=== PATIENT | female | born 1980 | race Two or more races ===

== ENCOUNTER 2023-02-18 09:35 | Emergency (ER) | payer BC, SELFPAY ==
[2023-02-18 09:44] VITALS: BP 139/103; PULSE 69; RESP 16; TEMP 36.8; O2SAT 95; BMI 19.4
--- NOTE | 2023-02-18 10:03 | ED_ITS ---
HPI - Abdominal Pain General Chief Complaint: Abdominal Pain Stated Complaint: ABDOMEN/KIDNEY PAIN Time Seen by Provider: 02/18/23 10:03 Source: patient Mode of arrival: Wheelchair Limitations: no limitations History of Present Illness HPI narrative: Patient process the emergency department complaining of abdominal pain. Patient states she has nausea, vomiting, and diarrhea. She had bowel problems for years. She has seen specialists in [place] and [place]. had a colonsocopy and egd in past. They have not been able to find anything. She states one doctor told her she had irritable bowel syndrome and another one to she was in remission. The patient states she Smokes a lot of marijuana. She does it to help her with her pain, and her anxiety. Patient denies any hematuria, dysuria. She has flank pain. She states she has vomited so much that her abdominal muscles hurt. Patient denies any vaginal bleeding, discharge. Related Data Previous Rx's Medication Instructions Recorded ketorolac 10 mg tablet 10 mg PO Q8H PRN pain 1 day #14 02/18/23 tabs ondansetron 8 mg disintegrating 8 mg PO Q8H 48 hours #6 tabs 02/18/23 tablet promethazine 25 mg tablet 25 mg PO TID PRN nausea and 02/18/23 vomiting #10 tabs Allergies Allergy/AdvReac Type Severity Reaction Status Date / Time Penicillins Allergy Anaphylaxis Verified 02/18/23 09:43 Review of Systems ROS Status of ROS 10 or more systems reviewed and unremarkable except as noted in history and below PFSH PFSH Social History Smoking status: Heavy tobacco smoker Exam Narrative Exam Narrative: Nurses notes and vital signs reviewed and patient is not hypoxic. General: Nontoxic,appears in pain, uncomfortable, no distress. Skin: Warm, dry, no pallor noted. No Rash Head: Normocephalic, atraumatic. Neck: Supple, non-tender. Eye: Pupils are equal, round and EOMI. No scleral icterus. Ears, Nose, Mouth, and Throat: TM clear, no posterior oropharynx erythema or nasal mucosal hypertrophy, uvula is mid-line Oral mucosa is moist Cardiovascular: Regular Rate and Rhythm without murmur, gallop or rub. Respiratory: No accessory muscle use or respiratory distress. Lungs are clear to auscultation, no wheezing, rales or rhonchi Chest Wall: no tenderness Back: No midline thoracic or lumbar vertebral tenderness. No CVA tenderness Musculoskeletal: normal ROM, no calf or popliteal tenderness, no lower extremity edema/swelling GI: Abdomen is soft, non-distended. Normal bowel sounds. diffsue llq pain, and rlq pain, tenderness to palpation. No rebound, guarding, or rigidity noted. Neurological: A&O x4. No cranial nerve dysfunction observed. No truncal ataxia. Moves all extremities. Sensation intact. Psychiatric: Cooperative and interactive. anxious. Constitutional Vital Signs, click to edit/add: Last Vital Signs Temp 99.3 F 02/18/23 13:21 Pulse 93 H 02/18/23 13:21 Resp 16 02/18/23 13:21 BP 118/67 02/18/23 13:21 Pulse Ox 95 02/18/23 13:21 O2 Del Method Room Air 02/18/23 13:21 Course Vital Signs Vital signs: Vital Signs Temperature 98.2 F 02/18/23 09:44 Pulse Rate 69 02/18/23 09:44 Respiratory Rate 16 02/18/23 09:44 Blood Pressure 139/103 H 02/18/23 09:44 Pulse Oximetry 95 02/18/23 09:44 Oxygen Delivery Method Room Air 02/18/23 09:44 Temperature 99.3 F 02/18/23 13:21 Pulse Rate 93 H 02/18/23 13:21 Respiratory Rate 16 02/18/23 13:21 Blood Pressure 118/67 02/18/23 13:21 Pulse Oximetry 95 02/18/23 13:21 Oxygen Delivery Method Room Air 02/18/23 13:21 MDM - Abdominal Pain MDM Narrative Medical decision making narrative: Even 1 L of normal saline. She was given Toradol, and Zofran. Patient continued to complain of pain and she was given 4 mg of morphine. Patient states she smokes a lot of marijuana she has not been able to smoke any since she's been here she is getting anxious and she's having chest pain. EKG was done and is unremarkable sinus rhythm without any acute ischemic changes. Patient does not have any back pain, flank pain, no tenderness to her thoracic, or lumbar spine. There was no signs of infection. The patient denies any paresthesias, Saddle anesthesia, urinary, bowel incontinence, or retention or proximal weakness. Discussed all of the CT scan results and laboratory studies with patient. Patient given a prescription for Phenergan. She was also given a emergency department. Patient is stable for outpatient follow-up and treatment. At this time the patient is without objective evidence of an acute process requiring hospitalization or inpatient management. The patient has remained hemodynamically stable. No additional indication for emergent studies at this time. I answered all questions. Discussed discharge instructions including standard anticipatory guidance and what should prompt a return to the emergency department, including if they get worse are not getting better or develops any new or concerning symptoms. I've given them specific time frame in which to follow-up, and who to follow-up with. The patient demonstrates understanding. P atient is nontoxic and stable for discharge with outpatient follow-up. This note was created with the assistance of a speech recognition program. Although the intention is to generate documents that actually reflects the content of the visit, no guarantees can be provided that every mistake has been identified and corrected by editing. Differential Diagnosis Differential diagnosis: Likely abdominal pain, acute appendicitis, diverticulitis, gastroenteritis and small bowel obstruction Lab Data Attestation: I reviewed the patient's lab results. Labs: Lab Results 02/18/23 02/18/23 02/18/23 Range/Units 10:00 11:50 13:20 WBC 16.6 H (4.0-11.0) 10^3/uL RBC 4.27 (4.20-5.40) 10^6/uL Hgb 13.8 (12.0-16.0) g/dL Hct 40.4 (36.0-48.0) % MCV 94.6 (81.0-99.0) fL MCH 32.3 (26.7-34.0) pg MCHC 34.2 (29.9-35.2) g/dL RDW 13.0 (11.0-15.0) % Plt Count 257 (150-450) 10^3/uL MPV 9.5 (9.5-13.5) fL Neut % (Auto) 81.1 H (43.0-75.0) % Lymph % (Auto) 10.2 L (20.5-60.0) % [place] % (Auto) 8.1 (1.7-12.0) % Eos % (Auto) 0.1 L (0.9-7.0) % Baso % (Auto) 0.2 (0.2-2.0) % Neut # (Auto) 13.5 H (1.4-6.5) 10^3/uL Lymph # (Auto) 1.7 (1.2-3.8) 10^3/uL [place] # (Auto) 1.4 H (0.3-0.8) 10^3/uL Eos # (Auto) 0.0 (0.0-0.7) 10^3/uL Baso # (Auto) 0.0 (0.0-0.1) 10^3/uL Abs Immat Gran (auto) 0.05 H (0.00-0.03) 10^3/uL Imm/Tot Granulo (auto) 0.3 (0.0-0.5) % Sodium 134 L (136-145) mmol/L Potassium 3.6 (3.5-5.1) mmol/L Chloride 101 (98-107) mmol/L Carbon Dioxide 23.8 (21.0-32.0) mmol/L Anion Gap 12.8 BUN 6.0 L (7.0-18.0) mg/dL Creatinine 0.73 (0.55-1.02) mg/dL Est GFR ( Amer) >60 (>=60) Est GFR (Non-Af Amer) >60 (>=60) BUN/Creatinine Ratio 8.2 Glucose 106 (74-106) mg/dL Lactate 0.7 (0.4-2.0) mmol/L Calcium 8.5 (8.5-10.1) mg/dL Total Bilirubin 1.0 (0.2-1.0) mg/dL AST 8 L (15-37) U/L ALT 19 (14-59) U/L Alkaline Phosphatase 83 (46-116) U/L Total Protein 7.2 (6.4-8.2) g/dL Albumin 3.8 (3.4-5.0) g/dL Globulin 3.4 g/dL Albumin/Globulin Ratio 1.1 Lipase 38.0 L (73.0-393.0) U/L Urine Color Yellow (YELLOW) Urine Clarity Clear (CLEAR) Urine pH 6.5 (5.0-9.0) Ur Specific [place] <=1.005 A (1.005-1.025) Urine Protein Trace (NEG/TRACE) mg/dL Urine Glucose (UA) Negative (NEGATIVE) mg/dL Urine Ketones 15 A (NEGATIVE) mg/dL Urine Occult Blood Trace-i (NEGATIVE) Urine Nitrite Negative (NEGATIVE) Urine Bilirubin Negative (NEGATIVE) Urine Urobilinogen 1.0 (0.2-1.0) EU/dL Ur Leukocyte Esterase Negative (NEGATIVE) Urine RBC 5-10 A (0-2) #/HPF Urine WBC None seen (NONE SEEN) #/HPF Ur Squamous Epith Cells Many A (NONE/RARE) #/LPF Urine Crystals None seen (None Seen) #/HPF Urine Bacteria None seen (NONE SEEN) #/HPF Urine Casts None seen (NONE SEEN) #/LPF Urine Mucus Trace A (NONE SEEN) Ur Culture Indicated? No Urine Opiates Screen Negative (NEGATIVE) Ur Buprenorphine Scrn Negative (NEGATIVE) Ur Oxycodone Screen Negative (NEGATIVE) Urine Methadone Screen Negative (NEGATIVE) Ur Propoxyphene Screen Negative (NEGATIVE) Ur Barbiturates Screen Negative (NEGATIVE) U Tricyclic Antidepress Negative (NEGATIVE) Ur Phencyclidine Scrn Negative (NEGATIVE) Ur Amphetamines Screen Negative (NEGATIVE) U Methamphetamines Scrn Negative (NEGATIVE) U Benzodiazepines Scrn Negative (NEGATIVE) Urine Cocaine Screen Negative (NEGATIVE) U Cannabinoids Screen Positive A (NEGATIVE) SARS-CoV-2 (PCR) Negative (NEGATIVE) ECG Data Attestation: I personally reviewed and interpreted this ECG as follows: Discharge Plan Discharge Chief Complaint: Abdominal Pain 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, Abdominal pain Patient Disposition: Home, Self-Care Time of Disposition Decision: 14:04 Condition: Good Mode of Transportation: Private Vehicle Prescriptions / Home Meds: New promethazine 25 mg tablet 25 mg PO TID PRN (Reason: nausea and vomiting) Qty: 10 0RF ondansetron 8 mg tablet,disintegrating 8 mg PO Q8H 2 Days Qty: 6 0RF Rx Instructions: 1st dose 1-2 hr before radiation ketorolac 10 mg tablet 10 mg PO Q8H PRN (Reason: pain) 1 Days Qty: 14 0RF Instructions: Abdominal Pain (ED), Pelvic Pain (ED) Stand Alone Forms: Portal Instructions Referrals: Abhay Moreno MD [Primary Care Provider] - 1 week
--- NOTE | 2023-02-18 10:17 | CT_ITS ---
The [address] [address] Patient Name: NAHUM SEGOVIA MRN: [id number] date: 1980 Sex: F Assigned Patient Location: ER Current Patient Location: ER Accession/Order Number: [id number] Exam Date: 02/18/2023 11:03 Report Date: 02/18/2023 11:47 At the request of: ROSS VALLEJO Procedure: CT abdomen pelvis w con EXAM: CT abdomen pelvis w con; [id number] REASON FOR EXAM: abd pain TECHNIQUE: Helical CT images of the abdomen and pelvis were obtained after the administration of IV contrast. Multiplanar reformats were generated at the scanner. Dose reduction technique used: Automated exposure control and/or adjustment of the mA and/or kV according to patient size and/or use of iterative reconstruction technique. COMPARISON: CT abdomen/pelvis 07/01/2018. FINDINGS: Visualized Chest: Partially visualized benign pericardial cyst. No acute abnormality. Abdomen: Liver: -Multiple well-circumscribed subcentimeter hypodensities in both right and left lobes liver are too small to further characterize with any imaging modality though likely represent benign lesions. -Mild focal fatty infiltration along the falciform ligament. Gallbladder: Resected. Bile Ducts: Likely within expected limits given postcholecystectomy. Overall degree of intrahepatic and extrahepatic biliary ductal dilatation is similar compared with 07/01/2018. Pancreas: No mass, ductal dilatation, or inflammatory changes. Spleen: No splenomegaly or focal lesion. Adrenals: -Intermediate attenuation left adrenal nodule measuring 13 x 13 mm (series 3 image 22), previously 9 x 10 mm on 07/01/2018. -No right adrenal nodule. Kidneys: -No stones or hydronephrosis. -No mass. Vascular: -Mild narrowing of the left renal vein as it passes between the aorta and SMA. There is reflux of contrast into the left gonadal vein. Lymph Nodes: No adenopathy. Abdominal Wall: No hernia or mass. Pelvis: -Heterogeneously enhancing fibroid uterus. -There is prominent vasculature about the uterus and vagina which can be seen in the setting of pelvic congestion syndrome. Bowel/Peritoneal Cavity/Mesentery: -No bowel obstruction or significant ileus. -No acute inflammatory changes. -No free air or free fluid. Musculoskeletal: No acute fracture or suspicious osseous lesion. CT/CT abdomen pelvis w con IMPRESSION: 1. No acute intra-abdominal abnormality demonstrated. 2. Constellation of findings suspect for pelvic congestion syndrome secondary to narrowing of the left renal vein as it passes between the aorta and SMA. 3. Enhancing fibroid uterus. Degree of enhancement is more than typically seen which increases the suspicion for fibroid malignant degeneration, however, this finding could be within expected limits given pelvic congestion. Consider LAB AIDE consultation for further evaluation. 4. Left adrenal nodule measuring up to 13 mm, mildly increased in size compared with 10 mm on 07/01/2018. Recommend nonemergent adrenal protocol CT for further evaluation. Electronically authenticated by: KALYA MANCUSO Date: 02/18/2023 11:47
[2023-02-18] MEDS: 0.9 % SODIUM CHLORIDE 1,000 ML 999 ML IV (10:20)
[2023-02-18] MEDS: ONDANSETRON PF 4 MG/2 ML VIAL IV (10:21)
[2023-02-18] MEDS: KETOROLAC TROMETHAMINE 30 MG/ML VIAL IVP (10:21)
[2023-02-18 10:36] LABS: Basophils Percent Auto 0.2 % (0.2-2.0); Eosinophils Percent Auto 0.1 % (0.9-7.0); Hematocrit 40.4 % (36.0-48.0); Hemoglobin 13.8 g/dL (12.0-16.0); Immature Granulocytes Abs Auto 0.05 10^3/uL (0.00-0.03); Immature Granulocytes Pct Auto 0.3 % (0.0-0.5); Lymphocytes Absolute Auto 1.7 10^3/uL (1.2-3.8); Lymphocytes Percent Auto 10.2 % (20.5-60.0); Mean Corpuscular HGB Conc 34.2 g/dL (29.9-35.2); Mean Corpuscular Hemoglobin 32.3 pg (26.7-34.0); Mean Corpuscular Volume 94.6 fL (81.0-99.0); Mean Platelet Volume 9.5 fL (9.5-13.5); Monocytes Absolute Auto 1.4 10^3/uL (0.3-0.8); Monocytes Percent Auto 8.1 % (1.7-12.0); Neutrophils Absolute Auto 13.5 10^3/uL (1.4-6.5); Neutrophils Percent Auto 81.1 % (43.0-75.0); Platelet Count 257 10^3/uL (150-450); Red Blood Count 4.27 10^6/uL (4.20-5.40); White Blood Count 16.6 10^3/uL (4.0-11.0)
[2023-02-18 11:05] LABS: Alanine Aminotransferase 19 U/L (14-59); Albumin Globulin Ratio 1.1; Albumin Level 3.8 g/dL (3.4-5.0); Alkaline Phosphatase 83 U/L (46-116); Anion Gap 12.8; Aspartate Amino Transferase 8 U/L (15-37); BUN Creatinine Ratio 8.2; Calcium 8.5 mg/dL (8.5-10.1); Carbon Dioxide 23.8 mmol/L (21.0-32.0); Chloride 101 mmol/L (98-107); Estimated GFR (African America >60 (>=60); Estimated GFR (Non-African Ame >60 (>=60); Globulin 3.4 g/dL; Glucose 106 mg/dL (74-106); Potassium 3.6 mmol/L (3.5-5.1); Sodium 134 mmol/L (136-145); Total Protein 7.2 g/dL (6.4-8.2)
[2023-02-18 11:07] LABS: Lactate/Lactic Acid 0.7 mmol/L (0.4-2.0)
[2023-02-18 12:15] LABS: SARS-CoV-2 Ag NEGATIVE (NEGATIVE)
--- NOTE | 2023-02-18 12:53 | PC.NURSE ---
Pt continues to state she can not provide a urine sample at this time. I suggested possibly doing a straight cath but pt states she would refuse. Endorsed to Dr Foster
[2023-02-18] MEDS: HYOSCYAMINE SULFATE 0.125 MG TAB.SUBL PO (13:09)
[2023-02-18] MEDS: MORPHINE SULFATE 4 MG/ML VIAL IV (13:15)
[2023-02-18 13:21] VITALS: BP 118/67; PULSE 93; RESP 16; TEMP 37.4; O2SAT 95
--- NOTE | 2023-02-18 13:41 | ECG_ITS ---
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
[2023-02-18] MEDS: PROMETHAZINE HCL 25 MG/ML VIAL IV (13:58)
[2023-02-18 14:06] LABS: Bilirubin Urine NEGATIVE (NEGATIVE); Blood Urine TRACE-I (NEGATIVE); Clarity Urine CLEAR (CLEAR); Color Urine YELLOW (YELLOW); Glucose Urine UA NEGATIVE (NEGATIVE); Ketones Urine 15 mg/dL (NEGATIVE); Leukocyte Esterase Urine NEGATIVE (NEGATIVE); Nitrite Urine NEGATIVE (NEGATIVE); Protein Urine TRACE mg/dL (NEG/TRACE); Specific Gravity Urine <=1.005 (1.005-1.025); pH Urine 6.5 (5.0-9.0)
[2023-02-18 14:11] LABS: Urine Microscopic Indicated YES
[2023-02-18 14:15] LABS: Bacteria Urine NONE SEEN #/HPF (NONE SEEN); Cast Seen? NONE SEEN #/LPF (NONE SEEN); Crystals Seen? None Seen #/HPF (None Seen); Mucus Urine TRACE (NONE SEEN); Squamous Epithelial Cell Urine MANY #/LPF (NONE/RARE); Urine Culture Indicated NO; WBC Urine NONE SEEN #/HPF (NONE SEEN)
[2023-02-18 14:18] LABS: Amphetamine Screen Urine NEGATIVE (NEGATIVE); Barbiturates Screen Urine NEGATIVE (NEGATIVE); Benzodiazepines Screen Urine NEGATIVE (NEGATIVE); Buprenorphine Screen Urine NEGATIVE (NEGATIVE); Cannabinoid Screen Urine POSITIVE (NEGATIVE); Cocaine Screen Urine NEGATIVE (NEGATIVE); Methadone Screen Urine NEGATIVE (NEGATIVE); Methamphetamines Screen Urine NEGATIVE (NEGATIVE); Opiate Screen Urine NEGATIVE (NEGATIVE); Oxycodone Screen Urine NEGATIVE (NEGATIVE); Phencyclidine Screen Urine NEGATIVE (NEGATIVE); Tricyclic Antidepressant Urine NEGATIVE (NEGATIVE)
[2023-02-18 14:44] VITALS: BP 118/67; PULSE 95; RESP 20; TEMP 37.4; O2SAT 95
[2023-02-18 16:10] LABS: SARS-CoV-2 NAA NOT DETECTED (NOT DETECTE)
== END 2023-02-18 14:52 | disposition home or self-care (01) ==
PROVIDERS: Emergency Provider Emergency Medicine; PCP Family Medicine
DX: R10.9 Unspecified abdominal pain (principal); N94.89 Other specified conditions associated with female genital organs and menstrual cycle; F12.90 Cannabis use, unspecified, uncomplicated; F17.210 Nicotine dependence, cigarettes, uncomplicated; Z20.822 Contact with and (suspected) exposure to COVID-19
CPT/HCPCS: 36415; 74177; 80053; 80307; 81001; 83605; 83690; 85025; 87635; 87811; 93005; 96361; 96374; 96375; 99285; Q9967; U0003

== ENCOUNTER 2023-08-09 15:06 | Outpatient (OUT) | payer BC, SELFPAY ==
[2023-08-09 15:50] LABS: Estimated Average Glucose 108 mg/dL; Glycohemoglobin A1C 5.4 % (4.5-6.2)
[2023-08-09 15:52] LABS: Basophils Percent Auto 0.4 % (0.2-2.0); Eosinophils Percent Auto 0.7 % (0.9-7.0); Hematocrit 41.2 % (36.0-48.0); Hemoglobin 13.7 g/dL (12.0-16.0); Lymphocytes Absolute Auto 3.3 10^3/uL (1.2-3.8); Lymphocytes Percent Auto 60.2 % (20.5-60.0); Mean Corpuscular HGB Conc 33.3 g/dL (29.9-35.2); Mean Corpuscular Hemoglobin 31.9 pg (26.7-34.0); Mean Corpuscular Volume 95.8 fL (81.0-99.0); Mean Platelet Volume 9.5 fL (9.5-13.5); Monocytes Absolute Auto 0.6 10^3/uL (0.3-0.8); Monocytes Percent Auto 11.1 % (1.7-12.0); Neutrophils Absolute Auto 1.5 10^3/uL (1.4-6.5); Neutrophils Percent Auto 27.6 % (43.0-75.0); Platelet Count 201 10^3/uL (150-450); Red Cell Distribution Width 12.3 % (11.0-15.0); White Blood Count 5.4 10^3/uL (4.0-11.0)
--- NOTE | 2023-08-09 15:58 | XR_ITS ---
The [place] [id number] Patient Name: NAHUM SEGOVIA MRN: [id number] date: 1980 Sex: F Assigned Patient Location: LAB Current Patient Location: Accession/Order Number: [id number] Exam Date: 08/09/2023 15:52 Report Date: 08/10/2023 07:51 At the request of: JOHN PRICE Procedure: XR lumbar spine 2-3V EXAMINATION: XR lumbar spine 2-3V HISTORY: lumbar radiculopathy M54.16 COMPARISON: No relevant comparison available. FINDINGS: BONES: Normal alignment with no acute fracture or spondylolisthesis. Mild degenerative spondylosis most significant at L2-L3. Mild facet osteoarthropathy DISC SPACES: Normal. No significant disc height narrowing, subluxation, or endplate abnormality. PARASPINOUS: Negative. No paraspinous abnormality is seen. OTHER: Right upper quadrant calcifications from cholecystectomy XR/XR lumbar spine 2-3V IMPRESSION: Mild degenerative changes Electronically authenticated by: RONNIE DUONG Date: 08/10/2023 07:51
[2023-08-09 16:02] LABS: Alanine Aminotransferase 18 U/L (14-59); Albumin Globulin Ratio 1.1; Albumin Level 3.6 g/dL (3.4-5.0); Alkaline Phosphatase 64 U/L (46-116); Anion Gap 11.2; Aspartate Amino Transferase 13 U/L (15-37); BUN Creatinine Ratio 9.9; Bilirubin Total 0.3 mg/dL (0.2-1.0); Calcium 8.5 mg/dL (8.5-10.1); Carbon Dioxide 27.2 mmol/L (21.0-32.0); Chloride 106 mmol/L (98-107); Chol HDL Ratio 2.6; Cholesterol 171 mg/dL (<=200); Estimated GFR (African America >60 (>=60); Estimated GFR (Non-African Ame 60 (>=60); Free T3 1.99 pg/mL (2.18-3.98); Globulin 3.4 g/dL; Glucose 90 mg/dL (74-106); HDL Cholesterol 67 mg/dL (40-60); Potassium 3.4 mmol/L (3.5-5.1); Sodium 141 mmol/L (136-145); Triglycerides 134 mg/dL (<=150); VLDL CHOLESTEROL 26.8 mg/dL
[2023-08-10 10:10] LABS: Insulin 33.4 uIU/mL (2.6-24.9)
== END 2023-08-09 15:07 | disposition home or self-care (01) ==
LOC: LAB 15:07
PROVIDERS: PCP Family Medicine; Visit Provider Family Medicine
DX: M54.16 Radiculopathy, lumbar region (principal); R53.1 Weakness; E78.5 Hyperlipidemia, unspecified; R73.09 Other abnormal glucose; D64.9 Anemia, unspecified; E55.9 Vitamin D deficiency, unspecified
CPT/HCPCS: 36415; 72100; 80053; 80061; 82306; 83036; 83525; 83540; 84436; 84443; 84481; 85025

== ENCOUNTER 2023-10-28 07:03 | Outpatient (OUT) | payer SELFPAY ==
--- OUTSIDE RECORDS SUMMARY | 2023-10-28 07:08 | XMS_ITS | CCD ---
Author Organization [facility] Care Team Providers Care Track Watchman Name Role Phone John Moreno MD Primary Care Provider [phone] John Moreno Primary Care Physician Gregg PICKERING Attending Unavailable Ethany PROVIDERJohn Referring Unavailabl e Gregg PICKERING Attending Unavailable HOY ., DR LOPEZ Admitting Unavailable HOY ., DR LOPEZ Attending Unavailable HOY ., DR LOPEZ Primary Care Unavailable HOY ., DR LOPEZ Consulting Unavailable PEP, DR RONNIE Fierro Consulting Unavailable HOY ., DR LOPEZ Admitting Unavailable HOY ., DR LOPEZ Attending Unavailable HOY ., DR LOPEZ Primary Care Unavailable HOY ., DR LOPEZ Consulting Unavailable Laura Schrader Consulting Unavailable SHELDON BENNETT Admitting Unavailable SHELDON BENNETT Attending Unavailable HOY ., DR LOPEZ Primary Care Unavailable SHELDON BENNETT Consulting Unavailable NILL ., DR ESCOBEDO Admitting Unavailable NILL ., DR ESCOBEDO Attending Unavailable HOY ., DR LOPEZ Primary Care Unavailable NILL ., DR ESCOBEDO Consulting Unavailable SEMAJ MCGOVERN Consulting Unavailable MARLONMERRILL NARANJO Consulting Unava ilable HOY ., DR LOPEZ Admitting Unavailable HOY ., DR LOPEZ Attending Unavailable HOY ., DR LOPEZ Primary Care Unavailable NILL ., DR ESCOBEDO Admitting Unavailable NILL ., DR ESCOBEDO Attending Unavailable HOY ., DR LOPEZ Primary Care Unavailable NILL ., DR ESCOBEDO Consulting Unavailable JOHN MORENO Primary Care Unavailable CAROL MCCLELLAND Referring Unavailable POOL, QUYNH E Referring Unavailable JOHN MORENO Primary Care Unavailable CAROL MCCLELLAND Referring Unavailable JOHN MORENO Primary Care Unavailable CAROL MCCLELLAND Referring Unavailable HOYJOHN M Primary Care Unavailable CAROL MCCLELLAND Attending Unavailable CAROL MCCLELLAND Referring Unavailable JOHN MORENO Primary Care Unavailable CAROL MCCLELLAND Referring Unavailable JOHN MORENO Primary Care Unavailable John Moreno MD Primary Care Provider [phone] Quynh Hughes CNM Unavailable JEANETTE CALABRESE Referring Unavailable JEANETTE CALABRESE Attending Unavailable JOHN MORENO Primary Care Unavailable RADIOLOGY, RADIOLOGIST Attending Unavailab le JOURDAN PASTRANAAE M Referring Unavailable HAMOUDA, LINDA M Referring Unavailable HAMOUDA, LINDA M Referring Unavailable HAMOUDA, LINDA M Attending Unavailable Allergies Allergy Classification Reported Allergen(s) Allergy Type Date of Onset Reaction(s) Facility Adhesive Tape (3 sources) Adhesive Tape Substance Allergy 3 [employer] Latex (3 sources) Latex Substance Allergy 3 [employer] NSAIDs (3 sources) Ibuprofen Drug Allergy 3 [employer] Penicillins (antibiotic) (3 sources) Penicillins Drug Allergy 3 [employer] (4 sources) Adhesive Tape; Translations: [Adhesive tape] Propensity to adverse reactions to drug 5 [employer] (3 sources) Desonide; Translations: [DESONIDE] Drug Allergy 5 Other (See Comments) [employer] (3 sources) Ibuprofen; Translations: [IBUPROFEN] Drug Allergy 3 Other (See Comments) [employer] (5 sources) Latex; Translations: [Latex] Propensity to adverse reactions to drug 3 Other (See Comments), Weal (disorder) [employer] Work Phone: (5 sources) Penicillins; Translations: [Penicillins] Propensity to adverse reactions to drug 5 Rash [employer] Work Phone: (2 sources) predniSONE; Translations: [PREDNISONE] Drug Allergy 6 Swelling [employer] Work Phone: (3 sources) Cephalexin; Translations: [cephalexin] Drug Allergy 3 Unknown (qualifier value) [facility] (2 sources) Penicillin; Translations: [penicillin] Drug Allergy Anaphylaxis (disorder) General [facility] (1 source) Cephalexin Drug Allergy [facility] (2 sources) Ibuprofen Drug Allergy 5 [facility] (2 sources) Latex Drug allergy (disorder) 5 [facility] (2 sources) predniSONE Drug Allergy 6 [facility] (1 source) Adhesive agent; Translations: [ADHESIVE] Propensity to adverse reactions to drug (disorder) 3 [facility] Rep[facility] (1 source) Morphine; Translations: [MORPHINE] Drug Allergy 3 [facility] Medications Current Medications Medication Drug Class(es) Dates Sig (Normalized) Sig (Original) ondansetron 4 mg disintegrating oral tablet (6 sources) Serotonin-3 Receptor Antagonist Start: 09-04-2021 take 1 tablet by mouth every eight hours as needed for nausea ondansetron (ZOFRAN ODT) 4 MG disintegrating tablet Take 1 tablet by mouth every 8 hours as needed for Nausea or Vomiting 10 tablet 0 09/04/2021 Active Start: 09-03-2021 End: 09-04-2021 ondansetron (ZOFRAN) injecti on 4 mg Start: 09-03-2021 End: 09-03-2021 ondansetron (ZOFRAN) 4 MG/2M L injection Start: 01-24-2021 take 1 tablet by prince th every eight hours as needed for nausea ondansetron (ZOFRAN ODT) 4 MG disintegrating tablet Take 1 tablet by mouth every 8 hours as needed for Nausea, Vomiting or Other (headache) 10 tablet 0 01/24/2021 Active Completed/Discontinued Medications Medication Drug Class(es) Dates Sig (Normalized) Sig (Original) albuterol 0.833 mg/ml / ipratropium bromide 0.167 mg/ml inhalation solution (2 sources) Anticholinergic, beta2-Adrenergic Agonist Start: 09-03-2021 End: 09-03-2021 ipratropium-albute rol (DUONEB) nebulizer solution 1 ampule Start: 09-03-2021 End: 09-03-2021 ipratropium-albuterol (DUONE B) 0.5-2.5 (3) MG/3ML nebulizer solution calcium chloride 0.0014 meq/ml / potassium chloride 0.004 meq/ml / sodium chloride 0.103 meq/ml / sodium lactate 0.028 meq/ml injectable solution (1 source) Start: 09-04-2021 End: 09-04-2021 lactated ringers infusion 1 ml ketorolac tromethamine 30 mg/ml cartridge (2 sources) Nonsteroidal Anti-inflammatory Drug, Cyclooxygenase Inhibitor Start: 09-03-2021 End: 09-04-2021 ketorolac (TORADOL) injection 30 mg 1 ml LORazepam 2 mg/ml injection (1 source) Benzodiazepine Start: 09-04-2021 End: 09-04-2021 LORazepam (ATIVAN) injection 1 mg 50 ml sodium chloride 9 mg/ml injection (2 sources) Start: 09-03-2021 End: 09-04-2021 0.9 % sodium chloride bolus Problems Active Problems Problem Classification Problem Date Documented Da te Episodic/Chronic Abdominal hernia (1 source) Left inguinal hernia 01-16-2022 Episodic Abdominal pain (8 sources) Unspecified abdominal pain; Translations: [Epigastric pain] Onset: 2 Episodic Asthma (1 source) Exacerbation of moderate persistent asthma; Translations: [Moderate persistent asthma with (acute) exacerbation] Chronic Benign neoplasm of uterus (1 source) Uterine leiomyoma 01-16-2022 Episodic Complications of surgical procedures or medical care (1 source) Postgastric surgery syndrome 01-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 Episodic Esophageal disorders (2 sources) Gastroesophageal reflux disease; Translations: [Gastro-esophageal reflux disease without esophagitis] Onset: 2 01-16-2022 Chronic Fluid and electrolyte disorders (1 source) Dehydration; Translations: [Dehydration] Episodic Nonmalignant breast conditions (1 source) Fibrocystic disease of breast 01-16-2022 Chronic Nonmalignant breast conditions (6 sources) Unspecified lump in unspecified breast; Translations: [Unspecified lump in the left breast, unspecified quadrant] Onset: 4 Episodic Other connective tissue disease (1 source) Impingement syndrome of shoulder region 01-16-2022 Episodic Other female genital disorders (1 source) Other specified noninflammatory disorders of vagina; Translations: [Other specified noninflammatory disorders of vagina] Onset: 3 Episodic Other gastrointestinal disorders (3 sources) Diarrhea; Translations: [Diarrhea, unspecified] Onset: 2 Episodic Other gastrointestinal disorders (1 source) Hemorrhagic diarrhea 01-21-2022 Episodic Other gastrointestinal disorders (1 source) History of gastritis 01-16-2022 Episodic Other lower respiratory disease (2 sources) Dyspnea; Translations: [Shortness of breath] Episodic Other screening for suspected conditions (not mental disorders or infectious disease) (7 sources) Other abnormal and inconclusive findings on diagnostic imaging of breast; Translations: [Encounter for screening mammogram for malignant neoplasm of breast] Onset: 3 05-04-2023 Episodic Regional enteritis and ulcerative colitis (1 source) Crohn's disease; Translations: [Crohn's disease, unspecified, with unspecified complications] Chronic Residual codes; unclassified (1 source) Tobacco user; Translations: [Tobacco use] Onset: 2 Episodic Residual codes; unclassified (2 sources) Personal history of other specified conditions; Translations: [Personal history of other specified conditions] Onset: 4 Episodic Screening and history of mental health and substance abuse codes (1 source) Tobacco use and exposure - finding 01-21-2022 Chronic Sexually transmitted infections (not HIV or hepatitis) (1 source) Gonococcal infection, unspecified; Translations: [Gonococcal infection, unspecified] Onset: 3 Episodic Spondylosis; intervertebral disc disorders; other back problems (1 source) Cervical disc disorder 01-16-2022 Chronic Spondylosis; intervertebral disc disorders; other back problems (1 source) Low back pain 01-16-2022 Episodic Substance-related disorders (1 source) Nicotine dependence, cigarettes, uncomplicated; Translations: [NICOTINE DEPEND CIGARETTES UNCOMP] Onset: 2 Chronic Superficial injury; contusion (2 sources) Contusion of head; Translations: [Contusion of unspecified part of head, initial encounter] Episodic Unclassified (1 source) Body mass index 20-24 - normal 01-21-2022 Unclassified (1 source) CONTACT W/AND (SUSP) EXPOS COVID-19; Translations: [CONTACT W/AND (SUSP) EXPOS COVID-19] Onset: 2 Urinary tract infections (4 sources) Acute cystitis with hematuria; Translations: [ACUTE CYSTITIS WITH HEMATURIA] Onset: 3 Episodic Past or Other Problems Problem Classification Problem Date Documented Da te Episodic/Chronic Gastritis and duodenitis (1 source) Gastritis, unspecified, without bleeding; Translations: [GASTRITIS UNS WITHOUT BLEEDING] Onset: 02-20-2022 Episodic Nausea and vomiting (2 sources) Nausea and vomiting; Translations: [Nausea with vomiting, unspecified] Onset: 02-20-2022 Episodic Other gastrointestinal disorders (1 source) Change in bowel habit; Translations: [CHANGE IN BOWEL HABIT] Onset: 02-20-2022 Episodic Other gastrointestinal disorders (1 source) Diarrhea, unspecified; Translations: [DIARRHEA UNSPECIFIED] Onset: 02-20-2022 Episodic Residual codes; unclassified (1 source) Acquired absence of other specified parts of digestive tract; Translations: [ACQ ABSENCE OTH PART DIGESTV TRACT] Onset: 02-20-2022 Episodic Results Test Name Value Interpretation Reference Range Facility Orders Onlyon 09-28-2023 Orders Only [id number] Betzy Roberts 1980 F Date Provider Department Center 09/28/2023 VERÓNICA SUBRAMANIAN None Family History Problem Relation Age of Onset Colon cancer Maternal Grandfather Colon cancer Paternal Grandfather Family Status - Relation Status Age at Maternal Grandfather Paternal Grandfather Normal [facility] APTTon 09-07-2023 ACTIVATED PARTIAL THROMBOPLASTIN TIME IN PPP BY COAGULATION ASSAY 30.4 Seconds Normal 25.0-35.0 [facility] Comment on above: Result Comment: Clin ical significance of the APTT is questionable in the presence of heparin. Performed By: #### L [id number] #### [facility] ([facility]) [address] [place] [address] BI MAMMOGRAM POST BIOPSY CLI Eric RICHARDSon 09-07-2023 BI MAMMOGRAM POST BIOPSY CLIP LEFT This is a summary report. The complete report is available in the patient's medical record. If you cannot access the medical record, please contact the sending organization for a detailed fax or copy. BI MAMMOGRAM POST BIOPSY CLIP LEFT 09/07/2023 4:10 PM HISTORY: Status post ultrasound-guided left breast biopsy to check for clip deployment.. COMPARISON: April 2023, December 2014 and January 2013 TECHNIQUE: Conventional mammogram images of the Left breast in CC and MLO projections. LATERALITY: Left FINDINGS: The breasts are heterogeneously dense, which may obscure small masses. Successful deployment of post biopsy clip in the upper outer aspect of the left breast with adjacent linear lucency likely represents postprocedure air. IMPRESSION: ASSESSMENT: Post Procedure mammograms for marker placement RECOMMENDATION: Waiting on Pathology A letter of notification will be sent to the patient regarding the results. Electronically signed: Cr Tomas. Normal [facility] CBCon 09-07-2023 Erythrocyte distribution width (RBC) [Ratio] 12.7 % Normal 11.5-15.0 [facility] Comment on above: Performed By: #### L [id number] #### [facility] ([facility]) [address] [place] [address] ERYTHROCYTE MEAN CORPUSCULAR HEMOGLOBIN CONCENTRATION (G/DL) BY AUTOMATED 34.6 g/dL Normal 32.0-35.0 [facility] Comment on above: Performed By: #### L [id number] #### [facility] ([facility]) [address] [place] [address] Hematocrit (Bld) [Volume fraction] 39.0 % Normal 36.0-48.0 [facility] Comment on above: Performed By: #### L [id number] #### [facility] ([facility]) [address] [place] [address] Hemoglobin (Bld) [Mass/Vol] 13.5 g/dL Normal 12.0-15.0 [facility] Comment on above: Performed By: #### L [id number] #### [facility] ([facility]) [address] [place] [address] MCH (RBC) [Entitic mass] 32.3 pg Normal 27.0-33.0 [facility] Comment on above: Performed By: #### L [id number] #### [facility] [address] [place] [address] MCV (RBC) [Entitic vol] 93.3 fL Normal 82.0-98.0 [facility] Comment on above: Performed By: #### L [id number] #### [facility] ([facility]) [address] [place] [address] PLATELETS (10*3/UL) IN BLOOD AUTOMATED COUNT 261 10*3/uL Normal 150-400 [facility] Comment on above: Performed By: #### L [id number] #### [facility] ([facility]) [address] [place] [address] RBC (Bld) [#/Vol] 4.18 10*6/uL Normal 3.80-5.00 [facility] Comment on above: Performed By: #### L [id number] #### [facility] ([facility]) [address] [place] [address] WBC (Bld) [#/Vol] 6.58 10*3/uL Normal 4.00-10.60 [facility] Comment on above: Performed By: #### L [id number] #### [facility] ([facility]) [address] [facility] [place] [address] HISTOLOGY - TISSUE EXAMon LAB AP ASR DISCLAIMER The interpretation of this case included the use of immunohistochemistry or special stains. These tests have not been cleared or approved by the U.S. Food and Drug Administration. The FDA has determined that such clearance or approval is not necessary. These tests are used for clinical purposes and should not be regarded as investigational or for research. This laboratory is certified to perform high complexity testing under the Clinical Laboratory Improvement Amendments of 1998. Normal [facility] Comment on above: Performed By: #### L [id number] ####[facility] ([facility])[address] [place] [address] LAB AP CASE REPORT Normal [facility] Comment on above: Result Comment: Surg ical Pathology Case: [id number] Authorizing Provider: Linda Pastrana MD Collected: 09/07/2023 1345 Ordering Location: [facility] US [facility]AGING Received: 09/07/2023 1612 Pathologist: Matthew Cano MD Specimen: Breast, left Performed By: #### L [id number] ####[facility] ([facility])[address] [place] [address] LAB AP CLINICAL INFORMATION Order Diagnoses [facility] Comment on above: Result Comment: N63. 0 - Breast lump [ICD-10-CM] N63.20 - Mass of left breast, unspecified quadrant [ICD-10-CM] R92.8 - Other abnormal and inconclusive findings on diagnostic imaging of breast [ICD-10-CM] Performed By: #### L [id number] ####[facility] ([facility])[address] [place] [address] LAB AP GROSS DESCRIPTION A. Breast. [facility] Comment on above: Result Comment: Part A is received in formalin labeled with the patient's name Nahum Roberts and breast left. It consists of 2 yellow-white, fibrofatty needle core segments, 0.7 x 0.2 cm and 0.9 x 0.2 cm, submitted in cassette A1. Also received in the container, are 4 yellow-white, fibrofatty needle core fragments, ranging from 0.3 x 0.1 cm to 0.5 x 0.1 cm, submitted in cassette A2. Lexie Root, Pathologists' Flight Inspector Student Radha Blackman, Pathologists' Flight Inspector Performed By: #### L [id number] ####[facility] ([facility])[address] [place] [address] LAB AP IHC Immunohistochemistry with controls performed with p63 and smooth muscle myosin highlight intact myoepithelial layers. [facility] Comment on above: Performed By: #### L [id number] ####[facility] ([facility])[address] [place] [address] LAB AP MICROSCOPIC DESCRIPTION Microscopic examination performed. [facility] Comment on above: Performed By: #### L [id number] ####[facility] ([facility])[address] [place] [address] LAB AP REPORT FINAL DIAGNOSIS NARRATIVE [facility] Comment on above: Result Comment: [address], left, not otherwise specified, needle core biopsy: Benign breast parenchyma with fibrocystic change and adenosis. Microcalcifications identified. Performed By: #### L [id number] ####[facility] (BEAKER)[address] [place] [address] Labon 09-07-2023 Lab [id number] Marizol Roberts 1980 F Date Provider Department Center 09/07/20232244-[facility] LAB RESOURCE [facility] Family History Problem Relation Age of Onset Colon cancer Maternal Grandfather Colon cancer Paternal Grandfather Family Status - Relation Status Age at Maternal Grandfather Paternal Grandfather Normal [facility] PROTIME-INRon 09-07-2023 INR IN PPP BY COAGULATION ASSAY 0.97 Normal 0.90-1.10 [facility] Comment on above: Result Comment: ACCC P RECOMMENDED INR FOR WARFARIN THERAPY CONDITION INR PROPHYLAXIS OF VENOUS THROMBOSIS 2-3 (HIGH-RISK SURGERY) TREATMENT OF VENOUS THROMBOSIS 2-3 TREATMENT OF PULMONARY EMBOLISM 2-3 PREVENTION OF SYSTEMIC EMBOLISM: 2-3 ACUTE MYOCARDIAL INFARCTION TISSUE HEART VALVES VALVULAR HEART DISEASE ATRIAL FIBRILLATION RECURRENT SYSTEMIC EMBOLISM MECHANICAL HEART VALVE 2.5-3.5 FROM: ORAL ANTICOAGULANTS. MECHANISM OF ACTION, CLINICAL EFFECTIVENESS, AND OPTIMAL THERAPEUTIC RANGE. CHEST 1995;108:231S-246S. Performed By: #### L [id number] #### [facility] ([facility]) [address] [place] [address] PROTHROMBIN TIME (PT) IN PPP BY COAGULATION ASSAY 12.9 Seconds Normal 12.3-14.8 [facility] Comment on above: Performed By: #### L [id number] #### [facility] ([facility]) [address] [place] [address] 36on 08-03-2023 36 Reached out to pt to see what is going on she has not been scheduled for her left us breast biopsy and has no showed a mammogram on 07/27 and canceled one for 08/16. Pt was last seen 07/14/2023 Normal [facility] Orders Onlyon 07-16-2023 Orders Only [id number] ArmandoMarizol 1980 F Date Provider Department Center 07/16/2023 [id number], HISTORICAL DCC ONC DCC Family History Problem Relation Age of Onset Colon cancer Maternal Grandfather Colon cancer Paternal Grandfather Family Status - Relation Status Age at Maternal Grandfather Paternal Grandfather Normal [facility] Consulton 07-14-2023 Consult [id number] JeanetteandreiaMarizol 1980 F Date Provider Department Center 07/14/2023 Andre-LINDA PASTRANA ONC DCC Family History Problem Relation Age of Onset Colon cancer Maternal Grandfather Colon cancer Paternal Grandfather Family Status - Relation Status Age at Maternal Grandfather Paternal Grandfather Level of Service:52077 TX OFFICE/OUTPATIENT NEW HIGH MDM 60 MINUTES (GC) Reason for Visit and Comments: New Patient [[id number]] - Ref- Dr. Mcclelland ([facility] ENERGY CONSERVATION TECHNICIAN) Abnormal mammogram of both breast. Does pt needs bilateral breast biopsy? Lt breast biopsy 03/06/2013, Lt breast core biopsy 04/14/2012, and Rt breast biopsy 04/18/2010. Normal [facility] Orders Onlyon 07-01-2023 Orders Only [id number] Ra carmel Roberts 1980 F Date Provider Department Center 07/01/2023 [id number], HISTORICAL DCC ONC DCC No family history on file Normal [facility] BREAST IMAGING SECOND OPINIO N READINGon 05-05-2023 BREAST IMAGING SECOND OPINION READING EXAM: BREAST IMAGING SECOND OPINION READING, 05/04/2023 13:21 PM CLINICAL INDICATIONS: Patient presents from outside institution for second opinion. Patient underwent bilateral screening mammogram on March 26, 2023 for which the report stated there is an asymmetry with microcalcifications in the upper outer right breast along with closely grouped masses in the medial left breast that have been stable since 2013. However, patient had bilateral areas of palpable concern and diagnostic right breast mammogram and bilateral breast ultrasound was recommended. A bilateral breast ultrasound and right diagnostic mammogram were performed on April 27, 2023 for which the calcifications in the lateral right breast are recommended for stereotactic guided biopsy. The 2 adjacent solid masses in the left breast were also recommended for ultrasound guided biopsy though thought to represent fibroadenomas. COMPARISON: Mammogram February 10, 2013 MAMMOGRAM FINDINGS: The breasts are heterogeneously dense, which may obscure small masses. Patient underwent a bilateral screening mammogram on March 26, 2023 at an outside facility to include 2-D-3-D CC and ML MLO and ML views of both breasts. A barbell shaped biopsy marker is noted in the upper outer right breast at middle depth from prior benign biopsy. A triangular marker is placed. In the upper outer right breast at posterior depth in the area palpable concern beneath which there is a questionable mass noted that appears that appears stable from prior exam in 2012. There is a oval-shaped mass with calcifications within the mass noted in the lower outer right breast at mid/posterior depth. In the left breast there is a palpable area of concern marked in the upper outer mid to posterior depth which there is no new dominant mass, area of architectural distortion or suspicious microcalcifications noted. In the upper inner left breast at middle depth there are. 3 adjacent masses noted. Right diagnostic mammogram dated April 27, 2023 was obtained with 2-D-3-D ML and spot magnification CC and MLO views. There is persistence of a mass containing indeterminate microcalcifications. Magnification views are technically limited and is difficult to tell if these calcifications are suspicious or rim type calcifications. ULTRASOUND FINDINGS: Bilateral breast limited static ultrasound images dated April 27, 2023 were submitted for review. Right breast: There is a mass at 9:00 noted measuring 0.9 x 0.7 x 0.8 cm with indistinct margins which may be due to technique. This was felt to represent the mass noted on the mammogram with the indeterminate microcalcifications however, repeat ultrasound is necessary to further evaluate this area and ensure this correlation. No evaluation of the palpable area of concern in the upper outer right breast was performed. Limited evaluation of the right axilla demonstrates benign-appearing lymph nodes with normal cortex and normal fatty hilum. Left breast: At 1:00 in the area palpable concern in the left breast there is an oval-shaped hypoechoic mass noted measuring 0.7 x 0.3 x 0.7 cm (#1). Also within this area at 1:00 there is an area of hypoechogenicity measured measuring 0.3 x 0.3 x 0.3 cm (#2). At 10:00 there is a oval-shaped hypoechoic mass measuring 1.5 x 0.8 x 1 1.2 cm (#3). Also at 10:00 there is an additional oval-shaped well-circumscribed hypoechoic mass measuring 0.8 x 0.6 x 0.8 cm (#2). Also at 10:00 there is a third oval-shaped hypoechoic mass measuring 1.0 x 0.7 x 1.1 cm (#3). Limited visualization of the left axilla demonstrates no normal or abnormal lymph nodes. MRI FINDINGS: None IMPRESSION: 1. Mass containing indeterminate microcalcifications in the upper outer right breast for which a possible correlate was noted at 9:00 at mid to posterior depth under ultrasound however, I am not certain this correlates and is not well visualized on the outside ultrasound. A right diagnostic mammogram to include 2-D-3-D ML and spot magnification CC and ML views and possible ultrasound are recommended for further evaluation. 2. Reevaluation of the area palpable concern in the right breast is recommended as I am not convinced the outside ultrasound completely evaluated this area as it was not noted on the ultrasound images. 3. Multiple hypoechoic masses in the left breast at 1:00 in the area palpable concern and at 10:00 correlating with some mammographic masses for which a repeat left breast ultrasound is recommended for further evaluation. Normal [facility] ZORAIDA DIGITAL DIAGNOSTIC UNILATERAL RIGHTon 04-27-2023 [facility] ZORAIDA DIGITAL DIAGNOSTIC UNILATERAL RIGHT EXAM: JODEE ZORAIDA DIGITAL DIAGNOSTIC UNILATERAL RIGHT, US BREAST LIMITED LEFT, US BREAST LIMITED RIGHT HISTORY: Abnormal screening mammogram COMPARISON: Prior studies most recent of 03/26/2023 and as far back as 2010 and 2012 as previously reported. TECHNIQUE: Right mammogram with 90-degree mediolateral view and cone mag CC and MLO views, bilateral breast ultrasound. FINDINGS: No abnormalities are identified in the upper outer quadrants of either breast which were pointed out by the patient during her screening mammogram as being questionable palpable abnormalities. The additional mammographic images of the right breast show an area of amorphous calcifications in the lateral right breast 7.7 cm from the nipple which are questionably seen on ultrasound over an 8 mm in greatest diameter area at 9 o'clock. Since these are best seen on the conventional mammographic images, stereotactic biopsy is recommended. These are new from prior studies. In the left breast there are 2 adjacent solid nodules with smooth to macrolobulated borders without shadowing. The ultrasound is consistent with the mammogram which showed a multilobulated structure in the medial left breast. This area on ultrasound is identified at 10 o'clock and is located 9 cm from the nipple. The area represents a 1.3 x 0.7 cm nodule with small amount of internal Doppler flow immediately adjacent to a second nodule measuring 1 cm in diameter. These may represent fibroadenomas. Because they are solid and new from prior studies, biopsy is also recommended. This could be performed under ultrasound guidance. IMPRESSION: BIRADS: 4 - Findings demonstrate a suspicious abnormality. Biopsy is indicated. OVERALL ASSESSMENT- SUSPICIOUS A letter of notification will be sent to the patient regarding the results. Bilateral biopsy is recommended. In the right breast amorphous calcifications in the lateral right breast would be best biopsied under stereotactic approach. On the left, 2 adjacent solid structures which may represent fibroadenomas could be approached with ultrasound guidance. The findings were discussed with the patient. Interpreted by: Rajat Kiran Jr., MD Signed by: Rajat Kiran Jr., MD 04/27/23 Final result Normal [facility] US BREAST LIMITED LEFTon US BREAST LIMITED LEFT EXAM: [facility] ZORAIDA DIGITAL DIAGNOSTIC UNILATERAL RIGHT, US BREAST LIMITED LEFT, US BREAST LIMITED RIGHT HISTORY: Abnormal screening mammogram COMPARISON: Prior studies most recent of 03/26/2023 and as far back as 2010 and 2012 as previously reported. TECHNIQUE: Right mammogram with 90-degree mediolateral view and cone mag CC and MLO views, bilateral breast ultrasound. FINDINGS: No abnormalities are identified in the upper outer quadrants of either breast which were pointed out by the patient during her screening mammogram as being questionable palpable abnormalities. The additional mammographic images of the right breast show an area of amorphous calcifications in the lateral right breast 7.7 cm from the nipple which are questionably seen on ultrasound over an 8 mm in greatest diameter area at 9 o'clock. Since these are best seen on the conventional mammographic images, stereotactic biopsy is recommended. These are new from prior studies. In the left breast there are 2 adjacent solid nodules with smooth to macrolobulated borders without shadowing. The ultrasound is consistent with the mammogram which showed a multilobulated structure in the medial left breast. This area on ultrasound is identified at 10 o'clock and is located 9 cm from the nipple. The area represents a 1.3 x 0.7 cm nodule with small amount of internal Doppler flow immediately adjacent to a second nodule measuring 1 cm in diameter. These may represent fibroadenomas. Because they are solid and new from prior studies, biopsy is also recommended. This could be performed under ultrasound guidance. IMPRESSION: BIRADS: 4 - Findings demonstrate a suspicious abnormality. Biopsy is indicated. OVERALL ASSESSMENT- SUSPICIOUS A letter of notification will be sent to the patient regarding the results. Bilateral biopsy is recommended. In the right breast amorphous calcifications in the lateral right breast would be best biopsied under stereotactic approach. On the left, 2 adjacent solid structures which may represent fibroadenomas could be approached with ultrasound guidance. The findings were discussed with the patient. Interpreted by: Rajat Kiran Jr., MD Signed by: Rajat Kiran Jr., MD 04/27/23 Final result Normal [facility] US BREAST LIMITED RIGHTon US BREAST LIMITED RIGHT EXAM: [facility] ZORAIDA DIGITAL DIAGNOSTIC UNILATERAL RIGHT, US BREAST LIMITED LEFT, US BREAST LIMITED RIGHT HISTORY: Abnormal screening mammogram COMPARISON: Prior studies most recent of 03/26/2023 and as far back as 2010 and 2012 as previously reported. TECHNIQUE: Right mammogram with 90-degree mediolateral view and cone mag CC and MLO views, bilateral breast ultrasound. FINDINGS: No abnormalities are identified in the upper outer quadrants of either breast which were pointed out by the patient during her screening mammogram as being questionable palpable abnormalities. The additional mammographic images of the right breast show an area of amorphous calcifications in the lateral right breast 7.7 cm from the nipple which are questionably seen on ultrasound over an 8 mm in greatest diameter area at 9 o'clock. Since these are best seen on the conventional mammographic images, stereotactic biopsy is recommended. These are new from prior studies. In the left breast there are 2 adjacent solid nodules with smooth to macrolobulated borders without shadowing. The ultrasound is consistent with the mammogram which showed a multilobulated structure in the medial left breast. This area on ultrasound is identified at 10 o'clock and is located 9 cm from the nipple. The area represents a 1.3 x 0.7 cm nodule with small amount of internal Doppler flow immediately adjacent to a second nodule measuring 1 cm in diameter. These may represent fibroadenomas. Because they are solid and new from prior studies, biopsy is also recommended. This could be performed under ultrasound guidance. IMPRESSION: BIRADS: 4 - Findings demonstrate a suspicious abnormality. Biopsy is indicated. OVERALL ASSESSMENT- SUSPICIOUS A letter of notification will be sent to the patient regarding the results. Bilateral biopsy is recommended. In the right breast amorphous calcifications in the lateral right breast would be best biopsied under stereotactic approach. On the left, 2 adjacent solid structures which may represent fibroadenomas could be approached with ultrasound guidance. The findings were discussed with the patient. Interpreted by: Rajat Kiran Jr., MD Signed by: Rajat Kiran Jr., MD 04/27/23 Final result Normal [facility] Chlamydia/GC DNA, Uron 03-30 Chlamydia Probe, Ur Negative Normal NEG [facility] Comment on above: Result Comment: CHLA MYDIA TRACHOMATIS DNA not detected by nucleic acid amplification. This test is intended for medical purposes only and is not valid for the evaluation of suspected sexual abuse or for other forensic purposes. In certain contexts, culture may be required to meet applicable laws and regulations for diagnosis of C. trachomatis and N. gonorrhoeae infections. Per 2014 CDC recommendations, this test does not include confirmation of positive results by an alternative nucleic acid target. Performed By: #### U [facility] #### [place] [address] Restaurant Bartender: Bjorn Balderas MD Gonorrhea Probe, Ur Negative Normal NEG [facility] Comment on above: Result Comment: NEIS SERIA GONORRHOEAE DNA not detected by nucleic acid amplification. This test is intended for medical purposes only and is not valid for the evaluation of suspected sexual abuse or for other forensic purposes. In certain contexts, culture may be required to meet applicable laws and regulations for diagnosis of C. trachomatis and N. gonorrhoeae infections. Per 2014 CDC recommendations, this test does not include confirmation of positive results by an alternative nucleic acid target. Performed By: #### U [facility] #### [place] [address] [place] [address] Restaurant Bartender: Bjorn Balderas MD [facility] ZORAIDA DIGITAL SCREEN HANK Geronimo 03-30-2023 JODEE ZORAIDA DIGITAL SCREEN BILATERAL HISTORY: Screening. Patient presented complaining of bilateral breast lumpiness. TECHNIQUE: Bilateral digital screening mammogram with CAD. Digital breast tomosynthesis images. Webster skin markers were placed over both upper outer quadrants. FINDINGS: No specific abnormality underlying the skin markers. A vague asymmetry with microcalcifications in the upper outer right breast measures 1 cm diameter, 8 cm from the nipple. Further evaluation needed. 3 small closely grouped mass densities are present in the medial left breast, middle third, 8 cm from the nipple which are not significantly changed from left mammogram 01/27/2011 and bilateral mammogram 02/10/2013, but reevaluation is recommended. Bilateral breast ultrasound recommended for the palpable abnormalities. Two views of each breast show heterogeneously dense fibroglandular tissue, which may obscure small masses. BREAST DENSITY CODE: Heterogeneously dense Suspicious calcifications: None. Suspicious mass: None. (If skin markers were applied, circles represent skin lesions and linear markers represent scars.) ASSESSMENT: BIRADS: 0 - Need additional imaging evaluation at this time. OVERALL ASSESSMENT- NEED ADDITIONAL IMAGING EVALUATION. A letter of notification will be sent to the patient regarding the results. Bilateral breast ultrasound is needed for further evaluation for lumpiness complained of at the time of the screening mammogram. Magnification compression views upper outer right breast and 90 degree mediolateral recommended for further evaluation. Ultrasound needed for further evaluation of 3 closely associated small mass densities in the medial left breast. Interpreted by: Rajat Kiran Jr., MD Signed by: Rajat Kiran Jr., MD 03/30/23 Edited Result - FINAL Normal [facility] Chlamydia/GC DNA, TPon 03-01 Chlamydia Probe, TP Negative Normal NEG [facility] Comment on above: Result Comment: CHLA MYDIA TRACHOMATIS DNA not detected by nucleic acid amplification. This test is intended for medical purposes only and is not valid for the evaluation of suspected sexual abuse or for other forensic purposes. In certain contexts, culture may be required to meet applicable laws and regulations for diagnosis of C. trachomatis and N. gonorrhoeae infections. Per 2014 CDC recommendations, this test does not include confirmation of positive results by an alternative nucleic acid target. Performed By: #### C [facility] #### [address] [address] Restaurant Bartender: Bjorn Balderas MD Gonorrhea Probe, TP POSITIVE: NEISSERIA GONORRHOEAE DNA detected by nucleic acid amplification. Abnormal NEG [facility] Comment on above: Result Comment: This test is intended for medical purposes only and is not valid for the evaluation of suspected sexual abuse or for other forensic purposes. In certain contexts, culture may be required to meet applicable laws and regulations for diagnosis of C. trachomatis and N. gonorrhoeae infections. Per 2014 CDC recommendations, this test does not include confirmation of positive results by an alternative nucleic acid target. Results reported to the appropriate Health Department Performed By: #### C [facility] #### [address] [id number] Restaurant Bartender: Bjorn Balderas MD Cult,Genitalon 03-01-2023 Cult,Genital Specimen Description .VAGINA Culture NORMAL URO-GENITAL YESSI NEISSERIA GONORRHOEAE LIGHT GROWTH Results reported to the appropriate Health Department NEGATIVE FOR GROUP B STREPTOCOCCI Report Status FINAL 03/01/2023 Normal [facility] Comment on above: Performed By: #### G EC #### [address] [id number] Restaurant Bartender: Bjorn Balderas MD [facility] [address] [place] [address] [place] [address] Restaurant Bartender: Ronnie Mayo MD Cytology Reporton 02-26-2023 Cytology report Cyto stain.thin prep Doc (Cvx/Vag) (NOTE) Path Number: [id number] DIAGNOSIS Imaged ThinPrep Pap - Cervical (1 monolayer slide): Specimen Adequacy: Satisfactory for evaluation. - Endocervical/transformat ion zone component present. Descriptive Diagnosis: Negative for intraepithelial lesion or malignancy. Comments: Specimen was screened at [facility], [address] [place] [address] [employer]otech Screener: PAULINE Electronically Signed Out PARMINDER Jung(ASCP) pauline/03/06/2023 Source of Specimen: A: Imaged ThinPrep Pap - Cervical (1 monolayer slide) HPV Reflex?................. 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 The Pap smear is a screening test primarily for squamous epithelial lesions, which is subject to both false negative and false positive results. Your patient should be reminded to consult you immediately if she experiences any suspicious signs or symptoms, regardless of her Pap smear result. GYNECOLOGIC CYTOLOGY REPORT Patient Name: NAHUM ROBERTS [facility] Rec: [id number] [facility] ANATOMIC PATHOLOGY [address] [facility]. [place], [place] [address] Normal [facility] CULTURE URINEon 09-21-2022 CULTURE URINE Culture Observations : LIGHT GROWTH OF MIXED GENITAL YESSI. NO POTENTIAL PATHOGENS SEEN. Normal The [facility] Comment on above: Performed By: #### U RCX #### [facility] Laboratory [address] [place] [address] Dr. Christopher Rivera UA RANDOM W/MICROSCOPICon BACTERIA TRACE Abnormal NONE SEEN The [facility] Comment on above: Performed By: #### U AMIC #### [facility] [address] [place] [address] Dr. Christopher Rivera Bilirubin Ql (U) Negative Normal NEGATIVE The [facility] Comment on above: Performed By: #### U AMIC #### [facility] [address] [place] [address] Dr. Christopher Rivera CAST NONE SEEN Normal NONE SEEN [facility] Comment on above: Performed By: #### U AMIC #### [facility] [address] [address] [address] Christopher Rivera Clarity (U) CLEAR Normal CLEAR The [facility] Comment on above: Performed By: #### U AMIC #### [facility] [address] [address] [address] Christopher Rivera Color (U) LT. YELLOW Normal YELLOW The [facility] Comment on above: Performed By: #### U AMIC #### [facility] [address] [address] [address] Christopher Rivera Crystals LM Nom (Urine sed) NONE SEEN Normal NONE SEEN [facility] Comment on above: Performed By: #### U AMIC #### [facility] [address] [place] [address] Dr. Christopher Rivera Epithelial cells LM Ql (Urine sed) FEW Abnormal NONE SEEN /RARE The [facility] Comment on above: Performed By: #### U AMIC #### [facility] [address] [place] [address] Dr. Christopher Rivera Glucose Ql (U) Negative Normal NEGATIVE [facility] Comment on above: Performed By: #### U AMIC #### [facility] [address] [place] [address] Dr. Christopher Rivera Hemoglobin Ql (U) TRACE-INTACT Abnormal NEGATIVE [facility] Comment on above: Performed By: #### U AMIC #### [facility] [address] [place] [address] Dr. Christopher Rivera Ketones Ql (U) Negative Normal NEGATIVE [facility] Comment on above: Performed By: #### U AMIC #### [facility] [address] [place] [address] Dr. Christopher Rivera LEUKOCYTES Negative Normal NEGATIVE The [facility] Comment on above: Performed By: #### U AMIC #### [facility] [address] [place] [address] Dr. Christopher Rivera MUCOUS NONE SEEN Normal NONE SEEN [facility] Comment on above: Performed By: #### U AMIC #### [facility] [address] [address] [address] Christopher Rivera Nitrite Ql (U) Negative Normal NEGATIVE [facility] Comment on above: Performed By: #### U AMIC #### [facility] [address] [address] [address] Christopher Rivera pH (U) 5.5 [pH] Normal 5-9 The [facility] Comment on above: Performed By: #### U AMIC #### [facility] [address] [place] [address] Dr. Christopher Rivera RBC 0-2 Normal 0-2 [facility] Comment on above: Performed By: #### U AMIC #### [facility] [address] [place] [address] Dr. Christopher Rivera SPEC GRAVITY <=1.005 Abnormal 1.005-<=1.02 5 [facility] Comment on above: Performed By: #### U AMIC #### [facility] [address] [place] [address] Dr. Christopher Rivera UA PROTEIN Negative Normal NEGATIVE/ TRACE The [facility] Comment on above: Performed By: #### U AMIC #### [facility] [address] [place] [address] Dr. Christopher Rivera Urobilinogen Qn (U) 0.2 {Allyssa'U}/dL Normal 0.2 - 1. 0 [facility] Comment on above: Performed By: #### U AMIC #### [facility] [address] [place] [address] Dr. Christopher Rivera WBC NONE SEEN Normal NONE SEEN The [facility] Comment on above: Performed By: #### U AMIC #### [facility] [address] [place] [address] Dr. Christopher Rivera US KIDNEYS BLADDERon 023 US KIDNEYS BLADDER EXAMINATION: US KIDN EYS BLADDER HISTORY: Acute cystitis , hematuria, bilateral low back pain COMPARISON: CT abdomen pelvis 07/01/2018 TECHNIQUE: Ultrasound examination was performed of the kidneys and urinary bladder. FINDINGS: RIGHT KIDNEY: No evidence of pelvocaliectasis, mass, or calculi. Normal renal cortical parenchymal echogenicity. Color Doppler demonstrates blood flow within the kidney. Kidney: 11.4 x 4.8 x 3.9 cm LEFT KIDNEY: No evidence of pelvocaliectasis, mass, or calculi. Normal renal cortical parenchymal echogenicity. Color Doppler demonstrates blood flow within the kidney. Kidney: 10.6 x 5.2 x 6.2 cm BLADDER: No visible wall thickening, mass, or calculi. Post void residual: 0 mL URETERAL JETS: Visualized bilaterally. IMPRESSION: 1. Normal ultrasound appearance of the kidneys and urinary bladder. Electronically authenticated by: LAURA SCHRADER Date: 2022-09-01 10:51 Normal [facility] XR KUB 1 VIEWon 08-26-2022 XR KUB 1 VIEW EXAMINATION: XR KUB 1 VIEW HISTORY: Acute cystitis COMPARISON: No relevant comparison available. FINDINGS: KIDNEY/URETER - RIGHT: No visible renal or ureteral calcifications. KIDNEY/URETER - LEFT: No visible renal or ureteral calcifications. PELVIS: No visible ureteral calcifications. Any visible calcifications favor phleboliths. BOWEL: No abnormal dilation or deviation. BONES: No acute abnormality. OTHER: Negative. No abnormal gaseous collections. IMPRESSION: No definite urinary tract calculi Electronically authenticated by: RONNIE DUONG Date: 2022-08-26 12:57 Normal [facility] Pathology Noteon 02-20-2022 Pathology Note [id number] :127 Normal [facility] Outside Colonoscopyon 2021 Outside Colonoscopy [id number]#[id number]: 127 Normal [facility] Reminderson 02-19-2022 Reminders - From: Zeny Andujar LPN To: N - Clinical; Sent: 02/19/2022 12:49:40 EDT Show up: 01/19/2032 07:00:00 EDT Subject: colonoscopy recall Due Date/Time: 02/19/2032 07:00:00 EDT Reminder/Recall Patient is due for screening colonoscopy 02/19/2032. Normal [facility] PREG HCG QUALon 02-18-2022 , QUAL Negative Normal NEGATIVE [facility] Comment on above: Performed By: #### P REG #### [facility] [address] [place], [place] [address] Dr. Christopher Rivera Lab Reportson 02-17-2022 Lab Reports [id number]: 127 Normal [facility] Covid-19 PCR (CVDTBH)on SARS-CoV-2 (COVID-19) RNA SUNSHINE+probe Ql (Unsp spec) Not detected Normal NOT DETECTED The [facility] Comment on above: Result Comment: This test is not yet approved or cleared by the [place] FDA. When there are no FDA-approved or cleared tests available, and other criteria are met, FDA can make tests available under an emergency access mechanism called an Emergency Use Authorization (EUA). The EUA for this test is supported by the [place] of Health and Human Service's (HHS's) declaration that circumstances exist to justify the emergency use of in vitro diagnostics for the detection and/or diagnosis of the virus that causes COVID-19. This EUA will remain in effect (meaning this test can be used) for the duration of the COVID-19 declaration justifying emergency of IVDs, unless it is terminated or revoked by FDA (after which the test may no longer be used). When diagnostic testing is negative, the possibility of a false negative should be considered in the context of a patient's recent exposures and the presence of clinical signs and symptoms consistent with SARS-CoV-2. Performed By: #### C VDTBH #### [facility] [address], [place] [address] Dr. Christopher Rivera Consent for Procedure/Surger yon 01-22-2022 Consent for Procedure/Surgery [id number]: 127 Normal [facility] Ambulatory Visit Summaryon 0 01-21-2022 Ambulatory Visit Summary NAHUM ROBERTS :1980 Visit Date:01/21/2022 Ambulatory Visit Instructions Your Diagnosis Bloody diarrhea Tobacco use Your Care Team Attending Physician - GROVER HUNTER, Gregg Craig Primary Care Physician - Josh HUNTER, John Referring Physician - John Moreno MD Procedures Performed Diagnostic laparoscopy (06/09/2016), Diagnostic laparoscopy (05/09/2012), Colonoscopy (05/20/2011), Cholecystectomy, Endometrial ablation, Tubal ligation. Discharge Vitals Heart Rate (Peripheral) 72 Respiratory Rate 16 Blood Pressure 124/66 Height 167.6 cm Height 167.6 cm Weight 61.5 kg Weight 61.5 kg BMI 21.89 Allergies Latex (Hives) cephalexin (Unknown) penicillin (Anaphylaxis) Problems Ongoing - Any problem that you are currently receiving treatment for. Bloody diarrhea Cervical disc disease Dumping syndrome Esophageal reflux Fibrocystic breast disease History of gastritis Left inguinal hernia Low back pain syndrome Shoulder impingement syndrome Tobacco use Uterine leiomyoma Normal [facility] CBC with Auto Differentialon 09-04-2021 Absolute Eos # 0.05 [facility] th Absolute Lymph # 1.20 [facility] Absolute [place] # 0.86 [facility] lth Basophils (Bld) [#/Vol] 0 - 2 % [employer] Basophils Absolute [facility] Eosinophils/100 WBC (Bld) 1 % 0 - 5 % [employer] Hematocrit (Bld) [Volume fraction] 42.8 % 36 - 46 % [employer] Hemoglobin.gastroin testinal spec 1 Ql (Stl) 14.4 g/dL 12.0 - 16.0 g/dL [facility] Interpretation and review of laboratory results Abnormal [employer] Lymphocytes/100 WBC (Bld) 25 % 15 - 40 % [facility] MCH (RBC) [Entitic mass] 31.5 pg 26 - 34 pg [facility] MCHC (RBC) [Mass/Vol] 33.7 g/dL 31 - 37 g/dL [employer] MCV (RBC) [Entitic vol] 93.5 fL 80 - 100 fL [employer] Monocytes/100 WBC (Bld) 18 % High 4 - 8 % [employer] Morphology Vincent (Bld) [Interp] Manual Differential Performed [employer] Platelet distribution width (Bld) [Ratio] 13.3 % 12.1 - 15.2 % [employer] Platelets (Bld) [#/Vol] 227 10*3/uL [facility] RBC (Bld) [#/Vol] 4.57 10*6/uL 4.0 - 5.2 m/uL [facility] Segmented neutrophils/100 WBC (Bld) 56 % 47 - 75 % [facility] Segs Absolute 2.69 [facility] WBC (Bld) [#/Vol] 4.8 10*3/uL [facility] COVID-19, Rapidon 09-04-2021 SARS-CoV-2 (COVID-19) RNA SUNSHINE+probe Ql (Unsp spec) Not detected Not Detected [facility] Comment on above: Rapid NAAT: The specimen is NEGATIVE for SARS-CoV-2, the novel coronavirus associated with COVID-19. The ID NOW COVID-19 assay is designed to detect the virus that causes COVID-19 in patients with signs and symptoms of infection who are suspected of COVID-19. An individual without symptoms of COVID-19 and who is not shedding SARS-CoV-2 virus would expect to have a negative (not detected) result in this assay. Negative results should be treated as presumptive and, if inconsistent with clinical signs and symptoms or necessary for patient management, should be tested with an alternative molecular assay. Negative results do not preclude SARS-CoV-2 infection and should not be used as the sole basis for patient management decisions. Fact sheet for Healthcare Providers: https://www.fda.gov/media/154122/download Fact sheet for Patients: https://www.fda.gov/media/664218/download Methodology: Isothermal Nucleic Acid Amplification Specimen Description .NASOPHARYNGEAL SWAB [facility] Comprehensive Metabolic Pane cristina 09-04-2021 Albumin [Mass/Vol] 4.2 g/dL 3.5 - 5.2 g/dL [facility] ALP (Bld) [Catalytic activity/Vol] 87 U/L 35 - 104 U/L [facility] ALT [Catalytic activity/Vol] 17 U/L 5 - 33 U/L [facility] Anion gap [Moles/Vol] 14 mmol/L 9 - 17 mmol/L [facility] AST [Catalytic activity/Vol] 17 U/L <32 [facility] Bilirubin [Mass/Vol] 0.51 mg/dL 0.30 - 1.20 mg/dL [facility] Calcium [Mass/Vol] 9.0 mg/dL 8.6 - 10. 4 mg/dL [employer] Chloride [Moles/Vol] 105 mmol/L 98 - 107 mmol/L [facility] [employer] CO2 [Moles/Vol] 18 mmol/L Low 20 - 31 mmol/L [facility] Creatinine [Mass/Vol] 0.64 mg/dL 0.50 - 0.90 mg/dL [facility] Free PSA/Total PSA [Mass fraction] 7.4 g/dL 6.4 - 8.3 g/dL [facility] [employer] GFR >60 >60 mL/min [facility] GFR Non- >60 >60 mL/min [facility] GFR/1.73 sq M.predicted MDRD (S/P/Bld) [Vol rate/Area] [facility] Comment on above: Average GFR for 40-4 9 years old: 99 mL/min/1.73sq m Chronic Kidney Disease: <60 mL/min/1.73sq m Kidney failure: <15 mL/min/1.73sq m eGFR calculated using average adult body mass. Additional eGFR calculator available at: http://www.[employer]/multiple_crcl_2012.htm Glucose [Mass/Vol] 105 mg/dL High 70 - 99 mg/dL [facility] Interpretation and review of laboratory results Abnormal [facility] [employer] Potassium [Moles/Vol] 4.0 mmol/L 3.7 - 5.3 mmol/L [facility] Sodium [Moles/Vol] 137 mmol/L 135 - 144 mmol/L [facility] Urea nitrogen (BldV) [Mass/Vol] 9 mg/dL 6 - 20 mg/dL [facility] Urea nitrogen/Creatinine (Bld) [Mass ratio] 14 [facility] D-Dimer, Quantitativeon 08-13 D-Dimer, Quant 0.34 [facility] th Comment on above: When combined with a low clinical probability, a D dimer value of <0.50 mg/L FEU is considered negative for DVT and PE (negative predictive value of 98%, sensitivity of 97%). If this test is not being used to help rule out DVT and PE, then the following reference range should be utilized: 0.00 - 0.59 mg/L FEU. The D-Dimer assay is intended for use as an aid in the diagnosis of venous thromboembolism (DVT and PE) and the results should be interpreted in conjunction with the patient's medical history, clinical presentation, and other findings. Elevated levels of D-dimer activity can be seen in any state of coagulation activation and is not recommended in patients with therapeutic dose anticoagulant therapy for >24 hours, fibrinolytic therapy within the previous 7 days, trauma or surgery within the previous 4 weeks, disseminated malignancies, aortic aneurysm, sepsis, severe infections, pneumonia, severe skin infections, liver cirrhosis, advanced age, coronary disease, diabetes, and . A very low percentage of patients with DVT may yield D-dimer results below the cutoff of 0.5 mg/L FEU. This is known to be more prevalent in patients with distal DVT. [facility] EKG Rhythm Stripon 2 H.Gerardo [facility] Troponinon 09-04-2021 Troponin, High Sensitivity <6 0 - 14 ng/L [facility] Comment on above: High Sensitivity Troponin values cannot be compared with other Troponin methodologies. Patients with high levels of Biotin oral intake (i.e >5mg/day) may have falsely decreased Troponin levels. Samples collected within 8 hours of biotin intake may require additional information for diagnosis. [facility] XR CHEST PORTABLEon 09-05-19 No acute disease. [facility] EXAMINATION: XR CHES T PORTABLE HISTORY: Reason for exam:->shortness of breath, left shoulder pain COMPARISON: 09/03/2021 TECHNIQUE: Portable AP upright FINDINGS: LUNGS: No significant pulmonary parenchymal abnormalities. Hyperinflation VASCULATURE: No increased pulmonary vasculature. PLEURA: No pneumothorax, effusion, or pleural thickening. CARDIAC: No cardiomegaly or cardiac silhouette abnormality. MEDIASTINUM: No visible mass or adenopathy. BONES: No fracture or visible bone lesion. OTHER: Negative. [facility] Ronnie Duong MD - 09/04/2021 EXAMINATION: XR CHEST PORTABLE HISTORY: Reason for exam:->shortness of breath, left shoulder pain COMPARISON: 09/03/2021 TECHNIQUE: Portable AP upright FINDINGS: LUNGS: No significant pulmonary parenchymal abnormalities. Hyperinflation VASCULATURE: No increased pulmonary vasculature. PLEURA: No pneumothorax, effusion, or pleural thickening. CARDIAC: No cardiomegaly or cardiac silhouette abnormality. MEDIASTINUM: No visible mass or adenopathy. BONES: No fracture or visible bone lesion. OTHER: Negative. IMPRESSION: No acute disease. [employer] Work Phone: Radiology Study observation (narrative) [employer] Work Phone: XR CHEST PORTABLEOrdered By: Ronnie Duong on 09-04-2021 [employer] Basic Metabolic Panelon 08-13 Anion gap [Moles/Vol] 13 mmol/L 9 - 17 mmol/L [employer] Calcium [Mass/Vol] 9.1 mg/dL 8.6 - 10. 4 mg/dL [employer] Chloride [Moles/Vol] 103 mmol/L 98 - 107 mmol/L [employer] CO2 [Moles/Vol] 18 mmol/L Low 20 - 31 mmol/L [employer] Creatinine [Mass/Vol] 0.64 mg/dL 0.50 - 0.90 mg/dL [employer] GFR >60 >60 mL/min [employer] GFR Non- >60 >60 mL/min [employer] GFR/1.73 sq M.predicted MDRD (S/P/Bld) [Vol rate/Area] [employer] Comment on above: Average GFR for 40-4 9 years old: 99 mL/min/1.73sq m Chronic Kidney Disease: <60 mL/min/1.73sq m Kidney failure: <15 mL/min/1.73sq m eGFR calculated using average adult body mass. Additional eGFR calculator available at: http://www.[employer].OnShift/multiple_crcl_2011.htm Glucose [Mass/Vol] 100 mg/dL High 70 - 99 mg/dL [employer] Interpretation and review of laboratory results Abnormal [employer] Potassium [Moles/Vol] 4.2 mmol/L 3.7 - 5.3 mmol/L [employer] Sodium [Moles/Vol] 134 mmol/L Low 135 - 144 mmol/L [employer] Urea nitrogen (BldV) [Mass/Vol] 9 mg/dL 6 - 20 mg/dL [employer] Urea nitrogen/Creatinine (Bld) [Mass ratio] 14 [facility] CBC with Auto Differentialon 09-03-2021 Absolute Eos # 0.10 [facility] th Absolute Lymph # 0.90 Low [facility] alth Absolute [place] # 0.70 [facility] lth Basophils (Bld) [#/Vol] 0.00 10*3/uL [facility] Basophils/100 WBC (Bld) 1 % 0 - 2 % [facility] Differential Type YES [facility] ealth Eosinophils/100 WBC (Bld) 1 % 0 - 5 % [facility] Hematocrit (Bld) [Volume fraction] 43.4 % 36 - 46 % [facility] Hemoglobin.gastroin testinal spec 1 Ql (Stl) 14.6 g/dL 12.0 - 16.0 g/dL [facility] Interpretation and review of laboratory results Abnormal [facility] Lymphocytes/100 WBC (Bld) 14 % Low 15 - 40 % [facility] MCH (RBC) [Entitic mass] 31.7 pg 26 - 34 pg [facility] MCHC (RBC) [Mass/Vol] 33.8 g/dL 31 - 37 g/dL [facility] MCV (RBC) [Entitic vol] 93.9 fL 80 - 100 fL [facility] Monocytes/100 WBC (Bld) 11 % High 4 - 8 % [facility] Platelet distribution width (Bld) [Ratio] 13.1 % 12.1 - 15.2 % [facility] Platelets (Bld) [#/Vol] 236 10*3/uL [facility] RBC (Bld) [#/Vol] 4.62 10*6/uL 4.0 - 5.2 m/uL [facility] Segmented neutrophils/100 WBC (Bld) 73 % 47 - 75 % [facility] Segs Absolute 4.70 [facility] h WBC (Bld) [#/Vol] 6.3 10*3/uL [facility] D-Dimer, Quantitativeon 03-2 D-Dimer, Quant 0.34 [facility] Comment on above: When combined with a low clinical probability, a D dimer value of <0.50 mg/L FEU is considered negative for DVT and PE (negative predictive value of 98%, sensitivity of 97%). If this test is not being used to help rule out DVT and PE, then the following reference range should be utilized: 0.00 - 0.59 mg/L FEU. The D-Dimer assay is intended for use as an aid in the diagnosis of venous thromboembolism (DVT and PE) and the results should be interpreted in conjunction with the patient's medical history, clinical presentation, and other findings. Elevated levels of D-dimer activity can be seen in any state of coagulation activation and is not recommended in patients with therapeutic dose anticoagulant therapy for >24 hours, fibrinolytic therapy within the previous 7 days, trauma or surgery within the previous 4 weeks, disseminated malignancies, aortic aneurysm, sepsis, severe infections, pneumonia, severe skin infections, liver cirrhosis, advanced age, coronary disease, diabetes, and . A very low percentage of patients with DVT may yield D-dimer results below the cutoff of 0.5 mg/L FEU. This is known to be more prevalent in patients with distal DVT. [facility] EKG Rhythm Stripon [facility] Microscopic Urinalysison - [facility] Epithelial Cells UA 0 TO 2 /HPF [facility] RBC, UA 2 TO 5 [facility] Troponinon 09-03-2021 Troponin, High Sensitivity <6 0 - 14 ng/L [facility] Comment on above: High Sensitivity Troponin values cannot be compared with other Troponin methodologies. Patients with high levels of Biotin oral intake (i.e >5mg/day) may have falsely decreased Troponin levels. Samples collected within 8 hours of biotin intake may require additional information for diagnosis. [facility] Urinalysison 09-03-2021 Bilirubin Urine Negative NEGATIVE [facility] lth Color, UA Yellow Yellow [facility] Glucose, Ur Negative NEGATIVE [facility] Interpretation and review of laboratory results Abnormal [facility] Ketones Ql (U) MODERATE Abnormal NEGATIVE [facility] Leukocyte esterase Test strip Ql (U) Negative NEGATIVE [facility] Nitrite, Urine Negative NEGATIVE [facility] pH, UA 5.0 [facility] Protein, UA Negative NEGATIVE [facility] Specific [place], UA 1.025 [facility] Turbidity UA Clear Clear [facility] Urinalysis Comments [facility] Urine Hgb 2+ Abnormal NEGATIVE [facility] Urobilinogen, Urine Normal Normal [facility] XR CHEST PORTABLEon 09-04-19 22 Hyperinflation, clear lungs [facility] CONSOLIDATED EXAMINATION: XR CHES T PORTABLE HISTORY: Reason for exam:->chest pain COMPARISON: 01/10/2018 TECHNIQUE: Portable FINDINGS: LUNGS: No significant pulmonary parenchymal abnormalities. Hyperinflation VASCULATURE: No increased pulmonary vasculature. PLEURA: No pneumothorax, effusion, or pleural thickening. CARDIAC: No cardiomegaly or cardiac silhouette abnormality. MEDIASTINUM: No visible mass or adenopathy. BONES: No fracture or visible bone lesion. OTHER: Negative. [facility] CONSOL[facility] Ronnie Duong MD - 09/03/2021 EXAMINATION: XR CHEST PORTABLE HISTORY: Reason for exam:->chest pain COMPARISON: 01/10/2018 TECHNIQUE: Portable FINDINGS: LUNGS: No significant pulmonary parenchymal abnormalities. Hyperinflation VASCULATURE: No increased pulmonary vasculature. PLEURA: No pneumothorax, effusion, or pleural thickening. CARDIAC: No cardiomegaly or cardiac silhouette abnormality. MEDIASTINUM: No visible mass or adenopathy. BONES: No fracture or visible bone lesion. OTHER: Negative. IMPRESSION: Hyperinflation, clear lungs [employer] Phone: Radiology Study observation (narrative) [employer] Phone: XR CHEST PORTABLEOrdered By: Ronnie Duong on 09-03-[address] [employer] [address] HEAD WO CONTRASTOrdered B y: Joan Diallo on 01-22-2021 No evidence of acute intracranial hemorrhage, hematoma or other structural abnormality. Brain CT is stable compared to January 10, 2018. Intact calvarium and skull base. [employer] Phone: EXAMINATION: CT HEAD WO CONTRAST HISTORY: Is the patient ?->No . Patient states head trauma one day earlier. COMPARISON: January 10, 2018. TECHNIQUE: CT examination of the head without IV contrast. Dose reduction techniques were achieved by using automated exposure control and/or adjustment of mA and/or kV according to patient size and/or use of iterative reconstruction technique. FINDINGS: The extracranial soft tissues appear to be intact. No large scalp hematoma identified. The appearance of the globes and orbital soft tissues is normal. I am seeing intact calvarium and basal skull. No fluid levels in the middle ear mastoid cavities or basal paranasal sinuses. Structures of the craniocervical junction are appropriately configured. Intracranial midline markers are appropriately positioned and configured. There are normal dimensions of the ventricles and cisterns. No evidence of intracranial hemorrhage or hematoma. No focal abnormal density. [employer] Phone: Sourav, pn Incoming Radiant Results From [employer] - 01/22/2021 11:13 AM EDT EXAMINATION: CT HEAD WO CONTRAST HISTORY: Is the patient ?->No . Patient states head trauma one day earlier. COMPARISON: January 10, 2018. TECHNIQUE: CT examination of the head without IV contrast. Dose reduction techniques were achieved by using automated exposure control and/or adjustment of mA and/or kV according to patient size and/or use of iterative reconstruction technique. FINDINGS: The extracranial soft tissues appear to be intact. No large scalp hematoma identified. The appearance of the globes and orbital soft tissues is normal. I am seeing intact calvarium and basal skull. No fluid levels in the middle ear mastoid cavities or basal paranasal sinuses. Structures of the craniocervical junction are appropriately configured. Intracranial midline markers are appropriately positioned and configured. There are normal dimensions of the ventricles and cisterns. No evidence of intracranial hemorrhage or hematoma. No focal abnormal density. IMPRESSION: No evidence of acute intracranial hemorrhage, hematoma or other structural abnormality. Brain CT is stable compared to January 10, 2018. Intact calvarium and skull base. [employer] Phone: [employer] Phone: XR CERVICAL SPINE (4-5 VIEWS )Ordered By: Joan Landrum on 01-22-2021 Minimal degenerative changes, without fracture. [employer] Phone: EXAM: XR CERVICAL SP INE (4-5 VIEWS) HISTORY: S00.93XA 40-year-old female head contusion. COMPARISON: Cervical spine series 12/10/2020. TECHNIQUE: 5 views cervical spine. 6 images. FINDINGS: Minimal age expected degenerative changes in the cervical spine with no fracture or dislocation. Facets and spinous processes are normal. The intervertebral foramina are patent. Lung apices are clear. The odontoid is normal. [employer] Phone: Sourav, pn Incoming Radiant Results From [employer] - 01/22/2021 11:44 AM EDT EXAM: XR CERVICAL SPINE (4-5 VIEWS) HISTORY: S00.93XA 40-year-old female head contusion. COMPARISON: Cervical spine series 12/10/2020. TECHNIQUE: 5 views cervical spine. 6 images. FINDINGS: Minimal age expected degenerative changes in the cervical spine with no fracture or dislocation. Facets and spinous processes are normal. The intervertebral foramina are patent. Lung apices are clear. The odontoid is normal. IMPRESSION: Minimal degenerative changes, without fracture. [employer] Work Phone: [employer] Work Phone: Vital Signs Date Time Vital Sign Value Performing Clinician Jeremiah castaneda 01-21-2022 15:46-0400 Blood Pressure Location Gregg NILL [facility] 01-21-2022 15:46-0400 Diastolic blood pressure 66 mm[Hg] Gregg NILL General Surgery Natasha 01-21-2022 15:46-0400 Heart rate 72 /min Gregg NILL [facility] 01-21-2022 15:46-0400 Respiratory rate 16 /min Gregg NILL [facility] 01-21-2022 15:46-0400 Systolic blood pressure 124 mm[Hg] Gregg NILL General Surgery Natasha 09-04-2021 10:30-0400 Diastolic blood pressure 69 mm[Hg] Alexis Brandon MD Work Phone: [employer] 09-04-2021 10:30-0400 Heart rate 97 /min Alexis Brandon MD Work Phone: [employer] 09-04-2021 10:30-0400 Respiratory rate 22 /min Alexis Brandon MD Work Phone: [employer] 09-04-2021 10:30-0400 SaO2% (BldA) [Mass fraction] 98 % Alexis Brandon MD Work Phone: [employer] 09-04-2021 10:30-0400 Systolic blood pressure 112 mm[Hg] Alexis Brandon MD Work Phone: [employer] 09-04-2021 07:44-0400 Body temperature 98.2 [degF] Alexis Brandon MD Work Phone: [employer] 09-03-2021 17:00-0400 Diastolic blood pressure 74 mm[Hg] Alexis Brandon MD Work Phone: [employer] 09-03-2021 17:00-0400 Heart rate 94 /min Alexis Brandon MD Work Phone: [employer] 09-03-2021 17:00-0400 Respiratory rate 15 /min Alexis Brandon MD Work Phone: [employer] 09-03-2021 17:00-0400 SaO2% (BldA) [Mass fraction] 96 % Alexis Brandon MD Work Phone: [employer] 09-03-2021 17:00-0400 Systolic blood pressure 119 mm[Hg] Alexis Brandon MD Work Phone: [employer] 09-03-2021 15:02-0400 Body height 167.6 cm Alexis Brandon MD Work Phone: [employer] 09-03-2021 15:02-0400 Body mass index (BMI) [Ratio] 20.98 kg/m2 Alexis Brandon MD Work Phone: [employer] 09-03-2021 15:02-0400 Body weight 58.97 kg Alexis Brandon MD Work Phone: [employer] 09-03-2021 15:01-0400 Body temperature 98.1 [degF] Alexis Brandon MD Work Phone: [facility] Encounters Encounter Date Encounter Type Care Provider Facility Start: 09-07-2023 End: 09-08-[address] Start: 09-07-2023 End: 09-07-2023 ambulatory RADIOLOGIST RADIOLOGY [facility] Start: 08-18-2023 End: 08-19-[address] [facility] Start: 07-14-2023 [facility] Start: 05-04-2023 ambulatory JEANETTE CALABRESE Facility :[facility] Start: 05-04-2023 End: 05-04-2023 Subsequent hospital visit by physician Jeanette Calabrese PROJECT [employer]IO ANALYST-HEALTH EDUCATION AIDE Work Phone: [facility] Comment on above: Arrived Start: 04-27-2023 End: 04-30-2023 ambulatory CAROL MCCLELLAND [facility] Start: 03-29-2023 End: 03-30-2023 ambulatory CAROL MCCLELLAND [facility] Start: 03-26-2023 End: 03-29-2023 [facility] Start: 03-04-2023 End: 03-05-2023 ambulatory QUYNH HUGHES [facility] Start: 02-26-2023 End: 02-27-2023 ambulatory JOHN MORENO [facility] Start: 02-26-2023 Encounter for gynecological examination (general) (routine) without abnormal findings JOHN HOY [facility] Start: 09-21-2022 End: 09-22-2022 ambulatory SHELDON BENNETT Facility:[facility] Start: 09-01-2022 End: 09-02-[address] JOHN MORENO . Facility:[facility] Start: 08-26-2022 End: 08-27-[address] JOHN MORENO . Facility:[facility] Start: 02-18-2022 End: 02-19-2022 ambulatory Gregg PICKERING Facility:CD:[id number] Start: 02-17-2022 Encounter for preprocedural laboratory examination DR GREGG PICKERING . [facility] Start: 02-14-2022 End: 02-15-[address] GREGG PICKERING . Facility: Start: 02-14-2022 End: 02-15-2022 Encounter for preprocedural laboratory examination DR GREGG PICKERING . Facility: Start: 01-21-2022 End: 01-22-2022 ambulatory Gregg PICKERING Facility:[facility] Start: 01-21-2022 End: 01-21-2022 Patient encounter procedure Gregg PICKERING General Surgery Nill/Said [facility] Start: 12-25-[address] JOHN MORENO . Facili ty:[facility] Start: 09-04-2021 End: 09-04-2021 Emergency department patient visit Alexis Brandon MD Work Phone: [facility] Comment on above: Shortness of breath (Primary Dx); Moderate persistent asthma with exacerbation; Dehydration; Diarrhea, unspecified type; Exacerbation of Crohn's disease with complication (HCC) Start: 09-03-2021 End: 09-03-2021 Emergency department patient visit Alexis Brandon MD Work Phone: [facility] ED Comment on above: Nausea and vomiting, intractability of vomiting not specified, unspecified vomiting type (Primary Dx); Diarrhea, unspecified type; Shortness of breath Start: 01-22-2021 End: 01-24-2021 Subsequent hospital visit by physician [facility] Cat Scan Room [facility] Radiology Comment on above: Contusion of head, u nspecified part of head, initial encounter Procedures Date Procedure Procedure Detail Performing Clinician Start: 09-04-2021 Ecg routine ecg w/le ast 12 lds w/i&r Alexis Brandon MD Work Phone: Start: 09-04-2021 COVID-19, RAPID Alexis Brandon MD Work Phone: Start: 09-04-2021 Radiologic exam ches t single view Alexis Brandon MD Work Phone: Start: 09-04-2021 Rhythm ecg 1-3 leads w/interpretation & report Unknown Provider Result Start: 09-04-2021 Comprehensive metabo lic panel Alexis Brandon MD Work Phone: Start: 09-03-2021 Urinalysis microscopic only Alexis Brandon MD Work Phone: Start: 09-03-2021 Urnls dip stick/tabl et rgnt auto w/o microscopy Alexis Brandon MD Work Phone: Start: 09-03-2021 Radiologic exam ches t single view Alexis Brandon MD Work Phone: Start: 09-03-2021 Basic metabolic pane l calcium total Alexis Brandon MD Work Phone: Start: 09-03-2021 End: 09-03-2021 Ecg routine ecg w/least 12 lds w/i&r Alexis Brandon MD Work Phone: Start: 01-22-2021 Radex spine cervical 4 or 5 views Joan Jonesum PROJECT PORTFOLIO ANALYST - CANCER GENETICS ASSISTANT Work Phone: Start: 01-22-2021 Ct head/brain w/o co ntrast material Joan Diallo PROJECT PORTFOLIO ANALYST - CANCER GENETICS ASSISTANT Work Phone: Start: 06-09-2016 Diagnostic laparoscopy Gregg PICKERING Start: 05-09-2012 Diagnostic laparoscopy Gregg PICKERING Start: 05-20-2011 Colonoscopy Gregg PUCKETT LL Cholecystectomy Gregg GARZAL Endometrial ablation Gregg GARZAL Ligation of fallopian tube M dangelo GROVER Plan of Treatment Date Care Activity Detail Author Start: 03-26-2024 Screening for malignant neoplasm of breast MAMMOGRAM SCREENING DISCUSSION [facility] Start: 05-12-2023 End: 05-12-2023 Patient encounter procedure [facility] Mammography at [facility] Start: 02-12-2023 Influenza vaccination INFLUENZA VACC INE (#1) [facility] Start: 02-12-2021 Influenza vaccination Flu vaccine (# 1) [facility] Start: 2018 Lipid panel [facility] Start: 2008 Screening for malignant neoplasm of cervix [facility] Start: 11-11-1999 Screening for malignant neoplasm of cervix [facility] Start: 1997 DTaP/Tdap/Td vaccine (2 - Tdap) DTaP/Tdap/Td vaccine (2 - Tdap) [facility] Start: 1997 Third diphtheria, tetanus and acellular pertussis (DTaP) vaccination TDAP (ADULT) [facility] Start: 1993 HIV screening [facility] Start: 1990 COVID-19 Vaccine (1) COVID-19 Vaccin e (1) [facility] Work Phone: Start: 1990 Depression Screen Depression Screen [facility] Start: 1984 Pneumococcal 0-64 years Vaccine (1 of 2 - PPSV23) Pneumococcal 0-64 years Vaccine (1 of 2 - PPSV23) [facility] Start: 11-11-1983 COVID-19 Vaccine (1) COVID-19 Vaccin e (1) [facility] Start: 05-13-1979 COVID-19 VACCINE (#1) COVID-19 VACCI NE (#1) [facility] Start: 1978 Hepatitis C screening [facility] Start: 1978 Tetanus vaccination TETANUS [facility] EKG 12 Lead EKG 12 Lead ECG STAT 09/03/2021 3:11 PM EDT [facility] Work Phone: EKG 12 Lead EKG 12 Lead ECG STAT 09/04/2021 9:33 AM EDT [facility] Work Phone: End: 05-04-2023 MG Breast Views [facility] Work Phone: Comment on above: 1 Occurrences starti ng 05/04/2023 until 05/04/2023 Payers Date Payer Category Payer Unknown ANTHEM ANTHEM HM O PPO POS [id number] 2021-Present [address] [place] [address] [id number] 1978 Unknown [id number] 1978 Unknown [id number] [id number] 1978 Unknown [id number] [id number] 1978 Unknown [id number] [id number] 1978 Unknown [id number] [id number] 1978 Unknown [id number] 2.16.840.1.300483.3.579.2.593 1978 Unknown [id number] [id number] 1978 Unknown [id number] 2.16.840.1.641202.3.579.2.593 1978 Unknown [id number] 2.16.840.1.263919.3.579.2.173 1978 Unknown [id number] 2.16.840.1.667405.3.579.2.173 1978 Unknown [id number] 2.16.840.1.975471.3.579.2.173 1978 Unknown [id number] 2.16.840.1.432810.3.579.2.174 1978 Unknown [id number] 2.16.840.1.534535.3.579.2.174 1978 Unknown [id number] 2.16.840.1.097119.3.579.2.174 1978 Unknown [id number] [id number] 1959 Unknown [id number] [id number] 1959 Unknown [id number] Social History Date Type Detail Facility Start: 10-13-2012 End: 01-24-2021 Tobacco smoking status NHIS Current every day smoker [facility] Phone: History of tobacco use Cigarette Smoker [facility] Start: 10-13-2012 End: 01-24-2021 Cigarettes smoked current (pack per day) - Reported [facility] Phone: Start: 10-13-2012 End: 01-24-2021 Tobacco use and exposure Never used [employer] Start: 01-24-2021 End: 09-04-2021 Alcohol intake Current non-drinker of alcohol (finding) [facility] Phone: Start: 1980 Sex Assigned At Not on file [facility] [email or web address] Phone: Start: 08-24-2021 End: 09-04-2021 Exposure to SARS-CoV-2 (event) Not sure [facility] Phone: Start: 01-21-2022 Tobacco smoking status Heavy t obacco smoker (finding) [facility] Tobacco smoking status Never Gener al Surgery [facility] Sex Assigned At Female [facility] Functional Status Date Assessment Result Facility 01-21-2022 Functional Status N/A [facility] Clinical Notes 01-22-2022 to 10-05-2023 Note Date & Type Note Facility 10-05-2023 Note I called pt and left a voice mail message re: her missed appt with Dr. Gifford on 10/01/23. I left my phone # and asked her to call me back if she'd like to re-schedule that appt. [facility] 07-14-2023 Note Attestation signed by Linda Pastrana MD at 07/16/2023 2:39 PM By using the attestations below, the signing clinician agrees that I have read and verify that the documentation has been personally reviewed by me and ensure that the documentation accurately reflects the encounter. GC: I personally saw this patient on the day of the encounter, performed the nolasco portion(s) of the service and participated in the management and confirm the resident's documentation. Please note there may be an additional personal documentation from me. Linda Pastrana MD [employer] Sales Engineer [facility]:.[phone] HEMATOLOGY / ONCOLOGY [facility] Initial Consultation Note Patient Name: Nahum Roberts Date of : 1980 Encounter Date: 07/14/2023 Patient Care Team: John Moreno MD as PCP - General Linda Pastrana MD as Consulting Physician (Hematology and Oncology) Reason for Consultation: Abnormal findings on mammography History of Present Illness: Nahum Roberts is a 42 y.o. woman who is being evaluated in consultation today in the Hematology and Medical Oncology clinic for abnormal findings on mammography. They are accompanied by their boyfriend for initial consultation. She has a past medical history notable for iron-deficiency anemia, crohn's disease, rheumatoid arthritis, tobacco use, PCOS, dumping syndrome, asthma, and history of lumpectomy and multiple biopsies for abnormal mammogram results with benign results. Currently, she says that she is at her baseline health and has not been experiencing any new health problems. She has chronic diarrhea related to dumping syndrome but says her overall weight has remained stable. She does not have any other concerns at this time. Past Medical History: Diagnosis Date Anemia Asthma Crohn's disease (CMS/[facility]) Dumping syndrome PCOS (polycystic ovarian syndrome) Rheumatoid arthritis (CMS/HCC) Tobacco use Past Surgical History: Procedure Laterality Date BREAST LUMPECTOMY Left ENDOMETRIAL ABLATION GALLBLADDER SURGERY N/A TUBAL LIGATION N/A Family History Problem Relation Name Age of Onset Colon cancer Maternal Grandfather Colon cancer Paternal Grandfather Social History Socioeconomic History Marital status: Single Spouse name: Not on file Number of children: Not on file Years of education: Not on file Highest education level: Not on file Occupational History Not on file Tobacco Use Smoking status: Every Day Packs/day: 0.50 Years: 20.00 Additional pack years: 0.00 Total pack years: 10.00 Types: Cigarettes Smokeless tobacco: Never Vaping Use Vaping Use: Never used Substance and Sexual Activity Alcohol use: Defer Drug use: Yes Types: Marijuana Sexual activity: Yes Other Topics Concern Not on file Social History Narrative Not on file Social Determinants of Health Financial Resource Strain: Not on file Food Insecurity: Not on file Transportation Needs: Not on file Physical Activity: Not on file Stress: Not on file Social Connections: Not on file Intimate Partner Violence: Not on file (07/14/2023) Housing Stability: Not on file No current outpatient medications on file. Allergies Allergen Reactions Desonide Other reaction(s): Other (See Comments) Unknown Ibuprofen Other reaction(s): Other (See Comments) Rectal bleed Latex Other reaction(s): Hives, Other (See Comments) Burning Penicillins Anaphylaxis and Rash Other reaction(s): other Prednisone Swelling Adhesive Other reaction(s): other Morphine Other reaction(s): Other (See Comments) Labored breathing, chest tightening. Cephalexin Nausea And Vomiting Other reaction(s): Unknown Review of Systems: Review of Systems Constitutional: Positive for fatigue. Negative for activity change, appetite change, chills, diaphoresis, fever and unexpected weight change. HENT: Negative. Eyes: Negative. Respiratory: Negative. Cardiovascular: Negative. Gastrointestinal: Positive for diarrhea. Negative for abdominal distention, abdominal pain, anal bleeding, blood in stool, constipation, nausea, rectal pain and vomiting. Endocrine: Negative. Genitourinary: Negative. Musculoskeletal: Negative. Skin: Negative. Neurological: Negative. Hematological: Negative. Negative for adenopathy. Does not bruise/bleed easily. Psychiatric/Behavioral: The patient is nervous/anxious. Objective: BP 120/63 (BP Location: Left arm, Patient Position: Sitting, BP Cuff Size: Adult) Pulse 81 Temp 36.1 ???C (96.9 ???F) (Oral) Wt 57.9 kg (127 lb 9.6 oz) LMP (LMP Unknown) SpO2 100% ECOG Performance Status: 1 - Symptomatic but completely ambulatory Physical Examination: General: Well-appearing, thin, in no a (more content not included)... [facility] 02-18-2022 Note OPERATIVE NOTE OPERATION DATE: 02/18/2022 PREOPERATIVE DIAGNOSIS: Epigastric abdominal pain, nausea, vomiting, bowel changes. POSTOPERATIVE DIAGNOSIS: Bile reflux, antral gastritis and normal colon to terminal ileum. PROCEDURE: EGD with antral biopsy, colonoscopy to terminal ileum. SURGEON: Gregg Pickering M.D. ANESTHESIA: Monitored anesthesia care. ESTIMATED BLOOD LOSS: Less than 1 mL. INDICATIONS AND CONSENT: Patient is a 41-year-old female with a long history of abdominal complaints with intermittent nausea, vomiting and loose stools. Recently had episodes of bloody diarrhea, as well as worsening epigastric and mid abdominal pain. Indications, risks, benefits, alternatives of proceeding with EGD and colonoscopy were explained extensively to the patient, including the risks of bleeding, aspiration, esophageal/gastric/duodenal or colonic perforation or anesthetic complications. All of her questions were answered. Informed consent was obtained. PROCEDURE: Patient brought to the operating room, placed in the left lateral decubitus position. Monitored anesthesia care was provided. A bite block was placed in the patient's mouth. Scope was inserted into the oropharynx. Under direct visualization, it was advanced into the esophagus, past the cricopharyngeus, down to the stomach. The stomach was insufflated with air. The pylorus was traversed down to the descending portion of the duodenum. There was no evidence of duodenitis or ulceration. There was no scarring within the pyloric channel. The scope was pulled back into the stomach. There was a moderate amount of bile throughout the stomach, as well as evidence of gastritis. Biopsy of the antrum was obtained with good hemostasis. There was no evidence of ulceration or bleeding. The GE junction was noted at approximately 38 cm. There was no distal esophagitis or Mata's changes. Remainder of the esophagus was unremarkable. The scope was then withdrawn. The patient was then positioned for colonoscopy. Rectal exam was performed which showed no masses or blood. Scope was inserted into the anal canal. Under direct visualization was advanced. There was noted to be a good prep but with some dark liquid stool with some particulate matter. It was able to be partially irrigated clear. The scope was advanced to the cecum where cecal markings were clearly identified. Picture of the appendiceal orifice and ileocecal valve were obtained. Upon withdrawal of the scope, mucosal surfaces were carefully examined. There were no mass lesions or polyps. No inflammatory changes or ulcerations. No significant diverticulosis. There was noted to be some spasm of the sigmoid colon. The scope was retroflexed in the anal canal. There were noted to be some prominent rectal veins. No ulcerations. No evidence of old or new blood. No significant hemorrhoidal disease. Scope was then withdrawn. Patient tolerated procedure well, was sent to recovery room in good condition. CC: John Moreno M.D. [facility] 01-22-2022 Note Chief Complaint consultation for bloody diarrhea HPI Staff 41 year old female presents on consultation from Dr. Moreno for bloody diarrhea. Reports long standing history of abdominal pain, nausea, vomiting, bloating, intermittent diarrhea and frequent change in weight by 10#. Denies rectal pain. 12/17 was prescribed Cipro 500mg BID x 10 days and Flagyl 500mg TID x 10 days, without change in symptoms. Last colonoscopy completed 05/2011- normal. Never had EGD in the past. Reports both maternal and paternal grandparents with colon cancer. She is unsure age of diagnoses for any of them. History of Present Illness 41 yo female with h/o cervical disc disease, with long h/o abdominal complaints, presents for bloody diarrhea; began 1 month ago, treated with cipro and flagyl for 10 days; no fevers; mild lower abdominal pain, no h/o diverticular disease; long h/o intermittent diffuse abdominal pain, ache and crampy; nausea with bilious emesis, frequent loose stools at time of eating, any foods; has been going on since cholecystectomy in 2006; bloody diarrhea was new, denies hemorrhoid prolapse or rectal pain; no blood in stools currently; last colonoscopy 2010, wnl; no previous EGD; abdominal operations significant for cholecystectomy, diagnostic laparoscopy x2, tubal ligation; denies asa or NSAID use, no SBE prophylaxis; reports fmhx of colon cancer in all four grandparents, unsure of age at diagnosis, no fmhx of IBD. smokes cigarettes and marijuana daily. Review of Systems PHQ Score Initial Depression Screen Score: 0 ROS - Provider Constitutional: no fever, no sweats, no weight loss. Eyes: no glasses, no blurred vision, no visual loss. ENMT: no dentures, no hoarseness, no swallowing difficulties, no hearing loss, no ear infection(s), no nose bleeds. Cardiovascular: normal blood pressure, no chest pain, regular heartbeat, no heart murmur. Respiratory: no shortness of breath, no cough, no asthma, no wheezing. Gastrointestinal: yes nausea, yes vomiting, yes diarrhea, no constipation, yes blood in stool, no change in bowel habits, yes abdominal pain, no hepatitis. Genitourinary: no kidney stones, no urine infection, no dysuria. Musculoskeletal: no pain, no weakness. Skin: no changing moles, no rash, no skin lumps. Neurologic: no seizures, no epilepsy, no headache. Psychiatric: no emotional or psychiatric problem. Heme/Lymph: no bleeding problems, no anemia, no blood clots, no transfusions. Allergy/Immunologic: no swollen lymph nodes/glands, no IV drug abuse. Other: Additional ROS info: Except as noted in the above Review of Systems and in the History of Present Illness, all other systems have been reviewed and are negative or noncontributory. Physical Exam Vitals & Measurements HR: 72(Peripheral) RR: 16 BP: 124/66 HT: 167.6 cm HT: 167.6 cm WT: 61.5 kg WT: 61.5 kg BMI: 21.89 HEENT: normal conjunctiva, sclera clear, no scleral icterus, EOM intact, PERRLA, oral mucosa moist without lesions. Neck: trachea midline, no mass, symmetric, no thyromegaly or nodules, no adenopathy Respiratory: lungs CTA, respirations non labored. Cardiovascular: regular rate and rhythm, no murmur, no pedal edema or varicosities. Gastrointestinal: soft, non distended, no tenderness, no masses, no palpable hernias, diastasis recti no, no hepatosplenomegaly; normal bs Lymphatic: no cervical adenopathy, Musculoskeletal: normal gait, digits and nails without infection, nodes, cyanosis, clubbing. Skin: no rashes, no lesions, no ulcers, no subcutaneous nodules, induration. Psychiatric/Neuro: oriented to time, place, person, judgement normal, affect appropriate for age, insight intact, no focal deficits. Tests: , review of old records completed, Discussed surgical options, risks, and possible complications with patient. Assessment/Plan 1. Bloody diarrhea (R19.7: Diarrhea, unspecified) plan EGD and colonoscopy under anesthesia for further evaluation, informed consent obtained. 2. Epigastric pain (R10.13: Epigastric pain) see # 1 3. Nausea and vomiting (R11.2: Nausea with vomiting, unspecified) see # 1 4. Tobacco use (Z72.0: Tobacco use) We strongly recommend to quit tobacco use. Cigarette smoking harms nearly every organ of the body, causes many diseases, and reduces the health of smokers in general. Quitting smoking lowers your risk for smoking-related diseases and can add years to your life. We encourage you to visit www.smokefree.gov access to helpful resources including free telephone support. If you decide on prescription treatment to help you quit, your family doctor would be happy to provide these. Follow-up No qualifying data available Problem List/Past Medical History Ongoing Bloody diarrhea BMI 21.0-21.9, adult Cervical disc disease Dumping syndrome Epigastric pain Esophageal reflux Fibrocystic breast disease History of gastritis Left inguinal hernia Low back pain syndrome Nausea and vomiting Shoulder impingement syndrom (more content not included)... [facility] Comment on above: Result Comment: Elec tronically Signed By: GROVER HUNTER, Gregg Sidhu\Date and Time Signed: 01/22/22 08:44 EDT Evaluation + Plan note No data available for this section General Surgery [facility] Evaluation note Diagnosis Contusion of head, unspecified part of head, initial encounter documented in this encounter [facility] Phone: evaluation note* Diagnosis Contusion of head, unspecified part of head, initial encounter documented in this encounter [facility] Phone: evaluation note* Diagnosis Nausea and vomiting, intractability of vomiting not specified, unspecified vomiting type- Primary Diarrhea, unspecified type Shortness of breath documented in this encounter [facility] Phone: evaluation note* Diagnosis Shortness of breath- Primary Moderate persistent asthma with exacerbation Unspecified asthma, with exacerbation Dehydration Diarrhea, unspecified type Exacerbation of Crohn's disease with complication (HCC) documented in this encounter [facility] Phone: evaluation note* Diagnosis Abnormal finding on breast imaging Other (abnormal) findings on radiological examination of breast [facility] Attachments The following attachments cannot be sent through Care Everywhere. * Clear Liquid Diet: General Info (Nigerian) documented in [facility] Phone: Hospital Discharge instructions* Attachments The following attachments cannot be sent through Care Everywhere. * Dehydration (Nigerian) * Diarrhea (Nigerian) documented in [facility] Phone: Hospital Discharge instructions No data available for this section General Surgery Carpenter Progress note No data available for this section General Surgery [facility] [employer] Advance Directives No Advanced Directives Records FoundDocuments on File Type Date Recorded Patient Nurse Plastics Expl anation ACP-Advance Directive ACP-Power of Trash Truck Driver Documents on File Type Date Recorded Patient Nurse Plastics Expl anation ACP-Advance Directive ACP-Power of Trash Truck Driver Reason for Referral Status Reason Specialty Diagnoses / Procedures Referre d By Contact Referred To Contact Closed Radiology Diagnoses Contusion of head, unspecified part of head, initial encounter Procedures CT HEAD WO CONTRAST Joan Landrum, PROJECT PORTFOLIO ANALYST - CANCER GENETICS ASSISTANT [address] [facility] [address] [place] [address] Specialty Diagnoses / Procedures Referred By Mable t Referred To Contact Diagnoses Abnormal finding on breast imaging Procedures BREAST IMAGING SECOND OPINION READING Jeanette Calabrese, PROJECT PORTFOLIO ANALYST-HEALTH EDUCATION AIDE [address] [facility] [address] [place] [address] Referral ID Status Reason Start Date Expiration Date V isits Requested Visits Authorized [id number] New Request 05/04/2023 05/28/2024 1 1 Summary Purpose Family History No Family History Records FoundNo Family History Records FoundNo Family History Records FoundNo Family History Records FoundNo Family History Records FoundNo Family History Records FoundNo Family History Records Found Additional Source Comments Reason for Visit (unrecogniz ed section and content) Status Reason Specialty Diagnoses / Procedures Referre d By Contact Referred To Contact Closed Radiology Diagnoses Contusion of head, unspecified part of head, initial encounter Procedures CT HEAD WO CONTRAST Joan Landrum APRN - CANCER GENETICS ASSISTANT [address] [place] [address] [facility] [address] [place] [address] Status Reason Specialty Diagnoses / Procedures Referre d By Contact Referred To Contact Open Radiology Diagnoses Contusion of unspecified part of head, initial encounter Procedures XR CERVICAL SPINE (4-5 VIEWS) [id number] Joan Landrum APRN - CANCER GENETICS ASSISTANT [address] [place] [address] [facility]iology [address] [place] [address] Reason Comments Abdominal Pain pt reports woke up a round 3 am with chest pain, shortness of breath, nausea vomitting and diarrhea. Shortness of Breath Nausea Reason Comments Shortness of Breath increased sob Specialty Diagnoses / Procedures Referred By Mable t Referred To Contact Diagnoses Abnormal finding on breast imaging Procedures BREAST IMAGING SECOND OPINION READING Jeanette Calabrese, PROJECT PORTFOLIO ANALYST-HEALTH EDUCATION AIDE [address] [facility] [address] [place] [address] Referral ID Status Reason Start Date Expiration Date V isits Requested Visits Authorized [id number] New Request 05/04/2023 05/28/2024 1 1 Scheduled Active and Recently Administ ered Medications (unrecognized section and content) Medication Order 09/01/2021 09/02/2021 09/03/2021 0.9 % sodium chloride bolus (COMPLETED) 1,000 mL (16.9 mL/kg), IntraVENous, at 983.6 mL/hr, Administer over 61 Minutes, ONCE, On Wed09/03/21 at 1630, For 1 dose 1635 (New Bag - Prov ider: Amalia Perez, RN)1737 (Stopped - Provider: Anay Fernández RN) ipratropium-albuterol (DUONEB) nebulizer solution 1 ampule (COMPLETED) 1 ampule, Inhalation, ONCE, 1 dose, On Wed09/03/21 at 1530, Initiate RT Bronchodilator Protocol: No 1520 (Given - Provid er: Joya Amaral RCP) ketorolac (TORADOL) injection 30 mg (COMPLETED) Ketorolac is contraindicated in patients with advanced renal impairment and in patients at risk of renal failure due to volume depletion. For 65 years of age and older OR weight less than 50 kg, use 15 mg IV every 6 hours; MAX dose: 60 mg/day. Dose greater than 30 mg must be administered via intramuscular route. Do not administer for more than 5 days., 30 mg, IntraVENous, ONCE, 1 dose, On Wed09/03/21 at 1915, Do not administer for more than 5 days. 191 (Given - Provid er: Chavez Sanches RN) ondansetron (ZOFRAN) injection 4 mg (COMPLETED) 4 mg, IntraVENous, ONCE, 1 dose, On Wed09/03/21 at 1645 1640 (Given - Provid er: Amalia Perez RN) Scheduled Medication Order 09/02/2021 09/03/2021 09/04/2021 0.9 % sodium chloride bolus (COMPLETED) 1,000 mL (16.9 mL/kg), IntraVENous, at 1,000 mL/hr, Administer over 1 Hours, ONCE, On Sneha 09/04/21 at 0800, For 1 dose, For IV Hydration 0812 (New Bag - Prov ider: Neelima Ruiz RN)0912 (Stopped - Provider: Neelima Ruiz RN) ketorolac (TORADOL) injection 30 mg (COMPLETED) Ketorolac is contraindicated in patients with advanced renal impairment and in patients at risk of renal failure due to volume depletion. For 65 years of age and older OR weight less than 50 kg, use 15 mg IV every 6 hours; MAX dose: 60 mg/day. Dose greater than 30 mg must be administered via intramuscular route. Do not administer for more than 5 days., 30 mg, IntraVENous, ONCE, 1 dose, On Sneha 09/04/21 at 0800, Do not administer for more than 5 days. 0813 (Given - Provid er: Neelima Ruiz RN) LORazepam (ATIVAN) injection 1 mg (COMPLETED) 1 mg, IntraVENous, ONCE, 1 dose, On Sneha 09/04/21 at 0815 0818 (Given - Provid er: Neelima Ruiz RN) ondansetron (ZOFRAN) injection 4 mg (COMPLETED) 4 mg, IntraVENous, ONCE, 1 dose, On Sneha 09/04/21 at 0815 0815 (Given - Provid er: Neelima Ruiz RN) Continuous Medication Order 09/02/2021 09/03/2021 09/04/2021 lactated ringers infusion IntraVENous, at 1,000 mL/hr, CONTINUOUS, Starting on Sneha 09/04/21 at 0930, For 1 hour 0927 (New Bag - Prov ider: Neelima Ruiz RN)1029 (Stopped - Provider: Neelima Ruiz RN) Care Teams (unrecognized sec tion and content) Track Watchman Relationship Specialty Start Date End Date John Moreno MD [address] [place] [address] PCP - General 10/13/12 Track Watchman Relationship Specialty Start Date End Date John Moreno MD [address] [place] [address] PCP - General 10/13/12 Track Watchman Relationship Specialty Start Date End Date John Moreno MD [address] [place] [address] PCP - General Family Medicine 04/30/23 Quynh Hughes CNM [address] [facility] [address] [place] [address] Certified Nurse Special Events Director 04/30/23 Ordered Prescriptions (unrec ognized section and content) Prescription Sig Dispensed Refills Start Date End Da te ondansetron (ZOFRAN ODT) 4 MG disintegrating tablet Take 1 tablet by mouth every 8 hours as needed for Nausea or Vomiting 10 tablet 0 09/04/2021 INFORMATION SOURCE (unrecogn ized section and content) DATE CREATED AUTHOR 02/24/[address] [facility] DATE CREATED AUTHOR AUTHOR'S ORGANIZ ATION 09/27/2022 [facility] DATE CREATED AUTHOR AUTHOR'S ORGANIZ ATION 03/31/2023 [facility] DATE CREATED AUTHOR AUTHOR'S ORGANIZ ATION 05/01/2023 [facility] DATE CREATED AUTHOR AUTHOR'S ORGANIZ ATION 05/06/2023 [facility] DATE CREATED AUTHOR AUTHOR'S ORGANIZ ATION 07/04/2023 [facility] DATE CREATED AUTHOR AUTHOR'S ORGANIZ ATION 10/06/2023 [facility] FOR RECORDS PERTAINING TO PATIENTS WHO ARE OR HAVE BEEN ENROLLED IN A CHEMICAL DEPENDENCY/SUBSTANCEABUSE PROGRAM, SOME INFORMATION MAY BE OMITTED. This clinical summary was aggregated from multiple sources. Caution should be exercised in using it in the provision of clinical care. This summary normalizes information from multiple sources, and as a consequence, information in this document may materially change the coding, format and clinical context of patient data. In addition, data may be omitted in some cases. CLINICAL DECISIONS SHOULD BE BASED ON THE PRIMARY CLINICAL RECORDS. [employer] provides no warranty or guarantee of the accuracy or completeness of information in this document.
[2023-10-28 07:35] LABS: Basophils Percent Auto 0.4 % (0.2-2.0); Eosinophils Absolute Auto 0.1 10^3/uL (0.0-0.7); Eosinophils Percent Auto 1.3 % (0.9-7.0); Hematocrit 41.4 % (36.0-48.0); Immature Granulocytes Abs Auto 0.02 10^3/uL (0.00-0.03); Immature Granulocytes Pct Auto 0.3 % (0.0-0.5); Lymphocytes Absolute Auto 2.7 10^3/uL (1.2-3.8); Lymphocytes Percent Auto 39.1 % (20.5-60.0); Mean Corpuscular HGB Conc 33.8 g/dL (29.9-35.2); Mean Corpuscular Hemoglobin 32.3 pg (26.7-34.0); Mean Corpuscular Volume 95.6 fL (81.0-99.0); Mean Platelet Volume 9.2 fL (9.5-13.5); Monocytes Absolute Auto 0.7 10^3/uL (0.3-0.8); Monocytes Percent Auto 9.3 % (1.7-12.0); Neutrophils Absolute Auto 3.5 10^3/uL (1.4-6.5); Neutrophils Percent Auto 49.6 % (43.0-75.0); Platelet Count 245 10^3/uL (150-450); Red Blood Count 4.33 10^6/uL (4.20-5.40); Red Cell Distribution Width 12.5 % (11.0-15.0)
[2023-10-28 07:59] LABS: Estimated Average Glucose 100 mg/dL; Glycohemoglobin A1C 5.1 % (4.5-6.2)
[2023-10-28 08:14] LABS: Alanine Aminotransferase 22 U/L (14-59); Albumin Globulin Ratio 1.1; Albumin Level 3.7 g/dL (3.4-5.0); Alkaline Phosphatase 67 U/L (46-116); Anion Gap 12.3; Aspartate Amino Transferase 12 U/L (15-37); BUN Creatinine Ratio 12.2; Bilirubin Total 0.4 mg/dL (0.2-1.0); Calcium 9.1 mg/dL (8.5-10.1); Carbon Dioxide 26.5 mmol/L (21.0-32.0); Chloride 105 mmol/L (98-107); Chol HDL Ratio 2.8; Cholesterol 200 mg/dL (<=200); Estimated GFR (African America >60 (>=60); Estimated GFR (Non-African Ame >60 (>=60); Free T3 2.65 pg/mL (2.18-3.98); Globulin 3.4 g/dL; Glucose 101 mg/dL (74-106); HDL Cholesterol 71 mg/dL (40-60); Potassium 3.8 mmol/L (3.5-5.1); Sodium 140 mmol/L (136-145); Thyroid Stimulating Hormone 0.821 uIU/mL (0.358-3.740); Total Protein 7.1 g/dL (6.4-8.2); Triglycerides 44 mg/dL (<=150); VLDL CHOLESTEROL 8.8 mg/dL
[2023-10-30 06:09] LABS: QuantiFERON-TB Gold Plus Negative (Negative)
== END 2023-10-28 07:04 | disposition home or self-care (01) ==
PROVIDERS: PCP Family Medicine; Visit Provider Family Medicine
DX: Z00.00 Encounter for general adult medical examination without abnormal findings (principal)
CPT/HCPCS: 36415; 80053; 80061; 82306; 83036; 83540; 84436; 84443; 84481; 85025; 86480

== ENCOUNTER 2024-08-21 09:13 | Outpatient (OUT) | payer BC, SELFPAY ==
[2024-08-21 09:38] LABS: Basophils Percent Auto 0.5 % (0.2-2.0); Eosinophils Absolute Auto 0.1 10^3/uL (0.0-0.7); Eosinophils Percent Auto 1.1 % (0.9-7.0); Hematocrit 42.3 % (36.0-48.0); Hemoglobin 14.3 g/dL (12.0-16.0); Immature Granulocytes Abs Auto 0.01 10^3/uL (0.00-0.03); Immature Granulocytes Pct Auto 0.2 % (0.0-0.5); Lymphocytes Absolute Auto 2.9 10^3/uL (1.2-3.8); Lymphocytes Percent Auto 45.5 % (20.5-60.0); Mean Corpuscular HGB Conc 33.8 g/dL (29.9-35.2); Mean Corpuscular Hemoglobin 32.5 pg (26.7-34.0); Mean Corpuscular Volume 96.1 fL (81.0-99.0); Monocytes Absolute Auto 0.5 10^3/uL (0.3-0.8); Monocytes Percent Auto 7.6 % (1.7-12.0); Neutrophils Absolute Auto 2.9 10^3/uL (1.4-6.5); Neutrophils Percent Auto 45.1 % (43.0-75.0); Platelet Count 248 10^3/uL (150-450); Red Cell Distribution Width 12.4 % (11.0-15.0); White Blood Count 6.5 10^3/uL (4.0-11.0)
[2024-08-21 10:30] LABS: Estimated Average Glucose 103 mg/dL; Glycohemoglobin A1C 5.2 % (4.5-6.2)
[2024-08-21 10:43] LABS: Alanine Aminotransferase 14 U/L (14-59); Albumin Globulin Ratio 1.2; Albumin Level 3.8 g/dL (3.4-5.0); Alkaline Phosphatase 79 U/L (46-116); Anion Gap 13.6; Aspartate Amino Transferase 11 U/L (15-37); Bilirubin Total 0.6 mg/dL (0.2-1.0); Calcium 8.8 mg/dL (8.5-10.1); Carbon Dioxide 27.1 mmol/L (21.0-32.0); Chloride 104 mmol/L (98-107); Chol HDL Ratio 2.8; Cholesterol 193 mg/dL (<=200); Estimated GFR (African America >60 (>=60 mL/min/1.73m^2); Estimated GFR (Non-African Ame >60 (>=60 mL/min/1.73m^2); Free T3 2.64 pg/mL (2.18-3.98); Globulin 3.3 g/dL; Glucose 104 mg/dL (74-106); HDL Cholesterol 70 mg/dL (40-60); Potassium 3.7 mmol/L (3.5-5.1); Sodium 141 mmol/L (136-145); Thyroid Stimulating Hormone 0.904 uIU/mL (0.358-3.740); Total Protein 7.1 g/dL (6.4-8.2); Triglycerides 67 mg/dL (<=150); VLDL CHOLESTEROL 13.4 mg/dL
[2024-08-22 04:09] LABS: Insulin 9.4 uIU/mL (2.6-24.9); Vitamin B12 605 pg/mL (232-1245)
== END 2024-08-21 09:14 | disposition home or self-care (01) ==
LOC: LAB 09:16
PROVIDERS: PCP Family Medicine; Visit Provider Family Medicine
DX: I25.3 Aneurysm of heart (principal); R41.3 Other amnesia
CPT/HCPCS: 36415; 80053; 80061; 82306; 82607; 82746; 83036; 83525; 83540; 84436; 84443; 84481; 85025

== ENCOUNTER 2024-09-27 07:38 | Outpatient (OUT) | payer BC, SELFPAY ==
--- OUTSIDE RECORDS SUMMARY | 2024-09-27 07:44 | XMS_ITS | CCD ---
Author Organization [facility] Care Team Providers Care Ed Physicians Name Role Phone John Moreno MD Primary Care Provider [phone] John Moreno Primary Care Physician Gregg PICKERING Attending Unavailable John Griffin Referring Unavailabl e Gregg PICKERING Attending Unavailable HOY ., DR LOPEZ Admitting Unavailable HOY ., DR LOPEZ Attending Unavailable HOY ., DR LOPEZ Primary Care Unavailable HOY ., DR LOPEZ Consulting Unavailable PARKER, DR RONNIE Fierro Consulting Unavailable HOY ., [...] Unavailable John Moreno MD Primary Care Provider [phone] CNM, Quynh Unavailable [phone] JEANETTE CALABRESE Referring Unavailable JEANETTE CALABRESE Attending Unavailable JOHN MORENO Primary Care Unavailable RADIOLOGY, RADIOLOGIST Attending Unavailab le HAMOUDA, LINDA M Referring Unavailable HAMOUDA, LINDA M Referring Unavailable HAMOUDA, LINDA M Referring Unavailable HAMOUDA, LINDA M Attending Unavailable HEDGES, CRAOL W Referring Unavailable HOY, JOHN M Primary Care Unavailable FAGGIONATO, NIKOLAY Referring Unavailable HOY, JOHN M Primary Care Unavailable HEDGES, CAROL W Referring Unavailable HOY, JOHN M Primary Care Unavailable FAGGIONATO, NIKOLAY Referring Unavailable HOY, JOHN M Primary Care Unavailable HEDGES, CAROL W Attending Unavailable LONG, CAROL W Referring Unavailable HOY, JOHN M Primary Care Unavailable John Moreno MD Primary Care Provider [phone] [facility] Sergo MUÑOZ Attending Provider [facility] Sergo MUÑOZ Attending Provider John Moreno MD Primary Care Provider [phone] John Moreno MD [facility] Attending Unavailable John Moreno Attending Unavailable John Moreno Admitting Unavailable Ethany, John M Primary Care Unavailable Allergies Allergy Classification Reported Allergen(s) Allergy Type Date of Onset Reaction(s) Facility Adhesive Tape (3 sources) Adhesive Tape Substance Allergy 3 [facility] Latex (3 sources) Latex Substance Allergy 3 [facility] NSAIDs (3 sources) Ibuprofen Drug Allergy 3 [facility] Penicillins (antibiotic) (3 sources) Penicillins Drug Allergy 3 [facility] (7 sources) Adhesive Tape; Translations: [Adhesive tape] Propensity to adverse reactions to drug 5 skin irritation [facility] (4 sources) Desonide; Translations: [DESONIDE] Drug Allergy 5 Other (See Comments) [facility] (5 sources) Ibuprofen; Translations: [IBUPROFEN] Drug Allergy 3 Other (See Comments) [facility] (7 sources) Latex; Translations: [Latex] Propensity to adverse reactions to drug 3 Other (See Comments), Weal (disorder) [employer] Phone: (8 sources) Penicillins; Translations: [Penicillins] Propensity to adverse reactions to drug 5 Rash [employer] Work Phone: (3 sources) predniSONE; Translations: [PREDNISONE] Drug Allergy 6 Swelling [employer] Phone: (4 sources) Cephalexin; Translations: [cephalexin] Drug Allergy 3 Unknown (qualifier value), Nausea And Vomiting [facility] [place] (2 sources) Penicillin; Translations: [penicillin] Drug Allergy Anaphylaxis (disorder) [facility] [place] (1 source) Cephalexin Drug Allergy [facility] (2 sources) Ibuprofen Drug Allergy 5 [facility] (2 sources) Latex Drug allergy (disorder) 5 [facility] (2 sources) predniSONE Drug Allergy 6 [facility] (1 source) Adhesive agent; Translations: [ADHESIVE] Propensity to adverse reactions to drug (disorder) 3 [facility] Rep[facility] (2 sources) Morphine; Translations: [MORPHINE] Drug Allergy 3 Other (See Comments) [facility] (2 sources) fentaNYL; Translations: [fentanyl] Drug Allergy 5 Anaphylaxis [facility] (1 source) Ibuprofen Drug Allergy 5 [facility] (1 source) Latex Drug allergy (disorder) 5 [facility] Medications Current Medications Medication Drug Class(es) Dates Sig (Normalized) Sig (Original) naproxen sodium 275 mg oral tablet (1 source) Nonsteroidal Anti-inflammatory Drug Start: 02-26-2023 take 1 tablet by mouth three times daily at mealtime as needed for pain naproxen sodium (ANAPROX) 275 MG tablet Indications: Acute pelvic pain, female Take 1 tablet by mouth 3 times daily (with meals) As needed for pelvic pain 60 tablet 3 02/26/2023 Active ondansetron 4 mg disintegrating oral tablet (6 [...] Problem Date Documented Da te Episodic/Chronic Abdominal pain (8 sources) Unspecified abdominal pain; Translations: [Epigastric pain] Onset: 2 Episodic Asthma (1 source) Exacerbation of moderate persistent asthma; Translations: [Moderate persistent asthma with (acute) exacerbation] Chronic Esophageal disorders (2 sources) Gastroesophageal reflux disease; Translations: [Gastro-esophageal reflux disease without esophagitis] Onset: 2 01-16-2022 Chronic Fluid and electrolyte disorders (1 source) Dehydration; Translations: [Dehydration] Episodic Immunizations and screening for infectious disease (1 source) Contact with and (suspected) exposure to tuberculosis; Translations: [Contact with and (suspected) exposure to tuberculosis] Onset: 4 Episodic Nonmalignant breast conditions (2 sources) Fibrocystic disease of breast; Translations: [Diffuse cystic mastopathy of unspecified breast] Onset: 3 01-16-2022 Chronic Nonmalignant breast conditions (6 sources) Unspecified lump in unspecified breast; Translations: [Unspecified lump in the left breast, unspecified quadrant] Onset: 4 Episodic Other female genital disorders (1 source) Other specified noninflammatory disorders of vagina; Translations: [Other specified noninflammatory disorders of vagina] Onset: 3 Episodic Other gastrointestinal disorders (3 sources) Diarrhea; Translations: [Diarrhea, unspecified] Onset: 2 Episodic Other gastrointestinal disorders (1 source) History of gastritis 01-16-2022 Episodic Other lower respiratory disease (2 sources) Dyspnea; Translations: [Shortness of breath] Episodic Other screening for suspected conditions (not mental disorders or infectious disease) (1 source) Abnormal findings on diagnostic imaging of other specified body structures; Translations: [Abnormal findings on diagnostic imaging of other specified body structures] Onset: 5 Chronic Regional enteritis and ulcerative colitis (1 source) [...] use and exposure - finding 01-21-2022 Chronic Spondylosis; intervertebral disc disorders; other back problems (2 sources) Cervical disc disorder; Translations: [Cervical disc disorder, unspecified, unspecified cervical region] Onset: 3 01-16-2022 Chronic Substance-related disorders (1 source) Nicotine dependence, cigarettes, uncomplicated; Translations: [NICOTINE DEPEND CIGARETTES UNCOMP] Onset: 2 Chronic Superficial injury; contusion (2 sources) Contusion of head; Translations: [Contusion of unspecified part of head, initial encounter] Episodic Tuberculosis (2 sources) Personal history of tuberculosis; Translations: [Personal history of tuberculosis] Onset: 4 Episodic Unclassified (1 source) Body mass index 20-24 - normal 01-21-2022 Unclassified (1 source) CONTACT W/AND (SUSP) EXPOS COVID-19; Translations: [CONTACT W/AND (SUSP) EXPOS COVID-19] Onset: 2 Urinary tract infections (4 sources) Acute cystitis with hematuria; Translations: [ACUTE CYSTITIS WITH HEMATURIA] Onset: 3 Episodic Past or Other Problems Problem Classification Problem Date Documented Da te Episodic/Chronic Abdominal hernia (2 sources) Left inguinal hernia ; Translations: [Unilateral inguinal hernia, without obstruction or gangrene, not specified as recurrent] Onset: 04-15-2023 01-16-2022 Episodic Benign neoplasm of uterus (2 sources) Uterine leiomyoma; Translations: [Leiomyoma of uterus, unspecified] Onset: 04-15-2023 01-16-2022 Episodic Complications of surgical procedures or medical care (2 sources) Postgastric surgery syndrome; Translations: [Postgastric surgery syndromes] Onset: 04-15-2023 01-16-2022 Episodic Gastritis and duodenitis (2 sources) Gastritis, unspecified, without bleeding; Translations: [Gastritis] Onset: 02-20-2022 04-15-2023 Episodic Nausea and vomiting (3 sources) Nausea and vomiting; Translations: [Nausea with vomiting, unspecified] Onset: 02-20-2022 Episodic Other connective tissue disease (2 sources) Impingement syndrome of shoulder region; Translations: [Impingement syndrome of unspecified shoulder] Onset: 04-15-2023 01-16-2022 Episodic Other gastrointestinal disorders (2 sources) Hemorrhagic diarrhea ; Translations: [Diarrhea, unspecified] Onset: 04-15-2023 01-21-2022 Episodic Other gastrointestinal disorders (1 source) Change in bowel habit; Translations: [CHANGE IN BOWEL HABIT] Onset: 02-20-2022 Episodic Other gastrointestinal disorders (1 source) Diarrhea, unspecified; Translations: [DIARRHEA UNSPECIFIED] Onset: 02-20-2022 Episodic Other gastrointestinal disorders (1 source) Altered bowel function; Translations: [Change in bowel habit] Onset: 02-20-2022 04-15-2023 Episodic Other screening for suspected conditions (not mental disorders or infectious disease) (7 sources) Abnormal findings on diagnostic imaging of breast; Translations: [Other abnormal and inconclusive findings on diagnostic imaging of breast] Onset: 03-26-2023 05-04-2023 Episodic Residual codes; unclassified (1 source) Acquired absence of other specified parts of digestive tract; Translations: [ACQ ABSENCE OTH PART DIGESTV TRACT] Onset: 02-20-2022 Episodic Residual codes; unclassified (1 source) Body mass index 20-24 - normal; Translations: [Body mass index (BMI) of 20 to 24] Onset: 04-15-2023 04-15-2023 Episodic Screening and history of mental health and substance abuse codes (1 source) Tobacco use and exposure - finding; Translations: [Personal history of nicotine dependence] Onset: 04-15-2023 04-15-2023 Episodic Sexually transmitted infections (not HIV or hepatitis) (2 sources) Gonococcal infection, unspecified; Translations: [Gonorrhea] Onset: 03-02-2023 03-02-2023 Episodic Spondylosis; intervertebral disc disorders; other back problems (2 sources) Low back pain; Translations: [Low back pain] Onset: 04-15-2023 01-16-2022 Episodic Results Test Name Value Interpretation Reference Range Facility CT chest w [facility] 08-29-2024 CT chest w con [facility] [place] [address] [place] [address] CT Scan Report Signed Patient: Nahum Guzman MR# : [id number] : 1980 Acct:[id number] Age/Sex: 43 / F ADM Date: 08/29/24 Loc: CT Room: Type: [facility] Attending Dr: John Moreno MD Copies to: John Moreno MD Ordering Provider: John Moreno MD Date of Service: 08/29/24 CT/CT chest w con: R93.89 CT CHEST WITH INTRAVENOUS CONTRAST: CLINICAL HISTORY: Follow-up abnormal right heart border on chest x-ray COMPARISON: 08/11/2024 TECHNIQUE: Spiral images were obtained through the chest following intravenous administration of 90 mL of Isovue-300. Images were reviewed using both narrow and wide window settings. This CT exam was performed using one or more following dose reduction techniques: Automated exposure control, adjustment of the mA and/or kV according to patient size, or use of iterative reconstruction technique. FINDINGS: The heart is not enlarged. There is an elongate hypodense area which extends from the anterior mediastinum down to the right pericardial region measuring approximately 9.8 x 4.6 x 3.7 cm in size. Hounsfield measurements suggest this is fluid. It might be a pericardial cyst. It would correlate with the area of concern on chest x-ray. No aortic aneurysm or dissection is seen. There is no mediastinal or hilar lymphadenopathy. There are couple nodular asymmetries at the superior medial left breast measuring up to 13 mm. Patient has no previous breast imaging at this facility. There are tiny endplate spurs. There is no consolidation, pleural effusion or discrete soft tissue nodules. No pneumothorax is seen. Limited cuts through the upper abdomen show prior cholecystectomy. There is a 12 mm left adrenal nodule. There is might be an adenoma. CT/CT chest w con IMPRESSION: SUSPECTED RIGHT PERICARDIAL CYST WHICH CORRELATES WITH THE AREA OF CONCERN ON PRIOR CHEST X-RAY. FOLLOW-UP COULD BE OBTAINED TO ASSESS STABILITY. NO OTHER ACUTE PULMONARY FINDINGS. INCIDENTAL LEFT BREAST NODULARITY. IF NOT RECENTLY PERFORMED ELSEWHERE, FOLLOW-UP WITH MAMMOGRAM AND/OR ULTRASOUND COULD BE PERFORMED. Impression dictated by: Rosa Jones M.D.08/29/2024 10:23 AM Dictation Location: RADIO-PC-23 Transcribed By: LISA 08/29/24 1023 Dictated By: Rosa Jones MD 08/29/24 1001 Signed By: 08/29/24 1023 Normal [facility] X-ray reportOrdered By: Duke Beckwith on 08-11-2024 Study report [facility] Main [address] [address] XRay Report Signed Patient: Nahum Guzman MR#: [id number] : 1980 Acct:[id number] Age/Sex: 43 / F ADM Date: 5 Loc: [place] Room: Type: REG REF Attending Dr: Sergo Hummel - [facility] Copies to: Sergo Hummel DO~ Ordering Provider: Sergo Hummel DO Date of Service: 08/11/24 XR/XR chest 2V*: HISTORY OF POSITIVE PPD TESTING PRE EMPLOYMENT PHYSICAL Chest 2 views CLINICAL HISTORY: Positive TB test. COMPARISON: None FINDINGS: There appears to be abnormal contour of the right heart border. No lung consolidation pneumothorax or pleural effusion. No free air. XR/XR chest 2V* IMPRESSION: ABNORMAL CONTOUR OF THE RIGHT HEART BORDER. COMPLETE EVALUATION WITH CT CHEST WITH IV CONTRAST IS RECOMMENDED. Impression dictated by: Mina Beckwith Jr., D.OManuel08/11/2024 3:58 PM Dictation Location: RADIO-PC-22 Transcribed By: LISA 08/11/24 1558 Dictated By: Mina Beckwith Jr, DO 08/11/24 1557 Signed By: 08/11/24 1558 [facility] XR chest 2V*on 08-11-2024 XR chest 2V* [address] [address] XRay Report Signed Patient: Nahum Guzman MR# : [id number] : 1980 Acct:[id number] Age/Sex: 43 / F ADM Date: 08/11/24 Loc: [place] Room: Type: REG REF Attending Dr: Sergo Lovelace [facility] Copies to: Sergo Hummel DO Ordering Provider: Sergo Hummel DO Date of Service: 08/11/24 XR/XR chest 2V*: HISTORY OF POSITIVE PPD TESTING PRE EMPLOYMENT PHYSICAL Chest 2 views CLINICAL HISTORY: Positive TB test. COMPARISON: None FINDINGS: There appears to be abnormal contour of the right heart border. No lung consolidation pneumothorax or pleural effusion. No free air. XR/XR chest 2V* IMPRESSION: ABNORMAL CONTOUR OF THE RIGHT HEART BORDER. COMPLETE EVALUATION WITH CT CHEST WITH IV CONTRAST IS RECOMMENDED. Impression dictated by: Mina Beckwith Jr., D.OManuel08/11/2024 3:58 PM Dictation Location: [place] [address] Transcribed By: [facility] 08/11/24 1558 Dictated By: Mina Beckwith Jr, DO 08/11/24 1557 Signed By: 08/11/24 1558 Normal [facility] XR CHEST (2 VW)on 01-05-2024 XR CHEST (2 VW) EXAM: XR CHEST (2 VW ) HISTORY: Exposure to TB COMPARISON: CT chest, [place], 09/04/2021, chest x-ray 09/04/2021. IMPRESSION: FINDINGS/IMPRESSION: 1. 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 2. Normal-sized heart. 3. Lungs clear. 4. No tuberculous change/cavitation/consol idation. Interpreted by: Rajat Kiran Jr., MD Signed by: Rajat Kiran Jr., MD 01/05/24 Final result Normal [facility] Orders Onlyon 09-28-2023 Orders Only [id number] Betzy Roberts 1980 F Date Provider Department Center 09/28/2023 VERÓNICA SUBRAMANIAN None Family History Problem Relation Age of Onset Colon cancer Maternal Grandfather Colon cancer Paternal Grandfather Family Status - Relation Status Age at Maternal Grandfather Paternal Grandfather Normal [facility] APTTon 09-07-2023 ACTIVATED PARTIAL THROMBOPLASTIN TIME IN PPP BY COAGULATION ASSAY 30.4 Seconds Normal 25.0-35.0 [facility] Comment on above: Result Comment: Clin ical significance of the APTT is questionable in the presence of heparin. Performed By: #### L [id number] #### [facility] ([facility]) [address] [place] [address] BI MAMMOGRAM POST BIOPSY CLI P LEFTon 09-07-2023 BI MAMMOGRAM POST BIOPSY CLIP LEFT [...] the results. Electronically signed: Cr Tomas. Normal [facility] CBCon 09-07-2023 Erythrocyte distribution width (RBC) [Ratio] 12.7 % Normal 11.5-15.0 [facility] Comment on above: Performed By: #### L [id number] #### [facility] ([facility]) [address] [place] [address] ERYTHROCYTE MEAN CORPUSCULAR HEMOGLOBIN CONCENTRATION (G/DL) BY AUTOMATED 34.6 g/dL Normal 32.0-35.0 [facility] Comment on above: Performed By: #### L [id number] #### [facility] ([facility]) [address] [place] [address] Hematocrit (Bld) [Volume fraction] 39.0 % Normal 36.0-48.0 [facility] Comment on above: Performed By: #### L [id number] #### [facility] ([facility]) [address] [place] [address] Hemoglobin (Bld) [Mass/Vol] 13.5 g/dL Normal 12.0-15.0 [facility] Comment on above: Performed By: #### L [id number] #### [facility] ([facility]) [address] [place] [address] MCH (RBC) [Entitic mass] 32.3 pg Normal 27.0-33.0 [facility] Comment on above: Performed By: #### L [id number] #### [facility] ([facility]) [address] [place] [address] MCV (RBC) [Entitic vol] 93.3 fL Normal 82.0-98.0 [facility] Comment on above: Performed By: #### L [id number] #### [facility] ([facility]) [address] [place] [address] PLATELETS (10*3/UL) IN BLOOD AUTOMATED COUNT 261 10*3/uL Normal 150-400 [facility] Comment on above: Performed By: #### L [id number] #### [facility] ([facility]) [address] [place] [address] RBC (Bld) [#/Vol] 4.18 10*6/uL Normal 3.80-5.00 [facility] Comment on above: Performed By: #### L [id number] #### [facility] ([facility]) [address] [place] [address] WBC (Bld) [#/Vol] 6.58 10*3/uL Normal 4.00-10.60 [facility] Comment on above: Performed By: #### L [id number] #### [facility] ([facility]) [address] [place] [address] HISTOLOGY - TISSUE EXAMon LAB AP ASR [...] the Clinical Laboratory Improvement Amendments of 1998. [facility] Comment on above: Performed By: #### L [id number] ####[facility] ([facility])[address] [place] [address] LAB AP CASE REPORT Normal [facility] Comment on above: Result Comment: Surg ical Pathology Case: [id number] Authorizing Provider: Linda Pastrana MD Collected: 09/07/2023 1345 Ordering Location: [facility] US IMAGING Received: 09/07/2023 1612 Pathologist: Matthew Cano MD Specimen: Breast, left Performed By: #### L [id number] ####[facility] ([facility])[address] [place] [address] LAB AP CLINICAL INFORMATION Order Diagnoses Normal [facility] Comment on above: Result Comment: N63. 0 - Breast lump [ICD-10-CM] N63.20 - Mass of left breast, unspecified quadrant [ICD-10-CM] R92.8 - Other abnormal and inconclusive findings on diagnostic imaging of breast [ICD-10-CM] Performed By: #### L [id number] ####[facility] ([facility])[address] [place] [address] LAB AP GROSS DESCRIPTION A. Breast. [facility] Comment on above: Result Comment: Part A [...] submitted in cassette A2. Lexie Root, Pathologists' Director Of Retail Analytics Student Radha Blackman, Pathologists' Director Of Retail Analytics Performed By: #### L [id number] ####[facility] ([facility])[address] [place] [address] LAB AP IHC Immunohistochemistry with controls performed with p63 and smooth muscle myosin highlight intact myoepithelial layers. Normal [facility] Comment on above: Performed By: #### L [id number] ####[facility] ([facility])[address] [place] [address] LAB AP MICROSCOPIC DESCRIPTION Microscopic examination performed. Normal [facility] Comment on above: Performed By: #### L [id number] ####[facility] [place] [address] LAB AP REPORT FINAL DIAGNOSIS NARRATIVE [facility] Comment on above: Result Comment: Fauzia st, left, not otherwise specified, needle core biopsy: Benign breast parenchyma with fibrocystic change and adenosis. Microcalcifications identified. Performed By: #### L [id number] ####[facility] ([facility])[address] [place] [address] Labon 09-07-2023 Lab [id number] ArmandoMarizol 1980 F Date Provider Department Center 09/07/2023 2245-[facility] OPD LAB RESOURCE [facility] Family History Problem Relation Age of Onset Colon cancer Maternal Grandfather Colon cancer Paternal Grandfather Family Status - Relation Status Age at Maternal Grandfather Paternal Grandfather Normal [facility] PROTIME-INRon 09-07-2023 INR IN PPP BY COAGULATION ASSAY 0.97 Normal 0.90-1.10 [facility] Comment on above: Result Comment: ACCC [...] 1995;108:[id number]. Performed By: #### L [id number] #### [facility] ([facility]) [address] [place] [address] PROTHROMBIN TIME (PT) IN PPP BY COAGULATION ASSAY 12.9 Seconds Normal 12.3-14.8 [facility] Comment on above: Performed By: #### L [id number] #### [facility] ([facility]) [address] [facility] [place] [address] 36on 08-03-2023 36 Reached out to pt to see what is going on she has not been scheduled for her left us breast biopsy and has no showed a mammogram on 07/27 and canceled one for 08/16. Pt was last seen 07/14/2023 Normal [facility] Orders Onlyon 07-16-2023 Orders Only [id number] Marizol Roberts 1980 F Date Provider Department Center 07/16/2023 [id number], HISTORICAL DCC ONC [facility] Family History Problem Relation Age of Onset Colon cancer Maternal Grandfather Colon cancer Paternal Grandfather Family Status - Relation Status Age at Maternal Grandfather Paternal Grandfather Normal [facility] Consulton 07-14-2023 Consult [id number] Marizol Roberts 1980 F Date Provider Department Center 07/14/2023 292-LINDA PASTRANA [facility] ONC [facility] Family History Problem Relation Age of Onset Colon cancer Maternal Grandfather Colon cancer Paternal Grandfather Family Status - Relation Status Age at Maternal Grandfather Paternal Grandfather Level of Service:85838 AR OFFICE/OUTPATIENT NEW HIGH MDM 60 MINUTES (GC) Reason for Visit and Comments: New Patient [632] - Ref- Dr. Mcclelland ([facility] LOAD DISPATCHER LOCAL) Abnormal mammogram of both breast. Does pt needs bilateral breast biopsy? Lt breast biopsy 03/06/2013, Lt breast core biopsy 04/14/2012, and Rt breast biopsy 04/18/2010. Normal [facility] Orders Onlyon 07-01-2023 Orders Only [id number] Ra carmel Roberts 1980 F Date Provider Department Center 07/01/2023 [id number], HISTORICAL DCC ONC DCC No family history on file Normal [facility] BREAST IMAGING SECOND OPINIO N READINGon [...] left breast that have been stable since 2012. However, patient had bilateral areas of palpable [...] ultrasound is recommended for further evaluation. Normal [facility] ZORAIDA DIGITAL DIAGNOSTIC UNILATERAL RIGHTon 04-27-2023 JODEE ZORAIDA DIGITAL DIAGNOSTIC UNILATERAL RIGHT EXAM: JODEE [...] Kiran Jr., MD 04/27/23 Final result Normal [facility] US BREAST LIMITED LEFTon US BREAST LIMITED LEFT EXAM: [facility] [place] DIGITAL DIAGNOSTIC UNILATERAL RIGHT, [...] Kiran Jr., MD 04/27/23 Final result Normal [facility] US BREAST LIMITED RIGHTon US BREAST LIMITED RIGHT EXAM: [facility] DIGITAL DIAGNOSTIC UNILATERAL RIGHT, US BREAST LIMITED LEFT, US BREAST LIMITED RIGHT HISTORY: Abnormal screening mammogram COMPARISON: Prior studies most recent of 03/26/2023 and as far back as 2010 and 2013 as previously reported. TECHNIQUE: Right mammogram with [...] Kiran Jr., MD 04/27/23 Final result Normal [facility] Chlamydia/GC DNA, Uron 03-30 Chlamydia Probe, Ur Negative Normal NEG [facility] Comment on above: Result Comment: CHLA MYDIA [...] nucleic acid target. Performed By: #### U CGP #### [employer] [address] [place] [address] [employer] Machinery Or Equipment Installer: Bjorn Balderas MD Gonorrhea Probe, Ur Negative Normal NEG [facility] Comment on above: Result Comment: NEIS SERIA [...] nucleic acid target. Performed By: #### U CGP #### [employer] [address] [place], [place] [id number] [employer] Equipment Installer: Bjorn Balderas MD [facility] [place] DIGITAL SCREEN EZPetrona Rangellisette 03-30-2023 JODEE [place] DIGITAL SCREEN BILATERAL HISTORY: Screening. Patient presented complaining of bilateral breast lumpiness. TECHNIQUE: Bilateral digital screening mammogram with CAD. Digital breast tomosynthesis images. [place] skin markers were placed over both upper [...] MD 03/30/23 Edited Result - FINAL Normal [facility] Chlamydia/GC DNA, TPon 03-01 Chlamydia Probe, TP Negative Normal NEG [facility] Comment on above: Result Comment: CHLA MYDIA [...] target. Performed By: #### C YTCGP #### [employer] [address] [place] [address] [id number] [employer] Equipment Installer: Bjorn Balderas MD Gonorrhea Probe, TP POSITIVE: NEISSERIA GONORRHOEAE DNA detected by nucleic acid amplification. Abnormal NEG [facility] Comment on above: Result Comment: This test [...] Department Performed By: #### C YTCGP #### [employer] [address] [place] [id number] [employer] Equipment Installer: Bjorn Balderas MD Cult,Genitalon 03-01-2023 Cult,Genital Specimen Description .VAGINA Culture NORMAL URO-GENITAL YSESI NEISSERIA GONORRHOEAE LIGHT GROWTH Results reported to the appropriate Health Department NEGATIVE FOR GROUP B STREPTOCOCCI Report Status FINAL 03/01/2023 [facility] Comment on above: Performed By: #### G EC #### [employer] [address] [place] [address] [phone] [employer] Equipment Installer: Bjorn Balderas MD [facility] [address] [place] [address] Office Machinery Or Equipment Installer: Ronnie Mayo MD Cytology Reporton 02-26-2023 Cytology report Cyto stain.thin prep Doc (Cvx/Vag) (NOTE) Path Number: [id number] DIAGNOSIS Imaged ThinPrep Pap - Cervical (1 monolayer slide): Specimen Adequacy: Satisfactory for evaluation. - Endocervical/transformat ion zone component present. Descriptive Diagnosis: Negative for intraepithelial lesion or malignancy. Comments: Specimen was screened at [facility], [address] [place] [address] Cytotech Screener: KUNAL Electronically Signed Out PARMINDER Jung(ASCP) cs/03/06/2023 Source of Specimen: A: Imaged ThinPrep Pap - Cervical (1 monolayer slide) HPV Reflex?................. .....HPV if Abnormal Clinical History Endometrial ablation Tubal ligation High risk HPV DNA testing is requested if the diagnosis is abnormal Z01.419 Routine economic development manager exam without abnormal findings Processing Lab: [address] [phone] [place] [address] This Pap Test has been evaluated with [...] GYNECOLOGIC CYTOLOGY REPORT Patient Name: NAHUM ROBERTS [facility] Rec: [id number] [facility] ANATOMIC PATHOLOGY [address] [facility]. [place], [place] [address] Normal [facility] CULTURE URINEon 09-21-2022 CULTURE URINE Culture Observations : LIGHT GROWTH OF MIXED GENITAL YESSI. NO POTENTIAL PATHOGENS SEEN. Normal [facility] Comment on above: Performed By: #### U RCX #### [facility] [address] [address] [address] Christopher Rivera UA RANDOM W/MICROSCOPICon BACTERIA TRACE Abnormal NONE SEEN [facility] Comment on above: Performed By: #### U AMIC #### [facility] [address] [address] [address] Christopher Rivera Bilirubin Ql (U) Negative Normal NEGATIVE [facility] Comment on above: Performed By: #### U AMIC #### [facility] [address] [address] [address] Christopher Rivera CAST NONE SEEN Normal NONE SEEN [facility] Comment on above: Performed By: #### U AMIC #### [facility] [address] [address] [address] Christopher Rivera Clarity (U) CLEAR Normal CLEAR [facility] Comment on above: Performed By: #### U AMIC #### [facility] [address] [address] [address] Christopher Rivera Color (U) LT. YELLOW Normal YELLOW [facility] Comment on above: Performed By: #### U AMIC #### [facility] [address] [address] [address] Christopher Rivera Crystals LM Nom (Urine sed) NONE SEEN Normal NONE SEEN [facility] Comment on above: Performed By: #### U AMIC #### [facility] [address] [address] [address] Christopher Rivera Epithelial cells LM Ql (Urine sed) FEW Abnormal NONE SEEN /RARE [facility] Comment on above: Performed By: #### U AMIC #### [facility] [address] [address] [address] Christopher Rivera Glucose Ql (U) Negative Normal NEGATIVE [facility] Comment on above: Performed By: #### U AMIC #### [facility] [address] [address] [address] Christopher Rivera Hemoglobin Ql (U) TRACE-INTACT Abnormal NEGATIVE [facility] Comment on above: Performed By: #### U AMIC #### [facility] [address] [place] [address] Dr. Christopher Rivera Ketones Ql (U) Negative Normal NEGATIVE [facility] Comment on above: Performed By: #### U AMIC #### [facility] [address] [place] [address] Dr. Christopher Rivera LEUKOCYTES Negative Normal NEGATIVE [facility] Comment on above: Performed By: #### U AMIC #### [facility] [address] [place] [address] Dr. Christopher Rivera MUCOUS NONE SEEN Normal NONE SEEN [facility] Comment on above: Performed By: #### U AMIC #### [facility] [address] [place] [address] Dr. Christopher Rivera Nitrite Ql (U) Negative Normal NEGATIVE [facility] Comment on above: Performed By: #### U AMIC #### [facility] [address] [place] [address] Dr. Christopher Rivera pH (U) 5.5 [pH] Normal 5-9 [facility] Comment on above: Performed By: #### U AMIC #### [facility] [address] [place] [address] Dr. Christopher Rivera RBC 0-2 Normal 0-2 [facility] Comment on above: Performed By: #### U AMIC #### [facility] [address] [place] [address] Dr. Christopher Rivera SPEC GRAVITY <=1.005 Abnormal 1.005-<=1.02 5 [facility] Comment on above: Performed By: #### U AMIC #### [facility] [address] [place] [address] Dr. Christopher Rivera UA PROTEIN Negative Normal NEGATIVE/ TRACE [facility] Comment on above: Performed By: #### U AMIC #### [facility] [address] [place] [address] Dr. Christopher Rivera Urobilinogen Qn (U) 0.2 {Allyssa'U}/dL Normal 0.2 - 1. 0 [facility] Comment on above: Performed By: #### U AMIC #### [facility] [address] [place], [place] [address] Dr. Christopher Rivera WBC NONE SEEN Normal NONE SEEN [facility] Comment on above: Performed By: #### U AMI #### [facility] [address] [place], [place] [address] Dr. Christopher Rivera US KIDNEYS BLADDERon 09-01-2 023 US KIDNEYS BLADDER EXAMINATION: US KIDN [...] by: LAURA SCHRADER Date: 2022-09-01 10:51 Normal [facility] XR KUB 1 VIEWon 08-26-2022 XR KUB [...] by: RONNIE DUONG Date: 2022-08-26 12:57 Normal [facility] Pathology Noteon 02-20-2022 Pathology Note [id number]#[id number] :127 Normal [facility] Outside Colonoscopyon 2021 Outside Colonoscopy [id number]#1.00CD: 127 Normal [facility] Reminderson 02-19-2022 Reminders - From: Zeny Andujar LPN To: N - Clinical; Sent: 02/19/2022 12:49:40 EDT Show up: 01/19/2032 07:00:00 EDT Subject: colonoscopy recall Due Date/Time: 02/19/2032 07:00:00 EDT Reminder/Recall Patient is due for screening colonoscopy 02/19/2032. Normal [facility] PREG HCG QUALon 02-18-2022 , QUAL Negative Normal NEGATIVE [facility] Comment on above: Performed By: #### P REG #### [facility] [address] [place] [address] Dr. Christopher Rivera Lab Reportson 02-17-2022 Lab Reports [id number]: 127 Normal [facility] Covid-19 PCR (CVDTBH)on SARS-CoV-2 (COVID-19) RNA SUNSHINE+probe Ql (Unsp spec) Not detected Normal NOT DETECTED [facility] Comment on above: Result Comment: This test is not yet approved or cleared by the [place] FDA. When there are no FDA-approved or cleared tests available, and other criteria are met, FDA can make tests available under an emergency access mechanism called an Emergency Use Authorization (EUA). The EUA for this test is supported by the Bottom Worker of Health and Human Service's (HHS's) declaration [...] consistent with SARS-CoV-2. Performed By: #### C [facility] #### [facility] [address] [address] [address] Christopher Rivera Consent for Procedure/Surger yon 01-22-2022 Consent for Procedure/Surgery [id number]#1.00CD: 127 [facility] Summaryon 0 01-21-2022 Ambulatory Visit [...] Shoulder impingement syndrome Tobacco use Uterine leiomyoma [facility] CBC with Auto Differentialon 09-04-2021 Absolute Eos # 0.05 [facility] th Absolute Lymph # 1.20 [place] [facility] Absolute [place] # 0.86 [place] [facility] lt Basophils (Bld) [#/Vol] 0 - 2 % [facility] Basophils Absolute [facility] Eosinophils/100 WBC (Bld) 1 % 0 - 5 % [facility] Hematocrit (Bld) [Volume fraction] 42.8 % 36 - 46 % [facility] Hemoglobin.gastroin testinal spec 1 Ql (Stl) 14.4 g/dL 12.0 - 16.0 g/dL [facility] Interpretation and review of laboratory results Abnormal [facility] Lymphocytes/100 WBC (Bld) 25 % 15 - 40 % [facility] MCH (RBC) [Entitic mass] 31.5 pg 26 - 34 pg [facility] MCHC (RBC) [Mass/Vol] 33.7 g/dL 31 - 37 g/dL [facility] MCV (RBC) [Entitic vol] 93.5 fL 80 - 100 fL [facility] Monocytes/100 WBC (Bld) 18 % High 4 - 8 % [facility] Morphology Vincent (Bld) [Interp] Manual Differential Performed [facility] Platelet distribution width (Bld) [Ratio] 13.3 % 12.1 - 15.2 % [facility] Platelets (Bld) [#/Vol] 227 10*3/uL [facility] RBC (Bld) [#/Vol] 4.57 10*6/uL 4.0 - 5.2 m/uL [facility] Segmented neutrophils/100 WBC (Bld) 56 % 47 - 75 % [facility] Segs Absolute 2.69 [facility] WBC (Bld) [#/Vol] 4.8 10*3/uL [facility] COVID-19, Rapidon 09-04-2021 SARS-CoV-2 (COVID-19) RNA SUNSHINE+probe Ql (Unsp spec) Not detected Not Detected [facility] Comment on above: Rapid NAAT: The specimen [...] management decisions. Fact sheet for Healthcare Providers: https://www.fda.gov/media/485675/download Fact sheet for Patients: https://www.fda.gov/media/177706/download Methodology: Isothermal Nucleic Acid Amplification Specimen Description .NASOPHARYNGEAL SWAB [facility] Comprehensive Metabolic Pane cristina 09-04-2021 Albumin [Mass/Vol] 4.2 g/dL 3.5 - 5.2 g/dL [facility] ALP (Bld) [Catalytic activity/Vol] 87 U/L 35 - 104 U/L [facility] ALT [Catalytic activity/Vol] 17 U/L 5 - 33 U/L [facility] Anion gap [Moles/Vol] 14 mmol/L 9 - 17 mmol/L [facility] AST [Catalytic activity/Vol] 17 U/L <32 [facility] Bilirubin [Mass/Vol] 0.51 mg/dL 0.30 - 1.20 mg/dL [facility] Calcium [Mass/Vol] 9.0 mg/dL 8.6 - 10. 4 mg/dL [facility] Chloride [Moles/Vol] 105 mmol/L 98 - 107 mmol/L [facility] CO2 [Moles/Vol] 18 mmol/L Low 20 - 31 mmol/L [facility] Creatinine [Mass/Vol] 0.64 mg/dL 0.50 - 0.90 mg/dL [facility] Free PSA/Total PSA [Mass fraction] 7.4 g/dL 6.4 - 8.3 g/dL [facility] GFR >60 >60 mL/min [facility] GFR Non- >60 >60 mL/min [facility] GFR/1.73 sq M.predicted MDRD (S/P/Bld) [Vol rate/Area] [facility] Comment on above: Average GFR for 40-4 9 years old: 99 mL/min/1.73sq m Chronic Kidney Disease: <60 mL/min/1.73sq m Kidney failure: <15 mL/min/1.73sq m eGFR calculated using average adult body mass. Additional eGFR calculator available at: http://www.Rule..[employer]/multiple_crcl_2012.htm Glucose [Mass/Vol] 105 mg/dL High 70 - 99 mg/dL [facility] Interpretation and review of laboratory results Abnormal [facility] Potassium [Moles/Vol] 4.0 mmol/L 3.7 - 5.3 mmol/L [facility] Sodium [Moles/Vol] 137 mmol/L 135 - 144 mmol/L [facility] Urea nitrogen (BldV) [Mass/Vol] 9 mg/dL 6 - 20 mg/dL [facility] Urea nitrogen/Creatinine (Bld) [Mass ratio] 14 [facility] D-Dimer, Quantitativeon - D-Dimer, Quant 0.34 [facility] Comment on above: When combined with a [...] more prevalent in patients with distal DVT. [facility] EKG Rhythm Stripon 2 H.YogeshanezTOBI [facility] Troponinon 09-04-2021 Troponin, High Sensitivity <6 0 - 14 ng/L [facility] Comment on above: High Sensitivity Troponin values cannot be compared with other Troponin methodologies. Patients with high levels of Biotin oral intake (i.e >5mg/day) may have falsely decreased Troponin levels. Samples collected within 8 hours of biotin intake may require additional information for diagnosis. [facility] XR CHEST PORTABLEon 09-05-19 22 No acute disease. MHPN RIS CONSOLIDATED EXAMINATION: XR CHES T [...] fracture or visible bone lesion. OTHER: Negative. PN RIS CONSOLIDATED Ronnie Duong MD - 09/04/2021 EXAMINATION: [...] lesion. OTHER: Negative. IMPRESSION: No acute disease. [facility] Work Phone: Radiology Study observation (narrative) [facility] Work Phone: XR CHEST PORTABLEOrdered By: Ronnie Duong on 09-04-2021 [facility] Basic Metabolic Panelon 08-13 Anion gap [Moles/Vol] 13 mmol/L 9 - 17 mmol/L [facility] Calcium [Mass/Vol] 9.1 mg/dL 8.6 - 10. 4 mg/dL [facility] Chloride [Moles/Vol] 103 mmol/L 98 - 107 mmol/L [facility] CO2 [Moles/Vol] 18 mmol/L Low 20 - 31 mmol/L [facility] Creatinine [Mass/Vol] 0.64 mg/dL 0.50 - 0.90 mg/dL [facility] GFR >60 >60 mL/min [facility] GFR Non- >60 >60 mL/min [facility] GFR/1.73 sq M.predicted MDRD (S/P/Bld) [Vol rate/Area] [facility] Comment on above: Average GFR for 40-4 9 years old: 99 mL/min/1.73sq m Chronic Kidney Disease: <60 mL/min/1.73sq m Kidney failure: <15 mL/min/1.73sq m eGFR calculated using average adult body mass. Additional eGFR calculator available at: http://www.Rule..[employer]/multiple_crcl_2011.htm Glucose [Mass/Vol] 100 mg/dL High 70 - 99 mg/dL [facility] Interpretation and review of laboratory results Abnormal [facility] Potassium [Moles/Vol] 4.2 mmol/L 3.7 - 5.3 mmol/L [facility] Sodium [Moles/Vol] 134 mmol/L Low 135 - 144 mmol/L [facility] Urea nitrogen (BldV) [Mass/Vol] 9 mg/dL 6 - 20 mg/dL [facility] Urea nitrogen/Creatinine (Bld) [Mass ratio] 14 [facility] CBC with Auto Differentialon 09-03-2021 Absolute Eos # 0.10 [facility] th Absolute Lymph # 0.90 Low [facility] He alth Absolute [place] # 0.70 [facility] Basophils (Bld) [#/Vol] 0.00 10*3/uL [facility] Basophils/100 WBC (Bld) 1 % 0 - 2 % [facility] Differential Type YES [facility] Eosinophils/100 WBC (Bld) 1 % 0 - 5 % [facility] Hematocrit (Bld) [Volume fraction] 43.4 % 36 - 46 % [facility] Hemoglobin.gastroin testinal spec 1 Ql (Stl) 14.6 g/dL 12.0 - 16.0 g/dL [facility] Interpretation and review of laboratory results Abnormal [facility] Lymphocytes/100 WBC (Bld) 14 % Low 15 - 40 % [facility] MCH (RBC) [Entitic mass] 31.7 pg 26 - 34 pg [facility] MCHC (RBC) [Mass/Vol] 33.8 g/dL 31 - 37 g/dL [facility] MCV (RBC) [Entitic vol] 93.9 fL 80 - 100 fL [facility] Monocytes/100 WBC (Bld) 11 % High 4 - 8 % [facility] Platelet distribution width (Bld) [Ratio] 13.1 % 12.1 - 15.2 % [facility] Platelets (Bld) [#/Vol] 236 10*3/uL [facility] RBC (Bld) [#/Vol] 4.62 10*6/uL 4.0 - 5.2 m/uL [facility] Segmented neutrophils/100 WBC (Bld) 73 % 47 - 75 % [facility] Segs Absolute 4.70 [facility] (Bld) [#/Vol] 6.3 10*3/uL [facility] D-Dimer, Quantitativeon 08-13 D-Dimer, Quant 0.34 [facility] Comment on above: When combined with a [...] more prevalent in patients with distal DVT. [facility] EKG Rhythm Stripon [facility] Microscopic Urinalysison - [facility] Epithelial Cells UA 0 TO 2 /HPF [facility] RBC, UA 2 TO 5 [facility] Troponinon 09-03-2021 Troponin, High Sensitivity <6 0 - 14 ng/L [facility] Comment on above: High Sensitivity Troponin values cannot be compared with other Troponin methodologies. Patients with high levels of Biotin oral intake (i.e >5mg/day) may have falsely decreased Troponin levels. Samples collected within 8 hours of biotin intake may require additional information for diagnosis. [facility] Urinalysison 09-03-2021 Bilirubin Urine Negative NEGATIVE [facility] Color, UA Yellow Yellow [facility] Glucose, Ur Negative NEGATIVE [facility] Interpretation and review of laboratory results Abnormal [facility] Ketones Ql (U) MODERATE Abnormal NEGATIVE [facility] Leukocyte esterase Test strip Ql (U) Negative NEGATIVE [facility] Nitrite, Urine Negative NEGATIVE [place] [facility] th pH, UA 5.0 [facility] Protein, UA Negative NEGATIVE [facility] Specific [place], UA 1.025 [facility] Turbidity UA Clear Clear [facility] Urinalysis Comments [facility] Urine Hgb 2+ Abnormal NEGATIVE [facility] Urobilinogen, Urine Normal Normal [facility] XR CHEST PORTABLEon 09-04-19 22 Hyperinflation, clear [...] fracture or visible bone lesion. OTHER: Negative. MHPN RIS CONSOLIDATED Ronnie Duong MD - 09/03/2021 [...] lesion. OTHER: Negative. IMPRESSION: Hyperinflation, clear lungs [employer] Phone: Radiology Study observation (narrative) [employer] Phone: XR CHEST PORTABLEOrdered By: Ronnie Duong on 09-03-[address] [address] HEAD WO CONTRASTOrdered B y: Joan Diallo on 01-22-2021 No evidence of acute intracranial hemorrhage, hematoma or other structural abnormality. Brain CT is stable compared to January 10, 2018. Intact calvarium and skull base. [employer] Phone: EXAMINATION: CT HEAD WO CONTRAST HISTORY: [...] hemorrhage or hematoma. No focal abnormal density. [employer] Phone: Sourav, pn Incoming Radiant Results From [facility] - 01/22/2021 11:13 AM EDT EXAMINATION: CT [...] 10, 2018. Intact calvarium and skull base. [employer] Phone: [employer] Phone: XR CERVICAL SPINE (4-5 VIEWS )Ordered By: Joan Landrum on 01-22-2021 Minimal degenerative changes, without fracture. [employer] Phone: EXAM: XR CERVICAL SP INE (4-5 VIEWS) HISTORY: S00.93XA 40-year-old female head contusion. COMPARISON: Cervical spine series 12/10/2020. TECHNIQUE: 5 views cervical spine. 6 images. FINDINGS: Minimal age expected degenerative changes in the cervical spine with no fracture or dislocation. Facets and spinous processes are normal. The intervertebral foramina are patent. Lung apices are clear. The odontoid is normal. [employer] Phone: Sourav, Mhpn Incoming Radiant Results From [facility] - 01/22/2021 11:44 AM EDT EXAM: XR [...] normal. IMPRESSION: Minimal degenerative changes, without fracture. [employer] Phone: [employer] Phone: Vital Signs Date Time Vital Sign Value Performing Clinician Jeremiah castaneda 01-21-2022 15:46-0400 Blood Pressure Location [facility] [employer] 01-21-2022 15:46-0400 Diastolic blood pressure 66 mm[Hg] [employer] [facility] [employer] 01-21-2022 15:46-0400 Heart rate 72 /min .[employer] [facility] [employer] 01-21-2022 15:46-0400 Respiratory rate 16 /min [facility] [employer] 01-21-2022 15:46-0400 Systolic blood pressure 124 mm[Hg] Gregg [employer] [facility] [place] 09-04-2021 10:30-0400 Diastolic blood pressure 69 mm[Hg] Alexis Brandon MD Work Phone: [facility] 09-04-2021 10:30-0400 Heart rate 97 /min Alexis Brandon MD Work Phone: [facility] 09-04-2021 10:30-0400 Respiratory rate 22 /min Alexis Brandon MD Work Phone: [facility] 09-04-2021 10:30-0400 SaO2% (BldA) [Mass fraction] 98 % Alexis Brandon MD Work Phone: [facility] 09-04-2021 10:30-0400 Systolic blood pressure 112 mm[Hg] Alexis Brandon MD Work Phone: [facility] 09-04-2021 07:44-0400 Body temperature 98.2 [degF] Alexis Brandon MD Work Phone: [facility] 09-03-2021 17:00-0400 Diastolic blood pressure 74 mm[Hg] Alexis Brandon MD Work Phone: [facility] 09-03-2021 17:00-0400 Heart rate 94 /min Alexis Brandon MD Work Phone: [facility] 09-03-2021 17:00-0400 Respiratory rate 15 /min Alexis Brandon MD Work Phone: [facility] 09-03-2021 17:00-0400 SaO2% (BldA) [Mass fraction] 96 % Alexis Brandon MD Work Phone: [facility] 09-03-2021 17:00-0400 Systolic blood pressure 119 mm[Hg] Alexis Brandon MD Work Phone: [facility] 09-03-2021 15:02-0400 Body height 167.6 cm Alexis Brandon MD Work Phone: [facility] 09-03-2021 15:02-0400 Body mass index (BMI) [Ratio] 20.98 kg/m2 Alexis Brandon MD Work Phone: [facility] 09-03-2021 15:02-0400 Body weight 58.97 kg Alexis Brandon MD Work Phone: [facility] 09-03-2021 15:01-0400 Body temperature 98.1 [degF] Alexis Brandon MD Work Phone: [facility] Encounters Encounter Date Encounter Type Care Provider Facility Start: 08-29-2024 End: 08-29-2024 Patient encounter procedure John Moreno MD Work Phone: [facility] Work Phone: Start: 08-29-2024 End: 08-29-2024 ambulatory John Moreno MD Work Phone: [facility] Work Phone: Start: 08-11-2024 End: 08-11-2024 Departed Referred Sergo Hummel [facility] DO Work Phone: [facility] [address] Work Phone: Start: 08-11-2024 End: 08-11-2024 ambulatory Sergo Hummel [facility] Work Phone: Start: 01-05-2024 End: 01-07-2024 ambulatory NIKOLAY FAJOZEFIONCATHLEEN [facility] Start: 01-05-2024 End: 01-07-2024 Subsequent hospital visit by physician John Moreno MD Work Phone: [facility] Start: 09-07-2023 End: 09-08-2023 ambulatory LINDA [facility] Start: 09-07-2023 End: 09-07-2023 ambulatory RADIOLOGIST RADIOLOGY [facility] Start: 08-18-2023 End: 08-19-2023 ambulatory LINDA M HAMOUDA [facility] Start: 07-14-2023 ambulatory LINDA PASTRANA [facility] Start: 05-04-2023 ambulatory JEANETTE CALABRESE Facility :[facility] Start: 05-04-2023 End: 05-04-2023 Subsequent hospital visit by physician Jeanette Calabrese MANUFACTURER AGENT-FREIGHT SORTER Work Phone: [facility] Comment on above: Arrived Start: 04-27-2023 End: 04-29-2023 ambulatory [facility]OL [facility]CC[facility] Start: 03-29-2023 End: 03-30-2023 ambulatory CAROL Donovan [facility] Start: 03-26-2023 End: 03-28-2023 ambulatory CAROL MCCLELLAND [facility] Start: 03-04-2023 End: 03-05-2023 ambulatory QUYNH HUGHES [facility] Start: 02-26-2023 End: 02-27-2023 ambulatory JOHN MORENO [facility] Start: 02-26-2023 Encounter for gynecological examination (general) (routine) without abnormal findings [facility] Start: 09-21-2022 End: 09-22-2022 ambulatory SHELDON BENNETT Facility:[facility] Start: 09-01-2022 End: 09-02-[address] JOHN MORENO . Facility: Start: 08-26-2022 End: 08-27-[address] JOHN MORENO . Facility:[facility] Start: 02-18-2022 End: 02-19-2022 ambulatory Gregg PICKERING Facility:CD:[id number] Start: 02-17-2022 Encounter for preprocedural laboratory examination DR GREGG PICKERING . [facility] Start: 02-14-2022 End: 02-15-[address] GREGG PICKERING . Facility:[facility] Start: 02-14-2022 End: 02-15-2022 Encounter for preprocedural laboratory examination DR GREGG PICKERING . Facility: Start: 01-21-2022 End: 01-22-2022 ambulatory Gregg PICKERING Facility:[facility] Start: 01-21-2022 End: 01-21-2022 Patient encounter procedure Gregg R GROVER General Surgery [facility] Start: 12-25-[address] JOHN MORENO . Facili ty:[facility] Start: 09-04-2021 End: 09-04-2021 Emergency department patient visit Alexis Brandon MD Work Phone: [facility] Comment on above: Shortness of breath (Primary Dx); Moderate persistent asthma with exacerbation; Dehydration; Diarrhea, unspecified type; Exacerbation of Crohn's disease with complication (HCC) Start: 09-03-2021 End: 09-03-2021 Emergency department patient visit Alexis Brandon MD Work Phone: [facility] Comment on above: Nausea and vomiting, intractability of vomiting not specified, unspecified vomiting type (Primary Dx); Diarrhea, unspecified type; Shortness of breath Start: 01-22-2021 End: 01-24-2021 Subsequent hospital visit by physician [facility] Scan [facility] Comment on above: Contusion of head, u nspecified part of head, initial encounter Procedures Date Procedure Procedure Detail Performing Clinician Start: 08-29-2024 CT of thorax with contrast John Moreno MD Work Phone: Start: 08-11-2024 Plain chest X-ray Sergo Lovelace [facility] Work Phone: Start: 02-26-2023 Microscopic observat ion [Identifier] in Cervix by Cyto stain John Moreno MD Work Phone: Start: 09-04-2021 Ecg routine ecg w/le ast [...] spine cervical 4 or 5 views Joan Diallo MANUFACTURER AGENT - PHARMACEUTICAL SALES REPRESENTATIVE Work Phone: Start: 01-22-2021 Ct head/brain w/o co ntrast material Joan Diallo MANUFACTURER AGENT - PHARMACEUTICAL SALES REPRESENTATIVE Work Phone: Start: 06-09-2016 Diagnostic laparoscopy Gregg PICKERING Start: 05-09-2012 Diagnostic laparoscopy Gregg PICKERING Start: 05-20-2011 Colonoscopy Gregg PUCKETT LL Cholecystectomy Gregg GARZAL Endometrial ablation Gregg PICKERING Ligation of fallopian tube Rima pierson GROVER Plan of Treatment Date Care Activity Detail Author Start: 02-26-2026 Screening for malignant neoplasm of cervix [facility] Start: 04-27-2025 Screening for malignant neoplasm of breast Breast cancer screen [facility] Start: 04-15-2024 Depression Screen Depression Screen [facility] Start: 03-26-2024 Screening for malignant neoplasm of breast MAMMOGRAM SCREENING DISCUSSION [facility] Start: 01-13-2024 Influenza vaccination Flu vaccine (# 1) [facility] Start: 11-11-2023 Screening for malignant neoplasm of colon [facility] Start: 05-12-2023 End: 05-12-2023 Patient encounter procedure Donnie [facility] Start: 02-12-2023 Influenza vaccination INFLUENZA VACC INE (#1) [facility] Start: 02-12-2021 Influenza vaccination Flu vaccine (# 1) [facility] Start: 2018 Lipid panel [facility] Start: 2008 Screening for malignant neoplasm of cervix [facility] Start: 11-11-1999 Screening for malignant neoplasm of cervix [facility] Start: 1997 DTaP/Tdap/Td vaccine (2 - Tdap) DTaP/Tdap/Td vaccine (2 - Tdap) [facility] Start: 1997 Third diphtheria, tetanus and acellular pertussis (DTaP) vaccination TDAP (ADULT) [facility] Start: 1996 Hepatitis C screening Hepatitis C sc reen [facility] Start: 1993 HIV screening [facility] Start: 1990 COVID-19 Vaccine (1) COVID-19 Vaccin e (1) [facility] Work Phone: Start: 1990 Depression Screen Depression Screen [facility] Start: 1984 Pneumococcal 0-64 years Vaccine (1 of 2 - PCV) Pneumococcal 0-64 years Vaccine (1 of 2 - PCV) [facility] Start: 1984 Pneumococcal 0-64 years Vaccine (1 of 2 - PPSV23) Pneumococcal 0-64 years Vaccine (1 of 2 - PPSV23) [facility] Start: 11-11-1983 COVID-19 Vaccine (1) COVID-19 Vaccin e (1) [facility] Start: 05-13-1979 COVID-19 VACCINE (#1) COVID-19 VACCI NE (#1) [facility] Start: 03-13-1979 Polio vaccine (2 of 3 - 4-dose series) Polio vaccine (2 of 3 - 4-dose series) [facility] Start: 1978 Hepatitis B vaccine (1 of 3 - 3-dose series) Hepatitis B vaccine (1 of 3 - 3-dose series) [facility] Start: 1978 Hepatitis C screening [facility] Start: 1978 Tetanus vaccination TETANUS [facility] EKG 12 Lead EKG 12 Lead ECG STAT 09/03/2021 3:11 PM EDT [facility] Work Phone: EKG 12 Lead EKG 12 Lead ECG STAT 09/04/2021 9:33 AM EDT [facility] Work Phone: End: 05-04-2023 MG Breast Views [facility] Work Phone: Comment on above: 1 Occurrences starti ng 05/04/2023 until 05/04/2023 Payers Date Payer Category Payer Unknown [id number] 2024 Self-pay 2024 Unknown [id number] 2021 Unknown [employer] O PPO POS [id number] 2021-Present [address] [place] [address] [id number] 1978 Unknown [id number] [id number] 1978 Unknown [id number] 2.16840.1.556296.3.579.2.727 1978 Unknown [id number] 2.16840.1.757681.3.579.2.593 1978 Unknown [id number] 2.16840.1.484702.3.579.2.593 1978 Unknown [id number] 2.16.840.1.418887.3.579.2.593 1978 Unknown [id number] 2.16.840.1.707029.3.579.2.593 1978 Unknown [id number] 2.16.840.1.081753.3.579.2.593 1978 Unknown [id number] 2.16.840.1.175367.3.579.2.593 1978 Unknown [id number] 2.16.840.1.026191.3.579.2.173 1978 Unknown [id number] 2.16.840.1.688649.3.579.2.173 1978 Unknown [id number] 2.16.840.1.518283.3.579.2.173 1978 Unknown [id number] 2.16.840.1.555353.3.579.2.594 1978 Unknown [id number] 2.16.840.1.363995.3.579.2.174 1978 Unknown [id number] 2.16.840.1.385443.3.579.2.174 1978 Unknown [id number] 2.16.840.1.654834.3.579.2.174 1978 Unknown [id number] 2.16.840.1.039916.3.579.2.174 1978 Unknown [id number] 2.16.840.1.221196.3.579.2.174 1959 Unknown [id number] 1.2.840.631568.1.13.239.2.7.3.67 [id number] 1959 Unknown [id number] 1.2.840.609200.1.13.239.2.7.3.67 [id number] Unknown [id number] ODJFS W [employer] [id number] Unknown [id number] 2.16.840.1.191892.3.579.2.531 Social History Date Type Detail Facility Start: 01-24-2021 End: 03-26-2023 Tobacco smoking status NHIS Current every day smoker [employer] Phone: History of tobacco use Cigarette Smoker [facility] Start: 01-24-2021 End: 04-15-2023 Cigarettes smoked current (pack per day) - Reported [employer] Start: 01-24-2021 End: 03-26-2023 Tobacco use and exposure Never used [employer] Start: 01-24-2021 End: 04-27-2023 Alcohol intake Current non-drinker of alcohol (finding) [employer] Phone: Start: 1980 Sex Assigned At Not on file [facility] Phone: Start: 08-24-2021 End: 09-04-2021 Exposure to SARS-CoV-2 (event) Not sure [employer] Phone: Start: 01-21-2022 Tobacco smoking status Heavy t obacco smoker (finding) [facility] Tobacco smoking status Never [facility] Start: 04-15-2023 End: 04-27-2023 Sex Assigned At Female [facility] Start: 08-12-2024 End: 08-30-2024 Sex Female (finding) [facility] Start: 1980 Sex Assigned At Female [facility] Functional Status Date Assessment Result Facility 01-21-2022 Functional Status N/A [facility] Clinical Notes 01-22-2022 to 08-29-2024 Note Date & Type Note Facility 08-29-2024 Radiology Diagnostic study note [facility] [place] [address] [place] [address] CT Scan Report Signed Patient: Nahum Guzman MR#: [id number] : 1980 Acct:[id number] Age/Sex: 43 / F ADM Date: 5 Loc: CT Room: Type: [facility] Attending Dr: oJhn Moreno MD Copies to: John Moreno MD~ Ordering Provider: John Moreno MD Date of Service: 08/29/24 CT/CT chest w con: R93.89 CT CHEST WITH INTRAVENOUS CONTRAST: CLINICAL HISTORY: Follow-up abnormal right heart border on chest x-ray COMPARISON: 08/11/2024 TECHNIQUE: Spiral images were obtained through the chest following intravenous administration of 90 mL of Isovue-300. Images were reviewed using both narrow and wide window settings. This CT exam was performed using one or more following dose reduction techniques: Automated exposure control, adjustment of the mA and/or kV according to patient size, or use of iterative reconstruction technique. FINDINGS: The heart is not enlarged. There is an elongate hypodense area whichextends from the anterior mediastinum down to the right pericardial region measuring approximately 9.8 x 4.6 x 3.7 cm in size. Hounsfield measurements suggest this is fluid. It might be a pericardial cyst. It would correlate withthe area of concern on chest x-ray. No aortic aneurysm or dissection is seen. There is no mediastinal or hilar lymphadenopathy. There are couple nodular asymmetries at the superior medial left breast measuring up to 13 mm. Patient has no previous breast imaging at this facility. There are tiny endplate spurs. There is no consolidation, pleural effusion or discrete soft tissue nodules. Nopneumothorax is seen. Limited cuts through the upper abdomen show prior cholecystectomy. There is a 12 mm left adrenal nodule. There is might be an adenoma. CT/CT chest w con IMPRESSION: SUSPECTED RIGHT PERICARDIAL CYST WHICH CORRELATES WITH THE AREA OF CONCERN ON PRIOR CHEST X-RAY. FOLLOW-UP COULD BE OBTAINED TO ASSESS STABILITY. NO OTHER ACUTE PULMONARY FINDINGS. INCIDENTAL LEFT BREAST NODULARITY. IF NOT RECENTLY PERFORMED ELSEWHERE, FOLLOW-UP WITH MAMMOGRAM AND/OR ULTRASOUND COULD BE PERFORMED. Impression dictated by: Rosa Jones M.D.08/29/2024 10:23 AM Dictation Location: RADIO-PC-23 Transcribed By: LISA 08/29/24 1023 Dictated By: Rosa Jones MD 08/29/24 1001 Signed By: 08/29/24 1023 [facility] Work Phone: 10-05-2023 Note I called pt and left a voice mail message re: her missed appt with Dr. Gifford on 10/01/23. I left my phone # and asked her to call me back if she'd like to re-schedule that appt. [facility] 07-14-2023 Note Attestation signed by Linda [...] personal documentation from me. Linda Pastrana MD Air Traffic Coordinator [facility]:.[phone] HEMATOLOGY / ONCOLOGY [facility] Initial Consultation Note Patient Name: [...] History: Diagnosis Date Anemia Asthma Crohn's disease (CMS/HCC) Dumping syndrome PCOS (polycystic ovarian syndrome) Rheumatoid [...] in no a (more content not included)... [facility] 02-18-2022 Note OPERATIVE NOTE OPERATION DATE: [...] good condition. CC: John Moreno M.D. [facility] 01-22-2022 Note Chief Complaint consultation for bloody [...] Shoulder impingement syndrom (more content not included)... [facility] Comment on above: Result Comment: Elec tronically Signed By: GROVER HUNTER, Gregg Sidhu\Date and Time Signed: 01/22/22 08:44 EDT Evaluation + Plan note No data available for this section General Surgery [employer] Evaluation note Diagnosis Contusion of head, unspecified part of head, initial encounter documented in this encounter [employer] Phone: [email or web address] note* Diagnosis Contusion of head, unspecified part of head, initial encounter documented in this encounter [employer] Phone: [email or web address] note* Diagnosis Nausea and vomiting, intractability of vomiting not specified, unspecified vomiting type- Primary Diarrhea, unspecified type Shortness of breath documented in this encounter [employer] Phone: [email or web address] note* Diagnosis Shortness of breath- Primary Moderate persistent asthma with exacerbation Unspecified asthma, with exacerbation Dehydration Diarrhea, unspecified type Exacerbation of Crohn's disease with complication (HCC) documented in this encounter [employer] Phone: [email or web address] note* Diagnosis Abnormal finding on breast imaging Other (abnormal) findings on radiological examination of breast documented [facility] this encounter [facility] assessment information available [facility] Work Phone: Hospital Discharge instructions* Attachments The following attachments cannot be sent through Care Everywhere. * Clear Liquid Diet: General Info ([place]ozambican) [facility] Phone: Hospital Discharge instructions* Attachments The following attachments cannot be sent through Care Everywhere. 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 ACP-Advance Directive ACP-Power of [employer]yclable [employer] Sorter Advance Directive Response Recorded Date/ Time Advance Directives No August 25 9:09am Reason for Referral Status Reason Specialty Diagnoses / Procedures Referre d By Contact Referred To Contact Closed Radiology Diagnoses Contusion of head, unspecified part of head, initial encounter Procedures CT HEAD WO CONTRAST Joan Landrum, MANUFACTURER AGENT - PHARMACEUTICAL SALES REPRESENTATIVE [address] [address] [facility] [address] [place] [address] Specialty Diagnoses / Procedures Referred By Mable t Referred To Contact Diagnoses Abnormal finding on breast imaging Procedures BREAST IMAGING SECOND OPINION READING Jeanette Calabrese, MANUFACTURER AGENT-FREIGHT SORTER [address] [facility] [address] [place] [address] Referral ID Status Reason Start Date Expiration Date V isits Requested Visits Authorized [id number] New Request 05/04/2023 05/28/2024 1 1 Summary Purpose Family History No Family History Records FoundNo Family History Records FoundNo Family History Records FoundNo Family History Records FoundNo Family History Records FoundNo Family History Records FoundNo Family History Records FoundNo Family History Records Found Chief Complaint and Reason for Visit Chief Complaint Admit Date Pre-Emp CXR August 11, 2024 2:23pm Chief Complaint Admit Date Pre-Emp CXR August 11, 2024 2:23pm R93.89 August 29, 2024 7:1 7am Additional Source Comments Reason for Visit (unrecogniz ed section and content) Status Reason Specialty Diagnoses / Procedures Referre d By Contact Referred To Contact Closed Radiology Diagnoses Contusion of head, unspecified part of head, initial encounter Procedures CT HEAD WO CONTRAST Joan Landrum, MANUFACTURER AGENT - PHARMACEUTICAL SALES REPRESENTATIVE [address] [address] [facility] [address] [place] [address] Status Reason Specialty Diagnoses / Procedures Referre d By Contact Referred To Contact Open Radiology Diagnoses Contusion of unspecified part of head, initial encounter Procedures XR CERVICAL SPINE (4-5 VIEWS) [id number] Joan Landrum, MANUFACTURER AGENT - PHARMACEUTICAL SALES REPRESENTATIVE [address] [facility] [address] [place] [address] [facility] [address] [place] [address] Reason Comments Abdominal Pain pt reports woke up a round 3 am with chest pain, shortness of breath, nausea vomitting and diarrhea. Shortness of Breath Nausea Reason Comments Shortness of Breath increased sob Specialty Diagnoses / Procedures Referred By Mable t Referred To Contact Diagnoses Abnormal finding on breast imaging Procedures BREAST IMAGING SECOND OPINION READING Jeanette Calabrese, MANUFACTURER AGENT-FREIGHT SORTER [address] [place] [address] Referral ID Status Reason Start Date Expiration Date V isits Requested Visits Authorized [id number] New Request 05/04/2023 05/28/2024 1 1 Scheduled Active and Recently Administ ered Medications (unrecognized section and content) Medication Order 09/01/2021 09/02/2021 09/03/2021 0.9 % sodium chloride bolus (COMPLETED) 1,000 mL (16.9 mL/kg), IntraVENous, at 983.6 mL/hr, Administer over 61 Minutes, ONCE, On Wed09/03/21 at 1630, For 1 dose 1635 (New Bag - Prov ider: Amalia Perez RN)1737 (Stopped - Provider: Anay Fernández RN) [...] 0800, For 1 dose, For IV Hydration 08 (New Bag - Prov ider: Neelima Ruiz RN)09 (Stopped - Provider: Neelima Ruiz RN) ketorolac [...] not administer for more than 5 days. 08 (Given - Provid er: Neelima Ruiz RN) [...] Care Teams (unrecognized sec tion and content) [facility] Relationship Specialty Start Date End Date John Moreno MD [address] [place] [id number] PCP - General 10/13/12 [facility] [employer] Relationship Specialty [place] [address] [place] [id number] PCP - General 10/13/12 [facility] [employer] Relationship Specialty Start Date End Date John Moreno MD [address] [place] [id number] PCP - General Family Medicine 04/30/23 Quynh Hughes CNM [address] [place] [address] [place] [address] Certified Nurse Adjunct Physical Education Instructor 04/30/23 [facility] Relationship Specialty Start Date End Date John Moreno MD [address] [place] [id number] PCP - General 10/13/12 Team Status: Inactive Member Role Status Dates Sergo Hummel - [facility] , DO [facility] Attending Provider Active Start: August 11, 2024 End: August 11, 2024 Team Status: Active Member Role Status Dates John Moreno MD Primary Care Provider Active Team Status: Inactive Member Role Status Dates John Moreno MD Primary Care Provide r, Attending Provider Active Start: August 29, 2024 End: August 29, 2024 Ordered Prescriptions (unrec ognized section and content) Prescription Sig Dispensed Refills Start Date End Da te ondansetron (ZOFRAN ODT) 4 MG disintegrating tablet Take 1 tablet by mouth every 8 hours as needed for Nausea or Vomiting 10 tablet 0 09/04/2021 INFORMATION SOURCE (unrecogn ized section and content) DATE CREATED AUTHOR 02/24/2022 Inocente Wan [facility] DATE CREATED AUTHOR AUTHOR'S ORGANIZ ATION 09/27/2022 [facility] DATE CREATED AUTHOR AUTHOR'S ORGANIZ ATION 03/31/2023 [facility] DATE CREATED AUTHOR AUTHOR'S ORGANIZ ATION 05/06/2023 [facility] DATE CREATED AUTHOR AUTHOR'S ORGANIZ ATION 07/04/2023 [facility] DATE CREATED AUTHOR AUTHOR'S ORGANIZ ATION 10/06/2023 [facility] DATE CREATED AUTHOR AUTHOR'S ORGANIZ ATION 01/08/2024 [facility] DATE CREATED AUTHOR AUTHOR'S ORGANIZ ATION 09/02/2024 [facility] ysician Group Goals (unrecognized section and content) Goals may be documented in a n alternate section FOR RECORDS PERTAINING TO PATIENTS WHO ARE [...] BE BASED ON THE PRIMARY CLINICAL RECORDS. [facility] [employer] provides no warranty or guarantee of the accuracy or completeness of information in this document.
--- NOTE | 2024-09-27 08:00 | CA_ITS ---
Patient Name: NAHUM SEGOVIA MR#: [id number] : 1980 Exam Date: 09/27/2024 Ordering Doctor: DR Abhay Moreno . ECHOCARDIOGRAM REPORT PROCEDURE: CA ECHO DOPPLER COMPLETE INDICATIONS: Cardiac aneurysm, smoker COMPARISON: None. DESCRIPTION: COMPLETE ECHOCARDIOGRAM Real-time transthoracic echocardiography with 2D, M-mode, spectral and color flow Doppler performed. QUALITY: Technical quality was good. LEFT VENTRICLE: Normal chamber size. Normal left ventricular wall thickness. Global hypokinesis. LV EF: Severely reduced left ventricular systolic function, ejection fraction, visually 25% DIASTOLIC: Grade 1 diastolic dysfunction ATRIAL SEPTUM: Visually appears intact. LEFT ATRIUM: Normal chamber size. RIGHT ATRIUM: Normal chamber size. RIGHT VENTRICLE: Normal chamber size. Normal right ventricular systolic function. TRICUSPID VALVE: Normal mobility and thickness. No stenosis with trivial regurgitation. No evidence of pulmonary hypertension.RVSP 18 mmHg MITRAL VALVE: Normal mobility and thickness. No evidence of mitral valve stenosis. There is no mitral annular calcification. Trivial mitral regurgitation. AORTIC VALVE: Normal trileaflet appearance. No visible sclerosis. Normal leaflet mobility. No evidence of aortic valve stenosis. Trivial aortic regurgitation. AORTIC ROOT: Normal diameter and appearance. PULMONIC VALVE: Normal thickness and mobility. No stenosis. No regurgitation. PERICARDIUM: Free space seen along right atrium may represent pericardial cyst or localized pericardial effusion consistent with CT scan done at [facility] [place] 08/29/2024. IVC: Collapes with inspirations. IVC is normal in size. PLEURA: CONCLUSION: Severely reduced LV systolic function in global fashion, EF 25 % Grade I diastolic dysfunction Trivial aortic regurgitation Free space seen along right atrium may represent pericardial cyst or localized pericardial effusion C/W abnormality noted on Chest CT done08/29/2024 Adult Echocardiography Procedure Report Left Ventricle LVEDD (3.7 - 5.6 cm): 4.82 cm LVESD (2.2 - 4.0 cm): 4.04 cm LVIVS thickness (0.6 - 1.2 cm): 0.78 cm LVPW thickness (0.5 - 1.0 cm): 0.71 cm e': 0.11 m/s E - e': 4.69 LVOT Max Gradient: 2.62 mm[Hg] LVOT Area (cm2): 0.81 m/s Peak Velocity (LVOT): 0.81 m/s Mean Velocity (LVOT): 0.52 m/s LVOT Diameter 2.30 cm Left Atrium LA Volume Index (2D A2C): 21.65 ml/m2 Left Atrium Systolic Dimension: 2.77 cm Mitral Valve MV E to A Ratio: 0.94 Mitral Valve A-Wave Peak Velocity: 0.56 m/s Mitral Valve E-Wave Peak Velocity: 0.53 m/s Right Ventricle Aorta AO Root Diam: 3.05 cm Aortic Valve AoV Area (Peak Marquise): 2.33 cm2, 2.33 cm2 AoV Area (VTI): 2.34 cm2, 2.34 cm2 Peak Velocity(Antegrade Flow): 1.45 m/s, 1.39 m/s Peak Gradient(Antegrade Flow): 8.38 mm[Hg], 7.74 mm[Hg] Mean Velocity(Antegrade Flow): 0.99 m/s, 0.95 m/s Mean Gradient(Antegrade Flow): 4.50 mm[Hg], 4.15 mm[Hg] Velocity Time Integral: 28.06 cm, 25.89 cm Tricuspid Valve Peak Velocity (Regurgitant Flow): 1.91 m/s Pulmonic Valve Mean Gradient: 1.38 mm[Hg] Mean Velocity: 0.55 m/s Peak Velocity: 0.82 m/s, 0.90 m/s Peak Gradient: 3.21 mm[Hg], 2.72 mm[Hg] Right Atrium Dictated by: Lai Chong MD on 09/27/2024 at 12:59 Approved by: Lai Chong MD on 09/27/2024 at 14:59
== END 2024-09-27 07:39 | disposition home or self-care (01) ==
PROVIDERS: PCP Family Medicine; Visit Provider Family Medicine
DX: I25.3 Aneurysm of heart (principal); R94.31 Abnormal electrocardiogram [ECG] [EKG]
CPT/HCPCS: 93306

== ENCOUNTER 2024-10-02 10:44 | Outpatient (OUT) | payer BC, SELFPAY ==
--- OUTSIDE RECORDS SUMMARY | 2024-10-02 11:06 | XMS_ITS | CCD ---
Author Organization [facility] Care Team Providers Care Starch Crab Name Role Phone John Moreno MD Primary Care Provider [phone] John Moreno Primary Care Physician [phone] Gregg PICKERING Attending Unavailable John Griffin Referring Unavailabl e Gregg PICKERING Attending Unavailable HOY ., DR LOPEZ Admitting Unavailable HOY ., DR LOPEZ Attending Unavailable HOY ., DR LOPEZ Primary Care Unavailable HOY ., DR LOPEZ Consulting Unavailable BRANDEIS, DR RONNIE Fierro Consulting Unavailable HOY ., [...] Consulting Unavailable SEMAJ MCGOVERN Consulting Unavailable MARLONMERRILL DIXON Consulting Unava ilable JESICAY ., DR LOPEZ Admitting Unavailable HOY ., DR LOPEZ Attending Unavailable HOY ., DR LOPEZ Primary Care Unavailable NILL ., DR ESCOBEDO Admitting Unavailable NILL ., DR ESCOBEDO Attending Unavailable HOY ., DR LOPEZ Primary Care Unavailable NILL ., DR ESCOBEDO Consulting Unavailable JOHN MORENO Primary Care Unavailable CAROL ALVES Referring Unavailable POOL, QUYNH E Referring Unavailable JOHN MORENO Primary Care Unavailable CAROL ALVES Referring Unavailable JOHN MORENO Primary Care Unavailable John Moreno MD Primary Care Provider [phone] Quynh Bishop CNM Unavailable JEANETTE CALABRESE Referring Unavailable JEANETTE CALABRESE Attending Unavailable HOY, JOHN M Primary Care Unavailable [...] Unavailable John Moreno MD Primary Care Provider [phone] [facility] Attending Provider [facility] Attending Provider John Moreno MD Primary Care Provider [phone] John Moreno MD Attending Provider [phone] [facility] Ad[facility]available [facility] Attending Unavailable John Moreno Attending Unavailable Josh, John Abarca Admitting Unavailable Hoy, John M Primary Care Unavailable SARAH FIELDS Attending Unavailable Allergies Allergy Classification Reported Allergen(s) Allergy Type Date of Onset Reaction(s) Facility Adhesive Tape (3 sources) Adhesive Tape Substance Allergy 3 [facility] Latex (3 sources) Latex Substance Allergy 3 [facility] NSAIDs (3 sources) Ibuprofen Drug Allergy 3 [facility] Penicillins (antibiotic) (3 sources) Penicillins Drug Allergy 3 [facility] (7 sources) Adhesive Tape; Translations: [Adhesive tape] Propensity to adverse reactions to drug 5 skin irritation [facility] (4 sources) Desonide; Translations: [DESONIDE] Drug Allergy 5 Other (See Comments) [facility] (5 sources) Ibuprofen; Translations: [IBUPROFEN] Drug Allergy 3 Other (See Comments) [facility] (7 sources) Latex; Translations: [Latex] Propensity to adverse reactions to drug 3 Other (See Comments), Weal (disorder) [employer] Work Phone: (8 sources) Penicillins; Translations: [Penicillins] Propensity to adverse reactions to drug 5 Rash [employer] Work Phone: (3 sources) predniSONE; Translations: [PREDNISONE] Drug Allergy 6 Swelling [employer] Work Phone: (4 sources) Cephalexin; Translations: [cephalexin] Drug Allergy 3 Unknown (qualifier value), Nausea And Vomiting [facility] (2 sources) Penicillin; Translations: [penicillin] Drug Allergy Anaphylaxis (disorder) [facility] (1 source) Cephalexin Drug Allergy [facility] Rep[facility] (2 sources) Ibuprofen Drug Allergy 5 [facility] (2 sources) Latex Drug allergy (disorder) 5 [facility] (2 sources) predniSONE Drug Allergy 6 [facility] (2 sources) Morphine; Translations: [MORPHINE] Drug Allergy 3 Other (See Comments) [facility] (2 sources) fentaNYL; Translations: [fentanyl] Drug Allergy 5 Anaphylaxis [facility] (1 source) Ibuprofen Drug Allergy 5 [facility] (1 source) Latex Drug allergy (disorder) 5 [facility] (1 source) Adhesive agent; Translations: [ADHESIVE] Propensity to adverse reactions to drug (disorder) 3 [facility] Repository Medications Current Medications Medication Drug Class(es) [...] [Moderate persistent asthma with (acute) exacerbation] Chronic Cardiac and circulatory congenital anomalies (2 sources) Other specified congenital malformations of heart; Translations: [Other specified congenital malformations of heart] Onset: 5 Chronic Congestive heart failure; nonhypertensive (2 sources) Acute systolic (congestive) heart failure; Translations: [Acute systolic (congestive) heart failure] Onset: 5 Chronic Esophageal disorders (2 sources) Gastroesophageal reflux [...] of unspecified breast] Onset: 3 01-16-2022 Chronic Other female genital disorders (1 source) Other specified noninflammatory disorders of vagina; Translations: [Other specified noninflammatory disorders of vagina] Onset: 3 Episodic Other gastrointestinal disorders (3 sources) Diarrhea; Translations: [Diarrhea, unspecified] Onset: 2 Episodic Other gastrointestinal disorders (1 source) History of gastritis 01-16-2022 Episodic Other lower respiratory disease (3 sources) Dyspnea; Translations: [Shortness of breath] Onset: 5 Episodic Other lower respiratory disease (1 source) Shortness of breath; Translations: [Shortness of breath] Onset: 5 Episodic Other screening for suspected conditions (not mental disorders or infectious disease) (1 source) Abnormal findings on diagnostic imaging of other specified body structures; Translations: [Abnormal findings on diagnostic imaging of other specified body structures] Onset: 5 Chronic Other screening for suspected conditions (not mental disorders or infectious disease) (7 sources) Abnormal findings on diagnostic imaging of breast; Translations: [Other abnormal and inconclusive findings on diagnostic imaging of breast] Onset: 3 05-04-2023 Episodic Regional enteritis and ulcerative colitis (1 source) Crohn's disease; Translations: [Crohn's disease, unspecified, with unspecified complications] Chronic Residual codes; unclassified (1 source) Tobacco user; Translations: [Tobacco use] Onset: 2 Episodic Screening and history of mental health [...] in bowel habit] Onset: 02-20-2022 04-15-2023 Episodic Residual codes; unclassified (1 source) Acquired [...] Test Name Value Interpretation Reference Range Facility Office Visiton 09-29-2024 Follow-up visit [id number] Mick Roberts 1980 F Date Provider Department Center 09/29/2024 MEERA SARAH SUPRIYA [place] Family History Problem Relation Age of Onset Other Mother Diabetes Mother Mitral valve prolapse Mother Hypertension Mother Colon cancer Maternal Grandfather Heart attack Maternal Grandfather Brain Aneurysm Maternal Grandfather Family Status - Relation Status Age at Mother Maternal Grandfather Paternal Grandfather Level of Service:87223 IA OFFICE/OP CONSLTJ NEW/EST PT HIGH MDM 55 MINUTES Normal [facility] CT chest w conon 08-29-2024 CT chest w [facility] [place] [address] CT Scan Report Signed Patient: Nahum Guzman MR# : [id number] : 1980 Acct:[id number] Age/Sex: 43 / F ADM Date: 08/29/24 Loc: CT Room: Type: [facility] Attending Dr: John Moreno MD Copies to: [...] Rosa Jones M.D.08/29/2024 10:23 AM Dictation Location: [place] [address] Transcribed By: LISA 08/29/24 1023 Dictated By: Rosa Jones MD 08/29/24 1001 Signed By: 08/29/24 1023 Normal [facility] X-ray reportOrdered By: Duke Beckwith on 08-11-2024 Study report [facility] Main [place] [address] [place] [address] XRay Report Signed Patient: Nahum Guzman MR#: [id number] : 1980 Acct:[id number] Age/Sex: 43 / F ADM Date: 5 Loc: CO Room: Type: [facility] REF Attending Dr: Sergo Hummel - [facility] Copies to: Sergo Hummel DO~ Ordering Provider: [...] DO 08/11/24 1557 Signed By: 08/11/24 1558 [facility] XR chest 2V*on 08-11-2024 XR chest 2V* [facility] [place] [address] [place] [address] XRay Report Signed Patient: Nahum Guzman MR# : [id number] : 1980 Acct:[id number] Age/Sex: 43 / F ADM Date: 08/11/24 Loc: [place] Room: Type: [facility] Attending Dr: Sergo Hummel - [facility] , [facility] Copies to: Sergo Hummel DO Ordering Provider: [...] RECOMMENDED. Impression dictated by: Mina Beckwith Jr., D.O.08/11/2024 3:58 PM Dictation Location: RADIO-PC-22 Transcribed By: LISA 08/11/24 1558 Dictated By: Mina Beckwith Jr, DO 08/11/24 1557 Signed By: 08/11/24 1558 Normal [facility] XR CHEST (2 VW)on 01-05-2024 XR CHEST (2 VW) EXAM: XR CHEST (2 VW ) HISTORY: Exposure to TB COMPARISON: CT chest, Natasha, 09/04/2021, chest x-ray 09/04/2021. IMPRESSION: FINDINGS/IMPRESSION: 1. 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 2. Normal-sized heart. 3. Lungs clear. 4. No tuberculous change/cavitation/conso lidation. Interpreted by: Rajat Kiran Jr., MD Signed by: Rajat Kiran Jr., MD 01/05/24 Final result Normal [facility] Orders Onlyon 07-01-2023 Orders Only [id number] Nahum Roberts 1980 F Date Provider Department Center 07/01/2023 [id number], HISTORICAL DCC ONC DCC No family history on file Normal [facility] BREAST IMAGING SECOND OPINIO N READINGon 05-05-2023 [...] that appears stable from prior exam in 2013. There is a oval-shaped mass with calcifications [...] ultrasound is recommended for further evaluation. Normal [facility] JODEE ZORAIDA DIGITAL DIAGNOSTIC UNILATERAL RIGHTon 04-27-2023 JODEE [...] Kiran Jr., MD 04/27/23 Final result Normal [facility] US BREAST LIMITED LEFTon US BREAST LIMITED LEFT EXAM: [facility] ZORAIDA DIGITAL DIAGNOSTIC UNILATERAL RIGHT, US BREAST [...] Kiran Jr., MD 04/27/23 Final result Normal [facility] US BREAST LIMITED RIGHTon US BREAST LIMITED RIGHT EXAM: [facility] ZORAIDA DIGITAL DIAGNOSTIC UNILATERAL RIGHT, US BREAST [...] Kiran Jr., MD 04/27/23 Final result Normal [facility] Chlamydia/GC DNA, Uron 03-30 Chlamydia Probe, Ur Negative Normal NEG [facility] Comment on above: Result Comment: [...] target. Performed By: #### U CGP #### [employer] [address] [place], [place] [id number] Director Inbound Sales: Bjorn Balderas MD Gonorrhea Probe, Ur Negative Normal NEG [facility] Comment on above: Result Comment: [...] target. Performed By: #### U CGP #### [employer] [facility] [place], [place] [id number] Director Inbound Sales: Bjorn Balderas MD JODEE ZORAIDA DIGITAL SCREEN HANK Geronimo 03-30-2023 JODEE ZORAIDA DIGITAL SCREEN BILATERAL HISTORY: Screening. Patient presented complaining of bilateral breast lumpiness. TECHNIQUE: Bilateral digital screening mammogram with CAD. Digital breast tomosynthesis images. [place] skin markers were placed over both upper [...] MD 03/30/23 Edited Result - FINAL Normal [facility] Chlamydia/GC DNA, TPon 03-01 Chlamydia Probe, TP Negative Normal NEG [facility] Comment on above: Result Comment: [...] target. Performed By: #### C YTCGP #### [employer] [address] [place] [id number] Director Inbound Sales: Bjorn Balderas MD Gonorrhea Probe, TP POSITIVE: NEISSERIA GONORRHOEAE DNA detected by nucleic acid amplification. Abnormal NEG [facility] Comment on above: Result Comment: [...] Department Performed By: #### C YTCGP #### [employer] [address] [place] [address] Director Inbound Sales: Bjorn Balderas MD Cult,Genitalon 03-01-2023 Cult,Genital Specimen Description .VAGINA Culture NORMAL URO-GENITAL YESSI NEISSERIA GONORRHOEAE LIGHT GROWTH Results reported to the appropriate Health Department NEGATIVE FOR GROUP B STREPTOCOCCI Report Status FINAL 03/01/2023 [facility] Comment on above: Performed By: #### G EC #### [place] [address] [place], [place] [id number] Director Inbound Sales: Bjorn Balderas MD [facility] [address] [address] Director Inbound Sales: Ronnie Mayo MD Cytology Reporton 02-26-2023 Cytology report Cyto stain.thin prep Doc (Cvx/Vag) (NOTE) Path Number: [id number] DIAGNOSIS Imaged ThinPrep Pap - Cervical (1 monolayer slide): Specimen Adequacy: Satisfactory for evaluation. - Endocervical/transforma tion zone component present. Descriptive Diagnosis: Negative for intraepithelial lesion or malignancy. Comments: Specimen was screened at [facility], [address] [place] [address] [employer] Screener: KUNAL Electronically Signed Out PARMINDER Jung(ASCP) cs/03/06/2023 Source of Specimen: A: Imaged ThinPrep Pap - Cervical (1 monolayer slide) HPV Reflex?................ ......HPV if Abnormal Clinical History Endometrial ablation Tubal ligation High risk HPV DNA testing is requested if the diagnosis is abnormal Z01.419 Routine patient scheduling coordinator exam without abnormal findings Processing Lab: [address] [address] [place] [address] This Pap Test has been evaluated with [...] smear result. GYNECOLOGIC CYTOLOGY REPORT Patient Name: MICK ROBERTSHEIDI Cardona [facility] Rec: [id number] [facility] ANATOMIC PATHOLOGY [address] [facility] [place], [place] [address] Normal [facility] CULTURE URINEon 09-21-2022 CULTURE URINE Culture Observations : LIGHT GROWTH OF MIXED GENITAL YESSI. NO POTENTIAL PATHOGENS SEEN. Normal [facility] Comment on above: Performed By: #### U RCX #### [facility] [address] [place] [address] [address] Christopher Rivera UA RANDOM W/MICROSCOPICon BACTERIA TRACE Abnormal NONE SEEN [facility] Comment on above: Performed By: #### U AMIC #### [facility] [address] [place] [address] Dr. Christopher Rivera Bilirubin Ql (U) Negative Normal NEGATIVE [facility] Comment on above: Performed By: #### U AMIC #### [facility] [address] [place] [address] [address] Christopher Rivera CAST NONE SEEN Normal NONE SEEN [facility] Comment on above: Performed By: #### U AMIC #### [facility] [address] [place] [address] Dr. Christopher Rivera Clarity (U) CLEAR Normal CLEAR [facility] Comment on above: Performed By: #### U AMIC #### [facility] [address] [place] [address] [address] Christopher Rivera Color (U) LT. YELLOW Normal YELLOW [facility] Comment on above: Performed By: #### U AMIC #### [facility] [address] [place] [address] Dr. Christopher Rivera Crystals LM Nom (Urine sed) NONE SEEN Normal NONE SEEN [facility] Comment on above: Performed By: #### U AMIC #### [facility] [address] [place] [address] Dr. Christopher Rivera Epithelial cells LM Ql (Urine sed) FEW Abnormal NONE SEEN /RARE [facility] Comment on above: Performed By: #### U AMIC #### [facility] [address] [place] [address] [address] Christopher Rivera Glucose Ql (U) Negative Normal NEGATIVE [facility] Comment on above: Performed By: #### U AMIC #### [facility] [address] [place] [address] Dr. Christopher Rivera Hemoglobin Ql (U) TRACE-INTACT Abnormal NEGATIVE [facility] Comment on above: Performed By: #### U AMIC #### [facility] [address] [place] [address] [address] Christopher Rivera Ketones Ql (U) Negative Normal NEGATIVE [facility] Comment on above: Performed By: #### U AMIC #### [facility] [address] [place] [address] [address] Christopher Rivera LEUKOCYTES Negative Normal NEGATIVE [facility] Comment on above: Performed By: #### U AMIC #### [facility] [address] [place] [address] [address] Christopher Rivera MUCOUS NONE SEEN Normal NONE SEEN [facility] Comment on above: Performed By: #### U AMIC #### [facility] [address] [place] [address] Dr. Christopher Rivera Nitrite Ql (U) Negative Normal NEGATIVE [facility] Comment on above: Performed By: #### U AMIC #### [facility] [address] [place] [address] Dr. Christopher Rivera pH (U) 5.5 [pH] Normal 5-9 [facility] Comment on above: Performed By: #### U AMIC #### [facility] [address] [place] [address] [address] Christopher Rivera RBC 0-2 Normal 0-2 [facility] Comment on above: Performed By: #### U AMIC #### [facility] [address] [place] [address] Dr. Christopher Rivera SPEC GRAVITY <=1.005 Abnormal 1.005-<=1.025 [facility] Comment on above: Performed By: #### U AMIC #### [facility] [address] [place] [address] Dr. Christopher Rivera UA PROTEIN Negative Normal NEGATIVE/ TRACE [facility] Comment on above: Performed By: #### U AMIC #### [facility] [address] [place] [address] Dr. Christopher Rivera Urobilinogen Qn (U) 0.2 {Allyssa'U}/dL Normal 0.2 - 1. 0 [facility] Comment on above: Performed By: #### U AMIC #### [facility] [address] [place], [place] [address] Dr. Christopher Rivera WBC NONE SEEN Normal NONE SEEN [facility] Comment on above: Performed By: #### U AMIC #### [facility] [address] [place], [place] [address] Dr. Christopher Rivera US KIDNEYS BLADDERon 09-01-2 [...] by: LAURA SCHRADER Date: 2022-09-01 10:51 Normal [facility] XR KUB 1 VIEWon 08-26-2022 [...] by: RONNIE DUONG Date: 2022-08-26 12:57 Normal [facility] Pathology Noteon 02-20-2022 Pathology Note [id number] CD:127 Normal [facility] Outside Colonoscopyon 2021 Outside Colonoscopy [id number] D:127 Normal [facility] Reminderson 02-19-2022 Reminders - From: Zeny Andujar LPN To: N - Clinical; Sent: 02/19/2022 12:49:40 EDT Show up: 01/19/2032 07:00:00 EDT Subject: colonoscopy recall Due Date/Time: 02/19/2032 07:00:00 EDT Reminder/Recall Patient is due for screening colonoscopy 02/19/2032. Normal [facility] PREG HCG QUALon 02-18-2022 , QUAL Negative Normal NEGATIVE [facility] Comment on above: Performed By: #### P REG #### [facility] [address] [place] [address] Dr. Christopher Rivera Lab Reportson 02-17-2022 Lab Reports [id number] D:127 Normal [facility] Covid-19 PCR (CVDTB)on SARS-CoV-2 (COVID-19) RNA SUNSHINE+probe Ql (Unsp spec) Not detected Normal NOT DETECTED [facility] Comment on above: Result Comment: This test is not yet approved or cleared by the [place] FDA. When there are no FDA-approved or cleared tests available, and other criteria are met, FDA can make tests available under an emergency access mechanism called an Emergency Use Authorization (EUA). The EUA for this test is supported by the R D Manager of Health and Human Service's (HHS's) declaration [...] consistent with SARS-CoV-2. Performed By: #### C [facility] #### [facility] [address] [place] [address] [address] Christopher Rivera Consent for Procedure/Surger yon 01-22-2022 Consent for Procedure/Surgery [id number] D:127 Normal [facility] Ambulatory Visit Summaryon 0 01-21-2022 Ambulatory Visit Summary NAHUM ROBERTS :1980 Visit Date:01/21/2022 Ambulatory Visit Instructions Your Diagnosis Bloody diarrhea Tobacco use Your Care Team Attending Physician - GROVER HUNTER, Gregg Craig Primary Care Physician - Josh HUNTER, John Referring Physician - Josh HUNTER, John Procedures Performed Diagnostic laparoscopy (06/09/2016), Diagnostic laparoscopy [...] impingement syndrome Tobacco use Uterine leiomyoma Normal [facility] CBC with Auto Differentialon 09-04-2021 Absolute Eos # 0.05 [facility] th Absolute Lymph # 1.20 trend.ly He alth Absolute [place] # 0.86 [facility] lt Basophils (Bld) [#/Vol] 0 - 2 % [employer] Basophils Absolute [employer] Eosinophils/100 WBC (Bld) 1 % 0 - 5 % [employer] Hematocrit (Bld) [Volume fraction] 42.8 % 36 - 46 % [employer] Hemoglobin.gastroin testinal spec 1 Ql (Stl) 14.4 g/dL 12.0 - 16.0 g/dL [employer] Interpretation and review of laboratory results Abnormal [employer] Lymphocytes/100 WBC (Bld) 25 % 15 - 40 % [facility] MCH (RBC) [Entitic mass] 31.5 pg 26 - 34 pg [facility] MCHC (RBC) [Mass/Vol] 33.7 g/dL 31 - 37 g/dL [facility] MCV (RBC) [Entitic vol] 93.5 fL 80 - 100 fL [facility] Monocytes/100 WBC (Bld) 18 % High 4 - 8 % [facility] Morphology Vincent (Bld) [Interp] Manual Differential Performed [facility] Platelet distribution width (Bld) [Ratio] 13.3 % 12.1 - 15.2 % [facility] Platelets (Bld) [#/Vol] 227 10*3/uL [facility] RBC (Bld) [#/Vol] 4.57 10*6/uL 4.0 - 5.2 m/uL [facility] Segmented neutrophils/100 WBC (Bld) 56 % 47 - 75 % [facility] Segs Absolute 2.69 [facility] WBC (Bld) [#/Vol] 4.8 10*3/uL [facility] COVID-19, Rapidon 09-04-2021 SARS-CoV-2 (COVID-19) RNA SUNSHINE+probe Ql (Unsp spec) Not detected Not Detected [facility] Comment on above: Rapid NAAT: The [...] management decisions. Fact sheet for Healthcare Providers: https://www.fda.gov/media/778704/download Fact sheet for Patients: https://www.fda.gov/media/521423/download Methodology: Isothermal Nucleic Acid Amplification Specimen Description .NASOPHARYNGEAL SWAB [facility] Comprehensive Metabolic Pane cristina 09-04-2021 Albumin [Mass/Vol] 4.2 g/dL 3.5 - 5.2 g/dL [facility] ALP (Bld) [Catalytic activity/Vol] 87 U/L 35 - 104 U/L [facility] ALT [Catalytic activity/Vol] 17 U/L 5 - 33 U/L [facility] Anion gap [Moles/Vol] 14 mmol/L 9 - 17 mmol/L [facility] AST [Catalytic activity/Vol] 17 U/L <32 [facility] Bilirubin [Mass/Vol] 0.51 mg/dL 0.30 - 1.20 mg/dL [facility] Calcium [Mass/Vol] 9.0 mg/dL 8.6 - 10. 4 mg/dL [facility] Chloride [Moles/Vol] 105 mmol/L 98 - 107 mmol/L [facility] CO2 [Moles/Vol] 18 mmol/L Low 20 - 31 mmol/L [facility] Creatinine [Mass/Vol] 0.64 mg/dL 0.50 - 0.90 mg/dL [facility] Free PSA/Total PSA [Mass fraction] 7.4 g/dL 6.4 - 8.3 g/dL [facility] GFR >60 >60 mL/min [facility] GFR Non- >60 >60 mL/min [facility] GFR/1.73 sq M.predicted MDRD (S/P/Bld) [Vol rate/Area] [facility] Comment on above: Average GFR for 40-4 9 years old: 99 mL/min/1.73sq m Chronic Kidney Disease: <60 mL/min/1.73sq m Kidney failure: <15 mL/min/1.73sq m eGFR calculated using average adult body mass. Additional eGFR calculator available at: http://www.[employer].MEPS Real-Time/multiple_crcl_2012.htm Glucose [Mass/Vol] 105 mg/dL High 70 - 99 mg/dL [facility] Interpretation and review of laboratory results Abnormal [facility] Potassium [Moles/Vol] 4.0 mmol/L 3.7 - 5.3 mmol/L [facility] Sodium [Moles/Vol] 137 mmol/L 135 - 144 mmol/L [facility] Urea nitrogen (BldV) [Mass/Vol] 9 mg/dL 6 - 20 mg/dL [facility] Urea nitrogen/Creatinine (Bld) [Mass ratio] 14 [facility] D-Dimer, Quantitativeon 08-13 D-Dimer, Quant 0.34 [facility] Comment on above: When combined with a [...] more prevalent in patients with distal DVT. [facility] EKG Rhythm Stripon 2 H.Gerardo [facility] Troponinon 09-04-2021 Troponin, High Sensitivity <6 0 - 14 ng/L [facility] Comment on above: High Sensitivity Troponin values cannot be compared with other Troponin methodologies. Patients with high levels of Biotin oral intake (i.e >5mg/day) may have falsely decreased Troponin levels. Samples collected within 8 hours of biotin intake may require additional information for diagnosis. [facility] XR CHEST PORTABLEon 09-05-19 22 No acute [...] lesion. OTHER: Negative. IMPRESSION: No acute disease. [employer] Work Phone: Radiology Study observation (narrative) [employer] Work Phone: XR CHEST PORTABLEOrdered By: Ronnie Duong on 09-04-2021 [employer] Basic Metabolic Panelon 08-13 Anion gap [Moles/Vol] 13 mmol/L 9 - 17 mmol/L [employer] Calcium [Mass/Vol] 9.1 mg/dL 8.6 - 10. 4 mg/dL [employer] Chloride [Moles/Vol] 103 mmol/L 98 - 107 mmol/L [employer] CO2 [Moles/Vol] 18 mmol/L Low 20 - 31 mmol/L [employer] Creatinine [Mass/Vol] 0.64 mg/dL 0.50 - 0.90 mg/dL [employer] GFR >60 >60 mL/min [employer] GFR Non- >60 >60 mL/min [employer] GFR/1.73 sq M.predicted MDRD (S/P/Bld) [Vol rate/Area] [employer] Comment on above: Average GFR for 40-4 9 years old: 99 mL/min/1.73sq m Chronic Kidney Disease: <60 mL/min/1.73sq m Kidney failure: <15 mL/min/1.73sq m eGFR calculated using average adult body mass. Additional eGFR calculator available at: http://www.[employer].MEPS Real-Time/multiple_crcl_2011.htm Glucose [Mass/Vol] 100 mg/dL High 70 - 99 mg/dL [facility] Interpretation and review of laboratory results Abnormal [facility] Potassium [Moles/Vol] 4.2 mmol/L 3.7 - 5.3 mmol/L [facility] Sodium [Moles/Vol] 134 mmol/L Low 135 - 144 mmol/L [facility] Urea nitrogen (BldV) [Mass/Vol] 9 mg/dL 6 - 20 mg/dL [facility] Urea nitrogen/Creatinine (Bld) [Mass ratio] 14 [facility] CBC with Auto Differentialon 09-03-2021 Absolute Eos # 0.10 [facility] th Absolute Lymph # 0.90 Low [facility] He alth Absolute [place] # 0.70 [facility] Basophils (Bld) [#/Vol] 0.00 10*3/uL [facility] Basophils/100 WBC (Bld) 1 % 0 - 2 % [facility] Differential Type YES [facility] ealth Eosinophils/100 WBC (Bld) 1 % 0 - 5 % [facility] Hematocrit (Bld) [Volume fraction] 43.4 % 36 - 46 % [facility] Hemoglobin.gastroin testinal spec 1 Ql (Stl) 14.6 g/dL 12.0 - 16.0 g/dL [facility] Interpretation and review of laboratory results Abnormal [facility] Lymphocytes/100 WBC (Bld) 14 % Low 15 - 40 % [facility] MCH (RBC) [Entitic mass] 31.7 pg 26 - 34 pg [facility] MCHC (RBC) [Mass/Vol] 33.8 g/dL 31 - 37 g/dL [facility] MCV (RBC) [Entitic vol] 93.9 fL 80 - 100 fL [facility] Monocytes/100 WBC (Bld) 11 % High 4 - 8 % [facility] Platelet distribution width (Bld) [Ratio] 13.1 % 12.1 - 15.2 % [facility] Platelets (Bld) [#/Vol] 236 10*3/uL [facility] RBC (Bld) [#/Vol] 4.62 10*6/uL 4.0 - 5.2 m/uL [facility] Segmented neutrophils/100 WBC (Bld) 73 % 47 - 75 % [facility] Segs Absolute 4.70 [facility] WBC (Bld) [#/Vol] 6.3 10*3/uL [facility] D-Dimer, Quantitativeon 08-13 D-Dimer, Quant 0.34 [facility] Comment on above: When combined with a [...] more prevalent in patients with distal DVT. [facility] EKG Rhythm Stripon [facility] Microscopic Urinalysison - [facility] Epithelial Cells UA 0 TO 2 /HPF [facility] RBC, UA 2 TO 5 [facility] Troponinon 09-03-2021 Troponin, High Sensitivity <6 0 - 14 ng/L [facility] Comment on above: High Sensitivity Troponin values cannot be compared with other Troponin methodologies. Patients with high levels of Biotin oral intake (i.e >5mg/day) may have falsely decreased Troponin levels. Samples collected within 8 hours of biotin intake may require additional information for diagnosis. [facility] Urinalysison 09-03-2021 Bilirubin Urine Negative NEGATIVE [facility] lth Color, UA Yellow Yellow [facility] Glucose, Ur Negative NEGATIVE [facility] Interpretation and review of laboratory results Abnormal [facility] Ketones Ql (U) MODERATE Abnormal NEGATIVE [facility] Leukocyte esterase Test strip Ql (U) Negative NEGATIVE [facility] Nitrite, Urine Negative NEGATIVE [facility] pH, UA 5.0 [facility] Protein, UA Negative NEGATIVE [facility] Specific [place], UA 1.025 [facility] Turbidity UA Clear Clear [facility] Urinalysis Comments [facility] Urine Hgb 2+ Abnormal NEGATIVE [facility] Urobilinogen, Urine Normal Normal [facility] XR CHEST PORTABLEon 09-04-19 22 Hyperinflation, clear [...] lesion. OTHER: Negative. IMPRESSION: Hyperinflation, clear lungs [employer] Phone: Radiology Study observation (narrative) [employer] Phone: XR CHEST PORTABLEOrdered By: Ronnie Duong on 09-03-[address] HEAD WO CONTRASTOrdered B y: Joan Diallo on 01-22-2021 No evidence of acute intracranial hemorrhage, hematoma or other structural abnormality. Brain CT is stable compared to January 10, 2018. Intact calvarium and skull base. [employer] Phone: EXAMINATION: CT HEAD WO CONTRAST HISTORY: [...] hemorrhage or hematoma. No focal abnormal density. [employer] Phone: Sourav, pn Incoming Radiant Results From [employer] - 01/22/2021 11:13 AM EDT EXAMINATION: CT [...] 10, 2018. Intact calvarium and skull base. [employer] Phone: [employer] Phone: XR CERVICAL SPINE (4-5 VIEWS )Ordered By: Joan Landrum on 01-22-2021 Minimal degenerative changes, without fracture. [employer] Phone: EXAM: XR CERVICAL SP INE (4-5 VIEWS) HISTORY: S00.93XA 40-year-old female head contusion. COMPARISON: Cervical spine series 12/10/2020. TECHNIQUE: 5 views cervical spine. 6 images. FINDINGS: Minimal age expected degenerative changes in the cervical spine with no fracture or dislocation. Facets and spinous processes are normal. The intervertebral foramina are patent. Lung apices are clear. The odontoid is normal. [employer] Phone: Sourav, Mhpn Incoming Radiant Results From [employer] - 01/22/2021 11:44 AM EDT EXAM: XR [...] normal. IMPRESSION: Minimal degenerative changes, without fracture. [employer] Phone: [employer] Phone: Vital Signs Date Time Vital Sign Value Performing Clinician Jeremiah castaneda 01-21-2022 15:46-0400 Blood Pressure Location [facility] 01-21-2022 15:46-0400 Diastolic blood pressure 66 mm[Hg] Gregg Cervel [employer] [facility] [place] 01-21-2022 15:46-0400 Heart rate 72 /min Gregg Cervel [employer] [facility] 01-21-2022 15:46-0400 Respiratory rate 16 /min Gregg Cervel [employer] [facility] 01-21-2022 15:46-0400 Systolic blood pressure 124 mm[Hg] Gregg PICKERING [facility] 09-04-2021 10:30-0400 Diastolic blood pressure 69 mm[Hg] Alexis Brandon MD Work Phone: [employer] 09-04-2021 10:30-0400 Heart rate 97 /min Alexis Brandon MD Work Phone: [employer] 09-04-2021 10:30-0400 Respiratory rate 22 /min Alexis Brandon MD Work Phone: [employer] 09-04-2021 10:30-0400 SaO2% (BldA) [Mass fraction] 98 % Alexis Brandon MD Work Phone: [employer] 09-04-2021 10:30-0400 Systolic blood pressure 112 mm[Hg] Alexis Brandon MD Work Phone: [employer] 09-04-2021 07:44-0400 Body temperature 98.2 [degF] Alexis Brandon MD Work Phone: [employer] 09-03-2021 17:00-0400 Diastolic blood pressure 74 mm[Hg] Alexis Brandon MD Work Phone: [employer] 09-03-2021 17:00-0400 Heart rate 94 /min Alexis Brandon MD Work Phone: [employer] 09-03-2021 17:00-0400 Respiratory rate 15 /min Alexis Brandon MD Work Phone: [employer] 09-03-2021 17:00-0400 SaO2% (BldA) [Mass fraction] 96 % Alexis Brandon MD Work Phone: [employer] 09-03-2021 17:00-0400 Systolic blood pressure 119 mm[Hg] Alexis Brandon MD Work Phone: [employer] 09-03-2021 15:02-0400 Body height 167.6 cm Alexis Brandon MD Work Phone: [employer] 09-03-2021 15:[id number] Body mass index (BMI) [Ratio] 20.98 kg/m2 Alexis Brandon MD Work Phone: [employer] 09-03-2021 15:020400 Body weight 58.97 kg Alexis Brandon MD Work Phone: [employer] 09-03-2021 15:01-0400 Body temperature 98.1 [degF] Alexis Brandon MD Work Phone: [employer] Encounters Encounter Date Encounter Type Care Provider Facility Start: 09-29-2024 End: 09-29-2024 ambulatory [facility] Start: 08-29-2024 End: 08-29-2024 Patient encounter procedure John Moreno MD Work Phone: [facility] [place] Work Phone: Start: 08-29-2024 End: 08-29-2024 ambulatory John Moreno MD Work Phone: [facility] Work Phone: Start: 08-11-2024 End: 08-11-2024 Departed Referred Sergo Lovelace [facility] DO Work Phone: [facility] [address] Work Phone: Start: 08-11-2024 End: 08-11-2024 ambulatory Sergo Hummel [facility] Work Phone: Start: 01-05-2024 End: 01-07-2024 ambulatory NIKOLAY CANTU [facility] Start: 01-05-2024 End: 01-07-2024 Subsequent hospital visit by physician John Moreno MD [facility] Start: 05-04-2023 ambulatory JEANETTE CALABRESE Facility :[facility] Start: 05-04-2023 End: 05-04-2023 Subsequent hospital visit by physician Jeanette Calabrese [employer] Work Phone: [facility] Comment on above: Arrived Start: 04-27-2023 End: 04-29-2023 [facility]ulatory [facility] Start: 03-29-2023 End: 03-30-2023 ambulatory [facility] Start: 03-26-2023 End: 03-28-2023 ambulatory [facility] Start: 03-04-2023 End: 03-05-2023 ambulatory QUYNH E SAUL [facility] Start: 02-26-2023 End: 02-27-2023 ambulatory JOHN Abarca JESICALandy [facility] Start: 02-26-2023 Encounter for gynecological examination (general) (routine) without abnormal findings [facility] Start: 09-21-2022 End: 09-22-2022 ambulatory SHELDON BENNETT Facility:[facility] Start: 09-01-2022 End: 09-02-[address] JOHN MORENO . Facility:[facility] Start: 08-26-2022 End: 08-27-[address] JOHN MORENO . Facility:[facility] Start: 02-18-2022 End: 02-19-2022 ambulatory Gregg PICKERING Facility:CD:[id number] Start: 02-17-2022 Encounter for preprocedural laboratory examination DR GREGG PICKERING . [facility] Start: 02-14-2022 End: 02-15-[address] GREGG PICKERING . Facility:[facility] Start: 02-14-2022 End: 02-15-2022 Encounter for preprocedural laboratory examination DR GREGG PICKERING . Facility: Start: 01-21-2022 End: 01-22-2022 ambulatory Gregg PICKERING Facility:[facility] Start: 01-21-2022 End: 01-21-2022 Patient encounter procedure [facility] PICKERING [facility] Start: 12-25-[address] JOHN MORENO . Facili ty:[facility] Start: 09-04-2021 End: 09-04-2021 Emergency department patient visit Alexis Brandon MD Work Phone: [facility] ED Comment on above: Shortness of breath (Primary Dx); Moderate persistent asthma with exacerbation; Dehydration; Diarrhea, unspecified type; Exacerbation of Crohn's disease with complication (HCC) Start: 09-03-2021 End: 09-03-2021 Emergency department patient visit Alexis Brandon MD Work Phone: [facility] ED Comment on above: Nausea and vomiting, intractability of vomiting not specified, unspecified vomiting type (Primary Dx); Diarrhea, unspecified type; Shortness of breath Start: 01-22-2021 End: 01-24-2021 Subsequent hospital visit by physician [facility] Cat Scan [facility] Radiology Comment on above: Contusion of head, u nspecified part of head, initial encounter Procedures Date Procedure Procedure Detail Performing Clinician Start: 08-29-2024 CT of thorax with contrast John Moreno MD Work Phone: Start: 08-11-2024 Plain chest X-ray Sergo CHEEMA DO Work Phone: Start: 02-26-2023 Microscopic observat ion [...] cervical 4 or 5 views Joan Diallo [employer] N[employer]SE [employer] Work Phone: Start: 01-22-2021 Ct head/brain w/o co ntrast material Joan Diallo [employer] - NURSE [employer] Work Phone: Start: 06-09-2016 Diagnostic laparoscopy Gregg PICKERING Start: 05-09-2012 Diagnostic laparoscopy Gregg PICKERING Start: 05-20-2011 Colonoscopy Gregg SCHMIDT Cholecystectomy Gregg PICKERING Endometrial ablation Gregg PICKERING Ligation of fallopian tube Rima pierson [facility] Plan of Treatment Date Care Activity Detail Author Start: 02-26-2026 Screening for malignant neoplasm of cervix [facility] [employer] Start: 04-27-2025 Screening for malignant neoplasm of breast Breast cancer screen [employer] Start: 04-15-2024 Depression Screen Depression Screen [facility] [employer] Start: 03-26-2024 Screening for malignant neoplasm of breast MAMMOGRAM SCREENING DISCUSSION [facility] Start: 01-13-2024 Influenza vaccination Flu vaccine (# 1) [facility] [employer] Start: 11-11-2023 Screening for malignant neoplasm of colon [facility] Start: 05-12-2023 End: 05-12-2023 Patient encounter procedure Donnie Care [facility] Start: 02-12-2023 Influenza vaccination INFLUENZA VACC INE (#1) [facility] Start: 02-12-2021 Influenza vaccination Flu vaccine (# 1) [facility] Start: 2018 Lipid panel [facility] Start: 2008 Screening for malignant neoplasm of cervix [facility] Start: 11-11-1999 Screening for malignant neoplasm of cervix [facility] Start: 1997 DTaP/Tdap/Td vaccine (2 - Tdap) DTaP/Tdap/Td vaccine (2 - Tdap) [facility] Start: 1997 Third diphtheria, tetanus and acellular pertussis (DTaP) vaccination TDAP (ADULT) [facility] Start: 1996 Hepatitis C screening Hepatitis C sc reen [facility] Start: 1993 HIV screening [facility] Start: 1990 COVID-19 Vaccine (1) COVID-19 Vaccin e (1) [facility] Work Phone: Start: 1990 Depression Screen Depression Screen [facility] Start: 1984 Pneumococcal 0-64 years Vaccine (1 of 2 - PCV) Pneumococcal 0-64 years Vaccine (1 of 2 - PCV) [facility] Start: 1984 Pneumococcal 0-64 years Vaccine (1 of 2 - PPSV23) Pneumococcal 0-64 years Vaccine (1 of 2 - PPSV23) [facility] Start: 11-11-1983 COVID-19 Vaccine (1) COVID-19 Vaccin e (1) [facility] Start: 05-13-1979 COVID-19 VACCINE (#1) COVID-19 VACCI NE (#1) [facility] Start: 03-13-1979 Polio vaccine (2 of 3 - 4-dose series) Polio vaccine (2 of 3 - 4-dose series) [facility] Start: 1978 Hepatitis B vaccine (1 of 3 - 3-dose series) Hepatitis B vaccine (1 of 3 - 3-dose series) [facility] Start: 1978 Hepatitis C screening [facility] Start: 1978 Tetanus vaccination TETANUS [facility] EKG 12 Lead EKG 12 Lead ECG STAT 09/03/2021 3:11 PM EDT [facility] Work Phone: EKG 12 Lead EKG 12 Lead ECG STAT 09/04/2021 9:33 AM EDT [facility] Work Phone: End: 05-04-2023 MG Breast Views [facility] Work Phone: Comment on above: 1 Occurrences starti ng 05/04/2023 until 05/04/2023 Payers Date Payer Category Payer Self-pay 2024 Unknown [id number] 2024 Unknown [id number] 2021 Unknown ANTHEM ANTHEM HM O PPO POS [id number] 2021-Present [address] [place] [address] [id number] 1978 Unknown [id number] 1978 Unknown [id number] 1978 Unknown [id number] [id number] 1978 Unknown [id number] 2.840.1.948130.3.579.2.593 1978 Unknown [id number] 2.840.1.362278.3.579.2.593 1978 Unknown [id number] 2.840.1.469871.3.579.2.593 1978 Unknown [id number] 2.16.840.1.503918.3.579.2.593 1978 Unknown [id number] 2.16.840.1.902353.3.579.2.593 1978 Unknown [id number] 2.16.840.1.412645.3.579.2.173 1978 Unknown [id number] 2.16.840.1.785136.3.579.2.173 1978 Unknown [id number] 2.16.840.1.440819.3.579.2.173 1978 Unknown [id number] 2.16.840.1.572906.3.579.2.594 1978 Unknown [id number] 2.16.840.1.099901.3.579.2.174 1978 Unknown [id number] 2.16.840.1.218082.3.579.2.174 1978 Unknown [id number] 2.16.840.1.314851.3.579.2.174 1978 Unknown [id number] 2.16.840.1.152050.3.579.2.174 1978 Unknown [id number] 2.16.840.1.018557.3.579.2.174 1959 Unknown [id number] [id number] [id number] 1959 Unknown [id number] [id number] Unknown [id number] ODJFS SSW [employer] [id number] Unknown [id number] Social History Date Type Detail Facility Start: 01-24-2021 End: 03-26-2023 Tobacco smoking status NHIS Current every day smoker [employer] Phone: History of tobacco use Cigarette Smoker [facility] [employer] Start: 01-24-2021 End: 04-15-2023 Cigarettes smoked current (pack per day) - Reported JEANNINE PUCKETT [employer] Start: 01-24-2021 End: 03-26-2023 Tobacco use and exposure Never used [employer] Start: 01-24-2021 End: 04-27-2023 Alcohol intake Current non-drinker of alcohol (finding) [employer] Phone: Start: 1980 Sex Assigned At Not on file [facility] [employer] Phone: Start: 08-24-2021 End: 09-04-2021 Exposure to SARS-CoV-2 (event) Not sure [employer] Phone: Start: 01-21-2022 Tobacco smoking status Heavy t obacco smoker (finding) [facility] Tobacco smoking status Never [facility] Start: 04-15-2023 End: 04-27-2023 Sex Assigned At Female [facility] Tobacco smoking stat us [facility] Tobacco smoking consumption unknown [facility] Start: 08-12-2024 End: 08-30-2024 Sex Female (finding) [facility] Start: 1980 Sex Assigned At Female [facility] Functional Status Date Assessment Result Facility 01-21-2022 Functional Status N/A [facility] Clinical Notes 01-22-2022 to 09-29-2024 Note Date & Type Note Facility 09-29-2024 Note [facility] Subjective Nahum Roberts is a 43 y.o. year old female patient being seen to establish care. Ref from Dr. Moreno for abnormal echo performed this week at [facility]. Says she smokes 1/2 PPD, and 15 joints a day . She has intermittent chest pain, SOB, dizziness, and 3 episodes of syncope. She takes no medications. Patient Active Problem List Diagnosis Uterine leiomyoma Postgastric surgery syndrome Nausea with vomiting, unspecified Low back pain Left inguinal hernia Impingement syndrome of shoulder region History of tobacco use Hemorrhagic diarrhea Gonorrhea Gastroesophageal reflux disease Disorder of intervertebral disc of cervical spine Change in bowel habit Breast lump Body mass index (BMI) of 20 to 24 Benign tumor of breast History of gastritis Dumping syndrome Inguinal lymphadenopathy Acute diarrhea Gastritis Degeneration of cervical intervertebral disc Fibrocystic breast changes Peripheral vertigo Palpitations Pain in left hand Pain in right hand Other specified conditions associated with female genital organs and menstrual cycle Left upper quadrant pain Jaw pain Irregular intermenstrual bleeding Herpetic fallon Encounter for general adult medical examination without abnormal findings Diverticulitis Contusion of wrist Cough Contusion of right knee Contact with and (suspected) exposure to other viral communicable diseases Contact dermatitis Acute cystitis with hematuria Abnormal chest x-ray Amnesia Cardiac aneurysm Hypothyroidism, unspecified Lumbar radiculopathy Vitamin D deficiency, unspecified Weakness Family History Problem Relation Name Age of Onset Other (ckd) Mother Diabetes Mother Mitral valve prolapse Mother Hypertension Mother Colon cancer Maternal Grandfather Heart attack Maternal Grandfather Brain Aneurysm Maternal Grandfather Social History Tobacco Use Smoking status: Every Day Current packs/day: 0.50 Average packs/day: 0.5 packs/day for 20.0 years (10.0 ttl pk-yrs) Types: Cigarettes Smokeless tobacco: Never Vaping Use Vaping status: Never Used Substance Use Topics Alcohol use: Not Currently Drug use: Yes Types: Marijuana Comment: smokes 15 joints a day ADOLFO Munoz is seen as a new patient referred from Dr. Moreno's office because of abnormal echocardiogram. She is a 43-year-old woman with history of smoking and positive family history for heart disease. She recently changed jobs and underwent a chest x-ray to rule out TB as part of the preemployment testing. Of the chest x-ray was abnormal and it triggered a CT scan of the chest that showed evidence of a possible pericardial cyst. An echocardiogram was performed that showed severe left ventricular systolic dysfunction with an ejection fraction of 25%. She reports having had episodes of on and off sharp chest pain that have been happening over the past several months. In addition she has shortness of breath on exertion NYHA class II-III symptoms. No lower extremity edema. She has mild occasional palpitations and feeling of irregular heartbeat. She is an active smoker and uses marijuana. Review of Systems HENT: Positive for tinnitus. Cardiovascular: Positive for chest pain, dyspnea on exertion, irregular heartbeat, palpitations and syncope. Respiratory: Positive for shortness of breath. Neurological: Positive for dizziness, headaches and light-headedness. Psychiatric/Behavioral: Positive for altered mental status ( confusion ). Objective Visit Vitals BP 144/76 (BP Location: Right arm, Patient Position: Sitting) Pulse 86 Ht 1.676 m (5' 6 ) Wt 57.6 kg (127 lb) SpO2 99% BMI 20.50 kg/m??? OB Status Ablation Smoking Status Every Day BSA 1.64 m??? Physical Exam Constitutional: Appearance: She is well-developed. She is not ill-appearing. HENT: Head: Normocephalic and atraumatic. Nose: Nose normal. Eyes: General: No scleral icterus. Pupils: Pupils are equal, round, and reactive to light. Neck: Thyroid: No thyromegaly. Vascular: No JVD. Cardiovascular: Rate and Rhythm: Normal rate and regular rhythm. Pulses: Radial pulses are 2+ on the right side and 2+ on the left side. Heart sounds: Normal heart sounds. No murmur heard. No friction rub. No gallop. Pulmonary: Effort: Pulmonary effort is normal. No respiratory distress. Breath sounds: Normal breath sounds. No wheezing or rales. Chest: Chest wall: No tenderness. Abdominal: General: Bowel sounds are normal. There is no distension. Palpations: Abdomen is soft. Tenderness: There is no abdominal tenderness. Musculoskeletal: General: No swelling. Cervical back: Neck supple. Skin: General: Skin is warm and dry. Neurological: General: No focal deficit present. Mental Status: She is alert and oriented to person, place, and time. Psychiatric: Mood and Affect: Mood normal. Behavior: Behavior (more content not included)... [facility] 08-29-2024 Radiology Diagnostic study note [facility] [place] [address] [place], [place] [id number] CT Scan Report Signed Patient: Nahum Guzman MR#: [id number] : 1980 Acct:[id number] Age/Sex: 43 / F ADM Date: 5 Loc: CT Room: Type: [facility] Attending Dr: John Moreno MD Copies to: John Moreno MD~ [...] Rosa Jones M.D.08/29/2024 10:23 AM Dictation Location: [place] [address] Transcribed By: [facility] 08/29/24 1023 Dictated By: Rosa Jones MD 08/29/24 1001 Signed By: 08/29/24 1023 [facility] Work Phone: 10-05-2023 Note I called pt and left a voice mail message re: her missed appt with Dr. Gifford on 10/01/23. I left my phone # and asked her to call me back if she'd like to re-schedule that appt. [facility] [place] 02-18-2022 Note OPERATIVE NOTE OPERATION DATE: 02/18/2022 [...] CC: John Moreno M.D. [facility] 01-22-2022 Note Chief Complaint consultation for bloody diarrhea HPI Staff 41 year old female presents on consultation from Dr. Moreon for bloody diarrhea. Reports long standing history [...] Shoulder impingement syndrom (more content not included)... [facility] Comment on above: Result Comment: Elec tronically Signed By: GROVER HUNTER, Gregg Sidhu\Date and Time Signed: 01/22/22 08:44 EDT Evaluation + Plan note No data available for this section General Surgery [place] Evaluation note Diagnosis Contusion of head, unspecified part of head, initial encounter documented in this encounter [employer] Phone: evaluation note* Diagnosis Contusion of head, unspecified part of head, initial encounter documented in this encounter [employer] Phone: evaluation note* Diagnosis Nausea and vomiting, intractability of vomiting not specified, unspecified vomiting type- Primary Diarrhea, unspecified type Shortness of breath documented in this encounter [employer] Phone: evaluation note* Diagnosis Shortness of breath- Primary Moderate persistent asthma with exacerbation Unspecified asthma, with exacerbation Dehydration Diarrhea, unspecified type Exacerbation of Crohn's disease with complication (HCC) [facility]* Diagnosis Abnormal finding on breast imaging Other (abnormal) findings on radiological examination of breast [facility] assessment information available [facility] Work Phone: Hospital Discharge instructions* Attachments The following attachments cannot be sent through Care Everywhere. * Clear Liquid Diet: General Info (Dominican) [facility]: Hospital Discharge instructions* Attachments The following attachments cannot be sent through Care Everywhere. * Dehydration (Dominican) * Diarrhea (Dominican) [facility] Phone: Hospital Discharge instructions No data available for this section General Surgery [place] Progress note No data available for this section General Surgery [place] Advance Directives No Advanced Directives Records FoundDocuments on File Type Date Recorded Patient Conservation Enforcement Officer Expl anation ACP-Advance Directive ACP-Power of Feed Mill Lab Technician Documents on File Type Date Recorded Patient Conservation Enforcement Officer Expl anation ACP-Advance Directive ACP-Power of Feed Mill Lab Technician Advance Directive Response Recorded Date/ Time Advance Directives No August 25, 025 9:09am Reason for Referral Status Reason Specialty Diagnoses / Procedures Referre d By Contact Referred To Contact Closed Radiology Diagnoses Contusion of head, unspecified part of head, initial encounter Procedures CT HEAD WO CONTRAST Joan Landrum, CHEESE PANCAKE ROLLER - NURSE PARALEGAL [address] [facility] [address] [place] [address] [facility] [address] [place] [address] Specialty Diagnoses / Procedures Referred By Contac t Referred To Contact Diagnoses Abnormal finding on breast imaging Procedures BREAST IMAGING SECOND OPINION READING Jeanette Calabrese, CHEESE PANCAKE ROLLER-TICKER INSTALLER [address] [place] [address] Referral ID Status Reason Start Date Expiration Date V isits Requested Visits Authorized [id number] New Request 05/04/2023 05/28/2024 1 1 Summary [...] Procedures CT HEAD WO CONTRAST Joan Landrum, CHEESE PANCAKE ROLLER - NURSE PARALEGAL [address] [place] [address] [facility] [address] [place] [address] Status Reason Specialty Diagnoses / Procedures Referre d By Contact Referred To Contact Open Radiology Diagnoses Contusion of unspecified part of head, initial encounter Procedures XR CERVICAL SPINE (4-5 VIEWS) [id number] Joan Landrum, CHEESE PANCAKE ROLLER - NURSE PARALEGAL [address] [address] [facility] [address] [place] [address] Reason Comments Abdominal Pain pt reports woke up a round 3 am with chest pain, shortness of breath, nausea vomitting and diarrhea. Shortness of Breath Nausea Reason Comments Shortness of Breath increased sob Specialty Diagnoses / Procedures Referred By Mable bobby Referred To Contact Diagnoses Abnormal finding on breast imaging Procedures BREAST IMAGING SECOND OPINION READING Jeanette Calabrese, CHEESE PANCAKE ROLLER-TICKER INSTALLER [address] [facility] [address] [place] [address] Referral ID Status Reason Start Date Expiration Date V isits Requested Visits Authorized [id number] New Request 05/04/2023 05/28/2024 1 1 Scheduled [...] 1520 (Given - Provid er: Joya Amaral RUBBER PRINTING MACHINE OPERATOR) ketorolac (TORADOL) injection 30 mg (COMPLETED) Ketorolac [...] Care Teams (unrecognized sec tion and content) Starch Crab Relationship Specialty Start Date End Date John Moreno MD [address] [place] [address] PCP - General 10/13/12 Starch Crab Relationship Specialty Start Date End Date John Moreno MD [address] [place] [address] PCP - General 10/13/12 Starch Crab Relationship Specialty Start Date End Date John Moreno MD [place] [address] PCP - General Family Medicine 04/30/23 Quynh Bishop CNM [address] [facility] [address] [place] [address] Certified Nurse 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 DATE CREATED AUTHOR AUTHOR'S ORGANIZ ATION 09/27/2022 [facility] DATE CREATED AUTHOR AUTHOR'S ORGANIZ ATION 03/31/2023 [facility] DATE CREATED AUTHOR AUTHOR'S ORGANIZ ATION 05/06/2023 [facility] DATE CREATED AUTHOR AUTHOR'S ORGANIZ ATION 07/04/2023 [facility] DATE CREATED AUTHOR AUTHOR'S ORGANIZ ATION 01/08/2024 [facility] DATE CREATED AUTHOR AUTHOR'S ORGANIZ ATION 09/02/2024 [facility] DATE CREATED AUTHOR AUTHOR'S ORGANIZ ATION 10/01/2024 [facility] Goals (unrecognized section and content) Goals may [...] BE BASED ON THE PRIMARY CLINICAL RECORDS. [facility]. provides no warranty or guarantee of the accuracy or completeness of information in this document.
[2024-10-02 11:11] LABS: Basophils Percent Auto 0.5 % (0.2-2.0); Eosinophils Absolute Auto 0.1 10^3/uL (0.0-0.7); Eosinophils Percent Auto 0.7 % (0.9-7.0); Hematocrit 39.2 % (36.0-48.0); Hemoglobin 13.7 g/dL (12.0-16.0); Immature Granulocytes Abs Auto 0.01 10^3/uL (0.00-0.03); Immature Granulocytes Pct Auto 0.1 % (0.0-0.5); Lymphocytes Absolute Auto 3.7 10^3/uL (1.2-3.8); Lymphocytes Percent Auto 50.1 % (20.5-60.0); Mean Corpuscular HGB Conc 34.9 g/dL (29.9-35.2); Mean Corpuscular Hemoglobin 32.9 pg (26.7-34.0); Mean Platelet Volume 9.1 fL (9.5-13.5); Monocytes Absolute Auto 0.7 10^3/uL (0.3-0.8); Monocytes Percent Auto 8.9 % (1.7-12.0); Neutrophils Absolute Auto 2.9 10^3/uL (1.4-6.5); Neutrophils Percent Auto 39.7 % (43.0-75.0); Platelet Count 254 10^3/uL (150-450); Red Blood Count 4.17 10^6/uL (4.20-5.40); Red Cell Distribution Width 12.2 % (11.0-15.0); White Blood Count 7.3 10^3/uL (4.0-11.0)
[2024-10-02 11:16] LABS: Anion Gap 10.5; BUN Creatinine Ratio 7.9; Calcium 8.7 mg/dL (8.5-10.1); Carbon Dioxide 28.5 mmol/L (21.0-32.0); Chloride 106 mmol/L (98-107); Estimated GFR (African America >60 (>=60 mL/min/1.73m^2); Estimated GFR (Non-African Ame >60 (>=60 mL/min/1.73m^2); Glucose 85 mg/dL (74-106); Sodium 141 mmol/L (136-145)
== END 2024-10-02 10:45 | disposition home or self-care (01) ==
LOC: LAB 10:46
PROVIDERS: PCP Family Medicine; Visit Provider Internal Medicine Interventional Cardiology
DX: I50.21 Acute systolic (congestive) heart failure (principal)
CPT/HCPCS: 36415; 80048; 85025

== ENCOUNTER 2024-10-15 11:52 | Emergency (ER) | payer BC, SELFPAY ==
[2024-10-15] VITALS (7 sets, daily range): BP systolic 132–168; BP diastolic 69–92; PULSE 65–84; O2SAT 94–100
--- NOTE | 2024-10-15 12:09 | ECG_ITS ---
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 Measurements Intervals [place] Rate: 73 P: 76 DC: 146 QRS: 76 QRSD: 86 T: 65 QT: 392 QTc: 418 Interpretive Statements 1100 Sinus rhythm 9110 normal ECG Compared to ECG 02/18/2023 13:43:57 No significant changes Electronically Signed On 10-16-2024 7:44:21 EDT by SARAH FIELDS M.D.
[2024-10-15 12:13] LABS: Basophils Percent Auto 0.4 % (0.2-2.0); Eosinophils Absolute Auto 0.1 10^3/uL (0.0-0.7); Eosinophils Percent Auto 0.9 % (0.9-7.0); Hematocrit 38.3 % (36.0-48.0); Hemoglobin 13.3 g/dL (12.0-16.0); Immature Granulocytes Abs Auto 0.02 10^3/uL (0.00-0.03); Immature Granulocytes Pct Auto 0.3 % (0.0-0.5); Lymphocytes Absolute Auto 3.9 10^3/uL (1.2-3.8); Lymphocytes Percent Auto 51.3 % (20.5-60.0); Mean Corpuscular HGB Conc 34.7 g/dL (29.9-35.2); Mean Corpuscular Hemoglobin 32.7 pg (26.7-34.0); Mean Corpuscular Volume 94.1 fL (81.0-99.0); Mean Platelet Volume 9.1 fL (9.5-13.5); Monocytes Absolute Auto 0.8 10^3/uL (0.3-0.8); Monocytes Percent Auto 9.8 % (1.7-12.0); Neutrophils Absolute Auto 2.9 10^3/uL (1.4-6.5); Neutrophils Percent Auto 37.3 % (43.0-75.0); Platelet Count 228 10^3/uL (150-450); Red Blood Count 4.07 10^6/uL (4.20-5.40); White Blood Count 7.7 10^3/uL (4.0-11.0)
[2024-10-15 12:22] LABS: HCG Qualitative NEGATIVE (NEGATIVE); Internal Control Within Normal Limits
[2024-10-15 12:29] LABS: Alanine Aminotransferase 28 U/L (14-59); Albumin Globulin Ratio 1.2; Albumin Level 3.6 g/dL (3.4-5.0); Alkaline Phosphatase 64 U/L (46-116); Anion Gap 5.9; Aspartate Amino Transferase 15 U/L (15-37); BUN Creatinine Ratio 7.8; Bilirubin Total 0.4 mg/dL (0.2-1.0); Calcium 8.8 mg/dL (8.5-10.1); Carbon Dioxide 28.6 mmol/L (21.0-32.0); Chloride 103 mmol/L (98-107); Estimated GFR (African America >60 (>=60 mL/min/1.73m^2); Estimated GFR (Non-African Ame >60 (>=60 mL/min/1.73m^2); Glucose 108 mg/dL (74-106); Potassium 3.5 mmol/L (3.5-5.1); Sodium 134 mmol/L (136-145); Total Protein 6.6 g/dL (6.4-8.2); Troponin I High Sensitivity 4.3 pg/mL (4.0-51.3)
[2024-10-15] MEDS: 0.9 % SODIUM CHLORIDE 1,000 ML 1000 ML IV (12:34)
[2024-10-15] MEDS: KETOROLAC TROMETHAMINE 30 MG/ML VIAL 15 MG IVP (12:35)
[2024-10-15] MEDS: FAMOTIDINE/PF 20 MG/2 ML VIAL IV (12:36)
[2024-10-15 13:53] LABS: Troponin I High Sensitivity 4.4 pg/mL (4.0-51.3)
--- NOTE | 2024-10-15 14:11 | ED.GENADUL1 ---
HPI HPI - General Adult General Chief complaint: Chest Pain Stated complaint: CHEST PAINS Time Seen by Provider: 10/15/24 12:08 Mode of arrival: walk-in History of Present Illness HPI narrative: The patient is a 43-year-old female coming to the ER with a left-sided chest pain, patient mentioned that she has a history of congestive heart failure is coming to the ER with a left-sided arm pain as well as chest pain that started after she was trying to open the car door, the patient mentioned that the pain came is away from her chest down to her middle finger in the left hand. And she still have the pain No difficulty breathing no nausea no vomiting no other complaint the pain was in the retrosternal area as well in the same time that she is having pain in her left arm It was noted that patient also have pain with movement of her left shoulder No history of fall or trauma Related Data Previous Rx's ?Medication ?Instructions ?Recorded ondansetron 8 mg disintegrating 8 mg PO Q8H 48 hours #6 tabs 02/18/23 tablet promethazine 25 mg tablet 25 mg PO TID PRN nausea and 02/18/23 vomiting #10 tabs acetaminophen 650 mg 650 mg PO Q8H PRN pain #20 tabs 10/15/24 tablet,extended release (Tylenol 8 Hour) methylprednisolone 4 mg tablets in 4 mg PO .as prescribed #21 ea 10/15/24 a dose pack (Medrol (Haile)) Allergies Allergy/AdvReac Type Severity Reaction Status Date / Time ibuprofen Allergy bleeding Verified 10/15/24 11:57 morphine Allergy Anaphylaxis Verified 10/15/24 11:57 Penicillins Allergy Anaphylaxis Verified 10/15/24 11:57 Opioid HPI Opioid Management Most Recent Opioid Data: Last Pain Scale 9 02/18/23, 12:00 Ur Phencyclidine Scrn, (NEGATIVE) Negative 02/18/23, 13:20 Review of Systems ROS Status of ROS 10 or more systems reviewed and unremarkable except as noted in history and below PFSH PFSH Social History Smoking status: Heavy tobacco smoker Little interest or pleasure in doing things: not at all Feeling down, depressed, or hopeless: not at all Exam Narrative Exam Narrative: Nurses notes and vital signs reviewed and patient is not hypoxic. General: Well-appearing and in no apparent distress. Skin: Warm, dry, no pallor noted. No rash. Head: Normocephalic, atraumatic. Neck: Supple, non-tender. Eye: Pupils are equal, round and EOMI. No scleral icterus. Ears, Nose, Mouth, and Throat: TM are clear, no nasal mucosal hypertrophy. Oral mucosa is moist, no posterior oropharynx erythema, uvula is mid-line Cardiovascular: Regular Rate and Rhythm without murmur, gallop or rub. Respiratory: No accessory muscle use or respiratory distress. Lungs are clear to auscultation, no wheezing, rales or rhonchi Chest Wall: no tenderness Back: No midline thoracic or lumbar vertebral tenderness. No CVA tenderness Musculoskeletal: There is tenderness upon palpation of the left shoulder and the patient have some limitation of movement of the shoulder above 90 degrees. GI: Abdomen is soft, non-distended. Normal bowel sounds. No masses appreciated. No tenderness to palpation. No rebound, guarding, or rigidity noted. Neurological: A&O x4. No cranial nerve dysfunction observed. Constitutional Vital Signs, click to edit/add: Last Vital Signs Pulse 70 10/15/24 13:30 Resp 23 H 10/15/24 13:30 BP 143/69 H 10/15/24 13:30 Pulse Ox 100 10/15/24 13:30 O2 Del Method Room Air 10/15/24 11:57 Course Vital Signs Vital signs: Vital Signs Pulse Rate 70 10/15/24 11:57 Respiratory Rate 20 10/15/24 11:57 Blood Pressure 151/92 H 10/15/24 11:57 Pulse Oximetry 99 10/15/24 11:57 Oxygen Delivery Method Room Air 10/15/24 11:57 Pulse Rate 70 10/15/24 13:30 Respiratory Rate 23 H 10/15/24 13:30 Blood Pressure 143/69 H 10/15/24 13:30 Pulse Oximetry 100 10/15/24 13:30 Oxygen Delivery Method Room Air 10/15/24 11:57 Medical Decision Making [facility] Narrative Medical decision making narrative: EKG showing sinus rhythm with a heart of [address] elevation or depression Patient chest x-ray showed no acute pathology The patient CBC and chemistry showed no acute pathology with a troponin repeated twice was negative The patient presentation was mostly secondary to muscular pain I did explain to her that she will be started on Medrol Dosepak in addition to Tylenol due to the fact that she have CHF I will avoid any NSAIDs Patient to monitor her symptoms The patient is to follow up with primary care physician in next 2-3 days or to return to the emergency department should any of the signs or symptoms worsen or new symptoms develop. The patient agrees with the following Diagnosis and Treatment plan and the patient will be discharged home. Lab Data Labs: Lab Results 10/15/24 10/15/24 Range/Units 12:05 13:29 WBC 7.7 (4.0-11.0) 10^3/uL RBC 4.07 L (4.20-5.40) 10^6/uL Hgb 13.3 (12.0-16.0) g/dL Hct 38.3 (36.0-48.0) % MCV 94.1 (81.0-99.0) fL MCH 32.7 (26.7-34.0) pg MCHC 34.7 (29.9-35.2) g/dL RDW 12.0 (11.0-15.0) % Plt Count 228 (150-450) 10^3/uL MPV 9.1 L (9.5-13.5) fL Neut % (Auto) 37.3 L (43.0-75.0) % Lymph % (Auto) 51.3 (20.5-60.0) % [place] % (Auto) 9.8 (1.7-12.0) % Eos % (Auto) 0.9 (0.9-7.0) % Baso % (Auto) 0.4 (0.2-2.0) % Neut # (Auto) 2.9 (1.4-6.5) 10^3/uL Lymph # (Auto) 3.9 H (1.2-3.8) 10^3/uL [place] # (Auto) 0.8 (0.3-0.8) 10^3/uL Eos # (Auto) 0.1 (0.0-0.7) 10^3/uL Baso # (Auto) 0.0 (0.0-0.1) 10^3/uL Abs Immat Gran (auto) 0.02 (0.00-0.03) 10^3/uL Imm/Tot Granulo (auto) 0.3 (0.0-0.5) % Sodium 134 L (136-145) mmol/L Potassium 3.5 (3.5-5.1) mmol/L Chloride 103 (98-107) mmol/L Carbon Dioxide 28.6 (21.0-32.0) mmol/L Anion Gap 5.9 BUN 7.0 (7.0-18.0) mg/dL Creatinine 0.90 (0.55-1.02) mg/dL Est GFR ( Amer) >60 (>=60 mL/min/1.73m^2) Est GFR (Non-Af Amer) >60 (>=60 mL/min/1.73m^2) BUN/Creatinine Ratio 7.8 Glucose 108 H (74-106) mg/dL Calcium 8.8 (8.5-10.1) mg/dL Total Bilirubin 0.4 (0.2-1.0) mg/dL AST 15 (15-37) U/L ALT 28 (14-59) U/L Alkaline Phosphatase 64 (46-116) U/L Troponin I High Sens 4.3 4.4 (4.0-51.3) pg/mL Total Protein 6.6 (6.4-8.2) g/dL Albumin 3.6 (3.4-5.0) g/dL Globulin 3.0 g/dL Albumin/Globulin Ratio 1.2 Serum HCG, Qual Negative (NEGATIVE) Discharge Plan Discharge Chief Complaint: Chest Pain Clinical Impression: Acute chest wall pain, Arm pain Patient Disposition: Home, Self-Care Time of Disposition Decision: 14:14 Condition: Good Prescriptions / Home Meds: New methylprednisolone [Medrol (Haile)] 4 mg tablets,dose pack 4 mg PO .as prescribed Qty: 21 0RF Rx Instructions: please use as per the Dose pack instruction acetaminophen [Tylenol 8 Hour] 650 mg tablet extended release 650 mg PO Q8H PRN (Reason: pain) Qty: 20 0RF Discontinued ketorolac 10 mg tablet 10 mg PO Q8H PRN (Reason: pain) 1 Days Qty: 14 0RF No Action promethazine 25 mg tablet 25 mg PO TID PRN (Reason: nausea and vomiting) Qty: 10 0RF ondansetron 8 mg tablet,disintegrating 8 mg PO Q8H 2 Days Qty: 6 0RF Rx Instructions: 1st dose 1-2 hr before radiation Print Language: Bulgarian Instructions: Chest Pain (ED), Chest Wall Pain (ED) Referrals: Abhay Moreno MD [Primary Care Provider, Family Practice] - 1 week Discharge Date/Time: 10/15/24 14:24
== END 2024-10-15 14:24 | disposition home or self-care (01) ==
PROVIDERS: Emergency Provider Emergency Medicine; PCP Family Medicine
DX: R07.89 Other chest pain (principal); M79.602 Pain in left arm; I50.9 Heart failure, unspecified; F17.200 Nicotine dependence, unspecified, uncomplicated
CPT/HCPCS: 36415; 71045; 80053; 84484; 84703; 85025; 93005; 96374; 96375; 99285; J1885; J3490

== ENCOUNTER 2024-11-17 09:55 | Emergency (ER) | payer BC, SELFPAY ==
--- OUTSIDE RECORDS SUMMARY | 2023-10-21 11:45 | XMS_ITS | Continuity of Care Document ---
Author Organization [facility] Address [address] [place] [address] Phone Care Team Providers Care Publicity Manager Name Role Phone Ari Rust Unavailable Unavailable Procedures Procedure Date TB Read TB INTRADERMAL TEST Advance Directives Directive Yes / No Effective Date File Name No Information Encounters Encounter Description Practice Location Reason(s) For Visit Diagnoses Date Provider Providers Copied on Encounter [facility], [address] [place] [address], [id number], tel:[phone] [facility] No Information Earnestine Zendejas. [address] [place], [place], [id number], [place]. tel:[phone] [facility], [address] [place], [place], [id number], tel:[phone] [facility] Encounter for screening for respiratory tuberculosis Earnestine Zendejas. [address], [place], [id number], [place]. tel:[phone] Family History Family Member Type Diagnosis Age At Onset No Information Payers Payer name Insurance type Covered libertarian ID Authoriza tion(s) No Information Social History [...] Of Treatment Date Type Action Status Goal Unhealthy drug use screening . Due on due Goal Influenza vaccine. Due on due Goal Tdap. Due on due Goal Hepatitis C screening. Due o n due Goal Lipid panel. Due on due Goal RLP. Due on due Goal HPV. Due on due Goal Tdap Vaccine. Due on 2023 due Goal PRAPARE ASSESSMENT. Due on due Goal Depression screening. Due on due Goal Influenza vaccine. Due on due Goal PRAPARE ASSESSMENT. Due on due Goal Tdap. Due on due Goal Tdap Vaccine. Due on 2023 due Goal RLP. Due on due Goal Depression screening. Due on due Goal Hepatitis C screening. Due o n due Goal Unhealthy drug use screening . Due on due Goal HPV. Due on due Goal Lipid panel. Due on due History Of Present Illness Encounter Date Complaint History Of Prese nt Illness No Information Functional Status Date Functional Assessmen t No Information Instructions Date Instruction Additional Infor mation No Information Assessments Type Assessment Date No Information Patient Care Teams Name Effective Dates (start - stop) Status Members No Information
--- OUTSIDE RECORDS SUMMARY | 2024-10-18 04:47 | XMS_ITS ---
Author Organization [facility] in [place] Address [address] [place] [address] Care Team Providers Care Assembler Wire Mesh Gate Name Role Phone Giovanny Moreno Primary Care Provider REASON FOR VISIT Pre-Medicate for heart cath Medications Medication SIG (Take, Route, Frequency, Duration) Notes Start Date End Date Status Valium 5 MG 1 tablet as needed O rally once about 1 hour before procedure for 1 days 10/18/2024 Active Encounters Encounter Location Date Provider Diagnosis [facility] [address] [place] [address] 10/18/2024 Giovanny Moreno Plan Of Treatment Medication Medication Name Sig Start Date Stop Date Notes Valium 5 MG 1 tablet as needed O rally once about 1 hour before procedure for 1 days 10/18/2024 Progress Notes * Tammy GUZMAN MDOB :1980 (43 yo F)Acc No.[id number]:10/18/2024 Patient: Tacos RUBYTERESETammy OCASIO :1980 A ge:43 Y S ex:Female Address:[address] [place] [address] * Refills Start Valium Tablet, 5 MG, Orally, 1, 1 tablet as needed, once about 1 hour before procedure, 1 days * true * Date: Generated for Holley españa/Indiag/eTransmitting on: 0 11/17/2024 10:03 AM EDT
--- OUTSIDE RECORDS SUMMARY | 2024-11-08 08:41 | XMS_ITS | Encounter Summary ---
Author Organization [facility] Address [address] [place] [address] Care Team Providers Care [employer] Science Teacher Name Role Phone Abhay Moreno MD Primary Care Provider [phone] Linda Pastrana MD Unavailable [phone] Encounter Details Date Type Department Care Team (Latest Contact Info) Description 11/08/2024 8:41 AM EDT - 11/08/2024 11:59 PM EDT Hospital Encounter [facility] Pulmonary Function Testing [address] [facility] 3rd [place] [address] Pre-op testing Discharge Disposition: Home or Self Care () Social History Tobacco Use Types Packs/Day Years [...] Recorded Patient Health Questionnaire-2 Score 0 10/19/2024 [place] Safety & Environment Answer Date Rec orded [...] Physically or Sexually Abused Not on file Sex and Gender Information Value Date Recorded Sex Assigned at Female 07/14/2023 2:59 PM EST Gender Identity Female 07/14/2023 2:59 PM EST Sexual Orientation Heterosexual or Straight 06/16 2:59 PM EST documented as of this encounter Medications at Time of Discharge Medication Sig Dispensed Refills Start Date End Date ALPRAZolam (Xanax) 0.5 mg tablet 0.5 mg if needed in the morning and at bedtime. 09/01/2023 aspirin 81 mg chewable tabletIndications:Acute systolic congestive heart failure (CMS/HCC) Chew 1 tablet (81 mg) in the morning. 90 tablet 3 09/29/2024 09/29/2025 cholecalciferol, vitamin D3, 50 mcg (2,000 unit) capsule Take 1 capsule by mouth in the morning. 08/10/2023 diazePAM (Valium) 5 mg tablet Take 5 mg by mouth 1 (one) time. losartan (Cozaar) 50 mg tabletIndications:Acute systolic congestive heart failure (CMS/HCC) Take 1 tablet (50 mg) by mouth in the morning. 90 tablet 3 09/29/2024 09/29/2025 meclizine 25 mg tablet,chewable every 12 (twelve) hours. metoprolol succinate XL (Toprol-XL) 50 mg 24 hr tabletIndications:Chron ic systolic congestive heart failure (CMS/HCC) Take 1 tablet (50 mg) by mouth in the morning. Do not crush or chew. 90 tablet 3 10/30/2024 10/30/2025 predniSONE (Deltasone) 20 mg tablet 1 (one) time each day at the same time. spironolactone (Aldactone) 25 mg tabletIndications:Chron ic systolic congestive heart failure (CMS/HCC) Take 0.5 tablets (12.5 mg) by mouth in the morning. 45 tablet 3 10/30/2024 10/30/2025 tamsulosin (Flomax) 0.4 mg 24 hr capsule 1 capsule 1 (one) time each day at the same time. tiZANidine (Zanaflex) 4 mg tablet 4 mg if needed in the morning, at noon, and at bedtime. 08/06/2023 triamcinolone (Kenalog) 0.1 % cream 1 Application. valACYclovir (Valtrex) 1 gram tablet 1 (one) time each day at the same time. documented as of this encounter Plan of Treatment Upcoming Encounters Date Type Department Care Team (Late st Contact Info) Description 11/29/2024 8:30 AM EDT Hospital Encounter [facility] Main Operating Room [address] [place] [address] Seng Rosado MD [address] [place] [address] 11/29/2024 8:30 AM EDT - 11/29/2024 12:00 PM EDT Surgery [facility] Main Operating Room [address] [place] [address] Seng Rosado MD [address] [place] [address] THORACOSCOPY, REMOVAL OF PERCARDIAL CYST [27775 (CPT )] Scheduled Procedures Name Priority Associated Diagnoses Date/Ti me THORACOSCOPY Pericardial cyst 11/29/2024 8:30 AM EDT documented as of this encounter Procedures Procedure Name Priority Date/Time Associated Diagnosis Comments HC DIFFUSING CAPACITY - CARBON MONOXIDE DIFFUSING CAPACITY Routine 11/08/2024 3:31 PM EDT Pre-op testing documented in this encounter Results * Pulmonary function testing (11/08/2024 3:31 PM EDT) Anatomical Region Laterality Modality Pulm Lab Room 11/08/2024 9:02 AM EDT Narrative 11/14/2024 10:49 PM EDT Pulmonary Function Testing Interpretation Name: Tammy Roberts Age: 44 y.o. Quality of Data: Good patient effort and cooperation. Patient understood test instructions. The results of this test appear to be valid, although the ATS standard for three acceptable maneuvers was not met during the DLCO maneuver. Inspiratory Volume < 90% of VC. Many attempts made, but not more than five. Best efforts shown. Test Performed: Spirometry without bronchodilator and Diffusing capacity Spirometry Interpretation: Spirometry shows an obstructive ventilatory defect. Flow Volume Loops: Flow-Volume loops are normal. Lung Volumes: Not performed Diffusing Capacity: Diffusing capacity of the lung is normal. Conclusions: An obstructive ventilatory defect is present with normal diffusing capacity suggestive of obstructive lung disease like COPD or asthma. Clinical and radiographic correlation is recommended. 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
--- OUTSIDE RECORDS SUMMARY | 2024-11-08 10:20 | XMS_ITS ---
Author Organization [facility] [place] Address [address] [place] [address] Care Team Providers Care Tape Librarian Name Role Phone Giovanny Moreno Primary Care Provider REASON FOR VISIT anxiety Medications Medication SIG (Take, Route, Fr equency, Duration) Notes Start Date End Date Status ALPRAZolam 0.25 MG 1 tablet Orally Twice a day for 7 days F41.9 11/08/2024 Active Encounters Encounter Location Date Provider Diagnosis [facility] [address] [place] [address] 11/08/2024 Giovanny Moreno Plan Of Treatment Medication Medication Name Sig Start Date Stop Date Notes ALPRAZolam 0.25 MG 1 tablet Orally Twice a day for 7 days 11/08/2024 Progress Notes * Tammy GUZMAN MDOB :1980 (43 yo F)Acc No.[id number]:11/08/2024 Patient: Tacos MCARTHURTammy OCASIO :1980 A ge:43 Y S ex:Female Address:[address] [place] [address] * Refills Start ALPRAZolam Tablet, 0.25 MG, Orally, 14 Tablet, 1 tablet, Twice a day, 7 days, Refills=0 * true * Date: Generated for Holley españa/Tiburcio/eTransmitting on: 0 11/17/2024 10:04 AM EDT
--- OUTSIDE RECORDS SUMMARY | 2024-11-15 08:52 | XMS_ITS | Encounter Summary ---
Author Organization [facility] Address [address] [place] [address] Care Team Providers Care Supervisor Cartography Name Role Phone Abhay Moreno MD Primary Care Provider [phone] Reason for Referral * Cardiology (Routine) - Closed Specialty Diagnoses / Procedures Referred By Contac t Referred To Contact Cardiology Diagnoses Syncope and collapse Procedures Extended cardiac holter monitor (3 days-14 day) CO EXTERNAL ECG REC>48HR<7D REVIEW & INTERPRETATION CO EXTERNAL ECG REC>48HR<7D RECORDING CO EXTERNAL ECG REC>7D<15D RECORDING CO EXTERNAL ECG REC>7D<15D REVIEW & INTERPRETATION Bereket Pacheco MD [address] [place] [address] [place] [address] Phone: tel: fax: Referral ID Status Reason Start Date Expiration Date Visits Re quested Visits Authorized [id number] Closed 11/15/2024 11/15/2025 1 1 Reason for Visit * Reason Comments Dizziness Pt states she passed out at home, unsure of hitting head. Reports left jaw pain, lt shoulder pain, she also reports she is in heart failure Encounter Details Date Type Department Care Team (Late st Contact Info) Description 11/15/2024 8:52 AM EDT - 11/15/2024 12:32 PM EDT Emergency [facility] Emergency Department [address] [place], [place] [id number] Bereket Pacheco MD [address] [place] [address] [place] [address] TIA (transient ischemic attack) (Primary Dx); Syncope and collapse; Symptoms of dehydration; Radicular pain in left arm Discharge Disposition: Home or Self Care Social History Tobacco Use Types Packs/Day Years Used Date Smoking Tobacco: Every Day Cigarettes Smokeless Tobacco: Never Alcohol Use Standard Drinks/Week Comments No 0 (1 standard drink = 0.6 oz pur e alcohol) AUDIT-C Answer Date Recorded Q1: How often do you have a drink containing alcohol? Never 10/29/2024 Q2: How many drinks containi ng alcohol do you have on a typical day when you are drinking? Patient does not drink Q3: How often do you have si x or more drinks on one occasion? Never 10/29/2024 PHQ-2 Answer Date Recorded PHQ-9 Total Score 1 04/15/2023 Comments No Sex and Gender Information Value Date Recorded Sex Assigned at Not on file Legal Sex Female 3:26 PM EST Gender Identity Not on file Sexual Orientation Not on file documented as of this encounter Last Filed Vital Signs Vital Sign Reading Time Taken Comments Blood Pressure 115/74 11/15/2024 12:15 PM EDT Pulse 58 11/15/2024 10:45 AM EDT Temperature 36.7 C (98 F) 11/15/2024 9:00 AM EDT Respiratory Rate 15 11/15/2024 10:45 AM EDT Oxygen Saturation 99% 11/15/2024 12:15 PM EDT Inhaled Oxygen Concentration - - Weight 59 kg (130 lb) 11/15/2024 8:59 AM EDT Height 170.2 cm (5' 7 ) 11/15/2024 8:59 AM EDT Body Mass Index 20.36 11/15/2024 8:59 AM EDT documented in this encounter Discharge Instructions * Attachments The following attachments cannot be sent through Care Everywhere. * Fainting (Slovak) * Neuropathic Pain (Slovak) * TIA (Transient Ischemic Attack) (Slovak) documented in this encounter Medications at Time of Discharge ALPRAZolam (XANAX) 0.25 MG tablet 1 tablet Orally Twice a day for 14 days F41.9 11/14/2024 spironolactone (ALDACTONE) 25 MG tablet Take 0.5 tablets by mouth daily 10/30/2024 10/30/2025 aspirin 81 MG chewable tablet Take 1 tablet by mouth daily 09/29/2024 09/29/2025 losartan (COZAAR) 50 MG tablet Take 1 tablet by mouth daily 09/29/2024 09/29/2025 metoprolol succinate (TOPROL XL) 25 MG extended release tablet Take 1 tablet by mouth daily 09/29/2024 09/29/2025 documented as of this encounter Plan of Treatment Pending Results Name Type Priority Associated Diagnoses Date/Time Extended cardiac holter monitor (3 days-14 day) CV Cardiac Diagnostics Routine Syncope and collapse 11/15/2024 12:57 PM EDT Scheduled Orders Name Type Priority Associated Diagnoses Orde r Schedule Extended cardiac holter monitor (3 days-14 day) CV Cardiac Diagnostics Routine Syncope and collapse Expected: 11/15/2024, Expires: 11/15/2025 documented as of this encounter Procedures Procedure Name Priority Date/Time Associated Diagnosis Comments CTA HEAD NECK W CONTRAST CODE STROKE 11/15/2024 11:[address] HEAD WO CONTRAST CODE STROKE 11/15/2024 1 1:03 AM EDT TROPONIN Timed 11/15/2024 9:59 AM EDT BRAIN NATRIURETIC PEPTIDE STAT 11/15/2024 9:34 AM EDT CBC WITH AUTO DIFFERENTIAL STAT 11/15/2024 9:00 AM EDT TROPONIN STAT 11/15/2024 9:00 AM EDT D-DIMER, QUANTITATIVE STAT 11/15/2024 9:00 AM EDT HCG, SERUM, QUALITATIVE STAT 11/15/2024 9:00 AM EDT BASIC METABOLIC PANEL STAT 11/15/2024 9:00 AM EDT EKG 12-LEAD STAT 11/15/2024 8:57 AM EDT documented in this encounter Results * CTA HEAD NECK W CONTRAST (11/15/2024 11:13 AM EDT) Anatomical Region Laterality Modality Computed Tomogra phy 11/15/2024 11:1 3 AM EDT Impressions 11/15/2024 12:11 PM EDT No hemodynamically significant stenosis, large vessel occlusion or aneurysm involving the neck or intracranial arterial vasculature. Narrative 11/15/2024 12:11 PM EDT EXAM: CTA HEAD NECK W CONTRAST STROKE HISTORY: episode of slurred speech, confusion, left jawline numbness, NIHSS 0 CN 0, LKW 0800 hrs COMPARISON: CT head performed contemporaneously reported separately. TECHNIQUE: Postcontrast CTA imaging of the head and neck was performed with coronal and sagittal reformats. Maximum intensity projection reformats were performed on a separate workstation. NASCET criteria was utilized. This CT exam was performed using one or more of the following dose reduction techniques: Automated exposure control, adjustment of the MA and/or kV according to patient size, or use of iterative reconstruction technique. FINDINGS: Aortic arch: Imaged portion shows no evidence of aneurysm. No significant stenosis of the major origins of the major arch vessels. Right carotid system: No evidence of significant (50% or greater) stenosis or occlusion. Left carotid system: No evidence of significant (50% or greater) stenosis or occlusion. Vertebral arteries: Codominant. No evidence of significant (50% or greater) stenosis or occlusion. Anterior circulation: No evidence of aneurysm, significant stenosis, or occlusion. Vertebrobasilar system: No evidence of aneurysm, significant stenosis, or occlusion. Venous sinuses: Grossly patent. Additional findings: Visualized portion of the lungs are clear. Procedure Note Patrizia Ramos DO - 11/15/2024 EXAM: CTA HEAD NECK W CONTRAST STROKE HISTORY: episode of slurred speech, confusion, left jawline numbness,NIHSS 0 CN 0, LKW 0800 hrs COMPARISON: CT head performed contemporaneously reported separately. TECHNIQUE: Postcontrast CTA imaging of the head and neck was performedwith coronal and sagittal reformats. Maximum intensity projection reformatswere performed on a separate workstation. NASCET criteria was utilized. This CTexam was performed using one or more of the following dose reductiontechniques: Automated exposure control, adjustment of the MA and/or kV according topatient size, or use of iterative reconstruction technique. FINDINGS: Aortic arch: Imaged portion shows no evidence of aneurysm. No significant stenosis of the major origins of the major arch vessels. Right carotid system: No evidence of significant (50% or greater) stenosisor occlusion. Left carotid system: No evidence of significant (50% or greater) stenosisor occlusion. Vertebral arteries: Codominant. No evidence of significant (50% orgreater) stenosis or occlusion. Anterior circulation: No evidence of aneurysm, significant stenosis, or occlusion. Vertebrobasilar system: No evidence of aneurysm, significant stenosis, or occlusion. Venous sinuses: Grossly patent. Additional findings: Visualized portion of the lungs are clear. IMPRESSION: No hemodynamically significant stenosis, large vessel occlusion oraneurysm involving the neck or intracranial arterial vasculature. us Bereket Pacheco MD IMG CT ORDERABLES Final R esult * CT HEAD WO CONTRAST (11/15/2024 11:03 AM EDT) Anatomical Region Laterality Modality Head Computed Tomogra phy 11/15/2024 11:0 3 AM EDT Impressions 11/15/2024 11:16 AM EDT No acute intracranial abnormality. Narrative 11/15/2024 11:16 AM EDT NONCONTRAST HEAD CT COMPARISON: Head CT 01/22/2021. CLINICAL HISTORY: Slurred speech. TECHNIQUE: Routine noncontrast images of the brain obtained. CT examination of the head without IV contrast. Dose reduction techniques were achieved by using: automated exposure control and/or adjustment of mA and /or kV according to patient size and/or use of iterative reconstruction technique. FINDINGS: Paranasal sinuses and mastoid air cells are clear. Intraorbital contents are unremarkable. No acute bony abnormality. Intracranially, there is no evidence of hemorrhage, mass effect, or midline shift. Ventricles and cisternal spaces are age appropriate. Procedure Note Guido Gregorio MD - 11/15/[address] COMPARISON: Head CT 01/22/2021. CLINICAL HISTORY: Slurred speech. TECHNIQUE: Routine noncontrast images of the brain obtained. CTexamination of the head without IV contrast. Dose reduction techniques were achieved byusing: automated exposure control and/or adjustment of mA and /or kV according to patient size and/or use of iterative reconstruction technique. FINDINGS: Paranasal sinuses and mastoid air cells are clear. Intraorbital contents are unremarkable. No acute bony abnormality. Intracranially, there is no evidence of hemorrhage, mass effect, ormidline shift. Ventricles and cisternal spaces are age appropriate. IMPRESSION: No acute intracranial abnormality. Bereket Pacheco MD IMG CT ORDERABLES Final R esult * Troponin (11/15/2024 9:59 AM EDT) Pathologist [facility] Troponin, High Sensitivity <6 0 - 14 ng/L 11/15/2024 9:59 AM EDT [facility] Comment:High Sensitivity Tro ponin values cannot be compared with other Troponin methodologies. Blood BLOOD SPECIMEN / Unknown 11/15/2024 9:59 AM EDT 11/15/2024 10:00 AM EDT Bereket Pacheco MD CHEMISTRY ORDERABLES Chacha l Result Performing Organization Address City/[facility]/ZIP Co de Phone Number [facility] [address] [phone] * Brain Natriuretic Peptide (11/15/2024 9:34 AM EDT) Pathologist [facility] NT Pro-BNP <36 <300 pg/mL 11/15/2024 9:34 AM EDT [facility] Comment: An age-independent cutoff point of 300 pg/ml has a 98% negative predictive value excluding acute heart failure. 11/15/2024 9:34 AM EDT 11/15/2024 9:35 AM EDT Bereket Pacheco MD CHEMISTRY ORDERABLES Chacha l Result [facility] [address] [facility] [address] [phone] * D-Dimer, Quantitative (11/15/2024 9:00 AM EDT) Pathologist [facility] D-Dimer, Quant 0.32 0.00 - 0.59 ug/mL FEU 11/15/2024 9:00 AM EDT [facility] Comment: When combined with a low clinical probability, a D dimer value of <0.50 ug/mL FEU is considered negative for DVT and PE (negative predictive value of 98%, sensitivity of 97%). If this test is not being used to help rule out DVT and PE, then the following reference range should be utilized: 0.00 - 0.59 ug/mL FEU. The D-Dimer assay is intended for [...] D-dimer results below the cutoff of 0.5 ug/mL FEU. This is known to be more prevalent in patients with distal DVT. Blood BLOOD SPECIMEN / Unknown 11/15/2024 9:00 AM EDT 11/15/2024 9:08 AM EDT us Bereket Pacheco MD HEMATOLOGY ORDERABLES Fin al Result [facility] [address] [place] [address], [facility] [phone] * Troponin (11/15/2024 9:00 AM EDT) [facility] Troponin, High Sensitivity <6 0 - 14 ng/L 11/15/2024 9:00 AM EDT [facility] Comment:High Sensitivity Tro ponin values cannot be compared with other Troponin methodologies. Blood BLOOD SPECIMEN / Unknown 11/15/2024 9:00 AM EDT 11/15/2024 9:01 AM EDT Bereket Pacheco MD CHEMISTRY ORDERABLES Chacha l Result Performing Organization Address [facility] Co de Phone Number [facility] [address] [place] [address], [facility] [phone] * HCG Qualitative, Serum (11/15/2024 9:00 AM EDT) Preg, Serum NEGATIVE NEGATIVE 11/15/2024 9:00 AM EDT [facility] Comment: Specimens with hCG levels near the threshold of the test (25 mIU/mL) may give a negative or indeterminate result. In such cases, another test should be performed with a new specimen in 48-72 hours. If early is suspected clinically in this setting, correlation with quantitative serum b-hCG level is suggested. [employer] has confirmed the use of plasma for this test. This has not been cleared or approved by the U.S. Food and Drug Administration. The FDA has determined that such clearance is not necessary. Blood BLOOD SPECIMEN / Unknown 11/15/2024 9:00 AM EDT 11/15/2024 9:01 AM EDT eBreket Pacheco MD CHEMISTRY ORDERABLES Chacha l Result Performing Organization Address [facility] Co de Phone Number [facility] [address] [place] [address], [facility] [phone] * (ABNORMAL) CBC with Auto Differential (11/15/2024 9:00 AM EDT) WBC 7.0 3.5 - 11.0 k/uL 11/15/2024 9:00 AM EDT [facility] RBC 4.49 4.00 - 5.20 m/uL 11/15/2024 9:00 AM EDT [facility] Hemoglobin 14.1 12.0 - 16.0 g/dL 11/15/2024 9:00 AM EDT [facility] Hematocrit 41.0 36.0 - 46.0 % 11/15/2024 9:00 AM [facility] [employer] [facility] MCV 91.3 80.0 - 100.0 fL 11/15/2024 9:00 AM [facility] MCH 31.4 26.0 - 34.0 pg 11/15/2024 9:00 AM [facility] MCHC 34.4 31.0 - 37.0 g/dL 11/15/2024 9:00 AM [facility] RDW 12.3 12.1 - 15.2 % 11/15/2024 9:00 AM [facility] [employer] [facility] Platelets 235 140 - 450 k/uL 11/15/2024 9:00 AM [facility] MPV 9.0 6.0 - 12.0 fL 11/15/2024 9:00 AM [facility] Neutrophils % 44(L) 47 - 75 % 11/15/2024 9:00 AM [facility] Lymphocytes % 44(H) 15 - 40 % 11/15/2024 9:00 AM [facility] Monocytes % 10(H) 4 - 8 % 11/15/2024 9:00 AM [facility] Eosinophils % 2 0 - 5 % 11/15/2024 9:00 AM [facility] Basophils % 0 0 - 2 % 11/15/2024 9:00 AM [facility] Immature Granulocytes % 0 0 - 5 % 11/15/2024 9:00 AM [facility] Neutrophils Absolute 3.05 2.5 - 7.0 k/uL 11/15/2024 9:00 AM [facility] Lymphocytes Absolute 3.04 1.00 - 4.80 k/uL 11/15/2024 9:00 AM [facility] Monocytes Absolute 0.72 0.00 - 1.00 k/uL 11/15/2024 9:00 AM [facility] [employer] [facility] Eosinophils Absolute 0.12 0.00 - 0.40 k/uL 11/15/2024 9:00 AM EDT [email or web address] [facility] Basophils Absolute 0.02 0.00 - 0.20 k/uL 11/15/2024 9:00 AM EDT [facility] Immature Granulocytes Absolute 0.00 0.00 - 0.30 k/uL 11/15/2024 9:00 AM EDT [facility] Blood BLOOD SPECIMEN / Unknown 11/15/2024 9:00 AM EDT 11/15/2024 9:01 AM EDT us Bereket Pacheco MD HEMATOLOGY ORDERABLES Fin al Result [facility] [address] [place] [address], [facility] [phone] * (ABNORMAL) BMP (11/15/2024 9:00 AM EDT) Sodium 138 135 - 144 mmol/L 11/15/2024 9:00 AM [facility] Potassium 4.4 3.7 - 5.3 mmol/L 11/15/2024 9:00 AM [facility] Chloride 106 98 - 107 mmol/L 11/15/2024 9:00 AM T [facility] CO2 22 20 - 31 mmol/L 11/15/2024 9:00 AM [facility] Anion Gap 10 9 - 17 mmol/L 11/15/2024 9:00 AM [facility] Glucose 104(H) 70 - 99 mg/dL 11/15/2024 9:00 AM T [facility] BUN 11 6 - 20 mg/dL 11/15/2024 9:00 AM T [facility] Creatinine 0.7 0.5 - 0.9 mg/dL 11/15/2024 9:00 AM [facility] Est, Glom Filt Rate >90 >60 mL/min/1.7 3m2 11/15/2024 9:00 AM T [facility] Comment: These results are not intended for use in patients <18 years of age. eGFR results are calculated without a race factor using the 2020 CKD-EPI equation. Careful clinical correlation is recommended, particularly when comparing to results calculated using previous equations. The CKD-EPI equation is less accurate in patients with extremes of muscle mass, extra-renal metabolism of creatine, excessive creatine ingestion, or following therapy that affects renal tubular secretion. Calcium 9.3 8.6 - 10.4 mg/dL 11/15/2024 9:00 AM EDT [facility] Blood BLOOD SPECIMEN / Unknown 11/15/2024 9:00 AM EDT 11/15/2024 9:01 AM EDT Bereket Pacheco MD CHEMISTRY ORDERABLES Chacha l Result Performing Organization Address City/[facility]/ZIP Co de Phone Number [facility] [address] [place] [address], [facility] [phone] * EKG 12 Lead (11/15/2024 8:57 AM EDT) Ventricular Rate 66 BPM [facility] Atrial Rate 66 BPM [facility] P-R Interval 126 ms [facility] QRS Duration 78 ms [facility] Q-T Interval 416 ms [facility] W [facility] QTc Calculation (Bazett) 436 ms PN W RADIOLOGY P [place] 88 degrees [facility] W RADIOLOGY R [place] 27 degrees PN [facility] T [place] 46 degrees [facility] 11/15/2024 8:57 AM EDT Narrative [facility] - 11/15/2024 9:34 AM EDT Normal sinus rhythm Normal ECG Procedure Note Garcia Burgos MD - 11/15/2024 Normal sinus rhythm Normal ECG Bereket Pacheco MD ECG ORDERABLES Final Res ult Performing Organization Address City/[facility]/ZIP Co de Phone Number [facility] documented in this encounter Visit Diagnoses Diagnosis TIA (transient ischemic attack)- Primary Unspecified transient cerebral ischemia Syncope and collapse Symptoms of dehydration Radicular pain in left arm Neuralgia, neuritis, and radiculitis, unspecified documented in this encounter Administered Medications Inactive Administered Medications - up to 3 most recent administrations Medication Order MAR Action Action Date Dose Rate Site iopamidol (ISOVUE-370) 76 % injection 100 mL 100 mL, IntraVENous, IMG ONCE PRN, 1 dose, Starting on Wed11/15/24 at 1051, Until Wed11/15/24 at 1114, Other Given 11/15/2024 11:14 AM EDT 100 mLs sodium chloride 0.9 % bolus 1,000 mL 1,000 mL (16.9 mL/kg), IntraVENous, at 495.9 mL/hr, Administer over 121 Minutes, ONCE, On Wed11/15/24 at 0915, For 1 dose New Bag 11/15/2024 9:10 AM EDT 1,000 mLs 495.9 mL/hr documented in this encounter Active and Recently Administered Medications Times are shown in EDT. Scheduled Medication Order 11/13/2024 11/14/2024 11/15/2024 sodium chloride 0.9 % bolus 1,000 mL (COMPLETED) 1,000 mL (16.9 mL/kg), IntraVENous, at 495.9 mL/hr, Administer over 121 Minutes, ONCE, On Wed11/15/24 at 0915, For 1 dose 0910 (New Bag - Prov ider: Sheree Truong RN)1054 (Stopped - Provider: Sheree Truong RN) PRN Medication Order 11/13/2024 11/14/2024 11/15/2024 iopamidol (ISOVUE-370) 76 % injection 100 mL (COMPLETED) 100 mL, IntraVENous, IMG ONCE PRN, 1 dose, Starting on Wed11/15/24 at 1051, Until Wed11/15/24 at 1114, Other 1114 (Given - Provid er: Adrienne Smith) documented in this encounter Care Teams Supervisor Cartography Relationship Specialty Start Date End Date Abhay Moreno MD [address] [place] [address] PCP - General 10/13/12 documented as of this encounter
--- OUTSIDE RECORDS SUMMARY | 2024-11-15 12:45 | XMS_ITS | Encounter Summary ---
Author Organization [facility] Address [address] [place] [address] Care Team Providers Care Land Title Examiner Name Role Phone Abhay Moreno MD Primary Care Provider [phone] Reason for Referral * Cardiology (Routine) - Closed Specialty Diagnoses / Procedures Referred By Contac t Referred To Contact Cardiology Diagnoses Syncope and collapse Procedures Extended cardiac holter monitor (3 days-14 day) IA EXTERNAL ECG REC>48HR<7D REVIEW & INTERPRETATION IA EXTERNAL ECG REC>48HR<7D RECORDING IA EXTERNAL ECG REC>7D<15D RECORDING IA EXTERNAL ECG REC>7D<15D REVIEW & INTERPRETATION Bereket Pacheco [place] [address] Phone: tel: fax: Referral ID Status Reason Start Date Expiration Date Visits Re quested Visits Authorized [id number] Closed 11/15/2024 11/15/2025 1 1 Reason for Visit * Cardiology (Routine) - Closed Specialty Diagnoses / Procedures Referred By Contac t Referred To Contact Cardiology Diagnoses Syncope and collapse Procedures Extended cardiac holter monitor (3 days-14 day) IA EXTERNAL ECG REC>48HR<7D REVIEW & INTERPRETATION IA EXTERNAL ECG REC>48HR<7D RECORDING IA EXTERNAL ECG REC>7D<15D RECORDING IA EXTERNAL ECG REC>7D<15D REVIEW & INTERPRETATION Bereket Pacheco [place] [address] Phone: tel: fax:[phone] Referral ID Status Reason Start Date Expiration Date Visits Re quested Visits Authorized [id number] Closed 11/15/2024 11/15/2025 1 1 Encounter Details Date Type Department Care Team (Latest Contact Info) Description 11/15/2024 12:45 PM EDT Hospital Encounter [facility] Non-Invasive Cardiology [address] [place] [address] Syncope and collapse Social History Tobacco Use Types Packs/Day Years [...] on file documented as of this encounter Plan of Treatment Pending Results Name Type Priority Associated Diagnoses Date/Time Extended cardiac holter monitor (3 days-14 day) CV Cardiac Diagnostics Routine Syncope and collapse 11/15/2024 12:57 PM EDT Scheduled Orders Name Type Priority Associated Diagnoses Order Schedule Extended cardiac holter monitor (3 days-14 day) CV Cardiac Diagnostics Routine Syncope and collapse 1 Occurrences starting 11/15/2024 until 11/15/2024 documented as of this encounter Visit Diagnoses Diagnosis Syncope and collapse documented in this encounter Care Teams Land Title Examiner Relationship Specialty Start Date End Date Abhay Moreno MD [address] [place] [address] PCP - General 10/13/12 documented as of this encounter
--- OUTSIDE RECORDS SUMMARY | 2024-11-16 15:00 | XMS_ITS | Encounter Summary ---
Author Organization [facility] Address [address] [place] [id number] Care Team Providers Care Information Security Manager Name Role Phone Abhay Moreno MD Primary Care Provider [phone] Linda Pastrana MD Unavailable [phone] Reason for Visit * Reason Comments Pre-op Visit Encounter Details Date Type Department Care Team (Late st Contact Info) Description 11/16/2024 3:00 PM EDT Consult [facility] [address] [place] [id number] Alexa Macias, OFFICE CLEANER [address] [place] [address] Arrived Social History Tobacco Use Types Packs/Day Years Used Date Smoking Tobacco: Every Day Cigarettes 0.5 20 Smokeless Tobacco: Never Tobacco Cessation:Ready to Q uit: Not Asked; Counseling Given: Not Answered Alcohol Use Standard Drinks/Week Comments Not Currently [...] Recorded Patient Health Questionnaire-2 Score 0 10/19/2024 [place] Safety & Environment Answer Date Rec orded [...] Sign Reading Time Taken Comments Blood Pressure 144/73 11/16/2024 2:53 PM EDT Pulse 70 11/16/2024 2:53 PM EDT Temperature - - Respiratory Rate - - Oxygen Saturation 100% 11/16/2024 2:53 PM EDT Inhaled Oxygen Concentration - - Weight 58.5 kg (129 lb) 11/16/2024 2:53 PM EDT Height 167.6 cm (5' 6 ) 11/16/2024 2:53 PM EDT Body Mass Index 20.82 11/16/2024 2:53 PM EDT documented in this encounter Plan of Treatment Upcoming Encounters Date Type Department Care Team (Late st Contact Info) Description 11/29/2024 8:30 AM EDT Hospital Encounter [facility] Main Operating Room [address] [place] [phone] Seng Rosado MD [address] [place] [address] 11/29/2024 8:30 AM EDT - 11/29/2024 12:00 PM EDT Surgery [facility] Main Operating Room [address] [place] [address] Seng Rosado MD [address] [place], [place] [id number] THORACOSCOPY, REMOVAL OF PERCARDIAL CYST [02696 (CPT )] Scheduled Procedures Name Priority Associated Diagnoses Date/Ti me THORACOSCOPY Pericardial cyst 11/29/2024 8:30 AM EDT documented as of this encounter Visit Diagnoses Not on filedocumented in this encounter Care Teams Information Security Manager Relationship Specialty Start Date End Date Abhay Moreno MD [address] [place] [place] [address] PCP - General 07/14/23 Linda Pastrana MD [address] [facility] [place] [id number] Consulting Physician Hematology and Oncology 07/14/23 documented as of this encounter
[2024-11-17 09:59] VITALS: BP 123/84; PULSE 60; TEMP 36.6; O2SAT 100; BMI 20.8
--- OUTSIDE RECORDS SUMMARY | 2024-11-17 10:03 | XMS_ITS | Patient Health Record ---
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 Name Role Phone Josh Giovanny Primary Care Provider Allergies Allergen (clinical drug ingredient) Drug/Non Drug Allergy documented on EMR Reaction Allergy Type Onset Date Status bacitracin Antibiotic Unknown Drug Allergy Activ e cephalexin Cephalexin anaphylaxis Drug Allergy Act kennedy Latex Latex skin peeling Allergy Active morphine Morphine codes Drug Allergy Active Penicillin anaphylaxis Drug Allergy Acti ve Results Component Value Reference Range Notes CBC AUTO DIFF Reviewed date:08/21/2024 02:07:51 PM Interpretation: Performing Lab: Notes/Report: [facility] , White Blood Count 6.5 4.0-11.0 10 3/uL Red Blood Count 4.40 4.20-5.40 10 6/uL Hemoglobin 14.3 12.0-16.0 g/dL Hematocrit 42.3 36.0-48.0 % Mean Corpuscular Volume 96.1 81.0-99.0 fL Mean Corpuscular Hemoglobin 32.5 26.7-34.0 pg Mean Corpuscular HGB Conc 33.8 29.9-35.2 g/dL Red Cell Distribution Width 12.4 11.0-15.0 % Platelet Count 248 150-450 10 3/uL Mean Platelet Volume 9.0 9.5-13.5 fL Neutrophils Percent Auto 45.1 43.0-75.0 % Lymphocytes Percent Auto 45.5 20.5-60.0 % Monocytes Percent Auto 7.6 1.7-12.0 % Eosinophils Percent Auto 1.1 0.9-7.0 % Basophils Percent Auto 0.5 0.2-2.0 % Immature Granulocytes Pct Auto 0.2 0.0-0.5 % Neutrophils Absolute Auto 2.9 1.4-6.5 10 3/uL Lymphocytes Absolute Auto 2.9 1.2-3.8 10 3/uL Monocytes Absolute Auto 0.5 0.3-0.8 10 3/uL Eosinophils Absolute Auto 0.1 0.0-0.7 10 3/uL Basophils Absolute Auto 0.0 0.0-0.1 10 3/uL Immature Granulocytes Abs Auto 0.01 0.00-0.03 10 3/uL Performing Lab: see note ML - [facility] LB FOLATE Reviewed date:08/21/2024 02:07:51 PM Interpretation: Performing Lab: Notes/Report: [facility] , Folate 10.20 8.60-58.90 ng/mL Performing Lab: see note ML - [facility] FREE T3 Reviewed date:08/21/2024 02:07:51 PM Interpretation: Performing Lab: Notes/Report: [facility] Free T3 2.64 2.18-3.98 pg/mL Performing Lab: see note ML - [facility] GLYCOHEMOGLOBIN A1C Reviewed date:08/21/2024 02:07:51 PM Interpretation: Performing Lab: Notes/Report: [facility] , Glycohemoglobin A1C 5.2 4.5-6.2 % ADA RECOMMENDED LIMIT 4.0 - 6.0 ADA THERAPEUTIC TARGET < 7.0 ACTION SUGGESTED > 7.0 Estimated Average Glucose 103 Performing Lab: see note ML - [facility] IRON Reviewed date:08/21/2024 02:07:51 PM Interpretation: Performing Lab: Notes/Report: [facility] , Iron 100.0 50.0-170.0 ug/dL Performing Lab: see note ML - [facility] LIPID PROFILE Reviewed date:08/21/2024 02:07:51 PM Interpretation: Performing Lab: Notes/Report: [facility] , Triglycerides 67 <=150 mg/dL Cholesterol 193 <=200 mg/dL HDL Cholesterol 70 40-60 mg/dL > or =60 mg/dl - LOW CARDIOVASCULAR RISK <40 mg/dl - HIGH CARDIOVASCULAR RISK LDL Cholesterol Calculated 110.0 <100 mg/dl OPTIMAL 100-129 mg/dl NEAR OR ABOVE OPTIMAL 130-159 mg/dl BORDERLINE HIGH 160-189 mg/dl HIGH >190 mg/dl VERY HIGH VLDL CHOLESTEROL 13.4 Chol HDL Ratio 2.8 3.3 - 4.4 LOW RISK 4.4 - 7.1 AVERAGE RISK 7.1 - 11.0 MODERATE RISK >11.0 HIGH RISK Performing Lab: see note - [facility] LB PROF 14(COMP METB) Reviewed date:08/21/2024 02:07:51 PM Interpretation: Performing Lab: Notes/Report: [facility] , Sodium 141 136-145 mmol/L Potassium 3.7 3.5-5.1 mmol/L Chloride 104 98-107 mmol/L Carbon Dioxide 27.1 21.0-32.0 mmol/L Anion Gap 13.6 Glucose 104 74-106 mg/dL Blood Urea Nitrogen 8.0 7.0-18.0 mg/dL Creatinine 0.80 0.55-1.02 mg/dL Estimated GFR ( Evy >60 >=60 mL/min/1.73m 2 Estimated GFR (Non- Brianna >60 >=60 mL/min/1.73m 2 BUN Creatinine Ratio 10.0 Calcium 8.8 8.5-10.1 mg/dL Bilirubin Total 0.6 0.2-1.0 mg/dL Aspartate Amino Transferase 11 15-37 U/L Alanine Aminotransferase 14 14-59 U/L Alkaline Phosphatase 79 46-116 U/L Total Protein 7.1 6.4-8.2 g/dL Albumin Level 3.8 3.4-5.0 g/dL Globulin 3.3 Albumin Globulin Ratio 1.2 Performing Lab: see note ML - [facility] LB T4 Reviewed date:08/21/2024 02:07:51 PM Interpretation: Performing Lab: Notes/Report: [facility] , T4 Thyroxine 8.20 4.80-13.90 ug/dL Performing Lab: see note ML - [facility] LB TSH Reviewed date:08/21/2024 02:07:51 PM Interpretation: Performing Lab: Notes/Report: [facility] , Thyroid Stimulating Hormone 0.904 0.358-3.740 uIU/mL Performing Lab: see note - [facility] LB VITAMIN D 25 [place] Reviewed date:08/21/2024 02:07:51 PM Interpretation: Performing Lab: Notes/Report: [facility] , Vitamin D 29.9 <20 ng/mL Vit D deficient 20-<30 ng/mL Vit D insufficient 30-100 ng/mL Vit D sufficient >100 ng/mL Potential Toxicity Performing Lab: see note ML - [facility] LB CA echo doppler complete Reviewed date:09/28/2024 09:10:59 PM Interpretation: Performing Lab: Notes/Report: Source Facility: [facility]-[address] [place] [address] Cardiology Report Signed Patient: NAHUM SEGOVIA MR#: [id number] : 1980 Acct:[id number] Age/Sex: 43 / F ADM Date: 09/27/24 Loc: CARD Attending Dr: Abhay Moreno M.D. Ordering Physician: Abhay Moreno M.D. Date of Service: 09/27/24 Procedure(s): CA echo doppler complete Accession Number(s): [id number] cc: Abhay Moreno M.D. Patient Name: NAHUM SEGOVIA MR#: [id number] : 1980 Exam Date: 09/27/2024 Ordering Doctor: DR Abhay Moreno . ECHOCARDIOGRAM REPORT PROCEDURE: CA ECHO DOPPLER COMPLETE INDICATIONS: Cardiac aneurysm, smoker COMPARISON: None. DESCRIPTION: COMPLETE ECHOCARDIOGRAM Real-time transthoracic echocardiography with 2D, M-mode, spectral and color flow Doppler performed. QUALITY: Technical quality was good. LEFT VENTRICLE: Normal chamber size. Normal left ventricular wall thickness. Global hypokinesis. LV EF: Severely reduced left ventricular systolic function, ejection fraction, visually 25% DIASTOLIC: Grade 1 diastolic dysfunction ATRIAL SEPTUM: Visually appears intact. LEFT ATRIUM: Normal chamber size. RIGHT ATRIUM: Normal chamber size. RIGHT VENTRICLE: Normal chamber size. Normal right ventricular systolic function. TRICUSPID VALVE: Normal mobility and thickness. No stenosis with trivial regurgitation. No evidence of pulmonary hypertension.RVSP 18 mmHg MITRAL VALVE: Normal mobility and thickness. No evidence of mitral valve stenosis. There is no mitral annular calcification. Trivial mitral regurgitation. AORTIC VALVE: Normal trileaflet appearance. No visible sclerosis. Normal leaflet mobility. No evidence of aortic valve stenosis. Trivial aortic regurgitation. AORTIC ROOT: Normal diameter and appearance. PULMONIC VALVE: Normal thickness and mobility. No stenosis. No regurgitation. PERICARDIUM: Free space seen along right atrium may represent pericardial cyst or localized pericardial effusion consistent with CT scan done at [facility] 08/29/2024. IVC: Collapes with inspirations. IVC is normal in size. PLEURA: CONCLUSION: Severely reduced LV systolic function in global fashion, EF 25 % Grade I diastolic dysfunction Trivial aortic regurgitation Free space seen along right atrium may represent pericardial cyst or localized pericardial effusion C/W abnormality noted on Chest CT done08/29/2024 Adult Echocardiography Procedure Report Left Ventricle LVEDD (3.7 - 5.6 cm): 4.82 cm LVESD (2.2 - 4.0 cm): 4.04 cm LVIVS thickness (0.6 - 1.2 cm): 0.78 cm LVPW thickness (0.5 - 1.0 cm): 0.71 cm e': 0.11 m/s E - e': 4.69 LVOT Max Gradient: 2.62 mm[Hg] LVOT Area (cm2): 0.81 m/s Peak Velocity (LVOT): 0.81 m/s Mean Velocity (LVOT): 0.52 m/s LVOT Diameter 2.30 cm Left Atrium LA Volume Index (2D A2C): 21.65 ml/m2 Left Atrium Systolic Dimension: 2.77 cm Mitral Valve MV E to A Ratio: 0.94 Mitral Valve A-Wave Peak Velocity: 0.56 m/s Mitral Valve E-Wave Peak Velocity: 0.53 m/s Right Ventricle Aorta AO Root Diam: 3.05 cm Aortic Valve AoV Area (Peak Marquise): 2.33 cm2, 2.33 cm2 AoV Area (VTI): 2.34 cm2, 2.34 cm2 Peak Velocity(Antegrade Flow): 1.45 m/s, 1.39 m/s Peak Gradient(Antegrade Flow): 8.38 mm[Hg], 7.74 mm[Hg] Mean Velocity(Antegrade Flow): 0.99 m/s, 0.95 m/s Mean Gradient(Antegrade Flow): 4.50 mm[Hg], 4.15 mm[Hg] Velocity Time Integral: 28.06 cm, 25.89 cm Tricuspid Valve Peak Velocity (Regurgitant Flow): 1.91 m/s Pulmonic Valve Mean Gradient: 1.38 mm[Hg] Mean Velocity: 0.55 m/s Peak Velocity: 0.82 m/s, 0.90 m/s Peak Gradient: 3.21 mm[Hg], 2.72 mm[Hg] Right Atrium Dictated by: Lai Chong MD on 09/27/2024 at 12:59 Approved by: Lai Chong MD on 09/27/2024 at 14:59 Dictated By: aLi Chong M.D. Signed By: 09/27/24 1500 DD/ 1459 TD/TT: Photographic Specialist: [place] [address] Cardiology Report Signed Patient: MICK SEGOVIA MR#: [id number] : 1980 Acct:[id number] Age/Sex: 43 / F ADM Date: 09/27/24 Loc: CARD Attending Dr: Meg Moreno M.D. Ordering Physician: Abhay Moreno M.D. Date of Service: 09/27/24 Procedure(s): CA ech o doppler complete Accession Number(s): [id number] cc: Abhay Moreno M.D. Patient Name: NAHUM SEGOVIA MR#: [id number] : 1980 Exam Date: 09/27/2024 Ordering Doctor: DR Abhay Moreno . ECHOCARDIOGRAM REPORT PROCEDURE: CA ECHO DOPPLER COMPLETE INDICATIONS: Cardia c aneurysm, smoker COMPARISON: None. DESCRIPTION: COMPLET E ECHOCARDIOGRAM Real-time transthoracic echocardiography wit h 2D, M-mode, spectral and color flow Doppler performed. QUALITY: Technical quality was good. LEFT VENTRICLE: Norm al chamber size. Normal left ventricular wall thickness. Global hypokinesis. LV EF: Severely redu jose alberto left ventricular systolic function, ejection fraction, visually 25% DIASTOLIC: Grade 1 diastolic dysfunction ATRIAL SEPTUM: Visua lly appears intact. LEFT ATRIUM: Normal chamber size. RIGHT ATRIUM: Normal chamber size. RIGHT VENTRICLE: Nor mal chamber size. Normal right ventricular systolic function. TRICUSPID VALVE: Nor mal mobility and thickness. No stenosis with trivial regurgitation. No evidence of pulmonary hypertension.RVSP 18 mmHg MITRAL VALVE: Normal mobility and thickness. No evidence of mitral valve stenosis. There is n o mitral annular calcification. Trivial mitral regurgitation. AORTIC VALVE: Normal trileaflet appearance. No visible sclerosis. Normal leaflet mobility. No evidence of aortic valve stenosis. Trivial aortic regurgitation. AORTIC ROOT: Normal diameter and appearance. PULMONIC VALVE: Norm al thickness and mobility. No stenosis. No regurgitation. PERICARDIUM: Free sp lorne seen along right atrium may represent pericardial cyst or localized pericardial effusion consistent with CT scan done at [facility] 08/29/2024. IVC: Collapes with inspirations. IVC is normal in size. PLEURA: CONCLUSION: Severely reduced LV systolic function in global fashion, EF 25 % Grade I diastolic dysfunction Trivial aortic regurgitation Free space seen zohaib g right atrium may represent pericardial cyst or localized pericardial effusion C/W abnormality noted on Chest CT done08/29/2024 Adult Echocardiograp hy Procedure Report Left Ventricle LVEDD (3.7 - 5.6 cm) : 4.82 cm LVESD (2.2 - 4.0 cm) : 4.04 cm LVIVS thickness (0.6 - 1.2 cm): 0.78 cm LVPW thickness (0.5 - 1.0 cm): 0.71 cm e': 0.11 m/s E - e': 4.69 LVOT Max Gradient: 2 .62 mm[Hg] LVOT Area (cm2): 0.81 m/s Peak Velocity (LVOT) : 0.81 m/s Mean Velocity (LVOT) : 0.52 m/s LVOT Diameter 2.30 cm Left Atrium LA Volume Index (2D A2C): 21.65 ml/m2 Left Atrium Systolic Dimension: 2.77 cm Mitral Valve MV E to A Ratio: 0.94 Mitral Valve A-Wave Peak Velocity: 0.56 m/s Mitral Valve E-Wave Peak Velocity: 0.53 m/s Right Ventricle Aorta AO Root Diam: 3.05 cm Aortic Valve AoV Area (Peak Marquise): 2.33 cm2, 2.33 cm2 AoV Area (VTI): 2.34 cm2, 2.34 cm2 Peak Velocity(Antegr ojrgito Flow): 1.45 m/s, 1.39 m/s Peak Gradient(Antegr jorgito Flow): 8.38 mm[Hg], 7.74 mm[Hg] Mean Velocity(Antegr jorgito Flow): 0.99 m/s, 0.95 m/s Mean Gradient(Antegr jorgtio Flow): 4.50 mm[Hg], 4.15 mm[Hg] Velocity Time Integr al: 28.06 cm, 25.89 cm Tricuspid Valve Peak Velocity (Regurgitant Flow): 1.91 m/s Pulmonic Valve Mean Gradient: 1.38 mm[Hg] Mean Velocity: 0.55 m/s Peak Velocity: 0.82 m/s, 0.90 m/s Peak Gradient: 3.21 mm[Hg], 2.72 mm[Hg] Right Atrium Dictated by: Lai Chong MD on 09/27/2024 at 12:59 Approved by: Lai Chong MD on 09/27/2024 at 14:59 Dictated By: Lai Chong M.D. Signed By: 09/27/24 1500 DD/ 1459 TD/TT: Photographic Specialist: CBC AUTO DIFF Reviewed date:10/16/2024 08:10:34 PM Interpretation: Performing Lab: Notes/Report: [facility] , White Blood Count 7.7 4.0-11.0 10 3/uL Red Blood Count 4.07 4.20-5.40 10 6/uL Hemoglobin 13.3 12.0-16.0 g/dL Hematocrit 38.3 36.0-48.0 % Mean Corpuscular Volume 94.1 81.0-99.0 fL Mean Corpuscular Hemoglobin 32.7 26.7-34.0 pg Mean Corpuscular HGB Conc 34.7 29.9-35.2 g/dL Red Cell Distribution Width 12.0 11.0-15.0 % Platelet Count 228 150-450 10 3/uL Mean Platelet Volume 9.1 9.5-13.5 fL Neutrophils Percent Auto 37.3 43.0-75.0 % Lymphocytes Percent Auto 51.3 20.5-60.0 % Monocytes Percent Auto 9.8 1.7-12.0 % Eosinophils Percent Auto 0.9 0.9-7.0 % Basophils Percent Auto 0.4 0.2-2.0 % Immature Granulocytes Pct Auto 0.3 0.0-0.5 % Neutrophils Absolute Auto 2.9 1.4-6.5 10 3/uL Lymphocytes Absolute Auto 3.9 1.2-3.8 10 3/uL Monocytes Absolute Auto 0.8 0.3-0.8 10 3/uL Eosinophils Absolute Auto 0.1 0.0-0.7 10 3/uL Basophils Absolute Auto 0.0 0.0-0.1 10 3/uL Immature Granulocytes Abs Auto 0.02 0.00-0.03 10 3/uL Performing Lab: see note - [facility] LB Troponin I High Sensitivity Reviewed date:10/16/2024 08:10:34 PM Interpretation: Performing Lab: Notes/Report: [facility] , Troponin I High Sensitivity 4.3 4.0-51.3 pg/mL CUT-OFF POINTS HAVE BEEN ESTABLISHED BASED ON THE FOURTH UNIVERSAL DEFINITION OF MYOCARDIAL INFARCTION. THE UPPER REFERENCE LIMIT (URL) OF TROPONIN, DEFINED THE 99TH PERCENTILE OF cTnI DISTRIBUTION IN A REFERENCE POPULATION, HAS BEEN CONFIRMED THE DECISION THRESHOLD FOR CA DIAGNOSIS. 99TH PERCENTILE = 51.4 PG/ML NOTE: HIGH-SENSITIVITY TROPONIN ASSAY IS NOT INTENDED TO BE USED IN ISOLATION BUT SHOULD BE INTERPRETED IN CONJUNCTION WITH OTHER DIAGNOSTIC AND CLINICAL INFORMATION. Performing Lab: see note - [facility] HCG Qualitative* Reviewed date:10/16/2024 08:10:34 PM Interpretation: Performing Lab: Notes/Report: [facility] , HCG Qualitative NEGATIVE NEGATIVE Performing Lab: see note - [facility] LB ECG 12 lead Reviewed date:10/16/2024 08:10:34 PM Interpretation: Performing Lab: Notes/Report: Source Facility: [facility]-[address] [place] [address] [place] [address] Electrocardiograph Report Draft Patient: NAHUM SEGOVIA MR#: [id number] : 1980 Acct:[id number] Age/Sex: 43 / F ADM Date: Loc: ER Attending Dr: Ordering Physician: Dafne Mendez Date of Service: 10/15/24 Procedure(s): ECG 12 lead Accession Number(s): [id number] cc: [facility] Test Date: 2024-10-15 Pat Name: NAHUM SEGOVIA Department: Room: - Gender: Female 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 Optician: : 1980 Requested By: 1854 Order Number: [id number] Reading MD: Measurements Intervals [place] Rate: 73 P: 76 NV: 146 QRS: 76 QRSD: 86 T: 65 QT: 392 QTc: 418 Interpretive Statements 1100 Sinus rhythm 9110 normal ECG No previous ECG available for comparison Dictated By: Carmen Cole Signed By: DD/ 1159 TD/TT: Photographic Specialist: [place] [address] Electrocardiograph Report Draft Patient: MICK SEGOVIA MR#: [id number] : 1980 Acct:[id number] Age/Sex: 43 / F ADM Date: Loc: ER Attending Dr: Ordering Physician: Dafne Mendez Date of Service: 10/15/24 Procedure(s): ECG 12 lead Accession Number(s): [id number] cc: [facility] Test Date: 2024-10-15 Pat Name: NAHUM FOURNIER Department: 71 Room: - Gender: Female Dispensing Optician: : 1980 Requested By: 1854 Order Number: [id number] Reading MD: Measurements Intervals [place] Rate: 73 P: 76 NV: 146 QRS: 76 QRSD: 86 T: 65 QT: 392 QTc: 418 Interpretive Statements 1100 Sinus rhythm 9110 normal ECG No previous ECG avai lable for comparison Dictated By: Carmen Cole Signed By: DD/ 115 TD/TT: Photographic Specialist: Troponin I High Sensitivity Reviewed date:10/16/2024 08:10:34 PM Interpretation: Performing Lab: Notes/Report: [facility] , Troponin I High Sensitivity 4.4 4.0-51.3 pg/mL CUT-OFF POINTS HAVE BEEN ESTABLISHED BASED ON THE FOURTH UNIVERSAL DEFINITION OF MYOCARDIAL INFARCTION. THE UPPER REFERENCE LIMIT (URL) OF TROPONIN, DEFINED THE 99TH PERCENTILE OF cTnI DISTRIBUTION IN A REFERENCE POPULATION, HAS BEEN CONFIRMED THE DECISION THRESHOLD FOR CA DIAGNOSIS. 99TH PERCENTILE = 51.4 PG/ML NOTE: HIGH-SENSITIVITY TROPONIN ASSAY IS NOT INTENDED TO BE USED IN ISOLATION BUT SHOULD BE INTERPRETED IN CONJUNCTION WITH OTHER DIAGNOSTIC AND CLINICAL INFORMATION. Performing Lab: see note ML - [facility] LB ECG 12 lead Reviewed date:10/16/2024 08:10:34 PM Interpretation: Performing Lab: Notes/Report: Source Facility: [place] [address] [place] [address] Electrocardiograph Report Signed Patient: NAHUM SEGOVIA MR#: [id number] : 1980 Acct:[id number] Age/Sex: 43 / F ADM Date: 10/15/24 Loc: ER Attending Dr: Ordering Physician: Dafne Mendez Date of Service: 10/15/24 Procedure(s): ECG 12 lead Accession Number(s): [id number] cc: [facility] Test Date: 2024-10-15 Pat Name: NAHUM SEGOVIA Department: Room: - Gender: Female Dispensing Optician: : 1980 Requested By: 1854 Order Number: [id number] Malika MD: SARAH FIELDS M.D. Measurements Intervals [place] Rate: 73 P: 76 NV: 146 QRS: 76 QRSD: 86 T: 65 QT: 392 QTc: 418 Interpretive Statements 1100 Sinus rhythm 9110 normal ECG Compared to ECG 02/18/2023 13:43:57 No significant changes Electronically Signed On 10-16-2024 7:44:21 EDT by SARAH FIELDS M.D. Dictated By: SARAH FIELDS Signed By: 10/16/24 0744 DD/ 1159 TD/TT: Photographic Specialist: [place] [address] Electrocardiograph Report Signed Patient: MICK SEOGVIA MR#: [id number] : 1980 Acct:[id number] Age/Sex: 43 / F ADM Date: 10/15/24 Loc: ER Attending Dr: Ordering Physician: Dafne Mendez Date of Service: 10/15/24 Procedure(s): ECG 12 lead Accession Number(s): [id number] cc: [facility] Test Date: 2024-10-15 Pat Name: NAHUM FOURNIER Department: 71 Room: - Gender: Female Dispensing Optician: : 1980 Requ ested By: 1854 Order Number: [id number] Reading MD: SARAH FIELDS M.D. Measurements Intervals [place] Rate: 73 P: 76 NV: 146 QRS: 76 QRSD: 86 T: 65 QT: 392 QTc: 418 Interpretive Statements 1100 Sinus rhythm 9110 normal ECG Compared to ECG 02/18/2023 13:43:57 No significant changes Electronically Tiana d On 10-16-2024 7:44:21 EDT by SARAH FIELDS M.D. Dictated By: SARAH FIELDS Signed By: 10/16/24 0744 DD/ 1159 TD/TT: Photographic Specialist: [facility] Reviewed date:10/02/2024 08:07:59 PM Interpretation: Performing Lab: Notes/Report: [facility] , Sodium 141 136-145 mmol/L Potassium 4.0 3.5-5.1 mmol/L Chloride 106 98-107 mmol/L Carbon Dioxide 28.5 21.0-32.0 mmol/L Anion Gap 10.5 Glucose 85 74-106 mg/dL Blood Urea Nitrogen 7.0 7.0-18.0 mg/dL Creatinine 0.89 0.55-1.02 mg/dL Estimated GFR ( Evy >60 >=60 mL/min/1.73m 2 Estimated GFR (Non- Brianna >60 >=60 mL/min/1.73m 2 BUN Creatinine Ratio 7.9 Calcium 8.7 8.5-10.1 mg/dL Performing Lab: see note ML - [facility] LB CBC AUTO DIFF Reviewed date:10/02/2024 08:07:59 PM Interpretation: Performing Lab: Notes/Report: [facility] , White Blood Count 7.3 4.0-11.0 10 3/uL Red Blood Count 4.17 4.20-5.40 10 6/uL Hemoglobin 13.7 12.0-16.0 g/dL Hematocrit 39.2 36.0-48.0 % Mean Corpuscular Volume 94.0 81.0-99.0 fL Mean Corpuscular Hemoglobin 32.9 26.7-34.0 pg Mean Corpuscular HGB Conc 34.9 29.9-35.2 g/dL Red Cell Distribution Width 12.2 11.0-15.0 % Platelet Count 254 150-450 10 3/uL Mean Platelet Volume 9.1 9.5-13.5 fL Neutrophils Percent Auto 39.7 43.0-75.0 % Lymphocytes Percent Auto 50.1 20.5-60.0 % Monocytes Percent Auto 8.9 1.7-12.0 % Eosinophils Percent Auto 0.7 0.9-7.0 % Basophils Percent Auto 0.5 0.2-2.0 % Immature Granulocytes Pct Auto 0.1 0.0-0.5 % Neutrophils Absolute Auto 2.9 1.4-6.5 10 3/uL Lymphocytes Absolute Auto 3.7 1.2-3.8 10 3/uL Monocytes Absolute Auto 0.7 0.3-0.8 10 3/uL Eosinophils Absolute Auto 0.1 0.0-0.7 10 3/uL Basophils Absolute Auto 0.0 0.0-0.1 10 3/uL Immature Granulocytes Abs Auto 0.01 0.00-0.03 10 3/uL Performing Lab: see note ML - [facility] LB Vitamin B12 Reviewed date:08/22/2024 03:51:20 PM Interpretation: Performing Lab: Notes/Report: [facility] , Vitamin B12 [phone] pg/mL Performed at: [address] [id number] Therapist Radiation: Gabriel Pretty PhD, Phone: [phone] Performing Lab: see note [facility] INSULIN Reviewed date:08/22/2024 03:51:20 PM Interpretation: Performing Lab: Notes/Report: [facility] , Insulin 9.4 2.6-24.9 uIU/mL Performed at: [address] [id number] Therapist Radiation: Gabriel Pretty PhD, Phone: [phone] Performing Lab: see note [facility] LB PROF 14(COMP METB) Reviewed date:10/16/2024 08:10:34 PM Interpretation: Performing Lab: Notes/Report: [facility] , Sodium 134 136-145 mmol/L Potassium 3.5 3.5-5.1 mmol/L Chloride 103 98-107 mmol/L Carbon Dioxide 28.6 21.0-32.0 mmol/L Anion Gap 5.9 Glucose 108 74-106 mg/dL Blood Urea Nitrogen 7.0 7.0-18.0 mg/dL Creatinine 0.90 0.55-1.02 mg/dL Estimated GFR ( Evy >60 >=60 mL/min/1.73m 2 Estimated GFR (Non- Brianna >60 >=60 mL/min/1.73m 2 BUN Creatinine Ratio 7.8 Calcium 8.8 8.5-10.1 mg/dL Bilirubin Total 0.4 0.2-1.0 mg/dL Aspartate Amino Transferase 15 15-37 U/L Alanine Aminotransferase 28 14-59 U/L Alkaline Phosphatase 64 46-116 U/L Total Protein 6.6 6.4-8.2 g/dL Albumin Level 3.6 3.4-5.0 g/dL Globulin 3.0 Albumin Globulin Ratio 1.2 Performing Lab: see note ML - [facility] Reason For Referral Diagnosis 1 Cardiac aneurysm (I2 5.3) Referral Organization [facility] Referring Provider First Name Giovanny Referring Provider Last Name Josh Referring Provider Speciality [facility] Referred Provider [facility] Cardiology, [facility] Referred Provider Specialty Cardiology Referral Priority Routine Medications Medication SIG (Take, Route, Frequency, Duration) Notes Start Date End Date Status Vitamin D (Cholecalciferol) 50 MCG (1999) 1 capsule Orally Once a day for 30 days 08/10/2023 Active Vitamin B 12 Active Valium 5 MG 1 tablet as needed O rally once about 1 hour before procedure for 1 days 10/18/2024 Active ALPRAZolam 0.25 MG 1 tablet Orally Twice a day for 14 days F41.9 11/14/2024 Active Social History Tobacco Use: Social History Observation Description Date Details (start date - stop date) Current Smoker 06/14/1999 - NA Tobacco Use/Smoking Question Answer Notes Patient is a current smoker When did you start smoking? 06/14/1999 How often do you smoke cigarettes? every day How many cigarettes a day do you smoke? 6-10 How soon after you wake up d o you smoke your first cigarette? 6-30 minutes Are you interested in quitting? Thinking about q uitting Alcohol Screen (Audit-C) Question Answer Notes Did you have a drink containing alcohol in the p ast year? No Points 0 Interpretation Negative AUDIT-C (Standard) Question Answer Notes Did you have a drink containing alcohol in the p ast year? No Points 0 Interpretation Negative Problems Problem Type SNOMED Code ICD Code Onset Dates Problem Status W/U Status Risk Notes Problem 73584712 Hypothyroidism, unspecified (E03.9) Active confirmed Problem 78617120 Leiomyoma of uterus, unspecified (D25.9) Active confirmed Problem 49906871 Vitamin D deficiency, unspecified (E55.9) Active confirmed Problem Peripheral vertigo (95730839) Other peripheral vertigo, unspecified ear (H81.399) Active confirmed Problem [id number] Pain in right hand (M79.641) Active confirmed Problem [id number] Pain in left lockhart d (M79.642) Active confirmed Problem 01566622 Acute cystitis with hematuria (N30.01) Active confirmed Problem 97215564 Other specified conditions associated with female genital organs and menstrual cycle (N94.89) Active confirmed Problem Palpitations (82986191) Palpitations (R00.2) Active confirmed Problem Weakness (67238606) Weakness (R53.1) Active con firmed Problem Jaw pain (465011794) Jaw pain (R68.84) Active c onfirmed Problem Contusion of wrist (07273422) Contusion of right wrist, initial encounter (S60.211A) Active confirmed Problem Contusion of right knee (04587193612022798) Contusion of right knee, sequela (S80.01XS) Active confirmed Problem Exposure to communicable disease (779119237) Contact with and (suspected) exposure to other viral communicable diseases (Z20.828) Active confirmed Problem Esophageal reflux (448745233) Esophageal reflux (K21.9) Active confirmed Problem Degeneration of cervical intervertebral disc (45575934) Degenerative disc disease, cervical (M50.30) Active confirmed Problem Lumbar radiculopathy (894228107) Lumbar radiculopathy (M54.16) Active confirmed Problem Amnesia (91782331) Memory change (R41.3) Active confirmed Problem Leiomyoma of uterus (15076166) Leiomyoma of uterus (D25.9) Active confirmed Problem Gastritis (2318704) Gastritis (K29.70) Active confirmed Problem Well adult (464970218) Well adult (Z00.00) Active confirmed Problem Diverticulitis (00871070) Diverticulitis (K57.92) Active confirmed Problem Contact dermatitis (37027062) Contact dermatitis (L25.9) Active confirmed Problem Dumping syndrome (42042116) Dumping 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) Active confirmed Problem Acute diarrhea (495303590) Acute diarrhea (R19.7) Active confirmed Problem Fibrocystic breast changes (96819303) Fibrocystic breast disease (N60.19) Active confirmed Problem Herpetic fallon (81048594) Herpetic fallon (B00.89) Active confirmed Problem Left upper quadrant pain (943844404) Abdominal pain, LUQ (R10.12) Active confirmed Problem Inguinal hernia (770789599) Hernia, inguinal, left (K40.90) Active confirmed Problem Inguinal lymphadenopathy (598953800) Inguinal lymphadenopathy (R59.0) Active confirmed Problem Shoulder impingement syndrome (119797114) Shoulder impingement syndrome (M75.40) Active confirmed Problem Irregular intermenstrual bleeding (44840393) Irregular intermenstrual bleeding (N92.1) Active confirmed Problem Cardiac aneurysm (54217451) Cardiac aneurysm (I25.3) Active confirmed Problem Plain X-ray of chest abnormal (finding) (3536268568) Abnormal chest x-ray (R93.89) Active confirmed Problem Low back pain (575480331) Low back pain, unspecified (M54.50) Active confirmed Problem Cough (finding) (39836561) Cough, unspecified (R05.9) Active confirmed Vital Signs Blood pressure diastolic 90 mm Hg 08/17/2024 Height 66 in 08/17/2024 Blood pressure systolic 142 mm Hg 08/17/2024 Weight 130.8 lbs 08/17/2024 BMI 21.11 kg/m2 08/17/2024 Procedures Procedure Date Ordered Date Performed Result Body Sit e Echocardiogram 08/29/2024 N/A Encounters Encounter Location Date Provider Diagnosis [facility] [address] [place] [address] 09/28/2024 [facility] [address] [place] [address] 10/02/2024 [facility] [address] [place] [address] 10/02/[address] [facility] [address] [facility] [place] [address] 10/18/[address] [facility] [address] [facility] [place] [address] 11/08/[address] [facility] [address] [facility] [place] [address] 11/14/[address] [facility] [address] [facility] [place] [address] 08/15/2024 Giovanny Moreno Abnormal chest x-ray R93.89 [facility] [address] [facility] [place] [address] 08/21/[address] [facility] [address] [facility] [place] [address] 08/29/2024 Giovanny Longy Cardiac aneurysm I25 .3 [facility] [address] [facility] [place] [address] 08/17/2024 Giovanny Longy Cardiac aneurysm I25 .3 and Memory change R41.3 Assessments Encounter Date Diagnosis (ICD Code) Assessment Notes Treatment Notes Treatment Clinical Notes Section Notes 08/17/2024 Cardiac aneurysm (ICD-10 - I25.3) 08/17/2024 Memory change (ICD-10 - R41.3) 08/15/2024 Abnormal chest x-ray (ICD-10 - R93.89) 08/29/2024 Cardiac aneurysm (ICD-10 - I25.3) Plan Of Treatment Pending Test Test Name Order Date CMP (COMPLETE METABOLIC PANEL) CMP (COMPLETE METABOLIC PANEL) UA (URINALYSIS, COMPLETE) 09/21/2022 CULTURE, URINE w SENSITIVITY 09/21/2022 HEMOGLOBIN A1C (GLYCO) 08/06/2023 HEMOGLOBIN A1C (GLYCO) 08/17/2024 HEMOGLOBIN A1C (GLYCO) 10/27/2023 IRON, TOTAL 08/17/2024 IRON, TOTAL 10/27/2023 IRON, TOTAL 08/06/2023 LIPID PANEL (CHOL/TRIG/HDL/LDL) 08/06/19 LIPID PANEL (CHOL/TRIG/HDL/LDL) 10/27/19 24 LIPID PANEL (CHOL/TRIG/HDL/LDL) 08/18/19 25 CBC WITH DIFF 08/17/2024 CBC WITH DIFF 10/27/2023 CBC WITH DIFF 08/06/2023 VITAMIN D, 25 LEVEL (TOTAL) 08/06/2023 VITAMIN D, 25 LEVEL (TOTAL) 10/27/2023 VITAMIN D, 25 LEVEL (TOTAL) 08/17/2024 Echocardiogram 08/29/2024 Insulin Level 08/17/2024 Insulin Level 08/06/2023 STOOL OCCULT BLOOD 08/17/2024 QUANTIFERON TB GOLD PLUS 10/27/2023 VIT B12 AND FOLATE 08/17/2024 VITAMIN D 25 [place] 08/09/2023 CT CHEST W CON 08/15/2024 XR LSPINE 2_3 VIEWS 08/06/2023 THYROID PANEL (T4/TSH/FREE T3) 4 THYROID PANEL (T4/TSH/FREE T3) 4 THYROID PANEL (T4/TSH/FREE T3) 4 THYROID PANEL (T4/TSH/FREE T3) 5 CMP (COMP MET LOPEZ) w/eGFR CKD-EPI 2024 Insurance Providers Payer Name Payer Address Payer Phone Subscriber Number Group Number Insured Name Patient Relationship to Insured Coverage Start Date Coverage End Date [employer] [address] [place] [address] [id number] Nahum Prieto Self - patient is the insured Medications Administered Medication Instructions Date of Administration Dosage Notes Kenalog-40 08/06/2023 80 mg Ketorolac Tromethamine 08/06/2023 60 mg Orphenadrine Citrate 08/06/2023 60 mg Medical (General) History Medical History History ICD Code Acute cystitis with hematuria N30.01 Acute diarrhea R19.7 Gastritis K29.70 Contact with and (suspected) exposure to other viral communicable diseases Z20.828 Cough, unspecified R05.9 Herpetic fallon B00.89 Pain in right hand M79.641 Pain in left hand M79.642 Shoulder impingement syndrome M75.40 Degenerative disc disease, cervical M50. 30 Jaw pain R68.84 Other peripheral vertigo, unspecified ea r H81.399 Contusion of right wrist, initial encoun ter S60.211A Contusion of right knee, sequela S80.01X S Contact dermatitis L25.9 Abdominal pain, LUQ R10.12 Esophageal reflux K21.9 Inguinal lymphadenopathy R59.0 Hernia, inguinal, left K40.90 Diverticulitis K57.92 Leiomyoma of uterus D25.9 Low back pain, unspecified M54.50 Irregular intermenstrual bleeding N92.1 Physical exam, routine Z00.00 Fibrocystic breast disease N60.19 Dumping syndrome K91.1 Palpitations R00.2 Surgical History Surgery Date(Month/Year) Gallbladder Tubal and ablation Breast lumpectomy
--- OUTSIDE RECORDS SUMMARY | 2024-11-17 10:03 | XMS_ITS | Encounter Summary ---
Author Organization [facility] Address [address] [place] [address] Care Team Providers Care Sample Clerk Name Role Phone Abhay Moreno MD Primary Care Provider [phone] Reason for Referral * Imaging (Emergency) - Closed Specialty Diagnoses / Procedures Referred By Contnito bobby Referred To Contact Radiology Diagnoses Contusion of head, unspecified part of head, initial encounter Procedures CT HEAD WO CONTRAST Mariya Landrum APRN - NP [facility] [address] [place] [address] Phone: tel: Referral ID Status Reason Start Date Expiration Date Visits Re quested Visits Authorized [id number] Closed 01/22/2021 01/22/2022 1 1 Encounter Details Date Type Department Care Team (Latest Contact Info) Description 01/22/2021 Transcribe Orders [facility] [address] [id number] Mariya Landrum APRN - NP Contusion of head, unspecified part of head, initial encounter (Primary Dx) Social History Tobacco Use Types Packs/Day Years Used Date Smoking Tobacco: Every Day Cigarettes Smokeless Tobacco: Never Alcohol Use Standard Drinks/Week Comments No 0 (1 standard drink = 0.6 oz pur e alcohol) Comments No Sex and Gender Information Value Date Recorded Sex Assigned at Not on file Legal Sex Female 3:26 PM EST Gender Identity Not on file Sexual Orientation Not on file COVID-19 Exposure Response Date Recorded In the last month, have you been in contact with someone who was confirmed or suspected to have Coronavirus / COVID-19? No / Unsure 01/24/2021 11:31 AM EDT documented as of this encounter Plan of Treatment Not on file documented as of this encounter Results * CT HEAD WO CONTRAST (01/22/2021 11:02 AM EDT) Anatomical Region Laterality Modality Head Computed Tomogra phy 01/22/2021 11:0 5 AM EDT Impressions 01/22/2021 11:11 AM EDT No evidence of acute intracranial hemorrhage, hematoma or other structural abnormality. Brain CT is stable compared to January 10, 2018. Intact calvarium and skull base. Narrative 01/22/2021 11:11 AM EDT EXAMINATION: CT HEAD WO CONTRAST [...] hemorrhage or hematoma. No focal abnormal density. Procedure Note Bhaskar Bergman DO - 01/22/2021 EXAMINATION: CT HEAD WO CONTRAST HISTORY: Is the patient ?->No . Patient states head trauma one day earlier. COMPARISON: January 10, 2018. TECHNIQUE: CT examination of the head without IV contrast. Dose reduction techniques were achieved by using automated exposurecontrol and/or adjustment of mA and/or kV according to patient size and/or use of iterative reconstruction technique. FINDINGS: The extracranial soft tissues appear to be intact. No largescalp hematoma identified. The appearance of the globes and orbital soft tissuesis normal. I am seeing intact calvarium and basal skull. No fluid levels inthe middle ear mastoid cavities or basal paranasal sinuses. Structures of the craniocervical junction are appropriately configured. Intracranial midline markers are appropriately positioned and configured.There are normal dimensions of the ventricles and cisterns. No evidence of intracranial hemorrhage or hematoma. No focal abnormal density. IMPRESSION: No evidence of acute intracranial hemorrhage, hematoma or other structural abnormality. Brain CT is stable compared to January 10, 2018. Intact calvarium and skull base. us Mariya Diallo DUAL RATE DEALER - REGULATION SUPERVISOR IMG CT ORDERABLES Final R esult documented in this encounter Visit Diagnoses Diagnosis Contusion of head, unspecified part of head, initial encounter- Primary Contusion of head, unspecified part of head, initial encounter documented in this encounter Additional Health Concerns Infection Onset Date Last Indicated Resolved Time COVID-19 (Rule Out) 09/04/2021 09/04/2021 09/05/19 22 8:39 AM EDT documented as of this encounter Care Teams Sample Clerk Relationship Specialty Start Date End Date Abhay Moreno MD [address] [place] [address] PCP - General 10/13/12 documented as of this encounter
--- OUTSIDE RECORDS SUMMARY | 2024-11-17 10:04 | XMS_ITS | Encounter Summary ---
Author Organization [facility] Address [address] [place] [address] Care Team Providers Care Benefits Sales Consultant Name Role Phone Abhay Moreno MD Primary Care Provider Linda Pastrana MD Unavailable [phone] Encounter Details Date Type Department Care Team (Late st Contact Info) Description 11/09/2024 Telephone [facility] [address] [place] [address] Yaa Mac MA Social History Tobacco Use Types Packs/Day Years [...] Recorded Patient Health Questionnaire-2 Score 0 10/19/2024 [place] Safety & Environment Answer Date Rec orded [...] PM EST documented as of this encounter Plan of Treatment Upcoming Encounters Date Type Department Care Team (Late st Contact Info) Description 11/29/2024 8:30 AM EDT Hospital Encounter [facility] Main Operating Room [address] [place] [address] Seng Rosado MD [address] [place] [address] 11/29/2024 8:30 AM EDT - 11/29/2024 12:00 PM EDT Surgery [facility] Main Operating Room [address] [place] [id number] Seng Rosado MD [address] [place] [address] THORACOSCOPY, REMOVAL OF PERCARDIAL CYST [69519 (CPT )] Scheduled Procedures Name Priority Associated Diagnoses Date/Ti me THORACOSCOPY Pericardial cyst 11/29/2024 8:30 AM EDT documented as of this encounter Visit Diagnoses Not on filedocumented in this encounter Care Teams Benefits Sales Consultant Relationship Specialty Start Date End Date Abhay Moreno MD [address] [facility] [address] [address] PCP - General 07/14/23 Linda Pastrana MD [address] [place] [address] Consulting Physician Hematology and Oncology 07/14/23 documented as of this encounter
--- OUTSIDE RECORDS SUMMARY | 2024-11-17 10:04 | XMS_ITS | Encounter Summary ---
Author Organization [facility] Address [address] [place] [address] Care Team Providers Care Director Radiation Oncology Name Role Phone Abhay Moreno MD Primary Care Provider [phone] Linda Pastrana MD Unavailable [phone] Encounter Details Date Type Department Care Team (Late st Contact Info) Description 2024 Orders Only [facility] [address] [place] [address] Abbey Carney, TOBI Pericardial cyst Social History Tobacco Use Types Packs/Day Years [...] Recorded Patient Health Questionnaire-2 Score 0 10/19/2024 [place] Safety & Environment Answer Date Rec orded [...] Description 11/29/2024 8:30 AM EDT Hospital Encounter [facility] Main Operating Room [address] [place] [address] Seng oRsado MD [address] [place] [address] 11/29/2024 8:30 AM EDT - 11/29/2024 12:00 PM EDT Surgery 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
--- OUTSIDE RECORDS SUMMARY | 2024-11-17 10:04 | XMS_ITS | Clinical Summary ---
Author Organization [facility] Address [address] [place] [address] Care Team Providers Care Orthopedic Nurse Name Role Phone Abhay Moreno MD Primary Care Provider [phone] Linda Pastrana MD Unavailable [phone] Allergies Active Allergy Reactions Criticality Noted Date Comments Adhesive 05/24/2013 Other reaction(s): other Cephalexin Nausea And Vomiting Low 02/26/2023 Other reaction(s): Unknown Desonide High 09/12/1994 Other reaction(s): Other (See Comments) Unknown Ibuprofen High 10/13/2012 Other reaction(s): Other (See Comments) Rectal bleed Latex High 10/13/2012 Other reaction(s): Hives, Other (See Comments) Burning Morphine 02/26/2023 Other reaction(s): Other (See Comments) Labored breathing, chest tightening. Penicillins Anaphylaxis,Rash High 10/13/2012 Other reaction(s): other Prednisone Swelling High 06/05/2016 Medications Medication Sig Dispensed Refills Start Date End Date Status ALPRAZolam (Xanax) 0.5 mg tablet 0.5 mg if needed in the morning and at bedtime. 09/01/2023 Active cholecalciferol, vitamin D3, 50 mcg (2,000 unit) capsule Take 1 capsule by mouth in the morning. 08/10/2023 Active meclizine 25 mg tablet,chewable every 12 (twelve) hours. Active predniSONE (Deltasone) 20 mg tablet 1 (one) time each day at the same time. Active tamsulosin (Flomax) 0.4 mg 24 hr capsule 1 capsule 1 (one) time each day at the same time. Active tiZANidine (Zanaflex) 4 mg tablet 4 mg if needed in the morning, at noon, and at bedtime. 08/06/2023 Active valACYclovir (Valtrex) 1 gram tablet 1 (one) time each day at the same time. Active triamcinolone (Kenalog) 0.1 % cream 1 Application. Active aspirin 81 mg chewable tabletIndication s:Acute systolic congestive heart failure (CMS/HCC) Chew 1 tablet (81 mg) in the morning. 90 tablet 3 09/29/2024 09/29/2025 Active losartan (Cozaar) 50 mg tabletIndication s:Acute systolic congestive heart failure (CMS/HCC) Take 1 tablet (50 mg) by mouth in the morning. 90 tablet 3 09/29/2024 09/29/2025 Active diazePAM (Valium) 5 mg tablet Take 5 mg by mouth 1 (one) time. Active metoprolol succinate XL (Toprol-XL) 50 mg 24 hr tabletIndication s:Chronic systolic congestive heart failure (CMS/HCC) Take 1 tablet (50 mg) by mouth in the morning. Do not crush or chew. 90 tablet 3 10/30/2024 10/30/2025 Active spironolactone (Aldactone) 25 mg tabletIndication s:Chronic systolic congestive heart failure (CMS/HCC) Take 0.5 tablets (12.5 mg) by mouth in the morning. 45 tablet 3 10/30/2024 10/30/2025 Active Additional Information Patient taking differently: 50 mgoral Daily, Reported on 11/16/2024 albuterol 2.5 mg /3 mL (0.083 %) nebulizer solution every 6 (six) hours. 10/20/2024 Discontinue d(Therapy completed) albuterol (Ventolin HFA) 90 mcg/actuation inhaler every 4 (four) hours. 10/20/2024 Discontinue d(Therapy completed) ciprofloxacin (Cipro) 500 mg tablet every 12 (twelve) hours. 10/20/2024 Discontinue d(Therapy completed) diclofenac (Voltaren) 75 mg EC tablet 75 mg if needed in the morning and at bedtime. 08/06/2023 10/20/2024 Discontinue d(Therapy completed) eluxadoline (Viberzi) 100 mg tablet every 12 (twelve) hours. 10/20/2024 Discontinue d(Therapy completed) hyoscyamine (Levsin/SL) 0.125 mg SL tablet every 8 (eight) hours. 10/20/2024 Discontinue d(Therapy completed) indomethacin (Indocin) 50 mg capsule every 12 (twelve) hours. 10/20/2024 Discontinue d(Therapy completed) liothyronine (Cytomel) 5 mcg tablet take 1 tablet by mouth once daily ON AN EMPTY STOMACH 08/10/2023 10/20/2024 Discontinue d(Therapy completed) metroNIDAZOLE (Flagyl) 500 mg tablet every 8 (eight) hours. 10/20/2024 Discontinue d(Therapy completed) metoprolol succinate XL (Toprol-XL) 25 mg 24 hr tabletIndication s:Acute systolic congestive heart failure (CMS/HCC) Take 1 tablet (25 mg) by mouth in the morning. Do not crush or chew. 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 09/30/2023 Inguinal lymphadenopathy 09/30/2023 024 Acute diarrhea 09/30/2023 09/30/2023 Gastritis 09/30/2023 09/30/2023 Degeneration of cervical intervertebral disc 09/30/2023 Fibrocystic breast changes 09/30/202309/29 Peripheral vertigo 09/30/2023 09/30/2023 Palpitations 09/30/2023 09/30/2023 Pain in left hand 09/30/2023 09/30/2023 Pain in right hand 09/30/2023 09/30/2023 Other specified conditions a ssociated with female genital organs and menstrual cycle 09/30/2023 09/30/2023 Left upper quadrant pain 09/30/2023 024 Jaw pain 09/30/2023 09/30/2023 Irregular intermenstrual bleeding 09/30/2023 09/30/2023 Herpetic fallon 09/30/2023 09/30/2023 Encounter for general adult medical examination without abnormal findings 09/30/2023 09/30/2023 Diverticulitis 09/30/2023 09/30/2023 Contusion of wrist 09/30/2023 09/30/2023 Cough 09/30/2023 09/30/2023 Contusion of right knee 09/30/2023 09/30/19 Contact with and (suspected) exposure to other viral communicable diseases 09/30/2023 09/30/2023 Contact dermatitis 09/30/2023 09/30/2023 Acute cystitis with hematuria 09/30/2023 History of gastritis 07/14/2023 07/14/2023 Uterine leiomyoma 04/15/2023 07/14/2023 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 Low back pain 04/15/2023 07/14/2023 Left inguinal hernia 04/15/2023 07/14/2023 Impingement syndrome of shoulder region 04/15/2007/14/2023 History of tobacco use 04/15/2023 Hemorrhagic diarrhea 04/15/2023 07/14/2023 Disorder of intervertebral disc of cervical spin e 04/15/2023 07/14/2023 Body mass index (BMI) of 20 to 24 04/15/2023 07/14/2023 Gonorrhea 03/02/2023 07/14/2023 Nausea with vomiting, unspecified 02/20/2022 07/14/2023 Gastroesophageal reflux disease 02/20/2022 07/14/2023 Change in bowel habit 02/20/2022 07/14/2023 Benign tumor of breast 03/14/2013 Breast lump 02/23/2013 07/14/2023 Encounters Date Type Department Care Team Description 11/17/2024 Telephone [facility] Heart and Vascular Cardiothoracic Surgery [place] [address] [place] [address] Abbey Carney RN Pre-op Instructions 11/16/2024 3:00 PM EDT Consult [facility] Heart [facility] Vascular Cardiothoracic Surgery [place] [address] [place] [address] Alexa Macias, BRAND STRATEGY MANAGER Arrived 11/13/2024 Orders Only [facility] Vascular Cardiothoracic Surgery [place] [address] [place] [address] Abbey Carney RN Pre-op testing; Hypothyroidism, unspecified type; Pericardial cyst; Acute systolic congestive heart failure (CMS/HCC); Abnormal finding of blood chemistry, unspecified 2024 Orders Only [facility] Vascular Cardiothoracic Surgery [address] [address] Abbey Carney RN Pericardial cyst 11/09/[address] [address] Yaa Mac MA 11/08/2024 8:41 AM EDT - 11/08/2024 11:59 PM EDT Hospital Encounter [facility] Pulmonary Function Testing [address] [facility] 3rd [place] [address] Pre-op testing Discharge Disposition: Home or Self Care (01) 11/03/2024 Orders Only [facility] Vascular Cardiothoracic Surgery [address] [address] Abbey Carney RN Pre-op testing 10/30/2024 2:30 PM EDT Follow-Up [facility] [address] [place] [address] Chintan Ragland MD Chronic systolic congestive heart failure (CMS/HCC) (Primary Dx); Pericardial cyst; Noncompaction cardiomyopathy (CMS/HCC) 10/26/2024 Telephone [facility] [address] [place] [address] Yaa Mac MA 10/20/2024 10:00 AM EDT - 10/20/2024 11:00 AM EDT Surgery [facility] Heart and Vascular [place] [facility] [address] [place] [address] Chintan Ragland MD Coronary angiography [36779 (CPT )] 10/20/2024 8:42 AM EDT - 10/20/2024 2:33 PM EDT Hospital Encounter [facility] Heart [facility] Vascular [place] [facility] [address] [place] [address] Chintan Ragland MD Acute systolic congestive heart failure (CMS/HCC); Shortness of breath; Abnormal findings on diagnostic imaging of heart and coronary circulation Discharge Disposition: Home or Self Care () 10/20/2024 Travel 10/19/2024 3:00 PM EDT Consult [facility] Heart [facility] Vascular Cardiothoracic Surgery [place] [address] [place] [address] Seng Rosado MD Pericardial cyst (Primary Dx); Acute systolic congestive heart failure (CMS/HCC) 10/18/2024 Travel 10/10/2024 12:05 AM EDT - 10/10/2024 11:59 PM EDT Hospital Encounter [facility] Radiology [place] [address] Discharge Disposition: Home or Self Care () 10/10/2024 - 10/10/2024 12:04 AM EDT Hospital Encounter [facility] Radiology External Films [address] [place] [address] Discharge Disposition: Home or Self Care () 10/03/2024 - 10/03/2024 11:59 PM EDT Hospital Encounter [facility] Radiology [place] [address] Discharge Disposition: Home or Self Care () 10/03/2024 Telephone [facility] Heart [facility] Vascular Cardiothoracic Surgery [place] [address] [place] [address] JlLashay LEILANI Other 09/29/2024 1:45 PM EDT Office Visit [facility] Heart at [facility] [address] [place] [address] Chintan Ragland MD Abnormal echocardiogram (Primary Dx); Acute systolic congestive heart failure (CMS/HCC); Pericardial cyst; Shortness of breath; Abnormal findings on diagnostic imaging of heart and coronary circulation from Last 3 Months Immunizations Name Administration Dates Next Due DTaP, Unspecified 01/10/1979 MMR 06/08/1981 Polio, Unspecified 01/10/1979 Family History Medical History Relation Name Comments Brain Aneurysm Maternal Grandfather Colon cancer Maternal Grandfather Heart attack Maternal Grandfather Diabetes Mother Hypertension Mother Mitral valve prolapse Mother ckd Mother Relation Name Status Comments Maternal Grandfather Mother Paternal Grandfather Social History Tobacco Use Types Packs/Day Years [...] Recorded Patient Health Questionnaire-2 Score 0 10/19/2024 [place] Safety & Environment Answer Date Rec orded [...] Heterosexual or Straight 06/16 2:59 PM EST Last Filed Vital Signs Vital Sign Reading Time Taken Comments Blood Pressure 144/73 11/16/2024 2:53 PM EDT Pulse 70 11/16/2024 2:53 PM EDT Temperature 36.1 C (96.9 F) 07/14/2023 3:08 PM EST Respiratory Rate 18 10/20/2024 2:15 PM EDT Oxygen Saturation 100% 11/16/2024 2:53 PM EDT Inhaled Oxygen Concentration - - Weight 58.5 kg (129 lb) 11/16/2024 2:53 PM EDT Height 167.6 cm (5' 6 ) 11/16/2024 2:53 PM EDT Body Mass Index 20.82 11/16/2024 2:53 PM EDT Plan of Treatment Upcoming Encounters Date Type Department Care Team (Late st Contact Info) Description 11/29/2024 8:30 AM EDT Hospital Encounter [facility] Main Operating Room [address] [place] [phone] Seng Rosado MD [address] [facility] [place] [address] 11/29/2024 8:30 AM EDT - 11/29/2024 12:00 PM EDT Surgery [facility] Main Operating Room [address] [place] [address] Seng Rosado MD [address] [facility] [place] [address] THORACOSCOPY, REMOVAL OF PERCARDIAL CYST [15443 (CPT )] Scheduled Procedures Name Priority Associated Diagnoses Date/Ti me THORACOSCOPY Pericardial cyst 11/29/2024 8:30 AM EDT Health Maintenance Due Date Last Done Comments CT Colonography 1978 FIT-DNA 1978 FIT 1978 FOBT 1978 Sigmoidoscopy 1978 IPV Vaccines (2 of 3 - 4-dose series) 03/13/1979 01/10/1979 Pneumococcal Vaccine: Pediatrics (0 to 5 Years) and At-Risk Patients (6 to 64 Years) (1 of 2 - PCV) 1984 Hepatitis B Vaccines (1 of 3 - 19+ 3-dose series) 1997 Adult Tetanus 2000 HPV/Cotest 2008 Colonoscopy 05/20/2021 05/20/2011 Colorectal Cancer Screening 05/20/2021 COVID-19 Vaccine ( season) 2024 Influenza Vaccine (Season Ended) 2025 Mammogram 05/04/2025 05/04/2023, 04/14, 03/26/2023, Additional history exists Depression Screening 10/19/2025 10/19/2024 Cervical Cancer Screening 02/26/2026 Pap Smear 02/26/2026 02/26/2023 Zoster Vaccines (1 of 2) 2028 HIB Vaccines Aged Out No longer eligi ble based on patient's age to complete this topic HPV Vaccines Aged Out No longer eligi ble based on patient's age to complete this topic Meningococcal B Vaccine Aged Out No l onger eligible based on patient's age to complete this topic Meningococcal Vaccine Aged Out No cristina caity eligible based on patient's age to complete this topic Rotavirus Vaccines Aged Out No longer eligible based on patient's age to complete this topic Procedures Procedure Name Priority Date/Time Associated Diagnosis Comments HC DIFFUSING CAPACITY - CARBON MONOXIDE DIFFUSING CAPACITY Routine 11/08/2024 3:31 PM EDT Pre-op testing RIGHT HEART CATH Routine 10/20/2024 12:1 3 PM EDT Acute systolic congestive heart failure (CMS/HCC) Shortness of breath Abnormal findings on diagnostic imaging of heart and coronary circulation CORONARY ANGIOGRAPHY Routine 10/20/2024 12:13 PM EDT Acute systolic congestive heart failure (CMS/HCC) Shortness of breath Abnormal findings on diagnostic imaging of heart and coronary circulation POCT HBO2% Routine 10/20/2024 12:00 PM EDT ECG 12-LEAD Routine 10/20/2024 9:25 AM EDT POCT , URINE Routine 10/20/2024 9:[address] TRANSFER OF OUTSIDE FILMS Routine 10/10/2024 12:05 AM EDT XR TRANSFER OF OUTSIDE FILMS Routine 10/10/2024 12:00 AM EDT US TRANSFER OF OUTSIDE FILMS Routine 10/03/2024 12:00 AM EDT ECG 12 LEAD UNIT PERFORMED Routine 09/29/2024 1:55 PM EDT Abnormal echocardiogram BI MAMMOGRAM SCREENING TOMOSYNTHESIS BILATERAL Routine 01/04/2015 from Last 3 Months or Most Recently Relevant to Health Maintenance Results * Pulmonary function testing (11/08/2024 3:31 [...] PM 11/08/24 Seng Rosado MD PFT ORDERABLES * CORONARY ANGIOGRAPHY, RIGHT HEART CATH (10/20/2024 12:13 PM EDT) Anatomical Region Laterality Modality Other Narrative 10/20/2024 12:23 PM EDT PROCEDURE PHYSICIAN: Chintan Ragland MD . Indications: Tammy Roberts is a 43 y.o. female who was evaluated in cardiology clinic because of acute systolic heart failure with reduced ejection fraction. She also has a pericardial cyst and was being evaluated by cardiothoracic surgery. She was referred for cardiac catheterization. Assistants: None. Procedure Performed: Bilateral selective coronary angiogram. Right heart catheterization. Access into the right internal jugular vein under ultrasound guidance. Access into the right radial artery under ultrasound guidance. Methods: Procedure was explained to the patient with risks and benefits; she signed informed consent. she was brought to the veterinarian laboratory animal care in a fasting state. The right neck area was prepped and draped in usual fashion. Micropuncture technique was used for access under ultrasound guidance into the right internal jugular vein. A 6-English x 11 cm sheath was placed. The right wrist area was prepped and draped in usual fashion. Micropuncture technique was used for access in the right radial artery. A 5-English x 11 cm sheath was placed. Verapamil was given through the sheath, and heparin was administered intravenously. A 6-English Ayala catheter was used for right heart catheterization and measurement of pressures and calculation of cardiac output using the estimated Lukas method. Ayala catheter was removed. Bilateral selective coronary angiography was then performed using 5-English JL3.5 and JR5 diagnostic catheters. Catheters were removed. Hemostasis was achieved by TR band in the radial artery manual compression in the internal jugular vein. she tolerated the procedure well and was transferred back to the cardiovascular recovery area. Hemodynamic Data: RA: 1 RV: 20/0, 3 PA: 17/4 (10) PCWP: 1 CO: 4.44 CI: 2.68 O2 Sat: PA sat: 72%, AO sat: 97% AO: 127/72 (94) Coronary angiography: This is a right-dominant circulation. Left Main: This arises from the left coronary cusp. It bifurcates into left anterior descending and circumflex vessels. This is angiographically normal. Left anterior descending: This is angiographically normal. Circumflex: This is a non-dominant vessel. This is angiographically normal. Right coronary artery: This arises from the right coronary cusp. It is a dominant vessel. This is angiographically normal. Impression/Findings: Normal coronary angiogram. Low filling and pulmonary pressures. Low normal cardiac output. Findings are consistent with non-ischemic cardiomyopathy. Plan: Guideline directed medical therapy for heart failure. Risk factor control. Follow up in Cardiology Clinic. Chintan Ragland MD Study Details Acute systolic congestive heart failure (CMS/HCC) [I50.21]Shortness of breath [R06.02]Abnormal findings on diagnostic imaging of heart and coronary circulation [R93.1] Chintan Ragland MD CV CARDIAC CATH PROC EDURES * (ABNORMAL) POC Hb02% (10/20/2024 12:00 PM EDT) [facility] [id number]% 71.4(A) 90 - 95 % QC Pass/Fail Passed QC LOT # [id number] QC Expiration Date 73,126 SAMPLESITE nl Blood Venous blood specimen / Unknown 10/20/2024 12:00 PM EDT Narrative Hal Polanco MT - 10/23/2024 5:49 AM EDT Solar Technician [id number] Chintan Ragland MD POINT OF CARE TEST E NTER/EDIT ORDERABLES * ECG 12 lead (10/20/2024 9:25 AM EDT) Pathologist [facility] Ventricular Rate 90 BPM GE MUSE Atrial Rate 90 BPM GE MUSE NC Interval 128 ms GE MUSE QRS DURATION 76 ms GE MUSE QT Interval 364 ms GE MUSE QTC CALCULATION(BAZE TT) 445 ms GE MUSE P [place] 76 degrees GE MUSE R-[place]ill[place] 40 degrees GE MUSE T Wave [place] 44 degrees GE MUSE 10/20/2024 9:18 AM EDT 10/20/2024 9:37 AM EDT Impressions GE MUSE - 10/20/2024 9:38 AM EDT Normal sinus rhythm Normal ECG No previous ECGs available Confirmed by Vance WEISS, KIMMIE Rodriguez ([id number]) on 10/20/2024 9:37:59 AM Narrative Procedure Note Kimmie Weiss MD - 10/20/2024 IMPRESSION: Normal sinus rhythm Normal ECG No previous ECGs available Confirmed by Vance WEISS, KIMMIE Rodriguez ([id number]) on 10/20/2024 9:37:59 AM Chintan Ragland MD ECG ORDERABLES Performing Organization Address [facility] de Phone Number GE MUSE * POCT , urine manually resulted (10/20/2024 9:05 AM EDT) Preg Test, Ur Negative QC Pass/Fail Passed QC LOT # [id number] QC Expiration Date 07/30/2025 Urine 10/20/2024 9:05 AM EDT Chintan Ragland MD POINT OF CARE TEST E NTER/EDIT ORDERABLES * CT transfer of outside films (10/10/2024 12:05 AM EDT) Narrative IMAGING - 10/10/2024 12:25 PM EDT This order has been auto-finalized and does not contain a result. Seng Rosado MD IMG CT PROCEDURES Performing Organization Address [facility] de Phone Number IMAGING * XR transfer of outside films (10/10/2024 12:00 AM EDT) Narrative IMAGING - 10/10/2024 12:25 PM EDT This order has been auto-finalized and does not contain a result. Seng Rosado MD IMG XR PROCEDURES Performing Organization Address [facility] de Phone Number IMAGING * US transfer of outside films (10/03/2024 12:00 AM EDT) Narrative IMAGING - 10/03/2024 12:51 PM EDT This order has been auto-finalized and does not contain a result. Seng Rosado MD IMG US PROCEDURES IMAGING * ECG 12 lead unit performed (09/29/2024 1:55 PM EDT) Chintan Ragland MD ECG ORDERABLES * Bilateral screening mammogram with tomosynthesis (01/04/2015) Anatomical Region Laterality Modality Breast Bilateral Mammography Historical Provider IMG BI PROCEDURES from Last 3 Months or Most Recently Relevant to Health Maintenance Care Teams Orthopedic Nurse Relationship Specialty Start Date End Date Abhay Moreno MD [address] [facility] [address] [address] PCP - General 07/14/23 Linda Pastrana MD [address] [facility] [place] [phone] Consulting Physician Hematology and Oncology 07/14/23
--- OUTSIDE RECORDS SUMMARY | 2024-11-17 10:04 | XMS_ITS | Clinical Summary ---
Author Organization [facility] Address [address] [place] [address] Care Team Providers Care Entry Operator Name Role Phone Abhay Moreno MD Primary Care Provider [phone] Quynh Bishop CNM Unavailable [phone] Social History Tobacco Use Types Packs/Day Years Used Date Smoking Tobacco: Never Assessed Comments Unknown Sex and Gender Information Value Date Recorded Sex Assigned at Not on file Legal Sex Female 9:05 AM EST Gender Identity Not on file Sexual Orientation Not on file Plan of Treatment Health Maintenance Due Date Last Done Comments HEPATITIS C VIRUS SCREENING 1978 TETANUS 1978 HIV SCREENING DISCUSSION 1993 HEP B VACCINE (1 of 3 - 19+ 3-dose series) 1997 TDAP (ADULT) 1997 CERVICAL CANCER SCREENING DISCUSSION 11/11/1999 LIPID SCREENING 2018 COLORECTAL CANCER SCREENING DISCUSSION 11/11/2023 COVID-19 VACCINE (2023-2 5 season) 2024 MAMMOGRAM SCREENING DISCUSSION 03/26/2024 03/26/2023, 03/26/2023, 02/10/2013 INFLUENZA VACCINE (Season Ended) 2025 HPV VACCINE Aged Out No longer eligi ble based on patient's age to complete this topic PNEUMOCOCCAL VACCINE SERIES Aged Out No longer eligible based on patient's age to complete this topic Procedures Procedure Name Priority Date/Time Associated Diagnosis Comments MAMMO SCREENING BILATERAL (OUTSIDE IMAGE) Routine 03/26/2023 from Last 3 Months or Most Recently Relevant to Health Maintenance Results * MAMMO SCREENING BILATERAL (OUTSIDE IMAGE) (03/26/2023) 03/26/2023 Narrative RADIOLOGY - 05/03/2023 1:43 PM EST Outside Imaging Study for Support of Clinical Care. This study was sent from an outside facility to [facility] for support of clinical care of the patient within the [facility] system. Procedure Note [facility] Outside Orders, External Images - 05/03/2023 Outside Imaging Study for Support of Clinical Care. This study was sentfrom an outside facility to [facility] for support of clinical care of thepatient within the [facility] system. us Jeanette Shakir Lynch MOLDER FOAM RUBBER-FOLDED TOWEL MACHINE OPERATOR BREAST IMAGING Final Re sult RADIOLOGY from Last 3 Months or Most Recently Relevant to Health Maintenance Insurance [employer] P[employer] POS Care Teams Entry Operator Relationship Specialty Start Date End Date Abhay Moreno MD PCP - General Family Medicine 04/30/[address] [facility] [address] [place] [address] Certified Nurse Curing Room Worker 04/30/23
--- OUTSIDE RECORDS SUMMARY | 2024-11-17 10:04 | XMS_ITS | Encounter Summary ---
Author Organization Justin Wheeler [facility] Address [address] [place] [address] Care Team Providers Care [employer] Specialist Name Role Phone Abhay Moreno MD Primary Care Provider [phone] Encounter Details Date Type Department Care Team (Late st Contact Info) Description 03/11/2023 Orders Only [facility] Part of [address] [place], [place] [id number] Provider, MD Vinay Social History Tobacco Use Types Packs/Day Years [...] on file documented as of this encounter Procedures Procedure Name Priority Date/Time Associated Diagnosis Comments CT ABDOMEN PELVIS W CONTRAST Routine 02/18/2023 CTA CHEST W WO CONTRAST Routine 09/04/2022 US RENAL LIMITED Routine 09/01/2022 XR ABDOMEN KUB 1 VW Routine 08/26/2022 XR CHEST 1 VIEW Routine 09/04/2021 XR SHOULDER LEFT 2 VW Routine 12/10/2020 CHG RADEX SPINE CERVICAL 4 O R 5 VIEWS Routine 12/10/2020 XR KNEE RIGHT (MIN 4 VIEWS) Routine 01/09/2019 US PELVIS NON OB LIMITED FOLLOW UP Routine 02/16/2018 XR SACRUM COCCYX 2 VW Routine 09/29/2017 [facility] X-RAY LUMBAR SPINE 4 VW Routine 09/29/2017 CT ABDOMEN PELVIS W CONTRAST Routine 06/03/2016 JODEE DIAGNOSTIC BILATERAL Routine 02/10/2013 JODEE DIAGNOSTIC BILATERAL Routine 01/27/2011 documented in this encounter Results * CT Abdomen Pelvis W Contrast (02/18/2023) Anatomical Region Laterality Modality Computed Tomogra phy [facility] Provider MD CRONIN CT ORDERABLES Final R esult * CTA CHEST W WO CONTRAST (09/04/2022) Anatomical Region Laterality Modality Chest, Vascular Computed Tomogra phy [facility] Provider MD CRONIN CT ORDERABLES Final R esult * US Renal Limited (09/01/2022) Anatomical Region Laterality Modality Abdomen Other [facility] Provider MD CRONIN US ORDERABLES Final R esult * XR Abdomen Kub 1 VW (08/26/2022) Anatomical Region Laterality Modality Radiographic Izabel ging Result [facility] Provider MD REMYG DIAGNOSTIC IMAGING OR DERABLES Final Result * XR CHEST 1 VIEW (09/04/2021) Anatomical Region Laterality Modality Chest Radiographic Izabel ging Result [facility] Provider MD CRONIN DIAGNOSTIC IMAGING OR DERABLES Final Result * CHG RADEX SPINE CERVICAL 4 OR 5 VIEWS (12/10/2020) [facility] Provider NV IMAGING Final Res ult * XR Shoulder Left 2 VW (12/10/2020) Anatomical Region Laterality Modality Radiographic Izabel ging Result [facility] Provider MD CRONIN DIAGNOSTIC IMAGING OR DERABLES Final Result * XR KNEE RIGHT (MIN 4 VIEWS) (01/09/2019) Anatomical Region Laterality Modality Thigh, Knee, Leg Radiographic Im aging [facility] Provider MD CRONIN DIAGNOSTIC IMAGING OR DERABLES Final Result * US Pelvis Non OB Limited Follow Up (02/16/2018) Anatomical Region Laterality Modality Other Historical Provider MD CRONIN US ORDERABLES Final R esult * [facility] X-RAY LUMBAR SPINE 4 VW (09/29/2017) Result [facility] Provider MD BRITO IMAGING Final Res ult * XR SACRUM COCCYX 2 VW (09/29/2017) Anatomical Region Laterality Modality Radiographic Izabel ging Result [facility] Provider MD CRONIN DIAGNOSTIC IMAGING OR DERABLES Final Result * CT Abdomen Pelvis W Contrast (06/03/2016) Anatomical Region Laterality Modality Computed Tomogra phy Result [facility] Provider MD CRONIN CT ORDERABLES Final R esult * JODEE DIAGNOSTIC W CAD BILATERAL (02/10/2013) Anatomical Region Laterality Modality Breast Bilateral Mammography Result [facility] Provider MD CRONIN MAMMOGRAPHY ORDERABLE S Final Result * JODEE DIAGNOSTIC W CAD BILATERAL (01/27/2011) Anatomical Region Laterality Modality Breast Bilateral Mammography Result [facility] Provider MD CRONIN MAMMOGRAPHY ORDERABLE S Final Result documented in this encounter Visit Diagnoses Not on filedocumented in this encounter Care Teams [employer] Specialist Relationship Specialty Start Date End Date Abhay Moreno MD [address] [place] [address] PCP - General 10/13/12 documented as of this encounter
--- OUTSIDE RECORDS SUMMARY | 2024-11-17 10:04 | XMS_ITS | Clinical Summary ---
[facility] Address [address] [place] [address] Care Team Providers Care Credit Checker Name Role Phone Abhay Moreno MD Primary Care Provider [phone] Allergies Active Allergy Reactions Criticality Noted Date Comments Bacitracin Rash Low 10/29/2024 Cephalexin Nausea And Vomiting Low 02/26/2023 Desonide Other (See Comments) High 09/12/1994 Unknown Fentanyl Anaphylaxis High 08/29/2024 Ibuprofen Other (See Comments) High 10/13/2012 Rectal bleed Latex Other (See Comments) High 10/13/2012 Burning Morphine Other (See Comments) 02/26/2023 Labored breathing, chest tightening. Penicillins Rash High 10/13/2012 Prednisone Swelling High 06/05/2016 Adhesive Tape 05/24/2013 Medications aspirin 81 MG chewable tablet Take 1 tablet by mouth daily 5 09/30/19 26 Active losartan (COZAAR) 50 MG tablet Take 1 tablet by mouth daily 5 09/30/19 26 Active metoprolol succinate (TOPROL XL) 25 MG extended release tablet Take 1 tablet by mouth daily 5 09/30/19 26 Active ALPRAZolam (XANAX) 0.25 MG tablet 1 tablet Orally Twice a day for 14 days F41.9 5 Active spironolactone (ALDACTONE) 25 MG tablet Take 0.5 tablets by mouth daily 5 10/31/19 26 Active naproxen sodium (ANAPROX) 275 MG tabletIndicatio ns:Acute pelvic pain, female Take 1 tablet by mouth 3 times daily (with meals) As needed for pelvic pain 60 tablet 3 3 10/30/19 25 Discontinu ed(LIST CLEANUP) Active Problems Problem Noted Date Diagnosed Date History of tobacco use 04/15/2023 Body mass index (BMI) of 20 to 24 04/15/2023 04/15/2023 Disorder of intervertebral disc of cervical spin e 04/15/2023 04/15/2023 Fibrocystic breast changes 04/15/202304/15 Hemorrhagic diarrhea 04/15/2023 04/15/2023 Impingement syndrome of shoulder region 04/15/20 23 04/15/2023 Left inguinal hernia 04/15/2023 04/15/2023 Low back pain 04/15/2023 04/15/2023 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07/2022 Uterine leiomyoma 04/15/2023 04/15/2023 Gonorrhea 03/02/2023 Change in bowel habit 02/20/2022 04/15/2023 Gastritis, unspecified, without bleeding 022 04/15/2023 Nausea with vomiting, unspecified 02/20/2022 04/15/2023 Encounters Date Type Department Care Team Description 11/15/2024 12:45 PM EDT Hospital Encounter [facility] Non-Invasive Cardiology [address] [place] [address] Syncope and collapse 11/15/2024 8:52 AM EDT - 11/15/2024 12:32 PM EDT Emergency [facility] Emergency Department [address] [place] [address] Bereket Pacheco MD TIA (transient ischemic attack) (Primary Dx); Syncope and collapse; Symptoms of dehydration; Radicular pain in left arm Discharge Disposition: Home or Self Care 11/15/2024 Travel 10/29/2024 1:15 PM EDT - 10/29/2024 3:44 PM EDT Emergency [facility] Emergency Department [address] [place] [address] Bola Miller MD Chest pain, unspecified type (Primary Dx) Discharge Disposition: Home or Self Care 10/29/2024 Travel from Last 3 Months Social History Tobacco Use Types Packs/Day Years Used Date Smoking Tobacco: Every Day Cigarettes Smokeless Tobacco: Never Tobacco Cessation:Ready to Q uit: Not Asked; Counseling Given: Not Answered Alcohol Use Standard Drinks/Week Comments No 0 [...] on file Sexual Orientation Not on file Last Filed Vital Signs Vital Sign Reading [...] Mass Index 20.36 11/15/2024 8:59 AM EDT Plan of Treatment Health Maintenance Due Date Last Done Comments Polio vaccine (2 of 3 - 4-dose series) 03/13/1979 01/10/1979 HIV screen 1993 Hepatitis C screen 1996 DTaP/Tdap/Td vaccine (2 - Tdap) 1997 01/10/1979 Hepatitis B vaccine (1 of 3 - 19+ 3-dose series) 1997 Pneumococcal 0-49 years Vaccine (1 of 2 - PCV) 1997 HPV (without or with Pap) 2008 Lipids 2018 Colonoscopy 11/11/2023 Colorectal Cancer Screen 11/11/2023 FIT/FOBT: Average risk 11/11/2023 Fecal-DNA (Cologuard): Average risk 11/11/2023 Sigmoidoscopy/CT colonography 11/11/2023 COVID-19 Vaccine ( season) 2024 Depression Screen 04/15/2024 04/15/2023 Flu vaccine (Season Ended) 2025 Breast cancer screen 04/27/2025 04/27/2023, 03/26/2023, 02/10/2013, Additional history exists Cervical cancer screen 02/26/2026 Pap smear 02/26/2026 02/26/2023 HPV vaccine Aged Out No longer eligi ble based on patient's age to complete this topic Hepatitis A vaccine Aged Out No longe r eligible based on patient's age to complete this topic Hib vaccine Aged Out No longer eligi ble based on patient's age to complete this topic Meningococcal (ACWY) vaccine Aged Out No longer eligible based on patient's age to complete this topic Meningococcal B vaccine Aged Out No l onger eligible based on patient's age to complete this topic Procedures Procedure Name Priority Date/Time Associated Diagnosis Comments CTA HEAD NECK W CONTRAST CODE STROKE 11/15/2024 11:[address] HEAD WO CONTRAST CODE STROKE 11/15/2024 1 1:03 AM EDT TROPONIN Timed 11/15/2024 9:59 AM EDT BRAIN NATRIURETIC PEPTIDE STAT 11/15/2024 9:34 AM EDT D-DIMER, QUANTITATIVE STAT 11/15/2024 9:00 AM EDT TROPONIN STAT 11/15/2024 9:00 AM EDT HCG, SERUM, QUALITATIVE STAT 11/15/2024 9:00 AM EDT CBC WITH AUTO DIFFERENTIAL STAT 11/15/2024 9:00 AM EDT BASIC METABOLIC PANEL STAT 11/15/2024 9:00 AM EDT EKG 12-LEAD STAT 11/15/2024 8:57 AM EDT TROPONIN STAT 10/29/2024 3:11 PM EDT XR CHEST PORTABLE STAT 10/29/2024 1:5 1 PM EDT HCG, QUANTITATIVE, STAT 10/29/2024 1:27 PM EDT PROTIME-INR STAT 10/29/2024 1:27 PM EDT BRAIN NATRIURETIC PEPTIDE STAT 10/29/2024 1:27 PM EDT D-DIMER, QUANTITATIVE STAT 10/29/2024 1:27 PM EDT TROPONIN STAT 10/29/2024 1:27 PM EDT CBC WITH AUTO DIFFERENTIAL STAT 10/29/2024 1:27 PM EDT BASIC METABOLIC PANEL STAT 10/29/2024 1:27 PM EDT EKG 12-LEAD STAT 10/29/2024 1:23 PM EDT JODEE ZORAIDA DIGITAL DIAGNOSTIC UNILATERAL RIGHT Routine 04/27/2023 1:25 PM EST Abnormal screening mammogram [facility] [facility] CYTOLOGY Routine 02/26/2023 12:00 AM EDT from Last 3 Months or Most Recently Relevant to Health Maintenance Results * CTA HEAD NECK W CONTRAST [...] the lungs are clear. Procedure Note Patrizia Ramos, DO - 11/15/2024 EXAM: CTA HEAD NECK [...] esult * Troponin (11/15/2024 9:59 AM EDT) Only the most recent of4 resultswithin the time period is included. Pathologist [facility] Troponin, High Sensitivity <6 0 - 14 ng/L 11/15/2024 9:59 AM EDT [facility] Comment:High Sensitivity Tro ponin values cannot be compared with other Troponin methodologies. Blood BLOOD SPECIMEN / Unknown 11/15/2024 9:59 AM EDT 11/15/2024 10:00 AM EDT Bereket Pacheco MD CHEMISTRY ORDERABLES Chacha l Result Performing Organization Address [facility] Co de Phone Number [facility] [address] [phone] * Brain Natriuretic Peptide (11/15/2024 9:34 AM EDT) Only the most recent of2 resultswithin the time period is included. [facility] NT Pro-BNP <36 <300 pg/mL 11/15/2024 9:34 AM EDT [facility] Comment: An age-independent cutoff point of 300 pg/ml has a 98% negative predictive value excluding acute heart failure. 11/15/2024 9:34 AM EDT 11/15/2024 9:35 AM EDT Bereket Pacheco MD CHEMISTRY ORDERABLES Chacha l Result Performing Organization Address [facility] Co de Phone Number [facility] [address] [phone] * (ABNORMAL) CBC with Auto Differential (11/15/2024 9:00 AM EDT) Only the most recent of2 resultswithin the time period is included. [facility] WBC 7.0 3.5 - 11.0 k/uL 11/15/2024 9:00 AM [facility] RBC 4.49 4.00 - 5.20 m/uL 11/15/2024 9:00 AM [facility] Hemoglobin 14.1 12.0 - 16.0 g/dL 11/15/2024 9:00 AM [facility] Hematocrit 41.0 36.0 - 46.0 % 11/15/2024 9:00 AM [facility] MCV 91.3 80.0 - 100.0 fL 11/15/2024 9:00 AM [facility] MCH 31.4 26.0 - 34.0 pg 11/15/2024 9:00 AM [facility] MCHC 34.4 31.0 - 37.0 g/dL 11/15/2024 9:00 AM [facility] RDW 12.3 12.1 - 15.2 % 11/15/2024 9:00 AM [facility] Platelets 235 140 - 450 k/uL 11/15/2024 9:00 AM [facility] MPV 9.0 6.0 - 12.0 fL 11/15/2024 9:00 AM [facility] Neutrophils % 44(L) 47 - 75 % 11/15/2024 9:00 AM [facility] Lymphocytes % 44(H) 15 - 40 % 11/15/2024 9:00 AM [facility] Monocytes % 10(H) 4 - 8 % 11/15/2024 9:00 AM [facility] Eosinophils % 2 0 - 5 % 11/15/2024 9:00 AM [facility] Basophils % 0 0 - 2 % 11/15/2024 9:00 AM [facility] Immature Granulocytes % 0 0 - 5 % 11/15/2024 9:00 AM [facility] Neutrophils Absolute 3.05 2.5 - 7.0 k/uL 11/15/2024 9:00 AM [facility] Lymphocytes Absolute 3.04 1.00 - 4.80 k/uL 11/15/2024 9:00 AM EDT [facility] Monocytes Absolute 0.72 0.00 - 1.00 k/uL 11/15/2024 9:00 AM EDT [facility] Eosinophils Absolute 0.12 0.00 - 0.40 k/uL 11/15/2024 9:00 AM EDT [facility] Basophils Absolute 0.02 0.00 - 0.20 k/uL 11/15/2024 9:00 AM EDT [facility] Immature Granulocytes Absolute 0.00 0.00 - 0.30 k/uL 11/15/2024 9:00 AM EDT [facility] Blood BLOOD SPECIMEN / Unknown 11/15/2024 9:00 AM EDT 11/15/2024 9:01 AM EDT us Bereket Pacheco MD HEMATOLOGY ORDERABLES Fin al Result [facility] [address] [place] [id number], [facility] [phone] * D-Dimer, Quantitative (11/15/2024 9:00 AM EDT) Only the most recent of2 resultswithin the time period is included. D-Dimer, Quant 0.32 0.00 - 0.59 ug/mL FEU 11/15/2024 9:00 AM EDT [facility] Comment: When combined with a low [...] 9:00 AM EDT 11/15/2024 9:08 AM EDT Bereket Pacheco MD HEMATOLOGY ORDERABLES Fin al Result Performing Organization Address [facility] Co de Phone Number [facility] [address] [place] [address], [facility] [phone] * HCG Qualitative, Serum (11/15/2024 9:00 AM EDT) [facility] Preg, Serum NEGATIVE NEGATIVE 11/15/2024 9:00 AM EDT [facility] Comment: Specimens with hCG levels near the threshold of the test (25 mIU/mL) may give a negative or indeterminate result. In such cases, another test should be performed with a new specimen in 48-72 hours. If early is suspected clinically in this setting, correlation with quantitative serum b-hCG level is suggested. [employer] has confirmed the use of plasma for this test. This has not been cleared or approved by the U.S. Food and Drug Administration. The FDA has determined that such clearance is not necessary. Blood BLOOD SPECIMEN / Unknown 11/15/2024 9:00 AM EDT 11/15/2024 9:01 AM EDT Bereket Pacheco MD CHEMISTRY ORDERABLES Chacha l Result Performing Organization Address [facility] Co de Phone Number [facility] [address] [place] [address], [facility] [phone] * (ABNORMAL) BMP (11/15/2024 9:00 AM EDT) Only the most recent of2 resultswithin the time period is included. Sodium 138 135 - 144 mmol/L 11/15/2024 9:00 AM EDT [facility] Potassium 4.4 3.7 - 5.3 mmol/L 11/15/2024 9:00 AM T [facility] Chloride 106 98 - 107 mmol/L 11/15/2024 9:00 AM EDT [facility] CO2 22 20 - 31 mmol/L 11/15/2024 9:00 AM EDT [facility] Anion Gap 10 9 - 17 mmol/L 11/15/2024 9:00 AM T [facility] Glucose 104(H) 70 - 99 mg/dL 11/15/2024 9:00 AM EDT [facility] BUN 11 6 - 20 mg/dL 11/15/2024 9:00 AM T [facility] Creatinine 0.7 0.5 - 0.9 mg/dL 11/15/2024 9:00 AM T [facility] Est, Glom Filt Rate >90 >60 mL/min/1.7 3m2 11/15/2024 9:00 AM T [facility] Comment: These results are not [...] 8.6 - 10.4 mg/dL 11/15/2024 9:00 AM T [facility] Blood BLOOD SPECIMEN / Unknown 11/15/2024 9:00 AM EDT 11/15/2024 9:01 AM EDT us Bereket Pacheco MD CHEMISTRY ORDERABLES Chacha tovar Result [facility] [address] [place], [place] [address] [phone] * EKG 12 Lead (11/15/2024 8:57 AM EDT) Only the most recent of2 resultswithin the time period is included. Ventricular Rate 66 BPM [facility] Atrial Rate 66 BPM [facility] P-R Interval 126 ms [facility] QRS Duration 78 ms [facility] Q-T Interval 416 ms [facility] QTc Calculation (Bazett) 436 ms [facility] P [place] 88 degrees [facility] R [place] 27 degrees [facility] T [place] 46 degrees [facility] 11/15/2024 8:57 AM EDT Narrative [facility] - 11/15/2024 9:34 AM EDT Normal sinus rhythm Normal ECG Procedure Note Garcia Burgos MD - 11/15/2024 Normal sinus rhythm Normal ECG us Bereket Pacheco MD ECG ORDERABLES Final Res ult [facility] * XR CHEST PORTABLE (10/29/2024 1:51 PM EDT) Anatomical Region Laterality Modality Chest Computed Radiogr aphy 10/29/2024 1:51 PM EDT Impressions 10/29/2024 3:01 PM EDT 1. No acute cardiopulmonary disease. 2. Right pericardial cyst. Narrative 10/29/2024 3:01 PM EDT EXAM: XR CHEST PORTABLE HISTORY: chest pain COMPARISON: 12/16/2023. Prior chest CT 09/04/2021. TECHNIQUE: AP portable. FINDINGS: Right pericardial cyst, unchanged. Pulmonary vascularity is within normal limits. The lungs and costophrenic angles are clear. Procedure Note Mikhail Juárez MD - 10/29/2024 EXAM: XR CHEST PORTABLE HISTORY: chest pain COMPARISON: 12/16/2023. Prior chest CT 09/04/2021. TECHNIQUE: AP portable. FINDINGS: Right pericardial cyst, unchanged. Pulmonary vascularity iswithin normal limits. The lungs and costophrenic angles are clear. IMPRESSION: 1. No acute cardiopulmonary disease. 2. Right pericardial cyst. Result Freddy Miller MD IMG DIAGNOSTIC IMAGING ORDERABL ES Final Result * Protime-INR (10/29/2024 1:27 PM EDT) Protime 12.5 11.5 - 14.2 sec 10/29/2024 1:27 PM EDT [facility] INR 0.9 10/29/2024 1:27 PM EDT [facility] Comment: Therapeutic Range: Moderate Anticoagulant Intensity: INR = 2.0-3.0 High Anticoagulant Intensity: INR = 2.5-3.5 Blood BLOOD SPECIMEN / Unknown 10/29/2024 1:27 PM EDT 10/29/2024 1:32 PM EDT us Bola Miller MD HEMATOLOGY ORDERABLES Final Res ult Performing Organization Address [facility]/ZIP Co de Phone Number [facility] [address] [phone] * HCG, Quantitative, (10/29/2024 1:27 PM EDT) hCG Quant <0.2 <5 mIU/mL 10/29/2024 1:27 PM EDT [facility] Comment: Non-preg premeno <=5 Postmeno <=8 Male <=3 If HCG results do not concur with clinical observations, additional testing to confirm results is recommended. BLOOD SPECIMEN / Unknown 10/29/2024 1:27 PM EDT 10/29/2024 1:57 PM EDT us Bola Miller MD CHEMISTRY ORDERABLES Final Resu lt Performing Organization Address [facility]/ZIP Co de Phone Number [facility] [address] [facility] [place] [address], [facility] [phone] * (ABNORMAL) JODEE ZORAIDA DIGITAL DIAGNOSTIC UNILATERAL RIGHT (04/27/2023 1:25 PM EST) Anatomical Region Laterality Modality Breast Right Mammography 04/27/2023 1:25 PM EST Impressions 04/27/2023 6:32 PM EST BIRADS: 4 - Findings demonstrate a suspicious [...] The findings were discussed with the patient. Narrative 04/27/2023 6:32 PM EST EXAM: [facility] DIGITAL DIAGNOSTIC UNILATERAL RIGHT, US [...] This could be performed under ultrasound guidance. us Duy Mcclelland MD IM MAMMOGRAPHY ORDERABLES Fi nal Result * [facility] Cytology (02/26/2023 12:00 AM EDT) Cytology Report Path Number: [id number] DIAGNOSIS Imaged ThinPrep Pap - Cervical (1 monolayer slide): Specimen Adequacy: Satisfactory for evaluation. - Endocervical/trans formation zone component present. Descriptive Diagnosis: Negative for intraepithelial lesion or malignancy. Comments: Specimen was screened at [facility], [address] [place] [address] Cytotech Screener: KUNAL Electronically Signed Out PARMINDER Jung(ASCP) cs/03/06/2023 Source of Specimen: A: Imaged ThinPrep Pap - Cervical (1 monolayer slide) HPV Reflex?........... 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 The Pap smear is a screening test primarily for squamous epithelial lesions, which is subject to both false negative and false positive results. Your patient should be reminded to consult you immediately if she experiences any suspicious signs or symptoms, regardless of her Pap smear result. GYNECOLOGIC CYTOLOGY REPORT Patient Name: NAHUM ROBERTS [facility] Rec: [id number] [facility] ANATOMIC PATHOLOGY [address] [place] [phone] [employer] CERVICAL MATERIAL 02/26/2023 023 9:25 AM EDT Duy Mcclelland MD PATHOLOGY/CYTOLOGY ORDERABLES Final Result [facility] [address] [place] [address] [phone] [facility] from Last 3 Months or Most Recently Relevant to Health Maintenance Insurance Care Teams Credit Checker Relationship Specialty Start Date End Date Abhay Moreno MD [address] [place] [address] PCP - General 10/13/12
--- OUTSIDE RECORDS SUMMARY | 2024-11-17 10:04 | XMS_ITS | Encounter Summary ---
Author Organization [facility] Address [address] [place] [address] Care Team Providers Care Polymer Chemist Name Role Phone Abhay Moreno MD Primary Care Provider [phone] Encounter Details Date Type Department Care Team (Late st Contact Info) Description 03/15/2023 Orders Only [facility] Part of [address] [place], [place] [address] Provider, MD Vinay Social History Tobacco Use [...] CT ABDOMEN PELVIS W CONTRAST Routine 02/18/2023 JODEE DIGITAL DIAGNOSTIC UNILA TERAL LEFT Routine 09/19/2010 JODEE DIAGNOSTIC BILATERAL Routine 07/24/2010 documented in this encounter Results * CT Abdomen Pelvis W Contrast (02/18/2023) Anatomical Region Laterality Modality Computed Tomogra phy Historical Provider MD CRONIN CT ORDERABLES Final R esult * JODEE Digital Diagnostic Unilateral Left (09/19/2010) Anatomical Region Laterality Modality Mammography Historical Provider MD CRONIN MAMMOGRAPHY ORDERABLE S Final Result * JODEE DIAGNOSTIC W CAD BILATERAL (07/24/2010) Anatomical Region Laterality Modality Breast Bilateral Mammography Historical Provider MD CRONIN MAMMOGRAPHY ORDERABLE S Final Result documented in this encounter Visit Diagnoses Not on filedocumented in this encounter Care Teams Polymer Chemist Relationship Specialty Start Date End Date Abhay Moreno MD [address] [id number] PCP - General 10/13/12 documented as of this encounter
--- OUTSIDE RECORDS SUMMARY | 2024-11-17 10:04 | XMS_ITS | Encounter Summary ---
Author Organization [facility] Address [address] [place] [address] Care Team Providers Care Special Officer Name Role Phone Abhay Moreno MD Primary Care Provider [phone] Linda Pastrana MD Unavailable [phone] Encounter Details Date Type Department Care Team (Late st Contact Info) Description 11/03/2024 Orders Only [facility] [address] [place] [address] Abbey Carney RN Pre-op testing Social History Tobacco Use Types Packs/Day Years [...] Recorded Patient Health Questionnaire-2 Score 0 10/19/2024 [place] Safety & Environment Answer Date Rec orded [...] Description 11/29/2024 8:30 AM EDT Hospital Encounter [facility] Main Operating Room [address] [place] [phone] Seng Rosado MD [address] [place] [address] 11/29/2024 8:30 AM EDT - 11/29/2024 12:00 PM EDT Surgery [facility] Main Operating Room [address] [place] [phone] Seng Rosado MD [address] [place] [address] THORACOSCOPY, REMOVAL OF PERCARDIAL CYST [32702 (CPT )] Scheduled Orders Name Type Priority Associated Diagnoses Orde r Schedule XR chest 2 views Imaging Routine Pre-op testing Expected: 11/08/2024, Expires: 11/03/2025 Scheduled Procedures Name Priority Associated Diagnoses Date/Ti me THORACOSCOPY Pericardial cyst 11/29/2024 8:30 AM EDT documented as of this encounter Results * Pulmonary function testing [...] Diagnoses Diagnosis Pre-op testing Unspecified pre-operative examination Pre-op testing Unspecified pre-operative examination 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
--- OUTSIDE RECORDS SUMMARY | 2024-11-17 10:04 | XMS_ITS | Encounter Summary ---
Author Organization [facility] Address [address] [place] [address] Care Team Providers Care Toxicology Teacher Name Role Phone Abhay Moreno MD Primary Care Provider [phone] Linda Pastrana MD Unavailable [phone] Encounter Details Date Type Department Care Team (Late st Contact Info) Description 11/13/2024 Orders Only [facility] [address] [place] [address] Abbey Carney RN Pre-op testing; Hypothyroidism, unspecified type; Pericardial cyst; Acute systolic congestive heart failure (CMS/HCC); Abnormal finding of blood chemistry, unspecified Social History Tobacco Use Types Packs/Day Years [...] Recorded Patient Health Questionnaire-2 Score 0 10/19/2024 [place] Safety & Environment Answer Date Rec orded [...] [facility] Main Operating Room [address] [place] [phone] Seng Rosado MD [address] [place] [address] 11/29/2024 8:30 AM EDT - 11/29/2024 12:00 PM EDT Surgery [facility] Main Operating Room [address] [place] [address] Seng Rosado MD [address] [place] [address] THORACOSCOPY, REMOVAL OF PERCARDIAL CYST [72845 (CPT )] Scheduled Orders Name Type Priority Associated Diagnoses Orde r Schedule CBC and differential Lab Routine Pre-op testing Hypothyroidism, unspecified type Pericardial cyst Acute systolic congestive heart failure (CMS/HCC) Expected: 11/13/2024 (Approximate), Expires: 11/13/2025 Urinalysis Lab Routine Pre-op testing Hypothyroidism, unspecified type Pericardial cyst Acute systolic congestive heart failure (CMS/HCC) Expected: 11/13/2024 (Approximate), Expires: 11/13/2025 Type and screen Lab Routine Pre-op testing Hypothyroidism, unspecified type Pericardial cyst Acute systolic congestive heart failure (CMS/HCC) Expected: 11/13/2024 (Approximate), Expires: 11/13/2025 Comprehensive metabolic panel Lab Routine Pre-op testing Hypothyroidism, unspecified type Pericardial cyst Acute systolic congestive heart failure (CMS/HCC) Expected: 11/13/2024 (Approximate), Expires: 11/13/2025 Magnesium Lab Routine Pre-op testing Hypothyroidism, unspecified type Pericardial cyst Acute systolic congestive heart failure (CMS/HCC) Expected: 11/13/2024 (Approximate), Expires: 11/13/2025 Phosphorus Lab Routine Pre-op testing Hypothyroidism, unspecified type Pericardial cyst Acute systolic congestive heart failure (CMS/HCC) Expected: 11/13/2024 (Approximate), Expires: 11/13/2025 APTT Lab Routine Pre-op testing Hypothyroidism, unspecified type Pericardial cyst Acute systolic congestive heart failure (CMS/HCC) Expected: 11/13/2024 (Approximate), Expires: 11/13/2025 Protime-INR Lab Routine Pre-op testing Hypothyroidism, unspecified type Pericardial cyst Acute systolic congestive heart failure (CMS/HCC) Expected: 11/13/2024 (Approximate), Expires: 11/13/2025 Hemoglobin A1c Lab Routine Pre-op testing Hypothyroidism, unspecified type Pericardial cyst Acute systolic congestive heart failure (CMS/HCC) Abnormal finding of blood chemistry, unspecified Expected: 11/13/2024 (Approximate), Expires: 11/13/2025 Lipid panel Lab Routine Pre-op testing Hypothyroidism, unspecified type Pericardial cyst Acute systolic congestive heart failure (CMS/HCC) Expected: 11/13/2024 (Approximate), Expires: 11/13/2025 TSH Lab Routine Pre-op testing Hypothyroidism, unspecified type Pericardial cyst Acute systolic congestive heart failure (CMS/HCC) Expected: 11/13/2024 (Approximate), Expires: 11/13/2025 Prepare RBC: 2 Units Blood Bank Routine Pre-op testing Hypothyroidism, unspecified type Pericardial cyst Acute systolic congestive heart failure (CMS/HCC) Expected: 11/13/2024 (Approximate), Expires: 11/13/2025 XR chest 2 views Imaging Routine Pre-op testing Hypothyroidism, unspecified type Pericardial cyst Acute systolic congestive heart failure (CMS/HCC) Expected: 11/18/2024, Expires: 11/13/2025 Scheduled Procedures Name Priority Associated Diagnoses Date/Ti me THORACOSCOPY Pericardial cyst 11/29/2024 8:30 AM EDT documented as of this encounter Visit Diagnoses Diagnosis Pericardial cyst- Primary Other specified congenital anomaly of heart Pre-op testing Unspecified pre-operative examination Hypothyroidism, unspecified type Pericardial cyst Other specified congenital anomaly of heart Acute systolic congestive heart failure (CMS/HCC) Abnormal finding of blood chemistry, unspecified Pericardial cyst Other specified congenital anomaly of heart documented in this encounter Care Teams Toxicology Teacher Relationship Specialty Start Date End Date Abhay Moreno MD [address] [place] [address] PCP - General 07/14/23 Linda Pastrana MD [address] [place] [address] Consulting Physician Hematology and Oncology 07/14/23 documented as of this encounter
--- OUTSIDE RECORDS SUMMARY | 2024-11-17 10:04 | XMS_ITS | Encounter Summary ---
Author Organization [facility] Address [address] [place] [address] Care Team Providers Care Fish Worm Grower Name Role Phone Abhay Moreno MD Primary Care Provider [phone] Linda Pastrana MD Unavailable [phone] Reason for Visit * Reason Onset Date Comments Pre-op Instructions 11/17/2024 Encounter Details Date Type Department Care Team (Late st Contact Info) Description 11/17/2024 Telephone [facility] Heart and Vascular Cardioth[facility]acic Surgery Center [address] [place] [address] Abbey Carney RN Pre-op Instructions Social History Tobacco Use Types Packs/Day Years [...] Recorded Patient Health Questionnaire-2 Score 0 10/19/2024 [place] Safety & Environment Answer Date Rec orded [...] PM EST documented as of this encounter Miscellaneous Notes * Telephone Encounter - Abbey Carney RN - 11/17/2024 9:34 AM EDT Patient was given the following written pre-op Instructions: Surgical Date: November 29, 2024 Arrival Time: 0630 surgery scheduled at 0830 Pre-Op Testing Today or Next Week Labs-Urinalysis & blood draw (Lab hours Mon-Fri 6am-5pm) Chest Xray- (Radiology hours Mon-Fri 630am-430pm) CHG wipes as instructed. Nothing to eat or drink after midnight prior to surgery. Medications to be taken/held the day of surgery: Stop all vitamins one week prior to surgery. Stop Losartan 3 days prior to surgery. You will only take any metoprolol the morning of surgery. Reminder: Bring the Blood bland given to you from the lab to the hospital the day of surgery. Check in at registration desk in main lobby of [facility] then check in on second floor at surgical waiting room desk. documented in this encounter Plan of Treatment Upcoming Encounters Date Type Department Care Team (Late st Contact Info) Description 11/29/2024 8:30 AM EDT Hospital Encounter [facility] Main Operating Room [address] [place] [address] Seng Rosado MD [address] [place] [address] 11/29/2024 8:30 AM EDT - 11/29/2024 12:00 PM EDT Surgery [facility] Main Operating Room [address] [place] [phone] Seng Rosado MD [address] [place] [address] THORACOSCOPY, REMOVAL OF PERCARDIAL CYST [29790 (CPT )] Scheduled Procedures Name Priority Associated Diagnoses Date/Ti me THORACOSCOPY Pericardial cyst 11/29/2024 8:30 AM EDT documented as of this encounter Visit Diagnoses Not on filedocumented in this encounter Care Teams Fish Worm Grower Relationship Specialty Start Date End Date Abhay Moreno MD [address] [facility] [place] [address] PCP - General 07/14/23 Linda Pastrana MD [address] [facility] [place] [phone] Consulting Physician Hematology and Oncology 07/14/23 documented as of this encounter
--- OUTSIDE RECORDS SUMMARY | 2024-11-17 10:04 | XMS_ITS | Encounter Summary ---
Author Organization [facility] Address [address] [place] [address] Care Team Providers Care Director Acute Name Role Phone Abhay Moreno MD Primary Care Provider [phone] Encounter Details Date Type Department Care Team (Latest Contact Info) Description 11/15/2024 Travel Social History Tobacco Use Types Packs/Day Years [...] on filedocumented in this encounter Care Teams Director Acute Relationship Specialty Start Date End Date Abhay Moreno MD [address] [place] [address] PCP - General 10/13/12 documented as of this encounter
--- OUTSIDE RECORDS SUMMARY | 2024-11-17 10:04 | XMS_ITS | Referral Summary ---
Author Organization [facility] Address [address] [place] [address] Care Team Providers Care Supervisor Instrument Mechanics Name Role Phone Abhay Moreno MD Primary Care Provider [phone] Linda Pastrana MD Unavailable [phone] Encounters Date Type Department Care Team Description 11/17/2024 Telephone [facility] Cardiothoracic Surgery [place] [address] [place] [address] Abbey Carney RN Pre-op Instructions 11/16/2024 3:00 PM EDT Consult [facility] Cardiothoracic Surgery [place] [address] [place] [address] Alexa Macias, CAN MARKER Arrived 11/13/2024 Orders Only [facility] Vascular Cardiothoracic Surgery [place] [address] [place] [address] Abbey Carney RN Pre-op testing; Hypothyroidism, unspecified type; Pericardial cyst; Acute systolic congestive heart failure (CMS/HCC); Abnormal finding of blood chemistry, unspecified 2024 Orders Only [facility] Vascular Cardiothoracic Surgery [place] [address] [place] [address] Abbey Carney RN Pericardial cyst 11/09/2024 Telephone [facility] [address] [place] [address] Yaa Mac MA 11/08/2024 8:41 AM EDT - 11/08/2024 11:59 PM EDT Hospital Encounter [facility] Pulmonary Function Testing [address] [facility] 3rd [place] [address] Pre-op testing Discharge Disposition: Home or Self Care () 11/03/2024 Orders Only [facility] Heart and Vascular Cardiothoracic Surgery [place] [address] [place] [address] Abbey Carney RN Pre-op testing 10/30/2024 2:30 PM EDT Follow-Up [facility] [address] [place] [address] Chintan Ragland MD Chronic systolic congestive heart failure (CMS/HCC) (Primary Dx); Pericardial cyst; Noncompaction cardiomyopathy (CMS/HCC) 10/26/2024 Telephone [facility] [address] [place] [address] Yaa Mac MA 10/20/2024 Travel 10/20/2024 10:00 AM EDT - 10/20/2024 11:00 AM EDT Surgery [facility] [place] [facility] [address] [facility] [place] [address] Chintan Ragland MD Coronary angiography [15667 (CPT )] 10/20/2024 8:42 AM EDT - 10/20/2024 2:33 PM EDT Hospital Encounter [facility] Heart [facility] Vascular Lab [address] [facility] [place] [address] Chintan Ragland MD Acute systolic congestive heart failure (CMS/HCC); Shortness of breath; Abnormal findings on diagnostic imaging of heart and coronary circulation Discharge Disposition: Home or Self Care () 10/19/2024 3:00 PM EDT Consult [facility]ascular Cardiothoracic Surgery [place] [address] [place] [address] Seng Rosado MD Pericardial cyst (Primary Dx); Acute systolic congestive heart failure (CMS/HCC) 10/18/2024 Travel 10/10/2024 12:05 AM EDT - 10/10/2024 11:59 PM EDT Hospital Encounter [facility] Radiology External Films [address] [place] [address] Discharge Disposition: Home or Self Care (01) 10/10/2024 - 10/10/2024 12:04 AM EDT Hospital Encounter [facility] Radiology [employer] [facility] [address] [place] [address] Discharge Disposition: Home or Self Care (01) 10/03/2024 - 10/03/2024 11:59 PM EDT Hospital Encounter [facility] Radiology [employer] [facility] [address] [place] [address] Discharge Disposition: Home or Self Care (01) 10/03/2024 Telephone [facility] Cardioth[facility] [address] [place] [address] Lashay Parikh MA Other 09/29/2024 1:45 PM EDT Office Visit [facility] [address] [place] [address] Chintan Ragland MD Abnormal echocardiogram (Primary Dx); Acute systolic congestive heart failure (CMS/HCC); Pericardial cyst; Shortness of breath; Abnormal findings on diagnostic imaging of heart and coronary circulation from Last 3 Months Allergies Active Allergy Reactions Criticality Noted Date [...] of breast 03/14/2013 Breast lump 02/23/2013 07/14/2023 Immunizations Name Administration Dates Next Due DTaP, Unspecified 01/10/1979 MMR 06/08/1981 Polio, Unspecified 01/10/1979 Social History Tobacco Use Types Packs/Day Years [...] Description 11/29/2024 8:30 AM EDT Hospital Encounter [facility] Main Operating Room [address] [facility] [place] [address] Seng Rosado MD [address] [place], [place] [phone] 11/29/2024 8:30 AM EDT - 11/29/2024 12:00 PM EDT Surgery [facility] Main Operating Room [address] [facility] [place] [address] Seng Rosado MD [address] [place], [place] [phone] THORACOSCOPY, REMOVAL OF PERCARDIAL CYST [26603 (CPT )] Scheduled Procedures Name Priority Associated Diagnoses Date/Ti me THORACOSCOPY Pericardial cyst 11/29/2024 8:30 AM EDT Procedures Procedure Name Priority Date/Time Associated Diagnosis [...] informed consent. she was brought to the director of cardiac cath lab in a fasting state. The right neck area was prepped and draped in usual fashion. Micropuncture technique was used for access under ultrasound guidance into the right internal jugular vein. A 6-Kiswahili x 11 cm sheath was placed. The right wrist area was prepped and draped in usual fashion. Micropuncture technique was used for access in the right radial artery. A 5-Kiswahili x 11 cm sheath was placed. Verapamil was given through the sheath, and heparin was administered intravenously. A 6-Kiswahili Ayala catheter was used for right heart catheterization and measurement of pressures and calculation of cardiac output using the estimated Lukas method. Ayala catheter was removed. Bilateral selective coronary angiography was then performed using 5-Kiswahili JL3.5 and JR5 diagnostic catheters. Catheters were [...] (ABNORMAL) POC Hb02% (10/20/2024 12:00 PM EDT) [facility] [id number]% 71.4(A) 90 - 95 % QC Pass/Fail Passed QC LOT # [id number] QC Expiration Date 73,126 SAMPLESITE nl Blood Venous blood specimen / Unknown 10/20/2024 12:00 PM EDT Narrative Hal Polanco, EVELIA - 10/23/2024 5:49 AM EDT Drywall Finishing Foreman 3851 Chintan Ragland MD POINT OF CARE TEST E NTER/EDIT ORDERABLES * ECG 12 lead (10/20/2024 9:25 AM EDT) [facility] Ventricular Rate 90 BPM GE MUSE Atrial Rate 90 BPM GE MUSE MS Interval 128 ms GE MUSE QRS DURATION 76 ms GE MUSE QT Interval 364 ms GE MUSE QTC CALCULATION(BAZE TT) 445 ms GE MUSE P [place] 76 degrees GE MUSE R-[place] 40 degrees GE MUSE T Wave [place] 44 degrees GE MUSE 10/20/2024 9:18 AM EDT 10/20/2024 9:37 AM EDT Impressions GE MUSE - 10/20/2024 9:38 AM EDT Normal sinus rhythm Normal ECG No previous ECGs available Confirmed by Vance WEISS SAMER J. ([id number]) on 10/20/2024 9:37:59 AM Narrative Procedure Note Kimmie Weiss MD - 10/20/2024 IMPRESSION: Normal sinus rhythm Normal ECG No previous ECGs available Confirmed by Vance WEISS SAMER J. ([id number]) on 10/20/2024 9:37:59 AM Chintan Ragland MD ECG ORDERABLES Performing Organization Address [facility] Co de Phone Number GE MUSE * POCT [...] MD IMG CT PROCEDURES Performing Organization Address City/[facility] Co de Phone Number IMAGING * XR transfer of outside films (10/10/2024 12:00 AM EDT) Narrative IMAGING - 10/10/2024 12:25 PM EDT This order has been auto-finalized and does not contain a result. Seng Rosado MD IMG XR PROCEDURES Performing Organization Address City/[facility]/ZIP Co de Phone Number IMAGING * US transfer of outside films (10/03/2024 12:00 AM EDT) Narrative IMAGING - 10/03/2024 12:51 PM EDT This order has been auto-finalized and does not contain a result. Seng Rosado MD IMG US PROCEDURES Performing Organization Address City/[facility]/ZIP Co de Phone Number IMAGING * ECG 12 lead unit performed (09/29/2024 1:55 PM EDT) Chintan Ragland MD ECG ORDERABLES * Bilateral screening mammogram with tomosynthesis (01/04/2015) Anatomical Region Laterality Modality Breast Bilateral Mammography Historical Provider IMG BI PROCEDURES from Last 3 Months or Most Recently Relevant to Health Maintenance Care Teams Supervisor Instrument Mechanics Relationship Specialty Start Date End Date Abhay Moreno MD [address] [facility] [address] [address] PCP - General 07/14/23 Linda Pastrana MD [address] [place] [phone] Consulting Physician Hematology and Oncology 07/14/23
[2024-11-17 10:15] LABS: Glucometer 106 mg/dL (74-106)
--- NOTE | 2024-11-17 10:24 | ED_ITS ---
HPI HPI - General Adult General Chief complaint: Chest Pain Stated complaint: JAW PAIN, CHEST PAIN, WEAKNESS Time Seen by Provider: 11/17/24 10:20 Source: patient History of Present Illness HPI narrative: Patient is a 44-year-old female who is presenting with her and father for evaluation of left-sided neck pain and left-sided upper shoulder pain. Patient also feels that she is too weak and short of breath to talk this morning . Patient had similar symptoms on Wednesday, 2 days ago when she was at [facility]. Patient had lab testing and ER evaluation on Wednesday, was not admitted to the hospital overnight. Patient was discharged feeling better. Patient did not want to stay in the hospital overnight, she wanted to go home because she was seeing her cardiothoracic surgeon Dr. Alcaraz in [place] yesterday because he is going to be removing a cyst on her pericardium on November 29. 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 Del Toro. Patient states that she has a 25% ejection fraction. Patient has been having intermittent sharp left- sided chest pain. Patient has no strokelike signs or symptoms. No acute complaints. Patient says that she felt like she fell down 35 steps, but she did not. Patient's PCP is Dr. PRICE All systems are negative except as noted/marked. All systems reviewed and otherwise negative. Nurses note and vital signs reviewed and patient is not hypoxic. General: The patient appears well and in no apparent distress. Patient is resting comfortably on cart. Patient is not toxic, lethargic, or listless patient initially is histrionic,. Appears and tells me that she is weak, mild s hortness of breath and is having hard time talking due to these factors. Patient is not hypoxic. She has no aphasia or dysarthria. Skin: Warm, dry, no pallor noted. There is no rash noted. No petechiae, purpura. Head: Normocephalic, atraumatic Eye: Normal conjunctiva, no drainage, EOMI. PERRL Ears, Nose, Mouth, and Throat: oral mucosa is moist. Nares patent. Mouth without vesicles. Cardiovascular: Regular Rate and Rhythm, no murmur, gallop, rub. No reproducible tenderness to palpation to bilateral anterior lateral posterior chest wall. Respiratory: Patient is in no distress, no accessory muscle use, lungs are clear to auscultation, no wheezing, rales or rhonchi Back: non-tender, no CVA tenderness bilaterally to percussion. No CT LS midline pain GI: no tenderness to palpation, no masses appreciated. No rebound, guarding, or rigidity noted. No distention Musculoskeletal: Patient has full range of motion of all of the extremities, no motor, sensory, or focal neurological deficits Neurological: A&O x4, normal speech, NIH 0 Psychiatric: Cooperative; flat affect Related Data Home Medications ?Medication ?Instructions ?Recorded ?Confirmed alprazolam 0.25 mg tablet 0.25 mg PO BID 11/17/2412/06 aspirin 81 mg chewable tablet 1 tab PO QAM 11/17/24 losartan 50 mg tablet 50 mg PO QAM 11/17/24 metoprolol succinate 50 mg 50 mg PO QAM 11/17/2411/17 tablet,extended release 24 hr spironolactone 25 mg tablet 12.5 mg PO QAM 11/17/24 Allergies Allergy/AdvReac Type Severity Reaction Status Date / Time ibuprofen Allergy bleeding Verified 10/15/24 11:57 morphine Allergy Anaphylaxis Verified 10/15/24 11:57 Penicillins Allergy Anaphylaxis Verified 10/15/24 11:57 Opioid HPI Opioid Management Most Recent Opioid Data: Last Pain Scale 9 02/18/23, 12:00 Ur Phencyclidine Scrn, (NEGATIVE) Negative , 13:20 [facility] Medical History (Updated 11/17/24 @ 13:39 by Jules Hector MD) HTN (hypertension) ?I10 - Essential (primary) hypertension (ICD-10) TIA (transient ischemic attack) ?G45.9 - Transient cerebral ischemic attack, unspecified (ICD-10) CHF (congestive heart failure) ?I50.9 - Heart failure, unspecified (ICD-10) Social History Smoking status: Heavy tobacco smoker Little interest or pleasure in doing things: not at all Feeling down, depressed, or hopeless: not at all Exam Constitutional Vital Signs, click to edit/add: Last Vital Signs Temp 97.8 F 11/17/24 09:59 Pulse 60 11/17/24 09:59 Resp 16 11/17/24 09:59 BP 123/84 11/17/24 09:59 Pulse Ox 100 11/17/24 09:59 O2 Del Method Room Air 11/17/24 09:59 Course Vital Signs Vital signs: Vital Signs Temperature 97.8 F 11/17/24 09:59 Pulse Rate 60 11/17/24 09:59 Respiratory Rate 16 11/17/24 09:59 Blood Pressure 123/84 11/17/24 09:59 Pulse Oximetry 100 11/17/24 09:59 Oxygen Delivery Method Room Air 11/17/24 09:59 Temperature 97.8 F 11/17/24 09:59 Pulse Rate 60 11/17/24 09:59 Respiratory Rate 16 11/17/24 09:59 Blood Pressure 123/84 11/17/24 09:59 Pulse Oximetry 100 11/17/24 09:59 Oxygen Delivery Method Room Air 11/17/24 09:59 Medical Decision Making MDM Narrative Medical decision making narrative: Patient seen and examined: Cardiac and stroke evaluation, stroke alert is not being called, she has no strokelike signs or symptoms at this time. History of TIA. Differential diagnosis includes but is not limited to: Intracranial hemorrhage, brain mass, TIA, dehydration, electrolyte abnormality, ACS, dehydration, psychogenic Diagnostics and management: Patient will have laboratory studies Relevant laboratory interpretation: No acute changes or findings Radiological studies: Please see the formal radiological report. CT of the head neck, CT of the head showed no acute findings, a copy of the report has been given to her. Reevaluation: Patient does feel better after only 300 cc of IV fluid, no additional testing has been done. Patient was started at 100 cc an hour secondary to history of heart failure and low ejection fraction. Shared decision making: I discussed with the patient the necessary laboratory findings and radiological findings. Social barriers to healthcare: There are no food insecurities, there is no issue with transportation, there are no insurance barriers. Disposition: I discussed with the patient and the case with Dr. PRICE. Patient does not want to be admitted to the hospital. Patient's case and presentation was discussed at length with Dr. Price today. He will see the patient in the office on Wednesday. He is aware of the cyst that can be removed from the pericardium. Several questions were answered for father and . Lab Data Lab results reviewed: Yes I reviewed the patient's lab results Labs: Lab Results 11/17/24 11/17/24 11/17/24 Range/Units 10:10 10:14 11:10 WBC 7.7 (4.0-11.0) 10^3/uL RBC 4.30 (4.20-5.40) 10^6/uL Hgb 13.8 (12.0-16.0) g/dL Hct 39.6 (36.0-48.0) % MCV 92.1 (81.0-99.0) fL MCH 32.1 (26.7-34.0) pg MCHC 34.8 (29.9-35.2) g/dL RDW 12.2 (11.0-15.0) % Plt Count 230 (150-450) 10^3/uL MPV 9.7 (9.5-13.5) fL Neut % (Auto) 50.6 (43.0-75.0) % Lymph % (Auto) 38.6 (20.5-60.0) % [place] % (Auto) 9.2 (1.7-12.0) % Eos % (Auto) 1.0 (0.9-7.0) % Baso % (Auto) 0.5 (0.2-2.0) % Neut # (Auto) 3.9 (1.4-6.5) 10^3/uL Lymph # (Auto) 3.0 (1.2-3.8) 10^3/uL [place] # (Auto) 0.7 (0.3-0.8) 10^3/uL Eos # (Auto) 0.1 (0.0-0.7) 10^3/uL Baso # (Auto) 0.0 (0.0-0.1) 10^3/uL Abs Immat Gran (auto) 0.01 (0.00-0.03) 10^3/uL Imm/Tot Granulo (auto) 0.1 (0.0-0.5) % PT 10.5 (9.0-11.6) sec INR 0.99 APTT 27.9 (22.3-36.2) sec Sodium 141 (136-145) mmol/L Potassium 4.3 (3.5-5.1) mmol/L Chloride 105 (98-107) mmol/L Carbon Dioxide 25.1 (21.0-32.0) mmol/L Anion Gap 15.2 BUN 12.0 (7.0-18.0) mg/dL Creatinine 0.63 (0.55-1.02) mg/dL Est GFR ( Amer) >60 (>=60 mL/min/1.73m^2) Est GFR (Non-Af Amer) >60 (>=60 mL/min/1.73m^2) BUN/Creatinine Ratio 19.0 Glucose 102 (74-106) mg/dL Calcium 9.1 (8.5-10.1) mg/dL Total Bilirubin 0.7 (0.2-1.0) mg/dL AST 15 (15-37) U/L ALT 26 (14-59) U/L Alkaline Phosphatase 72 (46-116) U/L Troponin I High Sens 6.3 (4.0-51.3) pg/mL Total Protein 7.1 (6.4-8.2) g/dL Albumin 3.8 (3.4-5.0) g/dL Globulin 3.3 g/dL Albumin/Globulin Ratio 1.2 POC Glucose 106 (74-106) mg/dL ECG Data Attestation: I personally reviewed and interpreted this ECG as follows: (EKG interpretation. Normal sinus rhythm at 55 beats a minute. Normal axis deviation. No acute ST elevation, no acute ectopy. QTc of 415.) Discharge Plan Discharge Chief Complaint: Chest Pain Clinical Impression: Neck pain on left side, Weakness generalized Patient Disposition: Home, Self-Care Condition: Fair Prescriptions / Home Meds: No Action alprazolam 0.25 mg tablet 0.25 mg PO BID aspirin 81 mg tablet,chewable 1 tab PO QAM losartan 50 mg tablet 50 mg PO QAM metoprolol succinate 50 mg tablet extended release 24 hr 50 mg PO QAM spironolactone 25 mg tablet 12.5 mg PO QAM Print Language: Malaysian Instructions: Weakness (ED), Chronic Neck Pain (DC) Additional Instructions: I touched base with Dr. PRICE. He is aware of patient's ER evaluation, CT of the head, CTA of the head and neck were discussed with the patient. Patient was given a copy of the CT of the head and CTA of the head and neck. Patient's lab work was discussed as well. Patient will continue with her outpatient testing. Patient wants to go home, she does not want to be admitted to the hospital. Dr Price aware. Please return back to the ER for any other acute concerns or complications. Referrals: Abhay Price MD [Primary Care Provider, [facility]] - 1 week Discharge Date/Time: 11/17/24 13:54
--- NOTE | 2024-11-17 10:25 | XR_ITS ---
The [address] [address] Patient Name: NAHUM SEGOVIA MRN: [id number] date: 1980 Sex: F Assigned Patient Location: ER Current Patient Location: ER Accession/Order Number: [id number] Exam Date: 11/17/2024 10:54 Report Date: 11/17/2024 10:56 At the request of: ANA GONZALEZ MD Procedure: XR chest 2V XR chest 2V 11/17/2024 10:48 AM SIGNS AND SYMPTOMS: ^jaw pain , chest pain, weakness PROTOCOL: Frontal and lateral radiographs of the chest COMPARISON: 02/18/2023 FINDINGS: The trachea is midline. Patient has a similar pericardial fluid collection along the right heart border. A generator is noted in the left anterior chest wall. The lung parenchyma is clear. The bony thorax is intact. XR/XR chest 2V IMPRESSION: No acute cardiopulmonary pathology. Chronic findings are redemonstrated as above. Impression dictated by: Homero Leos M.D. 11/17/2024 10:56 AM Dictation Location: [employer] Electronically authenticated by: [id number] Y Date: 11/17/2024 10:56
--- NOTE | 2024-11-17 10:25 | ECG_ITS ---
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 Measurements Intervals [place]ora Rate: 55 P: 65 WV: 138 QRS: 57 QRSD: 80 T: 57 QT: 426 QTc: 415 Interpretive Statements 1100 Sinus rhythm 9110 normal ECG Compared to ECG 10/15/2024 11:59:29 No significant changes Electronically Signed On 11-17-2024 18:24:38 EDT by SARAH FIELDS M.D.
[2024-11-17 10:32] LABS: Basophils Percent Auto 0.5 % (0.2-2.0); Eosinophils Absolute Auto 0.1 10^3/uL (0.0-0.7); Hematocrit 39.6 % (36.0-48.0); Hemoglobin 13.8 g/dL (12.0-16.0); Immature Granulocytes Abs Auto 0.01 10^3/uL (0.00-0.03); Immature Granulocytes Pct Auto 0.1 % (0.0-0.5); Lymphocytes Percent Auto 38.6 % (20.5-60.0); Mean Corpuscular HGB Conc 34.8 g/dL (29.9-35.2); Mean Corpuscular Hemoglobin 32.1 pg (26.7-34.0); Mean Corpuscular Volume 92.1 fL (81.0-99.0); Mean Platelet Volume 9.7 fL (9.5-13.5); Monocytes Absolute Auto 0.7 10^3/uL (0.3-0.8); Monocytes Percent Auto 9.2 % (1.7-12.0); Neutrophils Absolute Auto 3.9 10^3/uL (1.4-6.5); Neutrophils Percent Auto 50.6 % (43.0-75.0); Platelet Count 230 10^3/uL (150-450); Red Cell Distribution Width 12.2 % (11.0-15.0); White Blood Count 7.7 10^3/uL (4.0-11.0)
[2024-11-17] MEDS: 0.9 % SODIUM CHLORIDE 1,000 ML 100 ML IV (10:43)
[2024-11-17 10:56] LABS: Anion Gap 15.2
[2024-11-17 10:58] LABS: Alanine Aminotransferase 26 U/L (14-59); Albumin Globulin Ratio 1.2; Albumin Level 3.8 g/dL (3.4-5.0); Alkaline Phosphatase 72 U/L (46-116); Aspartate Amino Transferase 15 U/L (15-37); Bilirubin Total 0.7 mg/dL (0.2-1.0); Calcium 9.1 mg/dL (8.5-10.1); Carbon Dioxide 25.1 mmol/L (21.0-32.0); Chloride 105 mmol/L (98-107); Estimated GFR (African America >60 (>=60 mL/min/1.73m^2); Estimated GFR (Non-African Ame >60 (>=60 mL/min/1.73m^2); Globulin 3.3 g/dL; Glucose 102 mg/dL (74-106); Potassium 4.3 mmol/L (3.5-5.1); Sodium 141 mmol/L (136-145); Total Protein 7.1 g/dL (6.4-8.2); Troponin I High Sensitivity 6.3 pg/mL (4.0-51.3)
--- NOTE | 2024-11-17 11:15 | CT_ITS ---
The [address] [address] Patient Name: NAHUM SEGOVIA MRN: [id number] date: 1980 Sex: F Assigned Patient Location: ER Current Patient Location: ER Accession/Order Number: [id number] Exam Date: 11/17/2024 12:35 Report Date: 11/17/2024 12:50 At the request of: ANA GONZALEZ MD Procedure: CT head/brain wo con CLINICAL DATA: Left jaw and neck pain. Difficulty walking for the past couple days and visual changes today. Recent TIA. CT BRAIN WITHOUT CONTRAST: COMPARISON: None TECHNIQUE: Contiguous axial unenhanced images were obtained through the brain. This CT exam was performed using one or more following dose reduction techniques: Automated exposure control, adjustment of the mA and/or kV according to patient size, or use of iterative reconstruction technique. FINDINGS: The ventricles are normal in size and position. There are no areas of abnormal attenuation. There is no hemorrhage, mass effect or extra-axial collections. There could be partial empty sella and borderline low-lying cerebellar tonsils. The imaged paranasal sinuses and mastoid air cells are clear. No otitis is noted. CT/CT angio head IMPRESSION: NO ACUTE INTRACRANIAL ABNORMALITY. IF SYMPTOMS PERSIST, FOLLOW-UP MRI COULD BE CONSIDERED. CTA OF THE HEAD AND NECK WITH CONTRAST COMPARISON: None Spiral images were obtained through the neck following 100 MLO lipase 350. Sagittal coronal MIP as well as 3-D volume rendered reconstructions of carotid arteries and [place] were reviewed. Stenosis is evaluated using NASCET criteria. This CT exam was performed using one or more following dose reduction techniques: Automated exposure control, adjustment of the mA and/or kV according to patient size, or use of iterative reconstruction technique. There is an unremarkable three-vessel arch. There is minimal plaque at the proximal left subclavian artery. The vertebral arteries are patent. No focal stenosis or dissection is seen. No carotid artery plaque or luminal narrowing is noted. There is straightening in the normal cervical curvature and mild degenerative changes. There is a small enhancing 6 mm left thyroid nodule. The upper lungs show obstructive changes. The distal vertebral, basilar and posterior cerebral arteries show no significant findings. No carotid siphon plaque or luminal narrowing is identified. The anterior and middle cerebral arteries are patent. No focal stenosis or suspected thrombosis is identified. No aneurysms are seen. IMPRESSION: NO SIGNIFICANT VASCULAR FINDINGS. Impression dictated by: Rosa Jones M.D. 11/17/2024 12:50 PM Dictation Location: [place] [address] Electronically authenticated by: [id number] Y Date: 11/17/2024 12:50
--- NOTE | 2024-11-17 11:15 | CT_ITS ---
The [address] [address] Patient Name: NAHUM SEGOVIA MRN: [id number] date: 1980 Sex: F Assigned Patient Location: ER Current Patient Location: ER Accession/Order Number: [id number] Exam Date: 11/17/2024 12:35 Report Date: 11/17/2024 12:50 At the request of: ANA GONZALEZ MD Procedure: CT head/brain wo con CLINICAL DATA: Left jaw and neck pain. Difficulty walking for the past couple days and visual changes today. Recent TIA. CT BRAIN WITHOUT CONTRAST: COMPARISON: None TECHNIQUE: Contiguous axial unenhanced images were obtained through the brain. This CT exam was performed using one or more following dose reduction techniques: Automated exposure control, adjustment of the mA and/or kV according to patient size, or use of iterative reconstruction technique. FINDINGS: The ventricles are normal in size and position. There are no areas of abnormal attenuation. There is no hemorrhage, mass effect or extra-axial collections. There could be partial empty sella and borderline low-lying cerebellar tonsils. The imaged paranasal sinuses and mastoid air cells are clear. No otitis is noted. CT/CT angio neck IMPRESSION: NO ACUTE INTRACRANIAL ABNORMALITY. IF SYMPTOMS PERSIST, FOLLOW-UP MRI COULD BE CONSIDERED. CTA OF THE HEAD AND NECK WITH CONTRAST COMPARISON: None Spiral images were obtained through the neck following 100 MLO lipase 350. Sagittal coronal MIP as well as 3-D volume rendered reconstructions of carotid arteries and [place] were reviewed. Stenosis is evaluated using NASCET criteria. This CT exam was performed using one or more following dose reduction techniques: Automated exposure control, adjustment of the mA and/or kV according to patient size, or use of iterative reconstruction technique. There is an unremarkable three-vessel arch. There is minimal plaque at the proximal left subclavian artery. The vertebral arteries are patent. No focal stenosis or dissection is seen. No carotid artery plaque or luminal narrowing is noted. There is straightening in the normal cervical curvature and mild degenerative changes. There is a small enhancing 6 mm left thyroid nodule. The upper lungs show obstructive changes. The distal vertebral, basilar and posterior cerebral arteries show no significant findings. No carotid siphon plaque or luminal narrowing is identified. The anterior and middle cerebral arteries are patent. No focal stenosis or suspected thrombosis is identified. No aneurysms are seen. IMPRESSION: NO SIGNIFICANT VASCULAR FINDINGS. Impression dictated by: Rosa Jones M.D. 11/17/2024 12:50 PM Dictation Location: [place] [address] Electronically authenticated by: [id number] Y Date: 11/17/2024 12:50
[2024-11-17 11:32] LABS: INR 0.99; Partial Thromboplastin Time 27.9 sec (22.3-36.2); Prothrombin Time 10.5 sec (9.0-11.6)
--- NOTE | 2024-11-17 11:54 | CT_ITS ---
The [address] [address] Patient Name: NAHUM SEGOVIA MRN: [id number] date: 1980 Sex: F Assigned Patient Location: ER Current Patient Location: ER Accession/Order Number: [id number] Exam Date: 11/17/2024 12:35 Report Date: 11/17/2024 12:50 At the request of: ANA GONZALEZ MD Procedure: CT head/brain wo con CLINICAL DATA: Left jaw and neck pain. Difficulty walking for the past couple days and visual changes today. Recent TIA. CT BRAIN WITHOUT CONTRAST: COMPARISON: None TECHNIQUE: Contiguous axial unenhanced images were obtained through the brain. This CT exam was performed using one or more following dose reduction techniques: Automated exposure control, adjustment of the mA and/or kV according to patient size, or use of iterative reconstruction technique. FINDINGS: The ventricles are normal in size and position. There are no areas of abnormal attenuation. There is no hemorrhage, mass effect or extra-axial collections. There could be partial empty sella and borderline low-lying cerebellar tonsils. The imaged paranasal sinuses and mastoid air cells are clear. No otitis is noted. CT/CT head/brain wo con IMPRESSION: NO ACUTE INTRACRANIAL ABNORMALITY. IF SYMPTOMS PERSIST, FOLLOW-UP MRI COULD BE CONSIDERED. CTA OF THE HEAD AND NECK WITH CONTRAST COMPARISON: None Spiral images were obtained through the neck following 100 MLO lipase 350. Sagittal coronal MIP as well as 3-D volume rendered reconstructions of carotid arteries and [place] were reviewed. Stenosis is evaluated using NASCET criteria. This CT exam was performed using one or more following dose reduction techniques: Automated exposure control, adjustment of the mA and/or kV according to patient size, or use of iterative reconstruction technique. There is an unremarkable three-vessel arch. There is minimal plaque at the proximal left subclavian artery. The vertebral arteries are patent. No focal stenosis or dissection is seen. No carotid artery plaque or luminal narrowing is noted. There is straightening in the normal cervical curvature and mild degenerative changes. There is a small enhancing 6 mm left thyroid nodule. The upper lungs show obstructive changes. The distal vertebral, basilar and posterior cerebral arteries show no significant findings. No carotid siphon plaque or luminal narrowing is identified. The anterior and middle cerebral arteries are patent. No focal stenosis or suspected thrombosis is identified. No aneurysms are seen. IMPRESSION: NO SIGNIFICANT VASCULAR FINDINGS. Impression dictated by: Rosa Jones M.D. 11/17/2024 12:50 PM Dictation Location: [place] [address] Electronically authenticated by: [id number] Y Date: 11/17/2024 12:50
== END 2024-11-17 13:54 | disposition home or self-care (01) ==
PROVIDERS: Emergency Provider Emergency Medicine; PCP Family Medicine
DX: M54.2 Cervicalgia (principal); R53.1 Weakness; Z86.73 Personal history of transient ischemic attack (TIA), and cerebral infarction without residual deficits; R06.02 Shortness of breath; R07.9 Chest pain, unspecified; F17.200 Nicotine dependence, unspecified, uncomplicated; I50.9 Heart failure, unspecified
CPT/HCPCS: 36415; 70450; 70496; 70498; 71046; 80053; 82948; 84484; 85025; 85610; 85730; 93005; 99285; Q9967

== ENCOUNTER 2024-11-27 06:39 | Outpatient (OUT) | payer BC, SELFPAY ==
--- OUTSIDE RECORDS SUMMARY | 2024-11-27 06:42 | XMS_ITS | CCD ---
Author Organization [facility] CliniSynm Care Team Providers Care Developer Programmer Name Role Phone John Price MD Primary Care Provider [phone] John Price Primary Care Physician [phone] Gregg NESS Attending Unavailable John Griffin Referring Unavailabl e Gregg NESS Attending Unavailable HOY ., DR LOPEZ Admitting Unavailable HOY ., DR LOPEZ Attending Unavailable HOY ., DR LOPEZ Primary Care Unavailable HOY ., DR LOPEZ Consulting Unavailable IRVINE, DR RONNIE Fierro Consulting Unavailable HOY ., DR LOPEZ Admitting Unavailable HOY ., DR LOPEZ Attending Unavailable HOY ., DR LOPEZ Primary Care Unavailable HOY ., DR LOPEZ Consulting Unavailable Laura Soriano Consulting Unavailable SHELDON BENNETT Admitting Unavailable SHELDON BENNETT Attending Unavailable HOY ., DR LOPEZ Primary Care Unavailable SHELDON BENNETT Consulting Unavailable NILL ., DR ESCOBEDO Admitting Unavailable NILL ., DR ESCOBEDO Attending Unavailable HOY ., DR LOPEZ Primary Care Unavailable NILL ., DR ESCOBEDO Consulting Unavailable SEMAJ MCGOVERN Consulting Unavailable MARLONMERRILL ELLISON Consulting Unava ilable HOY ., DR LOPEZ Admitting Unavailable HOY ., DR LOPEZ Attending Unavailable HOY ., DR LOPEZ Primary Care Unavailable NILL ., DR ESCOBEDO Admitting Unavailable NILL ., DR ESCOBEDO Attending Unavailable HOY ., DR LOPEZ Primary Care Unavailable NILL ., DR ESCOBEDO Consulting Unavailable JOHN PRICE Primary Care Unavailable CAROL ALVES Referring Unavailable POOL, QUYNH E Referring Unavailable JOHN PRICE Primary Care Unavailable CAROL ALVES Referring Unavailable JOHN PRICE Primary Care Unavailable John Price MD Primary Care Provider [phone] Pool CNM, Quynh Unavailable JEANETTE CALABRESE Referring Unavailable JEANETTE CALABRESE Attending Unavailable HOY, JOHN M Primary Care Unavailable John Price MD Primary Care Provider [phone] [facility] Sergo MUÑOZ Attending Provider [facility] Sergo MUÑOZ Attending Provider John Price MD Primary Care Provider [phone] John Price MD Attending Provider [phone] [facility] Attending Unavailable Hoy, John M Attending Unavailable Hoy, John M Admitting Unavailable Hoy, John M Primary Care Unavailable HOY, JOHN M Primary Care Unavailable BOLA NAM Attending Unavailable HOY, JOHN M Primary Care Unavailable IKER PACHECO Attending Unavailable FANIKOLAY MOREIRA Referring Unavailable HOY, JOHN M Primary Care Unavailable IKER PACHECO Referring Unavailable HOY, JOHN M Primary Care Unavailable NIKOLAY CANTU Referring Unavailable HOY, JOHN M Primary Care Unavailable SARAH RAGLAND Attending Unavailable MOUKARBEL, SARAH Attending Unavailable MOUKAJESSEELSARAH Admitting Unavailable MOUKARBELSARAH Attending Unavailable TRINIDAD FRANCISCO Attending Unavailable DERJARED, SENG Attending Unavailable MOUKASARAH DELGADO Referring Unavailable MOUKARBELSARAH Referring Unavailable DERISO, SENG Referring Unavailable DERISO, SENG Referring Unavailable DERISO, SENG Referring Unavailable DERISO, SENG Referring Unavailable Allergies Allergy Classification Reported Allergen(s) Allergy Type Date of Onset Reaction(s) Facility Adhesive Tape (3 sources) Adhesive Tape Substance Allergy 3 [facility] Latex (3 sources) Latex Substance Allergy 3 [facility] NSAIDs (3 sources) Ibuprofen Drug Allergy 3 [facility] Penicillins (antibiotic) (3 sources) Penicillins Drug Allergy 3 [facility] (11 sources) Adhesive Tape; Translations: [Adhesive tape] Propensity to adverse reactions to drug 5 skin irritation [facility] (8 sources) Desonide; Translations: [DESONIDE] Drug Allergy 5 Other (See Comments) [facility] (9 sources) Ibuprofen; Translations: [IBUPROFEN] Drug Allergy 3 Other (See Comments) [employer] (11 sources) Latex; Translations: [Latex] Propensity to adverse reactions to drug 3 Other (See Comments), Weal (disorder) [employer] Work Phone: (12 sources) Penicillins; Translations: [Penicillins] Propensity to adverse reactions to drug 5 Rash [employer] Work Phone: (7 sources) predniSONE; Translations: [PREDNISONE] Drug Allergy 6 Swelling [employer] Work Phone: (8 sources) Cephalexin; Translations: [cephalexin] Drug Allergy 3 Unknown (qualifier value), Nausea And Vomiting [facility] [place] (2 sources) Penicillin; Translations: [penicillin] Drug Allergy Anaphylaxis (disorder) [facility] [place] (1 source) Cephalexin Drug Allergy [facility] (2 sources) Ibuprofen Drug Allergy 5 [facility] (2 sources) Latex Drug allergy (disorder) 5 [facility] (2 sources) predniSONE Drug Allergy 6 [facility] (6 sources) Morphine; Translations: [MORPHINE] Drug Allergy 3 Other (See Comments) [facility] [employer] (6 sources) fentaNYL; Translations: [fentanyl] Drug Allergy 5 Anaphylaxis [facility] (1 source) Ibuprofen Drug Allergy 5 [facility] (1 source) Latex Drug allergy (disorder) 5 [facility] Rep[facility] (4 sources) Bacitracin Drug Allergy 5 Rash [facility] [employer] [facility] (1 source) Adhesive agent; Translations: [ADHESIVE] Propensity to adverse reactions to drug (disorder) 3 [facility] Repository Medications Current Medications Medication Drug Class(es) Dates Sig (Normalized) Sig (Original) ALPRAZolam 0.25 mg oral tablet (3 sources) Benzodiazepine Start: 11-14-2024 take 1 tablet by mouth twice daily ALPRAZolam (XANAX) 0.25 MG tablet 1 tablet Orally Twice a day for 14 days F41.9 11/14/2024 Active aspirin 81 mg chewable tablet (5 sources) Platelet Aggregation Inhibitor, Nonsteroidal Anti-inflammatory Drug Start: 10-29-2024 take 1 dose by mouth once 324 mg, Oral, ONCE, 1 dose, On 10/29/24 at 1345 Start: 09-29-2024 End: 09-29-2025 take 1 tablet by mouth once daily aspirin 81 MG chewable tablet Take 1 tablet by mouth daily 09/29/2024 09/29/2025 Active 1 ml ketorolac tromethamine 15 mg/ml cartridge (4 sources) Nonsteroidal Anti-inflammatory Drug, Cyclooxygenase Inhibitor Start: 11-25-2024 15 mg, IntraVEN ous, ONCE, 1 dose, On 11/25/24 at 1530, Do not administer for more than 5 days. Start: 11-25-2024 take 1 tablet by prince every six hours as needed for pain ketorolac (TORADOL) 10 MG tablet Take 1 tablet by mouth every 6 hours as needed for Pain 10 tablet 11/25/2024 Active Start: 09-03-2021 End: 09-04-2021 ketorolac (TORADOL) injectio n 30 mg losartan potassium 50 mg oral tablet (4 sources) Angiotensin 2 Receptor Selvin Start: 09-29-2024 End: 09-29-2025 take 1 tablet by mouth once daily losartan (COZAAR) 50 MG tablet Take 1 tablet by mouth daily 09/29/2024 09/29/2025 Active 24 hr metoprolol succinate 25 mg extended release oral tablet (4 sources) beta-Adrenergic Selvin Start: 09-29-2024 End: 09-29-2025 take 2 tablets by mouth once daily metoprolol succinate (TOPROL XL) 25 MG extended release tablet Take 2 tablets by mouth daily 09/29/2024 09/29/2025 Active Start: 09-29-2024 End: 09-29-2025 take 1 tablet by mouth once daily metoprolol succinate (TOPROL XL) 25 MG extended release tablet Take 1 tablet by mouth daily 09/29/2024 09/29/2025 Active ondansetron 4 mg disintegrating oral tablet [...] Other (headache) 10 tablet 0 01/24/2021 Active spironolactone 25 mg oral tablet (3 sources) Aldosterone Antagonist Start: 10-30-2024 End: 10-30-2025 take 2 tablets by mouth at bedtime spironolactone (ALDACTONE) 25 MG tablet Take 2 tablets by mouth at bedtime 10/30/2024 10/30/2025 Active Start: 10-30-2024 End: 10-30-2025 take 0.5 tablet by mouth once daily spironolactone (ALDACTONE) 25 MG tablet Take 0.5 tablets by mouth daily 10/30/2024 10/30/2025 Active Completed/Discontinued Medications Medication Drug Class(es) Dates Sig (Normalized) Sig (Original) acetaminophen 500 mg oral tablet (1 source) Start: 10-29-2024 End: 10-29-2024 take 4000 mg by mouth every twenty-four hours 1,000 mg, Oral, Once, 1 dose, On 10/29/24 at 1400, Maximum dose of acetaminophen is 4000 mg from all sources in 24 hours. albuterol 0.833 mg/ml / ipratropium bromide 0.167 mg/ml inhalation solution (2 sources) Anticholinergic, beta2-Adrenergic Agonist Start: 09-03-2021 End: 09-03-2021 ipratropium-albuter ol (DUONEB) nebulizer solution 1 ampule Start: 09-03-2021 End: 09-03-2021 ipratropium-albuterol (DUONE B) 0.5-2.5 (3) MG/3ML nebulizer solution calcium chloride 0.0014 meq/ml / potassium chloride 0.004 meq/ml / sodium chloride 0.103 meq/ml / sodium lactate 0.028 meq/ml injectable solution (1 source) Start: 09-04-2021 End: 09-04-2021 lactated ringers infusion iopamidol (ISOVUE-370) 76 % injection 100 mL (1 source) Start: 11-15-2024 End: 11-15-2024 take 1 dose intravenously once 100 mL, IntraVENous, IMG ONCE PRN, 1 dose, Starting on Wed11/15/24 at 1051, Until Wed11/15/24 at 1114, Other 1 ml LORazepam 2 mg/ml injection (1 source) Benzodiazepine Start: 09-04-2021 End: 09-04-2021 LORazepam (ATIVAN) injection 1 mg naproxen sodium 275 mg oral tablet (2 sources) Nonsteroidal Anti-inflammatory Drug Start: 02-26-2023 End: 10-29-2024 take 1 tablet by mouth three times daily at mealtime as needed for pain naproxen sodium (ANAPROX) 275 MG tablet Indications: Acute pelvic pain, female Take 1 tablet by mouth 3 times daily (with meals) As needed for pelvic pain 60 tablet 3 02/26/2023 10/29/2024 Discontinued (LIST CLEANUP) 50 ml sodium chloride 9 mg/ml injection (4 sources) Start: 11-25-2024 End: 11-25-2024 250 mL (4.24 mL/kg), IntraVENous, at 125 mL/hr, Administer over 120 Minutes, ONCE, On 11/25/24 at 1415, For 1 dose Start: 11-15-2024 End: 11-15-2024 1,000 mL (16.9 mL/kg), Intra VENous, at 495.9 mL/hr, Administer over 121 Minutes, ONCE, On Wed11/15/24 at 0915, For 1 dose Start: 09-03-2021 End: 09-04-2021 0.9 % sodium [...] Onset: 5 Chronic Congestive heart failure; nonhypertensive (4 sources) Chronic systolic (congestive) heart failure; Translations: [Acute systolic (congestive) heart failure] Onset: 5 Chronic Esophageal disorders (2 sources) Gastroesophageal reflux disease; Translations: [Gastro-esophageal reflux disease without esophagitis] Onset: 2 01-16-2022 Chronic Fluid and electrolyte disorders (1 source) Dehydration; Translations: [Dehydration] Episodic Nonmalignant breast conditions (6 sources) Fibrocystic disease of breast; Translations: [Diffuse cystic mastopathy of unspecified breast] Onset: 3 01-16-2022 Chronic Nonspecific chest pain (2 sources) Chest pain; Translations: [Chest pain, unspecified] Onset: 5 10-29-2024 Episodic Other bone disease and musculoskeletal deformities (1 source) Costal chondritis; Translations: [Chondrocostal junction syndrome [Tietze]] 11-25-2024 Episodic Other connective tissue disease (1 source) Radicular pain; Translations: [Neuralgia and neuritis, unspecified] 11-15-2024 Episodic Other connective tissue disease (1 source) Neuralgia and neuritis, unspecified; Translations: [Neuralgia and neuritis, unspecified] Onset: 5 Episodic Other female genital disorders (1 source) Other specified noninflammatory disorders of vagina; Translations: [Other specified noninflammatory disorders of vagina] Onset: 3 Episodic Other gastrointestinal disorders (3 sources) Diarrhea; Translations: [Diarrhea, unspecified] Onset: 2 Episodic Other gastrointestinal disorders (1 source) History of gastritis 01-16-2022 Episodic Other lower respiratory disease (4 sources) Dyspnea; Translations: [Shortness of breath] Onset: 5 Episodic Other lower respiratory disease (1 source) Shortness of breath; Translations: [Shortness of breath] Onset: 5 Episodic Other nutritional; endocrine; and metabolic disorders (2 sources) Other symptoms and signs concerning food and fluid intake; Translations: [Other symptoms concerning nutrition, metabolism, and development] Onset: 5 11-15-2024 Episodic Other screening for suspected conditions (not mental disorders or infectious disease) (1 source) Abnormal findings on diagnostic imaging of other specified body structures; Translations: [Abnormal findings on diagnostic imaging of other specified body structures] Onset: 5 Chronic Other screening for suspected conditions (not mental disorders or infectious disease) (5 sources) Abnormal findings on diagnostic imaging of breast; Translations: [Other abnormal and inconclusive findings on diagnostic imaging of breast] Onset: 3 05-04-2023 Episodic Robina-; endo-; and myocarditis; cardiomyopathy (except that caused by tuberculosis or sexually transmitted disease) (2 sources) Other cardiomyopathies; Translations: [Other cardiomyopathies] Onset: 5 Chronic Regional enteritis and ulcerative colitis (1 source) Crohn's disease; Translations: [Crohn's disease, unspecified, with unspecified complications] Chronic Residual codes; unclassified (1 source) Tobacco user; Translations: [Tobacco use] Onset: 2 Episodic Screening and history of mental health and substance abuse codes (1 source) Tobacco use and exposure - finding 01-21-2022 Chronic Spondylosis; intervertebral disc disorders; other back problems (6 sources) Cervical disc disorder; Translations: [Cervical disc disorder, unspecified, unspecified cervical region] Onset: 3 01-16-2022 Chronic Substance-related disorders (1 source) Nicotine dependence, cigarettes, uncomplicated; Translations: [NICOTINE DEPEND CIGARETTES UNCOMP] Onset: 2 Chronic Superficial injury; contusion (2 sources) Contusion of head; Translations: [Contusion of unspecified part of head, initial encounter] Episodic Syncope (5 sources) Syncope and collapse; Translations: [Syncope and collapse] Onset: 5 11-15-2024 Episodic Transient cerebral ischemia (2 sources) Transient cerebral ischemia; Translations: [Transient cerebral ischemic attack, unspecified] Onset: 5 11-15-2024 Chronic Unclassified (1 source) Body mass index 20-24 - normal 01-21-2022 Unclassified (1 source) CONTACT W/AND (SUSP) EXPOS COVID-19; Translations: [CONTACT W/AND (SUSP) EXPOS COVID-19] Onset: 2 Urinary tract infections (4 sources) Acute cystitis with hematuria; Translations: [ACUTE CYSTITIS WITH HEMATURIA] Onset: 3 Episodic Past or Other Problems Problem Classification Problem Date Documented Da te Episodic/Chronic Abdominal hernia (6 sources) Left inguinal hernia ; Translations: [Unilateral inguinal hernia, without obstruction or gangrene, not specified as recurrent] Onset: 04-15-2023 01-16-2022 Episodic Benign neoplasm of uterus (6 sources) Uterine leiomyoma; Translations: [Leiomyoma of uterus, unspecified] Onset: 04-15-2023 01-16-2022 Episodic Complications of surgical procedures or medical care (6 sources) Postgastric surgery syndrome; Translations: [Postgastric surgery syndromes] Onset: 04-15-2023 01-16-2022 Episodic Gastritis and duodenitis (6 sources) Gastritis, unspecified, without bleeding; Translations: [Gastritis] Onset: 02-20-2022 04-15-2023 Episodic Immunizations and screening for infectious disease (1 source) Contact with and (suspected) exposure to tuberculosis; Translations: [Contact with and (suspected) exposure to tuberculosis] Onset: 01-05-2024 Episodic Nausea and vomiting (7 sources) Nausea and vomiting; Translations: [Nausea with vomiting, unspecified] Onset: 02-20-2022 Episodic Other connective tissue disease (6 sources) Impingement syndrome of shoulder region; Translations: [Impingement syndrome of unspecified shoulder] Onset: 04-15-2023 01-16-2022 Episodic Other gastrointestinal disorders (6 sources) Hemorrhagic diarrhea ; Translations: [Diarrhea, unspecified] Onset: 04-15-2023 01-21-2022 Episodic Other gastrointestinal disorders (1 source) Change in bowel habit; Translations: [CHANGE IN BOWEL HABIT] Onset: 02-20-2022 Episodic Other gastrointestinal disorders (1 source) Diarrhea, unspecified; Translations: [DIARRHEA UNSPECIFIED] Onset: 02-20-2022 Episodic Other gastrointestinal disorders (5 sources) Altered bowel function; Translations: [Change in bowel habit] Onset: 02-20-2022 04-15-2023 Episodic Residual codes; unclassified (1 source) Acquired absence of other specified parts of digestive tract; Translations: [ACQ ABSENCE OTH PART DIGESTV TRACT] Onset: 02-20-2022 Episodic Residual codes; unclassified (5 sources) Body mass index 20-24 - normal; Translations: [Body mass index (BMI) of 20 to 24] Onset: 04-15-2023 04-15-2023 Episodic Screening and history of mental health and substance abuse codes (5 sources) Tobacco use and exposure - finding; Translations: [Personal history of nicotine dependence] Onset: 04-15-2023 04-15-2023 Episodic Sexually transmitted infections (not HIV or hepatitis) (6 sources) Gonococcal infection, unspecified; Translations: [Gonorrhea] Onset: 03-02-2023 03-02-2023 Episodic Spondylosis; intervertebral disc disorders; other back problems (6 sources) Low back pain; Translations: [Low back pain] Onset: 04-15-2023 01-16-2022 Episodic Tuberculosis (2 sources) Personal history of tuberculosis; Translations: [Personal history of tuberculosis] Onset: 01-05-2024 Episodic Results Test Name Value Interpretation Reference Range Facility APTTon 11-25-2024 aPTT Coag (Bld) [Time] 30.2 s [facility] Comment on above: IV Heparin Therapy Range: 62.0-94.0 [facility] Brain Natriuretic Peptideon 11-25-2024 Natriuretic peptide B (Bld) [Mass/Vol] 73 pg/mL NINF - 300 pg/mL [facility] Comment on above: An age-independent c utoff point of 300 pg/ml has a 98% negative predictive value excluding acute heart failure. CBC with Auto Differentialon 11-25-2024 Basophils (Bld) [#/Vol] 0.02 10*3/uL [facility] Basophils/100 WBC (Bld) 0 % 0 - 2 % [facility] Eosinophils (Bld) [#/Vol] 0.03 10*3/uL [facility] Eosinophils/100 WBC (Bld) 0 % 0 - 5 % [facility] Erythrocyte distribution width (RBC) [Ratio] 12 % Low 12.1 - 15.2 % [facility] Hematocrit (Bld) [Volume fraction] 40.5 % 36.0 - 46.0 % [facility] Hemoglobin (Bld) [Mass/Vol] 14.1 g/dL 12.0 - 16.0 g/dL [facility] Immature granulocytes (Bld) [#/Vol] 0.02 10*3/uL [facility] Immature granulocytes/100 WBC (Bld) 0 % 0 - 5 % [facility] Interpretation and review of laboratory results Abnormal [facility] Lymphocytes/100 WBC (Bld) 33 % 15 - 40 % [facility] Lymphocytes/100 WBC (Bld) 3.15 % [facility] MCH (RBC) [Entitic mass] 31.7 pg 26.0 - 34.0 pg [facility] MCHC (RBC) [Mass/Vol] 34.8 g/dL 31.0 - 37.0 g/dL [facility] MCV (RBC) [Entitic vol] 91 fL 80.0 - 100.0 fL [facility] Monocytes/100 WBC (Bld) 8 % 4 - 8 % [facility] Monocytes/100 WBC (Bld) 0.75 % [facility] Neutrophils/100 WBC (Bld) 59 % 47 - 75 % [facility] Platelet mean volume (Bld) [Entitic vol] 9 fL 6.0 - 12.0 fL [facility] Platelets (Bld) [#/Vol] 262 10*3/uL [facility] RBC (Bld) [#/Vol] 4.45 10*6/uL 4.00 - 5.2 0 m/uL [facility] Segmented neutrophils/100 WBC (Bld) 5.73 % [facility] WBC other (Bld) [#/Vol] 9.7 [facility] Comprehensive Metabolic Pane cristina 11-25-2024 Albumin [Mass/Vol] 4.5 g/dL 3.5 - 5.2 g/dL [facility] Albumin/Globulin [Mass ratio] 1.8 {ratio} 1.0 - 2.5 [facility] ALP [Catalytic activity/Vol] 68 U/L 35 - 104 U/L [facility] ALT [Catalytic activity/Vol] 24 U/L 5 - 33 U/L [facility] Anion gap [Moles/Vol] 11 mmol/L 9 - 17 mmol/L [facility] AST [Catalytic activity/Vol] 17 U/L NINF - 32 U/L [facility] Bilirubin [Mass/Vol] 0.6 mg/dL 0.3 - 1.2 mg/dL [facility] Calcium [Mass/Vol] 9.3 mg/dL 8.6 - 10. 4 mg/dL [facility] Chloride [Moles/Vol] 109 mmol/L High 98 - 107 mmol/L [facility] CO2 [Moles/Vol] 20 mmol/L 20 - 31 mmol/L [facility] Creatinine [Mass/Vol] 0.7 mg/dL 0.5 - 0.9 mg/dL [facility] Est, Glom Filt Rate - PINF [facility] Comment on above: These results are not intended for use [...] following therapy that affects renal tubular secretion. Glucose [Mass/Vol] 104 mg/dL High 70 - 99 mg/dL [facility] Interpretation and review of laboratory results Abnormal [facility] Potassium [Moles/Vol] 3.8 mmol/L 3.7 - 5.3 mmol/L [facility] Protein [Mass/Vol] 7 g/dL 6.4 - 8.3 g/dL [facility] Sodium [Moles/Vol] 140 mmol/L 135 - 144 mmol/L [facility] Urea nitrogen [Mass/Vol] 8 mg/dL 6 - 20 mg/dL [facility] D-Dimer, Quantitativeon 06- Fibrin D-dimer FEU (PPP) [Mass/Vol] [facility] Comment on above: When combined with [...] more prevalent in patients with distal DVT. [facility] No Panel Informationon 11-25 [facility] Portable XR Chest AP single viewon 11-25-2024 No acute pulmonary findings. [facility] EXAM: XR CHEST DIPTI BLE HISTORY: Shortness of breath. COMPARISON: October 29, 2024 - chest plain film; September 04, 2021 - chest CT. TECHNIQUE: A single AP upright portable view of the chest. FINDINGS: The lungs are clear of consolidations. No effusions or evidence for pulmonary edema is seen. Obscuration of the right heart border is associated with a pericardial cyst better delineated on the previous CT. The cardiomediastinal silhouette is stable and the osseous structures appear intact. [facility] Kiara Franco MD - 11/25/2024 EXAM: XR CHEST PORTABLE HISTORY: Shortness of breath. COMPARISON: October 29, 2024 - chest plain film; September 04, 2021 - chest CT. TECHNIQUE: A single AP upright portable view of the chest. FINDINGS: The lungs are clear of consolidations. No effusions or evidence for pulmonary edema is seen. Obscuration of the right heart border is associated with a pericardial cyst better delineated on the previous CT. The cardiomediastinal silhouette is stable and the osseous structures appear intact. IMPRESSION: No acute pulmonary findings. [facility] [employer] Consulting Radiology Study observation (narrative) [facility] Portable XR Chest AP single viewOrdered By: Kiara Franco on 11-25-2024 [facility] Work Phone: [facility] 11-25-2024 INR Coag (PPP) [Relative time] 1.1 {INR} [facility] Comment on above: Therapeutic Range: Moderate Anticoagulant Intensity: INR = 2.0-3.0 High Anticoagulant Intensity: INR = 2.5-3.5 PT Coag (PPP) [Time] 14.0 s [facility] Trop[facility] 11-25-2024 Troponin I.cardiac High sensitivity method [Mass/Vol] ng/L 0 - 14 ng/L [facility] Comment on above: High Sensitivity Tro ponin values cannot be compared with other Troponin methodologies. 3611-23-2024 36 Nichole from [facility] BS nurse mental health case manager called in to provide her information if she is needed. She can be reached at [phone]. Normal [facility] 11-21-2024 36 Phoned patient to le t her know that her primary care physician spoke to our provider regarding Neuro Work Up prior Normal [facility] 3611-20-2024 36 Follow up Normal [facility] Orders Onlyon 11-20-2024 Orders Only [id number] Marizol Segovia 1980 F Date Provider Department Center 11/20/2024 NUSRAT GRAYSON [facility] Medical C Family History Problem Relation Age of Onset Other Mother Diabetes Mother Mitral valve prolapse Mother Hypertension Mother Colon cancer Maternal Grandfather Heart attack Maternal Grandfather Brain Aneurysm Maternal Grandfather Family Status - Relation Status Age at Mother Maternal Grandfather Paternal Grandfather [facility] 36on 11-17-2024 36 Patient was given th e following written pre-op Instructions: Surgical Date: November [...] at registration desk in main lobby of [facility] then check in on second floor at surgical waiting room desk. Normal [facility] Abstracton 11-17-2024 Abstract [id number] Marizol Segovia 1980 F Date Provider Department Center 11/17/2024 [facility] Family History Problem Relation Age of Onset Other Mother Diabetes Mother Mitral valve prolapse Mother Hypertension Mother Colon cancer Maternal Grandfather Heart attack Maternal Grandfather Brain Aneurysm Maternal Grandfather Family Status - Relation Status Age at Mother Maternal Grandfather Paternal Grandfather Normal [facility] 29on 11-16-2024 29 Addended by: TRINIDAD FRANCISCO on: 11/20/2024 10:36 AM Modules accepted: Level of Service Normal [facility] Consulton 11-16-2024 Consult [id number] Marizol Segovia 1980 Date Provider Department Center 11/16/2024 [facility] Family History Problem Relation Age of Onset Other Mother Diabetes Mother Mitral valve prolapse Mother Hypertension Mother Colon cancer Maternal Grandfather Heart attack Maternal Grandfather Brain Aneurysm Maternal Grandfather Family Status - Relation Status Age at Mother Maternal Grandfather Paternal Grandfather Level of Service:65715 [place] OFFICE/OUTPATIENT ESTABLISHED HIGH MDM 40 MIN Reason for Visit and Comments: Pre-op Visit [558] Normal [facility] BMPon 11-15-2024 Anion gap [Moles/Vol] 10 mmol/L 9 - 17 mmol/L [facility] [employer] Calcium [Mass/Vol] 9.3 mg/dL 8.6 - 10. 4 mg/dL [facility] Chloride [Moles/Vol] 106 mmol/L 98 - 107 mmol/L [facility] CO2 [Moles/Vol] 22 mmol/L 20 - 31 mmol/L [facility] Creatinine [Mass/Vol] 0.7 mg/dL 0.5 - 0.9 mg/dL [facility] Florence Alvarez Rate - PINF [facility] Comment on above: These results are not intended for use [...] following therapy that affects renal tubular secretion. Glucose [Mass/Vol] 104 mg/dL High 70 - 99 mg/dL [facility] Interpretation and review of laboratory results Abnormal [facility] Potassium [Moles/Vol] 4.4 mmol/L 3.7 - 5.3 mmol/L [facility] Sodium [Moles/Vol] 138 mmol/L 135 - 144 mmol/L [facility] Urea nitrogen [Mass/Vol] 11 mg/dL 6 - 20 mg/dL [facility] Basic Metabolic Profon 11-15 Anion gap [Moles/Vol] 10 mmol/L Normal 9-17 [facility] Comment on above: Performed By: #### H KAREN DYKES BMP, CDP #### [facility] [address] [place] [address] Botany Teacher: Ronnie Mayo MD Calcium [Mass/Vol] 9.3 mg/dL Normal 8.6-10.4 [facility] Comment on above: Performed By: #### H KAREN DYKES BMP, CDP #### [facility] [address] [place] [id number] Botany Teacher: Ronnie Mayo MD Chloride [Moles/Vol] 106 mmol/L Normal 98-107 [facility] Comment on above: Performed By: #### H JANIA, TROPI BMP, CDP #### [facility] [address] [place], [place] [id number] Botany Teacher: Ronnie Mayo MD CO2 [Moles/Vol] 22 mmol/L Normal 20-31 [facility] Comment on above: Performed By: #### H CG, TROPI BMP, CDP #### [facility] [address] [place], [place] [id number] Botany Teacher: Ronnie Mayo MD Creatinine [Mass/Vol] 0.7 mg/dL Normal 0.5-0.9 [facility] Comment on above: Performed By: #### H KAREN DYKES BMP, CDP #### [facility] [address] [place], [place] [id number] Botany Teacher: Ronnie Mayo MD GFR/1.73 sq M.predicted among non-blacks MDRD (S/P/Bld) [Vol rate/Area] mL/min/{1.73_m2} Normal >60 [facility] Comment on above: Result Comment: These results are not intended for [...] following therapy that affects renal tubular secretion. Performed By: #### H CG, TROPI BMP, CDP #### [facility] [address] [place], [place] [id number] Botany Teacher: Ronnie Mayo MD Glucose [Mass/Vol] 104 mg/dL High 70-99 [facility] Comment on above: Performed By: #### H CG, TROPI BMP, CDP #### [facility] [address] [place], [place] [id number] Botany Teacher: Ronnie Mayo MD Potassium [Moles/Vol] 4.4 mmol/L Normal 3.7-5.3 [facility] Comment on above: Performed By: #### H KAREN DYKES BMP, CDP #### [facility] [address] [place], [place] [phone] Botany Teacher: Ronnie Mayo MD Sodium [Moles/Vol] 138 mmol/L Normal 135-144 [facility] Comment on above: Performed By: #### H KAREN DYKES BMP, CDP #### [facility] [address] [place], [place] [phone] Botany Teacher: Ronnie Mayo MD Urea nitrogen [Mass/Vol] 11 mg/dL Normal 6-20 [facility] Comment on above: Performed By: #### H KAREN DYKES BMP, CDP #### [facility] [address] [place] [address] Botany Teacher: Ronnie Mayo MD Brain Natri. Peptideon 11-15 Pro-BNP <36 Normal <300 [facility] Comment on above: Result Comment: An a ge-independent cutoff point of 300 pg/ml has a 98% negative predictive value excluding acute heart failure. Performed By: #### [employer] ####[facility] [id number] [place] [address] Lab Director: Ronnie Mayo MD Brain Natriuretic Peptideon 11-15-2024 Natriuretic peptide B (Bld) [Mass/Vol] pg/mL NINF - 300 pg/mL [facility] Comment on above: An age-independent c utoff point of 300 pg/ml has a 98% negative predictive value excluding acute heart failure. [facility] CBC with Auto Differentialon 11-15-2024 Basophils (Bld) [#/Vol] 0.02 10*3/uL [facility] Basophils/100 WBC (Bld) 0 % 0 - 2 % [facility] Eosinophils (Bld) [#/Vol] 0.12 10*3/uL [facility] Eosinophils/100 WBC (Bld) 2 % 0 - 5 % [facility] Erythrocyte distribution width (RBC) [Ratio] 12.3 % 12.1 - 15.2 % [facility] Hematocrit (Bld) [Volume fraction] 41 % 36.0 - 46.0 % [facility] Hemoglobin (Bld) [Mass/Vol] 14.1 g/dL 12.0 - 16.0 g/dL [facility] Immature granulocytes (Bld) [#/Vol] 0 10*3/uL [facility] Immature granulocytes/100 WBC (Bld) 0 % 0 - 5 % [facility] Interpretation and review of laboratory results Abnormal [facility] Lymphocytes/100 WBC (Bld) 44 % High 15 - 40 % [facility] Lymphocytes/100 WBC (Bld) 3.04 % [facility] MCH (RBC) [Entitic mass] 31.4 pg 26.0 - 34.0 pg [facility] MCHC (RBC) [Mass/Vol] 34.4 g/dL 31.0 - 37.0 g/dL [facility] MCV (RBC) [Entitic vol] 91.3 fL 80.0 - 100.0 fL [facility] Monocytes/100 WBC (Bld) 10 % High 4 - 8 % [facility] Monocytes/100 WBC (Bld) 0.72 % [facility] Neutrophils/100 WBC (Bld) 44 % Low 47 - 75 % [facility] Platelet mean volume (Bld) [Entitic vol] 9 fL 6.0 - 12.0 fL [facility] Platelets (Bld) [#/Vol] 235 10*3/uL [facility] RBC (Bld) [#/Vol] 4.49 10*6/uL 4.00 - 5.2 0 m/uL [facility] Segmented neutrophils/100 WBC (Bld) 3.05 % [facility] WBC other (Bld) [#/Vol] 7 [facility] CBC with Diffon 11-15-2024 Abs. Basophil 0.02 k/uL Normal 0.00-0.20 [facility] Comment on above: Performed By: #### H JANIA, KAREN BMP, CDP #### [facility] [address] [place] [phone] Botany Teacher: Ronnie Mayo MD Abs.Imm.Granulocyte 0.00 k/uL Normal 0.00-0.30 [facility] Comment on above: Performed By: #### H JANIA, KAREN, BMP, CDP #### [facility] [address] [place] [address] Botany Teacher: Ronnie Mayo MD Abs.Neutrophil (Seg) 3.05 k/uL Normal 2.5-7.0 [facility] Comment on above: Performed By: #### H KAREN DYKES BMP, CDP #### [facility] [address] [place] [address] Botany Teacher: Ronnie Mayo MD Basophils/100 WBC (Bld) 0 % Normal 0-2 [facility] Comment on above: Performed By: #### H KAREN DYKES BMP, CDP #### [facility] [address] [phone] Botany Teacher: Ronnie Mayo MD Eosinophils (Bld) [#/Vol] 0.12 10*3/uL Normal 0.00-0.40 [facility] Comment on above: Performed By: #### H KAREN DYKES BMP, CDP #### [facility] [address] [place] [address] Botany Teacher: Ronnie Mayo MD Eosinophils/100 WBC (Bld) 2 % Normal 0-5 [facility] Comment on above: Performed By: #### H JANIA, KAREN, BMP, CDP #### [facility] [address] [place] [address] Botany Teacher: Ronnie Mayo MD Erythrocyte distribution width (RBC) [Ratio] 12.3 % Normal 12.1-15.2 [facility] Comment on above: Performed By: #### H CG, TROPThomas BMP, CDP #### [facility] [address] [place] [address] Botany Teacher: Ronnie Mayo MD Hematocrit (Bld) [Volume fraction] 41.0 % Normal 36.0-46.0 [facility] Comment on above: Performed By: #### H CG, KAREN BMP, CDP #### [facility] [address] [place] [phone] Botany Teacher: Ronnie Mayo MD Hemoglobin (Bld) [Mass/Vol] 14.1 g/dL Normal 12.0-16.0 [facility] Comment on above: Performed By: #### H KAREN DYKES BMP, CDP #### [facility] [address] [place] [address] Botany Teacher: Ronnie Mayo MD Immature granulocytes/100 WBC (Bld) 0 % Normal 0-5 [facility] Comment on above: Performed By: #### H KAREN DYKES BMP, CDP #### [facility] [address] [place] [phone] Botany Teacher: Ronnie Mayo MD Lymphocytes (Bld) [#/Vol] 3.04 10*3/uL Normal 1.00-4.80 [facility] Comment on above: Performed By: #### H CGKAREN BMP, CDP #### [facility] [address] [phone] Botany Teacher: Ronnie Mayo MD Lymphocytes/100 WBC (Bld) 44 % High 15-40 [facility] Comment on above: Performed By: #### H CG, KAREN BMP, CDP #### [facility] [address] [place] [phone] Botany Teacher: Ronnie Mayo MD MCH (RBC) [Entitic mass] 31.4 pg Normal 26.0-34.0 [facility] Comment on above: Performed By: #### H KAREN DYKES BMP, CDP #### [facility] [address] [place] [address] Botany Teacher: Ronnie Mayo MD MCHC (RBC) [Mass/Vol] 34.4 g/dL Normal 31.0-37.0 [facility] Comment on above: Performed By: #### H KAREN DYKES BMP, CDP #### [facility] [address] [place] [phone] Botany Teacher: Ronnie Mayo MD MCV (RBC) [Entitic vol] 91.3 fL Normal 80.0-100.0 [facility] Comment on above: Performed By: #### H KAREN DYKES BMP, CDP #### [facility] [address] [place] [phone] Botany Teacher: Ronnie Mayo MD Monocytes (Bld) [#/Vol] 0.72 10*3/uL Normal 0.00-1.00 [facility] Comment on above: Performed By: #### H KAREN DYKES BMP, CDP #### [facility] [address] [place] [address] Botany Teacher: Ronnie Mayo MD Monocytes/100 WBC (Bld) 10 % High 4-8 [facility] Comment on above: Performed By: #### H KAREN DYKES BMP, CDP #### [facility] [address] [place] [address] Botany Teacher: Ronnie Mayo MD Neutrophil (Seg) 44 % Low 47-75 [facility] Comment on above: Performed By: #### H KAREN DYKES BMP, CDP #### [facility] [address] [place] [address] Botany Teacher: Ronnie Mayo MD Platelet mean volume (Bld) [Entitic vol] 9.0 fL Normal 6.0-12.0 [facility] Comment on above: Performed By: #### H CG, TROPI, BMP, CDP #### [facility] [address] [place], [place] [phone] Botany Teacher: Ronnie Mayo MD Platelets (Bld) [#/Vol] 235 10*3/uL Normal 140-450 [facility] Comment on above: Performed By: #### H CG, TROPI, BMP, CDP #### [facility] [address] [place] [address] [phone] Botany Teacher: Ronnie Mayo MD RBC (Bld) [#/Vol] 4.49 10*6/uL Normal 4.00-5.20 [facility] Comment on above: Performed By: #### H CG, TROPI, BMP, CDP #### [facility] [address] [place] [address] [phone] Botany Teacher: Ronnie Mayo MD WBC (Bld) [#/Vol] 7.0 10*3/uL Normal 3.5-11.0 [facility] Comment on above: Performed By: #### H CG, BRUCEI, BMP, CDP #### [facility] [address] [place] [address] [phone] Botany Teacher: Ronnie Mayo MD CT HEAD WO CONTRASTon 2024 CT HEAD WO CONTRAST NONCONTRAST HEAD CT COMPARISON: Head CT 01/22/2021. [...] age appropriate. IMPRESSION: No acute intracranial abnormality. Interpreted by: Guido Gregorio MD Signed by: Guido Gregorio MD 11/15/24 Final result Normal [facility] CT Head WO contraston 2024 No acute intracranial abnormality. [facility] NONCONTRAST HEAD CT COMPARISON: Head CT 01/22/2021. [...] Ventricles and cisternal spaces are age appropriate. [facility] Guido Gregorio M D - 11/15/[address] COMPARISON: Head [...] age appropriate. IMPRESSION: No acute intracranial abnormality. [facility] Radiology Study observation (narrative) [facility] CT Head WO contrastOrdered B y: Guido Gregorio on 11-15-2024 [facility] Work Phone: CTA HEAD NECK W CONTRASTon 0 11-15-2024 CTA HEAD NECK W CONTRAST EXAM: CTA HEAD NECK W CONTRAST STROKE [...] involving the neck or intracranial arterial vasculature. Interpreted by: Patrizia Ramos DO Signed by: Patrizia Ramos DO 11/15/24 Final result Normal [facility] CTA Head vessels and Neck ve ssels W contrast Altagracia 11-15-2024 No hemodynamically significant stenosis, large vessel occlusion or aneurysm involving the neck or intracranial arterial vasculature. PN RIS CONSOLIDATED EXAM: CTA HEAD NECK W CONTRAST STROKE [...] Visualized portion of the lungs are clear. [facility] RIS CONSOLIDATED Patrizia Ramos, DO - 11/15/2024 EXAM: CTA [...] involving the neck or intracranial arterial vasculature. [facility] Radiology Study observation (narrative) [facility] CTA Head vessels and Neck ve ssels W contrast IVOrdered By: Patrizia Pool on 11-15-2024 [facility] Work Phone: D-Dimer Teston 11-15-2024 D-Dimer Test 0.32 ug/mL FEU Normal 0.00-0.59 [facility] Comment on above: Result Comment: When combined with a low clinical [...] more prevalent in patients with distal DVT. Performed By: #### D ANDIE ####[facility] [id number] [place] [address] lab Director: Ronnie Mayo MD D-Dimer, Quantitativeon Fibrin D-dimer FEU (PPP) [Mass/Vol] 0.32 [facility] Comment on above: When combined with [...] more prevalent in patients with distal DVT. [facility] EKG 12 LeadOrdered By: Garcia Burgos on 11-15-2024 Atrial Rate 66 BPM [facility] Work Phone: P Frankewing 88 degrees [facility] Work Phone: P-R Interval 126 ms [facility] Work Phone: Q-T Interval 416 ms [facility] Work Phone: QRS Duration 78 ms [facility] Work Phone: QTc Calculation (Bazett) 436 ms [facility] Work Phone: R Frankewing 27 degrees [facility] Work Phone: T Frankewing 46 degrees [facility] Work Phone: Ventricular Rate 66 BPM [employer] Work Phone: [facility] Work Phone: EKG 12 Leadon 11-15-2024 Normal sinus rhythm Normal [facility] Garcia Burgos MD - 11/15/2024 Normal sinus rhythm Normal ECG [facility] HCG Qualitative, Serumon HCG ( test) Ql Negative NEGATIVE [facility] Comment on above: Specimens with hCG l evels near the threshold of the test (25 mIU/mL) may give a negative or indeterminate result. In such cases, another test should be performed with a new specimen in 48-72 hours. If early is suspected clinically in this setting, correlation with quantitative serum b-hCG level is suggested. [employer] has confirmed the use of plasma for this test. This has not been cleared or approved by the U.S. Food and Drug Administration. The FDA has determined that such clearance is not necessary. [facility] HCG Screen, Bloodon 11-16-19 25 HCG Screen, Blood Negative Normal NEG [facility] Comment on above: Result Comment: Spec imens with hCG levels near the threshold of the test (25 mIU/mL) may give a negative or indeterminate result. In such cases, another test should be performed with a new specimen in 48-72 hours. If early is suspected clinically in this setting, correlation with quantitative serum b-hCG level is suggested. [facility] has confirmed the use of plasma for this test. This has not been cleared or approved by the U.S. Food and Drug Administration. The FDA has determined that such clearance is not necessary. Performed By: #### H CG, TROPI, BMP, CDP #### [facility] [address] [place] [address] Botany Teacher: Ronnie Mayo MD No Panel Informationon 11-15 [facility] Troponinon 11-15-2024 Troponin I.cardiac High sensitivity method [Mass/Vol] ng/L 0 - 14 ng/L [facility] Comment on above: High Sensitivity Tro ponin values cannot be compared with other Troponin methodologies. [facility] Troponin, High Sens <6 Normal 0-14 [facility] Comment on above: Result Comment: High Sensitivity Troponin values cannot be compared with other Troponin methodologies. Performed By: #### T ROPI ####[facility] [id number] [place] [address] Lab Director: Ronnie Mayo MD Troponin I.cardiac High sensitivity method [Mass/Vol] ng/L 0 - 14 ng/L [facility] Comment on above: High Sensitivity Tro ponin values cannot be compared with other Troponin methodologies. Troponin, High Sens <6 Normal 0-14 [facility] Comment on above: Result Comment: High Sensitivity Troponin values cannot be compared with other Troponin methodologies. Performed By: #### H CG, TROPI, BMP, CDP #### [facility] [address] [place] [address] Botany Teacher: Ronnie Mayo MD Follow-Upon 10-30-2024 Follow-Up [id number] Marizol Segovia 1980 F Date Provider Department Center 10/30/2024 SARAH ESTES SUPRI[facility] Family History Problem Relation Age of Onset Other Mother Diabetes Mother Mitral valve prolapse Mother Hypertension Mother Colon cancer Maternal Grandfather Heart attack Maternal Grandfather Brain Aneurysm Maternal Grandfather Family Status - Relation Status Age at Mother Maternal Grandfather Paternal Grandfather Level of Service:42880 [place] OFFICE/OUTPATIENT ESTABLISHED MOD MDM 30 MIN Normal [facility] Basic Metabolic Panelon 10-12 Anion gap [Moles/Vol] 13 mmol/L 9 - 17 mmol/L [facility] Calcium [Mass/Vol] 9.3 mg/dL 8.6 - 10. 4 mg/dL [facility] Chloride [Moles/Vol] 106 mmol/L 98 - 107 mmol/L [facility] CO2 [Moles/Vol] 20 mmol/L 20 - 31 mmol/L [facility] Creatinine [Mass/Vol] 0.8 mg/dL 0.5 - 0.9 mg/dL [facility] Est, Glom Filt Rate - PINF [facility] Comment on above: These results are not intended for use [...] following therapy that affects renal tubular secretion. Glucose [Mass/Vol] 125 mg/dL High 70 - 99 mg/dL [facility] Interpretation and review of laboratory results Abnormal [facility] Potassium [Moles/Vol] 4 mmol/L 3.7 - 5.3 mmol/L [facility] Sodium [Moles/Vol] 139 mmol/L 135 - 144 mmol/L [facility] Urea nitrogen [Mass/Vol] 9 mg/dL 6 - 20 mg/dL [facility] Basic Metabolic Profon 10-29 Anion gap [Moles/Vol] 13 mmol/L Normal 9-17 [facility] Comment on above: Performed By: #### [employer], DIME, PT, TROPI, CDP, BMP #### [facility] [address] [place], [place] [phone] Botany Teacher: Ronnie Mayo MD Calcium [Mass/Vol] 9.3 mg/dL Normal 8.6-10.4 [facility] Comment on above: Performed By: #### [employer], DIME, PT, TROPI, CDP, BMP #### [facility] [address] [place], [place] [id number] Botany Teacher: Ronnie Mayo MD Chloride [Moles/Vol] 106 mmol/L Normal 98-107 [facility] Comment on above: Performed By: #### [employer], DIME, PT, TROPI, CDP, BMP #### [facility] [address] [place] [address] Botany Teacher: Ronnie Mayo MD CO2 [Moles/Vol] 20 mmol/L Normal 20-31 [facility] Comment on above: Performed By: #### [employer], DIME, PT, TROPI, CDP, BMP #### [facility] [address] [place] [address] Botany Teacher: Ronnie Mayo MD Creatinine [Mass/Vol] 0.8 mg/dL Normal 0.5-0.9 [facility] Comment on above: Performed By: #### [employer], DIME, PT, TROPI, CDP, BMP #### [facility] [address] [place] [address] Botany Teacher: Ronnie Mayo MD GFR/1.73 sq M.predicted among non-blacks MDRD (S/P/Bld) [Vol rate/Area] mL/min/{1.73_m2} Normal >60 [facility] Comment on above: Result Comment: These results are not intended for [...] following therapy that affects renal tubular secretion. Performed By: #### [employer], DIME, PT, TROPI, CDP, BMP #### [facility] [address] [place], [place] [id number] Botany Teacher: Ronnie Mayo MD Glucose [Mass/Vol] 125 mg/dL High 70-99 [facility] Comment on above: Performed By: #### [employer], DIME, PT, TROPI, CDP, BMP #### [facility] [address] [place], [place] [phone] Botany Teacher: Ronnie Mayo MD Potassium [Moles/Vol] 4.0 mmol/L Normal 3.7-5.3 [facility] Comment on above: Performed By: #### [employer], DIME, PT, TROPI, CDP, BMP #### [facility] [address] [place] [address] Botany Teacher: Ronnie Mayo MD Sodium [Moles/Vol] 139 mmol/L Normal 135-144 [facility] Comment on above: Performed By: #### [employer], DIME, PT, TROPI, CDP, BMP #### [facility] [address] [place], [place] [id number] Botany Teacher: Ronnie Mayo MD Urea nitrogen [Mass/Vol] 9 mg/dL Normal 6-20 [facility] Comment on above: Performed By: #### [employer], DIME, PT, TROPI, CDP, BMP #### [facility] [address] [place], [place] [phone] Botany Teacher: Ronnie Mayo MD Brain Natri. Peptideon 10-29 Natriuretic peptide B (Bld) [Mass/Vol] 87 pg/mL Normal <300 [facility] Comment on above: Result Comment: An a ge-independent cutoff point of 300 pg/ml has a 98% negative predictive value excluding acute heart failure. Performed By: #### [employer], DIME, PT, TROPI, CDP, BMP #### [facility] [address] [place] [address] Botany Teacher: Ronnie Mayo MD Brain Natriuretic Peptideon 10-29-2024 Natriuretic peptide B (Bld) [Mass/Vol] 87 pg/mL NINF - 300 pg/mL [facility] Comment on above: An age-independent c utoff point of 300 pg/ml has a 98% negative predictive value excluding acute heart failure. CBC with Auto Differentialon 10-29-2024 Basophils (Bld) [#/Vol] 0.01 10*3/uL [facility] Basophils/100 WBC (Bld) 0 % 0 - 2 % [facility] Eosinophils (Bld) [#/Vol] 0.08 10*3/uL [facility] Eosinophils/100 WBC (Bld) 1 % 0 - 5 % [facility] Erythrocyte distribution width (RBC) [Ratio] 11.8 % Low 12.1 - 15.2 % [facility] Hematocrit (Bld) [Volume fraction] 40.8 % 36.0 - 46.0 % [facility] Hemoglobin (Bld) [Mass/Vol] 14.1 g/dL 12.0 - 16.0 g/dL [facility] Immature granulocytes (Bld) [#/Vol] 0.01 10*3/uL [facility] Immature granulocytes/100 WBC (Bld) 0 % 0 - 5 % [facility] Interpretation and review of laboratory results Abnormal [facility] Lymphocytes/100 WBC (Bld) 40 % 15 - 40 % [facility] Lymphocytes/100 WBC (Bld) 3.15 % [facility] MCH (RBC) [Entitic mass] 31.5 pg 26.0 - 34.0 pg [facility] MCHC (RBC) [Mass/Vol] 34.6 g/dL 31.0 - 37.0 g/dL [facility] MCV (RBC) [Entitic vol] 91.1 fL 80.0 - 100.0 fL [facility] Monocytes/100 WBC (Bld) 8 % 4 - 8 % [facility] Monocytes/100 WBC (Bld) 0.6 % [facility] Neutrophils/100 WBC (Bld) 51 % 47 - 75 % [facility] Platelet mean volume (Bld) [Entitic vol] 8.9 fL 6.0 - 12.0 fL [facility] Platelets (Bld) [#/Vol] 270 10*3/uL [facility] RBC (Bld) [#/Vol] 4.48 10*6/uL 4.00 - 5.2 0 m/uL [facility] Segmented neutrophils/100 WBC (Bld) 4.04 % [facility] WBC other (Bld) [#/Vol] 7.9 [facility] CBC with Diffon 10-29-2024 Abs. Basophil 0.01 k/uL Normal 0.00-0.20 [facility] Comment on above: Performed By: #### [employer], DIME, PT, TROPI, CDP, BMP #### [facility] [address] [place] [address] Botany Teacher: Ronnie Mayo MD Abs.Imm.Granulocyte 0.01 k/uL Normal 0.00-0.30 [facility] Comment on above: Performed By: #### [employer], DIME, PT, TROPI, CDP, BMP #### [facility] [address] [place] [address] Botany Teacher: Ronnie Mayo MD Abs.Neutrophil (Seg) 4.04 k/uL Normal 2.5-7.0 [facility] Comment on above: Performed By: #### [employer], DIME, PT, TROPI, CDP, BMP #### [facility] [address] [place] [address] Botany Teacher: Ronnie Mayo MD Basophils/100 WBC (Bld) 0 % Normal 0-2 [facility] Comment on above: Performed By: #### [employer], DIME, PT, TROPI, CDP, BMP #### [facility] [address] [place] [address] Botany Teacher: Ronnie Mayo MD Eosinophils (Bld) [#/Vol] 0.08 10*3/uL Normal 0.00-0.40 [facility] Comment on above: Performed By: #### [employer], DIME, PT, TROPI, CDP, BMP #### [facility] [address] [place] [id number] Botany Teacher: Ronnie Mayo MD Eosinophils/100 WBC (Bld) 1 % Normal 0-5 [facility] Comment on above: Performed By: #### [employer], DIME, PT, TROPI, CDP, BMP #### [facility] [address] [place] [address] Botany Teacher: Ronnie Mayo MD Erythrocyte distribution width (RBC) [Ratio] 11.8 % Low 12.1-15.2 [facility] Comment on above: Performed By: #### [employer], DIME, PT, TROPI, CDP, BMP #### [facility] [address] [place] [phone] Botany Teacher: Ronnie Mayo MD Hematocrit (Bld) [Volume fraction] 40.8 % Normal 36.0-46.0 [facility] Comment on above: Performed By: #### [employer], DIME, PT, TROPI, CDP, BMP #### [facility] [address] [place] [phone] Botany Teacher: Ronnie Mayo MD Hemoglobin (Bld) [Mass/Vol] 14.1 g/dL Normal 12.0-16.0 [facility] Comment on above: Performed By: #### [employer], DIME, PT, TROPI, CDP, BMP #### [facility] [address] [place] [address] Botany Teacher: Ronnie Mayo MD Immature granulocytes/100 WBC (Bld) 0 % Normal 0-5 [facility] Comment on above: Performed By: #### [employer], DIME, PT, TROPI, CDP, BMP #### [facility] [address] [place] [address] Botany Teacher: Ronnie Mayo MD Lymphocytes (Bld) [#/Vol] 3.15 10*3/uL Normal 1.00-4.80 [facility] Comment on above: Performed By: #### [employer], DIME, PT, TROPI, CDP, BMP #### [facility] [address] [place] [address] Botany Teacher: Ronnie Mayo MD Lymphocytes/100 WBC (Bld) 40 % Normal 15-40 [facility] Comment on above: Performed By: #### [employer], DIME, PT, TROPI, CDP, BMP #### [facility] [address] [place] [phone] Botany Teacher: Ronnie Mayo MD MCH (RBC) [Entitic mass] 31.5 pg Normal 26.0-34.0 [facility] Comment on above: Performed By: #### [employer], DIME, PT, TROPI, CDP, BMP #### [facility] [address] [place] [address] Botany Teacher: Ronnie Mayo MD MCHC (RBC) [Mass/Vol] 34.6 g/dL Normal 31.0-37.0 [facility] Comment on above: Performed By: #### [employer], DIME, PT, TROPI, CDP, BMP #### [facility] [address] [place] [phone] Botany Teacher: Ronnie Mayo MD MCV (RBC) [Entitic vol] 91.1 fL Normal 80.0-100.0 [facility] Comment on above: Performed By: #### [employer], DIME, PT, TROPI, CDP, BMP #### [facility] [address] [place] [address] Botany Teacher: Ronnie Mayo MD Monocytes (Bld) [#/Vol] 0.60 10*3/uL Normal 0.00-1.00 [facility] Comment on above: Performed By: #### [employer], DIME, PT, TROPI, CDP, BMP #### [facility] [address] [place] [address] Botany Teacher: Ronnie Mayo MD Monocytes/100 WBC (Bld) 8 % Normal 4-8 [facility] Comment on above: Performed By: #### [employer], DIME, PT, TROPI, CDP, BMP #### [facility] [address] [place] [address] Botany Teacher: Ronnie Mayo MD Neutrophil (Seg) 51 % Normal 47-75 [facility] Comment on above: Performed By: #### [employer], DIME, PT, TROPI, CDP, BMP #### [facility] [address] [place] [address] Botany Teacher: Ronnie Mayo MD Platelet mean volume (Bld) [Entitic vol] 8.9 fL Normal 6.0-12.0 [facility] Comment on above: Performed By: #### [employer], DIME, PT, TROPI, CDP, BMP #### [facility] [address] [place] [address] Botany Teacher: Ronnie Mayo MD Platelets (Bld) [#/Vol] 270 10*3/uL Normal 140-450 [facility] Comment on above: Performed By: #### [employer], DIME, PT, TROPI, CDP, BMP #### [facility] [address] [place] [address] Botany Teacher: Ronnie Mayo MD RBC (Bld) [#/Vol] 4.48 10*6/uL Normal 4.00-5.20 [facility] Comment on above: Performed By: #### [employer], DIME, PT, TROPI, CDP, BMP #### [facility] [address] [place] [address] Botany Teacher: Ronnie Mayo MD WBC (Bld) [#/Vol] 7.9 10*3/uL Normal 3.5-11.0 [facility] Comment on above: Performed By: #### [employer], DIME, PT, TROPI, CDP, BMP #### [facility] [address] [place] [address] Botany Teacher: Ronnie Mayo MD D-Dimer Teston 10-29-2024 D-Dimer Test 0.28 ug/mL FEU Normal 0.00-0.59 [facility] Comment on above: Result Comment: When combined with a low clinical [...] more prevalent in patients with distal DVT. Performed By: #### [employer], DIME, PT, TROPI, CDP, BMP ####[facility] [id number] [place] [address] Lab Director: Ronnie Mayo MD D-Dimer, Quantitativeon 05- Fibrin D-dimer FEU (PPP) [Mass/Vol] 0.28 [facility] Comment on above: When combined with [...] more prevalent in patients with distal DVT. [facility] HCG, Quanton 10-29-2024 HCG, Quant <0.2 Normal <5 [facility] Comment on above: Result Comment: Non-preg premeno <=5 Postmeno <=8 Male <=3 If HCG results do not concur with clinical observations, additional testing to confirm results is recommended. Performed By: #### B HCG ####[facility] [id number] [place] [address] lab Director: Ronnie Mayo MD HCG, Quantitative, on 10-29-2024 HCG.beta subunit Qn NINF [facility] Comment on above: Non-preg premeno <=5 Postmeno <=8 Male <=3 If HCG results do not concur with clinical observations, additional testing to confirm results is recommended. [facility] No Panel Informationon 10-29 [facility] PTon 10-29-2024 INR Coag (PPP) [Relative time] 0.9 {INR} Normal [facility] Comment on above: Result Comment: Therapeutic Range: Moderate Anticoagulant Intensity: INR = 2.0-3.0 High Anticoagulant Intensity: INR = 2.5-3.5 Performed By: #### [employer], DIME, PT, TROPI, CDP, BMP ####[facility] [id number] [place] [address] lab Director: Ronnie Mayo MD PT Coag (PPP) [Time] 12.5 s Normal 11.5-14.2 [facility] Comment on above: Performed By: #### [employer], DIME, PT, TROPI, CDP, BMP ####[facility] [id number] [place] [address] lab Director: Ronnie Mayo MD Portable XR Chest AP single viewon 10-29-2024 1. No acute cardiopulmonary disease. 2. Right pericardial cyst. [facility] RIS CONSOLIDATED EXAM: XR CHEST DIPTI BLE HISTORY: chest pain COMPARISON: 12/16/2023. Prior chest CT 09/04/2021. TECHNIQUE: AP portable. FINDINGS: Right pericardial cyst, unchanged. Pulmonary vascularity is within normal limits. The lungs and costophrenic angles are clear. [facility] RIS CONSOLIDATED Mikhail Juárez MD - 10/29/2024 EXAM: XR CHEST PORTABLE HISTORY: chest pain COMPARISON: 12/16/2023. Prior chest CT 09/04/2021. TECHNIQUE: AP portable. FINDINGS: Right pericardial cyst, unchanged. Pulmonary vascularity is within normal limits. The lungs and costophrenic angles are clear. IMPRESSION: 1. No acute cardiopulmonary disease. 2. Right pericardial cyst. [facility] Radiology Study observation (narrative) [facility] Portable XR Chest AP single viewOrdered By: Mikhail Juárez on 10-29-2024 [facility] Work Phone: [employer] 05-18-2025 INR Coag (PPP) [Relative time] 0.9 {INR} [facility] Comment on above: Therapeutic Range: Moderate Anticoagulant Intensity: INR = 2.0-3.0 High Anticoagulant Intensity: INR = 2.5-3.5 PT Coag (PPP) [Time] 12.5 s [facility] Troponinon 10-29-2024 Troponin, High Sens <6 Normal 0-14 [facility] Comment on above: Result Comment: High Sensitivity Troponin values cannot be compared with other Troponin methodologies. Performed By: #### T ROPI ####[facility] [id number] [place] [address] lab Director: Ronnie Mayo MD Troponin I.cardiac High sensitivity method [Mass/Vol] ng/L 0 - 14 ng/L [facility] Comment on above: High Sensitivity Tro ponin values cannot be compared with other Troponin methodologies. Troponin, High Sens <6 Normal 014 [facility] Comment on above: Result Comment: High Sensitivity Troponin values cannot be compared with other Troponin methodologies. Performed By: #### [employer], DIME, PT, TROPI, CDP, BMP ####[facility] [id number] [place], [place] [id number] lab Director: Ronnie Mayo MD Troponin One timeon 10-30-19 Troponin I.cardiac High sensitivity method [Mass/Vol] ng/L 0 - 14 ng/L [facility] Comment on above: High Sensitivity Tro ponin values cannot be compared with other Troponin methodologies. [facility] XR CHEST PORTABLEon 10-30-19 XR CHEST PORTABLE EXAM: XR CHEST DIPTI BLE HISTORY: chest pain COMPARISON: 12/16/2023. Prior chest CT 09/04/2021. TECHNIQUE: AP portable. FINDINGS: Right pericardial cyst, unchanged. Pulmonary vascularity is within normal limits. The lungs and costophrenic angles are clear. IMPRESSION: 1. No acute cardiopulmonary disease. 2. Right pericardial cyst. Interpreted by: Mikhail Juárez MD Signed by: Mikhail Juárez MD 10/29/24 Final result Normal [facility] HPon 10-20-2024 HP H&P reviewed. The patient was examined and there are no changes to the H&P. [facility] NURSNOTEon 10-20-2024 NURSNOTE RN educated pt on d/ c instructions. This included: site care, limited physical activity, resume normal diet, future appointments, medications, and moderate sedation instructions. RN educated pt on when to notify physician and when to go to the hospital. RN provided pt with arm sling and educated pt on importance of not using arm for 24 hours for radial sites. RN encouraged pt to voice any questions or concerns, and answered any questions or concerns if pt verbalized. Pt was wheeled off of unit with all of belongings. [facility] Consulton 10-19-2024 Consult [id number] Marizol Segovia 1980 F Date Provider Department Center 10/19/[id number] [facility] Family History Problem Relation Age of Onset Other Mother Diabetes Mother Mitral valve prolapse Mother Hypertension Mother Colon cancer Maternal Grandfather Heart attack Maternal Grandfather Brain Aneurysm Maternal Grandfather Family Status - Relation Status Age at Mother Maternal Grandfather Paternal Grandfather Level of Service:43497 [place] OFFICE/OP CONSLTJ NEW/EST PT MOD MDM 40 MINUTES Reason for Visit and Comments: Consult [484] - Pericardial cyst [facility] 36on 10-03-2024 [address] and XR chest done at [facility]. Reports are scanned in media. Call placed to radiology at [facility] to request Images they stated that they will send over a Disc information provided to receive disc. [facility] HPon 09-29-2024 [facility] Cardiology [facility] Subjective Nahum Segovia is a 43 y.o. year old female patient being seen to establish care. Ref from Dr. Price for abnormal echo performed this week at [facility]. Says she smokes 1/2 PPD, and 15 [...] as a new patient referred from Dr. Price's office because of abnormal echocardiogram. She is [...] normal. Behavior: Behavior (more content not included)... Normal [facility] Office Visiton 09-29-2024 Follow-up visit [id number] Marizol Segovia 1980 F Date Provider Department Center 09/29/2024 SARAH ESTES Family History Problem Relation Age of Onset Other Mother Diabetes Mother Mitral valve prolapse Mother Hypertension Mother Colon cancer Maternal Grandfather Heart attack Maternal Grandfather Brain Aneurysm Maternal Grandfather Family Status - Relation Status Age at Mother Maternal Grandfather Paternal Grandfather Level of Service:35868 [place] OFFICE/OP CONSLTJ NEW/EST PT HIGH MDM 55 MINUTES Normal [facility] CT chest w conon 08-29-2024 CT chest w con [facility] [place] [address] [place] [address] CT Scan Report Signed Patient: Nahum Guzman MR# : [id number] : 1980 Acct:[id number] Age/Sex: 43 / F ADM Date: 08/29/24 Loc: CT Room: Type: [facility] Attending Dr: John Price MD Copies to: John Price MD Ordering Provider: John Price MD Date of Service: 08/29/24 CT/CT chest [...] Rosa Jones M.D.08/29/2024 10:23 AM Dictation Location: RADIO--23 Transcribed By: LISA 08/29/24 1023 Dictated By: Rosa Jones MD 08/29/24 1001 Signed By: 08/29/24 1023 Normal [facility] X-ray reportOrdered By: Duke Beckwith on 08-11-2024 Study report [facility] Main [place] [id number] XRay Report Signed Patient: Nahum Guzman MR#: [id number] : 1980 Acct:[id number] Age/Sex: 43 / F ADM Date: 5 Loc: [place] Room: Type: [facility] Attending Dr: Sergo Hummel - [facility] Copies to: Sergo Hummel DO~ Ordering Provider: [...] Beckwith Jr., D.OManuel08/11/2024 3:58 PM Dictation Location: [facility]--22 Transcribed By: LISA 08/11/24 1558 Dictated By: Mina Beckwith Jr, DO 08/11/24 1557 Signed By: 08/11/24 1558 [facility] XR chest 2V*on 08-11-2024 XR chest 2V* [facility] Main [address] [address] XRay Report Signed Patient: Nahum Guzman MR# : [id number] : 1980 Acct:[id number] Age/Sex: 43 / F ADM Date: 08/11/24 Loc: [place] Room: Type: [facility] Attending Dr: Sergo Hummel - [facility] Copies to: Sergo Hummel DO Ordering Provider: [...] Beckwith Jr., D.O.08/11/2024 3:58 PM Dictation Location: [place] [address] Transcribed By: [facility] 08/11/24 1558 Dictated By: Mina Beckwith Jr, DO 08/11/24 1557 Signed By: 08/11/24 1558 Normal [facility] XR CHEST (2 VW)on 01-05-2024 XR CHEST (2 VW) EXAM: XR CHEST (2 VW ) HISTORY: Exposure to TB COMPARISON: CT chest, [place], 09/04/2021, chest x-ray 09/04/2021. IMPRESSION: FINDINGS/IMPRESSION: 1. 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 2. Normal-sized heart. 3. Lungs clear. 4. No tuberculous change/cavitation/conso lidation. Interpreted by: Rajat Kiran Jr., MD Signed by: Rajat Kiran Jr., MD 01/05/24 Final result Normal [facility] Orders Onlyon 07-01-2023 Orders Only [id number] Nahum Segovia 1980 F Date Provider Department Center 07/01/2023 [id number], HISTORICAL DCC ONC DCC No family history on file Normal [facility] BREAST IMAGING SECOND OPINIO N READINGon [...] ultrasound is recommended for further evaluation. Normal [facility] Chlamydia/GC DNA, Uron 03-30 Chlamydia Probe, Ur Negative Normal NEG [facility] Comment on above: Result Comment: CHLA [...] target. Performed By: #### U CGP #### [employer] [address] [place] [address] Botany Teacher: Bjorn Balderas MD Gonorrhea Probe, Ur Negative Normal [facility] Comment on above: Result Comment: NEIS [...] target. Performed By: #### U CGP #### [employer] [address] [address] Botany Teacher: Bjorn Balderas MD Chlamydia/GC DNA, TPon 03-01 Chlamydia Probe, TP Negative Normal [facility] Comment on above: Result Comment: CHLA [...] nucleic acid target. Performed By: #### C YTC #### [facility] [address] [id number] Botany Teacher: Bjorn Balderas MD Gonorrhea Probe, TP POSITIVE: NEISSERIA GONORRHOEAE DNA detected by nucleic acid amplification. Abnormal [facility] Comment on above: Result Comment: This [...] Department Performed By: #### C YTCGP #### [facility] [address] [place], [place] [id number] Botany Teacher: Bjorn Balderas MD Cult,Genitalon 03-01-2023 Cult,Genital Specimen Description .VAGINA Culture NORMAL URO-GENITAL YESSI NEISSERIA GONORRHOEAE LIGHT GROWTH Results reported to the appropriate Health Department NEGATIVE FOR GROUP B STREPTOCOCCI Report Status FINAL 03/01/2023 Normal [facility] Comment on above: Performed By: #### G EC #### [facility] [address] [place] [address] Botany Teacher: Bjorn Balderas MD [facility] [address] [place] [address] Botany Teacher: Ronnie Mayo MD Cytology Reporton 02-26-2023 Cytology report Cyto stain.thin prep Doc (Cvx/Vag) (NOTE) Path Number: [id number] DIAGNOSIS Imaged ThinPrep Pap - Cervical (1 monolayer slide): Specimen Adequacy: Satisfactory for evaluation. - Endocervical/transforma tion zone component present. Descriptive Diagnosis: Negative for intraepithelial lesion or malignancy. Comments: Specimen was screened at [facility], [address] [place] [address] [employer] Screener: CS Electronically Signed Out PARMINDER Jung(ASCP) /03/06/2023 Source of Specimen: A: Imaged ThinPrep Pap - Cervical (1 monolayer slide) HPV Reflex?................ 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 [address] [place] [address] Interpretation [place] [address] This Pap Test has been evaluated with [...] result. GYNECOLOGIC CYTOLOGY REPORT Patient Name: NAHUM SEGOVIA [facility] Rec: [id number] [facility] PATHOLOGISTS [facility] ANATOMIC PATHOLOGY [address] [place] [address]. [place], [place] [address] Normal [facility] CULTURE URINEon 09-21-2022 CULTURE URINE Culture Observations : LIGHT GROWTH OF MIXED GENITAL YESSI. NO POTENTIAL PATHOGENS SEEN. Normal [facility] Comment on above: Performed By: #### U RCX #### [facility] [address] [place] [address] Dr. Christopher Rivera UA RANDOM W/MICROSCOPICon BACTERIA TRACE Abnormal NONE SEEN [facility] Comment on above: Performed By: #### U AMIC #### [facility] [address] [place] [address] Dr. Christopher Rivera Bilirubin Ql (U) Negative Normal NEGATIVE [facility] Comment on above: Performed By: #### U AMIC #### [facility] [address] [place] [address] Dr. Christopher Rivera CAST NONE SEEN Normal NONE SEEN [facility] Comment on above: Performed By: #### U AMIC #### [facility] [address] [place] [address] Dr. Christopher Rivera Clarity (U) CLEAR Normal CLEAR [facility] Comment on above: Performed By: #### U AMIC #### [facility] [address] [place] [address] Dr. Christopher Rivera Color (U) LT. YELLOW Normal YELLOW [facility] Comment on above: Performed By: #### U AMIC #### [facility] [address] [place] [address] Dr. Christopher Rivera Crystals LM Nom (Urine sed) NONE SEEN Normal NONE SEEN [facility] Comment on above: Performed By: #### U AMIC #### [facility] [address] [place] [address] Dr. Christopher Rivera Epithelial cells LM Ql (Urine sed) FEW Abnormal NONE SEEN /RARE [facility] Comment on above: Performed By: #### U AMIC #### [facility] [address] [place] [address] Dr. Christopher Rivera Glucose Ql (U) Negative Normal NEGATIVE [facility] Comment on above: Performed By: #### U AMIC #### [facility] [address] [place] [address] Dr. Christopher Rivera Hemoglobin Ql (U) TRACE-INTACT Abnormal NEGATIVE [facility] Comment on above: Performed By: #### U AMIC #### [facility] [address] [place] [address] [address] Christopher Rivera Ketones Ql (U) Negative Normal NEGATIVE [facility] Comment on above: Performed By: #### U AMIC #### [facility] [address] [place] [address] Dr. Christopher Rivera LEUKOCYTES Negative Normal NEGATIVE [facility] Comment on above: Performed By: #### U AMIC #### [facility] [address] [place] [address] [address] Christopher Rivera MUCOUS NONE SEEN Normal NONE SEEN [facility] Comment on above: Performed By: #### U AMIC #### [facility] [address] [place] [address] Dr. Christopher Rivera Nitrite Ql (U) Negative Normal NEGATIVE [facility] Comment on above: Performed By: #### U AMIC #### [facility] [address] [place] [address] Dr. Christopher Rivera pH (U) 5.5 [pH] Normal 5-9 [facility] Comment on above: Performed By: #### U AMIC #### [facility] [address] [place] [address] Dr. Christopher Rivera RBC 0-2 Normal 0-2 [facility] Comment on above: Performed By: #### U AMIC #### [facility] [address] [place] [address] Dr. Christopher Rivera SPEC GRAVITY <=1.005 Abnormal 1.005-<=1.[address] [facility] Comment on above: Performed By: #### U AMIC #### [facility] [address] [place] [address] [address] Christopher Rivera UA PROTEIN Negative Normal NEGATIVE/ TRACE [facility] Comment on above: Performed By: #### U AMIC #### [facility] [address] [place] [address] [address] Christopher Rivera Urobilinogen Qn (U) 0.2 {Allyssa'U}/dL Normal 0.2 - 1. 0 [facility] Comment on above: Performed By: #### U AMIC #### [facility] [address] [place] [address] [address] Christopher Rivera WBC NONE SEEN Normal NONE SEEN [facility] Comment on above: Performed By: #### U AMIC #### [facility] [address] [place] [address] [address] Christopher Rivera US KIDNEYS BLADDERon 023 [...] and urinary bladder. Electronically authenticated by: LAURA SORIANO Date: 2022-09-01 10:51 Normal [facility] XR KUB 1 VIEWon 08-26-2022 XR [...] urinary tract calculi Electronically authenticated by: RONNIE LYLES Date: 2022-08-26 12:57 Normal [facility] Pathology Noteon 02-20-2022 Pathology Note [id number] CD:127 Normal [facility] Outside Colonoscopyon 2021 Outside Colonoscopy [id number] D:127 Normal [facility] Reminderson 02-19-2022 Reminders - From: Zeny Andujar LPN To: GSN - Clinical; Sent: 02/19/2022 12:49:40 EDT Show up: 01/19/2032 07:00:00 EDT Subject: colonoscopy recall Due Date/Time: 02/19/2032 07:00:00 EDT Reminder/Recall Patient is due for screening colonoscopy 02/19/2032. Normal [facility] PREG HCG QUALon 02-18-2022 , QUAL Negative Normal NEGATIVE [facility] Comment on above: Performed By: #### P REG #### [facility] [address] [place] [address] Dr. Christopher Rivera Lab Reportson 02-17-2022 Lab Reports [id number] D:127 Normal [facility] Covid-19 PCR (CVDTB)on SARS-CoV-2 (COVID-19) RNA SUNSHINE+probe Ql (Unsp spec) Not detected Normal NOT DETECTED [facility] Comment on above: Result Comment: This test is not yet approved or cleared by the [place] FDA. When there are no FDA-approved or cleared tests available, and other criteria are met, FDA can make tests available under an emergency access mechanism called an Emergency Use Authorization (EUA). The EUA for this test is supported by the [place] of Health and Human Service's (HHS's) declaration [...] consistent with SARS-CoV-2. Performed By: #### C [facility] #### [facility] [address] [place] [address] Dr. Christopher Rivera Consent for Procedure/Surger yon 01-22-2022 Consent for Procedure/Surgery [id number] D:127 Normal [facility] Ambulatory Visit Summaryon 0 01-21-2022 Ambulatory Visit Summary NAHUM SEGOVIA :1980 Visit Date:01/21/2022 Ambulatory Visit Instructions Your Diagnosis Bloody diarrhea Tobacco use Your Care Team Attending Physician - GROVER HUNTER, Gregg Craig Primary Care Physician - Josh HUNTER, John Referring Physician - John Price MD Procedures Performed Diagnostic laparoscopy (06/09/2016), Diagnostic [...] impingement syndrome Tobacco use Uterine leiomyoma Normal [facility] CBC with Auto Differentialon 09-04-2021 Absolute Eos # 0.05 [facility] th Absolute Lymph # 1.20 [facility] alth Absolute Deuel [facility] 0.86 [facility] Basophils (Bld) [#/Vol] 0 - 2 % [facility] Basophils Absolute [facility] Eosinophils/100 WBC (Bld) 1 % 0 - 5 % [facility] Hematocrit (Bld) [Volume fraction] 42.8 % 36 - 46 % [facility] Hemoglobin.gastroin testinal spec 1 Ql (Stl) 14.4 g/dL 12.0 - 16.0 g/dL [facility] Interpretation and review of laboratory results Abnormal [facility] Lymphocytes/100 WBC (Bld) 25 % 15 - 40 % [facility] MCH (RBC) [Entitic mass] 31.5 pg 26 - 34 pg [facility] MCHC (RBC) [Mass/Vol] 33.7 g/dL 31 - 37 g/dL [facility] MCV (RBC) [Entitic vol] 93.5 fL 80 - 100 fL [facility] Monocytes/100 WBC (Bld) 18 % High 4 - 8 % [facility] Morphology Vincent (Bld) [Interp] Manual Differential Performed [facility] Platelet distribution width (Bld) [Ratio] 13.3 % 12.1 - 15.2 % [facility] Platelets (Bld) [#/Vol] 227 10*3/uL [facility] RBC (Bld) [#/Vol] 4.57 10*6/uL 4.0 - 5.2 m/uL [facility] Segmented neutrophils/100 WBC (Bld) 56 % 47 - 75 % [facility] Segs Absolute 2.69 [facility] WBC (Bld) [#/Vol] 4.8 10*3/uL [facility] COVID-19, Rapidon 09-04-2021 SARS-CoV-2 (COVID-19) RNA SUNSHINE+probe Ql (Unsp spec) Not detected Not Detected [facility] Comment on above: Rapid NAAT: The specimen [...] management decisions. Fact sheet for Healthcare Providers: https://www.fda.gov/media/348770/download Fact sheet for Patients: https://www.fda.gov/media/980198/download Methodology: Isothermal Nucleic Acid Amplification Specimen Description .NASOPHARYNGEAL SWAB [facility] [employer] Comprehensive Metabolic Pane cristina 09-04-2021 Albumin [Mass/Vol] 4.2 g/dL 3.5 - 5.2 g/dL [facility] [employer] ALP (Bld) [Catalytic activity/Vol] 87 U/L 35 - 104 U/L [facility] [employer] ALT [Catalytic activity/Vol] 17 U/L 5 - 33 U/L [facility] [employer] Anion gap [Moles/Vol] 14 mmol/L 9 - 17 mmol/L [facility] [employer] AST [Catalytic activity/Vol] 17 U/L <32 [facility] [employer] Bilirubin [Mass/Vol] 0.51 mg/dL 0.30 - 1.20 mg/dL [facility] Calcium [Mass/Vol] 9.0 mg/dL 8.6 - 10. 4 mg/dL [facility] Chloride [Moles/Vol] 105 mmol/L 98 - 107 mmol/L [facility] [employer] CO2 [Moles/Vol] 18 mmol/L Low 20 - 31 mmol/L [facility] Creatinine [Mass/Vol] 0.64 mg/dL 0.50 - 0.90 mg/dL [facility] Free PSA/Total PSA [Mass fraction] 7.4 g/dL 6.4 - 8.3 g/dL [facility] [employer] GFR >60 >60 mL/min [facility] [employer] GFR Non- >60 >60 mL/min [employer] GFR/1.73 sq M.predicted MDRD (S/P/Bld) [Vol rate/Area] [facility] Comment on above: Average GFR for 40-4 9 years old: 99 mL/min/1.73sq m Chronic Kidney Disease: <60 mL/min/1.73sq m Kidney failure: <15 mL/min/1.73sq m eGFR calculated using average adult body mass. Additional eGFR calculator available at: http://www.Duroline/multiple_crcl_2012.htm Glucose [Mass/Vol] 105 mg/dL High 70 - 99 mg/dL [facility] Interpretation and review of laboratory results Abnormal [facility] Potassium [Moles/Vol] 4.0 mmol/L 3.7 - 5.3 mmol/L [facility] Sodium [Moles/Vol] 137 mmol/L 135 - 144 mmol/L [facility] Urea nitrogen (BldV) [Mass/Vol] 9 mg/dL 6 - 20 mg/dL [facility] Urea nitrogen/Creatinine (Bld) [Mass ratio] 14 [facility] D-Dimer, Quantitativeon 08-13 D-Dimer, Quant 0.34 [facility] Comment on above: When combined with [...] more prevalent in patients with distal DVT. [facility] EKG Rhythm Stripon H.MontanezRAdebayo [facility] Troponinon 09-04-2021 Troponin, High Sensitivity <6 0 - 14 ng/L [facility] Comment on above: High Sensitivity Troponin values cannot be compared with other Troponin methodologies. Patients with high levels of Biotin oral intake (i.e >5mg/day) may have falsely decreased Troponin levels. Samples collected within 8 hours of biotin intake may require additional information for diagnosis. [facility] XR CHEST PORTABLEon 09-05-19 No acute disease. [facility] EXAMINATION: XR CHES T PORTABLE HISTORY: Reason for exam:->shortness of breath, left shoulder pain COMPARISON: 09/03/2021 TECHNIQUE: Portable AP upright FINDINGS: LUNGS: No significant pulmonary parenchymal abnormalities. Hyperinflation VASCULATURE: No increased pulmonary vasculature. PLEURA: No pneumothorax, effusion, or pleural thickening. CARDIAC: No cardiomegaly or cardiac silhouette abnormality. MEDIASTINUM: No visible mass or adenopathy. BONES: No fracture or visible bone lesion. OTHER: Negative. [facility] Ronnie Lyles MD - 09/04/2021 EXAMINATION: XR CHEST PORTABLE [...] lesion. OTHER: Negative. IMPRESSION: No acute disease. [employer] Work Phone: Radiology Study observation (narrative) [employer] Work Phone: XR CHEST PORTABLEOrdered By: Ronnie Lyles on 09-04-2021 [employer] [facility] Basic Metabolic Panelon 08-13 Anion gap [Moles/Vol] 13 mmol/L 9 - 17 mmol/L [employer] Calcium [Mass/Vol] 9.1 mg/dL 8.6 - 10. 4 mg/dL [employer] [facility] Chloride [Moles/Vol] 103 mmol/L 98 - 107 mmol/L [employer] [facility] CO2 [Moles/Vol] 18 mmol/L Low 20 - 31 mmol/L [employer] [facility] Creatinine [Mass/Vol] 0.64 mg/dL 0.50 - 0.90 mg/dL [facility] GFR >60 >60 mL/min [facility] GFR Non- >60 >60 mL/min [facility] GFR/1.73 sq M.predicted MDRD (S/P/Bld) [Vol rate/Area] [facility] Comment on above: Average GFR for 40-4 9 years old: 99 mL/min/1.73sq m Chronic Kidney Disease: <60 mL/min/1.73sq m Kidney failure: <15 mL/min/1.73sq m eGFR calculated using average adult body mass. Additional eGFR calculator available at: http://www.[employer]roline/multiple_crcl_2012.htm Glucose [Mass/Vol] 100 mg/dL High 70 - 99 mg/dL [facility] Interpretation and review of laboratory results Abnormal [facility] Potassium [Moles/Vol] 4.2 mmol/L 3.7 - 5.3 mmol/L [facility] Sodium [Moles/Vol] 134 mmol/L Low 135 - 144 mmol/L [facility] Urea nitrogen (BldV) [Mass/Vol] 9 mg/dL 6 - 20 mg/dL [facility] Urea nitrogen/Creatinine (Bld) [Mass ratio] 14 [facility] CBC with Auto Differentialon 09-03-2021 Absolute Eos # 0.10 [facility] th Absolute Lymph # 0.90 Low [facility] alth Absolute Deuel # 0.70 [facility] lth Basophils (Bld) [#/Vol] 0.00 10*3/uL [facility] Basophils/100 WBC (Bld) 1 % 0 - 2 % [facility] Differential Type YES [facility]alth Eosinophils/100 WBC (Bld) 1 % 0 - 5 % [facility] Hematocrit (Bld) [Volume fraction] 43.4 % 36 - 46 % [facility] Hemoglobin.gastroin testinal spec 1 Ql (Stl) 14.6 g/dL 12.0 - 16.0 g/dL [facility] Interpretation and review of laboratory results Abnormal [facility] Lymphocytes/100 WBC (Bld) 14 % Low 15 - 40 % [facility] MCH (RBC) [Entitic mass] 31.7 pg 26 - 34 pg [facility] MCHC (RBC) [Mass/Vol] 33.8 g/dL 31 - 37 g/dL [facility] MCV (RBC) [Entitic vol] 93.9 fL 80 - 100 fL [facility] Monocytes/100 WBC (Bld) 11 % High 4 - 8 % [facility] Platelet distribution width (Bld) [Ratio] 13.1 % 12.1 - 15.2 % [facility] Platelets (Bld) [#/Vol] 236 10*3/uL [facility] RBC (Bld) [#/Vol] 4.62 10*6/uL 4.0 - 5.2 m/uL [facility] Segmented neutrophils/100 WBC (Bld) 73 % 47 - 75 % [facility] Segs Absolute 4.70 [facility] h WBC (Bld) [#/Vol] 6.3 10*3/uL [facility] D-Dimer, Quantitativeon 08-13 D-Dimer, Quant 0.34 [facility] Comment on above: When combined with [...] more prevalent in patients with distal DVT. [facility] EKG Rhythm Stripon [facility] Microscopic Urinalysison - [facility] Epithelial Cells UA 0 TO 2 /HPF [facility] RBC, UA 2 TO 5 [facility] Troponinon 09-03-2021 Troponin, High Sensitivity <6 0 - 14 ng/L [facility] Comment on above: High Sensitivity Troponin values cannot be compared with other Troponin methodologies. Patients with high levels of Biotin oral intake (i.e >5mg/day) may have falsely decreased Troponin levels. Samples collected within 8 hours of biotin intake may require additional information for diagnosis. [facility] Urinalysison 09-03-2021 Bilirubin Urine Negative NEGATIVE [facility] Color, UA Yellow Yellow [facility] Glucose, Ur Negative NEGATIVE [facility] Interpretation and review of laboratory results Abnormal [facility] Ketones Ql (U) MODERATE Abnormal NEGATIVE [facility] Leukocyte esterase Test strip Ql (U) Negative NEGATIVE [facility] Nitrite, Urine Negative NEGATIVE [facility] pH, UA 5.0 [facility] Protein, UA Negative NEGATIVE [facility] Specific [place], UA 1.025 [facility] Turbidity UA Clear Clear [facility] Urinalysis Comments [facility] Urine Hgb 2+ Abnormal NEGATIVE [facility] Urobilinogen, Urine Normal Normal [facility] XR CHEST PORTABLEon 09-04-19 22 Hyperinflation, clear [...] lesion. OTHER: Negative. [facility] Ronnie Lyles MD - 09/03/2021 EXAMINATION: XR CHEST PORTABLE HISTORY: Reason for exam:->chest pain COMPARISON: 01/10/2018 TECHNIQUE: Portable FINDINGS: LUNGS: No significant pulmonary parenchymal abnormalities. Hyperinflation VASCULATURE: No increased pulmonary vasculature. PLEURA: No pneumothorax, effusion, or pleural thickening. CARDIAC: No cardiomegaly or cardiac silhouette abnormality. MEDIASTINUM: No visible mass or adenopathy. BONES: No fracture or visible bone lesion. OTHER: Negative. IMPRESSION: Hyperinflation, clear lungs [facility] Work Phone: Radiology Study observation (narrative) [employer] Phone: XR CHEST PORTABLEOrdered By: Ronnie Lyles on 09-03-[address] [employer] [address] HEAD WO CONTRASTOrdered B y: Joan Landrum on 01-22-2021 No evidence of acute intracranial hemorrhage, hematoma or other structural abnormality. Brain CT is stable compared to January 10, 2018. Intact calvarium and skull base. [employer] Phone: EXAMINATION: CT HEAD WO CONTRAST HISTORY: [...] hemorrhage or hematoma. No focal abnormal density. [employer] Phone: Sourav, [facility] Incoming Radiant Results From [employer] - 01/22/2021 11:13 AM EDT EXAMINATION: CT [...] 10, 2018. Intact calvarium and skull base. [employer] Phone: [employer] Phone: XR CERVICAL SPINE (4-5 VIEWS )Ordered By: Joan Landrum on 01-22-2021 Minimal degenerative changes, without fracture. [employer] Phone: EXAM: XR CERVICAL SP INE (4-5 VIEWS) HISTORY: S00.93XA 40-year-old female head contusion. COMPARISON: Cervical spine series 12/10/2020. TECHNIQUE: 5 views cervical spine. 6 images. FINDINGS: Minimal age expected degenerative changes in the cervical spine with no fracture or dislocation. Facets and spinous processes are normal. The intervertebral foramina are patent. Lung apices are clear. The odontoid is normal. [employer] Phone: Sourav, pn Incoming Radiant Results From [employer] - 01/22/2021 11:44 AM EDT EXAM: XR [...] normal. IMPRESSION: Minimal degenerative changes, without fracture. [employer] Phone: [employer] Phone: Vital Signs Date Time Vital Sign Value Performing Clinician Jeremiah castaneda 11-25-2024 16:30-0400 Diastolic blood pressure 74 mm[Hg] Mina Pires MD Work Phone: Justin Morrison [employer] 11-25-2024 16:30-0400 Heart rate 57 /min Mina Pires MD Work Phone: [facility] [employer] 11-25-2024 16:30-0400 Respiratory rate 17 /min Mina Pires MD Work Phone: [facility] [employer] 11-25-2024 16:30-0400 SaO2% (BldA) [Mass fraction] 100 % Mina Pires MD Work Phone: [facility] [employer] 11-25-2024 16:30-0400 Systolic blood pressure 139 mm[Hg] Mina Pires MD Work Phone: [facility] [employer] 11-25-2024 12:27-0400 Body height 167.6 cm Mina Pires MD Work Phone: [facility] [employer] 11-25-2024 12:27-0400 Body mass index (BMI) [Ratio] 20.98 kg/m2 Mina Pires MD Work Phone: [facility] [employer] 11-25-2024 12:27-0400 Body temperature 98.71 [degF] Mina Pires MD Work Phone: [facility] [employer] 11-25-2024 12:27-0400 Body weight 58.97 kg Mina Pires MD Work Phone: [employer] 11-15-2024 12:15-0400 Diastolic blood pressure 74 mm[Hg] Iker Pacheco MD Work Phone: [facility] [employer] 11-15-2024 12:15-0400 SaO2% (BldA) [Mass fraction] 99 % Iker Pacheco MD Work Phone: [facility] [employer] 11-15-2024 12:15-0400 Systolic blood pressure 115 mm[Hg] Iker Pacheco MD Work Phone: [facility] [employer] 11-15-2024 10:45-0400 Heart rate 58 /min Iker Pacheco MD Work Phone: [facility] [employer] 11-15-2024 10:45-0400 Respiratory rate 15 /min Iker Pacheco MD Work Phone: [facility] [employer] 11-15-2024 09:00-0400 Body temperature 98.01 [degF] Iker Pacheco MD Work Phone: [facility] [employer] 11-15-2024 08:59-0400 Body height 170.2 cm Iker Pacheco MD Work Phone: [facility] [employer] 11-15-2024 08:59-0400 Body mass index (BMI) [Ratio] 20.36 kg/m2 Iker Pacheco MD Work Phone: [facility] [employer] 11-15-2024 08:59-0400 Body weight 58.97 kg Iker Pacheco MD Work Phone: [facility] [employer] 10-29-2024 15:30-0400 Diastolic blood pressure 54 mm[Hg] Bola Nam MD Work Phone: [facility] [employer] 10-29-2024 15:30-0400 Heart rate 59 /min Bola Nam MD Work Phone: [facility] [employer] 10-29-2024 15:30-0400 Respiratory rate 16 /min Bola Nam MD Work Phone: [facility] [employer] 10-29-2024 15:30-0400 SaO2% (BldA) [Mass fraction] 98 % Bola Nam MD Work Phone: [facility] [employer] 10-29-2024 15:30-0400 Systolic blood pressure 118 mm[Hg] Bola Nam MD Work Phone: [facility] [employer] 10-29-2024 13:19-0400 Body height 167.6 cm Bola Nam MD Work Phone: [facility] [employer] 10-29-2024 13:19-0400 Body mass index (BMI) [Ratio] 20.18 kg/m2 [facility]ola Nam [facility] 10-29-2024 13:19-0400 Body temperature 98.01 [degF] Bola Nam MD [facility] 10-29-2024 13:19-0400 Body weight 56.7 kg Bola Nam MD [facility]: [facility] 01-21-2022 15:46-0400 Blood Pressure Location Gregg NESS [facility] [place] 01-21-2022 15:46-0400 Diastolic blood pressure 66 mm[Hg] Gregg GARZAL [facility] [place] 01-21-2022 15:46-0400 Heart rate 72 /min Gregg GARZAL [facility] [place] 01-21-2022 15:46-0400 Respiratory rate 16 /min Gregg GARZAL [facility] [place] 01-21-2022 15:46-0400 Systolic blood pressure 124 mm[Hg] Gregg GARZAL [facility] [place] 09-04-2021 10:30-0400 Diastolic blood pressure 69 mm[Hg] Alexis Brandon MD Work Phone: [employer] 09-04-2021 10:30-0400 Heart rate 97 /min Alexis Brandon MD Work Phone: [employer] 09-04-2021 10:30-0400 Respiratory rate 22 /min Alexis Brandon MD Work Phone: [employer] 09-04-2021 10:30-0400 SaO2% (BldA) [Mass fraction] 98 % Alexis Brandon MD Work Phone: [employer] 09-04-2021 10:30-0400 Systolic blood pressure 112 mm[Hg] Alexis Brandon MD Work Phone: [employer] 09-04-2021 07:44-0400 Body temperature 98.2 [degF] Alexis Brandon MD Work Phone: [employer] 09-03-2021 17:00-0400 Diastolic blood pressure 74 mm[Hg] Alexis Brandon MD Work Phone: [employer] 09-03-2021 17:00-0400 Heart rate 94 /min Alexis Brandon MD Work Phone: [employer] 09-03-2021 17:00-0400 Respiratory rate 15 /min Alexis Brandon MD Work Phone: [employer] 09-03-2021 17:00-0400 SaO2% (BldA) [Mass fraction] 96 % Alexis Brandon MD Work Phone: [employer] 09-03-2021 17:00-0400 Systolic blood pressure 119 mm[Hg] Alexis Brandon MD Work Phone: [employer] 09-03-2021 15:02-0400 Body height 167.6 cm Alexis Brandon MD Work Phone: [employer] 09-03-2021 15:02-0400 Body mass index (BMI) [Ratio] 20.98 kg/m2 Alexis Brandon MD Work Phone: [employer] 09-03-2021 15:02-0400 Body weight 58.97 kg Alexis Brandon MD Work Phone: [employer] 09-03-2021 15:01-0400 Body temperature 98.1 [degF] Alexis Brandon MD Work Phone: [employer] Encounters Encounter Date Encounter Type Care Provider Facility Start: 11-25-2024 End: 11-25-2024 Emergency department patient visit Mina Pires MD Work Phone: [facility] Emergency Department Comment on above: Dyspnea, unspecified type (Primary Dx); Costochondritis Start: 11-16-2024 ambulatory TRINIDAD FRANCISCO [facility] Start: 11-15-2024 End: 11-17-2024 ambulatory IKER PACHECO [facility] Start: 11-15-2024 End: 11-17-2024 Subsequent hospital visit by physician [facility] Non Invasive [facility] Non-Invasive Cardiology Comment on above: Syncope and collapse Start: 11-15-2024 End: 11-15-2024 Emergency department patient visit Iker Pacheco MD Work Phone: [facility] Emergency Department Comment on above: TIA (transient ische cricket attack) (Primary Dx); Syncope and collapse; Symptoms of dehydration; Radicular pain in left arm Start: 11-08-2024 End: 11-08-2024 ambulatory [facility] Start: 11-08-2024 End: 11-08-2024 Encounter for other preprocedural examination [facility] Start: 10-30-2024 End: 10-30-2024 [facility] Start: 10-29-2024 End: 10-29-2024 Emergency department patient visit Bola Nam MD Work Phone: [facility] Emergency Department Comment on above: Chest pain, unspecif ied type (Primary Dx) Start: 10-20-2024 End: 10-20-2024 ambulatory [facility] Start: 10-19-2024 ambulatory [facility] Start: 10-10-2024 End: 10-10-2024 ambulatory [facility] Start: 10-10-2024 End: 10-10-2024 ambulatory [facility] Start: 10-03-2024 End: 10-03-2024 ambulatory SENG DERISO [facility] Start: 09-29-2024 End: 09-29-2024 ambulatory SARAH RAGLAND [facility] Start: 08-29-2024 End: 08-29-2024 Patient encounter procedure John Price MD Work Phone: [facility] [place] Work Phone: Start: 08-29-2024 End: 08-29-2024 ambulatory John Price MD Work Phone: [facility] Work Phone: Start: 08-11-2024 End: 08-11-2024 Departed Referred Sergo Hummel [facility] DO Work Phone: [facility] [address] Work Phone: Start: 08-11-2024 End: 08-11-2024 ambulatory Sergo Hummel [facility] Work Phone: Start: 01-05-2024 End: 01-07-2024 ambulatory NIKOLAY CANTU [facility] Start: 01-05-2024 End: 01-07-2024 Subsequent hospital visit by physician John Price MD Work Phone: [facility] [employer] Start: 05-04-2023 ambulatory JEANETTE CALABRESE Facility :[facility] Start: 05-04-2023 End: 05-04-2023 Subsequent hospital visit by physician Jeanette Calabrese PROSTHETIC DENTIST-CONTROLLER INSTRUCTOR Work Phone: [facility] Mamm[facility] at [facility] [place] Comment on above: Arrived Start: 03-29-2023 End: 03-30-2023 ambulatory [facility] Start: 03-04-2023 End: 03-05-2023 ambulatory QUYNH HUGHES [facility] Start: 02-26-2023 End: 02-27-2023 [facility] Start: 02-26-2023 Encounter for gynecological examination (general) (routine) without abnormal findings JOHN PRICE [facility] Start: 09-21-2022 End: 09-22-2022 ambulatory SHELDON BENNETT Facility:[facility] Start: 09-01-2022 End: 09-02-[address] JOHN PRICE . Facility:[facility] Start: 08-26-2022 End: 08-27-[address] JOHN PRICE . Facility:[facility] Start: 02-18-2022 End: 02-19-2022 ambulatory Gregg NESS Facility:[id number] Start: 02-17-2022 Encounter for preprocedural laboratory examination DR GREGG NESS . [facility] Start: 02-14-2022 End: 02-15-[address] GREGG NESS . Facility:[facility] Start: 02-14-2022 End: 02-15-2022 Encounter for preprocedural laboratory examination DR GREGG NESS . Facility: Start: 01-21-2022 End: 01-22-2022 ambulatory Gregg NESS Facility:[facility] [place] Start: 01-21-2022 End: 01-21-2022 Patient encounter procedure Gregg NESS General Surgery [facility] [place] Start: 12-25-[address] JOHN PRICE . Facili ty:[facility] [place] Start: 09-04-2021 End: 09-04-2021 Emergency department patient visit Alexis Brandon MD Work Phone: [facility] ED Comment on above: Shortness of breath (Primary Dx); Moderate persistent asthma with exacerbation; Dehydration; Diarrhea, unspecified type; Exacerbation of Crohn's disease with complication (HCC) Start: 09-03-2021 End: 09-03-2021 Emergency department patient visit Alexis Brandon MD Work Phone: [facility] ED Comment on above: Nausea and vomiting, intractability of vomiting not specified, unspecified vomiting type (Primary Dx); Diarrhea, unspecified type; Shortness of breath Start: 01-22-2021 End: 01-24-2021 Subsequent hospital visit by physician [facility] Cat Scan Room [facility] Radiology Comment on above: Contusion of head, u nspecified part of head, initial encounter Procedures Date Procedure Procedure Detail Performing Clinician Start: 11-25-2024 Radiologic exam ches t single view Mina Pires MD Work Phone: Start: 11-25-2024 Comprehensive metabo lic panel Mina Pires MD Work Phone: Start: 11-15-2024 End: 11-15-2024 Ct head/brain w/o contrast material Iker Pacheco MD Work Phone: Start: 11-15-2024 End: 11-15-2024 Basic metabolic panel calcium total Iker Pacheco MD Work Phone: Start: 11-15-2024 Ecg routine ecg w/le ast 12 lds w/i&r Iker Pacheco MD Work Phone: Start: 10-29-2024 Assay of troponin quantitative Bola Nam MD Work Phone: Start: 10-29-2024 Radiologic exam ches t single view Bola Nam MD Work Phone: Start: 10-29-2024 Basic metabolic pane l calcium total Bola Nam MD Work Phone: Start: 10-29-2024 Ecg routine ecg w/le ast 12 lds w/i&r Bola Nam MD Work Phone: Start: 08-29-2024 CT of thorax with contrast John Price MD Work Phone: Start: 08-11-2024 Plain chest X-ray Sergo Lovelace [facility] Work Phone: Start: 02-26-2023 Microscopic observat ion [Identifier] in Cervix by Cyto stain John Price MD Work Phone: Start: 09-04-2021 Ecg routine [...] cervical 4 or 5 views Joan Diallo DIAZ [employer] Work Phone: Start: 01-22-2021 Ct head/brain w/o co ntrast material Joanayaan Landrum PROSTHETIC DENTIST - [employer] Work Phone: Start: 06-09-2016 Diagnostic laparoscopy Gregg NESS Start: 05-09-2012 Diagnostic laparoscopy Gregg NESS Start: 05-20-2011 Colonoscopy Gregg SCHMIDT Cholecystectomy Gregg NESS Endometrial ablation Gregg NESS Ligation of fallopian tube Rima schultenavya NESS Plan of Treatment Date Care Activity Detail Author Start: 02-26-2026 Screening for malignant neoplasm of cervix [facility] Start: 04-27-2025 Screening for malignant neoplasm of breast Breast cancer screen [facility] Start: 01-12-2025 Influenza vaccination Flu vacc ine (Season Ended) [facility] Start: 11-15-2024 End: 11-15-2025 Extended cardiac holter monitor (3 days-14 day) [facility] Comment on above: Expected: 11/15/2024 , Expires: 11/15/2025 1 Occurrences starti ng 11/15/2024 until 11/15/2024 Start: 11-01-2024 End: 11-01-2024 Patient encounter procedure 11/01/2024 8:40 AM EDT Office Visit [facility] [address] [place] [id number] Quynh Hughes APRN - MARISEL [address] [facility] [address] [place], [place] [id number] yearly [facility] Comment on above: yearly Start: 04-15-2024 Depression Screen Depression Screen [facility] Start: 03-26-2024 Screening for malignant neoplasm of breast MAMMOGRAM SCREENING DISCUSSION [facility] Start: 02-13-2024 COVID-19 Vaccine ( season) COVID-19 Vaccine ( season) [facility] Start: 01-13-2024 Influenza vaccination Flu vaccine (# 1) [facility] Start: 11-11-2023 Screening for malignant neoplasm of colon [facility] Start: 05-12-2023 End: 05-12-2023 Patient encounter procedure [facility] Mammography at [facility] Start: 02-12-2023 Influenza vaccination INFLUENZA VACC INE (#1) [facility] Start: 02-12-2021 Influenza vaccination Flu vaccine (# 1) [facility] Start: 2018 Lipid panel [facility] Start: 2008 Screening for malignant neoplasm of cervix [facility] Start: 11-11-1999 Screening for malignant neoplasm of cervix [facility] Start: 1997 DTaP/Tdap/Td vaccine (2 - Tdap) DTaP/Tdap/Td vaccine (2 - Tdap) [facility] Start: 1997 Hepatitis B vaccine (1 of 3 - 19+ 3-dose series) Hepatitis B vaccine (1 of 3 - 19+ 3-dose series) [facility] Start: 1997 Pneumococcal 0-49 years Vaccine (1 of 2 - PCV) Pneumococcal 0-49 years Vaccine (1 of 2 - PCV) [facility] Start: 1997 Third diphtheria, tetanus and acellular pertussis (DTaP) vaccination TDAP (ADULT) [facility] Start: 1996 Hepatitis C screening Hepatitis C sc reen [facility] Start: 1993 HIV screening [facility] Start: 1990 COVID-19 Vaccine (1) COVID-19 Vaccin e (1) [facility] Work Phone: Start: 1990 Depression Screen Depression Screen [facility] Start: 1984 Pneumococcal 0-64 years Vaccine (1 of 2 - PCV) Pneumococcal 0-64 years Vaccine (1 of 2 - PCV) [facility] Start: 1984 Pneumococcal 0-64 years Vaccine (1 of 2 - PPSV23) Pneumococcal 0-64 years Vaccine (1 of 2 - PPSV23) [facility] Start: 11-11-1983 COVID-19 Vaccine (1) COVID-19 Vaccin e (1) [facility] Start: 05-13-1979 COVID-19 VACCINE (#1) COVID-19 VACCI NE (#1) [facility] Start: 03-13-1979 Polio vaccine (2 of 3 - 4-dose series) Polio vaccine (2 of 3 - 4-dose series) [facility] Start: 1978 Hepatitis B vaccine (1 of 3 - 3-dose series) Hepatitis B vaccine (1 of 3 - 3-dose series) [facility] Start: 1978 Hepatitis C screening [facility] Start: 1978 Tetanus vaccination TETANUS [facility] Continuous pulse oximetry Pulse oximetry, continuous Respiratory Care STAT Every 4hr until discontinued starting 10/29/2024 [employer] Comment on above: Every 4hr until disc ontinued starting 10/29/2024 EKG 12 Lead EKG 12 Lead ECG STAT 09/03/2021 3:11 PM EDT [employer] Work Phone: EKG 12 Lead EKG 12 Lead ECG STAT 09/04/2021 9:33 AM EDT [employer] Work Phone: EKG 12 Lead EKG 12 Lead ECG STAT 10/29/2024 1:23 PM EDT [place] End: 05-04-2023 MG Breast Views [facility] Work Phone: Comment on above: 1 Occurrences starti ng 05/04/2023 until 05/04/2023 Payers Date Payer Category Payer Self-pay 2024 Unknown [id number] 2024 Unknown [id number] 2021 Unknown ANTHEM KODYEM HM O PPO POS [id number] 2021-Present [address] [place] [address] [id number] 1978 Unknown [id number] [id number] 1978 Unknown [id number] 2.16.840.1.387818.3.579.2.727 1978 Unknown [id number] 2.16.840.1.742756.3.579.2.593 1978 Unknown [id number] 2.16.840.1.921705.3.579.2.593 1978 Unknown [id number] 2.16.840.1.439877.3.579.2.593 1978 Unknown [id number] 2.16.840.1.165485.3.579.2.593 1978 Unknown [id number] 2.16.840.1.300050.3.579.2.593 1978 Unknown [id number] 2.16.840.1.302818.3.579.2.593 1978 Unknown [id number] 2.16.840.1.047628.3.579.2.173 1978 Unknown [id number] 2.16.840.1.157312.3.579.2.173 1978 Unknown [id number] 2.16.840.1.802436.3.579.2.173 1978 Unknown [id number] 2.16.840.1.485844.3.579.2.594 1978 Unknown [id number] 2.16.840.1.223503.3.579.2.174 1978 Unknown [id number] 2.16.840.1.002253.3.579.2.174 1978 Unknown [id number] 2.16.840.1.233946.3.579.2.174 1978 Unknown [id number] 2.16.840.1.604705.3.579.2.174 1978 Unknown [id number] 2.16.840.1.751278.3.579.2.174 1959 Unknown [id number] [id number] [id number] 1959 Unknown [id number] [id number] [id number] Unknown 100 ODJFS [facility] [id number] Unknown [id number] [id number] Social History Date Type Detail Facility Start: 01-24-2021 End: 10-29-2024 Tobacco smoking status NHIS Current every day smoker [employer] Work Phone: History of tobacco use Cigarette Smoker [facility] [employer] [facility] Start: 01-24-2021 End: 04-15-2023 Cigarettes smoked current (pack per day) - Reported [facility] [employer] Start: 01-24-2021 End: 10-29-2024 Tobacco use and exposure Never used [employer] Start: 01-24-2021 End: 11-25-2024 Alcohol intake Current non-drinker of alcohol (finding) [employer] Phone: Start: 1980 Sex Assigned At Not on file [facility] [employer] [facility] Work Phone: Start: 08-24-2021 End: 09-04-2021 Exposure to SARS-CoV-2 (event) Not sure [employer] Phone: Start: 01-21-2022 Tobacco smoking status Heavy t obacco smoker (finding) [facility] Tobacco smoking status Never [facility] Start: 04-15-2023 End: 04-27-2023 Sex Assigned At Female General [facility] Tobacco smoking stat [facility] Tobacco smoking consumption unknown [facility] Start: 07-24-2012 End: 08-12-2024 Sex Female (finding) [facility] Start: 1980 Sex Assigned At Female F [facility] How often to you hav e a drink containing alcohol? Never [employer] Functional Status Date Assessment Result Facility 01-21-2022 Functional Status N/A [facility] Clinical Notes 01-22-2022 to 11-16-2024 Note Date & Type Note Facility 11-16-2024 Note Subjective Patient ID: Nahum Segovia is a 44 y.o. female who presents for Pre-op Visit. HPI 43 year old female with medical history significant for Crohn's disease, Asthma, Dumping Syndrome, Rheumatoid arthritis, and diffuse cystic mastopathy. She also has PMH tobacco abuse(10pk-yr) and daily marijuana use. 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 The abnormal appearance of the CXR, led to a CT Scan of the Chest, which revealed the following: elongated hypodense area which etends from the anterior mediastinum down to the right pericardial region measuring 9.8 x 4.6 x 3.7 cm in size. She was then referred to cardiology(Dr. Ragland) and underwent an echocardiogram, which showed: Severely reduced LV systolic function in a global fashion, EF 25%. Grade 1 diastolic dysfunction, Trivial aortic regurgitation, and pericardial cyst. She was referred to CT Surgery was surgical evaluation of pericardial cyst. At our initial evaluation on 10/19/24, Ms. Segovia complained of frequent dull and achy chest pain that radiates to her arms, with associated tingling of her fingers. The pain is sometimes sharp. We recommended an ischemic workup due to her symptoms and newly discovered HFrEF. She underwent RHC and LHC on 10/20/24. No significant findings. She was started on GDMT for HFrEF by the cardiology team. Patient returns today for re-evaluation to discuss surgery. Since we last evaluated her on 10/19/24, she has had 2 ED visits. The first on 10/29/24 for Chest pain and shortness of breath. She was discharged home with follow up with cardiology. Most recently she went to [facility] on yesterday(11/15/24) for dizziness and syncope. States that she was sitting outside and started to have a tight feeling in her neck that radiated to her left jaw, ear and shoulder, then developed numbness and tingling on the left side of her face. States the next thing she remembers is someone picking her up. No loss of bowel or bladder function. Denies any other symptoms prior to the event. No previous episodes of syncope. Her cardiac workup in the ED was negative for acute events. Neurological exam was benign. She underwent CTA Head and Neck, which did not show evidence of an acute event. The ED attending had concerns for possible TIA, vs dehydration, vs arrhythmia. She was discharged home from the ED with a 5-day Holter Monitor and instructions to monitor fluid intake closely andfollow up with cardiology and PCP. She has not complaints today, besides ongoing fatigue. No dizziness or lightheadedness. No numbness or paresthesia since previous episode. No palpitations or difficulty with gait or balance. Denies chest pain, but states that she experiences chest pressure when lying in certain positions and with moderate exertion. She denies fever and chills. No abdominal pain, nausea or vomiting. Take all medications daily as prescribed. Review of Systems See HPI Objective Visit Vitals BP 144/73 (BP Location: Right arm, Patient Position: Sitting, BP Cuff Size: Adult) Pulse 70 10/20/24: RHC and LHC: Hemodynamic Data: RA: 1 RV: 20/0, 3 [...] factor control. Follow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
--- NOTE | 2024-11-27 06:43 | MR_ITS ---
The [address] [address] Patient Name: NAHUM SEGOVIA MRN: [id number] date: 1980 Sex: F Assigned Patient Location: MRI Current Patient Location: MRI Accession/Order Number: [id number] Exam Date: 11/27/2024 08:53 Report Date: 11/27/2024 09:07 At the request of: JOHN PRICE MD Procedure: MR head/brain wo con EXAMINATION: MRI OF THE BRAIN WITHOUT CONTRAST CLINICAL HISTORY: TIA G45.9; right side weakness M62.81 COMPARISON: CT 11/17/2024 TECHNIQUE: Multiecho, multiplanar imaging of the brain was performed without enhancement. Patient terminated the scan early due to nausea and increased heart rate. The ventricles are normal in size and position. There are no suspicious areas of abnormal signal intensity within the supra- or infratentorial brain. No restricted diffusion is identified to suggest a recent ischemic event. There are no extra-axial collections or mass effect. There is potential partial empty sella. The imaged paranasal sinuses and mastoid air cells are clear. MR/MR head/brain wo con IMPRESSION: NO ACUTE INTRACRANIAL FINDINGS. Impression dictated by: Rosa Jones M.D. 11/27/2024 9:07 AM Dictation Location: [place] [address] Electronically authenticated by: [id number] Y Date: 11/27/2024 09:07
== END 2024-11-27 06:40 | disposition home or self-care (01) ==
LOC: MRI 06:39
PROVIDERS: PCP Family Medicine; Visit Provider Family Medicine
DX: G45.9 Transient cerebral ischemic attack, unspecified (principal); M62.81 Muscle weakness (generalized)
CPT/HCPCS: 70551

== ENCOUNTER 2025-01-02 12:52 | Outpatient (OUT) | payer BC, SELFPAY ==
--- OUTSIDE RECORDS SUMMARY | 2023-10-21 11:45 | XMS_ITS | Continuity of Care Document ---
Author Organization [facility] Address [address] [place] [address] Phone Care Team Providers Care Office Support Clerk Name Role Phone Ari Rust Unavailable Unavailable Procedures Procedure Date TB Read TB INTRADERMAL TEST Advance Directives Directive Yes / No Effective Date File Name No Information Encounters Encounter Description Practice Location Reason(s) For Visit Diagnoses Date Provider Providers Copied on Encounter [facility], [address] [place] [address], [id number], tel:[phone] [facility] No Information Earnestine Zendejas. [address] [place], [place], [id number], [place]. tel:[phone] [facility], [address] [place], [place], [id number], tel:[phone] [facility] Encounter for screening for respiratory tuberculosis Earnestine Zendejas. [address] [place], [place], [id number], [place]. tel:[phone] Family History Family Member Type Diagnosis Age At Onset No Information Payers Payer name Insurance type Covered alliance party ID Authoriza tion(s) No Information Social [...]
--- OUTSIDE RECORDS SUMMARY | 2024-12-08 07:30 | XMS_ITS ---
Author Organization [facility] in [place] Address [address] [place] [address] Care Team Providers Care Farm Machinery Set Up Mechanic Name Role Phone Giovanny Moreno Primary Care Provider [phone] REASON FOR VISIT neurology referral Encounters Encounter Location Date Provider Diagnosis [facility] [address] [place] [address] 12/08/2024 Giovanny Moreno Plan Of Treatment No Information Progress Notes * Tammy GUZMAN MDOB :1980 (44 yo F)Acc No.[id number]:12/08/2024 UNLOCKED PROGRESS NOTE Progress Note Patient: Tacos PAREDES Tammy Abarca Provider: Vijay Moreno MD (TTC) :1980 A ge:44 Y S ex:Female Date:12/08/2024 Address:[address] [facility], [id number] Subjective: * Chief Complaints: * 1 . Neurology referral. * Medical History: Objective: * Vitals: Assessment: Plan: * Treatment: * * Electronic signature of Giovanny Moreno MD, [id number] on 01/02/2025 at 12:56 PM EDT Sign off status: Pending Visit Status: C ANCPHONE (Cancelled Phone) * Provider: Vijay Moreno MD (TTC) Date: 12/08/2024 Generated for Printi ng/Faxing/eTransmitting on: 01/02/2025 12:56 PM EDT
--- OUTSIDE RECORDS SUMMARY | 2024-12-14 07:02 | XMS_ITS ---
Author Organization [facility] in [place] Address [address] [place] [address] Care Team Providers Care Staple Side Laster Name Role Phone Giovanny Moreno Primary Care Provider REASON FOR VISIT refill Medications Medication SIG (Take, Route, Fr equency, Duration) Notes Start Date End Date Status ALPRAZolam 0.25 MG 1 tablet Orally tid for 14 days F41.9 12/14/2024 Active Encounters Encounter Location Date Provider Diagnosis [facility] [address] [facility] [place] [address] 12/14/2024 Giovanny Moreno Plan Of Treatment Medication Medication Name Sig Start Date Stop Date Notes ALPRAZolam 0.25 MG 1 tablet Orally tid for 14 days 025 Progress Notes * Tammy GUZMAN MDOB :1980 (44 yo F)Acc No.[id number]:12/14/2024 Patient: Tacos MCARTHURTammy OCASIO :1980 A ge:44 Y S ex:Female Address:[address] [place] [address] * Refills Refill ALPRAZolam Tablet, 0.25 MG, Orally, 42 Tablet, 1 tablet, tid, 14 days, Refills=0 * true * Date: Generated for Leathai taco/Indiag/eTransmitting on: 0 01/02/2025 12:54 PM EDT
--- OUTSIDE RECORDS SUMMARY | 2024-12-28 09:55 | XMS_ITS | Encounter Summary ---
Author Organization [facility] Address [address], [address] [place] [address] Care Team Providers Care Major Donor Coordinator Name Role Phone Abhay Moreno MD Primary Care Provider [phone] Encounter Details Date Type Department Care Team (Latest Contact Info) Description 12/28/2024 9:55 AM EDT - 12/28/2024 11:59 PM EDT Hospital Encounter [facility] [address] [phone] 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, barkeep Disposition: Home or Self Care Social History [...] you have a drink containing alcohol? Never 11/25/2024 Q2: How many drinks containi ng alcohol do you have on a typical day when you are drinking? Patient does not drink Q3: How often do you have si x or more drinks on one occasion? Never 11/25/2024 PHQ-2 Answer Date Recorded PHQ-9 Total Score 1 04/15/2023 Comments No Sex and Gender Information Value Date Recorded Sex Assigned at Not on file Legal Sex Female 3:26 PM EST Gender Identity Not on file Sexual Orientation Not on file documented as of this encounter Medications at Time of Discharge meclizine (ANTIVERT) 25 MG tablet Take 1 tablet by mouth in the morning and 1 tablet in the evening. tamsulosin (FLOMAX) 0.4 MG capsule Take 1 capsule by mouth daily valACYclovir (VALTREX) 1 g tablet Take 1 tablet by mouth daily ketorolac (TORADOL) 10 MG tablet Take 1 tablet by mouth every 6 hours as needed for Pain 10 tablet 11/25/2024 ALPRAZolam (XANAX) 0.25 MG tablet Take 2 tablets by mouth 3 times daily as needed. 11/14/2024 spironolactone (ALDACTONE) 25 MG tablet Take 2 tablets by mouth at bedtime 10/30/2024 10/30/2025 aspirin 81 MG chewable tablet Take 1 tablet by mouth daily 09/29/2024 09/29/2025 losartan (COZAAR) 50 MG tablet Take 1 tablet by mouth daily 09/29/2024 09/29/2025 metoprolol succinate (TOPROL XL) 25 MG extended release tablet Take 2 tablets by mouth daily 09/29/2024 09/29/2025 documented as of this encounter Progress Notes * 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 RN - 12/28/2024 10:00 AM EDT Cardiac Rehab Initial History and Assessment Tammy Mac 1980 [id number] 12/28/2024 Pre-cert Verification: ELIGIBILITY CHECK COMPLETED BY CALLING AGENTDANNY AT [facility]. REPORTED TO BE IN NETWORK FOR SERVICE AND DX AND 20% CO-INSURANCE EXPECTED OOP UNTIL MAX OOP REACHED THEN 100%. PT STATES HAS MEDICAID SECONDARY. [employer] FINANCIAL ASSISTANCE APPLICATION IS OFFERED, BUT PT DENIES NEEDAT THIS TIME. PT VERBALIZES UNDERSTANDING & ACCEPTANCE OF OWN FINANCIAL RESPONSIBILITY FOR OOP N OT COVERED. Primary Diagnosis: HEART FAILURE W/ LVEF 25% Onset: 09/23/24 Living Will: [] Yes [x] No On File: [] Yes [x] No [] N/A Durable Power of Polishing Wheel Repairer: [] Yes [x] No Pt requests Living Will information.: [x] Yes [] No Medical History Past Medical History: Diagnosis Date Asthma Crohn's disease (HCC) Diffuse cystic mastopathy Dumping syndrome Heart failure (HCC) Pericardial cyst Rheumatoid arthritis(714.0) Past Surgical History: Procedure Laterality Date BREAST LUMPECTOMY Right and left CARDIAC CATHETERIZATION 10/20/24 CHOLECYSTECTOMY ENDOMETRIAL ABLATION TUBAL LIGATION Family History Family History Problem Relation Age of Onset Heart Disease Maternal Grandfather Symptoms: 1. Angina [] None [x] Loss of Energy / Fatigue [] Tightness [x] Shortness of Breath [] Pressure [] Nausea [x] Sharp, Stabbing [] Pallor [] Indigestion, Heartburn [] Sweaty Where was discomfort located? MID-CHEST Precipitating Factors? PHYSICAL EXERTION Relieved by? MED. MGT 2. Arrhythmia [] None [x] Heart Racing [x] Irregular Beats (skips) [] Pacer [] Atrial Fibrillation [] AICD On any Antiarrhythmia Medications? TOPROL XL 50 MG, QD 3. Congestive Heart Failure [] None [] Distended Abdomen [x] Pedal Edema [] Unusual weight gain [x] SOB with mild exertion [x] Fatigue [x] Extra Pillows (Number?): 45 DEGREE ANGLE 4. Vascular [x] None [] Carotid Narrowing [] R [] L [] Peripheral claudication [] R [] L 5. Musculoskeletal [] None [x] Back Pain Where? CHRONIC-INTERMITTENT LBP & CERVICAL SPINE DISCOMFORT & RT ARM PAIN SHARP-SORE [] Joint discomfort Where? [] Other Where? 6. Limitations to Home or Work Activities: [x] Yes [] No If yes, what?: THINGS REQUIRING GOOD BALANCE Current Exercise [] Yes - type/frequency/intensity/duration: [x] No 6. Neurological [] None [] Numbness / Tingling Where? [] Peripheral Neuropathy Where? [x] TIA ? Deficit / Where? Nutrition Assessment Diet / Special Diet: CHRON'S DIET Appetite: [] Too Good [] Good [] Fair [x] Poor Eating Out or Takeout 6-7 times/wk [] Dietary Supplement: [] Yes [x] No If yes, what? Diet Medications (if applicable) Willing to complete a food diary?: [] Yes [] No [x] Maybe Weight Loss / Gain: [x] Maintain Current Weight [] Loss [] Gain REAPS NUTRITION SURVEY: 25 Alcohol Consumption: [] Yes [x] No Caffeine: [x] Yes [] No Type: COFFEE Amount: Caffeine: [x] Cups [] Cans [x] Bottles /day: 1 Water / Other Fluids: [] Cups [] Glasses [x] 1 Bottles /day [] Ounces / day [place], [place] Vitamins/Natural herbal products: [] Yes [x] No If so, what? DIABETES / PREDIABETES: [] Yes [x] No Fall Risk Assessment: History of falls with or without injury / SYNCOPE NOVEMBER 17, 2024 [x] Yes [] No Use of ambulatory aid [x] Yes [] No Difficulty walking/impaired gait [x] Yes [] No Numbness in feet [] Yes [x] No Vision changes [] Yes [x] No Dizziness [x] Yes [] No Shortness of breath [x] Yes [] No Medications [] Anticoagulant [x] Betablocker /CHA/ARB [] Antidepressant [] Seizure medication [] NA Risk of fall [] Low (0 - 3 of above + Consider Recent Fall Hx to Determine Higher Risk) [x] Medium (4 above + Consider Recent Fall Hx to Determine Higher Risk) [] High (5 or more above) Medication Compliance (stated): [x] 100% [] 75% [] 50% [] 25% [] 0% Tobacco Use Social History Tobacco Use Smoking Status Every Day Current packs/day: 0.50 Types: Cigarettes Smokeless Tobacco Never Current smokers: Longest quit attempt: TBD Tobacco triggers: TBD Barriers to successful cessation: TBD [] Smoking cessation medication: Psychological [] Depression [] Tearful [] Fearful [x] Cheerful [] Anxious [x] Motivated [] Overwhelmed Treatment: N/A Stress Source: HEALTH CONCERNS Relaxation techniques: PER BELOW Hobbies: PIOLGA [employer]TIS Do you have a reliable support network (family / friends)?: [x] Yes [] No Depression Screening: PHQ-9 SCORE: 18 FINESSE-7 ANXIETY SCORE 20 Socio-Economic Marital Status: Family Concerns: ELDERLY FATHER MOVING IN W/ PT Level of Education [] 8th Grade [x] Associates [] Masters [] Some College: [] High School [] Bachelor [] Other: Cardiovascular Knowledge Assessment Score: 87% Education Needs: STD CARDIOPULMONARY CURRICULUM Physical Findings Weight:127.4 LB Height: 66 IN. (2.82 M2) BMI: 20.5 Waist Circumference: 31.25 IN. Ahkxx-nu-Hbtoup Ratio: 0.47 Cardiovascular- No edema, S1-S2 and apically regular to auscultation, strong bilateral upper and lower extremity pulses at +2, no carotid bruits. Monitor rhythm-SINUS RHYTHM VR- 67 TN- 0.16 QRS- 0.08 QT- 0.38 Ejection Fraction- 25% Pulmonary- Clear to auscultation bilaterally through out. Neurological- No deficit noted or reported. Psycho-social- No deficit noted or reported. Peripheral Vascular- No deficit noted or reported. Muscular Skeletal- [x] Back Pain Where? CHRONIC-INTERMITTENT LBP & CERVICAL SPINE DISCOMFORT & RT ARM PAIN SHARP-SORE Pain Assessment- Pain Level Tolerable <4+/10 on 10 point Likert scale Location/ radiation/ Frequency/ Duration- 6.5 RT ARM LIKE BAD TOOTHACHE Endocrine- No deficit noted or reported. Gastrointestinal- CHRON'S DZ W/ DUMPING SYNDROME Genitourinary- No deficit noted or reported. Physical limitations- only as per above Goals: Overall Personal Program Goal: IMPROVE MY HEART STRENGTH [x] Initial Goal [] Progressing to Goal [] Not Meeting--Needs Reinforcement [] Goal Met [] Goal Not Met To increase stamina, strength, and flexibility by exercising 31-50 total minutes by engaging in aerobic, resistance, and flexibility workout modalities with the goal of progressively achieving at least 0.5 to 1.0 metabolic equivalant improvement in the next 30 days as evidenced by daily session reports / [x] Initial Goal [] Progressing to Goal [] Not Meeting--Needs Reinforcement [] Goal Met [] Goal Not Met To achieve and progress prescribed exercise frequency, intensity, time, and type in the next 30 days based upon initial evaluation and submaximal graded exercise results as evidenced by the attainingand maintaining the prescribed target heart rate range, a Taco rating of perceived exertion [id number] and 16, duration of >30 - 50 minutes using multiple exercise modes for at least 3 - 5 days per week to accumulate a minimum total of 2.5 hours per week of moderate aerobic intensity exercise, as tolerated, evidenced by daily session reports and home workout log / [x] Initial Goal [] Progressing to Goal [] Not Meeting--Needs Reinforcement [] Goal Met [] Goal Not Met To MTN APPROXIMATELY SAME body weight in the next 30 days through moderating nutrional intake and performing regular aerobic and strength training exercises as prescribed with improvement evidenced by daily session report comparison / [x] Initial Goal [] Progressing to Goal [] Not Meeting--Needs Reinforcement [] Goal Met [] Goal Not Met To decrease waist circumference by 5% by program completion if waist measurement is > or = 40 inches (male) / > or = 35 inches (female) as evidence by the Accomplishment Worksheet / [x] InitialGoal [] Progressing to Goal [] Not Meeting--Needs Reinforcement [] Goal Met [] Goal Not Met To introduce and progress 8-10 different bilateral UE and LE progressive resistance exercises focused on major muscle groups using 1-3 sets each per lift, on 2-3 non-consecutive days implementing free and machine weights and GREEN therabands, as appropriate, with a resistance of 40-60% 1-repetition maximum or 10 -15 repetitions to progressive overload and increasing resistance once repetitions have progressed to 15 reps and feel ???fairly light?? on 2 prior occasions in the next 30 days / [x] Initial Goal [] Progressing to Goal [] Not Meeting--Needs Reinforcement [] Goal Met [] Goal Not Met To achieve and maintain an optimal average resting blood pressure of <130 / 80 mmHg, or as indicated by this patient's referring provider, in the next 30 days / [x] Initial Goal [] Progressing to Goal [] Not Meeting--Needs Reinforcement [] Goal Met [] Goal Not Met To strive for blood lipid optimization with an LDL-C of <100 mg/dL or LDL 70 mg/dL, an HDL-C of > or = 40 mg/dL for men and > or = 50 mg/dL for women, and a triglyceride level of <150 mg/dL via lifestyle education, behavioral modification, and medication compliance / [x] Initial Goal []Progressing to Goal [] Not Meeting--Needs Reinforcement [] Goal Met [] Goal Not Met -To develop regular home aerobic exercise program for 20 - 60 minutes at least 2 non-rehab days perweek, excluding 5 - 10 minutes warm-up and cool-down periods, within the next 30 days, being tracked on home workout log / [x] Initial Goal [] Progressing to Goal [] Not Meeting--Needs Reinforcement [] Goal Met [] Goal Not Met To reduce self-reported psycho-social feelings of stress in the next 30 days as evidenced by pre- and post- surveys and by routine rounding with patient to ascertain subjective improvements / [x] Initial Goal [] Progressing to Goal [] Not Meeting--Needs Reinforcement [] Goal Met [] Goal Not Met In the next 30-days, to eat on average at least 2 servings of fruit per day and 4-5 servings of vegetables per day as evidenced by pre- and post-program nutriton survey and routine rounding with patient to ascertain progression toward goal per patient's self report, food diary, and Boua-lyah-Dwcci screening survey / [x] Initial Goal [] Progressing to Goal [] Not Meeting--Needs Reinforcement [] Goal Met [] Goal Not Met To strive to eat < or = 30% of daily caloric intake of total fat and <10% of daily caloric saturated fat tracked by patient's self-report, food diary, and Zjxr-inbp-[id number] screening survey / [x]Initial Goal [] Progressing to Goal [] Not Meeting--Needs Reinforcement [] Goal Met [] Goal Not Met To have patient demonstrate knowledge about risk factor reduction, lifestyle modification, and heart health strategies with > / = 80% accuracy via pre- and post-program Test your Heart Health Knowledge?? screening tool / [x] Initial Goal [] Progressing to Goal [] Not Meeting--Needs Reinforcement [] Goal Met [] Goal Not Met Cosigned by Jordan Mcghee MD at 12/28/2024 2:37 PM EDT * 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 RN - 12/28/2024 10:00 AM EDT Cardiac Rehabilitation Physician Order Form Tammy Mac 1980 [id number] 12/28/2024 [x] Phase 2 ECG Monitored Cardiac Rehabilitation [] ND [] Percutaneous Coronary Intervention [] Other: [] CABG [] Heart Valve Repair/Replaced [] Stable Angina [] Heart Failure: Onset Date: 09/27/24 / REFERRAL BY: DR. CHIU Cardiac Education Goals: (see individualized treatment plan for specific goals, progression & compliance) [x] Hypertension [x] Physical Inactivity [x] Cardiac A&P [] Heart Failure [x] Medications [x] Coping w/ Anxiety / Depression [] Diabetes [x] Weight Management [x] Angina [x] Hyperlipidemia [x] Home Exercise [x] Stress Reduction and Relaxation [x] Medications [x] Smoking Cessation Prescribed Exercise Plan: Target Hr: 96-108 Duration: 31 - 60 Minutes Frequency: 3 Days per week Initial Met Level: 5.5-6 Limitations: [x] Back Pain Where? CHRONIC-INTERMITTENT LBP & CERVICAL SPINE DISCOMFORT & RTARM PAIN SHARP-SORE Modalities: [x]Treadmill [x] UBE [x] Seated Stepper [x] Rowing Machine [x] Weights/therabands [] Total Body Ergometer Aerobic exercise to total 31-60 minutes. Progressing by 1-2 minutes per week and/or 1-2 levels per week per patient tolerance using various modalities; according to Taco Scale 12-16 and THR Introduce 8-12 bilateral UE and LE progressive resistance exercises at 1-3 sets per lift, on 2-3 non-consecutive days using weights/ GREEN therabands AND WTS TO 8-24 # for 8-15 reps to progressive overload by increasing resistance once reps progressed to at least 15 reps on at least 2 occasions Per patient symptoms use: Appropriate ACLS Algorhythm for Cardiac Events. Nitroglycerine 0.4mg SLq 5mins X 3 for angina pain. 12 lead EKG for c/o chest pain or change in rhythm. Nasal O2 for SaO2 <90% or symptoms warranted. Blood sugar monitoring for Hyper/Hypoglycemia symptoms. Cardiac Rehab Staff Cosigned by Jordan Mcghee MD at 12/28/2024 2:37 PM EDT documented in this encounter Plan of Treatment Upcoming Encounters Date Type Department Care Team (Late st Contact Info) Description 01/04/2025 10:00 AM EDT Appointment [facility] [address] [place] [address] 01/08/2025 10:00 AM EDT Appointment [facility] [address] [facility] [place] [address] 01/09/2025 10:00 AM EDT Appointment [facility] [address] [place] [address] 01/11/2025 10:00 AM EDT Appointment [facility] [address] [facility] [place] [address] 01/15/2025 10:00 AM EDT Appointment [facility] [address] [facility] [place] [address] 01/16/2025 10:00 AM EDT Appointment [facility] [address] [facility] [place] [address] 01/18/2025 10:00 AM EDT Appointment [facility] [address] [facility] [place] [address] 01/22/2025 10:00 AM EDT Appointment [facility] [address] [place] [address] 01/23/2025 10:00 AM EDT Appointment [facility] [address] [place] [address] 01/25/2025 10:00 AM EDT Appointment [facility] [address] [place] [address] 01/29/2025 10:00 AM EDT Appointment [facility] [address] [place] [address] 01/30/2025 10:00 AM EDT Appointment [facility] [address] [place] [address] 02/01/2025 10:00 AM EDT Appointment [facility] [address] [place] [address] 02/05/2025 10:00 AM EDT Appointment [facility] [address] [place] [address] 02/06/2025 10:00 AM EDT Appointment [facility] [address] [place] [address] 02/08/2025 10:00 AM EDT Appointment [facility] [address] [facility] [place] [address] 02/12/2025 10:00 AM EDT Appointment [facility] [address] [facility] [place] [address] 02/13/2025 10:00 AM EDT Appointment [facility] [address] [facility] [place] [address] 02/15/2025 10:00 AM EDT Appointment [facility] [address] [facility] [place] [address] 02/19/2025 10:00 AM EDT Appointment [facility] [address] [facility] [place] [address] 02/20/2025 10:00 AM EDT Appointment [facility] [address] [facility] [place] [address] 02/22/2025 10:00 AM EDT Appointment [facility] [address] [facility] [place] [address] 02/26/2025 10:00 AM EDT Appointment [facility] [address] [facility] [place] [address] 02/27/2025 10:00 AM EDT Appointment [facility] [address] [facility] [place] [address] 03/01/2025 10:00 AM EDT Appointment [facility] [address] [facility] [place] [address] 03/05/2025 10:00 AM EDT Appointment [facility] [address] [place] [address] 03/06/2025 10:00 AM EDT Appointment [facility] [address] [facility] [place] [address] 03/08/2025 10:00 AM EDT Appointment [facility] [address] [place] [address] 03/12/2025 10:00 AM EDT Appointment [facility] [address] [place] [address] 03/13/2025 10:00 AM EDT Appointment [facility] [address] [facility] [place] [address] 03/15/2025 10:00 AM EDT Appointment [facility] [address] [place] [address] 03/19/2025 10:00 AM EDT Appointment [facility] [address] [place] [address] 03/20/2025 10:00 AM EDT Appointment [facility] [address] [place] [address] 03/22/2025 10:00 AM EDT Appointment [facility] [address] [facility] [place] [address] 03/26/2025 10:00 AM EDT Appointment [facility] [address] [facility] [place] [address] 03/27/2025 10:00 AM EDT Appointment [facility] [address] [facility] [place] [address] 03/29/2025 10:00 AM EDT Appointment [facility] [address] [place] [address] 04/02/2025 10:00 AM EDT Appointment [facility] [address] [place] [address] 04/03/2025 10:00 AM EDT Appointment [facility] [address] [facility] [place] [address] 04/05/2025 10:00 AM EDT Appointment [facility] [address] [place] [address] 04/09/2025 10:00 AM EDT Appointment [facility] [address] [facility] [place] [address] 04/10/2025 10:00 AM EDT Appointment [facility] [address] [place] [address] 04/12/2025 10:00 AM EDT Appointment [facility] [address] [place] [address] 04/16/2025 10:00 AM EST Appointment [facility] [address] [place] [address] Scheduled Orders Name Type Priority Associated Diagnoses Orde r Schedule CARDIAC PHASE II Card Rehab One Time for 1 Occurrences starting 12/28/2024 until 12/28/2024 documented as of this encounter Visit Diagnoses Not on filedocumented in this encounter Care Teams Major Donor Coordinator Relationship Specialty Start Date End Date Abhay Moreno MD [address] [place] [address] PCP - General 10/13/12 documented as of this encounter
--- OUTSIDE RECORDS SUMMARY | 2024-12-28 10:11 | XMS_ITS ---
Author Organization [facility] [place] Address [address] [place] [address] Care Team Providers Care Compliance Technician Name Role Phone Giovanny Moreno Primary Care Provider REASON FOR VISIT Xanax refill Medications Medication SIG (Take, Route, Fr equency, Duration) Notes Start Date End Date Status ALPRAZolam 0.25 MG 1 tablet Orally tid for 14 days F41.9 12/28/2024 Active Encounters Encounter Location Date Provider Diagnosis [facility] [address] [place] [address] 12/28/2024 Giovanny Moreno Plan Of Treatment Medication Medication Name Sig Start Date Stop Date Notes ALPRAZolam 0.25 MG 1 tablet Orally tid for 14 days 025 Progress Notes * Tammy AQUINO MDOB :1980 (44 yo F)Acc No.[id number]:12/28/2024 Patient: Tacos RUBYTERESETammy OCASIO :1980 A ge:44 Y S ex:Female Address:[address] [place] [address] * Refills Refill ALPRAZolam Tablet, 0.25 MG, Orally, 42 Tablet, 1 tablet, tid, 14 days, Refills=0 * true * Date: Generated for Leathai taco/Indiag/eTransmitting on: 0 01/02/2025 12:54 PM EDT
--- OUTSIDE RECORDS SUMMARY | 2025-01-01 10:00 | XMS_ITS | Encounter Summary ---
Author Organization [facility] Address [address], [address] [place] [address] Care Team Providers Care Vinyl Welder And Fabricator Name Role Phone Abhay Moreno MD Primary Care Provider [phone] Encounter Details Date Type Department Care Team (Latest Contact Info) Description 01/01/2025 10:00 AM EDT - 01/01/2025 11:59 PM EDT Hospital Encounter [facility] [address] [place] [phone] Arrived Discharge Disposition: Home or Self Care Social [...] Info) Description 01/04/2025 10:00 AM EDT Appointment [facility] [address] [facility] [place] [address] 01/08/2025 10:00 AM EDT Appointment [facility] [address] [facility] [address] 01/09/2025 10:00 AM EDT Appointment [facility] [address] [facility] [address] 01/11/2025 10:00 AM EDT Appointment [facility] [address] [facility] [address] 01/15/2025 10:00 AM EDT Appointment [facility] [address] [facility] [address] 01/16/2025 10:00 AM EDT Appointment [facility] [address] [place] [address] 01/18/2025 10:00 AM EDT Appointment [facility] [address] [place] [address] 01/22/2025 10:00 AM EDT Appointment [facility] [address] [place] [address] 01/23/2025 10:00 AM EDT Appointment [facility] [address] [place] [address] 01/25/2025 10:00 AM EDT Appointment [facility] [address] [place] [address] 01/29/2025 10:00 AM EDT Appointment [facility] [address] [place] [address] 01/30/2025 10:00 AM EDT Appointment [facility] [address] [place] [address] 02/01/2025 10:00 AM EDT Appointment [facility] [address] [place] [address] 02/05/2025 10:00 AM EDT Appointment [facility] [address] [place] [address] 02/06/2025 10:00 AM EDT Appointment [facility] [address] [place] [address] 02/08/2025 10:00 AM EDT Appointment [facility] [address] [place] [address] 02/12/2025 10:00 AM EDT Appointment [facility] [address] [place] [address] 02/13/2025 10:00 AM EDT Appointment [facility] [address] [place] [address] 02/15/2025 10:00 AM EDT Appointment [facility] [address] [place] [address] 02/19/2025 10:00 AM EDT Appointment [facility] [address] [place] [address] 02/20/2025 10:00 AM EDT Appointment [facility] [address] [place] [address] 02/22/2025 10:00 AM EDT Appointment [facility] [address] [place] [address] 02/26/2025 10:00 AM EDT Appointment [facility] [address] [place] [address] 02/27/2025 10:00 AM EDT Appointment [facility] [address] [address] 03/01/2025 10:00 AM EDT Appointment [facility] [address] [place] [address] 03/05/2025 10:00 AM EDT Appointment [facility] [address] [address] 03/06/2025 10:00 AM EDT Appointment [facility] [address] [place] [address] 03/08/2025 10:00 AM EDT Appointment [facility] [address] [address] 03/12/2025 10:00 AM EDT Appointment [facility] [address] [place] [address] 03/13/2025 10:00 AM EDT Appointment [facility] [address] [place] [address] 03/15/2025 10:00 AM EDT Appointment [facility] [address] [address] 03/19/2025 10:00 AM EDT Appointment [facility] [address] [place] [address] 03/20/2025 10:00 AM EDT Appointment [facility] [address] [place] [address] 03/22/2025 10:00 AM EDT Appointment [facility] [address] [place] [address] 03/26/2025 10:00 AM EDT Appointment [facility] [address] [place] [address] 03/27/2025 10:00 AM EDT Appointment [facility] [address] [place] [address] 03/29/2025 10:00 AM EDT Appointment [facility] [address] [place] [address] 04/02/2025 10:00 AM EDT Appointment [facility] [address] [place] [address] 04/03/2025 10:00 AM EDT Appointment [facility] [address] [place] [address] 04/05/2025 10:00 AM EDT Appointment [facility] [address] [place] [address] 04/09/2025 10:00 AM EDT Appointment [facility] [address] [place] [address] 04/10/2025 10:00 AM EDT Appointment [facility] [address] [place] [address] 04/12/2025 10:00 AM EDT Appointment [facility] [address] [place] [address] 04/16/2025 10:00 AM EST Appointment [facility] [address] [place] [address] documented as of this encounter Visit Diagnoses Not on filedocumented in this encounter Care Teams Vinyl Welder And Fabricator Relationship Specialty Start Date End Date Abhay Moreno MD [address] [place] [address] PCP - General 10/13/12 documented as of this encounter
--- OUTSIDE RECORDS SUMMARY | 2025-01-02 10:00 | XMS_ITS | Encounter Summary ---
Author Organization [facility] Address [address], [address] [place] [address] Care Team Providers Care Blade Groover Name Role Phone Abhay Moreno MD Primary Care Provider [phone] Encounter Details Date Type Department Care Team ([facility] Contact Info) Description 01/02/2025 10:00 AM EDT Hospital Encounter [facility] [address] [place] [address] Arrived Social History Tobacco Use Types Packs/Day [...] Upcoming Encounters Date Type Department Care Team ([facility] Contact Info) Description 01/04/2025 10:00 AM EDT Appointment [facility] [address] [place] [address] 01/08/2025 10:00 AM EDT Appointment [facility] [address] [place] [address] 01/09/2025 10:00 AM EDT Appointment [facility] [address] [place] [address] 01/11/2025 10:00 AM EDT Appointment [facility] [address] [place] [address] 01/15/2025 10:00 AM EDT Appointment [facility] [address] [place] [address] 01/16/2025 10:00 AM EDT Appointment [facility] [address] [place] [address] 01/18/2025 10:00 AM EDT Appointment [facility] [address] [place] [address] 01/22/2025 10:00 AM EDT Appointment [facility] [address] [address] 01/23/2025 10:00 AM EDT Appointment [facility] [address] [place] [address] 01/25/2025 10:00 AM EDT Appointment [facility] [address] [place] [address] 01/29/2025 10:00 AM EDT Appointment [facility] [address] [place] [address] 01/30/2025 10:00 AM EDT Appointment [facility] [address] [address] 02/01/2025 10:00 AM EDT Appointment [facility] [address] [address] 02/05/2025 10:00 AM EDT Appointment [facility] [address] [place] [address] 02/06/2025 10:00 AM EDT Appointment [facility] [address] [place] [address] 02/08/2025 10:00 AM EDT Appointment [facility] [address] [place] [address] 02/12/2025 10:00 AM EDT Appointment [facility] [address] [place] [address] 02/13/2025 10:00 AM EDT Appointment [facility] [address] [place] [address] 02/15/2025 10:00 AM EDT Appointment [facility] [address] [place] [address] 02/19/2025 10:00 AM EDT Appointment [facility] [address] [place] [address] 02/20/2025 10:00 AM EDT Appointment [facility] [address] [place] [address] 02/22/2025 10:00 AM EDT Appointment [facility] [address] [place] [address] 02/26/2025 10:00 AM EDT Appointment [facility] [address] [place] [address] 02/27/2025 10:00 AM EDT Appointment [facility] [address] [place] [address] 03/01/2025 10:00 AM EDT Appointment [facility] [address] [place] [address] 03/05/2025 10:00 AM EDT Appointment [facility] [address] [place] [address] 03/06/2025 10:00 AM EDT Appointment [facility] [address] [place] [address] 03/08/2025 10:00 AM EDT Appointment [facility] [address] [place] [address] 03/12/2025 10:00 AM EDT Appointment [facility] [address] [place] [address] 03/13/2025 10:00 AM EDT Appointment [facility] [address] [place] [address] 03/15/2025 10:00 AM EDT Appointment [facility] [address] [place] [address] 03/19/2025 10:00 AM EDT Appointment [facility] [address] [place] [address] 03/20/2025 10:00 AM EDT Appointment [facility] [address] [place] [address] 03/22/2025 10:00 AM EDT Appointment [facility] [address] [place] [address] 03/26/2025 10:00 AM EDT Appointment [facility] [address] [place] [address] 03/27/2025 10:00 AM EDT Appointment [facility] [address] [place] [address] 03/29/2025 10:00 AM EDT Appointment [facility] [address] [place] [address] 04/02/2025 10:00 AM EDT Appointment [facility] [address] [place] [address] 04/03/2025 10:00 AM EDT Appointment [facility] [address] [place] [address] 04/05/2025 10:00 AM EDT Appointment [facility] [address] [place] [address] 04/09/2025 10:00 AM EDT Appointment [facility] [address] [place] [address] 04/10/2025 10:00 AM EDT Appointment [facility] [address] [place] [address] 04/12/2025 10:00 AM EDT Appointment [facility] [address] [place] [address] 04/16/2025 10:00 AM EST Appointment [facility] [address] [place] [address] documented as of this encounter Visit Diagnoses Not on filedocumented in this encounter Care Teams Blade Groover Relationship Specialty Start Date End Date Abhay Moreno MD [address] [place] [address] PCP - General 10/13/12 documented as of this encounter
--- NOTE | 2025-01-02 12:54 | MR_ITS ---
[address] [address] Patient Name: NAHUM SEGOVIA MRN: [id number] date: 1980 Sex: F Assigned Patient Location: MRI Current Patient Location: MRI Accession/Order Number: [id number] Exam Date: 01/02/2025 14:02 Report Date: 01/02/2025 14:18 At the request of: NON-STAFF PHYSICIAN Procedure: MR cervical spine wo con EXAMINATION: MRI OF THE CERVICAL SPINE WITHOUT CONTRAST CLINICAL DATA: spinal stenosis chronic cervical spine pain TECHNIQUE: Multiecho imaging was performed in the sagittal and axial plane without contrast administration. FINDINGS: The craniocervical junction is maintained. The cervical cord demonstrates normal signal and morphology. Cervical vertebral heights, alignment and bone marrow signal is unremarkable. Minimal intervertebral space narrowing C4-C7. C2-C3: Mild to moderate facet arthropathy. Minor left facet arthropathy. Canal and foramina patent. No definite disc disease C3-C4: Minor uncovertebral spurring. No significant foraminal or canal narrowing C4-C5: Broad-based disc bulge with uncovertebral spurring. Moderate bilateral neural from narrowing. Minimal central canal narrowing.. C5-6: Broad-based disc bulge and intervertebral spurring identified. There is [id number] bilateral neural foraminal narrowing. Mild canal narrowing. C6-C7: Broad disc bulge with minimal uncovertebral spurring. Mild right and minimal left neural from narrowing. Canal is patent. C7-T1: Mild facet arthropathy. No significant disc disease central canal or neural foraminal narrowing identified. MR/MR cervical spine wo con IMPRESSION: Overall mild degenerative changes notably from C4-C7. IMPRESSION: Impression dictated by: Maged Raphael M.D. 01/02/2025 2:18 PM Dictation Location: [facility] Electronically authenticated by: [id number] Date: 01/02/2025 14:18
--- OUTSIDE RECORDS SUMMARY | 2025-01-02 12:54 | XMS_ITS | Clinical Summary ---
Author Organization [facility] Address [address] [place] [address] Care Team Providers Care Computing Tutor Name Role Phone Abhay Moreno MD Primary Care Provider [phone] Linda Pastrana MD Unavailable [phone] Allergies Active Allergy Reactions Criticality Noted [...] reaction(s): other Prednisone Swelling High 06/05/2016 Medications ALPRAZolam (Xanax) 0.5 mg tablet 0.5 mg if needed in the morning and at bedtime. 4 Active cholecalciferol , vitamin D3, 50 mcg (2,000 unit) capsule Take 1 capsule by mouth in the morning. 4 Active meclizine 25 mg tablet,chewable every 12 (twelve) hours. Active predniSONE (Deltasone) 20 mg tablet 1 (one) time each day at the same time. Active tamsulosin (Flomax) 0.4 mg 24 hr capsule 1 capsule 1 (one) time each day at the same time. Active tiZANidine (Zanaflex) 4 mg tablet 4 mg if needed in the morning, at noon, and at bedtime. 4 Active valACYclovir (Valtrex) 1 gram tablet 1 (one) time each day at the same time. Active triamcinolone (Kenalog) 0.1 % cream 1 Application. Activ e aspirin 81 mg chewable tabletIndicatio ns:Acute systolic congestive heart failure (CMS/HCC) Chew 1 tablet (81 mg) in the morning. 90 tablet 3 5 09/30/19 26 Active losartan (Cozaar) 50 mg tabletIndicatio ns:Acute systolic congestive heart failure (CMS/HCC) Take 1 tablet (50 mg) by mouth in the morning. 90 tablet 3 5 09/30/19 26 Active diazePAM (Valium) 5 mg tablet Take 5 mg by mouth 1 (one) time. Active metoprolol succinate XL (Toprol-XL) 50 mg 24 hr tabletIndicatio ns:Chronic systolic congestive heart failure (CMS/HCC) Take 1 tablet (50 mg) by mouth in the morning. Do not crush or chew. 90 tablet 3 5 10/31/19 26 Active spironolactone (Aldactone) 25 mg tabletIndicatio ns:Chronic systolic congestive heart failure (CMS/HCC) Take 0.5 tablets (12.5 mg) by mouth in the morning. 45 tablet 3 5 10/31/19 26 Active Additional Information Patient taking differently: 50 mgoral Daily, Reported on 11/16/2024 Active Problems Problem Noted Date Diagnosed Date [...] Encounters Date Type Department Care Team Description 12/26/2024 Telephone [facility]acic [facility] [place] [address] [place] [address] Lashay Parikh MA MRI 12/20/2024 Orders Only [facility] [address] [place] [address] Yaa Quintanilla MA Chronic systolic heart failure (CMS/HCC) (Primary Dx) 12/14/2024 Telephone [facility] [address] [place] [address] Yaa Quintanilla MA 12/05/2024 Telephone [facility] Cardiothoracic [facility] [address] [place] [address] Abbey Carney, RN follow up 11/29/2024 Orders Only [facility] [address] [place] [phone] Abbey Carney RN 11/29/2024 - 11/29/2024 11:59 PM EDT Hospital Encounter [facility] Radiology External Films [address] [place] [phone] Discharge Disposition: Home or Self Care () 11/27/2024 Telephone [facility] [address] [place] [address] Abbey Carney, RN Follow up 11/23/2024 Telephone [facility] [address] [place] [address] Lashay Parikh MA Other 11/21/2024 Telephone [facility] [place] [address] [place] [address] Abbey Carney, exceptional children's teacher Update 11/20/2024 Telephone [facility]or[facility] [place] [address] [place] [address] Abbey Carney, TOBI Follow Up 11/20/2024 Orders Only [facility] Pre-Anesthesia Clinic [address] [place] [address] Cyndi Bedoya RN 11/20/2024 Travel 11/17/2024 Abstract [facility] Cardioth[facility]acic Surgery [place] [address] [place] [address] Abbey Carney RN 11/17/2024 Telephone [facility] Cardiothoracic Surgery [place] [address] [place] [phone] Abbey Carney, TOBI Pre-op Instructions 11/16/2024 3:00 PM EDT Consult [facility] Cardiothoracic [facility] [address] [place] [address] Alexa Macias, GROUP TESTER Pericardial cyst (Primary Dx); Acute systolic congestive heart failure (CMS/HCC); Syncope, unspecified syncope type; Crohn's disease with complication, unspecified gastrointestinal tract location (CMS/HCC) 11/13/2024 Orders Only [facility] Cardiothoracic Surgery [place] [address] [place] [address] Abbey Carney, TOBI Pre-op testing; Hypothyroidism, unspecified type; Pericardial cyst; Acute systolic congestive heart failure (CMS/HCC); Abnormal finding of blood chemistry, unspecified 2024 Orders Only [facility] Cardiothoracic [facility] [address] [place] [address] Abbey Carney RN Pericardial cyst 11/09/2024 Telephone [facility] [address] [place] [address] Yaa Quintanilla MA 11/08/2024 8:41 AM EDT - 11/08/2024 11:59 PM EDT Hospital Encounter [facility] Pulmonary Function Testing [address] [facility] 3rd [place] [address] Pre-op testing Discharge Disposition: Home or Self Care () 11/03/2024 Orders Only [facility] [address] [place] [address] Abbey Carney RN Pre-op testing 10/30/2024 2:30 PM EDT Follow-Up [address] [address] Chintan Ragland MD Chronic systolic congestive heart failure (CMS/HCC) (Primary Dx); Pericardial cyst; Noncompaction cardiomyopathy (CMS/HCC) 10/26/2024 Telephone [facility] [address] [place] [address] Yaa Quintanilla MA 10/20/2024 10:00 AM EDT - 10/20/2024 11:00 AM EDT Surgery [facility] [place] [facility] [address] [place] [address] Chintan Ragland MD Coronary angiography [69104 (CPT )] 10/20/2024 8:42 AM EDT - 10/20/2024 2:33 PM EDT Hospital Encounter [facility] [place] [facility] [address] [place] [address] Chintan Ragland MD Acute systolic congestive heart failure (CMS/HCC); Shortness of breath; Abnormal findings on diagnostic imaging of heart and coronary circulation Discharge Disposition: Home or Self Care () 10/20/2024 Travel 10/19/2024 3:00 PM EDT Consult [facility] Cardiothoracic [facility] [place] [address] [place] [address] Seng Rosado MD Pericardial cyst (Primary Dx); Acute systolic congestive heart failure (CMS/HCC) 10/18/2024 Travel 10/10/2024 12:05 AM EDT - 10/10/2024 11:59 PM EDT Hospital Encounter [facility] Radiology External Films [address] [place] [address] Discharge Disposition: Home or Self Care () 10/10/2024 - 10/10/2024 12:04 AM EDT Hospital Encounter [facility] Radiology External Films [address] [place] [address] Discharge Disposition: Home or Self Care () 10/03/2024 - 10/03/2024 11:59 PM EDT Hospital Encounter [facility] Radiology External Films [address] [place] [address] Discharge Disposition: Home or Self Care () 10/03/2024 Telephone [facility] Cardioth[facility] [place] [address] [place] [address] Lashay Parikh MA Other from Last 3 Months Immunizations Immunization Administration Dates Next Due DTaP, Unspecified 01/10/1979 [...] Care Team (Late st Contact Info) Description 01/22/2025 9:45 AM EDT Office Visit [facility] [address] [place] [address] Chintan Ragland MD [address] [facility] [facility] [address] [place] [address] Health Maintenance Due Date Last Done Comments CT Colonography 1978 FIT-DNA 1978 FIT 1978 FOBT 1978 Sigmoidoscopy 1978 IPV Vaccines (2 of 3 - 4-dose series) 03/13/1979 01/10/1979 Hepatitis B Vaccines (1 of 3 - 19+ 3-dose series) 1997 Pneumococcal Vaccine: Pediatrics (0 to 5 Years) and At-Risk Patients (6 to 64 Years) (1 of 2 - PCV) 1997 Adult Tetanus 2000 HPV/Cotest 2008 Colonoscopy 05/20/2021 05/20/2011 Colorectal Cancer Screening 05/20/2021 COVID-19 Vaccine ( season) 2024 Influenza Vaccine (#1) 2025 Mammogram 05/04/2025 05/04/2023, 04/14, 03/26/2023, Additional [...] Procedure Name Priority Date/Time Associated Diagnosis Comments MR TRANSFER OF OUTSIDE FILMS Routine 11/29/2024 12:00 AM EDT HC DIFFUSING CAPACITY - CARBON MONOXIDE DIFFUSING [...] OUTSIDE FILMS Routine 10/03/2024 12:00 AM EDT BI MAMMOGRAM SCREENING TOMOSYNTHESIS BILATERAL Routine 01/04/2015 from Last 3 Months or Most Recently Relevant to Health Maintenance Results * MR transfer of outside films (11/29/2024 12:00 AM EDT) Narrative IMAGING - 11/29/2024 9:31 AM EDT This order has been auto-finalized and does not contain a result. us Seng Rosado MD IMG MRI PROCEDURES Final Resul t IMAGING * Pulmonary function testing (11/08/2024 3:31 PM [...] Clinical and radiographic correlation is recommended. Mike oCley MD Pulmonary Disease & Critical Care Medicine 7:33 PM 11/08/24 Seng Rosado MD PFT ORDERABLES Final Result * CORONARY ANGIOGRAPHY, RIGHT HEART CATH (10/20/2024 [...] informed consent. she was brought to the tutorial laboratory supervisor in a fasting state. The right neck area was prepped and draped in usual fashion. Micropuncture technique was used for access under ultrasound guidance into the right internal jugular vein. A 6-Chinese x 11 cm sheath was placed. The right wrist area was prepped and draped in usual fashion. Micropuncture technique was used for access in the right radial artery. A 5-Chinese x 11 cm sheath was placed. Verapamil was given through the sheath, and heparin was administered intravenously. A 6-Chinese Ayala catheter was used for right heart catheterization and measurement of pressures and calculation of cardiac output using the estimated Lukas method. Ayala catheter was removed. Bilateral selective coronary angiography was then performed using 5-Chinese JL3.5 and JR5 diagnostic catheters. Catheters were [...] imaging of heart and coronary circulation [R93.1] us Chintan Ragland MD CV CARDIAC CATH PROCEDURES F inal Result * (ABNORMAL) POC Hb02% (10/20/2024 12:00 PM EDT) GGLBDB80% 71.4(A) 90 - 95 % QC Pass/Fail Passed QC LOT # [id number] QC Expiration Date 73,126 SAMPLESITE nl Blood Venous blood specimen / Unknown 10/20/2024 12:00 PM EDT Narrative Hal PolancoEVELIA - 10/23/2024 5:49 AM EDT Reinsurance Claims Analyst [phone] us Chintan Ragland MD POINT OF CARE TEST ENTER/ALVARO T ORDERABLES Final Result * ECG 12 lead (10/20/2024 9:25 AM EDT) Ventricular Rate 90 BPM GE MUSE Atrial Rate 90 BPM GE MUSE FL Interval 128 ms GE MUSE QRS DURATION 76 ms GE MUSE QT Interval 364 ms GE MUSE QTC CALCULATION(BAZE TT) 445 ms GE MUSE P [place] 76 degrees GE MUSE R-[place] 40 degrees GE MUSE T Wave [place] 44 degrees GE MUSE 10/20/2024 9:18 AM EDT 10/20/2024 9:37 AM EDT Impressions GE MUSE - 10/20/2024 9:38 AM EDT Normal sinus rhythm Normal ECG No previous ECGs available Confirmed by Vance WEISS SAMER J. ([id number]) on 10/20/2024 9:37:59 AM Narrative Procedure Note Kimmie Weiss MD - 10/20/2024 IMPRESSION: Normal sinus rhythm Normal ECG No previous ECGs available Confirmed by Vnace WEISS SAMER J. ([id number]) on 10/20/2024 9:37:59 AM us Chintan Ragland MD ECG ORDERABLES Final Result GE MUSE * POCT , urine manually resulted (10/20/2024 9:05 AM EDT) Preg Test, Ur Negative QC Pass/Fail Passed QC LOT # [id number] QC Expiration Date 07/30/2025 Urine 10/20/2024 9:05 AM EDT us Chintan Ragland MD POINT OF CARE TEST ENTER/ALVARO T ORDERABLES Final Result * CT transfer of outside films (10/10/2024 12:05 AM EDT) Narrative IMAGING - 10/10/2024 12:25 PM EDT This order has been auto-finalized and does not contain a result. Seng Rosado MD IMG CT PROCEDURES Final Result Performing Organization Address [facility]/ZIP Co de Phone Number IMAGING * XR transfer of outside films (10/10/2024 12:00 AM EDT) Narrative IMAGING - 10/10/2024 12:25 PM EDT This order has been auto-finalized and does not contain a result. Seng Rosado MD IMG XR PROCEDURES Final Result Performing Organization Address [facility] Co de Phone Number IMAGING * US transfer of outside films (10/03/2024 12:00 AM EDT) Narrative IMAGING - 10/03/2024 12:51 PM EDT This order has been auto-finalized and does not contain a result. Seng Rosado MD IMG US PROCEDURES Final Result Performing Organization Address [facility] Phone Number [facility] * Bilateral screening mammogram with tomosynthesis (01/04/2015) Anatomical Region Laterality Modality Breast Bilateral Mammography Historical Provider IMShakir BI PROCEDURES Final R esult from Last 3 Months or Most Recently Relevant to Health Maintenance Insurance [facility] Care Teams Computing Tutor Relationship Specialty Start Date End Date Abhay Moreno MD [address] [facility] [address] [address] PCP - General 07/14/23 Linda Pastrana MD [address] [place] [address] Consulting Physician Hematology and Oncology 07/14/23
--- OUTSIDE RECORDS SUMMARY | 2025-01-02 12:54 | XMS_ITS | Clinical Summary ---
Author Organization [facility] Address [address] [place] [address] Care Team Providers Care Ornamental Metal Worker Name Role Phone Abhay Moreno MD Primary Care Provider [phone] Quynh Bishop CNM Unavailable [phone] Social History Tobacco Use Types Packs/Day [...] DISCUSSION 03/26/2024 03/26/2023, 03/26/2023, 02/10/2013 INFLUENZA VACCINE (#1) 2025 PNEUMOCOCCAL VACCINE SERIES Aged Out No longer [...] was sent from an outside facility to [facility] for support of clinical care of the patient within the [facility]. Procedure Note [facility] Outside Orders, External Images - 05/03/2023 Outside Imaging Study for Support of Clinical Care. This study was sentfrom an outside facility to [facility] for support of clinical care of thepatient within the [facility] system. Jeanette Schilling Syed [employer] COMPLIANCE ANALYST BREAST IMAGING Final Re sult RADIOLOGY from Last 3 Months or Most Recently Relevant to Health Maintenance [facility] Care Teams Ornamental Metal Worker Relationship Specialty Start Date End Date Abhay Moreno MD PCP - General Family Medicine 04/30/23 Quynh Bishop CNM [address] [place] [address] [address] [place] [address] Certified Nurse Primary Care Nurse Practitioner 04/30/23
--- OUTSIDE RECORDS SUMMARY | 2025-01-02 12:54 | XMS_ITS | Clinical Summary ---
Author Organization [facility] Address [address], [address] [place] [address] Care Team Providers Care Program Advisor Name Role Phone Abhay Moreno MD Primary Care Provider [phone] Allergies Active Allergy Reactions Criticality Noted Date [...] Take 1 tablet by mouth daily 09/29/2024 6 Active losartan (COZAAR) 50 MG tablet Take 1 tablet by mouth daily 09/29/2024 6 Active metoprolol succinate (TOPROL XL) 25 MG extended release tablet Take 2 tablets by mouth daily 09/29/2024 6 Active ALPRAZolam (XANAX) 0.25 MG tablet Take 2 tablets by mouth 3 times daily as needed. 11/14/2024 Active spironolactone (ALDACTONE) 25 MG tablet Take 2 tablets by mouth at bedtime 10/30/2024 Active ketorolac (TORADOL) 10 MG tablet Take 1 tablet by mouth every 6 hours as needed for Pain 10 tablet 11/25/2024 Active meclizine (ANTIVERT) 25 MG tablet Take 1 tablet by mouth in the morning and 1 tablet in the evening. 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 Uterine leiomyoma 04/15/2023 04/15/2023 Gonorrhea 03/02/2023 Change in bowel habit 02/20/2022 04/15/2023 Gastritis, unspecified, without bleeding 022 04/15/2023 Nausea with vomiting, unspecified 02/20/2022 04/15/2023 Encounters Date Type Department Care Team Description 01/02/2025 10:00 AM EDT Hospital Encounter [facility] [address] [place] [address] Arrived 01/01/2025 10:00 AM EDT - 01/01/2025 11:59 PM EDT Hospital Encounter [facility] [address] [place] [address] Arrived Discharge Disposition: Home or Self Care 12/28/2024 9:55 AM EDT - 12/28/2024 11:59 PM EDT Hospital Encounter [facility] [address] [place] [address] 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, 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 Disposition: Home or Self Care 11/30/2024 7:54 AM EDT - 11/30/2024 11:59 PM EDT Hospital Encounter [facility] Physical Therapy [address] [place] [address] Keya Mitchell, PT Discharge Disposition: Home or Self Care 11/25/2024 12:23 PM EDT - 11/25/2024 4:44 PM EDT Emergency [facility] Emergency Department [address] [place] [address] Mina Pires MD Dyspnea, unspecified type (Primary Dx); Costochondritis Discharge Disposition: Home or Self Care 11/25/2024 Travel 11/15/2024 12:45 PM EDT - 11/17/2024 11:59 PM EDT Hospital Encounter [facility] Non-Invasive Cardiology [address] [place] [address] Syncope and collapse Discharge Disposition: Home or Self Care 11/15/2024 8:52 AM EDT - 11/15/2024 12:32 PM EDT Emergency [facility] Emergency Department [address] [place] [address] Bereket Pacheco MD TIA (transient ischemic attack) (Primary Dx); Syncope and collapse; Symptoms of dehydration; Radicular pain in left arm Discharge Disposition: Home or Self Care 11/15/2024 Travel 10/29/2024 1:15 PM EDT - 10/29/2024 3:44 PM EDT Emergency [facility] Emergency Department [address] [place] [address] Bola Miller MD Chest pain, unspecified type (Primary Dx) Discharge Disposition: Home or Self Care 10/29/2024 Travel from Last 3 Months Family History Medical History Relation Name Comments Heart Disease Maternal Grandfather Relation Name Status Comments Maternal Grandfather Social History Tobacco Use Types Packs/Day [...] Sign Reading Time Taken Comments Blood Pressure 139/74 11/25/2024 4:30 PM EDT Pulse 57 11/25/2024 4:30 PM EDT Temperature 37.1 C (98.7 F) 11/25/2024 12:27 PM EDT Respiratory Rate 17 11/25/2024 4:30 PM EDT Oxygen Saturation 100% 11/25/2024 4:30 PM EDT Inhaled Oxygen Concentration - - Weight 59 kg (130 lb) 11/25/2024 12:27 PM EDT Height 167.6 cm (5' 6 ) 11/25/2024 12:27 PM EDT Body Mass Index 20.98 11/25/2024 12:27 PM EDT Plan of Treatment Upcoming Encounters Date Type Department Care Team (Late st Contact Info) Description 01/04/2025 10:00 AM EDT Appointment [facility] [address] [place] [address] 01/08/2025 10:00 AM EDT Appointment [facility] [address] [place] [address] 01/09/2025 10:00 AM EDT Appointment [facility] [address] [place] [address] 01/11/2025 10:00 AM EDT Appointment [facility] [address] [place] [address] 01/15/2025 10:00 AM EDT Appointment [facility] [address] [place] [address] 01/16/2025 10:00 AM EDT Appointment [facility] [address] [place] [address] 01/18/2025 10:00 AM EDT Appointment [facility] [address] [place] [address] 01/22/2025 10:00 AM EDT Appointment [facility] [address] [place] [address] 01/23/2025 10:00 AM EDT Appointment [facility] [address] [place] [address] 01/25/2025 10:00 AM EDT Appointment [facility] [address] [place] [address] 01/29/2025 10:00 AM EDT Appointment [facility] [address] [place] [address] 01/30/2025 10:00 AM EDT Appointment [facility] [address] [place] [address] 02/01/2025 10:00 AM EDT Appointment [facility] [address] [address] 02/05/2025 10:00 AM EDT Appointment [facility] [address] [place] [address] 02/06/2025 10:00 AM EDT Appointment [facility] [address] [place] [address] 02/08/2025 10:00 AM EDT Appointment [facility] [address] [place] [address] 02/12/2025 10:00 AM EDT Appointment [facility] [address] [place] [address] 02/13/2025 10:00 AM EDT Appointment [facility] [address] [place] [address] 02/15/2025 10:00 AM EDT Appointment [facility] [address] [place] [address] 02/19/2025 10:00 AM EDT Appointment [facility] [address] [place] [address] 02/20/2025 10:00 AM EDT Appointment [facility] [address] [place] [address] 02/22/2025 10:00 AM EDT Appointment [facility] [address] [place] [address] 02/26/2025 10:00 AM EDT Appointment [facility] [address] [place] [address] 02/27/2025 10:00 AM EDT Appointment [facility] [address] [place] [address] 03/01/2025 10:00 AM EDT Appointment [facility] [address] [place] [address] 03/05/2025 10:00 AM EDT Appointment [facility] [address] [place] [address] 03/06/2025 10:00 AM EDT Appointment [facility] [address] [place] [address] 03/08/2025 10:00 AM EDT Appointment [facility] [address] [place] [address] 03/12/2025 10:00 AM EDT Appointment [facility] [address] [place] [address] 03/13/2025 10:00 AM EDT Appointment [facility] [address] [place] [address] 03/15/2025 10:00 AM EDT Appointment [facility] [address] [place] [address] 03/19/2025 10:00 AM EDT Appointment [facility] [address] [place] [address] 03/20/2025 10:00 AM EDT Appointment [facility] [address] [place] [address] 03/22/2025 10:00 AM EDT Appointment [facility] [address] [place] [address] 03/26/2025 10:00 AM EDT Appointment [facility] [address] [place] [address] 03/27/2025 10:00 AM EDT Appointment [facility] [address] [place] [address] 03/29/2025 10:00 AM EDT Appointment [facility] [address] [place] [address] 04/02/2025 10:00 AM EDT Appointment [facility] [address] [place] [address] 04/03/2025 10:00 AM EDT Appointment [facility] [address] [place] [address] 04/05/2025 10:00 AM EDT Appointment [facility] [address] [place] [address] 04/09/2025 10:00 AM EDT Appointment [facility] [address] [facility] [place] [address] 04/10/2025 10:00 AM EDT Appointment [facility] [address] [place] [address] 04/12/2025 10:00 AM EDT Appointment [facility] [address] [place] [address] 04/16/2025 10:00 AM EST Appointment [facility] [address] [place] [address] Health Maintenance Due Date Last Done Comments [...] 2024 Depression Screen 04/15/2024 04/15/2023 Flu vaccine (#1) 01/12/2025 Breast cancer screen 04/27/2025 04/27/2023, 03/26/2023, 02/10/2013, [...] Procedure Name Priority Date/Time Associated Diagnosis Comments EKG 12-LEAD STAT 11/25/2024 3:33 PM EDT XR CHEST PORTABLE STAT 11/25/2024 12: 55 PM EDT BRAIN NATRIURETIC PEPTIDE STAT 11/25/2024 12:47 PM EDT D-DIMER, QUANTITATIVE STAT 11/25/2024 12:47 PM EDT PROTIME-INR STAT 11/25/2024 12:47 PM EDT TROPONIN STAT 11/25/2024 12:47 PM EDT COMPREHENSIVE METABOLIC PANEL STAT 11/25/2024 12:47 PM EDT CBC WITH AUTO DIFFERENTIAL STAT 11/25/2024 12:47 PM EDT APTT STAT 11/25/2024 12:47 PM EDT EKG 12-LEAD STAT 11/25/2024 12:40 PM EDT EXTENDED CARDIAC HOLTER MONITOR 3D-7D (HOOKUP IN OFFICE) Routine 11/15/2024 12:57 PM EDT Syncope and collapse CTA HEAD NECK W CONTRAST CODE STROKE [...] 12-LEAD STAT 10/29/2024 1:23 PM EDT JODEE ZROAIDA DIGITAL DIAGNOSTIC UNILATERAL RIGHT Routine 04/27/2023 1:25 PM EST Abnormal screening mammogram FOOTBALL COACH CYTOLOGY Routine 02/26/2023 12:00 AM EDT from Last 3 Months or Most Recently Relevant to Health Maintenance Results * EKG 12 Lead (11/25/2024 3:33 PM EDT) Only the most recent of4 resultswithin the time period is included. Ventricular Rate 57 BPM [facility] RADIOLOGY Atrial Rate 57 BPM [facility] P-R Interval 126 ms [facility]IOLOG[facility] QRS Duration 84 ms [facility]IOLOG[facility] Q-T Interval 448 ms [facility] RADIOLOGY QTc Calculation (Bazett) 436 ms [facility] P Stewart 76 degrees [facility] RADI[facility] R Stewart 46 degrees [facility] RADIOLOG[facility] T Stewart 59 degrees [facility] RADIOLOGY 11/25/2024 3:33 PM EDT Narrative [facility] RADIOLOGY - 11/26/2024 7:19 AM EDT Sinus bradycardia with sinus arrhythmia Otherwise normal ECG Procedure Note Garcia Burgos MD - 11/26/2024 Sinus bradycardia with sinus arrhythmia Otherwise normal ECG us Mina Pires MD ECG ORDERABLES Final Resu lt PN [facility] RADIOLOGY * XR CHEST PORTABLE (11/25/2024 12:55 PM EDT) Only the most recent of2 resultswithin the time period is included. Anatomical Region Laterality Modality Chest Computed Radiogr aphy 11/25/2024 12:5 5 PM EDT Impressions 11/25/2024 2:28 PM EDT No acute pulmonary findings. Narrative 11/25/2024 2:28 PM EDT EXAM: XR CHEST PORTABLE HISTORY: Shortness of [...] stable and the osseous structures appear intact. Procedure Note Kiara Franco MD - 11/25/2024 EXAM: XR CHEST PORTABLE HISTORY: Shortness of breath. COMPARISON: October 29, 2024 - chest plain film; September 04, 2021 - chest CT. TECHNIQUE: A single AP upright portable view of the chest. FINDINGS: The lungs are clear of consolidations. No effusions or evidencefor pulmonary edema is seen. Obscuration of the right heart border isassociated with a pericardial cyst better delineated on the previous CT. The cardiomediastinal silhouette is stable and the osseous structures appear intact. IMPRESSION: No acute pulmonary findings. Mina Pires MD [facility] DIAGNOSTIC IMAGING ORD ERABLES Final Result * (ABNORMAL) CBC with Auto Differential (11/25/2024 12:47 PM EDT) Only the most recent of3 resultswithin the time period is included. WBC 9.7 3.5 - 11.0 k/uL 11/25/2024 12:47 PM EDT [facility] RBC 4.45 4.00 - 5.20 m/uL 11/25/2024 12:47 PM EDT [facility] Hemoglobin 14.1 12.0 - 16.0 g/dL 11/25/2024 12:47 PM EDT [email or web address] Hematocrit 40.5 36.0 - 46.0 % 11/25/2024 12:47 PM EDT [facility] MCV 91.0 80.0 - 100.0 fL 11/25/2024 12:47 PM EDT [facility] MCH 31.7 26.0 - 34.0 pg 11/25/2024 12:47 PM EDT [facility] MCHC 34.8 31.0 - 37.0 g/dL 11/25/2024 12:47 PM T [facility] RDW 12.0(L) 12.1 - 15.2 % 11/25/2024 12:47 PM [facility] Platelets 262 140 - 450 k/uL 11/25/2024 12:47 PM [facility] MPV 9.0 6.0 - 12.0 fL 11/25/2024 12:47 PM [facility] Neutrophils % 59 47 - 75 % 11/25/2024 12:47 PM [facility] Lymphocytes % 33 15 - 40 % 11/25/2024 12:47 PM T [facility] Monocytes % 8 4 - 8 % 11/25/2024 12:47 PM [email or web address] Eosinophils % 0 0 - 5 % 11/25/2024 12:47 PM [facility] Basophils % 0 0 - 2 % 11/25/2024 12:47 PM ED [facility] Immature Granulocytes % 0 0 - 5 % 11/25/2024 12:47 PM EDT [facility] Neutrophils Absolute 5.73 2.5 - 7.0 k/uL 11/25/2024 12:47 PM EDT [facility] Lymphocytes Absolute 3.15 1.00 - 4.80 k/uL 11/25/2024 12:47 PM ED [facility] Monocytes Absolute 0.75 0.00 - 1.00 k/uL 11/25/2024 12:47 PM EDT [facility] Eosinophils Absolute 0.03 0.00 - 0.40 k/uL 11/25/2024 12:47 PM EDT [facility] Basophils Absolute 0.02 0.00 - 0.20 k/uL 11/25/2024 12:47 PM EDT [facility] Immature Granulocytes Absolute 0.02 0.00 - 0.30 k/uL 11/25/2024 12:47 PM EDT [facility] Blood BLOOD SPECIMEN / Unknown 11/25/2024 12:47 PM EDT 11/25/2024 12:52 PM EDT Mina Pires MD HEMATOLOGY ORDERABLES Chacha l Result Performing Organization Address City/[facility]/ZIP Co de Phone Number [facility] [address] [phone] * Troponin (11/25/2024 12:47 PM EDT) Only the most recent of5 resultswithin the time period is included. Troponin, High Sensitivity <6 0 - 14 ng/L 11/25/2024 12:47 PM EDT [facility] Comment:High Sensitivity Tro ponin values cannot be compared with other Troponin methodologies. BLOOD SPECIMEN / Unknown 11/25/2024 12:47 PM EDT 11/25/2024 12:52 PM EDT us Mina Pires MD CHEMISTRY ORDERABLES Final Result Performing Organization Address City/[facility]/ZIP Co de Phone Number [facility] [address] [phone] * APTT (11/25/2024 12:47 PM EDT) APTT 30.2 23.9 - 33.8 sec 11/25/2024 12:47 PM EDT [facility] Comment: IV Heparin Therapy Range: 62.0-94.0 Blood BLOOD SPECIMEN / Unknown 11/25/2024 12:47 PM EDT 11/25/2024 12:52 PM EDT Mina Pires MD HEMATOLOGY ORDERABLES Chacha l Result Performing Organization Address [facility] Co de Phone Number [facility] [address] [place] [address], [facility] [phone] * Protime-INR (11/25/2024 12:47 PM EDT) Only the most recent of2 resultswithin the time period is included. [facility] Protime 14.0 11.5 - 14.2 sec 11/25/2024 12:47 PM EDT [facility] INR 1.1 11/25/2024 12:47 PM EDT [facility] Comment: Therapeutic Range: Moderate Anticoagulant Intensity: INR = 2.0-3.0 High Anticoagulant Intensity: INR = 2.5-3.5 Blood BLOOD SPECIMEN / Unknown 11/25/2024 12:47 PM EDT 11/25/2024 12:52 PM EDT Mina Pires MD HEMATOLOGY ORDERABLES Chacha l Result Performing Organization Address [facility] Co de Phone Number [facility] [address] [place] [address], [facility] [phone] * D-Dimer, Quantitative (11/25/2024 12:47 PM EDT) Only the most recent of3 resultswithin the time period is included. Pathologist [facility] D-Dimer, Quant <0.27 0.00 - 0.59 ug/mL FEU 11/25/2024 12:47 PM EDT [facility] Comment: When combined with a low [...] more prevalent in patients with distal DVT. BLOOD SPECIMEN / Unknown 11/25/2024 12:47 PM EDT 11/25/2024 12:52 PM EDT Mina Pires MD HEMATOLOGY ORDERABLES Chacha l Result Performing Organization Address [facility] Co de Phone Number [facility] [address] [facility] [phone] * Brain Natriuretic Peptide (11/25/2024 12:47 PM EDT) Only the most recent of3 resultswithin the time period is included. NT Pro-BNP 73 <300 pg/mL 11/25/2024 12:47 PM EDT [facility] Comment: An age-independent cutoff point of 300 pg/ml has a 98% negative predictive value excluding acute heart failure. Blood BLOOD SPECIMEN / Unknown 11/25/2024 12:47 PM EDT 11/25/2024 12:52 PM EDT Mina Pires MD CHEMISTRY ORDERABLES Final Result Performing Organization Address [facility] Co de Phone Number [facility] [address] [facility] [phone] * (ABNORMAL) Comprehensive Metabolic Panel (11/25/2024 12:47 PM EDT) Sodium 140 135 - 144 mmol/L 11/25/2024 12:47 PM EDT [facility] Potassium 3.8 3.7 - 5.3 mmol/L 11/25/2024 12:47 PM [facility] Chloride 109(H) 98 - 107 mmol/L 11/25/2024 12:47 PM [facility] CO2 20 20 - 31 mmol/L 11/25/2024 12:47 PM [facility] Anion Gap 11 9 - 17 mmol/L 11/25/2024 12:47 PM [facility] Glucose 104(H) 70 - 99 mg/dL 11/25/2024 12:47 PM [facility] BUN 8 6 - 20 mg/dL 11/25/2024 12:47 PM [facility] Creatinine 0.7 0.5 - 0.9 mg/dL 11/25/2024 12:47 PM [facility] Est, Glom Filt Rate >90 >60 mL/min/1.7 3m2 11/25/2024 12:47 PM [facility] Comment: These results are not intended [...] secretion. Calcium 9.3 8.6 - 10.4 mg/dL 11/25/2024 12:47 PM [facility] Total Protein 7.0 6.4 - 8.3 g/dL 11/25/2024 12:47 PM [facility] Albumin 4.5 3.5 - 5.2 g/dL 11/25/2024 12:47 PM [facility] Albumin/Globulin Ratio 1.8 1.0 - 2.5 11/25/2024 12:47 PM [facility] Total Bilirubin 0.6 0.3 - 1.2 mg/dL 11/25/2024 12:47 PM [facility] Alkaline Phosphatase 68 35 - 104 U/L 11/25/2024 12:47 PM EDT [facility] ALT 24 5 - 33 U/L 11/25/2024 12:[address] [facility] AST 17 <32 U/L 11/25/2024 12:47 PM EDT [facility] Blood BLOOD SPECIMEN / Unknown 11/25/2024 12:47 PM EDT 11/25/2024 12:52 PM EDT us Mina Pires MD CHEMISTRY ORDERABLES Final Result [facility] [address] [place] [place] [address], [facility] [phone] * EXTENDED CARDIAC HOLTER MONITOR 3D-7D (HOOKUP IN OFFICE) (11/15/2024 12:57 PM EDT) Body Surface Area 1.67 m2 [facility] CV NOWHERE Anatomical Region Laterality Modality Cardiac Diagnost ic Narrative 11/21/2024 7:22 PM EDT Patient monitored for 4d 21h, analyzable time was 4d 21h starting on 11/15/2024 12:48 pm. Primary rhythm was Sinus Rhythm. Average heart rate was 68 bpm, Minimum heart rate was 44 bpm on Day :26:27 am, Max heart rate was 122 bpm on Day :13:27 pm PVC(s): Gruetli Laager was < 0.01 %, 5 total PVC(s), 2 disparate morphologies Patient recorded 2 event(s) during the monitoring period us Bereket Pacheco MD CV CARDIAC DIAGNOSTIC ORD ERABLES Final Result * CTA HEAD NECK W CONTRAST (11/15/2024 [...] involving the neck or intracranial arterial vasculature. Bereket Pacheco MD IM CT ORDERABLES Final R esult * CT [...] IMG CT ORDERABLES Final R esult * HCG Qualitative, Serum (11/15/2024 9:00 AM EDT) Preg, Serum NEGATIVE NEGATIVE 11/15/2024 9:00 AM EDT [facility] Comment: Specimens with hCG levels near the threshold of the test (25 mIU/mL) may give a negative or indeterminate result. In such cases, another test should be performed with a new specimen in 48-72 hours. If early is suspected clinically in this setting, correlation with quantitative serum b-hCG level is suggested. [employer] has confirmed the use of plasma for this test. This has not been cleared or approved by the U.S. Food and Drug Administration. The FDA has determined that such clearance is not necessary. Blood BLOOD SPECIMEN / Unknown 11/15/2024 9:00 AM EDT 11/15/2024 9:01 AM EDT Bereket Pacheco MD CHEMISTRY ORDERABLES Chacha l Result [facility] [address] [place] [address], [facility] [phone] * (ABNORMAL) BMP (11/15/2024 9:00 AM EDT) Only the most recent of2 resultswithin the time period is included. Sodium 138 135 - 144 mmol/L 11/15/2024 9:00 AM EDT [facility] Potassium 4.4 3.7 - 5.3 mmol/L 11/15/2024 9:00 AM EDT [facility] Chloride 106 98 - 107 mmol/L 11/15/2024 9:00 AM EDT [facility] CO2 22 20 - 31 mmol/L 11/15/2024 9:00 AM EDT [facility] Anion Gap 10 9 - 17 mmol/L 11/15/2024 9:00 AM EDT [email or web address] Glucose 104(H) 70 - 99 mg/dL 11/15/2024 9:00 AM EDT [facility] BUN 11 6 - 20 mg/dL 11/15/2024 9:00 AM EDT [facility] Creatinine 0.7 0.5 - 0.9 mg/dL 11/15/2024 9:00 AM EDT [facility] Est, Glom Filt Rate >90 >60 mL/min/1.7 3m2 11/15/2024 9:00 AM EDT [facility] Comment: These results are not intended [...] - 10.4 mg/dL 11/15/2024 9:[address] Blood BLOOD SPECIMEN / Unknown 11/15/2024 9:00 AM EDT 11/15/2024 9:01 AM EDT us Bereket Pacheco MD CHEMISTRY ORDERABLES Chacha l Result Performing Organization Address City/[facility]/ZIP Co de Phone Number [facility] [address] [facility] [place] [id number], [facility] [phone] * HCG, Quantitative, (10/29/2024 1:27 PM EDT) hCG Quant <0.2 <5 mIU/mL 10/29/2024 1:27 PM EDT [facility] Comment: Non-preg premeno <=5 Postmeno <=8 Male <=3 If HCG results do not concur with clinical observations, additional testing to confirm results is recommended. BLOOD SPECIMEN / Unknown 10/29/2024 1:27 PM EDT 10/29/2024 1:57 PM EDT us Bola Miller MD CHEMISTRY ORDERABLES Final Resu lt [facility] [address] [place] [address], [facility] [phone] * (ABNORMAL) JODEE ZORAIDA DIGITAL DIAGNOSTIC UNILATERAL [...] patient. Narrative 04/27/2023 6:32 PM EST EXAM: JODEE ZORAIDA DIGITAL DIAGNOSTIC UNILATERAL RIGHT, [...] This could be performed under ultrasound guidance. Duy Mcclelland MD IMG MAMMOGRAPHY ORDERABLES Fi nal Result * FOOTBALL COACH Cytology (02/26/2023 12:00 AM EDT) Cytology Report Path Number: [id number] DIAGNOSIS Imaged ThinPrep Pap - Cervical (1 monolayer slide): Specimen Adequacy: Satisfactory for evaluation. - Endocervical/trans formation zone component present. Descriptive Diagnosis: Negative for intraepithelial lesion or malignancy. Comments: Specimen was screened at [facility], [address] [place] [address] Cytotech Screener: CS Electronically Signed Out PARMINDER Jung(ASCP) cs/03/06/2023 Source of Specimen: A: Imaged ThinPrep Pap - Cervical (1 monolayer slide) HPV Reflex?........... ...........HPV if Abnormal Clinical History Endometrial ablation Tubal ligation High risk HPV DNA testing is requested if the diagnosis is abnormal Z01.419 Routine gynecology teacher exam without abnormal findings Processing Lab: [address] [id number] [place] [address] This Pap Test has been evaluated with [...] GYNECOLOGIC CYTOLOGY REPORT Patient Name: NAHUM ROBERTS [facility] Rec: [id number] [email or web address] [facility] ANATOMIC PATHOLOGY [address] [facility]. [place], [place] [address] JUSTIN PUCKETT [employer] CERVICAL MATERIAL 02/26/2023 023 9:25 AM EDT Duy Mcclelland MD PATHOLOGY/CYTOLOGY ORDERABLES Final Result [facility] [address] [place] [address], [facility] [phone] JUSTIN ITALO [facility] from Last 3 Months or Most Recently Relevant to Health Maintenance Insurance [place] [employer] Care Teams Program Advisor Relationship Specialty Start Date End Date Abhay Moreno MD [address] [place] [address] PCP - General 10/13/12
--- OUTSIDE RECORDS SUMMARY | 2025-01-02 12:55 | XMS_ITS | Encounter Summary ---
Author Organization [facility] Address [address] [facility], [address] [place] [address] Care Team Providers Care Social Services Specialist Name Role Phone Abhay Moreno MD Primary Care Provider [phone] Reason for Referral * Imaging (Emergency) - Closed Specialty Diagnoses / Procedures Referred By Contnito t Referred To Contact Radiology Diagnoses Contusion of head, unspecified part of head, initial encounter Procedures CT HEAD WO CONTRAST Mariya Landrum APRN - NP [facility] [address] [place] [address] Phone: tel: Referral ID Status Reason Start Date Expiration Date Visits Re quested Visits Authorized [id number] Closed 01/22/2021 01/22/2022 1 1 Encounter Details Date Type Department Care Team (Latest Contact Info) Description 01/22/2021 Transcribe Orders [facility] [address] [place], [place] [id number] Mariya Landrum APRN - NP Contusion of [...] Info) Description 01/04/2025 10:00 AM EDT Appointment [facility] [address] [place] [address] 01/08/2025 10:00 AM EDT App[facility]ment [facility] [address] [facility] [place] [address] 01/09/2025 10:00 AM EDT Appointment [facility] [address] [facility] [place] [address] 01/11/2025 10:00 AM EDT Appointment [facility] [address] [facility] [place] [address] 01/15/2025 10:00 AM EDT Appointment [facility] [address] [facility] [place] [address] 01/16/2025 10:00 AM EDT Appointment [facility] [address] [facility] [place] [address] 01/18/2025 10:00 AM EDT Appointment [facility] [address] [facility] [place] [address] 01/22/2025 10:00 AM EDT Appointment [facility] [address] [facility] [place] [address] 01/23/2025 10:00 AM EDT Appointment [facility] [address] [facility] [place] [address] 01/25/2025 10:00 AM EDT Appointment [facility] [address] [facility] [place] [address] 01/29/2025 10:00 AM EDT Appointment [facility] [address] [facility] [place] [address] 01/30/2025 10:00 AM EDT Appointment [facility] [address] [facility] [place] [address] 02/01/2025 10:00 AM EDT Appointment [facility] [address] [place] [address] 02/05/2025 10:00 AM EDT Appointment [facility] [address] [facility] [place] [address] 02/06/2025 10:00 AM EDT Appointment [facility] [address] [facility] [place] [address] 02/08/2025 10:00 AM EDT Appointment [facility] [address] [place] [address] 02/12/2025 10:00 AM EDT Appointment [facility] [address] [facility] [place] [address] 02/13/2025 10:00 AM EDT Appointment [facility] [address] [place] [address] 02/15/2025 10:00 AM EDT Appointment [facility] [address] [place] [address] 02/19/2025 10:00 AM EDT Appointment [facility] [address] [place] [address] 02/20/2025 10:00 AM EDT Appointment [facility] [address] [place] [address] 02/22/2025 10:00 AM EDT Appointment [facility] [address] [place] [address] 02/26/2025 10:00 AM EDT Appointment [facility] [address] [place] [address] 02/27/2025 10:00 AM EDT Appointment [facility] [address] [facility] [place] [address] 03/01/2025 10:00 AM EDT Appointment [facility] [address] [place] [address] 03/05/2025 10:00 AM EDT Appointment [facility] [address] [place] [address] 03/06/2025 10:00 AM EDT Appointment [facility] [address] [facility] [place] [address] 03/08/2025 10:00 AM EDT Appointment [facility] [address] [place] [address] 03/12/2025 10:00 AM EDT Appointment [facility] [address] [place] [address] 03/13/2025 10:00 AM EDT Appointment [facility] [address] [facility] [place] [address] 03/15/2025 10:00 AM EDT Appointment [facility] [address] [place] [address] 03/19/2025 10:00 AM EDT Appointment [facility] [address] [facility] [place] [address] 03/20/2025 10:00 AM EDT Appointment [facility] [address] [facility] [place] [address] 03/22/2025 10:00 AM EDT Appointment [facility] [address] [facility] [place] [address] 03/26/2025 10:00 AM EDT Appointment [facility] [address] [facility] [place] [address] 03/27/2025 10:00 AM EDT Appointment [facility] [address] [facility] [place] [address] 03/29/2025 10:00 AM EDT Appointment [facility] [address] [place] [address] 04/02/2025 10:00 AM EDT Appointment [facility] [address] [facility] [place] [address] 04/03/2025 10:00 AM EDT Appointment [facility] [address] [place] [address] 04/05/2025 10:00 AM EDT Appointment [facility] [address] [place] [address] 04/09/2025 10:00 AM EDT Appointment [facility] [address] [place] [address] 04/10/2025 10:00 AM EDT Appointment [facility] [address] [place] [address] 04/12/2025 10:00 AM EDT Appointment [facility] [address] [place] [address] 04/16/2025 10:00 AM EST Appointment [facility] [address] [place] [address] documented as of this encounter Results * [...] 10, 2018. Intact calvarium and skull base. Mariya Diallo INFORMATION DELIVERY ANALYST - HVAC MAINTENANCE TECHNICIAN IMG CT ORDERABLES Final R esult documented in this encounter Visit Diagnoses Diagnosis Contusion of head, unspecified part of head, initial encounter- Primary Contusion of head, unspecified part of head, initial encounter documented in this encounter Additional Health Concerns Infection Onset Date Last Indicated Resolved Time COVID-19 (Rule Out) 09/04/2021 09/04/2021 09/05/19 22 8:39 AM EDT documented as of this encounter Care Teams Social Services Specialist Relationship Specialty Start Date End Date Abhay Moreno MD [address] [place] [address] PCP - General 10/13/12 documented as of this encounter
--- OUTSIDE RECORDS SUMMARY | 2025-01-02 12:55 | XMS_ITS | Patient Health Record ---
Author Organization [facility] in [place] Address [address] [place] [address] Care Team Providers Care Lens Generator Name Role Phone Josh Giovanny Primary Care Provider [phone] Allergies Allergen (clinical drug ingredient) Drug/Non Drug [...] PM Interpretation: Performing Lab: Notes/Report: [facility] , White Blood Count 6.5 4.0-11.0 [...] 3/uL Performing Lab: see note ML - [facility] LB FOLATE Reviewed date:08/21/2024 02:07:51 PM Interpretation: Performing Lab: Notes/Report: [facility] , Folate 10.20 8.60-58.90 ng/mL Performing Lab: see note - [facility] T4 Reviewed date:08/21/2024 02:07:51 PM Interpretation: Performing Lab: Notes/Report: [facility] , T4 Thyroxine 8.20 4.80-13.90 ug/dL Performing Lab: see note - [facility] TSH Reviewed date:08/21/2024 02:07:51 PM Interpretation: Performing Lab: Notes/Report: [facility] , Thyroid Stimulating Hormone 0.904 0.358-3.740 uIU/mL Performing Lab: see note - [facility] VITAMIN D 25 [place] Reviewed date:08/21/2024 02:07:51 PM Interpretation: Performing Lab: Notes/Report: [facility] , Vitamin D 29.9 20-<30 ng/mL Vit D insufficient <20 ng/mL Vit D deficient 30-100 ng/mL Vit D sufficient >100 ng/mL Potential Toxicity Performing Lab: see note ML - [facility] Vitamin B12 Reviewed date:08/22/2024 03:51:20 PM Interpretation: Performing Lab: Notes/Report: [facility] , Vitamin B12 [phone] pg/mL [address] [place], [place] [id number] Calculation Reviewer: Gabriel Pretty PhD, Phone: [phone] Performed at: [facility] Performing Lab: see note - [facility] CA echo doppler complete Reviewed date:09/28/2024 09:10:59 PM Interpretation: Performing Lab: Notes/Report: Source Facility: [facility]-[address] [place] [address] [place] [address] Cardiology Report Signed Patient: NAHUM SEGOVIA MR#: [id number] : 1980 Acct:[id number] Age/Sex: 43 / F ADM Date: 09/27/24 Loc: CARD Attending Dr: John Moreno M.D. Ordering Physician: John Moreno M.D. Date of Service: 09/27/24 Procedure(s): CA echo doppler complete Accession Number(s): [id number] cc: John Moreno M.D. Patient Name: NAHUM SEGOVIA MR#: [id number] : 1980 Exam Date: 09/27/2024 Ordering Doctor: DR John Moreno . ECHOCARDIOGRAM REPORT PROCEDURE: CA ECHO [...] effusion consistent with CT scan done at [facility] 08/29/2024. IVC: Collapes with inspirations. IVC is [...] Signed By: 09/27/24 1500 DD/ 1459 TD/TT: [employer]: The [address] [address] Cardiology Report Signed Patient: MICK SEGOVIA MR#: [id number] : 1980 Acct:[id number] Age/Sex: 43 / F ADM Date: 09/27/24 Loc: CARD Attending Dr: Meg Moreno M.D. Ordering Physician: John Moreno M.D. Date of Service: 09/27/24 Procedure(s): CA ech o doppler complete Accession Number(s): [id number] cc: John Moreno M.D. Patient Name: NAHUM SEGOVIA MR#: [id number] : 1980 Exam Date: 09/27/2024 Ordering Doctor: DR John Moreno . ECHOCARDIOGRAM REPORT PROCEDURE: CA ECHO DOPPLER COMPLETE INDICATIONS: Cardiac aneurysm, smoker COMPARISON: None. DESCRIPTION: COMPLET E [...] ROOT: Normal diameter and appearance. PULMONIC VALVE: Nor mal thickness and mobility. No stenosis. No regurgitation. PERICARDIUM: Free sp lorne seen along right atrium may represent pericardial cyst or localized pericardial effusion consistent with CT scan done at [facility] 08/29/2024. IVC: Collapes with inspirations. IVC is [...] (VTI): 2.34 cm2, 2.34 cm2 Peak Velocity(Antegr jorgito Flow): 1.45 m/s, 1.39 m/s Peak Gradient(Antegr jorgito Flow): 8.38 mm[Hg], 7.74 mm[Hg] Mean Velocity(Antegr jorgito Flow): 0.99 m/s, 0.95 m/s Mean Gradient(Antegr jorgito Flow): 4.50 mm[Hg], 4.15 mm[Hg] Velocity Time [...] Signed By: 09/27/24 1500 DD/ 1459 TD/TT: [employer]: CBC AUTO DIFF Reviewed date:10/16/2024 08:10:34 PM Interpretation: Performing Lab: Notes/Report: [facility] , White Blood Count 7.7 4.0-11.0 [...] 3/uL Performing Lab: see note ML - [facility] LB PROF 14(COMP METB) Reviewed date:10/16/2024 08:10:34 PM Interpretation: Performing Lab: Notes/Report: [facility] , Sodium 134 136-145 mmol/L Potassium [...] Globulin Ratio 1.2 Performing Lab: see note - [facility] Troponin I High Sensitivity Reviewed date:10/16/2024 08:10:34 PM Interpretation: Performing Lab: Notes/Report: [facility] , Troponin I High Sensitivity 4.3 4.0-51.3 pg/mL CUT-OFF POINTS HAVE BEEN ESTABLISHED BASED ON THE FOURTH PERCENTILE OF cTnI DISTRIBUTION IN A REFERENCE POPULATION, HAS BEEN CONFIRMED THE DECISION THRESHOLD FOR [place] USED IN ISOLATION BUT SHOULD BE INTERPRETED IN CONJUNCTION 99TH PERCENTILE = 51.4 PG/ML UNIVERSAL DEFINITION OF MYOCARDIAL INFARCTION. THE UPPER DIAGNOSIS. WITH OTHER DIAGNOSTIC AND CLINICAL INFORMATION. REFERENCE LIMIT (URL) OF TROPONIN, DEFINED THE 99TH NOTE: HIGH-SENSITIVITY TROPONIN ASSAY IS NOT INTENDED TO BE Performing Lab: see note - [facility] LB HCG Qualitative* Reviewed date:10/16/2024 08:10:34 PM Interpretation: Performing Lab: Notes/Report: [facility] , HCG Qualitative NEGATIVE NEGATIVE Performing Lab: see note - [facility] LB ECG 12 lead Reviewed date:10/16/2024 08:10:34 PM Interpretation: Performing Lab: Notes/Report: Source Facility: [place] [address] [place] [address] Electrocardiograph Report Draft Patient: NAHUM SEGOVIA MR#: [id number] : 1980 Acct:[id number] Age/Sex: 43 / F ADM Date: Loc: ER Attending Dr: Ordering Physician: Dafne Mendez Date of Service: 10/15/24 Procedure(s): ECG 12 lead Accession Number(s): [id number] cc: [facility] Test Date: 2024-10-15 Pat Name: NAHUM SEGOVIA Department: Room: - 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1980 Requested By: [id number] Order Number: [id number] Reading MD: Measurements Intervals [place] Rate: 73 P: 76 OK: 146 QRS: 76 QRSD: 86 T: 65 QT: 392 QTc: 418 Interpretive Statements 1100 Sinus rhythm 9110 normal ECG No previous ECG available for comparison Dictated By: Carmen Cole Signed By: DD/ 1159 TD/TT: [employer]: [place] [address] Electrocardiograph Report Draft Patient: MICK SEGOVIA MR#: [id number] : 1980 Acct:[id number] Age/Sex: 43 / F ADM Date: Loc: ER Attending Dr: Ordering Physician: Dafne Mendez Date of Service: 10/15/24 Procedure(s): ECG 12 lead Accession Number(s): [id number] cc: [facility] Test Date: 2024-10-15 Pat Name: NAHUM KALYAN FOURNIER Department: 71 Room: - 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1980 Requ ested By: [id number] Order Number: [id number] Reading MD: Measurements Intervals [place] Rate: 73 P: 76 OK: 146 QRS: 76 QRSD: 86 T: 65 QT: 392 QTc: 418 Interpretive Statements 1100 Sinus rhythm 9110 normal ECG No previous ECG avai lable for comparison Dictated By: Carmen Cole Signed By: DD/ 1159 TD/TT: [employer]: Troponin I High Sensitivity Reviewed date:10/16/2024 08:10:34 PM Interpretation: Performing Lab: Notes/Report: [facility] , Troponin I High Sensitivity 4.4 4.0-51.3 pg/mL 99TH PERCENTILE = 51.4 PG/ML USED IN ISOLATION BUT SHOULD BE INTERPRETED IN CONJUNCTION DIAGNOSIS. REFERENCE LIMIT (URL) OF TROPONIN, DEFINED THE 99TH HAS BEEN CONFIRMED THE DECISION THRESHOLD FOR [place] NOTE: HIGH-SENSITIVITY TROPONIN ASSAY IS NOT INTENDED TO BE WITH OTHER DIAGNOSTIC AND CLINICAL INFORMATION. CUT-OFF POINTS HAVE BEEN ESTABLISHED BASED ON THE FOURTH UNIVERSAL DEFINITION OF MYOCARDIAL INFARCTION. THE UPPER PERCENTILE OF cTnI DISTRIBUTION IN A REFERENCE POPULATION, Performing Lab: see note ML - [facility] ECG 12 lead Reviewed date:10/16/2024 08:10:34 PM Interpretation: Performing Lab: Notes/Report: Source Facility: [facility]-[address] [place] [address] [place] [address] Electrocardiograph Report Signed Patient: NAHUM SEGOVIA MR#: [id number] : 1980 Acct:[id number] Age/Sex: 43 / F ADM Date: 10/15/24 Loc: ER Attending Dr: Ordering Physician: Dafne Mendez Date of Service: 10/15/24 Procedure(s): ECG 12 lead Accession Number(s): [id number] cc: [facility] Test Date: 2024-10-15 Pat Name: NAHUM SEGOVIA Department: Room: - 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 Measurements Intervals [place] Rate: 73 P: 76 OK: 146 QRS: 76 QRSD: 86 T: 65 QT: 392 QTc: 418 Interpretive Statements 1100 Sinus rhythm 9110 normal ECG Compared to ECG 02/18/2023 13:43:57 No significant changes Electronically Signed On 10-16-2024 7:44:21 EDT by SARAH FIELDS M.D. 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 Measurements Intervals [place] Rate: 73 P: 76 OK: 146 QRS: 76 QRSD: 86 T: 65 QT: 392 QTc: 418 Interpretive Statements 1100 Sinus rhythm 9110 normal ECG Compared to ECG 02/18/2023 13:43:57 No significant changes Electronically Tiana d On 10-16-2024 7:44:21 EDT by SARAH FIELDS M.D. Dictated By: SARAH FIELDS Signed By: 10/16/24 0744 DD/ 58 TD/TT: [employer]: CBC AUTO DIFF Reviewed date:11/18/2024 05:31:35 PM Interpretation: Performing Lab: Notes/Report: [facility] , White Blood Count 7.7 4.0-11.0 10 3/uL Red Blood Count 4.30 4.20-5.40 10 6/uL Hemoglobin 13.8 12.0-16.0 g/dL Hematocrit 39.6 36.0-48.0 % Mean Corpuscular Volume 92.1 81.0-99.0 fL Mean Corpuscular Hemoglobin 32.1 26.7-34.0 pg Mean Corpuscular HGB Conc 34.8 29.9-35.2 g/dL Red Cell Distribution Width 12.2 11.0-15.0 % Platelet Count 230 150-450 10 3/uL Mean Platelet Volume 9.7 9.5-13.5 fL Neutrophils Percent Auto 50.6 43.0-75.0 % Lymphocytes Percent Auto 38.6 20.5-60.0 % Monocytes Percent Auto 9.2 1.7-12.0 % Eosinophils Percent Auto 1.0 0.9-7.0 % Basophils Percent Auto 0.5 0.2-2.0 % Immature Granulocytes Pct Auto 0.1 0.0-0.5 % Neutrophils Absolute Auto 3.9 1.4-6.5 10 3/uL Lymphocytes Absolute Auto 3.0 1.2-3.8 10 3/uL Monocytes Absolute Auto 0.7 0.3-0.8 10 3/uL Eosinophils Absolute Auto 0.1 0.0-0.7 10 3/uL Basophils Absolute Auto 0.0 0.0-0.1 10 3/uL Immature Granulocytes Abs Auto 0.01 0.00-0.03 10 3/uL Performing Lab: see note ML - [facility] LB PROF 14(COMP METB) Reviewed date:11/18/2024 05:31:35 PM Interpretation: Performing Lab: Notes/Report: [facility] , Sodium 141 136-145 mmol/L Potassium 4.3 3.5-5.1 mmol/L Chloride 105 98-107 mmol/L Carbon Dioxide 25.1 21.0-32.0 mmol/L Anion Gap 15.2 Glucose 102 74-106 mg/dL Blood Urea Nitrogen 12.0 7.0-18.0 mg/dL Creatinine 0.63 0.55-1.02 mg/dL Estimated GFR ( Evy >60 >=60 mL/min/1.73m 2 Estimated GFR (Non- Brianna >60 >=60 mL/min/1.73m 2 BUN Creatinine Ratio 19.0 Calcium 9.1 8.5-10.1 mg/dL Bilirubin Total 0.7 0.2-1.0 mg/dL Aspartate Amino Transferase 15 15-37 U/L Alanine Aminotransferase 26 14-59 U/L Alkaline Phosphatase 72 46-116 U/L Total Protein 7.1 6.4-8.2 g/dL Albumin Level 3.8 3.4-5.0 g/dL Globulin 3.3 Albumin Globulin Ratio 1.2 Performing Lab: see note ML - [facility] LB PTT Reviewed date:11/18/2024 05:31:35 PM Interpretation: Performing Lab: Notes/Report: [facility] , Partial Thromboplastin Time 27.9 22.3-36.2 sec Performing Lab: see note ML - [facility] LB Prothrombin Time INR Reviewed date:11/18/2024 05:31:35 PM Interpretation: Performing Lab: Notes/Report: [facility] , Prothrombin Time 10.5 9.0-11.6 sec INR 0.99 DESIRED INR: 2.0-3.0 CONDITIONS NOT LISTED BELOW 2.5-3.5 FOR PROSTHETIC HEART VALVE REPLACEMENT 2.5-3.5 RECURRENT THROMBOSIS Performing Lab: see note ML - [facility] LB Troponin I High Sensitivity Reviewed date:11/18/2024 05:31:35 PM Interpretation: Performing Lab: Notes/Report: [facility] , Troponin I High Sensitivity 6.3 4.0-51.3 pg/mL CUT-OFF POINTS HAVE BEEN ESTABLISHED BASED ON THE FOURTH REFERENCE LIMIT (URL) OF TROPONIN, DEFINED THE 99TH PERCENTILE OF cTnI DISTRIBUTION IN A REFERENCE POPULATION, NOTE: HIGH-SENSITIVITY TROPONIN ASSAY IS NOT INTENDED TO BE DIAGNOSIS. HAS BEEN CONFIRMED THE DECISION THRESHOLD FOR [place] WITH OTHER DIAGNOSTIC AND CLINICAL INFORMATION. USED IN ISOLATION BUT SHOULD BE INTERPRETED IN CONJUNCTION 99TH PERCENTILE = 51.4 PG/ML UNIVERSAL DEFINITION OF MYOCARDIAL INFARCTION. THE UPPER Performing Lab: see note ML - [facility] LB ECG 12 lead Reviewed date:11/18/2024 05:31:35 PM Interpretation: Performing Lab: Notes/Report: Source Facility: [facility]-[address] [place] [address] [place] [address] Electrocardiograph Report Draft Patient: NAHUM SEGOVIA MR#: [id number] : 1980 Acct:[id number] Age/Sex: 44 / F ADM Date: 11/17/24 Loc: ER Attending Dr: Ordering Physician: Ana Hector Date of Service: 11/17/24 Procedure(s): ECG 12 lead Accession Number(s): [id number] cc: [facility] Test Date: 2024-11-17 Pat Name: NAHUM SEGOVIA Department: Room: - 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1980 Requested By: 0919 Order Number: [id number] Reading MD: Measurements Intervals Troy Rate: 55 P: 65 OK: 138 QRS: 57 QRSD: 80 T: 57 QT: 426 QTc: 415 Interpretive Statements 1100 Sinus rhythm 9110 normal ECG No previous ECG available for comparison Dictated By: Carmen Cole Signed By: DD/ 100 TD/TT: [employer]: [place] [address] Electrocardiograph Report Draft Patient: MICK SEGOVIA MR#: [id number] : 1980 Acct:[id number] Age/Sex: 44 / F ADM Date: 11/17/24 Loc: ER Attending Dr: Ordering Physician: Ana Hector Date of Service: 11/17/24 Procedure(s): ECG 12 lead Accession Number(s): [id number] cc: [facility] Test Date: 2024-11-17 Pat Name: NAHUM FOURNIER Department: 71 Room: - 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1980 Requ ested By: 0919 Order Number: [id number] Reading MD: Measurements Intervals [place] Rate: 55 P: 65 OK: 138 QRS: 57 QRSD: 80 T: 57 QT: 426 QTc: 415 Interpretive Statements 1100 Sinus rhythm 9110 normal ECG No previous ECG avai lable for comparison Dictated By: Carmen Cole Signed By: DD/ 100 TD/TT: [employer]: CT angio neck Reviewed date:11/18/2024 05:31:35 PM Interpretation: Performing Lab: Notes/Report: Source Facility: [place] [address] [place] [address] CT Scan Report Signed Patient: NAHUM SEGOVIA MR#: [id number] : 1980 Acct:[id number] Age/Sex: 44 / F ADM Date: 11/17/24 Loc: ER Attending Dr: Ordering Physician: Ana Hector Date of Service: 11/17/24 Procedure(s): CT angio neck Accession Number(s): [id number] cc: John Moreno M.D. [address] [address] Patient Name: NAHUM SEGOVIA MRN: [id number] date: 1980 Sex: F Assigned Patient Location: ER Current Patient Location: ER Accession/Order Number: [id number] Exam Date: 11/17/2024 12:35 Report Date: 11/17/2024 12:50 At the request of: ANA HECTOR MD Procedure: CT head/brain wo con CLINICAL DATA: Left jaw and neck pain. Difficulty walking for the past couple days and visual changes today. Recent TIA. CT BRAIN WITHOUT CONTRAST: COMPARISON: None TECHNIQUE: Contiguous axial unenhanced images were obtained through the brain. This CT exam was performed using one or more following dose reduction techniques: Automated exposure control, adjustment of the mA and/or kV according to patient size, or use of iterative reconstruction technique. FINDINGS: The ventricles are normal in size and position. There are no areas of abnormal attenuation. There is no hemorrhage, mass effect or extra-axial collections. There could be partial empty sella and borderline low-lying cerebellar tonsils. The imaged paranasal sinuses and mastoid air cells are clear. No otitis is noted. CT/CT angio neck IMPRESSION: NO ACUTE INTRACRANIAL ABNORMALITY. IF SYMPTOMS PERSIST, FOLLOW-UP MRI COULD BE CONSIDERED. CTA OF THE HEAD AND NECK WITH CONTRAST COMPARISON: None Spiral images were obtained through the neck following 100 MLO lipase 350. Sagittal coronal MIP as well as 3-D volume rendered reconstructions of carotid arteries and [place] of [place] were reviewed. Stenosis is evaluated using NASCET criteria. This CT exam was performed using one or more following dose reduction techniques: Automated exposure control, adjustment of the mA and/or kV according to patient size, or use of iterative reconstruction technique. There is an unremarkable three-vessel arch. There is minimal plaque at the proximal left subclavian artery. The vertebral arteries are patent. No focal stenosis or dissection is seen. No carotid artery plaque or luminal narrowing is noted. There is straightening in the normal cervical curvature and mild degenerative changes. There is a small enhancing 6 mm left thyroid nodule. The upper lungs show obstructive changes. The distal vertebral, basilar and posterior cerebral arteries show no significant findings. No carotid siphon plaque or luminal narrowing is identified. The anterior and middle cerebral arteries are patent. No focal stenosis or suspected thrombosis is identified. No aneurysms are seen. IMPRESSION: NO SIGNIFICANT VASCULAR FINDINGS. Impression dictated by: Rosa Jones M.D. 11/17/2024 12:50 PM Dictation Location: [place] [address] Electronically authenticated by: [id number] Y Date: 11/17/2024 12:50 Dictated By: Rosa Jones M.D. Signed By: 11/17/24 1253 DD/ 1250 TD/TT: [employer]: The [address] [address] [address] Scan Report Signed Patient: MICK SEGOVIA MR#: [id number] : 1980 Acct:[id number] Age/Sex: 44 / F ADM Date: 11/17/24 Loc: ER Attending Dr: Ordering Physician: Ana Hector Date of Service: 11/17/24 Procedure(s): CT ang io neck Accession Number(s): [id number] cc: John Moreno M.D. [address] [address] Patient Name: NAHUM SEGOVIA MRN: [id number] date: 1980 Sex: F Assigned Patient Location: ER Current Patient Loca tion: ER Accession/Order Numb er: [id number] Exam Date: 11/17/2024 12:35 Report Date: 11/17/2024 12:50 At the request of: ANA HECTOR MD Procedure: CT head/b rain wo con CLINICAL DATA: Left jaw and neck pain. Difficulty walking for the past couple days and visual medrano ges today. Recent TIA. CT BRAIN WITHOUT CONTRAST: COMPARISON: None TECHNIQUE: Gildauou s axial unenhanced images were obtained through the brain. This CT exam was performed using one or more following dose reduction techniques: Automate d exposure control, adjustment of the mA and/or kV according to patient size, or use of iterative reconstruction technique. FINDINGS: The ventri cles are normal in size and position. There are no areas of abnormal attenuat ion. There is no hemorrhage, mass effect or extra-axial collections. There c ould be partial empty sella and borderline low-lying cerebellar tonsils. The imaged paranasal sinuses and mastoid air cells are clear. No otitis is noted. C T/CT angio neck IMPRESSION: NO ACUTE INTRACRANIA L ABNORMALITY. IF SYMPTOMS PERSIST, FOLLOW-UP MRI COULD BE CONSIDERED. CTA OF THE HEAD AND NECK WITH CONTRAST COMPARISON: None Spiral images were obtained through the neck following 100 MLO lipase 350. Sagittal coronal MIP as well as 3-D volume rendered reconstructions of carotid arteries and [place] of [place] were reviewed. Stenosis is evaluated using NASCET criteria. Thi s CT exam was performed using one or more following dose reduction techniques : Automated exposure control, adjustment of the mA and/or kV according to micky ent size, or use of iterative reconstruction technique. There is an unremark able three-vessel arch. There is minimal plaque at the proximal left subcla vian artery. The vertebral arteries are patent. No focal stenosis or dissecti on is seen. No carotid artery plaque or luminal narrowing is noted. There is straightening in the normal cervical curvature and mild degenerative changes . There is a small enhancing 6 mm left thyroid nodule. The upper lungs show obstructive changes. The distal vertebral , basilar and posterior cerebral arteries show no significant findings . No carotid siphon plaque or luminal narrowing is identified. The ante rior and middle cerebral arteries are patent. No focal stenosis or suspecte d thrombosis is identified. No aneurysms are seen. IMPRESSION: NO SIGNIFICANT VASCU LAR FINDINGS. Impression dictated by: Rosa Jones M.D. 11/17/2024 12:50 PM Dictation Location: [place] [address] Electronically authenticated by: [id number] Y Date: 11/17/2024 12:50 Dictated By: Rosa Jones M.D. Signed By: 11/17/24 1253 DD/ 1250 TD/TT: [employer]: CT angio head Reviewed date:11/18/2024 05:31:35 PM Interpretation: Performing Lab: Notes/Report: Source Facility: [place] [address] CT Scan Report Signed Patient: NAHUM SEGOVIA MR#: [id number] : 1980 Acct:[id number] Age/Sex: 44 / F ADM Date: 11/17/24 Loc: ER Attending Dr: Ordering Physician: Ana Hector Date of Service: 11/17/24 Procedure(s): CT angio head Accession Number(s): [id number] cc: John Moreno M.D. [address] [address] Patient Name: NAHUM SEGOVIA MRN: [id number] date: 1980 Sex: F Assigned Patient Location: ER Current Patient Location: ER Accession/Order Number: [id number] Exam Date: 11/17/2024 12:35 Report Date: 11/17/2024 12:50 At the request of: ANA HECTOR MD Procedure: CT head/brain wo con CLINICAL DATA: Left jaw and neck pain. Difficulty walking for the past couple days and visual changes today. Recent TIA. CT BRAIN WITHOUT CONTRAST: COMPARISON: None TECHNIQUE: Contiguous axial unenhanced images were obtained through the brain. This CT exam was performed using one or more following dose reduction techniques: Automated exposure control, adjustment of the mA and/or kV according to patient size, or use of iterative reconstruction technique. FINDINGS: The ventricles are normal in size and position. There are no areas of abnormal attenuation. There is no hemorrhage, mass effect or extra-axial collections. There could be partial empty sella and borderline low-lying cerebellar tonsils. The imaged paranasal sinuses and mastoid air cells are clear. No otitis is noted. CT/CT angio head IMPRESSION: NO ACUTE INTRACRANIAL ABNORMALITY. IF SYMPTOMS PERSIST, FOLLOW-UP MRI COULD BE CONSIDERED. CTA OF THE HEAD AND NECK WITH CONTRAST COMPARISON: None Spiral images were obtained through the neck following 100 MLO lipase 350. Sagittal coronal MIP as well as 3-D volume rendered reconstructions of carotid arteries and [place] of [place] were reviewed. Stenosis is evaluated using NASCET criteria. This CT exam was performed using one or more following dose reduction techniques: Automated exposure control, adjustment of the mA and/or kV according to patient size, or use of iterative reconstruction technique. There is an unremarkable three-vessel arch. There is minimal plaque at the proximal left subclavian artery. The vertebral arteries are patent. No focal stenosis or dissection is seen. No carotid artery plaque or luminal narrowing is noted. There is straightening in the normal cervical curvature and mild degenerative changes. There is a small enhancing 6 mm left thyroid nodule. The upper lungs show obstructive changes. The distal vertebral, basilar and posterior cerebral arteries show no significant findings. No carotid siphon plaque or luminal narrowing is identified. The anterior and middle cerebral arteries are patent. No focal stenosis or suspected thrombosis is identified. No aneurysms are seen. IMPRESSION: NO SIGNIFICANT VASCULAR FINDINGS. Impression dictated by: Rosa Jones M.D. 11/17/2024 12:50 PM Dictation Location: [place] [address] Electronically authenticated by: [id number] Y Date: 11/17/2024 12:50 Dictated By: Rosa Jones M.D. Signed By: 11/17/24 1252 DD/ 1250 TD/TT: [employer]: [place] [address] CT Scan Report Signed Patient: MICK SEGOVIA MR#: [id number] : 1980 Acct:[id number] Age/Sex: 44 / F ADM Date: 11/17/24 Loc: ER Attending Dr: Ordering Physician: Ana Hector Date of Service: 11/17/24 Procedure(s): CT ang io head Accession Number(s): [id number] cc: John Moreno M.D. [place] [address] Patient Name: NAHUM SEGOVIA MRN: [id number] date: 1980 Sex: F Assigned Patient Location: ER Current Patient Loca tion: ER Accession/Order Numb er: [id number] Exam Date: 11/17/2024 12:35 Report Date: 11/17/2024 12:50 At the request of: ANA HECTOR MD Procedure: CT head/b rain wo con CLINICAL DATA: Left jaw and neck pain. Difficulty walking for the past couple days and visual medrano ges today. Recent TIA. CT BRAIN WITHOUT CONTRAST: COMPARISON: None TECHNIQUE: Contiguou s axial unenhanced images were obtained through the brain. This CT exam was performed using one or more following dose reduction techniques: Automate d exposure control, adjustment of the mA and/or kV according to patient size, or use of iterative reconstruction technique. FINDINGS: The ventri cles are normal in size and position. There are no areas of abnormal attenuat ion. There is no hemorrhage, mass effect or extra-axial collections. There c ould be partial empty sella and borderline low-lying cerebellar tonsils. The imaged paranasal sinuses and mastoid air cells are clear. No otitis is noted. C T/CT angio head IMPRESSION: NO ACUTE INTRACRANIA L ABNORMALITY. IF SYMPTOMS PERSIST, FOLLOW-UP MRI COULD BE CONSIDERED. CTA OF THE HEAD AND NECK WITH CONTRAST COMPARISON: None Spiral images were obtained through the neck following 100 MLO lipase 350. Sagittal coronal MIP as well as 3-D volume rendered reconstructions of carotid arteries and [place] of [place]pez were reviewed. Stenosis is evaluated using NASCET criteria. Thi s CT exam was performed using one or more following dose reduction techniques : Automated exposure control, adjustment of the mA and/or kV according to micky ent size, or use of iterative reconstruction technique. There is an unremark able three-vessel arch. There is minimal plaque at the proximal left subcla vian artery. The vertebral arteries are patent. No focal stenosis or dissecti on is seen. No carotid artery plaque or luminal narrowing is noted. There is straightening in the normal cervical curvature and mild degenerative changes . There is a small enhancing 6 mm left thyroid nodule. The upper lungs show obstructive changes. The distal vertebral , basilar and posterior cerebral arteries show no significant findings . No carotid siphon plaque or luminal narrowing is identified. The ante rior and middle cerebral arteries are patent. No focal stenosis or suspecte d thrombosis is identified. No aneurysms are seen. IMPRESSION: NO SIGNIFICANT VASCU LAR FINDINGS. Impression dictated by: Rosa Jones M.D. 11/17/2024 12:50 PM Dictation Location: [place] [address] Electronically authenticated by: [id number] Y Date: 11/17/2024 12:50 Dictated By: Rosa Jones M.D. Signed By: 11/17/24 1257 DD/ 1250 TD/TT: [employer]: XR chest 2V Reviewed date:11/18/2024 05:31:35 PM Interpretation: Performing Lab: Notes/Report: Source Facility: [place] [address] [address] XRay Report Signed Patient: NAHUM SEGOVIA MR#: [id number] : 1980 Acct:[id number] Age/Sex: 44 / F ADM Date: 11/17/24 Loc: ER Attending Dr: Ordering Physician: Ana Hector Date of Service: 11/17/24 Procedure(s): XR chest 2V Accession Number(s): [id number] cc: John Moreno M.D.; Ana Hector [place] [address] Patient Name: NAHUM SEGOVIA MRN: [id number] date: 1980 Sex: F Assigned Patient Location: ER Current Patient Location: ER Accession/Order Number: [id number] Exam Date: 11/17/2024 10:54 Report Date: 11/17/2024 10:56 At the request of: ANA HECTOR MD Procedure: XR chest 2V XR chest 2V 11/17/2024 10:48 AM SIGNS AND SYMPTOMS: jaw pain , chest pain, weakness PROTOCOL: Frontal and lateral radiographs of the chest COMPARISON: 02/18/2023 FINDINGS: The trachea is midline. Patient has a similar pericardial fluid collection along the right heart border. A generator is noted in the left anterior chest wall. The lung parenchyma is clear. The bony thorax is intact. XR/XR chest 2V IMPRESSION: No acute cardiopulmonary pathology. Chronic findings are redemonstrated as above. Impression dictated by: Homero Leos M.D. 11/17/2024 10:56 AM Dictation Location: [place] [address] Electronically authenticated by: [id number] Y Date: 11/17/2024 10:56 Dictated By: Homero Leos M.D. Signed By: 11/17/24 1058 DD/ 1056 TD/TT: [employer]: The [address] [address] XRay Report Signed Patient: MICK SEGOVIA MR#: [id number] : 1980 Acct:[id number] Age/Sex: 44 / F ADM Date: 11/17/24 Loc: ER Attending Dr: Ordering Physician: Ana Hector Date of Service: 11/17/24 Procedure(s): XR chest 2V Accession Number(s): [id number] cc: John Moreno M.D. ; Ana Hector [address] [address] Patient Name: NAHUM SEGOVIA MRN: [id number] date: 1980 Sex: F Assigned Patient Location: ER Current Patient Loca tion: ER Accession/Order Numb er: [id number] Exam Date: 11/17/2024 10:54 Report Date: 11/17/2024 10:56 At the request of: ANA HECTOR MD Procedure: XR chest 2V XR chest 2V 11/17/2024 10:48 AM SIGNS AND SYMPTOMS: jaw pain , chest sylvester n, weakness PROTOCOL: Frontal an d lateral radiographs of the chest COMPARISON: 02/18/2023 FINDINGS: The trachea is midli ne. Patient has a similar pericardial fluid collection along the right hear t border. A generator is noted in the left anterior chest wall. The lung paren chyma is clear. The bony thorax is intact. X R/XR chest 2V IMPRESSION: No acute cardiopulmo nary pathology. Chronic findings are redemonstrated as above. Impression dictated by: Homero Leos M.D. 11/17/2024 10:56 AM Dictation Location: [place] [address] Electronically authenticated by: [id number] Y Date: 11/17/2024 10:56 Dictated By: Homero Leos M.D. Signed By: 11/17/24 1058 DD/ 1056 TD/TT: [employer]: CT head/brain wo con Reviewed date:11/18/2024 05:31:35 PM Interpretation: Performing Lab: Notes/Report: Source Facility: [address] [address] [address] Scan Report Signed Patient: NAHUM SEGOVIA MR#: [id number] : 1980 Acct:[id number] Age/Sex: 44 / F ADM Date: 11/17/24 Loc: ER Attending Dr: Ordering Physician: Ana Hector Date of Service: 11/17/24 Procedure(s): CT head/brain wo con Accession Number(s): [id number] cc: John Moreno M.D. [place] [address] Patient Name: NAHUM SEGOVIA MRN: [id number] date: 1980 Sex: F Assigned Patient Location: ER Current Patient Location: ER Accession/Order Number: [id number] Exam Date: 11/17/2024 12:35 Report Date: 11/17/2024 12:50 At the request of: ANA HECTOR MD Procedure: CT head/brain wo con CLINICAL DATA: Left jaw and neck pain. Difficulty walking for the past couple days and visual changes today. Recent TIA. CT BRAIN WITHOUT CONTRAST: COMPARISON: None TECHNIQUE: Contiguous axial unenhanced images were obtained through the brain. This CT exam was performed using one or more following dose reduction techniques: Automated exposure control, adjustment of the mA and/or kV according to patient size, or use of iterative reconstruction technique. FINDINGS: The ventricles are normal in size and position. There are no areas of abnormal attenuation. There is no hemorrhage, mass effect or extra-axial collections. There could be partial empty sella and borderline low-lying cerebellar tonsils. The imaged paranasal sinuses and mastoid air cells are clear. No otitis is noted. CT/CT head/brain wo con IMPRESSION: NO ACUTE INTRACRANIAL ABNORMALITY. IF SYMPTOMS PERSIST, FOLLOW-UP MRI COULD BE CONSIDERED. CTA OF THE HEAD AND NECK WITH CONTRAST COMPARISON: None Spiral images were obtained through the neck following 100 MLO lipase 350. Sagittal coronal MIP as well as 3-D volume rendered reconstructions of carotid arteries and [place] of L[place]pez were reviewed. Stenosis is evaluated using NASCET criteria. This CT exam was performed using one or more following dose reduction techniques: Automated exposure control, adjustment of the mA and/or kV according to patient size, or use of iterative reconstruction technique. There is an unremarkable three-vessel arch. There is minimal plaque at the proximal left subclavian artery. The vertebral arteries are patent. No focal stenosis or dissection is seen. No carotid artery plaque or luminal narrowing is noted. There is straightening in the normal cervical curvature and mild degenerative changes. There is a small enhancing 6 mm left thyroid nodule. The upper lungs show obstructive changes. The distal vertebral, basilar and posterior cerebral arteries show no significant findings. No carotid siphon plaque or luminal narrowing is identified. The anterior and middle cerebral arteries are patent. No focal stenosis or suspected thrombosis is identified. No aneurysms are seen. IMPRESSION: NO SIGNIFICANT VASCULAR FINDINGS. Impression dictated by: Rosa Jones M.D. 11/17/2024 12:50 PM Dictation Location: [place] [address] Electronically authenticated by: [id number] Y Date: 11/17/2024 12:50 Dictated By: Rosa Jones M.D. Signed By: 11/17/24 1252 DD/ 1250 TD/TT: [employer]: [place] [address] CT Scan Report Signed Patient: MICK SEGOVIA MR#: [id number] : 1980 Acct:[id number] Age/Sex: 44 / F ADM Date: 11/17/24 Loc: ER Attending Dr: Ordering Physician: Ana Hector Date of Service: 11/17/24 Procedure(s): CT head/brain wo con Accession Number(s): [id number] cc: John Moreno M.D. [place] [address] Patient Name: NAHUM SEGOVIA MRN: [id number] date: 1980 Sex: F Assigned Patient Location: ER Current Patient Loca tion: ER Accession/Order Numb er: [id number] Exam Date: 11/17/2024 12:35 Report Date: 11/17/2024 12:50 At the request of: ANA HECTOR MD Procedure: CT head/b rain wo con CLINICAL DATA: Left jaw and neck pain. Difficulty walking for the past couple days and visual medrano ges today. Recent TIA. CT BRAIN WITHOUT CONTRAST: COMPARISON: None TECHNIQUE: Contiguou s axial unenhanced images were obtained through the brain. This CT exam was performed using one or more following dose reduction techniques: Automate d exposure control, adjustment of the mA and/or kV according to patient size, or use of iterative reconstruction technique. FINDINGS: The ventri cles are normal in size and position. There are no areas of abnormal attenuat ion. There is no hemorrhage, mass effect or extra-axial collections. There c ould be partial empty sella and borderline low-lying cerebellar tonsils. The imaged paranasal sinuses and mastoid air cells are clear. No otitis is noted. C T/CT head/brain wo con IMPRESSION: NO ACUTE INTRACRANIA L ABNORMALITY. IF SYMPTOMS PERSIST, FOLLOW-UP MRI COULD BE CONSIDERED. CTA OF THE HEAD AND NECK WITH CONTRAST COMPARISON: None Spiral images were obtained through the neck following 100 MLO lipase 350. Sagittal coronal MIP as well as 3-D volume rendered reconstructions of carotid arteries and [place] of [place]pez were reviewed. Stenosis is evaluated using NASCET criteria. Thi s CT exam was performed using one or more following dose reduction techniques : Automated exposure control, adjustment of the mA and/or kV according to micky ent size, or use of iterative reconstruction technique. There is an unremark able three-vessel arch. There is minimal plaque at the proximal left subcla vian artery. The vertebral arteries are patent. No focal stenosis or dissecti on is seen. No carotid artery plaque or luminal narrowing is noted. There is straightening in the normal cervical curvature and mild degenerative changes . There is a small enhancing 6 mm left thyroid nodule. The upper lungs show obstructive changes. The distal vertebral , basilar and posterior cerebral arteries show no significant findings . No carotid siphon plaque or luminal narrowing is identified. The ante rior and middle cerebral arteries are patent. No focal stenosis or suspecte d thrombosis is identified. No aneurysms are seen. IMPRESSION: NO SIGNIFICANT VASCU LAR FINDINGS. Impression dictated by: Rosa Jones M.D. 11/17/2024 12:50 PM Dictation Location: [place] [address] Electronically authenticated by: [id number] Y Date: 11/17/2024 12:50 Dictated By: Rosa Jones M.D. 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 Measurements Intervals [place] Rate: 55 P: 65 OK: 138 QRS: 57 QRSD: 80 T: 57 QT: 426 QTc: 415 Interpretive Statements 1100 Sinus rhythm 9110 normal ECG Compared to ECG 10/15/2024 11:59:29 No significant changes Electronically Signed On 11-17-2024 18:24:38 EDT by SARAH FIELDS M.D. 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 Measurements Intervals [place] Rate: 55 P: 65 OK: 138 QRS: 57 QRSD: 80 T: 57 QT: 426 QTc: 415 Interpretive Statements 1100 Sinus rhythm 9110 normal ECG Compared to ECG 10/15/2024 11:59:29 No significant changes Electronically Tiana d On 11-17-2024 18:24:38 EDT by SARAH FIELDS M.D. Dictated By: SARAH FIELDS Signed By: 11/17/24 1825 DD/ 1004 TD/TT: [employer]: MR head/brain wo con Reviewed date:11/27/2024 01:15:31 PM Interpretation: Performing Lab: Notes/Report: Source Facility: [place] [address] Magnetic Resonance Report Signed Patient: NAHUM SEGOVIA MR#: [id number] : 1980 Acct:[id number] Age/Sex: 44 / F ADM Date: 11/27/24 Loc: MRI Attending Dr: John Moreno M.D. Ordering Physician: John Moreno M.D. Date of Service: 11/27/24 Procedure(s): MR head/brain wo con Accession Number(s): [id number] cc: John Moreno M.D. [place] [address] Patient Name: NAHUM SEGOVIA MRN: [id number] date: 1980 Sex: F Assigned Patient Location: MRI Current Patient Location: MRI Accession/Order Number: [id number] Exam Date: 11/27/2024 08:53 Report Date: 11/27/2024 09:07 At the request of: JOHN MORENO MD Procedure: MR head/brain wo con EXAMINATION: MRI OF THE BRAIN WITHOUT CONTRAST CLINICAL HISTORY: TIA G45.9; right side weakness M62.81 COMPARISON: CT 11/17/2024 TECHNIQUE: Multiecho, multiplanar imaging of the brain was performed without enhancement. Patient terminated the scan early due to nausea and increased heart rate. The ventricles are normal in size and position. There are no suspicious areas of abnormal signal intensity within the supra- or infratentorial brain. No restricted diffusion is identified to suggest a recent ischemic event. There are no extra-axial collections or mass effect. There is potential partial empty sella. The imaged paranasal sinuses and mastoid air cells are clear. MR/MR head/brain wo con IMPRESSION: NO ACUTE INTRACRANIAL FINDINGS. Impression dictated by: Rosa Jones M.D. 11/27/2024 9:07 AM Dictation Location: [place] [address] Electronically authenticated by: [id number] Y Date: 11/27/2024 09:07 Dictated By: Rosa Jones M.D. Signed By: 11/27/24909 DD/ 6 TD/TT: [employer]: [place] [address] Magnetic Resonance Report Signed Patient: MICK SEGOVIA MR#: [id number] : 1980 Acct:[id number] Age/Sex: 44 / F ADM Date: 11/27/24 Loc: MRI Attending Dr: Meg Moreno M.D. Ordering Physician: John Moreno M.D. Date of Service: 11/27/24 Procedure(s): MR head/brain wo con Accession Number(s): [id number] cc: John Moreno M.D. [address] [address] Patient Name: NAHUM SEGOVIA MRN: [id number] date: 1980 Sex: F Assigned Patient Location: MRI Current Patient Loca tion: MRI Accession/Order Numb er: [id number] Exam Date: 11/27/2024 08:53 Report Date: 11/27/2024 09:07 At the request of: JOHN MORENO MD Procedure: MR head/b rain wo con EXAMINATION: MRI OF THE BRAIN WITHOUT CONTRAST CLINICAL HISTORY: TI A G45.9; right side weakness M62.81 COMPARISON: CT 11/17/2024 TECHNIQUE: Multiecho , multiplanar imaging of the brain was performed without enhancement. Patient terminated the scan early due to nausea and increased heart rate. The ventricles are n ormal in size and position. There are no suspicious areas of abnormal signal intensity within the supra- or infratentorial brain. No restricted diffusion is identified to suggest a recent ischemic event. There are no extra-axial collections or mass effect. There is potential partial empty sella. The jayjay ged paranasal sinuses and mastoid air cells are clear. M R/MR head/brain wo con IMPRESSION: NO ACUTE INTRACRANIA L FINDINGS. Impression dictated by: Rosa Jones M.D. 11/27/2024 9:07 AM Dictation Location: [place] [address] Electronically authenticated by: [id number] Y Date: 11/27/2024 09:07 Dictated By: Rosa Jones M.D. Signed By: 11/27/24 0910 DD/ 0907 TD/TT: [employer]: PROF YESSENIA Islas ([facility]) Reviewed date:10/02/2024 08:07:59 PM Interpretation: Performing Lab: Notes/Report: [facility] , Sodium 141 136-145 mmol/L Potassium [...] mg/dL Performing Lab: see note ML - [facility] LB CBC AUTO DIFF Reviewed date:10/02/2024 08:07:59 PM Interpretation: Performing Lab: Notes/Report: [facility] , White Blood Count 7.3 4.0-11.0 [...] Performing Lab: see note ML - [facility] LB PROF 14(COMP METB) Reviewed date:08/21/2024 02:07:51 PM Interpretation: Performing Lab: Notes/Report: [facility] , Sodium 141 136-145 mmol/L Potassium [...] 1.2 Performing Lab: see note ML - [facility] LIPID PROFILE Reviewed date:08/21/2024 02:07:51 PM Interpretation: Performing Lab: Notes/Report: [facility] , Triglycerides 67 <=150 mg/dL Cholesterol 193 <=200 mg/dL HDL Cholesterol 70 40-60 mg/dL <40 mg/dl - HIGH CARDIOVASCULAR RISK > or =60 mg/dl - LOW CARDIOVASCULAR RISK LDL Cholesterol Calculated 110.0 >190 mg/dl VERY HIGH <100 mg/dl OPTIMAL 100-129 mg/dl NEAR OR ABOVE OPTIMAL 160-189 mg/dl HIGH 130-159 mg/dl BORDERLINE HIGH VLDL CHOLESTEROL 13.4 Chol HDL Ratio 2.8 3.3 - 4.4 LOW RISK 7.1 - 11.0 MODERATE RISK 4.4 - 7.1 AVERAGE RISK >11.0 HIGH RISK Performing Lab: see note - [facility] IRON Reviewed date:08/21/2024 02:07:51 PM Interpretation: Performing Lab: Notes/Report: [facility] , Iron 100.0 50.0-170.0 ug/dL Performing Lab: see note ML - [facility] INSULIN Reviewed date:08/22/2024 03:51:20 PM Interpretation: Performing Lab: Notes/Report: [facility] , Insulin 9.4 2.6-24.9 uIU/mL [address] [place], [place] [id number] Calculation Reviewer: Gabriel Pretty PhD, Phone: [phone] Performed at: [facility] Performing Lab: see note - [facility] LB GLYCOHEMOGLOBIN A1C Reviewed date:08/21/2024 02:07:51 PM Interpretation: Performing Lab: Notes/Report: [facility] , Glycohemoglobin A1C 5.2 4.5-6.2 % > 7.0 ADA THERAPEUTIC TARGET < 7.0 ACTION SUGGESTED ADA RECOMMENDED LIMIT 4.0 - 6.0 Estimated Average Glucose 103 Performing Lab: see note ML - [facility] LB FREE T3 Reviewed date:08/21/2024 02:07:51 PM Interpretation: Performing Lab: Notes/Report: [facility] , Free T3 2.64 2.18-3.98 pg/mL Performing Lab: see note ML - [facility] LB Reason For Referral Diagnosis 1 Cardiac aneurysm (I2 5.3) Referral Organization [facility] Referring Provider First Name Giovanny Referring Provider Last Name Josh Referring Provider [facility] Referred Provider [facility] Specialty Cardiology Referral Priority Routine Reason physical therapy ref erral Diagnosis 1 Generalized weakness (R53.1) Referral Organization [facility] Referring Provider First Name Giovanny Referring Provider Last Name Josh Referring Provider [facility] Referred Provider Specialty Physical Med icine and Rehabilitation Referral Priority Routine Diagnosis 1 TIA (transient ische crickte attack) (G45.9) Referral Organization [facility] Referring Provider First Name Giovanny Referring Provider Last Name Josh Referring Provider [facility] Referred Provider Specialty Cardiac Reha b Referral Priority Routine Medications Medication SIG (Take, Route, Frequency, Duration) Notes Start Date End Date Status Walker with Wheels -- wheeled walker wit h seat for 365 days 11/27/2024 Active Vitamin D (Cholecalciferol) 50 MCG (1999) 1 capsule Orally Once a day for 30 days 08/10/2023 Active Metoprolol Succinate ER 50 MG 1 tablet Orally Once a day Active Spironolactone 25 MG 0.5 tablet Orally O nce a day Active Losartan Potassium 50 MG 1 tablet Orally Once a day Active Vitamin B 12 Active ALPRAZolam 0.25 MG 1 tablet Orally tid for 14 days F41.9 12/28/2024 Active Social History Tobacco Use: Social History [...] Problem Status W/U Status Risk Notes Problem 72553683 Hypothyroidism, unspecified (E03.9) Active confirmed Problem 40334199 Leiomyoma of uterus, unspecified (D25.9) Active confirmed Problem 19190028 Vitamin D deficiency, unspecified (E55.9) Active confirmed Problem Peripheral vertigo (68056311) Other peripheral vertigo, unspecified ear (H81.399) Active confirmed Problem 88521081451662714 Pain in right hand (M79.641) Active confirmed Problem 108841344928453 Pain in left lockhart d (M79.642) Active confirmed Problem 44541803 Acute cystitis with hematuria (N30.01) Active confirmed Problem 45134284 Other specified conditions associated with female genital organs and menstrual cycle (N94.89) Active confirmed Problem Palpitations (44201851) Palpitations (R00.2) Active confirmed Problem Weakness (43970371) Weakness (R53.1) Active con firmed Problem Jaw pain (975175568) Jaw pain (R68.84) Active c onfirmed Problem Contusion of wrist (05353245) Contusion of right wrist, initial encounter (S60.211A) Active confirmed Problem Contusion of right knee (46849448165446497) Contusion of right knee, sequela (S80.01XS) Active confirmed Problem Exposure to communicable disease (911754775) Contact with and (suspected) exposure to other viral communicable diseases (Z20.828) Active confirmed Problem Chest pain (74508363) Chest pain (R07.9) Active confirmed Problem Esophageal reflux (626607196) Esophageal reflux (K21.9) Active confirmed Problem Transient ischemic attack (674182592) TIA (transient ischemic attack) (G45.9) Active confirmed Problem Degeneration of cervical intervertebral disc (43795818) Degenerative disc disease, cervical (M50.30) Active confirmed Problem Lumbar radiculopathy (343362342) Lumbar radiculopathy (M54.16) Active confirmed Problem Amnesia (44853145) Memory change (R41.3) Active confirmed Problem Leiomyoma of uterus (76303868) Leiomyoma of uterus (D25.9) Active confirmed Problem Gastritis (1247322) Gastritis (K29.70) Active confirmed Problem Well adult (784346736) Well adult (Z00.00) Active confirmed Problem Diverticulitis (67249834) Diverticulitis (K57.92) Active confirmed Problem Contact dermatitis (92770889) Contact dermatitis (L25.9) Active confirmed Problem Dumping syndrome (71233296) Dumping 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) Active confirmed Problem Acute diarrhea (836959644) Acute diarrhea (R19.7) Active confirmed Problem Fibrocystic breast changes (13194168) Fibrocystic breast disease (N60.19) Active confirmed Problem Herpetic fallon (64455140) Herpetic fallon (B00.89) Active confirmed Problem Left upper quadrant pain (243974039) Abdominal pain, LUQ (R10.12) Active confirmed Problem Inguinal hernia (501520985) Hernia, inguinal, left (K40.90) Active confirmed Problem Inguinal lymphadenopathy (135775879) Inguinal lymphadenopathy (R59.0) Active confirmed Problem Shoulder impingement syndrome (566818378) Shoulder impingement syndrome (M75.40) Active confirmed Problem Irregular intermenstrual bleeding (22478840) Irregular intermenstrual bleeding (N92.1) Active confirmed Problem Cardiac aneurysm (06051830) Cardiac aneurysm (I25.3) Active confirmed Problem Plain X-ray of chest abnormal (finding) (6082151033) Abnormal chest x-ray (R93.89) Active confirmed Problem Low back pain (525474744) Low back pain, unspecified (M54.50) Active confirmed Problem Cough (finding) (04271830) Cough, unspecified (R05.9) Active confirmed Vital Signs Blood pressure diastolic 80 mm Hg 11/20/2024 Height 66 in 11/20/2024 Blood pressure systolic 140 mm Hg 11/20/2024 Weight 130.6 lbs 11/20/2024 BMI 21.08 kg/m2 11/20/2024 Procedures Procedure Date Ordered Date Performed Result Body Sit e Echocardiogram 08/29/2024 N/A Encounters Encounter Location Date Provider Diagnosis [facility] [address] [place] [facility] [place] [address] 08/17/2024 Giovanny Hoy Cardiac aneurysm I25 .3 and Memory change R41.3 [facility] [address] [place] [facility] [address] 11/20/2024 Giovanny Hoy TIA (transient ische cricket attack) G45.9 ; Chest pain R07.9 and Right sided weakness M62.81 [facility] [address] [place] [facility] [place] [address] 08/15/2024 Giovanny Hoy Abnormal chest x-ray R93.89 [facility] [address] [facility] [place] [address] 08/21/2024 Giovanny Longy [facility] [address] [facility] [address] 08/29/2024 Giovanny Hoy Cardiac aneurysm I25 .3 [facility] [address] [facility] [place] [address] 09/28/2024 Giovanny Ethany [facility] [address] [facility] [place] [address] 10/02/2024 Giovanny Ethany [facility] [address] [facility] [place] [address] 10/02/2024 Giovanny Ethany [facility] [address] [facility] [place] [address] 10/18/2024 Giovanny Ethany [facility] [address] [facility] [place] [address] 11/08/2024 Giovanny y [facility] [address] [facility] [place] [address] 11/14/2024 Giovanny Hoy [facility] [address] [place] [facility] [place] [address] 11/27/2024 Giovanny Hoy Generalized weakness R53.1 [facility] [address] [place] [address] 11/27/[address] [facility] [address] [place] [address] 11/27/[address] [facility] [address] [place] [address] 11/28/[address] [facility] [address] [place] [address] 11/29/[address] [facility] [address] [place] [address] 11/30/2024 Giovanny Moreno TIA (transient isch emic attack) G45.9 and Cardiac aneurysm I25.3 [facility] [address] [place] [address] 12/01/2024 Giovanny [facility] [address] [place] [address] 12/04/[address] [facility] [address] [place] [address] 12/14/2024 Giovanny [facility] [address] [place] [address] 12/28/2024 Giovanny Moreno Assessments Encounter Date Diagnosis (ICD Code) Assessment Notes Treatment Notes Treatment Clinical Notes Section Notes 08/17/2024 Memory change (ICD-10 - R41.3) 08/17/2024 Cardiac aneurysm (ICD-10 - I25.3) 11/20/2024 Chest pain (ICD-10 - R07.9) 11/20/2024 TIA (transient ischemic attack) (ICD-10 - G45.9) 08/15/2024 Abnormal chest x-ray (ICD-10 - R93.89) 08/29/2024 Cardiac aneurysm (ICD-10 - I25.3) 11/27/2024 Generalized weakness (ICD-10 - R53.1) 11/30/2024 TIA (transient ischemic attack) (ICD-10 - G45.9) 11/30/2024 Cardiac aneurysm (ICD-10 - I25.3) 11/20/2024 Right sided weakness (ICD-10 - M62.81) Plan Of Treatment Pending Test Test Name Order Date CMP (COMPLETE METABOLIC PANEL) 4 CMP (COMPLETE METABOLIC PANEL) 4 UA (URINALYSIS, COMPLETE) 09/21/2022 CULTURE, URINE w SENSITIVITY 09/21/2022 HEMOGLOBIN A1C (GLYCO) 08/06/2023 HEMOGLOBIN A1C (GLYCO) 08/17/2024 HEMOGLOBIN A1C (GLYCO) 10/27/2023 IRON, TOTAL 08/17/2024 IRON, TOTAL 10/27/2023 IRON, TOTAL 08/06/2023 LIPID PANEL (CHOL/TRIG/HDL/LDL) 08/06/19 24 LIPID PANEL (CHOL/TRIG/HDL/LDL) 10/27/19 24 LIPID PANEL [...] [place] 08/09/2023 CT CHEST W CON 08/15/2024 MRI BRAIN WO CON 11/20/2024 XR LSPINE 2_3 VIEWS 08/06/2023 THYROID PANEL (T4/TSH/FREE T3) 4 THYROID PANEL (T4/TSH/FREE T3) 4 THYROID PANEL (T4/TSH/FREE T3) 4 THYROID PANEL (T4/TSH/FREE T3) 5 CMP (COMP MET LOPEZ) w/eGFR CKD-EPI 2024 Insurance Providers Payer Name Payer Address Payer Phone Subscriber Number Group Number Insured Name Patient Relationship to Insured Coverage Start Date Coverage End Date [employer]OSS [address] [place] [address] [id number] Nahum Prieto Self - patient is [...] K91.1 Palpitations R00.2 Surgical History Surgery Date(Month/Year) Breast lumpectomy Tubal and ablation Gallbladder
--- OUTSIDE RECORDS SUMMARY | 2025-01-02 12:56 | XMS_ITS | Encounter Summary ---
Author Organization [facility] Address [address] [place] [address] Care Team Providers Care Licensed Clinical Social Worker Name Role Phone Abhay Moreno MD Primary Care Provider [phone] Linda Pastrana MD Unavailable [phone] Encounter Details Date Type Department Care Team (Late st Contact Info) Description 12/14/2024 Telephone [facility] [address] [place] [address] Yaa Mac MA Social History [...] Recorded Patient Health Questionnaire-2 Score 0 10/19/2024 [place] Safety & Environment Answer Date Rec orded [...] Description 01/22/2025 9:45 AM EDT Office Visit [facility] [address] [place] [address] Chintan Ragland MD [address] [facility] [address] [facility] [place] [address] documented as of this encounter Visit Diagnoses Not on filedocumented in this encounter Care Teams Licensed Clinical Social Worker Relationship Specialty Start Date End Date Abhay Moreno MD [address] [facility] [address] [address] PCP - General 07/14/23 Linda Pastrana MD [address] [place] [address] Consulting Physician Hematology and Oncology 07/14/23 documented as of this encounter
--- OUTSIDE RECORDS SUMMARY | 2025-01-02 12:56 | XMS_ITS | Encounter Summary ---
Author Organization [facility] Address [address] [facility], [address] [place] [address] Care Team Providers Care Electronic Publisher Name Role Phone Abhay Moreno MD Primary Care Provider [phone] Encounter Details Date Type Department Care Team (Late Contact Info) Description 03/11/2023 Orders Only [facility] Part of [address] [place] [id number] Provider, MD Vinay Social History Tobacco Use [...] Upcoming Encounters Date Type Department Care Team ([facility] Contact Info) Description 01/04/2025 10:00 AM EDT Appointment [facility] [address] [place] [address] 01/08/2025 10:00 AM EDT Appointment [facility] [address] [place] [address] 01/09/2025 10:00 AM EDT Appointment [facility] [address] [place] [address] 01/11/2025 10:00 AM EDT Appointment [facility] [address] [place] [address] 01/15/2025 10:00 AM EDT Appointment [facility] [address] [facility] [place] [address] 01/16/2025 10:00 AM EDT Appointment [facility] [address] [facility] [place] [address] 01/18/2025 10:00 AM EDT Appointment [facility] [address] [facility] [place] [address] 01/22/2025 10:00 AM EDT Appointment [facility] [address] [facility] [place] [address] 01/23/2025 10:00 AM EDT Appointment [facility] [address] [facility] [place] [address] 01/25/2025 10:00 AM EDT Appointment [facility] [address] [facility] [place] [address] 01/29/2025 10:00 AM EDT Appointment [facility] [address] [facility] [place] [address] 01/30/2025 10:00 AM EDT Appointment [facility] [address] [facility] [place] [address] 02/01/2025 10:00 AM EDT Appointment [facility] [address] [facility] [place] [address] 02/05/2025 10:00 AM EDT Appointment [facility] [address] [facility] [place] [address] 02/06/2025 10:00 AM EDT Appointment [facility] [address] [place] [address] 02/08/2025 10:00 AM EDT Appointment [facility] [address] [facility] [place] [address] 02/12/2025 10:00 AM EDT Appointment [facility] [address] [facility] [place] [address] 02/13/2025 10:00 AM EDT Appointment [facility] [address] [place] [address] 02/15/2025 10:00 AM EDT Appointment [facility] [address] [facility] [place] [address] 02/19/2025 10:00 AM EDT Appointment [facility] [address] [place] [address] 02/20/2025 10:00 AM EDT Appointment [facility] [address] [facility] [place] [address] 02/22/2025 10:00 AM EDT Appointment [facility] [address] [facility] [place] [address] 02/26/2025 10:00 AM EDT Appointment [facility] [address] [facility] [place] [address] 02/27/2025 10:00 AM EDT Appointment [facility] [address] [place] [address] 03/01/2025 10:00 AM EDT Appointment [facility] [address] [place] [address] 03/05/2025 10:00 AM EDT Appointment [facility] [address] [place] [address] 03/06/2025 10:00 AM EDT Appointment [facility] [address] [place] [address] 03/08/2025 10:00 AM EDT Appointment [facility] [address] [place] [address] 03/12/2025 10:00 AM EDT Appointment [facility] [address] [place] [address] 03/13/2025 10:00 AM EDT Appointment [facility] [address] [place] [address] 03/15/2025 10:00 AM EDT Appointment [facility] [address] [place] [address] 03/19/2025 10:00 AM EDT Appointment [facility] [address] [place] [address] 03/20/2025 10:00 AM EDT Appointment [facility] [address] [place] [address] 03/22/2025 10:00 AM EDT Appointment [facility] [address] [place] [address] 03/26/2025 10:00 AM EDT Appointment [facility] [address] [place] [address] 03/27/2025 10:00 AM EDT Appointment [facility] [address] [place] [address] 03/29/2025 10:00 AM EDT Appointment [facility] [address] [facility] [place] [address] 04/02/2025 10:00 AM EDT Appointment [facility] [address] [facility] [place] [address] 04/03/2025 10:00 AM EDT Appointment [facility] [address] [facility] [place] [address] 04/05/2025 10:00 AM EDT Appointment [facility] [address] [facility] [place] [address] 04/09/2025 10:00 AM EDT Appointment [facility] [address] [facility] [place] [address] 04/10/2025 10:00 AM EDT Appointment [facility] [address] [facility] [place] [address] 04/12/2025 10:00 AM EDT Appointment [facility] [address] [facility] [place] [address] 04/16/2025 10:00 AM EST Appointment [facility] [address] [facility] [place] [address] documented as of this encounter Procedures Procedure [...] Region Laterality Modality Computed Tomogra phy Result [facility] Provider MD CRONIN CT ORDERABLES Final R esult * CTA CHEST W WO CONTRAST (09/04/2022) Anatomical Region Laterality Modality Chest, Vascular Computed Tomogra phy Result [facility] Provider MD CRONIN CT ORDERABLES Final R esult * US Renal Limited (09/01/2022) Anatomical Region Laterality Modality Abdomen Other Result [facility] Provider MD CRONIN US ORDERABLES Final R esult * XR Abdomen Kub 1 VW (08/26/2022) Anatomical Region Laterality Modality Radiographic Izabel ging Result [facility] Provider MD CRONIN DIAGNOSTIC IMAGING OR DERABLES Final Result * XR CHEST 1 VIEW (09/04/2021) Anatomical Region Laterality Modality Chest Radiographic Izabel ging Result [facility] Provider MD CRONIN DIAGNOSTIC IMAGING OR DERABLES Final Result * CHG RADEX SPINE CERVICAL 4 OR 5 VIEWS (12/10/2020) Result [facility] Provider NV IMAGING Final Res ult * XR Shoulder Left 2 VW (12/10/2020) Anatomical Region Laterality Modality Radiographic Izabel ging Result [facility] Provider MD CRONIN DIAGNOSTIC IMAGING OR DERABLES Final Result * XR KNEE RIGHT (MIN 4 VIEWS) (01/09/2019) Anatomical Region Laterality Modality Thigh, Knee, Leg Radiographic Im aging Result [facility] Provider MD CRONIN DIAGNOSTIC IMAGING OR DERABLES Final Result * US Pelvis Non OB Limited Follow Up (02/16/2018) Anatomical Region Laterality Modality Other [facility] Provider MD CRONIN US ORDERABLES Final R esult * HCHG X-RAY LUMBAR SPINE 4 VW (09/29/2017) Result [facility] Provider MD BRITO IMAGING Final Res ult * XR SACRUM COCCYX 2 VW (09/29/2017) Anatomical Region Laterality Modality Radiographic Izabel ging Result [facility] Provider MD CRONIN DIAGNOSTIC IMAGING OR DERABLES Final Result * CT Abdomen Pelvis W Contrast (06/03/2016) Anatomical Region Laterality Modality Computed Tomogra phy Result [facility] Provider MD CRONIN CT ORDERABLES Final R esult * JODEE DIAGNOSTIC W CAD BILATERAL (02/10/2013) Anatomical Region Laterality Modality Breast Bilateral Mammography Result [facility] Provider MD CRONIN MAMMOGRAPHY ORDERABLE S Final Result * JODEE DIAGNOSTIC W CAD BILATERAL (01/27/2011) Anatomical Region Laterality Modality Breast Bilateral Mammography Result [facility] Provider MD CRONIN MAMMOGRAPHY ORDERABLE S Final Result documented in this encounter Visit Diagnoses Not on filedocumented in this encounter Care Teams Electronic Publisher Relationship Specialty Start Date End Date Abhay Moreno MD [address] [place] [address] PCP - General 10/13/12 documented as of this encounter
--- OUTSIDE RECORDS SUMMARY | 2025-01-02 12:56 | XMS_ITS | Encounter Summary ---
Author Organization [facility] Address [address] [place] [address] Care Team Providers Care Doctor Of Veterinary Medicine Name Role Phone Abhay Moreno MD Primary Care Provider [phone] Linda Pastrana MD Unavailable [phone] Reason for Referral * Consultation (Routine) - Pending Review Specialty Diagnoses / Procedures Referred By Contnito bobby Referred To Contact Cardiopulmonary Rehab Diagnoses Chronic systolic heart failure (CMS/HCC) Procedures NM OFFICE/OUTPATIENT [facility] MDM 60 MINUTES Chintan Ragland MD [address] [facility] [address] [facility] [place] [address] Phone: tel: fax: Referral ID Status Reason Start Date Expiration Date Visits Requested Visits Authorized [id number] Pending Review Specialty Services Required 12/20/2024 12/20/2025 1 1 Encounter Details Date Type Department Care Team (Late st Contact Info) Description 12/20/2024 Orders Only [facility] at [facility] [address] [place] [address] Yaa Mac MA Chronic systolic heart failure (CMS/HCC) (Primary Dx) Social History Tobacco Use Types [...] Description 01/22/2025 9:45 AM EDT Office Visit [facility] [address] [place] [address] Chintan Ragland MD [address] [facility] [address] [facility] [place] [address] Scheduled Referrals Name Type Priority Associated Diagnoses Order Schedule Ambulatory referral to Cardiac Rehab Outpatient Referral Routine Chronic systolic heart failure (CMS/HCC) Expected: 12/20/2024 (Approximate), Expires: 06/22/2025 documented as of this encounter Visit Diagnoses Diagnosis Chronic systolic heart failure (CMS/HCC)- Primary Chronic systolic heart failure documented in this encounter Care Teams Doctor Of Veterinary Medicine Relationship Specialty Start Date End Date Abhay Moreno MD [address] [place] [address] PCP - General 07/14/23 Linda Pastrana MD [address] [place] [address] Consulting Physician Hematology and Oncology 07/14/23 documented as of this encounter
--- OUTSIDE RECORDS SUMMARY | 2025-01-02 12:56 | XMS_ITS | Encounter Summary ---
Author Organization [facility] Address [address] [place] [address] Care Team Providers Care Meat And Poultry Inspector Name Role Phone Abhay Moreno MD Primary Care Provider [phone] Linda Pastrana MD Unavailable [phone] Reason for Visit * Reason Onset Date Comments MRI 12/26/2024 Encounter Details Date Type Department Care Team (Late Contact Info) Description 12/26/2024 Telephone [facility] [address] [place] [phone] Lashay Parikh MA MRI Social History Tobacco Use Types Packs/Day Years [...] Recorded Patient Health Questionnaire-2 Score 0 10/19/2024 [place] Safety & Environment Answer Date Rec orded [...] encounter Miscellaneous Notes * Telephone Encounter - Lashay Parikh MA - 12/26/2024 10:28 AM EDT Call placed to [place] they stated that they are still getting patient pre cert completed once it is done they will schedule appt with patient. * Telephone Encounter - Lashay Parikh MA - 12/26/2024 10:27 AM EDT Will you call [place] and see if patients cervical spine MRI has been scheduled/completed. documented in this encounter Plan of Treatment Upcoming Encounters Date Type Department Care Team (Late st Contact Info) Description 01/22/2025 9:45 AM EDT Office Visit [facility] [address] [place] [address] Chintan Ragland MD [address] [facility] [address] [facility] [place] [phone] documented as of this encounter Visit Diagnoses Not on filedocumented in this encounter Care Teams Meat And Poultry Inspector Relationship Specialty Start Date End Date Abhay Moreno MD [address] [facility] [place] [address] PCP - General 07/14/23 Linda Pastrana MD [address] [place] [phone] Consulting Physician Hematology and Oncology 07/14/23 documented as of this encounter
--- OUTSIDE RECORDS SUMMARY | 2025-01-02 12:56 | XMS_ITS | Encounter Summary ---
Author Organization [facility] Address [address], [address] [place] [address] Care Team Providers Care Operations Supervisor Name Role Phone Abhay Moreno MD Primary Care Provider [phone] Encounter Details Date Type Department Care Team (Late Contact Info) Description 03/15/2023 Orders Only [facility]ST[facility]ECOLOGY Part of [address] [place] [id number] Provider, MD Vinay Social History Tobacco Use [...] Upcoming Encounters Date Type Department Care Team ([facility] Contact Info) Description 01/04/2025 10:00 AM EDT Appointment [facility] [address] [place] [address] 01/08/2025 10:00 AM EDT Appointment [facility] [address] [place] [address] 01/09/2025 10:00 AM EDT Appointment [facility] [address] [place] [address] 01/11/2025 10:00 AM EDT Appointment [facility] [address] [place] [address] 01/15/2025 10:00 AM EDT Appointment [facility] [address] [place] [address] 01/16/2025 10:00 AM EDT Appointment [facility] [address] [place] [address] 01/18/2025 10:00 AM EDT Appointment [facility] [address] [place] [address] 01/22/2025 10:00 AM EDT Appointment [facility] [address] [place] [address] 01/23/2025 10:00 AM EDT Appointment [facility] [address] [facility] [address] 01/25/2025 10:00 AM EDT Appointment [facility] [address] [place] [address] 01/29/2025 10:00 AM EDT Appointment [facility] [address] [place] [address] 01/30/2025 10:00 AM EDT Appointment [facility] [address] [place] [address] 02/01/2025 10:00 AM EDT Appointment [facility] [address] [place] [address] 02/05/2025 10:00 AM EDT Appointment [facility] [address] [place] [address] 02/06/2025 10:00 AM EDT Appointment [facility] [address] [place] [address] 02/08/2025 10:00 AM EDT Appointment [facility] [address] [facility] [address] 02/12/2025 10:00 AM EDT Appointment [facility] [address] [place] [address] 02/13/2025 10:00 AM EDT Appointment [facility] [address] [place] [address] 02/15/2025 10:00 AM EDT Appointment [facility] [address] [place] [address] 02/19/2025 10:00 AM EDT Appointment [facility] [address] [place] [address] 02/20/2025 10:00 AM EDT Appointment [facility] [address] [facility] [address] 02/22/2025 10:00 AM EDT Appointment [facility] [address] [place] [address] 02/26/2025 10:00 AM EDT Appointment [facility] [address] [place] [address] 02/27/2025 10:00 AM EDT Appointment [facility] [address] [place] [address] 03/01/2025 10:00 AM EDT Appointment [facility] [address] [address] 03/05/2025 10:00 AM EDT Appointment [facility] [address] [place] [address] 03/06/2025 10:00 AM EDT Appointment [facility] [address] [place] [address] 03/08/2025 10:00 AM EDT Appointment [facility] [address] [place] [address] 03/12/2025 10:00 AM EDT Appointment [facility] [address] [place] [address] 03/13/2025 10:00 AM EDT Appointment [facility] [address] [place] [address] 03/15/2025 10:00 AM EDT Appointment [facility] [address] [place] [address] 03/19/2025 10:00 AM EDT Appointment [facility] [address] [place] [address] 03/20/2025 10:00 AM EDT Appointment [facility] [address] [place] [address] 03/22/2025 10:00 AM EDT Appointment [facility] [address] [place] [address] 03/26/2025 10:00 AM EDT Appointment [facility] [address] [place] [address] 03/27/2025 10:00 AM EDT Appointment [facility] [address] [place] [address] 03/29/2025 10:00 AM EDT Appointment [facility] [address] [place] [address] 04/02/2025 10:00 AM EDT Appointment [facility] [address] [place] [address] 04/03/2025 10:00 AM EDT Appointment [facility] [address] [place] [address] 04/05/2025 10:00 AM EDT Appointment [facility] [address] [place] [address] 04/09/2025 10:00 AM EDT Appointment [facility] [address] [place] [address] 04/10/2025 10:00 AM EDT Appointment [facility] [address] [facility] [address] [place] [address] 04/12/2025 10:00 AM EDT Appointment [facility] [address] [place] [address] 04/16/2025 10:00 AM EST Appointment [facility] [address] [facility] [place] [address] documented as of this encounter Procedures Procedure [...] on filedocumented in this encounter Care Teams Operations Supervisor Relationship Specialty Start Date End Date Abhay Moreno MD [address] [place] [address] PCP - General 10/13/12 documented as of this encounter
== END 2025-01-02 12:53 | disposition home or self-care (01) ==
LOC: MRI 12:52
PROVIDERS: PCP Family Medicine
DX: M48.02 Spinal stenosis, cervical region (principal); M50.30 Other cervical disc degeneration, unspecified cervical region
CPT/HCPCS: 72141

== ENCOUNTER 2025-01-31 11:06 | Outpatient (OUT) | payer BC, OTHER, SELFPAY ==
--- OUTSIDE RECORDS SUMMARY | 2023-10-21 11:45 | XMS_ITS | Continuity of Care Document ---
Author Organization [facility] Address [address] [place] [address] Phone Care Team Providers Care Office Machine Inspector Name Role Phone Ari Rust Unavailable Unavailable Procedures Procedure Date TB Read TB INTRADERMAL TEST Advance Directives Directive Yes / No Effective Date File Name No Information Encounters Encounter Description Practice Location Reason(s) For Visit Diagnoses Date Provider Providers Copied on Encounter [facility], [address] [place] [address], [id number], tel:[phone] [facility] No Information Earnestine Zendejas. [address] [place], [place], [id number], [place]. tel:[phone] [facility], [address], [place], [id number], tel:[phone] [facility] Encounter for screening for respiratory tuberculosis Earnestine Zendejas. [address] [place], [place], [id number], [place]. tel:[phone] Family History Family Member Type Diagnosis Age At Onset No Information Payers Payer name Insurance type Covered green party ID Authoriza tion(s) No Information Social History Type Description Quantity Date Captured Comments Alcohol Use Details Unknown Caffeine Use Details Unknown Tobacco Use Status No Information Smoking Status No Information Sex Female Sexual Orientation Straight or heterosexual October Gender Identity Female Chief Complaint And Reason For Visit No Information Reason For Referral Reason For Referral No Information Plan Of Treatment Date Type Action Status Goal Depression screening. Due on due Goal PRAPARE ASSESSMENT. Due on due Goal Tdap Vaccine. Due on 2023 due Goal HPV. Due on due Goal RLP. Due on due Goal Lipid panel. Due on due Goal Hepatitis C screening. Due o n due Goal Tdap. Due on due Goal Influenza vaccine. Due on due Goal Unhealthy drug use screening . Due on due Goal Lipid panel. Due on due Goal HPV. Due on due Goal Unhealthy drug use screening . Due on due Goal Hepatitis C screening. Due o n due Goal Depression screening. Due on due Goal RLP. Due on due Goal Tdap Vaccine. Due on 2023 due Goal Tdap. Due on due Goal PRAPARE ASSESSMENT. Due on due Goal Influenza vaccine. Due on due History Of Present Illness Encounter Date Complaint History Of Prese nt Illness No Information Functional Status Date Functional Assessmen t No Information Instructions Date Instruction Additional Infor mation No Information Assessments Type Assessment Date No Information Patient Care Teams Name Effective Dates (start - stop) Status Members No Information
--- OUTSIDE RECORDS SUMMARY | 2024-10-30 14:30 | XMS_ITS | Encounter Summary ---
Author Organization [facility] Address [address] [place] [address] Care Team Providers Care Commissioning Manager Name Role Phone Abhay Moreno MD Primary Care Provider [phone] Linda Pastrana MD Unavailable [phone] Encounter Details Date Type Department Care Team (Late st Contact Info) Description 10/30/2024 2:30 PM EDT Follow-Up [facility] [address] [place] [address] Chintan Ragland MD [address] [facility] [place] [address] [facility] [place] [address] Chronic systolic congestive heart failure (CMS/HCC) (Primary Dx); Pericardial cyst; Nonischemic cardiomyopathy (CMS/HCC) Social History Tobacco Use Types Packs/Day Years Used Date Smoking Tobacco: Every Day Cigarettes 0.5 20 Smokeless Tobacco: Never Alcohol Use Standard Drinks/Week Comments Not Currently 0 (1 standard drink = 0.6 oz pur e alcohol) Humiliation, Afraid, Rape, and Kick questionnair e Answer Date Recorded Within the last year, have y ou been afraid of your partner or ex-partner? No 07/14/2023 Within the last year, have y ou been humiliated or emotionally abused in other ways by your partner or ex-partner? No Within the last year, have y ou been kicked, hit, slapped, or otherwise physically hurt by your partner or ex-partner? No 07/14/2023 Within the last year, have y ou been raped or forced to have any kind of sexual activity by your partner or ex-partner? No 07/14/2023 PHQ-2 Answer Date Recorded Patient Health Questionnaire-2 Score 0 10/19/2024 [place] Safety & Environment Answer Date Rec orded Within the last year, have y ou been afraid of your partner or ex-partner? No 07/14/2023 Within the last year, have y ou been humiliated or emotionally abused in other ways by your partner or ex-partner? No 07/14/2023 Within the last year, have y ou been kicked, hit, slapped, or otherwise physically hurt by your partner or ex-partner? No 07/14/2023 Within the last year, have y ou been raped or forced to have any kind of sexual activity by your partner or ex-partner? No 07/14/2023 Physically or Sexually Abused Not on file Comments No Sex and Gender Information Value Date Recorded Sex Assigned at Female 07/14/2023 2:59 PM EST Legal Sex Female 10:34 PM EDT Gender Identity Female 07/14/2023 2:59 PM EST Sexual Orientation Heterosexual or Straight 06/16 2:59 PM EST documented as of this encounter Last Filed Vital Signs Vital Sign Reading Time Taken Comments Blood Pressure 137/81 10/30/2024 2:32 PM EDT Pulse 72 10/30/2024 2:32 PM EDT Temperature - - Respiratory Rate - - Oxygen Saturation 98% 10/30/2024 2:32 PM EDT Inhaled Oxygen Concentration - - Weight 58.5 kg (129 lb) 10/30/2024 2:32 PM EDT Height 167.6 cm (5' 6 ) 10/30/2024 2:32 PM EDT Body Mass Index 20.82 10/30/2024 2:32 PM EDT documented in this encounter Progress Notes * Chintan Ragland MD - 10/30/2024 2:30 PM EDT Images from the original note were not included. [facility] Subjective Tammy Roberts is a 44 y.o. year old female patient being seen for a follow up cath. Patient states she feels exhausted, SOB, chest pain, palpitations Patient states she has an increase in anxiety since she stopped smoking weed and decreased cigarettes. Patient complains of chronic diarrhea sinceincreasing water intake. Patient denies leg swelling. Patient states she was in [facility] yesterday for chest pain and profuse sweating, and SOB. Patient Active Problem List Diagnosis Uterine leiomyoma [...] Lumbar radiculopathy Vitamin D deficiency, unspecified Weakness Acute systolic congestive heart failure (CMS/HCC) Shortness of breath Abnormal findings on diagnostic imaging of heart and coronary circulation Pericardial cyst Transient ischemic attack Family History Problem Relation Name Age of [...] Drug use: Yes Types: Marijuana Comment: smokes 3 to 5 joints a day HPI Initial visit 09/29/2024: Tammy is seen as a new patient referred [...] is an active smoker and uses marijuana. Visit of 10/30/2024: She is seen in follow-up. After last visit I proceeded with cardiac catheterization to investigate her LV systolic dysfunction. This showed normal coronary arteries. In addition I had her evaluated by cardiothoracic surgery because of the pericardial cyst. Today she reports that she continues to have symptoms of chest pain and shortness of breath. She was evaluated yesterday in the emergency room at [facility] due to the above symptoms. Evaluation was negative. She also complained of pain in the right upper arm after the cardiac catheterization procedure. Shehas tenderness in the upper arm and in the forearm. Review of Systems HENT: Positive for tinnitus. Cardiovascular: Positive for chest pain, dyspnea on exertion, irregular heartbeat, palpitations andsyncope. Respiratory: Positive for shortness of breath. Neurological: Positive for dizziness, headaches and light-headedness. Psychiatric/Behavioral: Positive for altered mental status ( confusion ). Objective Visit Vitals BP 137/81 (BP Location: Left arm, Patient Position: Sitting) Pulse 72 Ht 1.676 m (5' 6 ) Wt 58.5 kg (129 lb) SpO2 98% BMI 20.82 kg/m?? OB Status Ablation Smoking Status Every Day BSA 1.65 m?? Physical Exam Constitutional: Appearance: She is well-developed. [...] General: No swelling. Cervical back: Neck supple. Comments: Right arm mildly tender throughout its length. Right radial pulse felt well. Perfusion tothe arm and hand is normal. Access site well-healed with no hematoma. Skin: General: Skin is warm and dry. Neurological: General: No focal deficit present. Mental Status: She is alert and oriented to person, place, and time. Psychiatric: Mood and Affect: Mood normal. Behavior: Behavior is cooperative. Judgment: Judgment normal. Allergies Allergies Allergen Reactions Desonide Other reaction(s): Other (See Comments) Unknown Fentanyl Anaphylaxis Ibuprofen Other reaction(s): Other (See Comments) Rectal bleed Latex Other reaction(s): Hives, Other (See Comments) Burning Penicillins Anaphylaxis and Rash Other reaction(s): other Prednisone Swelling Adhesive Other reaction(s): other Morphine Other reaction(s): Other (See Comments) Labored breathing, chest tightening. Wethc-Vhfmt-Motwqxu-Pramoxine Unknown Bacitracin Rash Cephalexin Nausea And Vomiting Other reaction(s): Unknown Medications Current Outpatient Medications: aspirin 81 mg chewable tablet, Chew 1 tablet (81 mg) in the morning., Disp: 90 tablet, Rfl: 3 losartan (Cozaar) 50 mg tablet, Take 1 tablet (50 mg) by mouth in the morning., Disp: 90 tablet, Rfl: 3 ALPRAZolam (Xanax) 0.5 mg tablet, 0.5 mg if needed in the morning and at bedtime., Disp: , Rfl: cholecalciferol, vitamin D3, 50 mcg (2,000 unit) capsule, Take 1 capsule by mouth in the morning. (Patient not taking: Reported on 01/22/2025), Disp: , Rfl: diazePAM (Valium) 5 mg tablet, Take 5 mg by mouth 1 (one) time. (Patient not taking: Reported on 01/22/2025), Disp: , Rfl: meclizine 25 mg tablet,chewable, every 12 (twelve) hours., Disp: , Rfl: metoprolol succinate XL (Toprol-XL) 50 mg 24 hr tablet, Take 1 tablet (50 mg) by mouth in the morning. Do not crush or chew., Disp: 90 tablet, Rfl: 3 predniSONE (Deltasone) 20 mg tablet, 1 (one) time each day at the same time. (Patient not taking: Reported on 01/22/2025), Disp: , Rfl: spironolactone (Aldactone) 25 mg tablet, Take 0.5 tablets (12.5 mg) by mouth in the morning. (Patient taking differently: Take 50 mg by mouth in the morning.), Disp: 45 tablet, Rfl: 3 tamsulosin (Flomax) 0.4 mg 24 hr capsule, 1 capsule 1 (one) time each day at the same time. (Patient not taking: Reported on 01/22/2025), Disp: , Rfl: tiZANidine (Zanaflex) 4 mg tablet, 4 mg if needed in the morning, at noon, and at bedtime. (Patientnot taking: Reported on 01/22/2025), Disp: , Rfl: triamcinolone (Kenalog) 0.1 % cream, 1 Application. (Patient not taking: Reported on 01/22/2025), Disp: , Rfl: valACYclovir (Valtrex) 1 gram tablet, 1 (one) time each day at the same time. (Patient not taking: Reported on 01/22/2025), Disp: , Rfl: Recent Labs Admission on 10/20/2024, Discharged on 10/20/2024 Component Date Value Preg Test, Ur 10/20/2024 Negative QC Pass/Fail 10/20/2024 Passed QC LOT # 10/20/2024 [id number] QC Expiration Date 10/20/2024 07/30/2025 Ventricular Rate 10/20/2024 90 Atrial Rate 10/20/2024 90 PA Interval 10/20/2024 128 QRS DURATION 10/20/2024 76 QT Interval 10/20/2024 364 QTC CALCULATION(BAZETT) 10/20/2024 445 P Hunter 10/20/2024 76 R-Hunter 10/20/2024 40 T Wave Hunter 10/20/2024 44 EXPMBO32% 10/20/2024 71.4 (A) QC Pass/Fail 10/20/2024 Passed QC LOT # 10/20/2024 [id number] QC Expiration Date 10/20/2024 73,126 SAMPLESITE 10/20/2024 nl Blood testing 08/21/2024: Hemoglobin 14.3, platelets 248, potassium 3.7, BUN 8, creatinine 0.8, EGFRmore than 60, hemoglobin A1c 5.2%, iron 100, LFTs normal, triglycerides 67, cholesterol 193, LDL 110, HDL 70. TSH 0.9, T4 and free T3 normal. Blood testing 10/29/2024: High-sensitivity troponin less than 6, hemoglobin 14.1, platelets 270, D-dimer 0.28, NT proBNP 87, potassium 4, BUN 9, creatinine 0.8, EGFR more than 70. Imaging and other tests Cardiac catheterization 10/20/2024: Impression/Findings: Normal coronary angiogram. Low filling and pulmonary pressures. Low normal cardiac output. Findings are consistent with non-ischemic cardiomyopathy. Plan: Guideline directed medical therapy for heart failure. Risk factor control. Follow up in Cardiology Clinic. ECG 10/20/2024: Normal sinus rhythm Normal ECG ECG 09/29/2024: Normal sinus rhythm, normal ECG. Echocardiogram 09/27/2024: Severely reduced LV systolic function in a global fashion, EF 25%. Grade 1 diastolic dysfunction. Trivial aortic regurgitation. Free space seen along the right atrium may represent pericardial cyst or localized pericardial effusion compatible with abnormality noted on chest CT done 08/29/2024. CT chest with IV contrast 08/29/2024: The heart is not enlarged. There is an elongated hypodense area which extends from the anterior mediastinum down to the right pericardial region measuring approximately 9.8 x 4.6 x 3.7 cm in size Hounsfield measurements suggest this is fluid it might be a pericardial cyst. It would correlate with the area of concern on chest x-ray. No aortic aneurysm or dissection is seen. There is no mediastinal or hilar lymphadenopathy. There are couple nodular asymmetriesat the superior medial left breast measuring up to 13 mm. Chest x-ray 08/11/2024: Abnormal contour of the right heart border. Complete evaluation with CT chest with IV contrast is recommended. Assessment/Plan Diagnoses and all orders for this visit: Chronic systolic congestive heart failure (CMS/HCC) - metoprolol succinate XL (Toprol-XL) 50 mg 24 hr tablet; Take 1 tablet (50 mg) by mouth in the morning. Do not crush or chew. - spironolactone (Aldactone) 25 mg tablet; Take 0.5 tablets (12.5 mg) by mouth in the morning. (Patient taking differently: Take 50 mg by mouth in the morning.) Pericardial cyst Nonischemic cardiomyopathy (CMS/HCC) 1. Chronic systolic heart failure: Currently well compensated. This is demonstrated by recent BNP level being normal yesterday and the recent cardiac catheterization showing no elevation of filling and pulmonary pressures. I will continue losartan 50 mg daily, I will increase metoprolol succinate to 50 mg daily and add spironolactone 12.5 mg once daily. I will not add SGLT2 inhibitor given upcoming surgery. In the future she will need follow-up echocardiogram to follow-up on ventricular systolic function. 2. Pericardial cyst: This is very symptomatic. I have reviewed the images of the echocardiogram Vania think that the cyst compresses the right-sided chambers especially the right atrium. I think thiscyst should be removed. I discussed with Dr. Irving from cardiothoracic surgery. We talked about percutaneous aspiration versus surgical removal. With percutaneous aspiration there is a high chance of recurrence. We are favoring surgical removal. She will see cardiothoracic surgery in follow-up to planned the surgery. I will plan on seeing her in follow-up after the cardiac surgery. Follow up in about 3 months (around 01/30/2025). 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
--- OUTSIDE RECORDS SUMMARY | 2024-12-20 09:00 | XMS_ITS | Encounter Summary ---
Author Organization [facility] Address [address] [id number] Care Team Providers Care Winding Lathe Operator Name Role Phone Abhay Moreno MD Primary Care Provider [phone] Source Comments In the event this information is protected by the Federal Confidentiality of Alcohol and Drug AbusePatient Records regulations: The Federal rules restrict any use of the information to criminally investigate or prosecute any alcohol or drug abuse patient.[facility] Reason for Referral * MRI/CT (Routine) - New Request Specialty Diagnoses / Procedures Referred By Mable bobby Referred To Contact MR IMAGING Diagnoses Spinal stenosis of cervical region Procedures MRI CERVICAL SPINE WO IVCON MRI SPINAL CANAL CERVICAL W/O CONTRAST MATRL Johnathan Olivares MD [address] [id number] Phone: tel: fax: MR IMAGING [place] [address] Referral ID Status Reason Start Date Expiration Date Visits Requested Visits Authorized [id number] New Request Auto-Generat ed Referral 12/20/2024 01/19/2026 1 1 Reason for Visit * Reason Comments New Patient Evaluation Cardiac Clearance . Encounter Details Date Type Department Care Team (Late st Contact Info) Description 12/20/2024 9:00 AM EDT Office Visit [facility] [address] [phone] Johnathan Olivares MD [address] [place] [address] Syncope and collapse (Primary Dx); Spinal stenosis of cervical region Social History Tobacco Use Types Packs/Day Years Used Date Smoking Tobacco: Every Day Cigarettes Started: 06/14/1999 Tobacco Cessation:Ready to Q uit: Not Asked; Counseling Given: Not Answered Area Deprivation Index Answer Date Obi rded National Score (1-100), lower number is lower ri sk 79 12/20/2024 State Score (1-10), lower number is lower risk 7 12/20/2024 Data from: https://www.neighborhoodatlas.medicine.[facility].edu/. Last address used for calculation [address] [facility] 12/20/2024 Comments Unknown Sex and Gender Information Value Date Recorded Sex Assigned at Not on file Legal Sex Female 8:07 AM EDT Gender Identity Not on file Sexual Orientation Not on file documented as of this encounter Last Filed Vital Signs Vital Sign Reading Time Taken Comments Blood Pressure 125/62 12/20/2024 8:37 AM EDT Pulse 70 12/20/2024 8:37 AM EDT Temperature 36.7 C (98 F) 12/20/2024 8:37 AM EDT Respiratory Rate 13 12/20/2024 8:37 AM EDT Oxygen Saturation 100% 12/20/2024 8:37 AM EDT Inhaled Oxygen Concentration - - Weight 58.1 kg (128 lb 1.4 oz) 12/20/2024 8:37 A M EDT Height 167.6 cm (5' 6 ) 12/20/2024 8:37 AM EDT Body Mass Index 20.67 12/20/2024 8:37 AM EDT documented in this encounter Progress Notes * Johnathan Olivares MD - 12/20/2024 10:10 AM EDT [facility] Initial Visit PCP: Abhay Moreno [address] [place] [address] Abhay Moreno for an opinion regarding possible TIA. My final recommendations will be communicated back to the requesting physician by way of shared Medical record or letter to requesting physician via US mail. CEREBROVASCULAR HIST[facility] Reason for Visit: - neurological symptoms Date of Last Event: 11/17/2024 Antiplatelets/Anticoagulants: Aspirin Residual Deficits: Motor weakness - ataxia Current PT/OT/ST: None Current Living Situation: Home with spouse Current use of a mobility aid for walking/getting around: Rollator Do you have any planned upcoming surgeries or dental procedures? Yes VATS, Date end of December 2024 Tammy Roberts is a 44-year-old female with a history of asthma, Crohn's disease, dumping syndrome, heart failure, pericardial cyst, and rheumatoid arthritis, presenting for evaluation of possible TIA. Tammy was referred from [facility] for evaluation of a possible TIA. She reports a history of balance issues, lightheadedness, and dizziness, described as both presyncope and room spinning. She also experiences numbness and tingling in her hands and feet, which have been ongoing for some time (approximately 6 months or more). She does not endorse dysarthria or difficulty swallowing. Tammy presented to the ER at [facility] Emergency [facility] on 11/15/2024 after a syncopal episode at home, during which she experienced chest pain and tinnitus. She is unsure how long she was unconscious. She reports that during the episode, she experienced uncontrollable urination. She does not endorse bowel incontinence. Tammy presented to the ER at [facility] on 11/17/2024 after developing dizziness and lightheadedness associated with pain and paresthesias in the right arm and leg. Tammy reports that her symptoms have been gradually worsening over the past six months, since June, when she was diagnosed with heart failure and a pericardial cyst. She underwent a cardiac catheterization on 10/20, after which she began experiencing right-sided weakness. She reports difficulty gripping and lifting her right arm and feels like she is dragging her right foot. She also reports sharp pain in her right arm, which she describes as starting at the site of the catheterization and radiating down her arm. She does not endorse left- sided weakness or facial weakness. Tammy reports that her symptoms have not improved since the cardiac catheterization. She uses a walker for long distances due to shortness of breath and fatigue but does not endorse balance issues. She reports that she gets warm and experiences tunnel vision upon standing. She does not endorse blurry vision at other times. Objective PAST MEDICAL HISTORY Diagnosis Date Asthma (HCC) Chronic systolic (congestive) heart failure (HCC) Crohn's disease (HCC) Degenerative disc disease, cervical Diverticulitis Dumping syndrome Esophageal reflux Herpetic fallon Low back pain Other peripheral vertigo, unspecified ear Palpitations PCOS (polycystic ovarian syndrome) Rheumatoid arthritis (HCC) PAST SURGICAL HISTORY Procedure Laterality Date BREAST LUMPECTOMY HX Left HYSTEROSCOPY ENDOMETRIAL ABLATION LIGATE FALLOPIAN TUBE REMOVAL GALLBLADDER FAMILY HISTORY Problem Relation Age of Onset Diabetes Mother Hypertension Mother Kidney Disease Mother other (Mitral valve prolapse) Mother Aneurysm Maternal Grandfather brain Colon Cancer Maternal Grandfather Heart Attack Maternal Grandfather Social History Tobacco Use Smoking status: Every Day Types: Cigarettes Start date: 06/14/1999 MEDICATIONS Current Outpatient Medications Medication Sig ALPRAZolam (XANAX) 0.25 mg tablet Take 0.25 mg by mouth three times a day as needed. aspirin 81 mg chewable tablet Take 81 mg by mouth once daily. losartan (COZAAR) 50 mg tablet Take 50 mg by mouth once daily. metoprolol succinate ER (TOPROL XL) 50 mg 24 hr tablet Take 50 mg by mouth once daily. tiZANidine (ZANAFLEX) 4 mg tablet Take 4 mg by mouth every 8 hours as needed. Cholecalciferol, Vitamin D3, 50 mcg (2,000 unit) cap Take 1 capsule by mouth every morning. (Patient not taking: Reported on 12/20/2024) meclizine 25 mg chewable tablet(s) Take 25 mg by mouth every 12 hours. (Patient not taking: Reported on 12/20/2024) predniSONE (DELTASONE) 20 mg tablet Take 20 mg by mouth once daily. (Patient not taking: Reported on 12/20/2024) spironolactone (ALDACTONE) 25 mg tablet Take 50 mg by mouth daily at bedtime. (Patient not taking: Reported on 12/20/2024) tamsulosin (FLOMAX) 0.4 mg Take 0.4 mg by mouth once daily. (Patient not taking: Reported on 12/20/2024) valACYclovir (VALTREX) 1 gram tablet Take 1,000 mg by mouth once daily. (Patient not taking: Reported on 12/20/2024) triamcinolone acetonide (KENALOG) 0.1 % cream Apply 1 application to affected area two times a day.(Patient not taking: Reported on 12/20/2024) No current facility-administered medications for this visit. ALLERGIES ALLERGIES Allergen Reactions Desonide Other: See Comments Other reaction(s): Other (See Comments) Unknown Unknown Fentanyl Anaphylaxis Ibuprofen Other: See Comments Other reaction(s): Other (See Comments) Rectal bleed Rectal bleed Latex Other: See Comments Other reaction(s): Hives, Other (See Comments) Burning Burning Penicillins Anaphylaxis, Rash Other reaction(s): other Prednisone Swelling Adhesive Other: See Comments Other reaction(s): other Morphine Other: See Comments Other reaction(s): Other (See Comments) Labored breathing, chest tightening. Labored breathing, chest tightening. Bacitracin Rash Cephalexin Vomiting Other reaction(s): Unknown PHYSICAL EXAMINATION BP 125/62 (BP Site: Right Arm, BP Position: Sitting, BP Cuff Size: Regular Adult) Pulse 70 Temp36.7 ??C (98 ??F) (Temporal) Resp 13 Ht 167.6 cm (5' 6 ) Wt 58.1 kg (128 lb 1.4 oz) SpO2 100% BMI 20.67 kg/m?? Mental Status: Awake, alert, visually attentive. Oriented to person, place, situation, and time. Good insight, judgment, fund of knowledge, short term, immediate, and remote memory, attention span/concentration. Language: Speech and language were clear without dysarthria or aphasia. Good fluency, comprehension, and repetition. Cranial Nerves: Pupils round, fairly equal in size with normal reactivity to light. Cranial nerves intact. No facial weakness or dysarthria noted. Motor: Strength was 5/5 in the left upper and lower extremities. Right upper extremity showed 4/5 strength in the deltoid, biceps, and triceps, with some giveaway weakness noted. Right lower extremity strength was 5/5. Deep Tendon Reflexes: Grade 4+ in bilateral biceps, brachioradialis, triceps, and patella. Bilateral Karissa. Sensory: Sensory exam was grossly intact to pin and light touch in all limbs. Patient reports numbness and tingling in the right upper extremity. Cerebellar: No tremor was noted. [id number] testing was intact bilaterally. Gait: Gait was not normal. Unsteadiness upon standing. Ataxic gait. Diabetes: No results found for: HBA1C DIAGNOSTICS Tests (11/25/2024) EKG: Sinus bradycardia with sinus arrhythmia, otherwise normal (11/15/2024) Holter Monitor: - Duration: 4 days, 21 hours - Sinus rhythm, average heart rate: 68 - PVC burden: <0.01% (5 total PVCs) - No atrial fibrillation (10/20/2024) Cardiac Catheterization: - Normal coronary angiogram - Low filling and pulmonary pressures - Low normal cardiac output - Findings consistent with non-ischemic cardiomyopathy Echocardiogram: Low ejection fraction (~25%) Imaging (November 2024) MRI Brain: Normal study, no acute or chronic infarction (11/15/2024) CT Angiogram (Head and Neck): No large vessel occlusion or aneurysm Patient Entered Questionnaires PROMIS/NeuroQoL Score Percentiles Percentiles provide an indication of how a patient's score ranks in relation to the [place] general population. > 31st percentile is within normal limits or better * < 31st percentile is at least SD worse than population, which may be clinically relevant < 16th percentile is at least 1 SD worse than population and warrants attention Depression Screening: PHQ-9 Scores: PHQ-9 Self-Harm (Item 9) Response: 0 - 9 No to Mild depression 0 - Not at all 10 - 14 Moderate depression 1 - Several Days > 15 Severe depression 2 - More than half the days 3 - Nearly every day Stroke Mechanism and Scales Noncerebrovascular Concern: Yes Details: Patient with ataxia and other neurological symptoms Modified [place] Score: Score: 2 NIH Stroke Scale: LOC: 0 LOC Questions: 0 LOC Commands: 0 LOC Normal Gaze: 0 Visual Alvarez: 0 Facial Palsy: 0 Motor Left Arm: 0 Motor Right Arm: 0 Motor Left Le Motor Right Le Limb Ataxia: 0 Sensory: 0 Language: 0 Dysarthria: 0 Extinction/Neglect: 0 Total Daily NIHSS: 0 ASSESSMENT AND PLAN # Syncope and collapse (R55) Episodes of syncope with associated symptoms of chest pain, tinnitus, and flushing. Cardiac workup including EKG and Holter monitor showed sinus bradycardia with sinus arrhythmia and occasional PVCs,but no atrial fibrillation. Cardiac catheterization revealed normal coronary angiogram and findingsconsistent with non-ischemic cardiomyopathy. From the neurological perspective, her symptoms are suggestive of cerebral hypoperfusion that are likely related to her current cardiac condition. Doubt these are transient ischemic attacks. - Ordered a 2-week Holter monitor to be mailed to the patient's home (Zio patch) - Advised patient to monitor for any further episodes and seek immediate medical attention if they occur. - Discussed the importance of follow-up with cardiology; patient is scheduled to see Dr. Zambrano. # Spinal stenosis of cervical region (M48.02) Symptoms of right-sided weakness, neck pain, and paresthesias in the upper extremities. Physical exam revealed bilateral deltoid weakness, more pronounced on the right, and brisk reflexes. Patient also reports urinary incontinence and poor balance. Symptoms may be related to cervical spine pathology rather than a TIA. - Ordered an MRI of the cervical spine to evaluate for potential spinal stenosis or other cervical spine pathology. - Arranged for the MRI to be performed at [facility]. - Scheduled a follow-up video visit to review MRI results and discuss further management. Recording using [email or web address] software for draft documentation of the visit was discussed with the patient/authorized business services sales representative; all questions welcomed and answered. Patient/authorized business services sales representative agreed to proceed I spent a total of 60 minutes on the date of service which included preparing to see the patient, [id number] patient care, completing clinical documentation, obtaining and/or reviewing separately obtained history, performing a medically appropriate examination, counseling and educating the patient/family/caregiver, and ordering medications, tests, or procedures SIGNATURE Johnathan Olivares MD Staff, [facility] Neurological [place] Abhay Abarca ayaan [address] [place] [address] documented in this encounter Procedure Notes * Chava Enriquez MD - 12/20/2024 8:24 AM EDTAssociated Order(s): OUTSIDE VENDOR CARDIAC OUTPATIENT EXTENDED RHYTHM RECORDING (WITHOUT TELEMETRY) Sinus rhythm throughout All patient triggered events correlated to sinus rhythm. Chava Enriquez MD 01/16/25 12:38 PM EPS Patient Name: Tammy Roberts : 1980 Ordering Provider: JOHNATHAN APPLE Indication: R55 Syncope and collapse Type of Monitor: Extended Monitoring-Zio Patch Enrollment Dates: 12/22/2024-12/25/2024 IRHYTHM FINDINGS: Patient had a min HR of 45 bpm, max HR of 137 bpm, and avg HR of 74 bpm. Predominant underlying rhythm was Sinus Rhythm. Isolated SVEs were rare (<1.0%), and no SVE Couplets or SVE Triplets were present. Isolated VEs were rare (<1.0%), and no VE Couplets or VE Triplets were present. documented in this encounter Plan of Treatment Upcoming Encounters Date Type Department Care Team (Late st Contact Info) Description 02/20/2025 9:00 AM EDT Office Visit Cardiology [address] [place], [place] [phone] Heart Failure 02/20/2025 9:15 AM EDT Procedure Cardiology [address] [place] [address] Heart Failure 02/20/2025 10:15 AM EDT Office Visit Cardiology [address] [place] [id number] Isaac Zambrano MD [address] [place] [address] Heart Failure 02/20/2025 1:00 PM EDT Office Visit Neurology [address] [place] [address] Mina Shelby MD [address] [place] [address] Symptoms of right-sided weakness, neck pain, and paresthesias in the upper extremities - per Dr. Olivares Scheduled Orders Name Type Priority Associated Diagnoses Orde r Schedule MRI CERVICAL SPINE WO IVCON Radiology Routine Spinal stenosis of cervical region 1 Occurrences starting 12/20/2024 until 01/19/2026 documented as of this encounter Procedures Procedure Name Priority Date/Time Associated Diagnosis Comments OUTSIDE VENDOR CARDIAC OUTPATIENT EXTENDED RHYTHM RECORDING (WITHOUT TELEMETRY) Routine 01/09/2025 8:03 PM EDT Syncope and collapse documented in this encounter Results * OUTSIDE VENDOR CARDIAC OUTPATIENT EXTENDED RHYTHM RECORDING (WITHOUT TELEMETRY) (01/09/2025 8:03 PMEDT) 01/09/2025 8:03 PM EDT Narrative Procedure Note Chava Enriquez MD - 12/20/2024 8:24 AM EDT Sinus rhythm throughout All patient triggered events correlated to sinus rhythm. Chava Enriquez MD 01/16/25 12:38 PM EPS Patient Name: Tammy Roberts : 1980 Ordering Provider: JOHNATHAN APPLE Indication: R55 Syncope and collapse Type of Monitor: Extended Monitoring-Zio Patch Enrollment Dates: 12/22/2024-12/25/2024 IRHYTHM FINDINGS: Patient had a min HR of 45 bpm, max HR of 137 bpm, andavg HR of 74 bpm. Predominant underlying rhythm was Sinus Rhythm. IsolatedSVEs were rare (<1.0%), and no SVE Couplets or SVE Triplets were present.Isolated VEs were rare (<1.0%), and no VE Couplets or VE Triplets werepresent. us Johnathan Olivares MD HOLTER Final Result [facility] C[facility] documented in this encounter Visit Diagnoses Diagnosis Syncope and collapse- Primary Spinal stenosis of cervical region Spinal stenosis in cervical region documented in this encounter Care Teams Winding Lathe Operator Relationship Specialty Start Date End Date Abhay Moreno MD [address] [place] [address] PCP - General Family Medicine 12/19/24 documented as of this encounter
--- OUTSIDE RECORDS SUMMARY | 2025-01-16 09:54 | XMS_ITS | Encounter Summary ---
Author Organization [facility] Address [address], [address] [place] [address] Care Team Providers Care Pharmacy Picking Tech Name Role Phone Abhay Moreno MD Primary Care Provider [phone] Encounter Details Date Type Department Care Team (Latest Contact Info) Description 01/16/2025 9:54 AM EDT - 01/16/2025 11:59 PM EDT Hospital Encounter [facility] [address] [place] [id number] Discharge Disposition: Home or Self Care Social [...] Care Team (Late st Contact Info) Description 02/01/2025 10:00 AM EDT Appointment [facility] [address] [place] [address] 02/05/2025 10:00 AM EDT Appointment [facility] [address] [place] [address] 02/06/2025 10:00 AM EDT Appointment [facility] [address] [place] [address] 02/08/2025 10:00 AM EDT Appointment [facility] [address] [place] [address] 02/12/2025 10:00 AM EDT Appointment [facility] [address] [place] [address] 02/13/2025 10:00 AM EDT Appointment [facility] [address] [place] [address] 02/15/2025 10:00 AM EDT Appointment [facility] [address] [place] [address] 02/19/2025 10:00 AM EDT Appointment [facility] [address] [place] [address] 02/20/2025 10:00 AM EDT Appointment [facility] [address] [place] [address] 02/22/2025 10:00 AM EDT Appointment [facility] [address] [place] [address] 02/26/2025 10:00 AM EDT Appointment [facility] [address] [place] [address] 02/27/2025 10:00 AM EDT Appointment [facility] [address] [place] [address] 03/01/2025 10:00 AM EDT Appointment [facility] [address] [place] [address] 03/05/2025 10:00 AM EDT Appointment [facility] [address] [place] [address] 03/06/2025 10:00 AM EDT Appointment [facility] [address] [place] [address] 03/08/2025 10:00 AM EDT Appointment [facility] [address] [place] [address] 03/12/2025 10:00 AM EDT Appointment [facility] [address] [place] [address] 03/13/2025 10:00 AM EDT Appointment [facility] [address] [place] [address] 03/15/2025 10:00 AM EDT Appointment [facility] [address] [place] [address] 03/19/2025 10:00 AM EDT Appointment [facility] [address] [place] [address] 03/20/2025 10:00 AM EDT Appointment [facility] [address] [place] [address] 03/22/2025 10:00 AM EDT Appointment [facility] [address] [place] [address] 03/26/2025 10:00 AM EDT Appointment [facility] [address] [place] [address] 03/27/2025 10:00 AM EDT Appointment [facility] [address] [place] [address] 03/29/2025 10:00 AM EDT Appointment [facility] [address] [place] [address] 04/02/2025 10:00 AM EDT Appointment [facility] [address] [place] [address] 04/03/2025 10:00 AM EDT Appointment [facility] [address] [place] [address] 04/05/2025 10:00 AM EDT Appointment [facility] [address] [place] [address] 04/09/2025 10:00 AM EDT Appointment [facility] [address] [place] [address] 04/10/2025 10:00 AM EDT Appointment [facility] [address] [place] [place] [address] 04/12/2025 10:00 AM EDT Appointment [facility] [address] [place] [address] 04/16/2025 10:00 AM EST Appointment [facility] [address] [place] [address] Scheduled Orders Name Type Priority Associated Diagnoses Orde r Schedule CARDIAC PHASE II Card Rehab One Time for 1 Occurrences starting 01/18/2025 until 01/18/2025 documented as of this encounter Visit Diagnoses Not on filedocumented in this encounter Care Teams Pharmacy Picking Tech Relationship Specialty Start Date End Date Abhay Moreno MD [address] [place] [address] PCP - General 10/13/12 documented as of this encounter
--- OUTSIDE RECORDS SUMMARY | 2025-01-18 10:00 | XMS_ITS | Encounter Summary ---
Author Organization [facility] Address [address], [address] [place] [address] Care Team Providers Care Liquor Establishment Manager Name Role Phone Abhay Moreno MD Primary Care Provider [phone] Encounter Details Date Type Department Care Team (Latest Contact Info) Description 01/18/2025 10:00 AM EDT - 01/18/2025 11:59 PM EDT Hospital Encounter [facility] [address] [place] [id number] Discharge Disposition: Home or Self Care Social [...] Info) Description 02/01/2025 10:00 AM EDT Appointment [facility] [address] [facility] [place] [address] 02/05/2025 10:00 AM EDT Appointment [facility] [address] [facility] [place] [address] 02/06/2025 10:00 AM EDT Appointment [facility] [address] [facility] [place] [address] 02/08/2025 10:00 AM EDT Appointment [facility] [address] [facility] [place] [address] 02/12/2025 10:00 AM EDT Appointment [facility] [address] [facility] [place] [address] 02/13/2025 10:00 AM EDT Appointment [facility] [address] [facility] [place] [address] 02/15/2025 10:00 AM EDT Appointment [facility] [address] [facility] [place] [address] 02/19/2025 10:00 AM EDT Appointment [facility] [address] [facility] [place] [address] 02/20/2025 10:00 AM EDT Appointment [facility] [address] [place] [address] 02/22/2025 10:00 AM EDT Appointment [facility] [address] [place] [address] 02/26/2025 10:00 AM EDT Appointment [facility] [address] [place] [address] 02/27/2025 10:00 AM EDT Appointment [facility] [address] [place] [address] 03/01/2025 10:00 AM EDT Appointment [facility] [address] [place] [address] 03/05/2025 10:00 AM EDT Appointment [facility] [address] [place] [address] 03/06/2025 10:00 AM EDT Appointment [facility] [address] [place] [address] 03/08/2025 10:00 AM EDT Appointment [facility] [address] [place] [address] 03/12/2025 10:00 AM EDT Appointment [facility] [address] [place] [address] 03/13/2025 10:00 AM EDT Appointment [facility] [address] [place] [address] 03/15/2025 10:00 AM EDT Appointment [facility] [address] [place] [address] 03/19/2025 10:00 AM EDT Appointment [facility] [address] [place] [address] 03/20/2025 10:00 AM EDT Appointment [facility] [address] [place] [address] 03/22/2025 10:00 AM EDT Appointment [facility] [address] [place] [address] 03/26/2025 10:00 AM EDT Appointment [facility] [address] [place] [address] 03/27/2025 10:00 AM EDT Appointment [facility] [address] [place] [address] 03/29/2025 10:00 AM EDT Appointment [facility] [address] [place] [address] 04/02/2025 10:00 AM EDT Appointment [facility] [address] [place] [place] [address] 04/03/2025 10:00 AM EDT Appointment [facility] [address] [place] [address] 04/05/2025 10:00 AM EDT Appointment [facility] [address] [place] [address] 04/09/2025 10:00 AM EDT Appointment [facility] [address] [place] [address] 04/10/2025 10:00 AM EDT Appointment [facility] [address] [place] [address] 04/12/2025 10:00 AM EDT Appointment [facility] [address] [place] [address] 04/16/2025 10:00 AM EST Appointment [facility] [address] [place] [address] Scheduled Orders Name Type Priority Associated Diagnoses Orde r Schedule CARDIAC PHASE II Card Rehab One Time for 1 Occurrences starting 01/23/2025 until 01/23/2025 documented as of this encounter Visit Diagnoses Not on filedocumented in this encounter Care Teams Liquor Establishment Manager Relationship Specialty Start Date End Date Abhay Moreno MD [address] [place] [address] PCP - General 10/13/12 documented as of this encounter
--- OUTSIDE RECORDS SUMMARY | 2025-01-22 09:45 | XMS_ITS | Encounter Summary ---
Author Organization [facility] Address [address] [place] [address] Care Team Providers Care Education Rn Name Role Phone Abhay Moreno MD Primary Care Provider [phone] Linda Pastrana MD Unavailable [phone] Reason for Referral * Imaging (Routine) - Pending Review Specialty Diagnoses / Procedures Referred By Contac t Referred To Contact Cardiology Diagnoses Chronic systolic congestive heart failure (CMS/HCC) Procedures Transthoracic echo (TTE) complete Chintan Ragland MD [address] [place] [address] Phone: tel: fax: Referral ID Status Reason Start Date Expiration Date Visits Requested Visits Authorized [id number] Pending Review Perform Procedure 01/22/2025 01/22/2026 1 1 Encounter Details Date Type Department Care Team (Late st Contact Info) Description 01/22/2025 9:45 AM EDT Office Visit [facility] [address] [place] [address] Chintan Ragland MD [address] [place] [address] Chronic systolic congestive heart failure [...] Sign Reading Time Taken Comments Blood Pressure 129/78 01/22/2025 9:54 AM EDT Pulse 62 01/22/2025 9:54 AM EDT Temperature - - Respiratory Rate - - Oxygen Saturation 100% 01/22/2025 9:54 AM EDT Inhaled Oxygen Concentration - - Weight 59 kg (130 lb) 01/22/2025 9:54 AM EDT Height 167.6 cm (5' 6 ) 01/22/2025 9:54 AM EDT Body Mass Index 20.98 01/22/2025 9:54 AM EDT documented in this encounter Progress Notes * Chintan Ragland MD - 01/22/2025 9:45 AM EDT Images from the original note were not included. [place] [facility] Subjective Tammy Roberts is a 44 y.o. year old female patient being seen for a 3 month follow up. Patient states one day she feels good and the next day she is exhausted and sleeps all day. Patient states she gets tired of feeling this way. Patient complains of chest pain, being unbalanced, with getting up, brain fog, ADDISON, palpitations, extreme fatigue, water extension in mid section and face, extreme nerve pain in her arm where cath was done, neuropathy in fingers and toes, sternal pain, tendonitis, headaches, when she raises her arms she gets presyncopal. Patient states she seen Neuro in [place] who stated MRI is good Neuro muscular specialist. Patient Active Problem List Diagnosis Uterine leiomyoma [...] evaluated yesterday in the emergency room at [facility] due to the above symptoms. Evaluation was negative. She also complained of pain in the right upper arm after the cardiac catheterization procedure. Shehas tenderness in the upper arm and in the forearm. Visit of 01/22/2025: She is seen in follow-up. She reports that she has been about the same. She continues to have symptoms of shortness of breathwith exertion NYHA class II symptoms. She continues to have symptoms of chest pain that are improved when she leans forward. Recently her leg swelling got worse and spironolactone was increased to 50 mg once daily. She continues to be on losartan and metoprolol succinate. She has an appointment with CT surgery on 01/25/2025 to discuss surgery for the pericardial cyst. Review of Systems HENT: Positive for tinnitus. Cardiovascular: Positive for chest pain, dyspnea on exertion, irregular heartbeat, palpitations andsyncope. Respiratory: Positive for shortness of breath. Neurological: Positive for dizziness, headaches, light-headedness and loss of balance. Psychiatric/Behavioral: Positive for altered mental status ( confusion ). Objective Visit Vitals BP 129/78 (BP Location: Right arm, Patient Position: Sitting) Pulse 62 Ht 1.676 m (5' 6 ) Wt 59 kg (130 lb) SpO2 100% BMI 20.98 kg/m?? OB Status Ablation Smoking Status Every Day BSA 1.66 m?? Physical Exam Constitutional: Appearance: She is [...] No swelling. Cervical back: Neck supple. Comments: Uses a walker to assist with ambulation Skin: General: Skin is warm and dry. [...] Other (See Comments) Labored breathing, chest tightening. Dedtk-Xmcmb-Qsseixc-Pramoxine Unknown Bacitracin Rash Cephalexin Nausea And Vomiting Other reaction(s): Unknown Medications Current Outpatient Medications: ALPRAZolam (Xanax) 0.5 mg tablet, 0.5 mg if needed in the morning and at bedtime., Disp: , Rfl: aspirin 81 mg chewable tablet, Chew 1 tablet (81 mg) in the morning., Disp: 90 tablet, Rfl: 3 meclizine 25 mg tablet,chewable, every 12 (twelve) hours., Disp: , Rfl: cholecalciferol, vitamin D3, 50 mcg (2,000 unit) capsule, Take 1 capsule by mouth in the morning. (Patient not taking: Reported on 01/22/2025), Disp: , Rfl: dapagliflozin propanediol (Farxiga) 10 mg, Take 1 tablet (10 mg) by mouth in the morning., Disp: 90tablet, Rfl: 3 diazePAM (Valium) 5 mg tablet, Take 5 mg by mouth 1 (one) time. (Patient not taking: Reported on 01/22/2025), Disp: , Rfl: metoprolol succinate XL (Toprol-XL) 50 mg 24 hr tablet, Take 1 tablet (50 mg) by mouth in the morning. Do not crush or chew., Disp: 90 tablet, Rfl: 3 predniSONE (Deltasone) 20 mg tablet, 1 (one) time each day at the same time. (Patient not taking: Reported on 01/22/2025), Disp: , Rfl: sacubitril-valsartan (Entresto) 24-26 mg tablet, Take 1 tablet by mouth two times daily., Disp: 180tablet, Rfl: 3 spironolactone (Aldactone) 25 mg tablet, Take 0.5 tablets (12.5 mg) by mouth in the morning., Disp:45 tablet, Rfl: 3 tamsulosin (Flomax) 0.4 mg [...] Rate 10/20/2024 90 Atrial Rate 10/20/2024 90 MS Interval 10/20/2024 128 QRS DURATION 10/20/2024 76 QT Interval 10/20/2024 364 QTC CALCULATION(BAZETT) 10/20/2024 445 P Hewitt 10/20/2024 76 R-Hewitt 10/20/2024 40 T Wave Hewitt 10/20/2024 44 ZNSZRU11% 10/20/2024 71.4 (A) QC Pass/Fail 10/20/2024 Passed [...] Chronic systolic congestive heart failure (CMS/HCC) - sacubitril-valsartan (Entresto) 24-26 mg tablet; Take 1 tablet by mouth two times daily. - dapagliflozin propanediol (Farxiga) 10 mg; Take 1 tablet (10 mg) by mouth in the morning. - metoprolol succinate XL (Toprol-XL) 50 mg 24 hr tablet; Take 1 tablet (50 mg) by mouth in the morning. Do not crush or chew. - spironolactone (Aldactone) 25 mg tablet; Take 0.5 tablets (12.5 mg) by mouth in the morning. - Basic metabolic panel; Future - Transthoracic echo (TTE) complete; Future Pericardial cyst Nonischemic cardiomyopathy (CMS/HCC) - sacubitril-valsartan (Entresto) 24-26 mg tablet; Take 1 tablet by mouth two times daily. - dapagliflozin propanediol (Farxiga) 10 mg; Take 1 tablet (10 mg) by mouth in the morning. - metoprolol succinate XL (Toprol-XL) 50 mg 24 hr tablet; Take 1 tablet (50 mg) by mouth in the morning. Do not crush or chew. - spironolactone (Aldactone) 25 mg tablet; Take 0.5 tablets (12.5 mg) by mouth in the morning. 1. Chronic systolic heart failure: Currently well compensated. I had a long discussion with her regarding the treatment of her systolic heart failure. Currently she is on metoprolol succinate and losartan. I am going to change losartan to Entresto. I will add Farxiga 10 mg daily. I will continue metoprolol succinate 50 mg once daily. I am going to reduce spironolactone to 12.5 mg once daily. I will check a BMP in 2 weeks. I will check an echocardiogram in 1 month. 2. Pericardial cyst: This is very symptomatic. I have reviewed the images of the echocardiogram Vania think that the cyst compresses the right-sided chambers especially the right atrium. I think thiscyst should be removed. I had discussed with Dr. Irving from cardiothoracic surgery. We talked about percutaneous aspiration versus surgical removal. With percutaneous aspiration there is a high chance of recurrence. We are favoring surgical removal. She will see cardiothoracic surgery soon in follow-up to plan the surgery. I have answered all her questions. I will plan on seeing her in follow-up in 3 months. Follow up in about 3 months (around 04/24/2025). 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
--- OUTSIDE RECORDS SUMMARY | 2025-01-23 10:00 | XMS_ITS | Encounter Summary ---
Author Organization [facility] Address [address], [address] [place] [address] Care Team Providers Care Blind Eyeletter Name Role Phone Abhay Moreno MD Primary Care Provider [phone] Encounter Details Date Type Department Care Team (Latest Contact Info) Description 01/23/2025 10:00 AM EDT - 01/23/2025 11:59 PM EDT Hospital Encounter [facility] [address] [place] [phone] Discharge Disposition: Home or Self Care Social [...] Info) Description 02/01/2025 10:00 AM EDT Appointment [facility] [address] [facility] [place] [address] 02/05/2025 10:00 AM EDT Appointment [facility] [address] [facility] [place] [address] 02/06/2025 10:00 AM EDT Appointment [facility] [address] [facility] [place] [address] 02/08/2025 10:00 AM EDT Appointment [facility] [address] [facility] [place] [address] 02/12/2025 10:00 AM EDT Appointment [facility] [address] [facility] [place] [address] 02/13/2025 10:00 AM EDT Appointment [facility] [address] [facility] [place] [address] 02/15/2025 10:00 AM EDT Appointment [facility] [address] [facility] [place] [address] 02/19/2025 10:00 AM EDT Appointment [facility] [address] [facility] [place] [address] 02/20/2025 10:00 AM EDT Appointment [facility] [address] [facility] [place] [address] 02/22/2025 10:00 AM EDT Appointment [facility] [address] [facility] [place] [address] 02/26/2025 10:00 AM EDT Appointment [facility] [address] [facility] [place] [address] 02/27/2025 10:00 AM EDT Appointment [facility] [address] [facility] [place] [address] 03/01/2025 10:00 AM EDT Appointment [facility] [address] [place] [address] 03/05/2025 10:00 AM EDT Appointment [facility] [address] [place] [address] 03/06/2025 10:00 AM EDT Appointment [facility] [address] [place] [address] 03/08/2025 10:00 AM EDT Appointment [facility] [address] [place] [address] 03/12/2025 10:00 AM EDT Appointment [facility] [address] [place] [address] 03/13/2025 10:00 AM EDT Appointment [facility] [address] [place] [address] 03/15/2025 10:00 AM EDT Appointment [facility] [address] [place] [address] 03/19/2025 10:00 AM EDT Appointment [facility] [address] [place] [address] 03/20/2025 10:00 AM EDT Appointment [facility] [address] [place] [address] 03/22/2025 10:00 AM EDT Appointment [facility] [address] [place] [address] 03/26/2025 10:00 AM EDT Appointment [facility] [address] [place] [address] 03/27/2025 10:00 AM EDT Appointment [facility] [address] [place] [address] 03/29/2025 10:00 AM EDT Appointment [facility] [address] [place] [address] 04/02/2025 10:00 AM EDT Appointment [facility] [address] [place] [address] 04/03/2025 10:00 AM EDT Appointment [facility] [address] [place] [address] 04/05/2025 10:00 AM EDT Appointment [facility] [address] [place] [address] 04/09/2025 10:00 AM EDT Appointment [facility] [address] [place] [address] 04/10/2025 10:00 AM EDT Appointment [facility] [address] [place] [address] 04/12/2025 10:00 AM EDT Appointment [facility] [address] [place] [address] 04/16/2025 10:00 AM EST Appointment [facility] [address] [place] [address] Scheduled Orders Name Type Priority Associated Diagnoses Orde r Schedule CARDIAC PHASE II Card Rehab One Time for 1 Occurrences starting 01/25/2025 until 01/25/2025 documented as of this encounter Visit Diagnoses Not on filedocumented in this encounter Care Teams Blind Eyeletter Relationship Specialty Start Date End Date Abhay Moreno MD [address] [place] [address] PCP - General 10/13/12 documented as of this encounter
--- OUTSIDE RECORDS SUMMARY | 2025-01-25 09:47 | XMS_ITS | Encounter Summary ---
Author Organization [facility] Address [address] [facility] [address], [address] [place] [address] Care Team Providers Care Clay Transporter Name Role Phone Abhay Moreno MD Primary Care Provider [phone] Encounter Details Date Type Department Care Team (Latest Contact Info) Description 01/25/2025 9:47 AM EDT - 01/25/2025 11:59 PM EDT Hospital Encounter [facility] [address] [place] [phone] Discharge Disposition: Home or Self Care Social [...] as of this encounter Progress Notes * Narayan Emmanuel RCP - 01/25/2025 7:20 AM EDT 01/25/25 0711 Treatment Diagnosis Treatment Diagnosis 1 Cardiomyopathy Referral Date 12/20/24 NYHA Heart Failure Classification Class II Individual Treatment Plan ITP Visit Type Initial assessment 1st Date of Exercise 12/28/24 ITP Next Review Date 01/25/25 Visit #/Total Visits EF% 25 % Risk Stratification High Supplemental Oxygen Oxygen Use No Exercise Assessment Stages of Change Action Assisted Devices Walker (MODERATE FALL RISK) Data Measured Before Test Heart Rate 68 Resting Blood Pressure 126/60 O2 Device Room air RPD 0 Data Measured at Peak Peak Heart Rate 105 Peak Blood Pressure 112/62 Peak RPE 13 Data Measured at 5 Minutes After Test Heart Rate 74 Blood Pressure 120/68 RPD 0 O2 Device Room air Exercise Intervention/Prescription Mode Treadmill;Bike;Stepper;Ergometer;Rower;Resistance training Frequency per week 3 D/WK Duration Per Session 31-60 Intensity METS 3.0-4.0 avg mets Target RPE 11-15 Progression 0.5-1.0+ METS / 30 DAYS Symptoms with Exercise Shortness of breath Target Heart Rate 96-108 Resistance Training Yes Exercise Activity at Home Type WALKING / CHAIR AEROBICS Frequency @ LEAST 2 D/WK Duration 20-40 MIN. Resistance Training Yes (RESISTANCE BANDS) Exercise Education Education RPE scale;Exercise safety;Equipment orientation;Dyspnea management Exercise Goals Patient Target Goals Aerobic activity 30 + minutes/day 5 days/week;Decrease dyspnea (exercise);Improve endurance;Individual exercise RX Patient Treatment Goal PT WILL BE ABLE TO GRADUALLY LEARN AND IMPLEMENT THE ABOVE FITTRx STARTING AT 11-13 RPE INCREASING DURATION FIRST THEN TITRATING INTENSITY UNTIL Rx GOAL MET IN THE NEXT 30 DAYS. Goal Status Met Progress Towards Goal Pt comprehends FITT and has been able to increase avg workloads and duration tolerance over the last 30 days Patient Treatment Goal (New) Patient will be able to understand the importance of home therapy while appropriatley increase met levels while in rehab. 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 Goal Status In progress Progress Towards Goal Class forthcoming, 1 on 1 talking patient states she is feeling slightly better mentally now that she has been forced to become active Other Core Component - Tobacco Cessation History of Tobacco/E-Cigarette/Chewing Tobacco/Other 1 PACK CIGS / EVERY 3 DAYS Current/Recent Use <6 mo. - Managed as Core Component Yes Tobacco Cessation Assessment Stages of Change Pre-contemplation Type Cigarette Tobacco Use Status Current (< or equal to 30 days) Date Started 06/14/04 # Cigarette Smoked/Day 6-7 Smokeless Tobacco Use No Tobacco Cessation Intervention Smoking Cessation Referral No (PT DECLINES) Tobacco Cessation Education Resource Information Provided (FORTHCOMING) Tobacco Triggers TBD Tobacco Cessation Goals Patient Target Goals Reduced tobacco use without a target quit date Patient Treatment Goal PT WILL ABLE TO REDUCE CIGARETTE CONSUMPTION GRADUALLY AND CONSIDER INTERVENTION AND NICOTINE REPLACEMENT IN THE NEXT 30 DAYS. Goal Status In progress Progress Towards Goal Still no consideration of have a date planned for cessation. Nutrition Assessment Stages of Change Action Nutrition Assessment Tool Other (comment) (REAPS NUTRITION SURVEY SCORE: 25) Barriers to Heart Healthy Diet CHRON'S DZ / DUMPING SYNDROME Alcohol No Height 1.676 m (5' 6 ) Weight 60.1 kg (132 lb 6.4 oz) BMI 21.41 Waist Circumference (In) 31.25 Other Core Component - Weight Management BMI <18.5 or > 24.9, Managed as Core Component No Other Core Component - Diabetes Diabetes No Other Core Component - Lipid Management Lipids Managed as Core Component No Not Managed as a Core Component Date Lipids Drawn (TBD) Nutrition Intervention Dietitian Consult No Staff/Patient Discussion (FORTHCOMING) Supplemental Nutrition N/A Nutrition Education Resource Information Provided (FORTHCOMING W/ CLASSES) Education Low saturated fat diet;Low sodium diet;Overall healthy eating pattern that emphasizes vegetables, fruits, wholegrains, healthy proteins and non- tropical oils Nutrition Goals Patient Target Goals LDL-C less than 70 and non-HDL-C <100 for those with ASCVD;Triglycerides less than 150 Patient Treatment Goal PT WILL BE ABLE TO LEARN AND ATTEMPT TO IMPROVE NUTRITIONAL INTAKE VIA NUTRITION CLASSES AND 1:1 EDUCATION IN THE NEXT 30 DAYS Goal Status In progress Progress Towards Goal 2/3 classes completed at this time focusing on Macronutrients, sodium intake,snacking healthier options. Education Learning Barrier Ready to learn (CARDIAC KNOWLEDGE TEST SCORE: 87%) Other Core Component - Hypertension Hypertension No Is BP WDL Yes Hypertension Managed as Core Component No Medications Resource Information Provided (FORTHCOMING) Med(s) Change Yes BP Meds METOPROLOL SUCCINATE, [place] CHA/ARB/ARNI Prescribed Yes CHA/ARB/ARNI Adherent Yes BB Prescribed Yes BB Adherent Yes Antiplatelet/Anticoagulant Prescribed No Statins/Anti-hyperlipidemic Prescribed No Cosigned by Jordan Mcghee MD at 01/25/2025 10:35 AM EDT documented in this encounter Plan of Treatment Upcoming Encounters Date Type Department Care Team (Late st Contact Info) Description 02/01/2025 10:[address] [facility] [address] [place] [address] 02/05/2025 10:[address] [facility] [address] [place] [address] 02/06/2025 10:00 AM EDT Appointment [facility] [address] [facility] [place] [address] 02/08/2025 10:00 AM EDT Appointment [facility] [address] [facility] [place] [address] 02/12/2025 10:00 AM EDT Appointment [facility] [address] [facility] [place] [address] 02/13/2025 10:00 AM EDT Appointment [facility] [address] [facility] [place] [address] 02/15/2025 10:00 AM EDT Appointment [facility] [address] [place] [address] 02/19/2025 10:00 AM EDT Appointment [facility] [address] [place] [address] 02/20/2025 10:00 AM EDT Appointment [facility] [address] [place] [address] 02/22/2025 10:00 AM EDT Appointment [facility] [address] [place] [address] 02/26/2025 10:00 AM EDT Appointment [facility] [address] [place] [address] 02/27/2025 10:00 AM EDT Appointment [facility] [address] [place] [address] 03/01/2025 10:00 AM EDT Appointment [facility] [address] [place] [address] 03/05/2025 10:00 AM EDT Appointment [facility] [address] [place] [address] 03/06/2025 10:00 AM EDT Appointment [facility] [address] [place] [address] 03/08/2025 10:00 AM EDT Appointment [facility] [address] [place] [address] 03/12/2025 10:00 AM EDT Appointment [facility] [address] [facility] [place] [address] 03/13/2025 10:00 AM EDT Appointment [facility] [address] [place] [address] 03/15/2025 10:00 AM EDT Appointment [facility] [address] [facility] [place] [address] 03/19/2025 10:00 AM EDT Appointment [facility] [address] [place] [address] 03/20/2025 10:00 AM EDT Appointment [facility] [address] [place] [address] 03/22/2025 10:00 AM EDT Appointment [facility] [address] [place] [address] 03/26/2025 10:00 AM EDT Appointment [facility] [address] [place] [address] 03/27/2025 10:00 AM EDT Appointment [facility] [address] [place] [address] 03/29/2025 10:00 AM EDT Appointment [facility] [address] [place] [address] 04/02/2025 10:00 AM EDT Appointment [facility] [address] [place] [address] 04/03/2025 10:00 AM EDT Appointment [facility] [address] [place] [address] 04/05/2025 10:00 AM EDT Appointment [facility] [address] [place] [address] 04/09/2025 10:00 AM EDT Appointment [facility] [address] [place] [address] 04/10/2025 10:00 AM EDT Appointment [facility] [address] [place] [address] 04/12/2025 10:00 AM EDT Appointment [facility] [address] [place] [address] 04/16/2025 10:[address] [facility] [address] [place] [address] Scheduled Orders Name Type Priority Associated Diagnoses Orde r Schedule CARDIAC PHASE II Card Rehab One Time for 1 Occurrences starting 01/29/2025 until 01/29/2025 documented as of this encounter Visit Diagnoses Not on filedocumented in this encounter Care Teams Clay Transporter Relationship Specialty Start Date End Date Abhay Moreno MD [address] [place] [address] PCP - General 10/13/12 documented as of this encounter
--- OUTSIDE RECORDS SUMMARY | 2025-01-25 13:30 | XMS_ITS | Encounter Summary ---
Author Organization [facility] Address [address] [place] [address] Care Team Providers Care Mulcher Operator Name Role Phone Abhay Moreno MD Primary Care Provider [phone] Linda Pastrana MD Unavailable [phone] Reason for Visit * Reason Comments Follow-up Cyst, patient states that she is having back and sternum pain, stereum pain has got worse. Encounter Details Date Type Department Care Team (Late Contact Info) Description 01/25/2025 1:30 PM EDT Follow-Up [facility] V[facility] [address] [place] [address] Robi Rouse, SONG WRITER [address] [facility] [place] [address] Pericardial cyst (Primary Dx); Acute systolic congestive heart failure (CMS/HCC) Social History Tobacco Use Types Packs/Day [...] Answer Date Recorded Patient Health Questionnaire-2 Score 4 01/25/2025 [place] Safety & Environment Answer Date Rec [...] Sign Reading Time Taken Comments Blood Pressure 121/81 01/25/2025 1:31 PM EDT Pulse 76 01/25/2025 1:31 PM EDT Temperature 36.7 C (98 F) 01/25/2025 1:31 PM EDT Respiratory Rate - - Oxygen Saturation 100% 01/25/2025 1:31 PM EDT Inhaled Oxygen Concentration - - Weight 58.5 kg (129 lb) 01/25/2025 1:31 PM EDT Height 167.6 cm (5' 6 ) 01/25/2025 1:31 PM EDT Body Mass Index 20.82 01/25/2025 1:31 PM EDT documented in this encounter Functional Status documented as of this encounter Progress Notes * Robi Rouse CNP - 01/25/2025 1:30 PM EDT Images from the original note were not included. Cardiothoracic Surgery Outpatient Follow-Up Reason For Visit Chief Complaint Patient presents with Follow-up Cyst, patient states that she is having back and sternum pain, stereum pain has got worse. History Of Present Illness Tammy Roberts is a 44 y.o. 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 There was a mass that was seen and she underwent CT of the Chest that showed and elongated hypodense area which etendsfrom the anterior mediastinum down to the right pericardial region measuring 9.8 x 4.6 x 3.7 cm in size. She was referred to Cardiology and underwent echocardiogram showing Severely reduced LV systolic function in a global fashion, EF 25%. Grade 1 diastolic dysfunction, Trivial aortic regurgitation, and pericardial cyst. She was referred to CT Surgery was surgical evaluation of pericardial cyst initially 10/19/2024. Underwent cardiac catherization on 10/20/2024 that showed normal coronary angiogram to rule out ischemic workup. She last followed up with our office on 11/16/2024 where surgery had been scheduled for Right VATS with Pericardial Cyst removal and any other indicated procedure. Surgery was cancelled due to patient experiencing stroke like symptoms and further workup was completed. She has since followed with a sonya rologist at [facility] where she was found to have a bulging disc for which she is undergoingfurther workup. She recently followed up with cardiology on 01/22/[address] Ragland, he startedher on Farxiga and Entresto for GDMT for her HFrEF. She started the medications today, due to insurance coverage. She has an echocardiogram planned to be completed in a month at [facility]. States she is participating in cardiac rehab. She is feeling a little stronger. Still endorses intermittent chest pain and left shoulder pain. Endorses intermittent SOB and dizziness. All symptoms are unchanged and not progressively getting worse. Allergies Desonide, Fentanyl, Ibuprofen, Latex, Penicillins, Prednisone, Adhesive, Morphine, Rbokg-rpxtb-gkxqgyh-pramoxine, Bacitracin, and Cephalexin Medications Current Outpatient Medications Medication Sig Dispense Refill ALPRAZolam (Xanax) 0.5 mg tablet 0.5 mg if needed in the morning and at bedtime. aspirin 81 mg chewable tablet Chew 1 tablet (81 mg) in the morning. 90 tablet 3 dapagliflozin propanediol (Farxiga) 10 mg Take 1 tablet (10 mg) by mouth in the morning. 30 tablet 11 meclizine 25 mg tablet,chewable every 12 (twelve) hours. metoprolol succinate XL (Toprol-XL) 50 mg 24 hr tablet Take 1 tablet (50 mg) by mouth in the morning. Do not crush or chew. 90 tablet 3 sacubitril-valsartan (Entresto) 24-26 mg tablet Take 1 tablet by mouth two times daily. 60 tablet 11 spironolactone (Aldactone) 25 mg tablet Take 0.5 tablets (12.5 mg) by mouth in the morning. 45 tablet 3 cholecalciferol, vitamin D3, 50 mcg (2,000 unit) capsule Take 1 capsule by mouth in the morning. (Patient not taking: Reported on 01/25/2025) diazePAM (Valium) 5 mg tablet Take 5 mg by mouth 1 (one) time. (Patient not taking: Reported on 01/25/2025) predniSONE (Deltasone) 20 mg tablet 1 (one) time each day at the same time. (Patient not taking: Reported on 01/25/2025) tamsulosin (Flomax) 0.4 mg 24 hr capsule 1 capsule 1 (one) time each day at the same time. (Patientnot taking: Reported on 01/25/2025) tiZANidine (Zanaflex) 4 mg tablet 4 mg if needed in the morning, at noon, and at bedtime. (Patient not taking: Reported on 01/25/2025) triamcinolone (Kenalog) 0.1 % cream 1 Application. (Patient not taking: Reported on 01/25/2025) valACYclovir (Valtrex) 1 gram tablet 1 (one) time each day at the same time. (Patient not taking: Reported on 01/25/2025) No current facility-administered medications for this visit. Review of Systems Review of Systems: All 14 Systems Reviewed and Negative unless otherwise indicated in the above HPI. Last Recorded Vitals Visit Vitals BP 121/81 (BP Location: Right arm, Patient Position: Sitting, BP Cuff Size: Adult) Pulse 76 Temp 36.7 ??C (98 ??F) (Temporal) Physical Exam Vitals reviewed. Constitutional: General: She is not in acute distress. Appearance: Normal appearance. She is normal weight. She is not ill-appearing. HENT: Head: Normocephalic and atraumatic. Mouth/Throat: Mouth: Mucous membranes are moist. Pharynx: Oropharynx is clear. Eyes: Extraocular Movements: Extraocular movements intact. Conjunctiva/sclera: Conjunctivae normal. Pupils: Pupils are equal, round, and reactive to light. Neck: Vascular: No carotid bruit. Cardiovascular: Rate and Rhythm: Normal rate and regular rhythm. Pulses: Normal pulses. Heart sounds: Normal heart sounds. No murmur heard. Pulmonary: Effort: Pulmonary effort is normal. No respiratory distress. Breath sounds: Normal breath sounds. Abdominal: General: Abdomen is flat. There is no distension. Palpations: Abdomen is soft. Musculoskeletal: General: Normal range of motion. Cervical back: Normal range of motion. Right lower leg: No edema. Left lower leg: No edema. Skin: General: Skin is warm and dry. Capillary Refill: Capillary refill takes less than 2 seconds. Coloration: Skin is not pale. Neurological: General: No focal deficit present. Mental Status: She is alert and oriented to person, place, and time. Mental status is at baseline. Psychiatric: Mood and Affect: Mood normal. Behavior: Behavior normal. Thought Content: Thought content normal. Judgment: Judgment normal. Relevant Results Echocardiogram 09/27/2024: Severely reduced LV systolic function in a global fashion, EF 25%. Grade 1 diastolic dysfunction. Trivial aortic regurgitation. Free space seen along the right atrium may represent pericardial cyst or localized pericardial effusion compatible with abnormality noted on chest CT done 08/29/2024. Cardiac Catherization 10/20/2024: Hemodynamic Data: RA: 1 RV: 20/0, 3 PA: 17/4 (10) PCWP: 1 CO: 4.44 CI: 2.68 O2 Sat: PA sat: 72%, AO sat: 97% AO: 127/72 (94) Coronary angiography: This is a right-dominant circulation. Left Main: This arises from the left coronary cusp. It bifurcates into left anterior descending andcircumflex vessels. This is angiographically normal. Left anterior descending: This is angiographically normal. Circumflex: This is a non-dominant vessel. This is angiographically normal. Right coronary artery: This arises from the right coronary cusp. It is a dominant vessel. This is angiographically normal. Impression/Findings: Normal coronary angiogram. Low filling and pulmonary pressures. Low normal cardiac output. Findings are consistent with non-ischemic cardiomyopathy. Assessment/Plan Diagnosis Plan 1. Pericardial cyst 2. Acute systolic congestive heart failure (CMS/HCC) Plan: -Since patient started GDMT today (Farxiga and Entresto) will have patient continue with medicationfor a month and then repeat echocardiogram to assess fucntion and if there is improvement in EF. -Plan to proceed with Right VATS with Pericardial Cyst removal once echocardiogram is completed in one month. -Will either call patient back with surgery date or bring to office. -Patient agreeable to POC and all questions and concerns answered appropriately. Cardiothoracic Surgery outpatient Office Number [phone]. Cardiothoracic Surgery outpatient . documented in this encounter Plan of Treatment Not on file documented as of this encounter Visit Diagnoses Diagnosis Pericardial cyst- Primary Other specified congenital anomaly of heart Acute systolic congestive heart failure (CMS/HCC) documented in this encounter Care Teams Mulcher Operator Relationship Specialty Start Date End Date Abhay Moreno MD [address] [place] [place] [address] PCP - General 07/14/23 Linda Pastrana MD [address] [place] [phone] Consulting Physician Hematology and Oncology 07/14/23 documented as of this encounter
--- OUTSIDE RECORDS SUMMARY | 2025-01-26 | XMS_ITS | Encounter Summary ---
Author Organization [facility] Address [address] [place] [address] Care Team Providers Care Calender Machine Operator Helper Name Role Phone Abhay Moreno MD Primary Care Provider [phone] Linda Pastrana MD Unavailable [phone] Reason for Referral * Imaging (Routine) - Pending Review Specialty Diagnoses / Procedures Referred By Chayoac kanu Referred To Contact Radiology Procedures MR transfer of outside films Seng Rosado MD [address] [place] [address] Phone: tel: fax: Referral ID Status Reason Start Date Expiration Date V isits Requested Visits Authorized [id number] Pending Review 01/26/2025 01/26/2026 1 1 Reason for Visit * Imaging (Routine) - Pending Review Specialty Diagnoses / Procedures Referred By Contnito bobby Referred To Contact Radiology Procedures MR transfer of outside films Seng Rosado MD [address] [place] [address] Phone: tel: fax: Referral ID Status Reason Start Date Expiration Date V isits Requested Visits Authorized [id number] Pending Review 01/26/2025 01/26/2026 1 1 Encounter Details Date Type Department Care Team (Latest Contact Info) Description 01/26/2025 - 01/26/2025 12:04 AM EDT Hospital Encounter [facility] Radiology External Films [address] [place] [id number] Discharge Disposition: Home or Self Care () [...] Recorded Patient Health Questionnaire-2 Score 4 01/25/2025 [place] Safety & Environment Answer Date Rec orded [...] encounter Medications at Time of Discharge ALPRAZolam (Xanax) 0.5 mg tablet 0.5 mg if needed in the morning and at bedtime. 09/01/2023 aspirin 81 mg chewable tabletIndications:Ac king salmon systolic congestive heart failure (CMS/HCC) Chew 1 tablet (81 mg) in the morning. 90 tablet 3 09/29/2024 cholecalciferol, vitamin D3, 50 mcg (2,000 unit) capsule Take 1 capsule by mouth in the morning. 08/10/2023 dapagliflozin propanediol (Farxiga) 10 mgIndications:Chroni c systolic congestive heart failure (CMS/HCC),Nonischemi c cardiomyopathy (CMS/HCC) Take 1 tablet (10 mg) by mouth in the morning. 30 tablet 01/22/2025 diazePAM (Valium) 5 mg tablet Take 5 mg by mouth 1 (one) time. meclizine 25 mg tablet,chewable every 12 (twelve) hours. metoprolol succinate XL (Toprol-XL) 50 mg 24 hr tabletIndications:Ch ronic systolic congestive heart failure (CMS/HCC),Nonischemi c cardiomyopathy (CMS/HCC) Take 1 tablet (50 mg) by mouth in the morning. Do not crush or chew. 90 tablet 01/22/2025 predniSONE (Deltasone) 20 mg tablet 1 (one) time each day at the same time. sacubitril-valsartan (Entresto) 24-26 mg tabletIndications:Ch ronic systolic congestive heart failure (CMS/HCC),Nonischemi c cardiomyopathy (CMS/HCC) Take 1 tablet by mouth two times daily. 60 tablet 01/22/2025 spironolactone (Aldactone) 25 mg tabletIndications:Ch ronic systolic congestive heart failure (CMS/HCC),Nonischemi c cardiomyopathy (CMS/HCC) Take 0.5 tablets (12.5 mg) by mouth in the morning. 45 tablet 01/22/2025 tamsulosin (Flomax) 0.4 mg 24 hr capsule [...] Comments MR TRANSFER OF OUTSIDE FILMS Routine 01/26/2025 12:00 AM EDT documented in this encounter Results * MR transfer of outside films (01/26/2025 12:00 AM EDT) Narrative IMAGING - 01/26/2025 11:18 AM EDT This order has been auto-finalized and does not contain a result. us Seng Rosado MD IMG MRI PROCEDURES Final Resul t IMAGING documented in this encounter Visit Diagnoses Not on filedocumented in this encounter Care Teams Calender Machine Operator Helper Relationship Specialty Start Date End Date Abhay Moreno MD [address] [facility] [place] [address] PCP - General 07/14/23 Linda Pastrana MD [address] [place] [phone] Consulting Physician Hematology and Oncology 07/14/23 documented as of this encounter
--- OUTSIDE RECORDS SUMMARY | 2025-01-26 00:05 | XMS_ITS | Encounter Summary ---
Author Organization [facility] Address [address] [place] [address] Care Team Providers Care Interactive Account Manager Name Role Phone Abhay Moreno MD Primary Care Provider [phone] Linda Pastrana MD Unavailable [phone] Reason for Referral * Imaging (Routine) - Pending Review Specialty Diagnoses / Procedures Referred By Mable bobby Referred To Contact Radiology Procedures CT transfer of outside films Seng Rosado MD [address] [place] [address] Phone: tel: fax: Referral ID Status Reason Start Date Expiration Date V isits Requested Visits Authorized [id number] Pending Review 01/26/2025 01/26/2026 1 1 Reason for Visit * Imaging (Routine) - Pending Review Specialty Diagnoses / Procedures Referred By Contnito bobby Referred To Contact Radiology Procedures CT transfer of outside films Seng Rosado MD [address] [place] [address] Phone: tel: fax: Referral ID Status Reason Start Date Expiration Date V isits Requested Visits Authorized [id number] Pending Review 01/26/2025 01/26/2026 1 1 Encounter Details Date Type Department Care Team (Latest Contact Info) Description 01/26/2025 12:05 AM EDT - 01/26/2025 12:09 AM EDT Hospital Encounter [facility] Radiology External Films [address] [place] [phone] Discharge Disposition: Home or Self Care () [...] Recorded Patient Health Questionnaire-2 Score 4 01/25/2025 [place] Safety & Environment Answer Date Rec orded [...] bedtime. 09/01/2023 aspirin 81 mg chewable tabletIndications:Ac mimi systolic congestive heart failure (CMS/HCC) Chew 1 [...] not crush or chew. 90 tablet 01/22/2025 6 predniSONE (Deltasone) 20 mg tablet 1 (one) time each day at the same time. sacubitril-valsartan (Entresto) 24-26 mg tabletIndications:Ch ronic systolic congestive heart failure (CMS/HCC),Nonischemi c cardiomyopathy (CMS/HCC) Take 1 tablet by mouth two times daily. 60 tablet 01/22/2025 6 spironolactone (Aldactone) 25 mg tabletIndications:Ch ronic systolic congestive heart failure (CMS/HCC),Nonischemi c cardiomyopathy (CMS/HCC) Take 0.5 tablets (12.5 mg) by mouth in the morning. 45 tablet 3 01/22/2025 6 tamsulosin (Flomax) 0.4 mg 24 hr capsule [...] Name Priority Date/Time Associated Diagnosis Comments CT TRANSFER OF OUTSIDE FILMS Routine 01/26/2025 12:05 AM EDT documented in this encounter Results * CT transfer of outside films (01/26/2025 12:05 AM EDT) Narrative IMAGING - 01/26/2025 11:29 AM EDT This order has been auto-finalized and does not contain a result. Seng Rosado MD IMG CT PROCEDURES Final Result IMAGING documented in this encounter Visit Diagnoses Not on filedocumented in this encounter Care Teams Interactive Account Manager Relationship Specialty Start Date End Date Abhay Moreno MD [address] [place] [address] PCP - General 07/14/23 Linda Pastrana MD [address] [place] [address] Consulting Physician Hematology and Oncology 07/14/23 documented as of this encounter
--- OUTSIDE RECORDS SUMMARY | 2025-01-26 00:10 | XMS_ITS | Encounter Summary ---
Author Organization [facility] Address [address] [address] Care Team Providers Care Metallurgy Laboratory Technician Name Role Phone Abhay Moreno MD Primary Care Provider [phone] Linda Pastrana MD Unavailable [phone] Encounter Details Date Type Department Care Team (Latest Contact Info) Description 01/26/2025 12:10 AM EDT - 01/26/2025 11:59 PM EDT Hospital Encounter [facility] Radiology External Films [address] [place] [phone] Discharge Disposition: Home or Self Care () [...] Recorded Patient Health Questionnaire-2 Score 4 01/25/2025 [place] Safety & Environment Answer Date Rec orded [...] in the morning. 90 tablet 3 09/29/2024 6 cholecalciferol, vitamin D3, 50 mcg (2,000 unit) capsule Take 1 capsule by mouth in the morning. 08/10/2023 dapagliflozin propanediol (Farxiga) 10 mgIndications:Chroni c systolic congestive heart failure (CMS/HCC),Nonischemi c cardiomyopathy (CMS/HCC) Take 1 tablet (10 mg) by mouth in the morning. 30 tablet 11 01/22/2025 6 diazePAM (Valium) 5 mg tablet Take 5 mg by mouth 1 (one) time. meclizine 25 mg tablet,chewable every 12 (twelve) hours. metoprolol succinate XL (Toprol-XL) 50 mg 24 hr tabletIndications:Ch ronic systolic congestive heart failure (CMS/HCC),Nonischemi c cardiomyopathy (CMS/HCC) Take 1 tablet (50 mg) by mouth in the morning. Do not crush or chew. 90 tablet 3 01/22/2025 6 predniSONE (Deltasone) 20 mg tablet 1 (one) time each day at the same time. sacubitril-valsartan (Entresto) 24-26 mg tabletIndications:Ch ronic systolic congestive heart failure (CMS/HCC),Nonischemi c cardiomyopathy (CMS/HCC) Take 1 tablet by mouth two times daily. 60 tablet 11 01/22/2025 6 spironolactone (Aldactone) 25 mg tabletIndications:Ch [...] Procedure Name Priority Date/Time Associated Diagnosis Comments XR TRANSFER OF OUTSIDE FILMS Routine 01/26/2025 12:10 AM EDT documented in this encounter Results * XR transfer of outside films (01/26/2025 12:10 AM EDT) Narrative IMAGING - 01/26/2025 11:29 AM EDT This order has been auto-finalized and does not contain a result. Seng Rosado MD IMG XR PROCEDURES Final Result IMAGING documented in this encounter Visit Diagnoses Not on filedocumented in this encounter Care Teams Metallurgy Laboratory Technician Relationship Specialty Start Date End Date Abhay Moreno MD [address] [place] [address] PCP - General 07/14/23 Linda Pastrana MD [address] [place] [address] Consulting Physician Hematology and Oncology 07/14/23 documented as of this encounter
--- OUTSIDE RECORDS SUMMARY | 2025-01-29 10:00 | XMS_ITS | Encounter Summary ---
Author Organization [facility] Address [address], [address] [place] [address] Care Team Providers Care Guest Services Ambassador Name Role Phone Abhay Moreno MD Primary Care Provider [phone] Encounter Details Date Type Department Care Team (Latest Contact Info) Description 01/29/2025 10:00 AM EDT - 01/29/2025 11:59 PM EDT Hospital Encounter [facility] [address] [place] [phone] Arrived Discharge Disposition: Home or Self Care [...] Info) Description 02/01/2025 10:00 AM EDT Appointment [facility] [address] [place] [place] [address] 02/05/2025 10:00 AM EDT Appointment [facility] [address] [place] [place] [address] 02/06/2025 10:00 AM EDT Appointment [facility] [address] [place] [place] [address] 02/08/2025 10:00 AM EDT Appointment [facility] [address] [place] [place] [address] 02/12/2025 10:00 AM EDT Appointment [facility] [address] [place] [place] [address] 02/13/2025 10:00 AM EDT Appointment [facility] [address] [place] [address] 02/15/2025 10:00 AM EDT Appointment [facility] [address] [place] [place] [address] 02/19/2025 10:00 AM EDT Appointment [facility] [address] [place] [address] 02/20/2025 10:00 AM EDT Appointment [facility] [address] [facility] [address] 02/22/2025 10:00 AM EDT Appointment [facility] [address] [place] [address] 02/26/2025 10:00 AM EDT Appointment [facility] [address] [place] [address] 02/27/2025 10:00 AM EDT Appointment [facility] [address] [place] [address] 03/01/2025 10:00 AM EDT Appointment [facility] [address] [place] [address] 03/05/2025 10:00 AM EDT Appointment [facility] [address] [place] [address] 03/06/2025 10:00 AM EDT Appointment [facility] [address] [place] [address] 03/08/2025 10:00 AM EDT Appointment [facility] [address] [place] [address] 03/12/2025 10:00 AM EDT Appointment [facility] [address] [place] [address] 03/13/2025 10:00 AM EDT Appointment [facility] [address] [place] [address] 03/15/2025 10:00 AM EDT Appointment [facility] [address] [place] [address] 03/19/2025 10:00 AM EDT Appointment [facility] [address] [place] [address] 03/20/2025 10:00 AM EDT Appointment [facility] [address] [place] [address] 03/22/2025 10:00 AM EDT Appointment [facility] [address] [place] [address] 03/26/2025 10:00 AM EDT Appointment [facility] [address] [place] [address] 03/27/2025 10:00 AM EDT Appointment [facility] [address] [place] [address] 03/29/2025 10:00 AM EDT Appointment [facility] [address] [place] [address] 04/02/2025 10:00 AM EDT Appointment [facility] [address] [place] [address] 04/03/2025 10:00 AM EDT Appointment [facility] [address] [place] [address] 04/05/2025 10:00 AM EDT Appointment [facility] [address] [place] [address] 04/09/2025 10:00 AM EDT Appointment [facility] [address] [place] [address] 04/10/2025 10:00 AM EDT Appointment [facility] [address] [place] [address] 04/12/2025 10:00 AM EDT Appointment [facility] [address] [place] [address] 04/16/2025 10:00 AM EST Appointment [facility] [address] [place] [address] documented as of this encounter Visit Diagnoses Not on filedocumented in this encounter Care Teams Guest Services Ambassador Relationship Specialty Start Date End Date Abhay Moreno MD [address] [place] [address] PCP - General 10/13/12 documented as of this encounter
--- OUTSIDE RECORDS SUMMARY | 2025-01-31 11:14 | XMS_ITS | Clinical Summary ---
Author Organization [facility] [employer] [facility] Address [address] [place] [phone] Care Team Providers Care Nuclear Weapons Custodian Name Role Phone Abhay Moreno MD Primary Care Provider [phone] Quynh Bishop CNM Unavailable [phone] Social History Tobacco Use Types Packs/Day [...] was sent from an outside facility to [facility] for support of clinical care of the patient within the [facility]. Procedure Note [facility] Outside Orders, External Images - 05/03/2023 Outside Imaging Study for Support of Clinical Care. This study was sentfrom an outside facility to [facility] for support of clinical care of thepatient within the [facility]. 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
--- OUTSIDE RECORDS SUMMARY | 2025-01-31 11:15 | XMS_ITS | Clinical Summary ---
Author Organization [facility] Address [address] [facility], [address] [place] [address] Care Team Providers Care Light Equipment Operator Name Role Phone Abhay Moreno MD Primary Care Provider [phone] Allergies Active Allergy Reactions Criticality Noted Date [...] Encounters Date Type Department Care Team Description 01/30/2025 9:37 AM EDT - 01/30/2025 11:59 PM EDT Hospital Encounter [facility] [address] [place] [address] Arrived Discharge Disposition: Home or Self Care 01/29/2025 10:00 AM EDT - 01/29/2025 11:59 PM EDT Hospital Encounter [facility] [address] [place] [address] Arrived Discharge Disposition: Home or Self Care 01/25/2025 9:47 AM EDT - 01/25/2025 11:59 PM EDT Hospital Encounter [facility] [address] [place] [address] Discharge Disposition: Home or Self Care 01/23/2025 10:00 AM EDT - 01/23/2025 11:59 PM EDT [facility] Encounter [facility] [address] [place] [address] Discharge Disposition: Home or Self Care 01/18/2025 10:00 AM EDT - 01/18/2025 11:59 PM EDT Hospital Encounter [facility] [address] [place] [address] Discharge Disposition: Home or Self Care 01/16/2025 9:54 AM EDT - 01/16/2025 11:59 PM EDT Hospital Encounter [facility] [address] [place] [address] Discharge Disposition: Home or Self Care 01/15/2025 9:40 AM EDT - 01/15/2025 11:59 PM EDT Hospital Encounter [facility] [address] [place] [address] Discharge Disposition: Home or Self Care 01/11/2025 10:00 AM EDT - 01/11/2025 11:59 PM EDT Hospital Encounter [facility] [address] [place] [address] Discharge Disposition: Home or Self Care 01/09/2025 10:00 AM EDT - 01/09/2025 11:59 PM EDT Hospital Encounter [facility] [address] [place] [address] Discharge Disposition: Home or Self Care 01/08/2025 10:00 AM EDT - 01/08/2025 11:59 PM EDT Hospital Encounter [facility] [address] [place] [address] Discharge Disposition: Home or Self Care 01/04/2025 10:00 AM EDT - 01/04/2025 11:59 PM EDT Hospital Encounter [facility] [address] [place] [address] Discharge Disposition: Home or Self Care 01/02/2025 10:00 AM EDT - 01/02/2025 11:59 PM EDT Hospital Encounter [facility] [address] [place] [address] Discharge Disposition: Home or Self Care 01/01/2025 10:00 AM EDT - 01/01/2025 11:59 PM EDT Hospital Encounter [facility] [address] [place] [address] Discharge Disposition: Home or Self Care 12/28/2024 9:55 AM EDT - 12/28/2024 11:59 PM EDT Hospital Encounter [facility] [address] [place] [address] 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, 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 Disposition: Home or Self Care 11/30/2024 7:54 AM EDT - 11/30/2024 11:59 PM EDT Hospital Encounter [facility] Physical Therapy [address] [place] [address] Keya Mitchell, PT Discharge Disposition: Home or Self Care 11/25/2024 12:23 PM EDT - 11/25/2024 4:44 PM EDT Emergency [facility] Emergency Department [address] [place] [address] Mina Pires MD Dyspnea, unspecified type (Primary Dx); Costochondritis Discharge Disposition: Home or Self Care 11/25/2024 Travel 11/15/2024 12:45 PM EDT - 11/17/2024 11:59 PM EDT Hospital Encounter [facility] Non-Invasive Cardiology [address] [place] [address] Syncope and collapse Discharge Disposition: Home or Self Care 11/15/2024 8:52 AM EDT - 11/15/2024 12:32 PM EDT Emergency [facility] Emergency Department [address] [place] [address] Bereket Pacheco MD TIA (transient ischemic attack) (Primary Dx); Syncope and collapse; Symptoms of dehydration; Radicular pain in left arm Discharge Disposition: Home or Self Care 11/15/2024 Travel from Last 3 Months Family History [...] Info) Description 02/01/2025 10:00 AM EDT Appointment [facility] [address] [place] [address] 02/05/2025 10:00 AM EDT Appointment [facility] [address] [place] [address] 02/06/2025 10:00 AM EDT Appointment [facility] [address] [place] [address] 02/08/2025 10:00 AM EDT Appointment [facility] [address] [place] [address] 02/12/2025 10:00 AM EDT Appointment [facility] [address] [facility] [place] [address] 02/13/2025 10:00 AM EDT Appointment [facility] [address] [facility] [place] [address] 02/15/2025 10:00 AM EDT Appointment [facility] [address] [place] [address] 02/19/2025 10:00 AM EDT Appointment [facility] [address] [facility] [place] [address] 02/20/2025 10:00 AM EDT Appointment [facility] [address] [place] [address] 02/22/2025 10:00 AM EDT Appointment [facility] [address] [place] [address] 02/26/2025 10:00 AM EDT Appointment [facility] [address] [place] [address] 02/27/2025 10:00 AM EDT Appointment [facility] [address] [place] [address] 03/01/2025 10:00 AM EDT Appointment [facility] [address] [place] [address] 03/05/2025 10:00 AM EDT Appointment [facility] [address] [place] [address] 03/06/2025 10:00 AM EDT Appointment [facility] [address] [place] [address] 03/08/2025 10:00 AM EDT Appointment [facility] [address] [place] [address] 03/12/2025 10:00 AM EDT Appointment [facility] [address] [place] [address] 03/13/2025 10:00 AM EDT Appointment [facility] [address] [place] [address] 03/15/2025 10:00 AM EDT Appointment [facility] [address] [place] [address] 03/19/2025 10:00 AM EDT Appointment [facility] [address] [facility] [place] [address] 03/20/2025 10:00 AM EDT Appointment [facility] [address] [facility] [place] [address] 03/22/2025 10:00 AM EDT Appointment [facility] [address] [facility] [place] [address] 03/26/2025 10:00 AM EDT Appointment [facility] [address] [facility] [place] [address] 03/27/2025 10:00 AM EDT Appointment [facility] [address] [place] [address] 03/29/2025 10:00 AM EDT Appointment [facility] [address] [place] [address] 04/02/2025 10:00 AM EDT Appointment [facility] [address] [place] [address] 04/03/2025 10:00 AM EDT Appointment [facility] [address] [place] [address] 04/05/2025 10:00 AM EDT Appointment [facility] [address] [place] [address] 04/09/2025 10:00 AM EDT Appointment [facility] [address] [place] [address] 04/10/2025 10:00 AM EDT Appointment [facility] [address] [facility] [place] [address] 04/12/2025 10:00 AM EDT Appointment [facility] [address] [place] [address] 04/16/2025 10:00 AM EST Appointment [facility] [address] [place] [address] Health Maintenance Due Date Last Done Comments [...] Flu vaccine (#1) 01/12/2025 Breast cancer screen 05/04/2025 05/04/2023, 04/27/2023, 03/26/2023, Additional history exists Cervical cancer screen 02/26/2026 Pap smear 02/26/2026 02/26/2023 HPV vaccine (No Doses Required) Completed Hepatitis A vaccine Aged Out No longe [...] EKG 12-LEAD STAT 11/15/2024 8:57 AM EDT [facility] DIGITAL DIAGNOSTIC UNILATERAL RIGHT Routine 04/27/2023 1:25 PM EST Abnormal screening mammogram PRINTING MACHINIST CYTOLOGY Routine 02/26/2023 12:00 AM EDT from Last 3 Months or Most Recently Relevant to Health Maintenance Results * EKG 12 Lead (11/25/2024 3:33 PM EDT) Only the most recent of3 resultswithin the time period is included. Ventricular Rate 57 BPM [facility] RADIOLOGY Atrial Rate 57 BPM [facility] RADIOLOGY P-R Interval 126 ms [facility] W RADIOLOGY QRS Duration 84 ms [facility] W RADIOLOGY Q-T Interval 448 ms [facility] W RADIOLOGY QTc Calculation (Bazett) 436 ms [facility] RADIOLOGY P [place] 76 degrees [facility] RADIOLOGY R [place] 46 degrees [facility] RADIOLOGY T [place] 59 degrees [facility] RADIOLOGY 11/25/2024 3:33 PM EDT Narrative [facility] RADIOLOGY - 11/26/2024 7:19 AM EDT Sinus bradycardia with sinus arrhythmia Otherwise normal ECG Procedure Note Garcia Burgos MD - 11/26/2024 Sinus bradycardia with sinus arrhythmia Otherwise normal ECG us Mina Pires MD ECG ORDERABLES Final Resu lt [facility] RADIOLOGY * XR CHEST PORTABLE (11/25/2024 12:55 PM EDT) Anatomical Region Laterality Modality Chest [...] No acute pulmonary findings. Mina Pires MD IMG DIAGNOSTIC IMAGING ORD ERABLES Final Result * (ABNORMAL) CBC with Auto Differential (11/25/2024 12:47 PM EDT) Only the most recent of2 resultswithin the time period is included. WBC 9.7 3.5 - 11.0 k/uL 11/25/2024 12:47 PM EDT [facility] RBC 4.45 4.00 - 5.20 m/uL 11/25/2024 12:47 PM EDT [facility] Hemoglobin 14.1 12.0 - 16.0 g/dL 11/25/2024 12:47 PM EDT [facility] Hematocrit 40.5 36.0 - 46.0 % 11/25/2024 12:47 PM EDT [facility] MCV 91.0 80.0 - 100.0 fL 11/25/2024 12:47 PM EDT [facility] MCH 31.7 26.0 - 34.0 pg 11/25/2024 12:47 PM EDT [facility] MCHC 34.8 31.0 - 37.0 g/dL 11/25/2024 12:47 PM EDT [facility] RDW 12.0(L) 12.1 - 15.2 % 11/25/2024 12:47 PM EDT [facility] Platelets 262 140 - 450 k/uL 11/25/2024 12:47 PM EDT [facility] MPV 9.0 6.0 - 12.0 fL 11/25/2024 12:47 PM EDT [facility] Neutrophils % 59 47 - 75 % 11/25/2024 12:47 PM EDT [facility] Lymphocytes % 33 15 - 40 % 11/25/2024 12:47 PM EDT [facility] Monocytes % 8 4 - 8 % 11/25/2024 12:47 PM EDT [facility] Eosinophils % 0 0 - 5 % 11/25/2024 12:47 PM EDT [facility] Basophils % 0 0 - 2 % 11/25/2024 12:47 PM EDT [facility] Immature Granulocytes % 0 0 - 5 % 11/25/2024 12:47 PM EDT [facility] Neutrophils Absolute 5.73 2.5 - 7.0 k/uL 11/25/2024 12:47 PM EDT [facility] Lymphocytes Absolute 3.15 1.00 - 4.80 k/uL 11/25/2024 12:47 PM EDT [facility] Monocytes Absolute 0.75 0.00 - 1.00 k/uL 11/25/2024 12:47 PM EDT [facility] Eosinophils Absolute 0.03 0.00 - 0.40 k/uL 11/25/2024 12:47 PM EDT [facility] Basophils Absolute 0.02 0.00 - 0.20 k/uL 11/25/2024 12:47 PM EDT [facility] Immature Granulocytes Absolute 0.02 0.00 - 0.30 k/uL 11/25/2024 12:47 PM EDT [facility] Blood BLOOD SPECIMEN / Unknown 11/25/2024 12:47 PM EDT 11/25/2024 12:52 PM EDT us Mina Pires MD HEMATOLOGY ORDERABLES Chacha tovar Result [facility] [address] [phone] * Troponin (11/25/2024 12:47 PM EDT) Only the most recent of3 resultswithin the time period is included. Troponin, High Sensitivity <6 0 - 14 ng/L 11/25/2024 12:47 PM EDT [facility] Comment:High Sensitivity Tro ponin values cannot be compared with other Troponin methodologies. BLOOD SPECIMEN / Unknown 11/25/2024 12:47 PM EDT 11/25/2024 12:52 PM EDT Mina Pires MD CHEMISTRY ORDERABLES Final Result Performing Organization Address [facility]/ZIP Co de Phone Number [facility] [address] [phone] * APTT (11/25/2024 12:47 PM EDT) APTT 30.2 23.9 - 33.8 sec 11/25/2024 12:47 PM EDT [facility] Comment: IV Heparin Therapy Range: 62.0-94.0 Blood BLOOD SPECIMEN / Unknown 11/25/2024 12:47 PM EDT 11/25/2024 12:52 PM EDT Mina Pires MD HEMATOLOGY ORDERABLES Chacha l Result [facility] [address] [phone] * Protime-INR (11/25/2024 12:47 PM EDT) Protime 14.0 11.5 - 14.2 sec 11/25/2024 12:47 PM EDT [facility] INR 1.1 11/25/2024 12:47 PM EDT [facility] Comment: Therapeutic Range: Moderate Anticoagulant Intensity: INR = 2.0-3.0 High Anticoagulant Intensity: INR = 2.5-3.5 Blood BLOOD SPECIMEN / Unknown 11/25/2024 12:47 PM EDT 11/25/2024 12:52 PM EDT Mina Pires MD HEMATOLOGY ORDERABLES Chacha l Result [facility] [address] [place] [address], [facility] [phone] * D-Dimer, Quantitative (11/25/2024 12:47 PM EDT) Only the most recent of2 resultswithin the time period is included. D-Dimer, Quant <0.27 0.00 - 0.59 ug/mL FEU 11/25/2024 12:47 PM EDT [facility] Comment: When combined with a [...] 12:52 PM EDT us Mina Pires MD HEMATOLOGY ORDERABLES Chacha l Result Performing Organization Address City/[facility]/ZIP Co de Phone Number [facility] [address] [place], [place] [id number] [place] [address] * Brain Natriuretic Peptide (11/25/2024 12:47 PM EDT) Only the most recent of2 resultswithin the time period is included. NT Pro-BNP 73 <300 pg/mL 11/25/2024 12:47 PM EDT [facility] Comment: An age-independent cutoff point of 300 pg/ml has a 98% negative predictive value excluding acute heart failure. Blood BLOOD SPECIMEN / Unknown 11/25/2024 12:47 PM EDT 11/25/2024 12:52 PM EDT us Mina Pires MD CHEMISTRY ORDERABLES Final Result Performing Organization Address [facility]/ZIP Co de Phone Number [facility] [address] [phone] * (ABNORMAL) Comprehensive Metabolic Panel (11/25/2024 12:47 PM EDT) Sodium 140 135 - 144 mmol/L 11/25/2024 12:47 PM EDT [facility] Potassium 3.8 3.7 - 5.3 mmol/L 11/25/2024 12:47 PM EDT [facility] Chloride 109(H) 98 - 107 mmol/L 11/25/2024 12:47 PM EDT [facility] CO2 20 20 - 31 mmol/L 11/25/2024 12:47 PM EDT [facility] Anion Gap 11 9 - 17 mmol/L 11/25/2024 12:47 PM EDT [facility] Glucose 104(H) 70 - 99 mg/dL 11/25/2024 12:47 PM EDT [facility] BUN 8 6 - 20 mg/dL 11/25/2024 12:47 PM EDT [facility] Creatinine 0.7 0.5 - 0.9 mg/dL 11/25/2024 12:47 PM EDT [facility] Est, Glom Filt Rate >90 >60 mL/min/1.7 3m2 11/25/2024 12:47 PM EDT [facility] Comment: These results are not [...] 8.6 - 10.4 mg/dL 11/25/2024 12:47 PM EDT [facility] Total Protein 7.0 6.4 - 8.3 g/dL 11/25/2024 12:47 PM EDT [facility] Albumin 4.5 3.5 - 5.2 g/dL 11/25/2024 12:47 PM EDT [facility] Albumin/Globulin Ratio 1.8 1.0 - 2.5 11/25/2024 12:47 PM EDT [facility] Total Bilirubin 0.6 0.3 - 1.2 mg/dL 11/25/2024 12:47 PM EDT [facility] Alkaline Phosphatase 68 35 - 104 U/L 11/25/2024 12:47 PM EDT [facility] ALT 24 5 - 33 U/L 11/25/2024 12:47 PM EDT [facility] AST 17 <32 U/L 11/25/2024 12:47 PM EDT [facility] Blood BLOOD SPECIMEN / Unknown 11/25/2024 12:47 PM EDT 11/25/2024 12:52 PM EDT Mina Pires MD CHEMISTRY ORDERABLES Final Result [facility] [address] [place] [address], [facility] [phone] * EXTENDED CARDIAC HOLTER MONITOR 3D-7D (HOOKUP IN OFFICE) (11/15/2024 12:57 PM EDT) Body Surface Area 1.67 m2 [facility] CV NOWHERE Anatomical Region Laterality Modality Cardiac Diagnost ic Narrative 11/21/2024 7:22 PM EDT Patient monitored for 4d 21h, analyzable time was 4d 21h starting on 11/15/2024 12:48 pm. Primary rhythm was Sinus Rhythm. Average heart rate was 68 bpm, Minimum heart rate was 44 bpm on Day :26:27 am, Max heart rate was 122 bpm on Day :13:27 pm PVC(s): [place] was < 0.01 %, 5 total PVC(s), [...] of the lungs are clear. Procedure Note CostaNoellePatrizia monreal, DO - 11/15/2024 EXAM: CTA HEAD NECK [...] age appropriate. IMPRESSION: No acute intracranial abnormality. us Bereket Pacheco MD IM CT ORDERABLES Final R esult * HCG Qualitative, Serum (11/15/2024 9:00 AM EDT) Preg, Serum NEGATIVE NEGATIVE 11/15/2024 9:00 AM EDT [facility] Comment: Specimens with hCG levels near the threshold of the test (25 mIU/mL) may give a negative or indeterminate result. In such cases, another test should be performed with a new specimen in 48-72 hours. If early is suspected clinically in this setting, correlation with quantitative serum b-hCG level is suggested. C-sam has confirmed the use of plasma for this test. This has not been cleared or approved by the U.S. Food and Drug Administration. The FDA has determined that such clearance is not necessary. Blood BLOOD SPECIMEN / Unknown 11/15/2024 9:00 AM EDT 11/15/2024 9:01 AM EDT us Bereket Pacheco MD CHEMISTRY ORDERABLES Chacha guy Result [facility] [address] [place] [address], [facility] [phone] * (ABNORMAL) BMP (11/15/2024 9:00 AM EDT) Sodium 138 135 - 144 mmol/L 11/15/2024 9:00 AM EDT [facility] Potassium 4.4 3.7 - 5.3 mmol/L 11/15/2024 9:00 AM EDT [facility] Chloride 106 98 - 107 mmol/L 11/15/2024 9:00 AM EDT [facility] CO2 22 20 - 31 mmol/L 11/15/2024 9:00 AM EDT [facility] Anion Gap 10 9 - 17 mmol/L 11/15/2024 9:00 AM T [facility] Glucose 104(H) 70 - 99 mg/dL 11/15/2024 9:00 AM EDT [facility] BUN 11 6 - 20 mg/dL 11/15/2024 9:00 AM EDT [facility] Creatinine 0.7 0.5 - 0.9 mg/dL 11/15/2024 9:00 AM EDT [facility] Est, Glom Filt Rate >90 >60 mL/min/1.7 3m2 11/15/2024 9:00 AM EDT [facility] Comment: These results are not intended [...] - 10.4 mg/dL 11/15/2024 9:00 AM EDT [facility] Blood BLOOD SPECIMEN / Unknown 11/15/2024 9:00 AM EDT 11/15/2024 9:01 AM EDT us Bereket Pacheco MD CHEMISTRY ORDERABLES Chacha l Result [facility] [address] [place], [place] [address] [phone] * (ABNORMAL) [facility] DIGITAL DIAGNOSTIC UNILATERAL RIGHT (04/27/2023 1:25 [...] patient. Narrative 04/27/2023 6:32 PM EST EXAM: [facility] DIGITAL DIAGNOSTIC UNILATERAL [...] under ultrasound guidance. us Duy Mcclelland MD [facility] [place] [place] MAMMOGRAPHY ORDERABLES Fi nal Result * PRINTING MACHINIST Cytology (02/26/2023 12:00 AM EDT) Cytology Report Path Number: [id number] DIAGNOSIS Imaged ThinPrep Pap - Cervical (1 monolayer slide): Specimen Adequacy: Satisfactory for evaluation. - Endocervical/trans formation zone component present. Descriptive Diagnosis: Negative for intraepithelial lesion or malignancy. Comments: Specimen was screened at [facility], [address] [place] [address] [employer]otech Screener: KUNAL Electronically Signed Out PARMINDER Jung(ASCP) cs/03/06/2023 Source of Specimen: A: Imaged ThinPrep Pap - Cervical (1 monolayer slide) HPV Reflex?........... 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 [facility] [facility] ANATOMIC PATHOLOGY [address] [facility]. [place], [place] [address] 10-20 [facility] CERVICAL MATERIAL 02/26/2023 023 9:25 AM EDT Duy Mcclelland MD PATHOLOGY/CYTOLOGY ORDERABLES Final Result [facility] [address] [place], [place] [address] [phone] [facility] LABS from Last 3 Months or Most Recently Relevant to Health Maintenance Insurance Care Teams Light Equipment Operator Relationship Specialty Start Date End Date Abhay Moreno MD [address] [place] [address] PCP - General 10/13/12
--- OUTSIDE RECORDS SUMMARY | 2025-01-31 11:15 | XMS_ITS | Encounter Summary ---
Author Organization [facility] Address [address], [address] [place] [address] Care Team Providers Care Health Type Technician Name Role Phone Abhay Moreno MD Primary Care Provider [phone] Reason for Referral * Imaging (Emergency) - Closed Specialty Diagnoses / Procedures Referred By Contnito t Referred To Contact Radiology Diagnoses Contusion of head, unspecified part of head, initial encounter Procedures CT HEAD WO CONTRAST Mariya Landrum APRN - NP [facility] [address] [place] [address] Phone: tel: Referral ID Status Reason Start Date Expiration Date Visits Re quested Visits Authorized [id number] Closed 01/22/2021 01/22/2022 1 1 Encounter Details Date Type Department Care Team (Latest Contact Info) Description 01/22/2021 Transcribe Orders [facility] [address] [place], [place] [id number] Mariya Landrum APRN - NP Contusion of [...] Info) Description 02/01/2025 10:00 AM EDT Appointment [facility] [address] [place] [address] 02/05/2025 10:00 AM EDT Appointment [facility] [address] [facility] [place] [address] 02/06/2025 10:00 AM EDT Appointment [facility] [address] [place] [address] 02/08/2025 10:00 AM EDT Appointment [facility] [address] [facility] [place] [address] 02/12/2025 10:00 AM EDT Appointment [facility] [address] [place] [address] 02/13/2025 10:00 AM EDT Appointment [facility] [address] [facility] [place] [address] 02/15/2025 10:00 AM EDT Appointment [facility] [address] [place] [address] 02/19/2025 10:00 AM EDT Appointment [facility] [address] [place] [address] 02/20/2025 10:00 AM EDT Appointment [facility] [address] [facility] [place] [address] 02/22/2025 10:00 AM EDT Appointment [facility] [address] [facility] [place] [address] 02/26/2025 10:00 AM EDT Appointment [facility] [address] [facility] [place] [address] 02/27/2025 10:00 AM EDT Appointment [facility] [address] [place] [address] 03/01/2025 10:00 AM EDT Appointment [facility] [address] [place] [address] 03/05/2025 10:00 AM EDT Appointment [facility] [address] [place] [address] 03/06/2025 10:00 AM EDT Appointment [facility] [address] [place] [address] 03/08/2025 10:00 AM EDT Appointment [facility] [address] [place] [address] 03/12/2025 10:00 AM EDT Appointment [facility] [address] [facility] [place] [address] 03/13/2025 10:00 AM EDT Appointment [facility] [address] [place] [address] 03/15/2025 10:00 AM EDT Appointment [facility] [address] [place] [address] 03/19/2025 10:00 AM EDT Appointment [facility] [address] [place] [address] 03/20/2025 10:00 AM EDT Appointment [facility] [address] [place] [address] 03/22/2025 10:00 AM EDT Appointment [facility] [address] [place] [address] 03/26/2025 10:00 AM EDT Appointment [facility] [address] [place] [address] 03/27/2025 10:00 AM EDT Appointment [facility] [address] [facility] [place] [address] 03/29/2025 10:00 AM EDT Appointment [facility] [address] [place] [address] 04/02/2025 10:00 AM EDT Appointment [facility] [address] [place] [address] 04/03/2025 10:00 AM EDT Appointment [facility] [address] [place] [address] 04/05/2025 10:00 AM EDT Appointment [facility] [address] [place] [address] 04/09/2025 10:00 AM EDT [facility]ment [facility] [address] [place] [address] 04/10/2025 10:00 AM EDT Appointment [facility] [address] [place] [address] 04/12/2025 10:00 AM EDT Appointment [facility] [address] [place] [address] 04/16/2025 10:00 AM EST Appointment [facility] [address] [place] [address] documented as of this encounter Results * [...] Intact calvarium and skull base. Mariya Diallo FORM STRIPPER - ORTHOPEDIC BRACE MAKER IMG CT ORDERABLES Final R esult documented in this encounter Visit Diagnoses Diagnosis Contusion of head, unspecified part of head, initial encounter- Primary Contusion of head, unspecified part of head, initial encounter documented in this encounter Additional Health Concerns Infection Onset Date Last Indicated Resolved Time COVID-19 (Rule Out) 09/04/2021 09/04/2021 09/05/19 22 8:39 AM EDT documented as of this encounter Care Teams Health Type Technician Relationship Specialty Start Date End Date Abhay Moreno MD [address] [place] [address] PCP - General 10/13/12 documented as of this encounter
--- OUTSIDE RECORDS SUMMARY | 2025-01-31 11:15 | XMS_ITS | Encounter Summary ---
Author Organization [facility] Address [address], [address] [place] [address] Care Team Providers Care Wax Pattern Repairer Name Role Phone Abhay Moreno MD Primary Care Provider [phone] Encounter Details Date Type Department Care Team (Late Contact Info) Description 03/11/2023 Orders Only [facility] Part of [address] [place] [phone] Provider, MD Vinay Social History Tobacco Use [...] Department Care Team ([facility] Contact Info) Description 02/01/2025 10:00 AM EDT Appointment [facility] [address] [place] [address] 02/05/2025 10:00 AM EDT Appointment [facility] [address] [place] [address] 02/06/2025 10:00 AM EDT Appointment [facility] [address] [place] [address] 02/08/2025 10:00 AM EDT Appointment [facility] [address] [place] [address] 02/12/2025 10:00 AM EDT Appointment [facility] [address] [facility] [place] [address] 02/13/2025 10:00 AM EDT Appointment [facility] [address] [facility] [place] [address] 02/15/2025 10:00 AM EDT Appointment [facility] [address] [facility] [place] [address] 02/19/2025 10:00 AM EDT Appointment [facility] [address] [facility] [place] [address] 02/20/2025 10:00 AM EDT Appointment [facility] [address] [facility] [place] [address] 02/22/2025 10:00 AM EDT Appointment [facility] [address] [facility] [place] [address] 02/26/2025 10:00 AM EDT Appointment [facility] [address] [facility] [place] [address] 02/27/2025 10:00 AM EDT Appointment [facility] [address] [facility] [place] [address] 03/01/2025 10:00 AM EDT Appointment [facility] [address] [place] [address] 03/05/2025 10:00 AM EDT Appointment [facility] [address] [facility] [place] [address] 03/06/2025 10:00 AM EDT Appointment [facility] [address] [place] [address] 03/08/2025 10:00 AM EDT Appointment [facility] [address] [facility] [place] [address] 03/12/2025 10:00 AM EDT Appointment [facility] [address] [place] [address] 03/13/2025 10:00 AM EDT Appointment [facility] [address] [place] [address] 03/15/2025 10:00 AM EDT Appointment [facility] [address] [facility] [place] [address] 03/19/2025 10:00 AM EDT Appointment [facility] [address] [place] [address] 03/20/2025 10:00 AM EDT Appointment [facility] [address] [place] [address] 03/22/2025 10:00 AM EDT Appointment [facility] [address] [facility] [place] [address] 03/26/2025 10:00 AM EDT Appointment [facility] [address] [facility] [place] [address] 03/27/2025 10:00 AM EDT Appointment [facility] [address] [place] [address] 03/29/2025 10:00 AM EDT Appointment [facility] [address] [place] [address] 04/02/2025 10:00 AM EDT Appointment [facility] [address] [place] [address] 04/03/2025 10:00 AM EDT Appointment [facility] [address] [place] [address] 04/05/2025 10:00 AM EDT Appointment [facility] [address] [place] [address] 04/09/2025 10:00 AM EDT Appointment [facility] [address] [place] [address] 04/10/2025 10:00 AM EDT Appointment [facility] [address] [place] [address] 04/12/2025 10:00 AM EDT Appointment [facility] [address] [place] [address] 04/16/2025 10:00 AM EST Appointment [facility] [address] [place] [address] documented as of this encounter Procedures Procedure [...] Anatomical Region Laterality Modality Computed Tomogra phy [facility] Provider MD CRONIN CT ORDERABLES Final R esult * CTA CHEST W WO CONTRAST (09/04/2022) Anatomical Region Laterality Modality Chest, Vascular Computed Tomogra phy [facility] Provider MD CRONIN CT ORDERABLES Final R esult * US Renal Limited (09/01/2022) Anatomical Region Laterality Modality Abdomen Other Historical Provider MD CRONIN US ORDERABLES Final R esult * XR Abdomen Kub 1 VW (08/26/2022) Anatomical Region Laterality Modality Radiographic Izabel ging Historical Provider MD CRONIN DIAGNOSTIC IMAGING OR DERABLES Final Result * XR CHEST 1 VIEW (09/04/2021) Anatomical Region Laterality Modality Chest Radiographic Izabel ging [facility] Provider MD CRONIN DIAGNOSTIC IMAGING OR DERABLES Final Result * CHG RADEX SPINE CERVICAL 4 OR 5 VIEWS (12/10/2020) [facility] Provider MD [place] IMAGING Final Res ult * XR Shoulder Left 2 VW (12/10/2020) Anatomical Region Laterality Modality Radiographic Izabel ging Result [facility] Provider MD CRONIN DIAGNOSTIC IMAGING OR DERABLES Final Result * XR KNEE RIGHT (MIN 4 VIEWS) (01/09/2019) Anatomical Region Laterality Modality Thigh, Knee, Leg Radiographic Im aging Result [facility] Provider MD CRONIN DIAGNOSTIC IMAGING OR DERABLES Final Result * US Pelvis Non OB Limited Follow Up (02/16/2018) Anatomical Region Laterality Modality Other Result [facility] Provider MD CRONIN US ORDERABLES Final R esult * HCHG X-RAY LUMBAR SPINE 4 VW (09/29/2017) Result [facility] Provider MD BRITO IMAGING Final Res ult * XR SACRUM COCCYX 2 VW (09/29/2017) Anatomical Region Laterality Modality Radiographic Izabel ging Result [facility] Provider MD CRONIN DIAGNOSTIC IMAGING OR DERABLES Final Result * CT Abdomen Pelvis W Contrast (06/03/2016) Anatomical Region Laterality Modality Computed Tomogra phy Result [facility] Provider MD CRONIN CT ORDERABLES Final R esult * JODEE DIAGNOSTIC W CAD BILATERAL (02/10/2013) Anatomical Region Laterality Modality Breast Bilateral Mammography Result [facility] Provider MD CRONIN MAMMOGRAPHY ORDERABLE S Final Result * JODEE DIAGNOSTIC W CAD BILATERAL (01/27/2011) Anatomical Region Laterality Modality Breast Bilateral Mammography Result [facility] Provider MD CRONIN MAMMOGRAPHY ORDERABLE S Final Result documented in this encounter Visit Diagnoses Not on filedocumented in this encounter Care Teams Wax Pattern Repairer Relationship Specialty Start Date End Date Abhay Moreno MD [address] [place] [address] PCP - General 10/13/12 documented as of this encounter
--- OUTSIDE RECORDS SUMMARY | 2025-01-31 11:15 | XMS_ITS | Encounter Summary ---
Author Organization [facility] Address [address] [place] [address] Care Team Providers Care Player Manager Name Role Phone Abhay Moreno MD Primary Care Provider [phone] Source Comments In the event this information is protected by the Federal Confidentiality of Alcohol and Drug AbusePatient Records regulations: The Federal rules restrict any use of the information to criminally investigate or prosecute any alcohol or drug abuse patient.[facility] Encounter Details Date Type Department Care Team (Late st Contact Info) Description 01/25/2025 Patient Msg [facility] [address] [place] [address] Kirby Olivarse MD [address] [place] [address] recommended follow up Social History Tobacco Use Types Packs/Day Years Used Date Smoking Tobacco: Every Day Cigarettes Started: 06/14/1999 Area Deprivation Index Answer Date Obi rded National Score (1-100), lower number is lower ri sk 79 12/20/2024 State Score (1-10), lower number is lower risk 7 12/20/2024 Data from: https://www.neighborhoodatlas.medicine.[facility].edu/. Last address used for calculation [address] 12/20/2024 Comments Unknown Sex and Gender Information Value Date Recorded Sex Assigned at Not on file Legal Sex Female 8:07 AM EDT Gender Identity Not on file Sexual Orientation Not on file documented as of this encounter Miscellaneous Notes * Telephone Encounter - Mars Tony RN - 01/25/2025 11:51 AM EDT Images from the original note were not included. documented in this encounter Plan of Treatment Upcoming Encounters Date Type Department Care Team (Late st Contact Info) Description 02/20/2025 9:00 AM EDT Office Visit Cardiology [address] [place] [address] Heart Failure 02/20/2025 9:15 AM EDT Procedure Cardiology [address] [place] [id number] Heart Failure 02/20/2025 10:15 AM EDT Office Visit Cardiology [address] [place] [phone] Isaac Zambrano MD [address] [place] [address] Heart Failure 02/20/2025 1:00 PM EDT Office Visit Neurology [address] [place] [address] Mina Shelby MD [address] [place] [address] Symptoms of right-sided weakness, neck pain, and paresthesias in the upper extremities - per Dr. Olivares documented as of this encounter Visit Diagnoses Not on filedocumented in this encounter Care Teams Player Manager Relationship Specialty Start Date End Date Abhay Moreno MD [address] [place] [address] PCP - General Family Medicine 12/19/24 documented as of this encounter
--- OUTSIDE RECORDS SUMMARY | 2025-01-31 11:15 | XMS_ITS | Clinical Summary ---
Author Organization [facility] Address [address] [place], [place] [id number] Care Team Providers Care Senior Pensions Administrator Name Role Phone Abhay Moreno MD Primary Care Provider [phone] Allergies Active Allergy Reactions Criticality Noted Date Comments Adhesive Other: See Comments 05/24/2013 Other reaction(s): other Bacitracin Rash Low 10/29/2024 Cephalexin Vomiting Low 02/26/2023 Other reaction(s): Unknown Desonide Other: See Comments High 09/12/1994 Other reaction(s): Other (See Comments) Unknown Unknown Fentanyl Anaphylaxis High 08/29/2024 Ibuprofen Other: See Comments High 10/13/2012 Other reaction(s): Other (See Comments) Rectal bleed Rectal bleed Latex Other: See Comments High 10/13/2012 Other reaction(s): Hives, Other (See Comments) Burning Burning Morphine Other: See Comments 02/26/2023 Other reaction(s): Other (See Comments) Labored breathing, chest tightening. Labored breathing, chest tightening. Penicillins Anaphylaxis,Rash High 10/13/2012 Other reaction(s): other Prednisone Swelling High 06/05/2016 Medications ALPRAZolam (XANAX) 0.25 mg tablet Take 0.25 mg by mouth three times a day as needed. 5 Active aspirin 81 mg chewable tablet Take 81 mg by mouth once daily. 5 09/30/19 26 Active Cholecalciferol , Vitamin D3, 50 mcg (2,000 unit) cap Take 1 capsule by mouth every morning. 4 Active losartan (COZAAR) 50 mg tablet Take 50 mg by mouth once daily. 5 09/30/19 26 Active meclizine 25 mg chewable tablet(s) Take 25 mg by mouth every 12 hours. Active metoprolol succinate ER (TOPROL XL) 50 mg 24 hr tablet Take 50 mg by mouth once daily. 10/31/19 Active predniSONE (DELTASONE) 20 mg tablet Take 20 mg by mouth once daily. Active spironolactone (ALDACTONE) 25 mg tablet Take 50 mg by mouth daily at bedtime. 10/31/19 26 Active tamsulosin (FLOMAX) 0.4 mg Take 0.4 mg by mouth once daily. Active tiZANidine (ZANAFLEX) 4 mg tablet Take 4 mg by mouth every 8 hours as needed. Active valACYclovir (VALTREX) 1 gram tablet Take 1,000 mg by mouth once daily. Active triamcinolone acetonide (KENALOG) 0.1 % cream Apply 1 application to affected area two times a day. Active Encounters Date Type Department Care Team Description 01/25/2025 Patient [facility] [address] [place] [address] Johnathan Olivares MD recommended follow up 01/25/2025 Orders Only Cerebrovascular [place] [id number] Johnathan Olivares MD Spinal stenosis of cervical region (Primary Dx) 01/16/2025 Telephone Cerebrovascular [place] [id number] Johnathan Olivares MD [facility] - Other (Imaging ); Received Outside Medical Records 01/15/2025 Get Medical Advice [facility] Center [address] [place], [place] [phone] Johnathan Olivares MD MRI/ heart monitor 12/21/2024 Telephone Cerebrovascular [place] [phone] Johnathan Olivares MD Orders 12/20/2024 9:00 AM EDT Office Visit Cerebrovascular [place] [phone] Johnathan Olivares MD Syncope and collapse (Primary Dx); Spinal stenosis of cervical region 12/20/2024 Patient [facility] [address] [place], [place] [phone] Johnathan Olivares MD MRI Cervical 12/20/2024 Telephone Cerebrovascular Center [address] [place] [address] Johnathan Olivares MD 12/20/2024 Travel 12/08/2024 Telephone Neurology [address] [place] [address] Johnathan Olivares MD Imaging/Records 12/06/2024 Telephone Cerebrovascular Center [address] [place] [phone] Provider, Neurology Referral Information (Patient has referral to see a stroke physician see referral from [facility]. //) 11/17/2024 Orders Only Cardiology [address] [place] [phone] Isaac Zambrano MD Diastolic heart failure, unspecified HF chronicity (HCC) (Primary Dx) from Last 3 Months Family History Medical History Relation Comments Aneurysm Maternal Grandfather brain Colon Cancer Maternal Grandfather Heart Attack Maternal Grandfather Diabetes Mother Hypertension Mother Kidney Disease Mother Mitral valve prolapse Mother Relation Status Comments Maternal Grandfather Mother Social History Tobacco Use Types Packs/Day Years Used Date Smoking Tobacco: Every Day Cigarettes Started: 06/14/1999 Tobacco Cessation:Ready to Q uit: Not Asked; Counseling Given: Not Answered Area Deprivation Index Answer Date Obi rded National Score (1-100), lower number is lower ri sk 79 12/20/2024 State Score (1-10), lower number is lower risk 7 12/20/2024 Data from: https://www.neighborhoodatlas.medicine.[facility].edu/. Last address used for calculation [address] 12/20/2024 Comments Unknown Sex and Gender Information [...] Mass Index 20.67 12/20/2024 8:37 AM EDT Plan of Treatment Upcoming Encounters Date Type Department Care Team (Late st Contact Info) Description 02/20/2025 9:00 AM EDT Office Visit Cardiology [address] [place] [address] Heart Failure 02/20/2025 9:15 AM EDT Procedure Cardiology [address] [place] [address] Heart Failure 02/20/2025 10:15 AM EDT Office Visit Cardiology [address] [place] [address] Isaac Zambrano MD [address] [place] [address] Heart Failure 02/20/2025 1:00 PM EDT Office Visit Neurology [address] [place] [address] Mina Shelby MD [address] [place] [address] Symptoms of right-sided weakness, neck pain, and paresthesias in the upper extremities - per Dr. Olivares Health Maintenance Due Date Last Done Comments Anxiety Screening 1996 Depression Screening 1996 HIV Screening 1996 Hepatitis C Screening 1996 DTaP,Tdap,Td Vaccine (2 - Tdap) 1997 9 Hepatitis B Vaccine (1 of 3 - 19+ 3-dose series) 1997 Pneumococcal Vaccine (1 of 2 - PCV) 1997 Cervical Cancer Screening 11/11/1999 CT Colonography 11/11/2023 Cologuard (FIT-DNA) 11/11/2023 Colonoscopy 11/11/2023 Colorectal Cancer Screening 11/11/2023 Fecal Occult Blood 11/11/2023 Lipid Screening 11/11/2023 Sigmoidoscopy 11/11/2023 Mammogram Screening 05/04/2024 05/04/2023, 05/04/2023, 04/27/2023, Additional history exists Influenza Vaccine (#1) 2025 Diabetes Screening 11/26/2027 11/25/2024, 0 11/15/2024, 10/29/2024, Additional history exists Procedures Procedure Name Priority Date/Time Associated Diagnosis Comments OUTSIDE VENDOR CARDIAC OUTPATIENT EXTENDED RHYTHM RECORDING (WITHOUT TELEMETRY) Routine 01/09/2025 8:03 PM EDT Syncope and collapse MRI OUTSIDE CD DICOM IMPORT 01/02/2025 MRI OUTSIDE CD DICOM IMPORT 11/27/2024 XR OUTSIDE CD DICOM IMPORT 11/25/2024 CT OUTSIDE CD DICOM IMPORT 11/17/2024 CT OUTSIDE CD DICOM IMPORT 11/17/2024 CT OUTSIDE CD DICOM IMPORT 11/17/2024 CT OUTSIDE CD DICOM IMPORT 11/15/2024 CT OUTSIDE CD DICOM IMPORT 11/15/2024 from Last 3 Months Results * OUTSIDE VENDOR CARDIAC OUTPATIENT EXTENDED RHYTHM RECORDING (WITHOUT TELEMETRY) (01/09/2025 8:03 PMEDT) 01/09/2025 8:03 PM EDT Narrative Procedure Note Chava Enriquez MD - 12/20/2024 8:24 AM EDT Sinus rhythm throughout All patient triggered events correlated to sinus rhythm. Chava Enriuqez MD 01/16/25 12:38 PM EPS Patient Name: Tammy Segovia : 1980 Ordering Provider: JOHNATHAN APPLE Indication: [...] no VE Couplets or VE Triplets werepresent. Johnathan Olivares MD HOLTER Final Result [facility] * MR-MR CERVICAL SPINE WO CON IMPORT (01/02/2025) Anatomical Region Laterality Modality Other 01/02/2025 Narrative 01/17/2025 12:39 AM EDT Images were obtained outside of [facility] Procedure Note Provider, [facility] [place] - 01/17/2025 Images were obtained outside of [facility] Provider MRI Final Result * MR-MR HEAD/BRAIN WO CON IMPORT (11/27/2024) Anatomical Region Laterality Modality Other 11/27/2024 Narrative 01/17/2025 12:39 AM EDT Images were obtained outside of [facility] Procedure Note Provider, [facility] [place] - 01/17/2025 Images were obtained outside of [facility] Provider MRI Final Result * DX-XR CHEST PORTABLE IMPORT (11/25/2024) Anatomical Region Laterality Modality Other 11/25/2024 Narrative 12/11/2024 8:57 AM EDT Images were obtained outside of [facility] Procedure Note Provider, [facility] [place] - 12/11/2024 Images were obtained outside of [facility] Provider RADIOLOGY Final Result * CT-CT ANGIO NECK IMPORT (11/17/2024) Anatomical Region Laterality Modality Other 11/17/2024 Narrative 01/17/2025 12:39 AM EDT Images were obtained outside of [facility] Procedure Note Provider, [facility] [place] - 01/17/2025 Images were obtained outside of [facility] Provider RADIOLOGY Final Result * CT-CT HEAD/BRAIN WO CON IMPORT (11/17/2024) Anatomical Region Laterality Modality Other 11/17/2024 Narrative 01/17/2025 12:39 AM EDT Images were obtained outside of [facility] Procedure Note Provider, [facility] [place] - 01/17/2025 Images were obtained outside of [facility] Provider RADIOLOGY Final Result * OT-CT ANGIO HEAD IMPORT (11/17/2024) Anatomical Region Laterality Modality Other 11/17/2024 Narrative 01/17/2025 12:39 AM EDT Images were obtained outside of [facility] Procedure Note Provider, [facility] [place] - 01/17/2025 Images were obtained outside of [facility] Provider RADIOLOGY Final Result * CT-CTA HEAD W CON AND CTA NECK W CON IMPORT (11/15/2024) Anatomical Region Laterality Modality Other 11/15/2024 Narrative 12/11/2024 9:04 AM EDT Images were obtained outside of [facility] Procedure Note Provider, [facility] [place] - 12/11/2024 Images were obtained outside of [facility] Provider RADIOLOGY Final Result * CT-CT HEAD WO CONTRAST IMPORT (11/15/2024) Anatomical Region Laterality Modality Other 11/15/2024 Narrative 12/11/2024 9:03 AM EDT Images were obtained outside of [facility] Procedure Note Provider, [facility] [place] - 12/11/2024 Images were obtained outside of [facility] Provider RADIOLOGY Final Result from Last 3 Months Insurance BLUE CARD PPO [place] Care Teams Senior Pensions Administrator Relationship Specialty Start Date End Date Abhay Moreno MD [address] [place] [address] PCP - General Family Medicine 12/19/24
--- OUTSIDE RECORDS SUMMARY | 2025-01-31 11:15 | XMS_ITS | Encounter Summary ---
Author Organization [facility] Address [address], [address] [place] [address] Care Team Providers Care Motion Picture Camera Operator Name Role Phone Abhay Moreno MD Primary Care Provider [phone] Encounter Details Date Type Department Care Team (Late Contact Info) Description 03/15/2023 Orders Only [facility] Part of [address] [place] [phone] Provider, MD Vinay Social History Tobacco Use [...] Upcoming Encounters Date Type Department Care Team ([facility] Contact Info) Description 02/01/2025 10:00 AM EDT Appointment [facility] [address] [place] [address] 02/05/2025 10:00 AM EDT Appointment [facility] [address] [place] [address] 02/06/2025 10:00 AM EDT Appointment [facility] [address] [place] [address] 02/08/2025 10:00 AM EDT Appointment [facility] [address] [place] [address] 02/12/2025 10:00 AM EDT Appointment [facility] [address] [facility] [place] [address] 02/13/2025 10:00 AM EDT Appointment [facility] [address] [facility] [place] [address] 02/15/2025 10:00 AM EDT Appointment [facility] [address] [facility] [place] [address] 02/19/2025 10:00 AM EDT Appointment [facility] [address] [facility] [place] [address] 02/20/2025 10:00 AM EDT Appointment [facility] [address] [facility] [place] [address] 02/22/2025 10:00 AM EDT Appointment [facility] [address] [facility] [place] [address] 02/26/2025 10:00 AM EDT Appointment [facility] [address] [facility] [place] [address] 02/27/2025 10:00 AM EDT Appointment [facility] [address] [facility] [place] [address] 03/01/2025 10:00 AM EDT Appointment [facility] [address] [place] [address] 03/05/2025 10:00 AM EDT Appointment [facility] [address] [facility] [place] [address] 03/06/2025 10:00 AM EDT Appointment [facility] [address] [place] [address] 03/08/2025 10:00 AM EDT Appointment [facility] [address] [facility] [place] [address] 03/12/2025 10:00 AM EDT Appointment [facility] [address] [place] [address] 03/13/2025 10:00 AM EDT Appointment [facility] [address] [place] [address] 03/15/2025 10:00 AM EDT Appointment [facility] [address] [facility] [place] [address] 03/19/2025 10:00 AM EDT Appointment [facility] [address] [place] [address] 03/20/2025 10:00 AM EDT Appointment [facility] [address] [place] [address] 03/22/2025 10:00 AM EDT Appointment [facility] [address] [facility] [place] [address] 03/26/2025 10:00 AM EDT Appointment [facility] [address] [facility] [place] [address] 03/27/2025 10:00 AM EDT Appointment [facility] [address] [place] [address] 03/29/2025 10:00 AM EDT Appointment [facility] [address] [place] [address] 04/02/2025 10:00 AM EDT Appointment [facility] [address] [place] [address] 04/03/2025 10:00 AM EDT Appointment [facility] [address] [place] [address] 04/05/2025 10:00 AM EDT Appointment [facility] [address] [place] [address] 04/09/2025 10:00 AM EDT Appointment [facility] [address] [place] [address] 04/10/2025 10:00 AM EDT Appointment [facility] [address] [place] [address] 04/12/2025 10:00 AM EDT Appointment [facility] [address] [place] [address] 04/16/2025 10:00 AM EST Appointment [facility] [address] [place] [address] documented as of this encounter Procedures Procedure Name Priority Date/Time Associated Diagnosis Comments CT ABDOMEN PELVIS W CONTRAST Routine 02/18/2023 [facility] DIGITAL DIAGNOSTIC UNILA TERAL LEFT Routine 09/19/2010 JODEE DIAGNOSTIC BILATERAL Routine 07/24/2010 documented in this encounter Results * CT Abdomen Pelvis W Contrast (02/18/2023) Anatomical Region Laterality Modality Computed Tomogra phy Historical Provider MD CRONIN CT ORDERABLES Final R esult * [facility] Digital Diagnostic Unilateral Left (09/19/2010) Anatomical Region Laterality Modality Mammography Historical Provider MD CRONIN MAMMOGRAPHY ORDERABLE S Final Result * JODEE DIAGNOSTIC W CAD BILATERAL (07/24/2010) Anatomical Region Laterality Modality Breast Bilateral Mammography [facility] Provider MD CRONIN MAMMOGRAPHY ORDERABLE S Final Result documented in this encounter Visit Diagnoses Not on filedocumented in this encounter Care Teams Motion Picture Camera Operator Relationship Specialty Start Date End Date Abhay Moreno MD [address] [place] [address] PCP - General 10/13/12 documented as of this encounter
--- OUTSIDE RECORDS SUMMARY | 2025-01-31 11:15 | XMS_ITS | Encounter Summary ---
Author Organization [facility] Address [address] [place] [address] Care Team Providers Care Coding Clerks Supervisor Name Role Phone Abhay Moreno MD Primary Care Provider [phone] Source Comments In the event this information is protected by the Federal Confidentiality of Alcohol and Drug AbusePatient Records regulations: The Federal rules restrict any use of the information to criminally investigate or prosecute any alcohol or drug abuse patient.[facility] Reason for Visit * Reason Comments [facility] - Other Imaging Received Outside Medical Records Encounter Details Date Type Department Care Team (Late st Contact Info) Description 01/16/2025 Telephone [facility] [address] [place] [phone] Kirby Olivares MD [address] [place] [address] [facility] - Other (Imaging ); Received Outside Medical Records Social History Tobacco Use Types Packs/Day Years Used Date Smoking Tobacco: Every Day Cigarettes Started: 06/14/1999 Area Deprivation Index Answer Date Obi rded National Score (1-100), lower number is lower ri sk 79 12/20/2024 State Score (1-10), lower number is lower risk 7 12/20/2024 Data from: https://www.neighborhoodatlas.medicine.[facility].edu/. Last address used for calculation [address] 12/20/2024 Comments Unknown Sex and Gender Information Value Date Recorded Sex Assigned at Not on file Legal Sex Female 8:07 AM EDT Gender Identity Not on file Sexual Orientation Not on file documented as of this encounter Miscellaneous Notes * Telephone Encounter - Graham Pan - 01/17/2025 11:18 AM EDT Received additional outside medical records from [facility] (imaging reports) Scanned into patient chart * Telephone Encounter - Linda Pastor RN - 01/16/2025 1:43 PM EDT Images from the original note were not included. Fax to [phone] for imaging 01/02/2025 MRI brain Linda Pastor RN January 16, 2025 1:50 PM documented in this encounter Plan of Treatment Upcoming Encounters Date Type Department Care Team (Late st Contact Info) Description 02/20/2025 9:00 AM EDT Office Visit Cardiology [address] [place], [place] [id number] Heart Failure 02/20/2025 9:15 AM EDT Procedure Cardiology [address] [place] [address] Heart Failure 02/20/2025 10:15 AM EDT Office Visit Cardiology [address] [place] [address] Isaac Zambrano MD [address] [place] [address] Heart Failure 02/20/2025 1:00 PM EDT Office Visit Neurology [address] [place] [address] Mina Shelby MD [address] [place] [address] Symptoms of right-sided weakness, neck pain, and paresthesias in the upper extremities - per Dr. Olivares documented as of this encounter Visit Diagnoses Not on filedocumented in this encounter Care Teams Coding Clerks Supervisor Relationship Specialty Start Date End Date Abhay Moreno MD [address] [place] [address] PCP - General Family Medicine 12/19/24 documented as of this encounter
--- OUTSIDE RECORDS SUMMARY | 2025-01-31 11:15 | XMS_ITS | Encounter Summary ---
Author Organization [facility] Address [address] [place] [address] Care Team Providers Care Geodetic Surveyor Technologist Name Role Phone Abhay Moreno MD Primary Care Provider [phone] Source Comments In the event this information is protected by the Federal Confidentiality of Alcohol and Drug AbusePatient Records regulations: The Federal rules restrict any use of the information to criminally investigate or prosecute any alcohol or drug abuse patient.[facility] Encounter Details Date Type Department Care Team (Late st Contact Info) Description 01/25/2025 Orders Only [facility] [address] [place] [address] Kirby Olivares MD [address] [place] [address] Spinal stenosis of cervical region (Primary Dx) Social History Tobacco Use Types Packs/Day Years Used Date Smoking Tobacco: Every Day Cigarettes Started: 06/14/1999 Area Deprivation Index Answer Date Obi rded National Score (1-100), lower number is lower ri sk 79 12/20/2024 State Score (1-10), lower number is lower risk 7 12/20/2024 Data from: https://www.neighborhoodatlas.medicine.[facility].edu/. Last address used for calculation [address] [facility] 12/20/2024 Comments Unknown Sex and Gender Information Value Date Recorded Sex Assigned at Not on file Legal Sex Female 8:07 AM EDT Gender Identity Not on file Sexual Orientation Not on file documented as of this encounter Plan of Treatment Upcoming Encounters Date Type Department Care Team (Late st Contact Info) Description 02/20/2025 9:00 AM EDT Office Visit Cardiology [address] [place] [address] Heart Failure 02/20/2025 9:15 AM EDT Procedure Cardiology [address] [place] [address] Heart Failure 02/20/2025 10:15 AM EDT Office Visit Cardiology [address] [place] [address] Isaac Zambrano MD [address] [place] [address] Heart Failure 02/20/2025 1:00 PM EDT Office Visit Neurology [address] [place] [address] Mina Shelby MD [address] [place] [address] Symptoms of right-sided weakness, neck pain, and paresthesias in the upper extremities - per Dr. Olivares Scheduled Orders Name Type Priority Associated Diagnoses Orde r Schedule VITAMIN B12 Lab Routine Spinal stenosis of cervical region Expected: 01/25/2025, Expires: 04/26/2025 FOLATE, SERUM Lab Routine Spinal stenosis of cervical region Expected: 01/25/2025, Expires: 04/26/2025 COPPER BLOOD Lab Routine Spinal stenosis of cervical region Expected: 01/25/2025, Expires: 04/26/2025 VITAMIN E/TOCOPHEROL Lab Routine Spinal stenosis of cervical region Expected: 01/25/2025, Expires: 04/26/2025 documented as of this encounter Visit Diagnoses Diagnosis Spinal stenosis of cervical region- Primary Spinal stenosis in cervical region documented in this encounter Care Teams Geodetic Surveyor Technologist Relationship Specialty Start Date End Date Abhay Moreno MD [address] [place] [address] PCP - General Family Medicine 12/19/24 documented as of this encounter
--- OUTSIDE RECORDS SUMMARY | 2025-01-31 11:15 | XMS_ITS | Encounter Summary ---
Author Organization [facility] Address [address] [place] [address] Care Team Providers Care Aircraft Technician Name Role Phone Abhay Moreno MD Primary Care Provider [phone] Linda Pastrana MD Unavailable [phone] Reason for Visit * Reason Onset Date Comments ECHO scheduling 01/16/2025 Encounter Details Date Type Department Care Team (Late st Contact Info) Description 01/16/2025 Telephone [facility] V[facility] [address] [place] [phone] Lashay Parikh MA ECHO scheduling Social History Tobacco Use Types Packs/Day Years [...] Recorded Patient Health Questionnaire-2 Score 4 01/25/2025 ID Safety & Environment Answer Date Rec orded [...] PM EST documented as of this encounter Functional Status documented as of this encounter Miscellaneous Notes * Telephone Encounter - Lashay Parikh MA - 01/25/2025 2:44 PM EDT Called nikhil to see if patient is scheduled for her ECHO they stated that they did not have her scheduled yet. They do her an order and will schedule her once the pre cert is completed. She would need the ECHO in about a month and this told to radiology she voiced her understanding. * Telephone Encounter - Lashay Parikh MA - 01/16/2025 2:16 PM EDT Call placed to patient to see how she was doing and offer appt. She stated that she is doing fine. She stated that she is having consist pain in left back shoulder and by her sternum. She rated pain as a 7. No draining ore bleeding. She is doing cardiotherapy. She is scheduled to see us 01/25 @130 documented in this encounter Plan of Treatment Not on file documented as of this encounter Visit Diagnoses Not on filedocumented in this encounter Care Teams Aircraft Technician Relationship Specialty Start Date End Date Abhay Moreno MD [address] [place] [address] PCP - General 07/14/23 Linda Pastrana MD [address] [place] [phone] Consulting Physician Hematology and Oncology 07/14/23 documented as of this encounter
--- OUTSIDE RECORDS SUMMARY | 2025-01-31 11:15 | XMS_ITS | Encounter Summary ---
Author Organization [facility] Address [address] [place] [address] Care Team Providers Care Electric Razor Assembler Name Role Phone Abhay Moreno MD Primary Care Provider [phone] Source Comments In the event this information is protected by the Federal Confidentiality of Alcohol and Drug AbusePatient Records regulations: The Federal rules restrict any use of the information to criminally investigate or prosecute any alcohol or drug abuse patient.[facility] Encounter Details Date Type Department Care Team (Late st Contact Info) Description 12/20/2024 Patient Msg [facility] [address] [place] [address] Kirby Olivares MD [address] [place] [address] MRI Cervical Social History Tobacco Use Types Packs/Day Years Used Date Smoking Tobacco: Every Day Cigarettes Started: 06/14/1999 Area Deprivation Index Answer Date Obi rded National Score (1-100), lower number is lower ri sk 79 12/20/2024 State Score (1-10), lower number is lower risk 7 12/20/2024 Data from: https://www.neighborhoodatlas.medicine.[facility].edu/. Last address used for calculation [address] [...] 9:00 AM EDT Office Visit Cardiology [address] [place] [address] Heart Failure 02/20/2025 9:15 AM EDT Procedure Cardiology [address] [place] [address] Heart Failure 02/20/2025 10:15 AM EDT Office Visit Cardiology [address] [place] [address] Isaac Zambrano MD [address] [place] [address] Heart Failure 02/20/2025 1:00 PM EDT Office Visit Neurology [address] [place] [address] Mina Shelby MD [address] [place] [address] Symptoms of right-sided weakness, neck pain, and paresthesias in the upper extremities - per Dr. Olivares documented as of this encounter Visit Diagnoses Not on filedocumented in this encounter Care Teams Electric Razor Assembler Relationship Specialty Start Date End Date Abhay Moreno MD [address] [place] [address] PCP - General Family Medicine 12/19/24 documented as of this encounter
--- OUTSIDE RECORDS SUMMARY | 2025-01-31 11:15 | XMS_ITS | Encounter Summary ---
Author Organization [facility] Address [address] [place] [address] Care Team Providers Care Clinical Nurse Specialist Name Role Phone Abhay Moreno MD Primary Care Provider [phone] Source Comments In the event this information is protected by the Federal Confidentiality of Alcohol and Drug AbusePatient Records regulations: The Federal rules restrict any use of the information to criminally investigate or prosecute any alcohol or drug abuse patient.[facility] Encounter Details Date Type Department Care Team (Late st Contact Info) Description 01/15/2025 Get Medical Advice Cerebrovascular Center [address] [place], [place] [id number] Kirby Olivares MD [address] [place] [address] MRI/ heart monitor Social History Tobacco Use Types Packs/Day Years Used Date Smoking Tobacco: Every Day Cigarettes Started: 06/14/1999 Area Deprivation Index Answer Date Obi rded National Score (1-100), lower number is lower ri sk 79 12/20/2024 State Score (1-10), lower number is lower risk 7 12/20/2024 Data from: https://www.neighborhoodatlas.medicine.[facility].edu/. Last address used for calculation [address] [facility] 12/20/2024 Comments Unknown Sex and Gender Information Value Date Recorded Sex Assigned at Not on file Legal Sex Female 8:07 AM EDT Gender Identity Not on file Sexual Orientation Not on file documented as of this encounter Miscellaneous Notes * Telephone Encounter - Linda Pastor RN - 01/26/2025 1:49 PM EDT Faxed to [place], see subsequent encounter. * Telephone Encounter - Brandon Batres - 01/16/2025 1:34 PM EDT Received MRI report from [facility], scanned into patient's chart. documented in this encounter Plan of Treatment Upcoming Encounters Date Type Department Care Team (Late st Contact Info) Description 02/20/2025 9:00 AM EDT Office Visit Cardiology [address] [place] [address] Heart Failure 02/20/2025 9:15 AM EDT Procedure Cardiology [address] [place] [address] Heart Failure 02/20/2025 10:15 AM EDT Office Visit Cardiology [address] [place] [address] Isaac Zambrano MD [address] [place] [address] Heart Failure 02/20/2025 1:00 PM EDT Office Visit Neurology [address] [place] [address] Mina Shelby MD [address] [place] [address] Symptoms of right-sided weakness, neck pain, and paresthesias in the upper extremities - per Dr. Olivares documented as of this encounter Visit Diagnoses Not on filedocumented in this encounter Care Teams Clinical Nurse Specialist Relationship Specialty Start Date End Date Abhay Moreno MD [address] [place] [address] PCP - General Family Medicine 12/19/24 documented as of this encounter
--- OUTSIDE RECORDS SUMMARY | 2025-01-31 11:15 | XMS_ITS | Encounter Summary ---
Author Organization [facility] Address [address] [place] [address] Care Team Providers Care Steaming Cabinet Tender Name Role Phone Abhay Moreno MD Primary Care Provider [phone] Linda Pastrana MD Unavailable [phone] Encounter Details Date Type Department Care Team (Late st Contact Info) Description 01/15/2025 Orders Only [facility] Pre-Anesthesia Clinic [address] [place] [phone] Rebecca Nicole RN Social History Tobacco Use Types Packs/Day Years [...] Recorded Patient Health Questionnaire-2 Score 0 10/19/2024 [place] Safety & Environment Answer Date Rec orded [...] on filedocumented in this encounter Care Teams Steaming Cabinet Tender Relationship Specialty Start Date End Date Abhay Moreno MD [address] [facility] [place] [address] PCP - General 07/14/23 Linda aPstrana MD [address] [place] [address] Consulting Physician Hematology and Oncology 07/14/23 documented as of this encounter
--- OUTSIDE RECORDS SUMMARY | 2025-01-31 11:15 | XMS_ITS | Clinical Summary ---
Author Organization [facility] Address [address] [place] [address] Care Team Providers Care Manager Validation Name Role Phone Abhay Moreno MD Primary Care Provider [phone] Linda Pastrana MD Unavailable [phone] Allergies Active Allergy Reactions Criticality Noted Date Comments Adhesive 05/24/2013 Other reaction(s): other Bacitracin Rash Low 10/29/2024 Cephalexin Nausea And Vomiting Low 02/26/2023 Other reaction(s): Unknown Desonide High 09/12/1994 Other reaction(s): Other (See Comments) Unknown Fentanyl Anaphylaxis High 08/29/2024 Ibuprofen High 10/13/2012 Other reaction(s): Other (See Comments) Rectal bleed Latex High 10/13/2012 Other reaction(s): Hives, Other (See Comments) Burning Morphine 02/26/2023 Other reaction(s): Other (See Comments) Labored breathing, chest tightening. Khtdz-Avmnq-Qhxtqiu-Pra moxine Unknown 01/22/2025 Penicillins Anaphylaxis,Rash High 10/13/2012 Other reaction(s): other Prednisone Swelling High 06/05/2016 Medications ALPRAZolam (Xanax) 0.5 mg tablet 0.5 mg if needed in the morning and at bedtime. 4 Active cholecalciferol, vitamin D3, 50 mcg (2,000 [...] Active triamcinolone (Kenalog) 0.1 % cream 1 Application . Active aspirin 81 mg chewable tabletIndications: Acute systolic congestive heart failure (CMS/HCC) Chew 1 tablet (81 mg) in the morning. 90 tablet 5 09/30/19 26 Active diazePAM (Valium) 5 mg tablet Take 5 mg by mouth 1 (one) time. Active metoprolol succinate XL (Toprol-XL) 50 mg 24 hr tabletIndications: Chronic systolic congestive heart failure (CMS/HCC),Nonische cricket cardiomyopathy (CMS/HCC) Take 1 tablet (50 mg) by mouth in the morning. Do not crush or chew. 90 tablet 5 01/23/20 26 Active spironolactone (Aldactone) 25 mg tabletIndications: Chronic systolic congestive heart failure (CMS/HCC),Nonische cricket cardiomyopathy (CMS/HCC) Take 0.5 tablets (12.5 mg) by mouth in the morning. 45 tablet 5 01/23/20 26 Active dapagliflozin propanediol (Farxiga) 10 mgIndications:Metal Filer garth systolic congestive heart failure (CMS/HCC),Nonische cricket cardiomyopathy (CMS/HCC) Take 1 tablet (10 mg) by mouth in the morning. 30 tablet 5 01/23/20 26 Active sacubitril-valsart an (Entresto) 24-26 mg tabletIndications: Chronic systolic congestive heart failure (CMS/HCC),Nonische cricket cardiomyopathy (CMS/HCC) Take 1 tablet by mouth two times daily. 60 tablet 5 01/23/20 26 Active losartan (Cozaar) 50 mg tabletIndications: Acute systolic congestive heart failure (CMS/HCC) Take 1 tablet (50 mg) by mouth in the morning. 90 tablet 3 5 01/23/20 25 Discontin ued(Ineff ective) metoprolol succinate XL (Toprol-XL) 50 mg 24 hr tabletIndications: Chronic systolic congestive heart failure (CMS/HCC) Take 1 tablet (50 mg) by mouth in the morning. Do not crush or chew. 90 tablet 3 5 01/23/20 25 Discontin ued(Reord er) spironolactone (Aldactone) 25 mg tabletIndications: Chronic systolic congestive heart failure (CMS/HCC) Take 0.5 tablets (12.5 mg) by mouth in the morning. 45 tablet 3 5 01/23/20 25 Discontin ued(Reord er) sacubitril-valsart an (Entresto) 24-26 mg tabletIndications: Chronic systolic congestive heart failure (CMS/HCC),Nonische cricket cardiomyopathy (CMS/HCC) Take 1 tablet by mouth two times daily. 180 tablet 3 5 01/23/20 25 Discontin ued(Reord er) dapagliflozin propanediol (Farxiga) 10 mgIndications:Metal Filer garth systolic congestive heart failure (CMS/HCC),Nonische cricket cardiomyopathy (CMS/HCC) Take 1 tablet (10 mg) by mouth in the morning. 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 09/30/2023 Inguinal lymphadenopathy 09/30/2023 Acute diarrhea 09/30/2023 09/30/2023 Gastritis 09/30/2023 09/30/2023 Degeneration of cervical intervertebral disc 09/30/2023 Fibrocystic breast changes 09/30/202309/29 Peripheral vertigo 09/30/2023 09/30/2023 Palpitations 09/30/2023 09/30/2023 Pain in left hand 09/30/2023 09/30/2023 Pain in right hand 09/30/2023 09/30/2023 Other specified conditions a ssociated with female genital organs and menstrual cycle 09/30/2023 09/30/2023 Left upper quadrant pain 09/30/2023 Jaw pain 09/30/2023 09/30/2023 Irregular intermenstrual bleeding [...] Encounters Date Type Department Care Team Description 01/26/2025 12:10 AM EDT - 01/26/2025 11:59 PM EDT Hospital Encounter [facility] Radiology External Films [address] [place] [address] Discharge Disposition: Home or Self Care () 01/26/2025 12:05 AM EDT - 01/26/2025 12:09 AM EDT Hospital Encounter [facility] Radiology External Films [address] [place] [address] Discharge Disposition: Home or Self Care () 01/26/2025 - 01/26/2025 12:04 AM EDT Hospital Encounter [facility] Radiology External Films [address] [facility] [place] [address] Discharge Disposition: Home or Self Care () 01/25/2025 1:30 PM EDT Follow-Up [facility] Heart and Vascular Cardiothoracic Surgery Center [address] [facility] [place] [address] Robi Rouse CNP Pericardial cyst (Primary Dx); Acute systolic congestive heart failure (CMS/HCC) 01/22/2025 9:45 AM EDT Office Visit [address] [address] Chintan Ragland MD Chronic systolic congestive heart failure (CMS/HCC) (Primary Dx); Pericardial cyst; Nonischemic cardiomyopathy (CMS/HCC) 01/22/2025 Refill [facility] [address] [place] [address] Jeanette Black MA Chronic systolic congestive heart failure (CMS/HCC); Nonischemic cardiomyopathy (CMS/HCC) 01/16/2025 Telephone [facility] [place] [address] [facility] [place] [address] Lashay Parikh MA ECHO scheduling 01/15/2025 Orders Only [facility] Pre-Anesthesia Clinic [address] [place] [address] Rebecca Nicole, TOBI 12/26/2024 Telephone [facility] [place] [address] [facility] [place] [address] Lashay Parikh MA MRI 12/20/2024 Orders Only [facility] [address] [place] [facility] [place] [phone] Yaa Quintanilla MA Chronic systolic heart failure (CMS/HCC) (Primary Dx) 12/14/2024 Telephone [facility] [address] [place] [address] Yaa Quintanilla MA 12/05/2024 Telephone [facility] [place] [address] [facility] [place] [address] Abbey Carney, TOBI follow up 11/29/2024 Orders Only [facility] [place] [address] [facility] [place] [address] Abbey Carney, TOBI 11/29/2024 - 11/29/2024 11:59 PM EDT Hospital Encounter [facility] Radiology External Films [address] [place] [address] Discharge Disposition: Home or Self Care (01) 11/27/2024 Telephone [facility] [place] [address] [facility] [place] [address] Abbey Carney, RN Follow up 11/23/2024 Telephone [facility] [place] [address] [facility] [place] [phone] Lashay Parikh MA Other 11/21/2024 Telephone [facility] [place] [address] [place] [address] Abbey Carney, cad developer Update 11/20/2024 Telephone [facility] Vascular Cardiothoracic Surgery [place] [address] [place] [address] Abbey Carney, TOBI Follow Up 11/20/2024 Orders Only [facility] Pre-Anesthesia Clinic [address] [place] [address] Cyndi Bedoya RN 11/20/2024 Travel 11/17/2024 Abstract [facility] [place] [address] [place] [address] Abbey Carney, TOBI 11/17/2024 Telephone [facility] Vascular Cardiothoracic Surgery [place] [address] [place] [address] Abbey Carney, TOBI Pre-op Instructions 11/16/2024 3:00 PM EDT Consult [facility] Vascular Cardiothoracic Surgery [place] [address] [place] [address] Alexa Macias, SAMINA Pericardial cyst (Primary Dx); Acute systolic congestive heart failure (CMS/HCC); Syncope, unspecified syncope type; Crohn's disease with complication, unspecified gastrointestinal tract location (CMS/HCC) 11/13/2024 Orders Only [facility] Vascular Cardiothoracic Surgery [place] [address] [place] [address] Abbey Carney, TOBI Pre-op testing; Hypothyroidism, unspecified type; Pericardial cyst; Acute systolic congestive heart failure (CMS/HCC); Abnormal finding of blood chemistry, unspecified 2024 Orders Only [facility] Vascular Cardiothoracic Surgery [place] [address] [place] [address] Abbey Carney, TOBI Pericardial cyst 11/09/2024 Telephone [facility] [address] [place] [address] Yaa Quintanilla MA 11/08/2024 8:41 AM EDT - 11/08/2024 11:59 PM EDT Hospital Encounter [facility] Pulmonary Function Testing [address] [facility] 3rd [place] [address] Pre-op testing Discharge Disposition: Home or Self Care () 11/03/2024 Orders Only [facility] Heart and Vascular Cardiothoracic Surgery Center [address] [place] [address] Abbey Carney RN Pre-op testing from Last 3 Months Immunizations Immunization Administration Dates Next Due DTaP, Unspecified 01/10/1979 MMR 06/08/1981 Polio, Unspecified 01/10/1979 Family History Medical History Relation Name Comments Brain Aneurysm Maternal Grandfather Colon cancer Maternal Grandfather Heart attack Maternal Grandfather Diabetes Mother Hypertension Mother Mitral valve prolapse Mother ckd Mother Relation Name Status Comments Father Alive Maternal Grandfather Mother Paternal Grandfather Social History [...] Recorded Patient Health Questionnaire-2 Score 4 01/25/2025 MD Safety & Environment Answer Date Rec orded [...] F) 01/25/2025 1:31 PM EDT Respiratory Rate 18 10/20/2024 2:15 PM EDT Oxygen Saturation 100% 01/25/2025 1:31 PM EDT Inhaled Oxygen Concentration - - Weight 58.5 kg (129 lb) 01/25/2025 1:31 PM EDT Height 167.6 cm (5' 6 ) 01/25/2025 1:31 PM EDT Body Mass Index 20.82 01/25/2025 1:31 PM EDT Plan of Treatment Health Maintenance Due [...] 04/14, 03/26/2023, Additional history exists Depression Screening 01/25/2026 01/25/2025 Cervical Cancer Screening 02/26/2026 Pap Smear 02/26/2026 [...] OUTSIDE FILMS Routine 01/26/2025 12:[address] TRANSFER OF OUTSIDE FILMS Routine 01/26/2025 12:05 AM EDT MR TRANSFER OF OUTSIDE FILMS Routine 01/26/2025 12:00 AM EDT MR TRANSFER OF OUTSIDE FILMS Routine 11/29/2024 12:00 AM EDT HC DIFFUSING CAPACITY - CARBON MONOXIDE DIFFUSING CAPACITY Routine 11/08/2024 3:31 PM EDT Pre-op testing BI MAMMOGRAM SCREENING TOMOSYNTHESIS BILATERAL Routine 01/04/2015 from Last 3 Months or Most Recently Relevant to Health Maintenance Results * XR transfer of outside films (01/26/2025 12:10 AM EDT) Narrative IMAGING - 01/26/2025 11:29 AM EDT This order has been auto-finalized and does not contain a result. Seng Rosado MD IMG XR PROCEDURES Final Result Performing Organization Address [facility] de Phone Number IMAGING * CT transfer of outside films (01/26/2025 12:05 AM EDT) Narrative IMAGING - 01/26/2025 11:29 AM EDT This order has been auto-finalized and does not contain a result. Seng Rosado MD IMG CT PROCEDURES Final Result Performing Organization Address [facility] de Phone Number IMAGING * MR transfer of outside films (01/26/2025 12:00 AM EDT) Only the most recent of2 resultswithin the time period is included. Narrative IMAGING - 01/26/2025 11:18 AM EDT This order has been auto-finalized and does not contain a result. Result [facility] Seng Rosado MD IMG MRI PROCEDURES Final Resul t Performing Organization Address [facility] de Phone Number IMAGING * Pulmonary function testing (11/08/2024 3:31 [...] Rosado MD PFT ORDERABLES Final Result * Bilateral screening mammogram with tomosynthesis (01/04/2015) Anatomical Region Laterality Modality Breast Bilateral Mammography Historical Provider IMShakir BI PROCEDURES Final R esult from Last 3 Months or Most Recently Relevant to Health Maintenance Insurance [facility] [employer] Care Teams Manager Validation Relationship Specialty Start Date End Date Abhay Moreno MD [address] [facility] [address] PCP - General 07/14/23 Linda Pastrana MD [address] [place] [address] Consulting Physician Hematology and Oncology 07/14/23
--- OUTSIDE RECORDS SUMMARY | 2025-01-31 11:26 | XMS_ITS | CCD ---
Author Organization [facility]iniSyva Care Team Providers Care Compliance Clerk Name Role Phone John Price MD Primary Care Provider [phone] John Price Primary Care Physician Gregg NESS Attending Unavailable John Griffin Referring Unavailabl e Gregg NESS Attending Unavailable HOY ., DR LOPEZ Admitting Unavailable HOY ., DR LOPEZ Attending Unavailable HOY ., DR LOPEZ Primary Care Unavailable HOY ., DR LOPEZ Consulting Unavailable SCOTLAND, DR RONNIE Fierro Consulting Unavailable HOY ., DR LOPEZ Admitting Unavailable HOY ., DR LOPEZ Attending Unavailable HOY ., DR LOPEZ Primary Care Unavailable HOY ., DR LOPEZ Consulting Unavailable RigobertoeberLaura Consulting Unavailable DONALD SHELDON Admitting Unavailable SHELDON BENNETT Attending Unavailable HOY ., DR LOPEZ Primary Care Unavailable SHELDON BENNETT Consulting Unavailable NILL ., DR ESCOBEDO Admitting Unavailable NILL ., DR ESCOBEDO Attending Unavailable HOY ., DR LOPEZ Primary Care Unavailable NILL ., DR ESCOBEDO Consulting Unavailable FROILANSEMAJ Consulting Unavailable MARLONMERRILL Consulting Unava ilable HOY ., DR LOPEZ [...] Unavailable John Price MD Primary Care Provider [phone] CNM, Quynh Unavailable [phone] JEANETTE CALABRESE Referring Unavailable JEANETTE CALABRESE Attending Unavailable HOY, JOHN M Primary Care Unavailable John Price MD Primary Care Provider [phone] [facility] Sergo MUÑOZ Attending Provider [facility] Sergo MUÑOZ Attending Provider John Price MD Primary Care Provider [phone] Jhon Price [facility] Attending Unavailable Hoy, John M Attending Unavailable Hoy, John M Admitting Unavailable Hoy, John M Primary Care Unavailable Unavailable Primary Care Provider UnavailJohn Hill MD Primary Care Provider [phone] JOHNATHAN RAMIREZ Attending Unavailable HOY, JOHN M Primary Care Unavailable MINA LINDO Attending Unavailable HOY, JOHN M Primary Care Unavailable HOY, JOHN M Primary Care Unavailable SARAH RAGLAND Referring Unavailable HOY, JOHN M Primary Care Unavailable SARAH RAGLAND Referring Unavailable HOY, JOHN M Primary Care Unavailable DIAMOND SARAH Referring Unavailable HOY, JOHN M Primary Care Unavailable SARAH RAGLAND Referring Unavailable HOY, JOHN M Primary Care Unavailable SARAH RAGLAND Referring Unavailable BOLA NAM Attending Unavailable HOY, JOHN M Primary Care Unavailable HOY, JOHN M Primary Care Unavailable DIAMOND SARAH Referring Unavailable HOY, JOHN M Primary Care Unavailable DIAMOND SARAH Referring Unavailable HOY, JOHN M Primary Care Unavailable DIAMOND SARAH Referring Unavailable HOY, JOHN M Primary Care Unavailable MOROSY SARAH Referring Unavailable HOY, JOHN M Primary Care Unavailable MOROSY SARAH Referring Unavailable HOY, JOHN M Primary Care Unavailable DIAMOND SARAH Referring Unavailable HOY, JOHN M Primary Care Unavailable IKER PACHECO Referring Unavailable HOY, JOHN M Referring Unavailable HOY, JOHN M Primary Care Unavailable HOY, JOHN M Primary Care Unavailable SARAH RAGLAND Referring Unavailable HOY, JOHN M Primary Care Unavailable DIAMOND SARAH Referring Unavailable HOY, JOHN M Primary Care Unavailable MOROSY SARAH Referring Unavailable IKER PACHECO Attending Unavailable JOHN PRICE Primary Care Unavailable JOHN PRICE M Primary Care Unavailable MOUKARBEL, SARAH Referring Unavailable HOAyaan JOHN M Primary Care Unavailable MOUKARBEL, SARAH Referring Unavailable MOUKARBEL, SARAH Attending Unavailable MOUKARBEL, SARAH Referring Unavailable DERISO, SENG Attending Unavailable MOUKARBEL, SARAH Referring Unavailable NOLAN, Attending Unavailable LAWRENCE PROCTOR Attending Unavailabl e MOUKARBEL, SARAH Attending Unavailable MOUKARBEL, SARAH Attending Unavailable DERISO, SENG Referring Unavailable DERISO, SENG Referring Unavailable MOUKARBEL, SARAH Admitting Unavailable MOUKARBEL, SARAH Attending Unavailable DERISO, SENG Referring Unavailable DERISO, SENG Referring Unavailable DERISO, SENG Referring Unavailable DERISO, SENG Referring Unavailable DERISO, SENG Referring Unavailable DERISO, SENG Referring Unavailable Allergies Allergy Classification Reported Allergen(s) Allergy Type Date of Onset Reaction(s) Facility Adhesive Tape (3 sources) Adhesive Tape Substance Allergy 3 [facility] Latex (3 sources) Latex Substance Allergy 3 [facility] NSAIDs (3 sources) Ibuprofen Drug Allergy 3 [facility] Penicillins (antibiotic) (3 sources) Penicillins Drug Allergy 3 [facility] (20 sources) Adhesive Tape; Translations: [Adhesive tape] Propensity to adverse reactions to drug 5 skin irritation [facility] (20 sources) Desonide; Translations: [DESONIDE] Drug Allergy 5 Other (See Comments), Other: See Comments [facility] (20 sources) Ibuprofen; Translations: [IBUPROFEN] Drug Allergy 3 Other (See Comments), Other: See Comments [facility] (20 sources) Latex; Translations: [Latex] Propensity to adverse reactions to drug 3 Other (See Comments), Weal (disorder), Other: See Comments [facility] Work Phone: (20 sources) Penicillins; Translations: [Penicillins] Propensity to adverse reactions to drug 5 Rash, Anaphylaxis [facility] Work Phone: (20 sources) predniSONE; Translations: [PREDNISONE] Drug Allergy 6 [facility] Work Phone: (20 sources) Cephalexin; Translations: [cephalexin] Drug Allergy 3 Unknown (qualifier value), Nausea And Vomiting, Vomiting [facility] (2 sources) Penicillin; Translations: [penicillin] Drug Allergy Anaphylaxis (disorder) [facility] (1 source) Cephalexin Drug Allergy [facility] (2 sources) Ibuprofen Drug Allergy 5 [facility] (2 sources) Latex Drug allergy (disorder) 5 [facility] (2 sources) predniSONE Drug Allergy 6 [facility] (20 sources) Morphine; Translations: [MORPHINE] Drug Allergy 3 Other (See Comments), Other: See Comments [facility] (20 sources) fentaNYL; Translations: [fentanyl] Drug Allergy 5 Anaphylaxis [facility] (1 source) Ibuprofen Drug Allergy 5 [facility] (1 source) Latex Drug allergy (disorder) 5 [facility] (20 sources) Bacitracin; Translations: [BACITRACIN] Drug Allergy 5 Rash [facility] (9 sources) Adhesive agent; Translations: [ADHESIVE] Drug Intolerance 3 Other: See Comments [facility] (1 source) [id number]-[id number] YMYX-PRAMOXINE; Translations: [AFNFQ-YFVHF-ME LYMYX-PRAMOXINE ] Propensity to adverse reactions to drug (disorder) 5 [facility] Repository Medications Current Medications Medication Drug Class(es) Dates Sig (Normalized) Sig (Original) ALPRAZolam 0.25 mg oral tablet (20 sources) Benzodiazepine Start: 11-14-2024 take 2 tablets by mouth three times daily as needed ALPRAZolam (XANAX) 0.25 MG tablet Take 2 tablets by mouth 3 times daily as needed. 11/14/2024 Active Start: 11-14-2024 take 1 tablet by prince th every eight hours as needed ALPRAZolam (XANAX) 0.25 mg tablet Take 0.25 mg by mouth three times a day as needed. 11/14/2024 Active Start: 11-14-2024 take 1 tablet by prince th twice daily ALPRAZolam (XANAX) 0.25 MG tablet 1 tablet Orally Twice a day for 14 days F41.9 11/14/2024 Active aspirin 81 mg chewable tablet (20 sources) Platelet Aggregation Inhibitor, Nonsteroidal Anti-inflammatory Drug Start: 10-29-2024 take 1 dose by mouth once 324 mg, Oral, ONCE, 1 dose, On 10/29/24 at 1345 Start: 09-29-2024 End: 09-29-2025 take 1 tablet by mouth once daily aspirin 81 MG chewable tablet Take 1 tablet by mouth daily 09/29/2024 09/29/2025 Active cholecalciferol 0.05 mg oral capsule (6 sources) Vitamin D Start: 08-10-2023 take 1 capsule by mouth once daily in the morning Cholecalciferol, Vitamin D3, 50 mcg (2,000 unit) cap Take 1 capsule by mouth every morning. 08/10/2023 Active 1 ml ketorolac tromethamine 15 mg/ml cartridge (19 sources) Nonsteroidal Anti-inflammatory Drug, Cyclooxygenase Inhibitor Start: 11-25-2024 15 mg, IntraVENous, ONCE, 1 dose, On 11/25/24 at 1530, Do not administer for more than 5 days. Start: 11-25-2024 take 1 tablet by prince th every six hours as needed for pain ketorolac (TORADOL) 10 MG tablet Take 1 tablet by mouth every 6 hours as needed for Pain 10 tablet 11/25/2024 Active Start: 09-03-2021 End: 09-04-2021 ketorolac (TORADOL) injectio n 30 mg losartan potassium 50 mg oral tablet (20 sources) Angiotensin 2 Receptor Selvin Start: 09-29-2024 End: 09-29-2025 take 1 tablet by mouth once daily losartan (COZAAR) 50 MG tablet Take 1 tablet by mouth daily 09/29/2024 09/29/2025 Active meclizine hydrochloride 25 mg oral tablet (19 sources) Antiemetic take 1 tablet by mouth in the morning meclizine (ANTIVERT) 25 MG tablet Take 1 tablet by mouth in the morning and 1 tablet in the evening. Active take 1 tablet by prince th every twelve hours meclizine 25 mg chewable tablet(s) Take 25 mg by mouth every 12 hours. Active 24 hr metoprolol succinate 50 mg extended release oral tablet (20 sources) beta-Adrenergic Selvin Start: 10-30-2024 End: 10-30-2025 take 1 tablet by mouth once daily metoprolol succinate ER (TOPROL XL) 50 mg 24 hr tablet Take 50 mg by mouth once daily. 10/30/2024 10/30/2025 Active Start: 09-29-2024 End: 09-29-2025 take 2 tablets [...] Other (headache) 10 tablet 0 01/24/2021 Active predniSONE 20 mg oral tablet (6 sources) take 1 tablet by mouth once daily predniSONE (DELTASONE) 20 mg tablet Take 20 mg by mouth once daily. Active spironolactone 25 mg oral tablet (20 sources) Aldosterone Antagonist Start: 10-31-19 End: 10-31-19 take 2 tablets by mouth at bedtime spironolactone (ALDACTONE) 25 MG tablet Take 2 tablets by mouth at bedtime 10/30/2024 10/30/2025 Active Start: 10-30-2024 End: 10-30-2025 take 0.5 tablet by mouth once daily spironolactone (ALDACTONE) 25 MG tablet Take 0.5 tablets by mouth daily 10/30/2024 10/30/2025 Active tamsulosin hydrochloride 0.4 mg oral capsule (19 sources) alpha-Adrenergic Selvin take 1 capsule by mouth once daily tamsulosin (FLOMAX) 0.4 MG capsule Take 1 capsule by mouth daily Active tiZANidine 4 mg oral tablet (6 sources) Central alpha-2 Adrenergic Agonist Start: 024 take 1 tablet by mouth every eight hours as needed tiZANidine (ZANAFLEX) 4 mg tablet Take 4 mg by mouth every 8 hours as needed. 08/06/2023 Active triamcinolone acetonide 1 mg/ml topical cream (6 sources) Corticosteroid triamcinolone acetonide (KENALOG) 0.1 % cream Apply 1 application to affected area two times a day. Active valACYclovir 1000 mg oral tablet (19 sources) Herpesvirus Nucleoside Analog DNA Polymerase Inhibitor, Herpes Simplex Virus Nucleoside Analog DNA Polymerase Inhibitor, Herpes Zoster Virus Nucleoside Analog DNA Polymerase Inhibitor take 1 tablet by mouth once daily valACYclovir (VALTREX) 1 g tablet Take 1 tablet by mouth daily Active valACYclovir (VA LTREX) 1 gram tablet Take 1,000 mg by mouth once daily. Active Completed/Discontinued Medications Medication Drug Class(es) Dates [...] mL/hr, Administer over 120 Minutes, ONCE, On Wed11/25/24 at 1415, For 1 dose Start: 11-15-2024 [...] Dehydration; Translations: [Dehydration] Episodic Nonmalignant breast conditions (20 sources) Fibrocystic disease of breast; Translations: [Diffuse cystic mastopathy of unspecified breast] Onset: 3 01-16-2022 Chronic Other bone disease and musculoskeletal deformities (1 source) Costal chondritis; Translations: [Chondrocostal junction syndrome [Tietze]] 11-25-2024 Episodic Other bone disease and musculoskeletal deformities (1 source) Chondrocostal junction syndrome [Tietze]; Translations: [Chondrocostal junction syndrome (tietze)] Onset: 5 Episodic Other connective tissue disease (1 source) [...] gastritis 01-16-2022 Episodic Other lower respiratory disease (1 source) Dyspnea, unspecified; Translations: [Dyspnea, unspecified] Onset: 5 Episodic Other nutritional; endocrine; and [...] other specified body structures] Onset: 5 Chronic Robina-; endo-; and myocarditis; cardiomyopathy (except that [...] Spondylosis; intervertebral disc disorders; other back problems (20 sources) Cervical disc disorder; Translations: [Cervical disc disorder, unspecified, unspecified cervical region] Onset: 3 01-16-2022 Chronic Substance-related disorders (1 source) Nicotine dependence, cigarettes, uncomplicated; Translations: [NICOTINE DEPEND CIGARETTES UNCOMP] Onset: 2 Chronic Superficial injury; contusion (2 sources) Contusion of head; Translations: [Contusion of unspecified part of head, initial encounter] Episodic Syncope (7 sources) Syncope and collapse; Translations: [Syncope and [...] hematuria; Translations: [ACUTE CYSTITIS WITH HEMATURIA] Onset: Episodic Past or Other Problems Problem Classification Problem Date Documented Da te Episodic/Chronic Abdominal hernia (20 sources) Left inguinal hernia ; Translations: [Unilateral inguinal hernia, without obstruction or gangrene, not specified as recurrent] Onset: 04-15-2023 01-16-2022 Episodic Benign neoplasm of uterus (20 sources) Uterine leiomyoma; Translations: [Leiomyoma of uterus, unspecified] Onset: 04-15-2023 01-16-2022 Episodic Complications of surgical procedures or medical care (20 sources) Postgastric surgery syndrome; Translations: [Postgastric surgery syndromes] Onset: 04-15-2023 01-16-2022 Episodic Gastritis and duodenitis (20 sources) Gastritis, unspecified, without bleeding; Translations: [Gastritis] Onset: 02-20-2022 04-15-2023 Episodic Nausea and vomiting (20 sources) Nausea and vomiting; Translations: [Nausea with vomiting, unspecified] Onset: 02-20-2022 Episodic Nonspecific chest pain (2 sources) Chest pain; Translations: [Chest pain, unspecified] Onset: 10-29-2024 10-29-2024 Episodic Other connective tissue disease (20 sources) Impingement syndrome of shoulder region; Translations: [Impingement syndrome of unspecified shoulder] Onset: 04-15-2023 01-16-2022 Episodic Other gastrointestinal disorders (20 sources) Hemorrhagic diarrhea ; Translations: [Diarrhea, unspecified] Onset: 04-15-2023 01-21-2022 Episodic Other gastrointestinal disorders (1 source) Change in bowel habit; Translations: [CHANGE IN BOWEL HABIT] Onset: 02-20-2022 Episodic Other gastrointestinal disorders (1 source) Diarrhea, unspecified; Translations: [DIARRHEA UNSPECIFIED] Onset: 02-20-2022 Episodic Other gastrointestinal disorders (20 sources) Altered bowel function; Translations: [Change in bowel habit] Onset: 02-20-2022 04-15-2023 Episodic Other lower respiratory disease (4 sources) Dyspnea; Translations: [Shortness of breath] Onset: 10-20-2024 Episodic Other lower respiratory disease (1 source) Shortness of breath; Translations: [Shortness of breath] Onset: 10-11-2024 Episodic Other screening for suspected conditions (not mental disorders or infectious disease) (5 sources) Abnormal findings on diagnostic imaging of breast; Translations: [Other abnormal and inconclusive findings on diagnostic imaging of breast] Onset: 05-04-2023 05-04-2023 Episodic Residual codes; unclassified (1 source) Acquired absence of other specified parts of digestive tract; Translations: [ACQ ABSENCE OTH PART DIGESTV TRACT] Onset: 02-20-2022 Episodic Residual codes; unclassified (20 sources) Body mass index 20-24 - normal; Translations: [Body mass index (BMI) of 20 to 24] Onset: 04-15-2023 04-15-2023 Episodic Screening and history of mental health and substance abuse codes (20 sources) Tobacco use and exposure - finding; Translations: [Personal history of nicotine dependence] Onset: 04-15-2023 04-15-2023 Episodic Sexually transmitted infections (not HIV or hepatitis) (20 sources) Gonococcal infection, unspecified; Translations: [Gonorrhea] Onset: 03-02-2023 03-02-2023 Episodic Spondylosis; intervertebral disc disorders; other back problems (20 sources) Low back pain; Translations: [Low back pain] Onset: 04-15-2023 01-16-2022 Episodic Results Test Name Value Interpretation Reference Range Facility 36 01-25-2025 36 Called natasha to andreia medina if patient is scheduled for her ECHO they stated that they did not have her scheduled yet. They do her an order and will schedule her once the pre cert is completed. She would need the ECHO in about a month and this told to radiology she voiced her understanding. Normal [facility] Follow-Upon 01-25-2025 Follow-Up [id number] Marizol Segovia 1980 F Date Provider Department Center 01/25/2025 [id number] PROCTOR JHVCTS RI Heart[facility]AS Family History Problem Relation Age of Onset Other Mother Diabetes Mother Mitral valve prolapse Mother Hypertension Mother Colon cancer Maternal Grandfather Heart attack Maternal Grandfather Brain Aneurysm Maternal Grandfather Family Status - Relation Status Age at Mother Father Alive Maternal Grandfather Paternal Grandfather Level of Service:30106 [place] OFFICE/OUTPATIENT ESTABLISHED LOW [facility] 20 MIN Reason for Visit and Comments: Follow-up [305441] - Cyst, patient states that she is having back and sternum pain, stereum pain has got worse. [facility] Office Visiton 01-22-2025 Follow-up visit [id number] Marizol Segovia 1980 F Date Provider Department Center 01/22/2025 Edward-DEYVIJESSESARAH MCCRAY SUPRIYA Bloom Family History Problem Relation Age of Onset Other Mother Diabetes Mother Mitral valve prolapse Mother Hypertension Mother Colon cancer Maternal Grandfather Heart attack Maternal Grandfather Brain Aneurysm Maternal Grandfather Family Status - Relation Status Age at Mother Father Alive Maternal Grandfather Paternal Grandfather Level of Service:64061 [place] OFFICE/OUTPATIENT ESTABLISHED MOD MDM 30 MIN [facility] 36on 01-16-2025 36 Call placed to kathleen jorgensen to see how she was doing and offer appt. She stated that she is doing fine. She stated that she is having consist pain in left back shoulder and by her sternum. She rated pain as a 7. No draining ore bleeding. She is doing cardiotherapy. She is scheduled to see us 01/25 @130 [facility] Telephoneon 01-16-2025 Telephone [id number] Marizol Segovia 1980 F Date Provider Department Center 01/16/2025 [facility] History Problem Relation Age of Onset Other Mother Diabetes Mother Mitral valve prolapse Mother Hypertension Mother Colon cancer Maternal Grandfather Heart attack Maternal Grandfather Brain Aneurysm Maternal Grandfather Family Status - Relation Status Age at Mother Father Alive Maternal Grandfather Paternal Grandfather Reason for Visit and Comments: ECHO scheduling [Other] [facility] Orders Onlyon 01-15-2025 Orders Only [id number] Marizol Segovia 1980 F Date Provider Department Center 01/15/2025 HOLLI CABALLERO [facility] Family History Problem Relation Age of Onset Other Mother Diabetes Mother Mitral valve prolapse Mother Hypertension Mother Colon cancer Maternal Grandfather Heart attack Maternal Grandfather Brain Aneurysm Maternal Grandfather Family Status - Relation Status Age at Mother Maternal Grandfather Paternal Grandfather [facility] 36on 12-26-2024 36 Call placed to edgar cameron they stated that they are still getting patient pre cert completed once it is done they will schedule appt with patient. [facility] 36 Will you call Xenia nevarez and see if patients cervical spine MRI has been scheduled/completed. [facility] Thalia 12-21-2024 CNPN Telephone (NECVS8) NAHUM SEGOVIA ([id number]) 1980 F Date Time Provider Department 12/21/24 JOHNATHAN RAMIREZ NECVS8 During your visit today, we recorded the following information about you: Esperanza Booker 12/21/2024 5:01 PM Signed Faxed cardiac report heart monitor to [facility] and current office notes of 12-20-24 ECG is not completed as of today. Brandon Batres 12/25/2024 1:47 PM Signed CV PHONE Name of caller : Ann Marie Relationship to patient : [facility] If not self Will need patient permission to release results or disclose health information with called documented in . Patient identified by Name and Date of . ( Nahum Segovia, 1980). Yes Number to return call [phone] ext [phone] Reason for Call: Patient Question/Update: An nMarie calling to inform that they are in need of the order for Halter monitor to be put on. Does not do mail out to patient or use ZIO. Thank you calling [facility] [place]. You will receive a return call within 48 hours ( or 2 business days if close to the weekend). If you feel that this is an urgent issue and needs immediate attention, it is recommended that you contact your primary care provider office or proceed to your nearest Urgent Care Center of Emergency Room ED for evaluation/treatment. Linda Pastor RN 12/25/2024 2:06 PM Signed Call to Ann Marie at [facility], verified we mailed Zio Patch to pt, holter monitor order not needed. Linda Pastor RN December 25, 2024 2:06 PM Allergies As of Date: 12/21/2024 Noted Allergy Reaction DESONIDE 09/12/1994 14 - Other: See Comments Comments: Other reaction(s): Other (See Comments) Unknown Unknown FENTANYL 08/29/2024 10 - Anaphylaxis IBUPROFEN 10/13/2012 14 - Other: See Comments Comments: Other reaction(s): Other (See Comments) Rectal bleed Rectal bleed LATEX 10/13/2012 14 - Other: See Comments Comments: Other reaction(s): Hives, Other (See Comments) Burning Burning PENICILLINS 10/13/2012 10 - Anaphylaxis 2 - Rash Comments: Other reaction(s): other PREDNISONE 06/05/2016 7 - Swelling ADHESIVE 05/24/2013 14 - Other: See Comments Comments: Other reaction(s): other MORPHINE 02/26/2023 14 - Other: See Comments Comments: Other reaction(s): Other (See Comments) Labored breathing, chest tightening. Labored breathing, chest tightening. BACITRACIN 10/29/2024 2 - Rash CEPHALEXIN 02/26/2023 11 - Vomiting Comments: Other reaction(s): Unknown Date Reviewed: 12/20/2024 Reviewed by: Caroline Sumemrs MA - Fully Assessed Reason for Visit: Orders [681] Prescriptions as of 12/25/2024 - ALPRAZolam (XANAX) 0.25 mg tablet Take 0.25 mg by mouth three times a day as needed. - aspirin 81 mg chewable tablet Take 81 mg by mouth once daily. - Cholecalciferol, Vitamin D3, 50 mcg (2,000 unit) cap Take 1 capsule by mouth every morning. - losartan (COZAAR) 50 mg tablet Take 50 mg by mouth once daily. - meclizine 25 mg chewable tablet(s) Take 25 mg by mouth every 12 hours. - metoprolol succinate ER (TOPROL XL) 50 mg 24 hr tablet Take 50 mg by mouth once daily. - predniSONE (DELTASONE) 20 mg tablet Take 20 mg by mouth once daily. - spironolactone (ALDACTONE) 25 mg tablet Take 50 mg by mouth daily at bedtime. - tamsulosin (FLOMAX) 0.4 mg Take 0.4 mg by mouth once daily. - tiZANidine (ZANAFLEX) 4 mg tablet Take 4 mg by mouth every 8 hours as needed. - valACYclovir (VALTREX) 1 gram tablet Take 1,000 mg by mouth once daily. - triamcinolone acetonide (KENALOG) 0.1 % cream Apply 1 application to affected area two times a day. Problem List As Of Date: 12/21/2024 (None) Encounter Status:Closed by ESPERANZA BOOKER on 12/21/24 [facility] CNOVon 12-20-2024 CNOV Office Visit (NECVS8 ) NAHUM SEGOVIA ([id number]) 1980 F Date Time Provider Department 12/20/24 9:00 AM JOHNATHAN RAMIREZ NECVS8 During your visit today, we recorded the following information about you: Temperature Pulse Respiration Blood pressure 98 degrees 70/minute 13/minute 125/62 Weight Height 58.1 kg 1.676 m Johnathan Ramirez MD 12/20/2024 12:07 PM Signed [facility] Initial Visit PCP: John Price [address] [place] [address] John Price for an opinion regarding possible TIA. My final recommendations will be communicated back to the requesting physician by way of shared Medical record or letter to requesting physician via [place] mail. [facility] Reason for Visit: - neurological symptoms Date of Last Event: 11/17/2024 Antiplatelets/Anticoagu lants: Aspirin Residual Deficits: Motor weakness - ataxia Current PT/OT/ST: None Current Living Situation: Home with spouse Current use of a mobility aid for walking/getting around: Rollator Do you have any planned upcoming surgeries or dental procedures? Yes VATS, Date end of December 2024 Nahum Segovia is a 44-year-old female with a history of asthma, Crohn's disease, dumping syndrome, heart failure, pericardial cyst, and rheumatoid arthritis, presenting for evaluation of possible TIA. Nahum was referred from [facility] for evaluation of a possible TIA. She reports a history of balance issues, lightheadedness, and dizziness, described as both presyncope and room spinning. She also experiences numbness and tingling in her hands and feet, which have been ongoing for some time (approximately 6 months or more). She does not endorse dysarthria or difficulty swallowing. Nahum presented to the ER at [facility] Emergency Department on 11/15/2024 after a syncopal episode at home, during which she experienced chest pain and tinnitus. She is unsure how long she was unconscious. She reports that during the episode, she experienced uncontrollable urination. She does not endorse bowel incontinence. Nahum presented to the ER at [facility] on 11/17/2024 after developing dizziness and lightheadedness associated with pain and paresthesias in the right arm and leg. Nahum reports that her symptoms have been gradually [...] down her arm. She does not endorse left-sided weakness or facial weakness. Nahum reports that her symptoms have not improved [...] hours. (Patient not taking: Reported on 12/20/2024) pred (more content not included)... Normal [facility] 12-20-2024 [facility] Telephone (NECVS8) NAHUM SEGOVIA ([id number]) 1980 F Date Time Provider Department 12/20/24 JOHNATHAN RAMIREZ NECVS8 During your visit today, we recorded the following information about you: Dorothy Ragsdale RN 12/20/2024 10:53 AM Signed Faxed MRI Cervical order to [facility] per Dr. Ramirez. Dorothy Ragsdale RN Allergies As of Date: 12/20/2024 Noted Allergy Reaction DESONIDE 09/12/1994 14 - Other: See Comments Comments: Other reaction(s): Other (See Comments) Unknown Unknown FENTANYL 08/29/2024 10 - Anaphylaxis IBUPROFEN 10/13/2012 14 - Other: See Comments Comments: Other reaction(s): Other (See Comments) Rectal bleed Rectal bleed LATEX 10/13/2012 14 - Other: See Comments Comments: Other reaction(s): Hives, Other (See Comments) Burning Burning PENICILLINS 10/13/2012 10 - Anaphylaxis 2 - Rash Comments: Other reaction(s): other PREDNISONE 06/05/2016 7 - Swelling ADHESIVE 05/24/2013 14 - Other: See Comments Comments: Other reaction(s): other MORPHINE 02/26/2023 14 - Other: See Comments Comments: Other reaction(s): Other (See Comments) Labored breathing, chest tightening. Labored breathing, chest tightening. BACITRACIN 10/29/2024 2 - Rash CEPHALEXIN 02/26/2023 11 - Vomiting Comments: Other reaction(s): Unknown Date Reviewed: 12/20/2024 Reviewed by: Caroline Summers MA - Fully Assessed Prescriptions as of 12/20/2024 - ALPRAZolam (XANAX) 0.25 mg tablet Take 0.25 mg by mouth three times a day as needed. - aspirin 81 mg chewable tablet Take 81 mg by mouth once daily. - Cholecalciferol, Vitamin D3, 50 mcg (2,000 unit) cap Take 1 capsule by mouth every morning. - losartan (COZAAR) 50 mg tablet Take 50 mg by mouth once daily. - meclizine 25 mg chewable tablet(s) Take 25 mg by mouth every 12 hours. - metoprolol succinate ER (TOPROL XL) 50 mg 24 hr tablet Take 50 mg by mouth once daily. - predniSONE (DELTASONE) 20 mg tablet Take 20 mg by mouth once daily. - spironolactone (ALDACTONE) 25 mg tablet Take 50 mg by mouth daily at bedtime. - tamsulosin (FLOMAX) 0.4 mg Take 0.4 mg by mouth once daily. - tiZANidine (ZANAFLEX) 4 mg tablet Take 4 mg by mouth every 8 hours as needed. - valACYclovir (VALTREX) 1 gram tablet Take 1,000 mg by mouth once daily. - triamcinolone acetonide (KENALOG) 0.1 % cream Apply 1 application to affected area two times a day. Problem List As Of Date: 12/20/2024 (None) Encounter Status:Closed by DOROTHY RAGSDALE on 12/20/24 Normal [facility] Orders Onlyon 12-20-2024 Orders Only [id number] Marizol Segovia 1980 F Date Provider Department Center 12/20/2024 [id number] QUINTANILLA SUPRIYA [place] Family History Problem Relation Age of Onset Other Mother Diabetes Mother Mitral valve prolapse Mother Hypertension Mother Colon cancer Maternal Grandfather Heart attack Maternal Grandfather Brain Aneurysm Maternal Grandfather Family Status - Relation Status Age at Mother Maternal Grandfather Paternal Grandfather Normal [facility] CNPNon 12-08-2024 CNPN Telephone (NIQ) NAHUM SEGOVIA ([id number]) 1980 F Date Time Provider Department 12/08/24 JOHNATHAN RAMIREZ NIQ During your visit today, we recorded the following information about you: Jose Manuel Falk 12/11/2024 1:56 PM Addendum OS imaging/records received from [facility]: December 08, 2024 - Records available in Care Everywhere - Images Allergies As of Date: 12/08/2024 (Not on File) Date Reviewed: Never Reviewed Reason for Visit: Imaging/Records [Other] Prescriptions as of 12/26/2024 - ALPRAZolam (XANAX) 0.25 mg tablet Take 0.25 mg by mouth three times a day as needed. - aspirin 81 mg chewable tablet Take 81 mg by mouth once daily. - Cholecalciferol, Vitamin D3, 50 mcg (2,000 unit) cap Take 1 capsule by mouth every morning. - losartan (COZAAR) 50 mg tablet Take 50 mg by mouth once daily. - meclizine 25 mg chewable tablet(s) Take 25 mg by mouth every 12 hours. - metoprolol succinate ER (TOPROL XL) 50 mg 24 hr tablet Take 50 mg by mouth once daily. - predniSONE (DELTASONE) 20 mg tablet Take 20 mg by mouth once daily. - spironolactone (ALDACTONE) 25 mg tablet Take 50 mg by mouth daily at bedtime. - tamsulosin (FLOMAX) 0.4 mg Take 0.4 mg by mouth once daily. - tiZANidine (ZANAFLEX) 4 mg tablet Take 4 mg by mouth every 8 hours as needed. - valACYclovir (VALTREX) 1 gram tablet Take 1,000 mg by mouth once daily. - triamcinolone acetonide (KENALOG) 0.1 % cream Apply 1 application to affected area two times a day. Problem List As Of Date: 12/08/2024 (None) Encounter Status:Closed by JOSE MANUEL FALK on 12/26/24 [facility] Telephone (NECVS8) NAHUM SEGOVIA ([id number]) 1980 F Date Time Provider Department 12/06/24 NEUROLOGY PROVIDER [facility] During your visit today, we recorded the following information about you: Esperanza Booker 12/06/2024 1:08 PM Signed Patient has referral to see a stroke physician see referral from [facility] imported into [facility]. Diagnosis: Tia left side weakness. Allergies As of Date: 12/06/2024 (Not on File) Date Reviewed: Never Reviewed Reason for Visit: Referral Information [[id number]] Cmt: Patient has referral to see a stroke physician see referral from [facility] imported into [facility]. Problem List As Of Date: 12/06/2024 (None) Encounter Status:Closed by ESPERANZA BOOKER on 12/06/24 [facility] 36on 12-05-2024 Jay Munoz and Case work er called office to follow up on surgical plan. Mri was completed with no significant findings but patient still experiencing stroke like symptoms. Asked patient if she has a referral to neurology. Patient stated she did not know. general utility worker told me she would call Nahum's PCP and get referral to Neurology close to where Nahum lives and call me with appointment details and get fax number for our office to send neuro clearance letter. Patient has no further questions or concerns at this time. Normal [facility] Orders Onlyon 11-29-2024 Orders Only [id number] Marizol Segovia 1980 F Date Provider Department Center 11/29/2024 2020-BONNIE CARRION HVCTS [facility] Family History Problem Relation Age of Onset Other Mother Diabetes Mother Mitral valve prolapse Mother Hypertension Mother Colon cancer Maternal Grandfather Heart attack Maternal Grandfather Brain Aneurysm Maternal Grandfather Family Status - Relation Status Age at Mother Maternal Grandfather Paternal Grandfather [facility] 36on 11-27-2024 36 Called patient to follow up on MRI ordered last week by her pcp. She stated she got it this morning at [facility]. I will get images and reports from [place] and upload. [facility] APTTon 11-25-2024 aPTT Coag (Bld) [Time] 30.2 s [facility] Comment on above: IV Heparin Therapy Range: 62.0-94.0 [facility] aPTT Coag (Bld) [Time] 30.2 s Normal 23.9-33.8 [facility] Comment on above: Result Comment: IV Heparin Therapy Range: 62.0-94.0 Performed By: #### D ANDIE, BNP, CDP, PTT, PT, TROPI, CP ####[facility] [id number] [place] [address] lab Director: Ronnie Mayo MD Brain Natri. Peptideon 11-25 Natriuretic peptide B (Bld) [Mass/Vol] 73 pg/mL Normal <300 [facility] Comment on above: Result Comment: An a ge-independent cutoff point of 300 pg/ml has a 98% negative predictive value excluding acute heart failure. Performed By: #### D ANDIE, BNP, CDP, PTT, PT, TROPI, CP ####[facility] [id number] [place] [address] lab Director: Ronnie Mayo MD Brain Natriuretic Peptideon 11-25-2024 Natriuretic peptide B (Bld) [Mass/Vol] 73 pg/mL NINF - 300 pg/mL [facility] Comment on above: An age-independent c utoff point of 300 pg/ml has a 98% negative predictive value excluding acute heart failure. CBC with Auto Differentialon 11-25-2024 Basophils (Bld) [#/Vol] 0.02 10*3/uL [facility] Basophils/100 WBC (Bld) 0 % 0 - 2 % [facility] Eosinophils (Bld) [#/Vol] 0.03 10*3/uL [facility] Eosinophils/100 WBC (Bld) 0 % 0 - 5 % [facility] Erythrocyte distribution width (RBC) [Ratio] 12 % Low 12.1 - 15.2 % [facility] Hematocrit (Bld) [Volume fraction] 40.5 % 36.0 - 46.0 % [facility] Hemoglobin (Bld) [Mass/Vol] 14.1 g/dL 12.0 - 16.0 g/dL [facility] Immature granulocytes (Bld) [#/Vol] 0.02 10*3/uL [facility] Immature granulocytes/100 WBC (Bld) 0 % 0 - 5 % [facility] Interpretation and review of laboratory results Abnormal [facility] Lymphocytes/100 WBC (Bld) 33 % 15 - 40 % [facility] Lymphocytes/100 WBC (Bld) 3.15 % [facility] MCH (RBC) [Entitic mass] 31.7 pg 26.0 - 34.0 pg [facility] MCHC (RBC) [Mass/Vol] 34.8 g/dL 31.0 - 37.0 g/dL [facility] MCV (RBC) [Entitic vol] 91 fL 80.0 - 100.0 fL [facility] Monocytes/100 WBC (Bld) 8 % 4 - 8 % [facility] Monocytes/100 WBC (Bld) 0.75 % [facility] Neutrophils/100 WBC (Bld) 59 % 47 - 75 % [facility] Platelet mean volume (Bld) [Entitic vol] 9 fL 6.0 - 12.0 fL [facility] Platelets (Bld) [#/Vol] 262 10*3/uL [facility] RBC (Bld) [#/Vol] 4.45 10*6/uL 4.00 - 5.2 0 m/uL [facility] Segmented neutrophils/100 WBC (Bld) 5.73 % [facility] WBC other (Bld) [#/Vol] 9.7 [facility] CBC with Diffon 11-25-2024 Abs. Basophil 0.02 k/uL Normal 0.00-0.20 [facility] Comment on above: Performed By: #### D ANDIE, BNP, CDP, PTT, PT, TROPI, CP ####[facility] [id number] [place] [address] lab Director: Ronnie Mayo MD Abs.Imm.Granulocyte 0.02 k/uL Normal 0.00-0.30 [facility] Comment on above: Performed By: #### D ANDIE, BNP, CDP, PTT, PT, TROPI, CP ####[facility] [id number] [place] [address] lab Director: Ronnie Mayo MD Abs.Neutrophil (Seg) 5.73 k/uL Normal 2.5-7.0 [facility] Comment on above: Performed By: #### D ANDIE, BNP, CDP, PTT, PT, TROPI, CP ####[facility] [id number] [place] [address] lab Director: Ronnie Mayo MD Basophils/100 WBC (Bld) 0 % Normal 0-2 [facility] Comment on above: Performed By: #### D ANDIE, BNP, CDP, PTT, PT, TROPI, CP ####[facility] [id number] [place] [address] Lab Director: Ronnie Mayo MD Eosinophils (Bld) [#/Vol] 0.03 10*3/uL Normal 0.00-0.40 [facility] Comment on above: Performed By: #### D ANDEI, BNP, CDP, PTT, PT, TROPI, CP ####[facility] [id number] [place] [address] lab Director: Ronnie Mayo MD Eosinophils/100 WBC (Bld) 0 % Normal 0-5 [facility] Comment on above: Performed By: #### D ANDIE, BNP, CDP, PTT, PT, TROPI, CP ####[facility] [id number] [place] [address] Lab Director: Ronnie Mayo MD Erythrocyte distribution width (RBC) [Ratio] 12.0 % Low 12.1-15.2 [facility] Comment on above: Performed By: #### D ANDIE, BNP, CDP, PTT, PT, TROPI, CP ####[facility] [id number] [place] [address] Lab Director: Ronnie Mayo MD Hematocrit (Bld) [Volume fraction] 40.5 % Normal 36.0-46.0 [facility] Comment on above: Performed By: #### D ANDIE, BNP, CDP, PTT, PT, TROPI, CP ####[facility] [id number] [place] [address] Lab Director: Ronnie Mayo MD Hemoglobin (Bld) [Mass/Vol] 14.1 g/dL Normal 12.0-16.0 [facility] Comment on above: Performed By: #### D ANDIE, BNP, CDP, PTT, PT, TROPI, CP ####[facility] [id number] [place], [place] [id number] lab Director: Ronnie Mayo MD Immature granulocytes/100 WBC (Bld) 0 % Normal 0-5 [facility] Comment on above: Performed By: #### D ANDIE, BNP, CDP, PTT, PT, TROPI, CP ####[facility] [id number] [place] [address] lab Director: Ronnie Mayo MD Lymphocytes (Bld) [#/Vol] 3.15 10*3/uL Normal 1.00-4.80 [facility] Comment on above: Performed By: #### D ANDIE, BNP, CDP, PTT, PT, TROPI, CP ####[facility] [id number] [facility] [place] [address] lab Director: Ronnie Mayo MD Lymphocytes/100 WBC (Bld) 33 % Normal 15-40 [facility] Comment on above: Performed By: #### D ANDIE, BNP, CDP, PTT, PT, TROPI, CP ####[facility] [id number] [facility] [place] [address] lab Director: Ronnie Mayo MD MCH (RBC) [Entitic mass] 31.7 pg Normal 26.0-34.0 [facility] Comment on above: Performed By: #### D ANDIE, BNP, CDP, PTT, PT, TROPI, CP ####[facility] [id number] [facility] [address] lab Director: Ronnie Mayo MD MCHC (RBC) [Mass/Vol] 34.8 g/dL Normal 31.0-37.0 [facility] Comment on above: Performed By: #### D ANDIE, BNP, CDP, PTT, PT, TROPI, CP ####[facility] [id number] [place] [address] Lab Director: Ronnie Mayo MD MCV (RBC) [Entitic vol] 91.0 fL Normal 80.0-100.0 [facility] Comment on above: Performed By: #### D ANDIE, BNP, CDP, PTT, PT, TROPI, CP ####[facility] [id number] [place] [address] Lab Director: Ronnie Mayo MD Monocytes (Bld) [#/Vol] 0.75 10*3/uL Normal 0.00-1.00 [facility] Comment on above: Performed By: #### D ANDIE, BNP, CDP, PTT, PT, TROPI, CP ####[facility] [id number] [place] [address] Lab Director: Ronnie Mayo MD Monocytes/100 WBC (Bld) 8 % Normal 4-8 [facility] Comment on above: Performed By: #### D ANDIE, BNP, CDP, PTT, PT, TROPI, CP ####[facility] [id number] [facility], [facility] Lab Director: Ronnie Mayo MD Neutrophil (Seg) 59 % Normal 47-75 [facility] Comment on above: Performed By: #### D ANDIE, BNP, CDP, PTT, PT, TROPI, CP ####[facility] [id number] [place] [address] Lab Director: Ronnie Mayo MD Platelet mean volume (Bld) [Entitic vol] 9.0 fL Normal 6.0-12.0 [facility] Comment on above: Performed By: #### D ANDIE, BNP, CDP, PTT, PT, TROPI, CP ####[facility] [id number] [place] [address] Lab Director: Ronnie Mayo MD Platelets (Bld) [#/Vol] 262 10*3/uL Normal 140-450 [facility] Comment on above: Performed By: #### D ANDIE, BNP, CDP, PTT, PT, TROPI, CP ####[facility] [id number] [place] [address] Lab Director: Ronnie Mayo MD RBC (Bld) [#/Vol] 4.45 10*6/uL Normal 4.00-5.20 [facility] Comment on above: Performed By: #### D ANDIE, BNP, CDP, PTT, PT, TROPI, CP ####[facility] [id number] [place] [address] Lab Director: Ronnie Mayo MD WBC (Bld) [#/Vol] 9.7 10*3/uL Normal 3.5-11.0 [facility] Comment on above: Performed By: #### D ANDIE, BNP, CDP, PTT, PT, TROPI, CP ####[facility] [id number] [facility] [place] [address] lab Director: Ronnie Mayo MD Comp Metabolic Profon 2024 Albumin [Mass/Vol] 4.5 g/dL Normal 3.5-5.2 [facility] Comment on above: Performed By: #### D ANDIE, BNP, CDP, PTT, PT, TROPI, CP ####[facility] [id number] [facility] [address] lab Director: Ronnie Mayo MD Albumin/Glob Ratio 1.8 Normal 1.0-2.5 [facility] Comment on above: Performed By: #### D ANDIE, BNP, CDP, PTT, PT, TROPI, CP ####[facility] [id number] [facility] [place] [address] Lab Director: Ronnie Mayo MD Alkaline Phos 68 U/L Normal 35-104 [facility] Comment on above: Performed By: #### D ANDIE, BNP, CDP, PTT, PT, TROPI, CP ####[facility] [id number] [place] [address] lab Director: Ronnie Mayo MD ALT [Catalytic activity/Vol] 24 U/L Normal 5-33 [facility] Comment on above: Performed By: #### D ANDIE, BNP, CDP, PTT, PT, TROPI, CP ####[facility] [id number] [place], [place] [id number] lab Director: Ronnie Mayo MD Anion gap [Moles/Vol] 11 mmol/L Normal 9-17 [facility] Comment on above: Performed By: #### D ANDIE, BNP, CDP, PTT, PT, TROPI, CP ####[facility] [id number] [place] [address] lab Director: Ronnie Mayo MD AST [Catalytic activity/Vol] 17 U/L Normal <32 [facility] Comment on above: Performed By: #### D ANDIE, BNP, CDP, PTT, PT, TROPI, CP ####[facility] [id number] [place] [address] lab Director: Ronnie Mayo MD Bilirubin [Mass/Vol] 0.6 mg/dL Normal 0.3-1.2 [facility] Comment on above: Performed By: #### D ANDIE, BNP, CDP, PTT, PT, TROPI, CP ####[facility] [id number] [place] [address] lab Director: Ronnie Mayo MD Calcium [Mass/Vol] 9.3 mg/dL Normal 8.6-10.4 [facility] Comment on above: Performed By: #### D ANDIE, BNP, CDP, PTT, PT, TROPI, CP ####[facility] [id number] [place] [address] lab Director: Ronnie Mayo MD Chloride [Moles/Vol] 109 mmol/L High 98-107 [facility] Comment on above: Performed By: #### D ANDIE, BNP, CDP, PTT, PT, TROPI, CP ####[facility] [id number] [place] [address] lab Director: Ronnie Mayo MD CO2 [Moles/Vol] 20 mmol/L Normal 20-31 [facility] Comment on above: Performed By: #### D ANDIE, BNP, CDP, PTT, PT, TROPI, CP ####[facility] [id number] [place] [address] lab Director: Ronnie Mayo MD Creatinine [Mass/Vol] 0.7 mg/dL Normal 0.5-0.9 [facility] Comment on above: Performed By: #### D ANDIE, BNP, CDP, PTT, PT, TROPI, CP ####[facility] [id number] [place] [address] lab Director: Ronnie Mayo MD GFR/1.73 sq M.predicted among non-blacks MDRD (S/P/Bld) [Vol rate/Area] mL/min/{1.73_m2} Normal >60 [facility] Comment on above: Result Comment: These results [...] affects renal tubular secretion. Performed By: #### D ANDIE, BNP, CDP, PTT, PT, TROPI, CP ####[facility] [id number] [place] [address] lab Director: Ronnie Mayo MD Glucose [Mass/Vol] 104 mg/dL High 70-99 [facility] Comment on above: Performed By: #### D ANDIE, BNP, CDP, PTT, PT, TROPI, CP ####[facility] [id number] [place], [place] [id number] lab Director: Ronnie Mayo MD Potassium [Moles/Vol] 3.8 mmol/L Normal 3.7-5.3 [facility] Comment on above: Performed By: #### D ANDIE, BNP, CDP, PTT, PT, TROPI, CP ####[facility] [id number] [place] [address] lab Director: Ronnie Mayo MD Protein [Mass/Vol] 7.0 g/dL Normal 6.4-8.3 [facility] Comment on above: Performed By: #### D ANDIE, BNP, CDP, PTT, PT, TROPI, CP ####[facility] [id number] [place] [address] lab Director: Ronnie Mayo MD Sodium [Moles/Vol] 140 mmol/L Normal 135-144 [facility] Comment on above: Performed By: #### D ANDIE, BNP, CDP, PTT, PT, TROPI, CP ####[facility] [id number] [place] [address] lab Director: Ronnie Mayo MD Urea nitrogen [Mass/Vol] 8 mg/dL Normal 6-20 [facility] Comment on above: Performed By: #### D ANDIE, BNP, CDP, PTT, PT, TROPI, CP ####[facility] [id number] [place] [address] Lab Director: Ronnie Mayo MD Comprehensive Metabolic Pane [facility] 11-25-2024 Albumin [Mass/Vol] 4.5 g/dL 3.5 - 5.2 g/dL [facility] Albumin/Globulin [Mass ratio] 1.8 {ratio} 1.0 - 2.5 [facility] ALP [Catalytic activity/Vol] 68 U/L 35 - 104 U/L [facility] ALT [Catalytic activity/Vol] 24 U/L 5 - 33 U/L [facility] Anion gap [Moles/Vol] 11 mmol/L 9 - 17 mmol/L [facility] AST [Catalytic activity/Vol] 17 U/L NINF - 32 U/L [facility] Bilirubin [Mass/Vol] 0.6 mg/dL 0.3 - 1.2 mg/dL [facility] Calcium [Mass/Vol] 9.3 mg/dL 8.6 - 10. 4 mg/dL [facility] Chloride [Moles/Vol] 109 mmol/L High 98 - 107 mmol/L [facility] CO2 [Moles/Vol] 20 mmol/L 20 - 31 mmol/L [facility] Creatinine [Mass/Vol] 0.7 mg/dL 0.5 - 0.9 mg/dL [facility] Est, [place] Mot Rate - PINF [facility] Comment on above: These results are [...] 104 mg/dL High 70 - 99 mg/dL [facility] Interpretation and review of laboratory results Abnormal [facility] Potassium [Moles/Vol] 3.8 mmol/L 3.7 - 5.3 mmol/L [facility] Protein [Mass/Vol] 7 g/dL 6.4 - 8.3 g/dL [facility] Sodium [Moles/Vol] 140 mmol/L 135 - 144 mmol/L [facility] Urea nitrogen [Mass/Vol] 8 mg/dL 6 - 20 mg/dL [facility] D-Dimer Teston 11-25-2024 D-Dimer Test <0.27 Normal 0.00-0.59 [facility] Comment on above: Result Comment: When combined [...] with distal DVT. Performed By: #### D ANDIE, BNP, CDP, PTT, PT, TROPI, CP ####[facility] [id number] [place] [address] lab Director: Ronnie Mayo MD D-Dimer, [facility] 11-12 Fibrin D-dimer FEU (PPP) [Mass/Vol] [facility] Comment on above: When combined [...] more prevalent in patients with distal DVT. [facility] No Panel Informationon 11-25 [facility] PTon 11-25-2024 INR Coag (PPP) [Relative time] 1.1 {INR} Normal [facility] Comment on above: Result Comment: Therapeutic Range: Moderate Anticoagulant Intensity: INR = 2.0-3.0 High Anticoagulant Intensity: INR = 2.5-3.5 Performed By: #### D ANDIE, BNP, CDP, PTT, PT, TROPI, CP ####[facility] [id number] [place], [place] [id number] lab Director: Ronnie Mayo MD PT Coag (PPP) [Time] 14.0 s Normal 11.5-14.2 [facility] Comment on above: Performed By: #### D ANDIE, BNP, CDP, PTT, PT, TROPI, CP ####[facility] [id number] [place] [address] lab Director: Ronnie Mayo MD Portable XR Chest AP single viewon 11-25-2024 No acute pulmonary findings. [facility] RIS CONSOLIDATED EXAM: XR CHEST DIPTI BLE [...] stable and the osseous structures appear intact. [facility] RIS CONSOL[facility] Kiara Franco MD - 11/25/2024 EXAM: [...] appear intact. IMPRESSION: No acute pulmonary findings. [facility] Radiology Study observation (narrative) [facility] Portable XR Chest AP single viewOrdered By: iKara Franco on 11-25-2024 [facility] Work Phone: Protime-INRon 11-25-2024 INR Coag (PPP) [Relative time] 1.1 {INR} [facility] Comment on above: Therapeutic Range: Moderate Anticoagulant Intensity: INR = 2.0-3.0 High Anticoagulant Intensity: INR = 2.5-3.5 PT Coag (PPP) [Time] 14.0 s [facility] Troponinon 11-25-2024 Troponin I.cardiac High sensitivity method [Mass/Vol] ng/L 0 - 14 ng/L [facility] Comment on above: High Sensitivity Tro ponin values cannot be compared with other Troponin methodologies. Troponin, High Sens <6 Normal 0-14 [facility] Comment on above: Result Comment: High Sensitivity Troponin values cannot be compared with other Troponin methodologies. Performed By: #### D ANDIE, BNP, CDP, PTT, PT, TROPI, CP ####[facility] [id number] [place] [address] Lab Director: Ronnie Mayo MD XR CHEST PORTABLEon 11-26-19 XR CHEST PORTABLE EXAM: XR CHEST DIPTI BLE HISTORY: Shortness [...] appear intact. IMPRESSION: No acute pulmonary findings. Interpreted by: Kiara Franco MD Signed by: Kiara Franco MD 11/25/24 Final result Normal [facility] 11-23-2024 36 Nichole from [facility] BS nurse top case assembler called in to provide her information if she is needed. She can be reached at [phone]. Normal [facility] Telephoneon 11-23-2024 Telephone [id number] Marizol Segovia 1980 F Date Provider Department Center 11/23/2024 [id number] [place] [facility] HeartVAS Family History Problem Relation Age of Onset Other Mother Diabetes Mother Mitral valve prolapse Mother Hypertension Mother Colon cancer Maternal Grandfather Heart attack Maternal Grandfather Brain Aneurysm Maternal Grandfather Family Status - Relation Status Age at Mother Maternal Grandfather Paternal Grandfather Reason for Visit and Comments: Other [Other] [facility] 11-21-2024 36 Phoned patient to le t her know that her primary care physician spoke to our provider regarding Neuro Work Up prior Normal [facility] 11-20-2024 36 Follow up [facility] Orders Onlyon 11-20-2024 Orders Only [id number] Marizol Segovia 1980 F Date Provider Department Center 11/20/2024 NUSRAT GRAYSON [facility] PAC RI Medical C Family History Problem Relation Age of Onset Other Mother Diabetes Mother Mitral valve prolapse Mother Hypertension Mother Colon cancer Maternal Grandfather Heart attack Maternal Grandfather Brain Aneurysm Maternal Grandfather Family Status - Relation Status Age at Mother Maternal Grandfather Paternal Grandfather Normal [facility] 11-17-2024 36 Patient was given th e [...] at registration desk in main lobby of [facility] then check in on second floor at surgical waiting room desk. Normal [facility] Abstracton 11-17-2024 Abstract [id number] Marizol Segovia 1980 F Date Provider Department Center 11/17/2024 2020-BONNIE CARRION [facility]CTS [facility] HeartVAS Family History Problem Relation Age of Onset Other Mother Diabetes Mother Mitral valve prolapse Mother Hypertension Mother Colon cancer Maternal Grandfather Heart attack Maternal Grandfather Brain Aneurysm Maternal Grandfather Family Status - Relation Status Age at Mother Maternal Grandfather Paternal Grandfather Normal [facility] 29on 11-16-2024 29 Addended by: TRINIDAD FRANCISCO on: 11/20/2024 10:36 AM Modules accepted: Level of Service Normal [facility] Consulton 11-16-2024 Consult [id number] Marizol Segovia 1980 Provider Department Center 11/16/2024 113-TRINIDAD FRANCISCO [facility] HeartVAS Family History Problem Relation Age of Onset Other Mother Diabetes Mother Mitral valve prolapse Mother Hypertension Mother Colon cancer Maternal Grandfather Heart attack Maternal Grandfather Brain Aneurysm Maternal Grandfather Family Status - Relation Status Age at Mother Maternal Grandfather Paternal Grandfather Level of Service:26095 [place] OFFICE/OUTPATIENT ESTABLISHED HIGH MDM 40 MIN Reason for Visit and Comments: Pre-op Visit [558] Normal [facility] BMPon 11-15-2024 Anion gap [Moles/Vol] 10 mmol/L 9 - 17 mmol/L Rep Calcium [Mass/Vol] 9.3 mg/dL 8.6 - 10. 4 mg/dL [facility] Chloride [Moles/Vol] 106 mmol/L 98 - 107 mmol/L [facility] CO2 [Moles/Vol] 22 mmol/L 20 - 31 mmol/L [facility] Creatinine [Mass/Vol] 0.7 mg/dL 0.5 - 0.9 mg/dL [facility] Est, Glom Filt Rate - PINF Jeannine [facility] [employer] Comment on above: These results are not [...] 104 mg/dL High 70 - 99 mg/dL [facility] Interpretation and review of laboratory results Abnormal [facility] Potassium [Moles/Vol] 4.4 mmol/L 3.7 - 5.3 mmol/L [facility] Sodium [Moles/Vol] 138 mmol/L 135 - 144 mmol/L [facility] Urea nitrogen [Mass/Vol] 11 mg/dL 6 - 20 mg/dL [facility] Basic Metabolic Profon 11-15 Anion gap [Moles/Vol] 10 mmol/L Normal 9-17 [facility] Comment on above: Performed By: #### B MP, CDP, HCG, TROPI ####[facility] [id number] [place] [address] Lab Director: Ronnie Mayo MD Calcium [Mass/Vol] 9.3 mg/dL Normal 8.6-10.4 [facility] Comment on above: Performed By: #### B MP, CDP, HCG, TROPI ####[facility] [id number] [place] [address] Lab Director: Rnonie Mayo MD Chloride [Moles/Vol] 106 mmol/L Normal 98-107 [facility] Comment on above: Performed By: #### B MP, CDP, HCG, TROPI ####[facility] [id number] [place] [address] Lab Director: Ronnie Mayo MD CO2 [Moles/Vol] 22 mmol/L Normal 20-31 [facility] Comment on above: Performed By: #### B MP, CDP, HCG, TROPI ####[facility] [id number] [place] [address] Lab Director: Ronnie Mayo MD Creatinine [Mass/Vol] 0.7 mg/dL Normal 0.5-0.9 [facility] Comment on above: Performed By: #### B MP, CDP, HCG, TROPI ####[facility] [id number] [place] [address] Lab Director: Ronnie Mayo MD GFR/1.73 sq M.predicted among non-blacks MDRD (S/P/Bld) [Vol rate/Area] mL/min/{1.73_m2} Normal >60 [facility] Comment on above: Result Comment: These results [...] renal tubular secretion. Performed By: #### B MP, CDP, HCG, TROPI ####[facility] [id number] [place] [address] Lab Director: Ronnie Mayo MD Glucose [Mass/Vol] 104 mg/dL High 70-99 [facility] Comment on above: Performed By: #### B MP, CDP, HCG, TROPI ####[facility] [id number] [place] [address] Lab Director: Ronnie Mayo MD Potassium [Moles/Vol] 4.4 mmol/L Normal 3.7-5.3 [facility] Comment on above: Performed By: #### B MP, CDP, HCG, TROPI ####[facility] [id number] [place] [address] Lab Director: Ronnie Mayo MD Sodium [Moles/Vol] 138 mmol/L Normal 135-144 [facility] Comment on above: Performed By: #### B MP, CDP, HCG, TROPI ####[facility] [id number] [place] [address] lab Director: Ronnie Mayo MD Urea nitrogen [Mass/Vol] 11 mg/dL Normal 6-20 [facility] Comment on above: Performed By: #### B MP, CDP, HCG, TROPI ####[facility] [id number] [place] [address] lab Director: Ronnie Mayo MD Brain Natri. Peptideon 11-15 Pro-BNP <36 Normal <300 [facility] Comment on above: Result Comment: An a ge-independent cutoff point of 300 pg/ml has a 98% negative predictive value excluding acute heart failure. Performed By: #### B CROWN WHEEL ASSEMBLER ####[facility] [id number] [place] [address] lab Director: Ronnie Mayo MD Brain Natriuretic Peptideon 11-15-2024 Natriuretic peptide B (Bld) [Mass/Vol] pg/mL NINF - 300 pg/mL [facility] Comment on above: An age-independent c utoff point of 300 pg/ml has a 98% negative predictive value excluding acute heart failure. [facility] CBC with Auto Differentialon 11-15-2024 Basophils (Bld) [#/Vol] 0.02 10*3/uL [facility] Basophils/100 WBC (Bld) 0 % 0 - 2 % [facility] Eosinophils (Bld) [#/Vol] 0.12 10*3/uL [facility] Eosinophils/100 WBC (Bld) 2 % 0 - 5 % [facility] Erythrocyte distribution width (RBC) [Ratio] 12.3 % 12.1 - 15.2 % [facility] Hematocrit (Bld) [Volume fraction] 41 % 36.0 - 46.0 % [facility] Hemoglobin (Bld) [Mass/Vol] 14.1 g/dL 12.0 - 16.0 g/dL [facility] Immature granulocytes (Bld) [#/Vol] 0 10*3/uL [facility] Immature granulocytes/100 WBC (Bld) 0 % 0 - 5 % [facility] Interpretation and review of laboratory results Abnormal [facility] Lymphocytes/100 WBC (Bld) 44 % High 15 - 40 % [facility] Lymphocytes/100 WBC (Bld) 3.04 % [facility] MCH (RBC) [Entitic mass] 31.4 pg 26.0 - 34.0 pg [facility] MCHC (RBC) [Mass/Vol] 34.4 g/dL 31.0 - 37.0 g/dL [facility] MCV (RBC) [Entitic vol] 91.3 fL 80.0 - 100.0 fL [facility] Monocytes/100 WBC (Bld) 10 % High 4 - 8 % [facility] Monocytes/100 WBC (Bld) 0.72 % [facility] Neutrophils/100 WBC (Bld) 44 % Low 47 - 75 % [facility] Platelet mean volume (Bld) [Entitic vol] 9 fL 6.0 - 12.0 fL [facility] Platelets (Bld) [#/Vol] 235 10*3/uL [facility] RBC (Bld) [#/Vol] 4.49 10*6/uL 4.00 - 5.2 0 m/uL [facility] Segmented neutrophils/100 WBC (Bld) 3.05 % [facility] WBC other (Bld) [#/Vol] 7 [facility] CBC with Diffon 11-15-2024 Abs. Basophil 0.02 k/uL Normal 0.00-0.20 [facility] Comment on above: Performed By: #### B MP, CDP, HCG, TROPI ####[facility] [id number] [place] [address] lab Director: Ronnie Mayo MD Abs.Imm.Granulocyte 0.00 k/uL Normal 0.00-0.30 [facility] Comment on above: Performed By: #### B MP, CDP, HCG, TROPI ####[facility] [id number] [place] [address] Lab Director: Ronnie Mayo MD Abs.Neutrophil (Seg) 3.05 k/uL Normal 2.5-7.0 [facility] Comment on above: Performed By: #### B MP, CDP, HCG, TROPI ####[facility] [id number] [place] [address] Lab Director: Ronnie Mayo MD Basophils/100 WBC (Bld) 0 % Normal 0-2 [facility] Comment on above: Performed By: #### B MP, CDP, HCG, TROPI ####[facility] [id number] [place] [address] Lab Director: Ronnie Mayo MD Eosinophils (Bld) [#/Vol] 0.12 10*3/uL Normal 0.00-0.40 [facility] Comment on above: Performed By: #### B MP, CDP, HCG, TROPI ####[facility] [id number] [place] [address] Lab Director: Ronnie Mayo MD Eosinophils/100 WBC (Bld) 2 % Normal 0-5 [facility] Comment on above: Performed By: #### B MP, CDP, HCG, TROPI ####[facility] [id number] [place] [address] Lab Director: Ronnie Mayo MD Erythrocyte distribution width (RBC) [Ratio] 12.3 % Normal 12.1-15.2 [facility] Comment on above: Performed By: #### B MP, CDP, HCG, TROPI ####[facility] [id number] [place] [address] Lab Director: Ronnie Mayo MD Hematocrit (Bld) [Volume fraction] 41.0 % Normal 36.0-46.0 [facility] Comment on above: Performed By: #### B MP, CDP, HCG, TROPI ####[facility] [id number] [place] [address] Lab Director: Ronnie Mayo MD Hemoglobin (Bld) [Mass/Vol] 14.1 g/dL Normal 12.0-16.0 [facility] Comment on above: Performed By: #### B MP, CDP, HCG, TROPI ####[facility] [id number] [place] [address] Lab Director: Ronnie Mayo MD Immature granulocytes/100 WBC (Bld) 0 % Normal 0-5 [facility] Comment on above: Performed By: #### B MP, CDP, HCG, TROPI ####[facility] [id number] [facility] [place] [address] Lab Director: Ronnie Mayo MD Lymphocytes (Bld) [#/Vol] 3.04 10*3/uL Normal 1.00-4.80 [facility] Comment on above: Performed By: #### B MP, CDP, HCG, TROPI ####[facility] [id number] [place] [address] Lab Director: Ronnie Mayo MD Lymphocytes/100 WBC (Bld) 44 % High 15-40 [facility] Comment on above: Performed By: #### B MP, CDP, HCG, TROPI ####[facility] [id number] [place] [address] Lab Director: Ronnie Mayo MD MCH (RBC) [Entitic mass] 31.4 pg Normal 26.0-34.0 [facility] Comment on above: Performed By: #### B MP, CDP, HCG, TROPI ####[facility] [id number] [place] [address] Lab Director: Ronnie Mayo MD MCHC (RBC) [Mass/Vol] 34.4 g/dL Normal 31.0-37.0 [facility] Comment on above: Performed By: #### B MP, CDP, HCG, TROPI ####[facility] [id number] [place] [address] Lab Director: Ronnie Mayo MD MCV (RBC) [Entitic vol] 91.3 fL Normal 80.0-100.0 [facility] Comment on above: Performed By: #### B MP, CDP, HCG, TROPI ####[facility] [id number] [facility] [place] [address] Lab Director: Ronnie Mayo MD Monocytes (Bld) [#/Vol] 0.72 10*3/uL Normal 0.00-1.00 [facility] Comment on above: Performed By: #### B MP, CDP, HCG, TROPI ####[facility] [id number] [place] [address] Lab Director: Ronnie Mayo MD Monocytes/100 WBC (Bld) 10 % High 4-8 [facility] Comment on above: Performed By: #### B MP, CDP, HCG, TROPI ####[facility] [id number] [place] [address] Lab Director: Ronnie Mayo MD Neutrophil (Seg) 44 % Low 47-75 [facility] Comment on above: Performed By: #### B MP, CDP, HCG, TROPI ####[facility] [address] [facility] [place] [address] Lab Director: Ronnie Mayo MD Platelet mean volume (Bld) [Entitic vol] 9.0 fL Normal 6.0-12.0 [facility] Comment on above: Performed By: #### B MP, CDP, HCG, TROPI ####[facility] [id number] [facility] [place] [address] Lab Director: Ronnie Mayo MD Platelets (Bld) [#/Vol] 235 10*3/uL Normal 140-450 [facility] Comment on above: Performed By: #### B MP, CDP, HCG, TROPI ####[facility] [address] [place], [place] [id number] Director: Ronnie Mayo MD RBC (Bld) [#/Vol] 4.49 10*6/uL Normal 4.00-5.20 [facility] Comment on above: Performed By: #### B MP, CDP, HCG, TROPI ####[facility] [id number] [place], [place] [phone] Director: Ronnie Mayo MD WBC (Bld) [#/Vol] 7.0 10*3/uL Normal 3.5-11.0 [facility] Comment on above: Performed By: #### B MP, CDP, HCG, TROPI ####[facility] [id number] [place], [place] [phone] Director: Ronnie Mayo MD CT HEAD WO CONTRASTon [...] Guido Gregorio MD 11/15/24 Final result Normal [facility] CT Head WO contraston 2024 No acute intracranial abnormality. [facility] RIS CONSOLIDATED NONCONTRAST HEAD CT COMPARISON: Head CT 01/22/2021. [...] Ventricles and cisternal spaces are age appropriate. [facility] Guido Gregorio M D - 11/15/2024 NONCONTRAST [...] age appropriate. IMPRESSION: No acute intracranial abnormality. [facility] Radiology Study observation (narrative) [facility] CT Head WO contrastOrdered B y: Guido Gregorio on 11-15-2024 [facility] Work Phone: CTA HEAD NECK W CONTRASTon [...] Patrizia Ramos DO 11/15/24 Final result Normal [facility] CTA Head vessels and Neck ve ssels W contrast Altagracia 11-15-2024 No hemodynamically significant stenosis, large vessel occlusion or aneurysm involving the neck or intracranial arterial vasculature. [facility] CONSOLIDATED EXAM: CTA HEAD NECK W CONTRAST [...] Visualized portion of the lungs are clear. [facility] CONSOLIDATED Patrizia Ramos DO - 11/15/2024 EXAM: CTA [...] involving the neck or intracranial arterial vasculature. [facility] Radiology Study observation (narrative) [facility] CTA Head vessels and Neck ve ssels W contrast IVOrdered By: Patrizia Pool on 11-15-2024 [facility] Work Phone: D-Dimer Teston 11-15-2024 D-Dimer Test 0.32 ug/mL FEU Normal 0.00-0.59 [facility] Comment on above: Result Comment: When combined [...] distal DVT. Performed By: #### D ANDIE ####[facility] [id number] [place] [address] lab Director: Ronnie Mayo MD D-Dimer, [facility] Fibrin D-dimer FEU (PPP) [Mass/Vol] 0.32 [facility] Comment on above: When combined [...] more prevalent in patients with distal DVT. [facility] EKG 12 LeadOrdered By: Garcia Burgos on 11-15-2024 Atrial Rate 66 BPM Rep Work Phone: P [place] 88 degrees [employer] Work Phone: P-R Interval 126 ms [employer] Work Phone: Q-T Interval 416 ms Rep Work Phone: QRS Duration 78 ms Rep Work Phone: QTc Calculation (Bazett) 436 ms Rep Work Phone: R [place] 27 degrees Rep Work Phone: T [place] 46 degrees Rep Work Phone: Ventricular Rate 66 BPM [employer] Work Phone: Rep Work Phone: EKG 12 Leadon 11-15-2024 Normal sinus rhythm Normal [facility] Garcia Burgos MD - 11/15/2024 Normal sinus rhythm Normal ECG Rep HCG Qualitative, Serumon HCG ( test) Ql Negative NEGATIVE Rep Comment on above: Specimens with hCG l evels near the threshold of the test (25 mIU/mL) may give a negative or indeterminate result. In such cases, another test should be performed with a new specimen in 48-72 hours. If early is suspected clinically in this setting, correlation with quantitative serum b-hCG level is suggested. [employer] has confirmed the use of plasma for this test. This has not been cleared or approved by the U.S. Food and Drug Administration. The FDA has determined that such clearance is not necessary. Rep HCG Screen, Bloodon 11-16-19 25 HCG Screen, Blood Negative Normal NEG [facility] Comment on above: Result Comment: Spec imens with hCG levels near the threshold of the test (25 mIU/mL) may give a negative or indeterminate result. In such cases, another test should be performed with a new specimen in 48-72 hours. If early is suspected clinically in this setting, correlation with quantitative serum b-hCG level is suggested. [facility] has confirmed the use of plasma for this test. This has not been cleared or approved by the U.S. Food and Drug Administration. The FDA has determined that such clearance is not necessary. Performed By: #### B MP, CDP, HCG, TROPI ####[facility] [id number] [place] [address] lab Director: Ronnie Mayo MD No Panel Informationon 11-15 [facility] Troponinon 11-15-2024 Troponin I.cardiac High sensitivity method [Mass/Vol] ng/L 0 - 14 ng/L [facility] Comment on above: High Sensitivity Tro ponin values cannot be compared with other Troponin methodologies. [facility] Troponin, High Sens <6 Normal 0-14 [facility] Comment on above: Result Comment: High Sensitivity Troponin values cannot be compared with other Troponin methodologies. Performed By: #### T ROPI ####[facility] [id number] [place] [address] lab Director: Ronnie Mayo MD Troponin I.cardiac High sensitivity method [Mass/Vol] ng/L 0 - 14 ng/L [facility] Comment on above: High Sensitivity Tro ponin values cannot be compared with other Troponin methodologies. Troponin, High Sens <6 Normal 0-14 [facility] Comment on above: Result Comment: High Sensitivity Troponin values cannot be compared with other Troponin methodologies. Performed By: #### B MP, CDP, HCG, TROPI ####[facility] [id number] [place] [address] lab Director: Ronnie Mayo MD Follow-Upon 10-30-2024 Follow-Up [id number] Marizol Segovia 1980 F Date Provider Department Center 10/30/2024 SARAH [facility] Family History Problem Relation Age of Onset Other Mother Diabetes Mother Mitral valve prolapse Mother Hypertension Mother Colon cancer Maternal Grandfather Heart attack Maternal Grandfather Brain Aneurysm Maternal Grandfather Family Status - Relation Status Age at Mother Father Alive Maternal Grandfather Paternal Grandfather Level of Service:77918 [place] OFFICE/OUTPATIENT ESTABLISHED MOD MDM 30 MIN Normal [facility] Basic Metabolic Panelon - Anion gap [Moles/Vol] 13 mmol/L 9 - 17 mmol/L [facility] Calcium [Mass/Vol] 9.3 mg/dL 8.6 - 10. 4 mg/dL [facility] Chloride [Moles/Vol] 106 mmol/L 98 - 107 mmol/L [facility] CO2 [Moles/Vol] 20 mmol/L 20 - 31 mmol/L [facility] Creatinine [Mass/Vol] 0.8 mg/dL 0.5 - 0.9 mg/dL [facility] Est, Glom Filt Rate - PINF [facility] Comment on above: These results are not [...] 125 mg/dL High 70 - 99 mg/dL [facility] Interpretation and review of laboratory results Abnormal [facility] Potassium [Moles/Vol] 4 mmol/L 3.7 - 5.3 mmol/L [facility] Sodium [Moles/Vol] 139 mmol/L 135 - 144 mmol/L [facility] Urea nitrogen [Mass/Vol] 9 mg/dL 6 - 20 mg/dL [facility] Basic Metabolic Profon 10-29 Anion gap [Moles/Vol] 13 mmol/L Normal -17 [facility] Comment on above: Performed By: #### B MP, BNP, DIME, PT, TROPI, CDP #### [facility] Lab [address] [place] [address] Tool Designer Apprentice: Ronnie Mayo MD Calcium [Mass/Vol] 9.3 mg/dL Normal 8.6-10.4 [facility] Comment on above: Performed By: #### B MP, BNP, DIME, PT, TROPI, CDP #### [facility] Lab [address] [place], [place] [id number] Tool Designer Apprentice: Ronnie Mayo MD Chloride [Moles/Vol] 106 mmol/L Normal 98-107 [facility] Comment on above: Performed By: #### B MP, BNP, DIME, PT, TROPI, CDP #### [facility] Lab [address] [place], [place] [id number] Tool Designer Apprentice: Ronnie Mayo MD CO2 [Moles/Vol] 20 mmol/L Normal 20-31 [facility] Comment on above: Performed By: #### B MP, BNP, DIME, PT, TROPI, CDP #### [facility] Lab [address] [place] [place], [place] [id number] Tool Designer Apprentice: Ronnie Mayo MD Creatinine [Mass/Vol] 0.8 mg/dL Normal 0.5-0.9 [facility] Comment on above: Performed By: #### B MP, BNP, DIME, PT, TROPI, CDP #### [facility] Lab [address] [place] [address] Tool Designer Apprentice: Ronnie Mayo MD GFR/1.73 sq M.predicted among non-blacks MDRD (S/P/Bld) [Vol rate/Area] mL/min/{1.73_m2} Normal >60 [facility] Comment on above: Result Comment: These results [...] renal tubular secretion. Performed By: #### B MP, BNP, DIME, PT, TROPI, CDP #### [facility] Lab [address] [place] [address] Tool Designer Apprentice: Ronnie Mayo MD Glucose [Mass/Vol] 125 mg/dL High 70-99 [facility] Comment on above: Performed By: #### B MP, BNP, DIME, PT, TROPI, CDP #### [facility] Lab [address] [place] [id number] Tool Designer Apprentice: Ronnie Mayo MD Potassium [Moles/Vol] 4.0 mmol/L Normal 3.7-5.3 [facility] Comment on above: Performed By: #### B MP, BNP, DIME, PT, TROPI, CDP #### [facility] Lab [address] [place] [id number] Tool Designer Apprentice: Ronnie Mayo MD Sodium [Moles/Vol] 139 mmol/L Normal 135-144 [facility] Comment on above: Performed By: #### B MP, BNP, DIME, PT, TROPI, CDP #### [facility] Lab [address] [place] [id number] Tool Designer Apprentice: Ronnie Mayo MD Urea nitrogen [Mass/Vol] 9 mg/dL Normal 6-20 [facility] Comment on above: Performed By: #### B MP, BNP, DIME, PT, TROPI, CDP #### [facility] Lab [address] [id number] Tool Designer Apprentice: Ronnie Mayo MD Brain Natri. Peptideon 10-29 Natriuretic peptide B (Bld) [Mass/Vol] 87 pg/mL Normal <300 [facility] Comment on above: Result Comment: An a ge-independent cutoff point of 300 pg/ml has a 98% negative predictive value excluding acute heart failure. Performed By: #### B MP, BNP, DIME, PT, TROPI, CDP #### [facility] Lab [address] [id number] Tool Designer Apprentice: Ronnie Mayo MD Brain Natriuretic Peptideon 10-29-2024 Natriuretic peptide B (Bld) [Mass/Vol] 87 pg/mL NINF - 300 pg/mL [facility] Comment on above: An age-independent c utoff point of 300 pg/ml has a 98% negative predictive value excluding acute heart failure. CBC with Auto Differentialon 10-29-2024 Basophils (Bld) [#/Vol] 0.01 10*3/uL [facility] Basophils/100 WBC (Bld) 0 % 0 - 2 % [facility] Eosinophils (Bld) [#/Vol] 0.08 10*3/uL [facility] Eosinophils/100 WBC (Bld) 1 % 0 - 5 % [facility] Erythrocyte distribution width (RBC) [Ratio] 11.8 % Low 12.1 - 15.2 % [facility] Hematocrit (Bld) [Volume fraction] 40.8 % 36.0 - 46.0 % [facility] Hemoglobin (Bld) [Mass/Vol] 14.1 g/dL 12.0 - 16.0 g/dL [facility] Immature granulocytes (Bld) [#/Vol] 0.01 10*3/uL [facility] Immature granulocytes/100 WBC (Bld) 0 % 0 - 5 % [facility] Interpretation and review of laboratory results Abnormal [facility] Lymphocytes/100 WBC (Bld) 40 % 15 - 40 % [facility] Lymphocytes/100 WBC (Bld) 3.15 % [facility] MCH (RBC) [Entitic mass] 31.5 pg 26.0 - 34.0 pg [facility] MCHC (RBC) [Mass/Vol] 34.6 g/dL 31.0 - 37.0 g/dL [facility] MCV (RBC) [Entitic vol] 91.1 fL 80.0 - 100.0 fL [facility] Monocytes/100 WBC (Bld) 8 % 4 - 8 % [facility] Monocytes/100 WBC (Bld) 0.6 % [facility] Neutrophils/100 WBC (Bld) 51 % 47 - 75 % [facility] Platelet mean volume (Bld) [Entitic vol] 8.9 fL 6.0 - 12.0 fL [facility] Platelets (Bld) [#/Vol] 270 10*3/uL [facility] RBC (Bld) [#/Vol] 4.48 10*6/uL 4.00 - 5.2 0 m/uL [facility] Segmented neutrophils/100 WBC (Bld) 4.04 % [facility] WBC other (Bld) [#/Vol] 7.9 [facility] CBC with Diffon 10-29-2024 Abs. Basophil 0.01 k/uL Normal 0.00-0.20 [facility] Comment on above: Performed By: #### B MP, BNP, DIME, PT, TROPI, CDP #### [facility] Lab [address] [place] [address] Tool Designer Apprentice: Ronnie Mayo MD Abs.Imm.Granulocyte 0.01 k/uL Normal 0.00-0.30 [facility] Comment on above: Performed By: #### B MP, BNP, DIME, PT, TROPI, CDP #### [facility] Lab [address] [place] [id number] Tool Designer Apprentice: Ronnie Mayo MD Abs.Neutrophil (Seg) 4.04 k/uL Normal 2.5-7.0 [facility] Comment on above: Performed By: #### B MP, BNP, DIME, PT, TROPI, CDP #### [facility] Lab [address] [place] [id number] Tool Designer Apprentice: Ronnie Mayo MD Basophils/100 WBC (Bld) 0 % Normal 0-2 [facility] Comment on above: Performed By: #### B MP, BNP, DIME, PT, TROPI, CDP #### [facility] Lab [address] [place] [id number] Tool Designer Apprentice: Ronnie Mayo MD Eosinophils (Bld) [#/Vol] 0.08 10*3/uL Normal 0.00-0.40 [facility] Comment on above: Performed By: #### B MP, BNP, DIME, PT, TROPI, CDP #### [facility] Lab [address] [place], [place] [id number] Tool Designer Apprentice: Ronnie Mayo MD Eosinophils/100 WBC (Bld) 1 % Normal 0-5 [facility] Comment on above: Performed By: #### B MP, BNP, DIME, PT, TROPI, CDP #### [facility] Lab [address] [place] [address] Tool Designer Apprentice: Ronnie Mayo MD Erythrocyte distribution width (RBC) [Ratio] 11.8 % Low 12.1-15.2 [facility] Comment on above: Performed By: #### B MP, BNP, DIME, PT, TROPI, CDP #### [facility] Lab [address] [place] [id number] Tool Designer Apprentice: Ronnie Mayo MD Hematocrit (Bld) [Volume fraction] 40.8 % Normal 36.0-46.0 [facility] Comment on above: Performed By: #### B MP, BNP, DIME, PT, TROPI, CDP #### [facility] Lab [address] [place] [address] Tool Designer Apprentice: Ronnie Mayo MD Hemoglobin (Bld) [Mass/Vol] 14.1 g/dL Normal 12.0-16.0 [facility] Comment on above: Performed By: #### B MP, BNP, DIME, PT, TROPI, CDP #### [facility] Lab [address] [place], [place] [phone] Tool Designer Apprentice: Ronnie Mayo MD Immature granulocytes/100 WBC (Bld) 0 % Normal 0-5 [facility] Comment on above: Performed By: #### B MP, BNP, DIME, PT, TROPI, CDP #### [facility] Lab [address] [place] [address] Tool Designer Apprentice: Ronnie Mayo MD Lymphocytes (Bld) [#/Vol] 3.15 10*3/uL Normal 1.00-4.80 [facility] Comment on above: Performed By: #### B MP, BNP, DIME, PT, TROPI, CDP #### [facility] Lab [address] [place] [address] Tool Designer Apprentice: Ronnie Mayo MD Lymphocytes/100 WBC (Bld) 40 % Normal 15-40 [facility] Comment on above: Performed By: #### B MP, BNP, DIME, PT, TROPI, CDP #### [facility] Lab [address] [place] [address] Tool Designer Apprentice: Ronnie Mayo MD MCH (RBC) [Entitic mass] 31.5 pg Normal 26.0-34.0 [facility] Comment on above: Performed By: #### B MP, BNP, DIME, PT, TROPI, CDP #### [facility] Lab [address] [place] [address] Tool Designer Apprentice: Ronnie Mayo MD MCHC (RBC) [Mass/Vol] 34.6 g/dL Normal 31.0-37.0 [facility] Comment on above: Performed By: #### B MP, BNP, DIME, PT, TROPI, CDP #### [facility] Lab [address] [place] [address] Tool Designer Apprentice: Ronnie Mayo MD MCV (RBC) [Entitic vol] 91.1 fL Normal 80.0-100.0 [facility] Comment on above: Performed By: #### B MP, BNP, DIME, PT, TROPI, CDP #### [facility] [address] [place] [address] Tool Designer Apprentice: Ronnie Mayo MD Monocytes (Bld) [#/Vol] 0.60 10*3/uL Normal 0.00-1.00 [facility] Comment on above: Performed By: #### B MP, BNP, DIME, PT, TROPI, CDP #### [facility] [address] [place] [address] Tool Designer Apprentice: Ronnie Mayo MD Monocytes/100 WBC (Bld) 8 % Normal 4-8 [facility] Comment on above: Performed By: #### B MP, BNP, DIME, PT, TROPI, CDP #### [facility] [address] [place] [address] Tool Designer Apprentice: Ronnie Mayo MD Neutrophil (Seg) 51 % Normal 47-75 [facility] Comment on above: Performed By: #### B MP, BNP, DIME, PT, TROPI, CDP #### [facility] Lab [address] [place] [address] Tool Designer Apprentice: Ronnie Mayo MD Platelet mean volume (Bld) [Entitic vol] 8.9 fL Normal 6.0-12.0 [facility] Comment on above: Performed By: #### B MP, BNP, DIME, PT, TROPI, CDP #### [facility] Lab [address] [place] [address] Tool Designer Apprentice: Ronnie Mayo MD Platelets (Bld) [#/Vol] 270 10*3/uL Normal 140-450 [facility] Comment on above: Performed By: #### B MP, BNP, DIME, PT, TROPI, CDP #### [facility] Lab [address] [place] [address] Tool Designer Apprentice: Ronnie Mayo MD RBC (Bld) [#/Vol] 4.48 10*6/uL Normal 4.00-5.20 [facility] Comment on above: Performed By: #### B MP, BNP, DIME, PT, TROPI, CDP #### [facility] Lab [address] [place], [place] [phone] Tool Designer Apprentice: Ronnie Mayo MD WBC (Bld) [#/Vol] 7.9 10*3/uL Normal 3.5-11.0 [facility] Comment on above: Performed By: #### B MP, BNP, DIME, PT, TROPI, CDP #### [facility] Lab [address] [place] [address] Tool Designer Apprentice: Ronnie Mayo MD D-Dimer Teston 10-29-2024 D-Dimer Test 0.28 ug/mL FEU Normal 0.00-0.59 [facility] Comment on above: Result Comment: When combined [...] with distal DVT. Performed By: #### B MP, BNP, DIME, PT, TROPI, CDP #### [facility] Lab [address] [place] [address] Tool Designer Apprentice: Ronnie Mayo MD D-Dimer, Quantitativeon 10-12 Fibrin D-dimer FEU (PPP) [Mass/Vol] 0.28 [facility] Comment on above: When combined with a [...] more prevalent in patients with distal DVT. [facility] HCG, Quanton 10-29-2024 HCG, Quant <0.2 Normal <5 [facility] Comment on above: Result Comment: Non-preg premeno <=5 Postmeno <=8 Male <=3 If HCG results do not concur with clinical observations, additional testing to confirm results is recommended. Performed By: #### B HCG ####[facility] [id number] [place], [place] [id number] lab Director: Ronnie Mayo MD HCG, Quantitative, on 10-29-2024 HCG.beta subunit Qn NINF [facility] Comment on above: Non-preg premeno <=5 Postmeno <=8 Male <=3 If HCG results do not concur with clinical observations, additional testing to confirm results is recommended. [facility] No Panel Informationon 10-29 [facility] PTon 10-29-2024 INR Coag (PPP) [Relative time] 0.9 {INR} Normal [facility] Comment on above: Result Comment: Therapeutic Range: Moderate Anticoagulant Intensity: INR = 2.0-3.0 High Anticoagulant Intensity: INR = 2.5-3.5 Performed By: #### B MP, BNP, DIME, PT, TROPI, CDP #### [facility] Lab [address] [place], [place] [phone] Tool Designer Apprentice: Ronnie Mayo MD PT Coag (PPP) [Time] 12.5 s Normal 11.5-14.2 [facility] Comment on above: Performed By: #### B MP, BNP, DIME, PT, TROPI, CDP #### [facility] Lab [address] [place] [address] Tool Designer Apprentice: Ronnie Mayo MD Portable XR Chest AP single viewon 10-29-2024 1. No acute cardiopulmonary disease. 2. Right pericardial cyst. [facility] EXAM: XR CHEST DIPTI BLE HISTORY: chest pain COMPARISON: 12/16/2023. Prior chest CT 09/04/2021. TECHNIQUE: AP portable. FINDINGS: Right pericardial cyst, unchanged. Pulmonary vascularity is within normal limits. The lungs and costophrenic angles are clear. [facility] Mikhail Juárez MD - 10/29/2024 EXAM: XR CHEST PORTABLE HISTORY: chest pain COMPARISON: 12/16/2023. Prior chest CT 09/04/2021. TECHNIQUE: AP portable. FINDINGS: Right pericardial cyst, unchanged. Pulmonary vascularity is within normal limits. The lungs and costophrenic angles are clear. IMPRESSION: 1. No acute cardiopulmonary disease. 2. Right pericardial cyst. [facility] Radiology Study observation (narrative) [facility] Portable XR Chest AP single viewOrdered By: Mikhail Juárez on 10-29-2024 [facility] Work Phone: Protime-INRon 10-29-2024 INR Coag (PPP) [Relative time] 0.9 {INR} [facility] Comment on above: Therapeutic Range: Moderate Anticoagulant Intensity: INR = 2.0-3.0 High Anticoagulant Intensity: INR = 2.5-3.5 PT Coag (PPP) [Time] 12.5 s [facility] Troponinon 10-29-2024 Troponin, High Sens <6 Normal 0-14 [facility] Comment on above: Result Comment: High Sensitivity Troponin values cannot be compared with other Troponin methodologies. Performed By: #### T ROPI #### [facility] Lab [address] [place], [place] [id number] Tool Designer Apprentice: Ronnie Mayo MD Troponin I.cardiac High sensitivity method [Mass/Vol] ng/L 0 - 14 ng/L [facility] Comment on above: High Sensitivity Tro ponin values cannot be compared with other Troponin methodologies. Troponin, High Sens <6 Normal 0-14 [facility] Comment on above: Result Comment: High Sensitivity Troponin values cannot be compared with other Troponin methodologies. Performed By: #### B MP, BNP, DIME, PT, TROPI, CDP #### [facility] Lab [address] [place] [address] Tool Designer Apprentice: Ronnie Mayo MD Troponin One timeon 10-30-19 Troponin I.cardiac High sensitivity method [Mass/Vol] ng/L 0 - 14 ng/L [facility] Comment on above: High Sensitivity Tro ponin values cannot be compared with other Troponin methodologies. [facility] XR CHEST PORTABLEon 10-30-19 XR CHEST PORTABLE [...] Mikhail Juárez MD 10/29/24 Final result Normal [facility] HPon 10-20-2024 H&P reviewed. The patient was examined and there are no changes to the H&P. Normal [facility] NURSNOTEon 10-20-2024 NURSNOTE RN educated pt on [...] off of unit with all of belongings. Normal [facility] Consulton 10-19-2024 Consult [id number] Marizol Segovia 1980 F Date Provider Department Center 10/19/[id number] [place] HVCTS RI HeartVAS Family History Problem Relation Age of Onset Other Mother Diabetes Mother Mitral valve prolapse Mother Hypertension Mother Colon cancer Maternal Grandfather Heart attack Maternal Grandfather Brain Aneurysm Maternal Grandfather Family Status - Relation Status Age at Mother Maternal Grandfather Paternal Grandfather Level of Service:26884 [place] OFFICE/OP CONSLTJ NEW/EST PT MOD MDM 40 MINUTES Reason for Visit and Comments: Consult [484] - Pericardial cyst [facility] 36on 10-03-2024 [address] and XR chest done at [facility]. Reports are scanned in media. Call placed to radiology at [facility] to request Images they stated that they will send over a Disc information provided to receive disc. [facility] HPon 09-29-2024 [facility] Cardiology - [facility] Subjective Nahum Segovia is a 43 y.o. year old female patient being seen to establish care. Ref from Dr. Price for abnormal echo performed this week at [facility]. Says she smokes 1/2 PPD, and [...] Behavior: Behavior (more content not included)... Normal [facility] Office Visiton 09-29-2024 Follow-up visit [id number] Marizol Segovia 1980 F Date Provider Department Center 09/29/2024 SARAH ESTES SUPRIYA Kaur [facility] Family History Problem Relation Age of Onset Other Mother Diabetes Mother Mitral valve prolapse Mother Hypertension Mother Colon cancer Maternal Grandfather Heart attack Maternal Grandfather Brain Aneurysm Maternal Grandfather Family Status - Relation Status Age at Mother Maternal Grandfather Paternal Grandfather Level of Service:95909 [place] OFFICE/OP CONSLTJ NEW/EST PT HIGH MDM 55 MINUTES Normal [facility] CT chest w conon 08-29-2024 CT chest w [facility] [place] [address] [place] [id number] Scan Report Signed Patient: Nahum Guzman MR# : [id number] : 1980 Acct:[id number] Age/Sex: 43 / F ADM Date: 08/29/24 Loc: CT Room: Type: [facility] Attending Dr: John Price MD Copies to: [...] 1001 Signed By: 08/29/24 1023 Normal [facility] X-ray reportOrdered By: Duke Beckwith on 08-11-2024 Study report [facility] Main [address] [address] XRay Report Signed Patient: Nahum Guzman MR#: [id number] : 1980 Acct:[id number] Age/Sex: 43 / F ADM Date: 5 Loc: CO Room: Type: REG REF Attending Dr: Sergo Hummel - [facility] , [facility] Copies to: Sergo Hummel DO~ Ordering [...] DO 08/11/24 1557 Signed By: 08/11/24 1558 [facility] XR chest 2V*on 08-11-2024 XR chest 2V* [facility] Main [address] [address] XRay Report Signed Patient: Nahum Guzman MR# : [id number] : 1980 Acct:[id number] Age/Sex: 43 / F ADM Date: 08/11/24 Loc: [place] Room: Type: REG REF Attending Dr: Sergo Hummel - [facility] , [facility] Copies to: Sergo Hummel DO Ordering [...] Beckwith Jr., D.OManuel08/11/2024 3:58 PM Dictation Location: [facility]- Transcribed By: [facility] 08/11/24 1558 Dictated By: Mina Beckwith Jr, DO 08/11/24 1557 Signed By: 08/11/24 1558 Normal [facility] Orders Onlyon 07-01-2023 Orders Only [id number] Nahum Segovia 1980 F Date Provider Department Center 07/01/2023 [id number], HISTORICAL DCC ONC DCC No family history on file Normal [facility] BREAST IMAGING SECOND OPINIO N READINGon 05-05-2023 [...] ultrasound is recommended for further evaluation. Normal [facility] Chlamydia/GC DNA, Uron 03-30 Chlamydia Probe, Ur Negative Normal NEG [facility] Comment on above: Result Comment: [...] nucleic acid target. Performed By: #### U [facility] #### [facility] [place] [address] Tool Designer Apprentice: Bjorn Balderas MD Gonorrhea Probe, Ur Negative Normal NEG [facility] Comment on above: Result Comment: [...] target. Performed By: #### U CGP #### [address] [address] Tool Designer Apprentice: Bjorn Balderas MD Chlamydia/GC DNA, TPon 03-01 Chlamydia Probe, TP Negative Normal [facility] Comment on above: Result Comment: CHLA [...] target. Performed By: #### C YTCGP #### [address] [address] Tool Designer Apprentice: Bjorn Balderas MD Gonorrhea Probe, TP POSITIVE: NEISSERIA GONORRHOEAE DNA detected by nucleic acid amplification. Abnormal NEG [facility] Comment on above: Result Comment: [...] Department Performed By: #### C YTCGP #### [address] [address] Tool Designer Apprentice: Bjorn Balderas MD Cult,Genitalon 03-01-2023 Cult,Genital Specimen Description .VAGINA Culture NORMAL URO-GENITAL YESSI NEISSERIA GONORRHOEAE LIGHT GROWTH Results reported to the appropriate Health Department NEGATIVE FOR GROUP B STREPTOCOCCI Report Status FINAL 03/01/2023 [facility] Comment on above: Performed By: #### G EC #### [address] [address] Tool Designer Apprentice: Bjorn Balderas MD [facility] [address] [place] [address] [place] [address] Tool Designer Apprentice: Ronnie Mayo MD Cytology Reporton 02-26-2023 Cytology report Cyto stain.thin prep Doc (Cvx/Vag) (NOTE) Path Number: [id number] DIAGNOSIS Imaged ThinPrep Pap - Cervical (1 monolayer slide): Specimen Adequacy: Satisfactory for evaluation. - Endocervical/transforma tion zone component present. Descriptive Diagnosis: Negative for intraepithelial lesion or malignancy. Comments: Specimen was screened at [facility], [address] [place] [address] [employer]otech Screener: CS Electronically Signed Out PARMINDER Jung(ASCP) cs/03/06/2023 Source of Specimen: A: Imaged ThinPrep Pap - Cervical (1 monolayer slide) HPV Reflex?................ ......HPV if Abnormal Clinical History Endometrial ablation Tubal ligation High risk HPV DNA testing is requested if the diagnosis is abnormal Z01.419 Routine zigzag appliquer exam without abnormal findings Processing Lab: [address] [id number] [place] [address] This Pap Test has been evaluated with the assistance of the [employer] Pap Test Imaging System. The Pap smear is a screening test primarily for squamous epithelial lesions, which is subject to both false negative and false positive results. Your patient should be reminded to consult you immediately if she experiences any suspicious signs or symptoms, regardless of her Pap smear result. GYNECOLOGIC CYTOLOGY REPORT Patient Name: NAHUM SEGOVIA [employer] [facility] Rec: [id number] [facility] ANATOMIC PATHOLOGY [address] [facility]. [place], [place] [address] Normal [facility] CULTURE URINEon 09-21-2022 CULTURE URINE Culture Observations : LIGHT GROWTH OF MIXED GENITAL YESSI. NO POTENTIAL PATHOGENS SEEN. Normal [facility] Comment on above: Performed By: #### U RCX #### [facility] [address] [place], [place] [address] Dr. Christopher Rivera UA RANDOM W/MICROSCOPICon BACTERIA TRACE Abnormal NONE SEEN [facility] Comment on above: Performed By: #### U AMIC #### [facility] [address] [address] [address] Christopher Rivera Bilirubin Ql (U) Negative Normal NEGATIVE [facility] Comment on above: Performed By: #### U AMIC #### [facility] [address] [place] [address] Dr. Christopher Rivera CAST NONE SEEN Normal NONE SEEN [facility] Comment on above: Performed By: #### U AMIC #### [facility] [address] [address] [address] Christopher Rivera Clarity (U) CLEAR Normal CLEAR [facility] Comment on above: Performed By: #### U AMIC #### [facility] [address] [place] [address] Dr. Christopher Rivera Color (U) LT. YELLOW Normal YELLOW [facility] Comment on above: Performed By: #### U AMIC #### [facility] [address] [place] [address] Dr. Christopher Rivera Crystals LM Nom (Urine sed) NONE SEEN Normal NONE SEEN [facility] Comment on above: Performed By: #### U AMIC #### [facility] [address] [place] [address] Dr. Christopher Rivera Epithelial cells LM Ql (Urine sed) FEW Abnormal NONE SEEN /RARE [facility] Comment on above: Performed By: #### U AMIC #### [facility] [address] [place] [address] Dr. Christopher Rivera Glucose Ql (U) Negative Normal NEGATIVE [facility] Comment on above: Performed By: #### U AMIC #### [facility] [address] [place] [address] Dr. Christopher Rivera Hemoglobin Ql (U) TRACE-INTACT Abnormal NEGATIVE [facility] Comment on above: Performed By: #### U AMIC #### [facility] [address] [place] [address] Dr. Christopher Rivera Ketones Ql (U) Negative Normal NEGATIVE [facility] Comment on above: Performed By: #### U AMIC #### [facility] [address] [address] [address] Christopher Rivera LEUKOCYTES Negative Normal NEGATIVE [facility] Comment on above: Performed By: #### U AMIC #### [facility] [address] [address] [address] Christopher Rivera MUCOUS NONE SEEN Normal NONE SEEN [facility] Comment on above: Performed By: #### U AMIC #### [facility] [address] [address] [address] Christopher Rivera Nitrite Ql (U) Negative Normal NEGATIVE [facility] Comment on above: Performed By: #### U AMIC #### [facility] [address] [place] [address] Dr. Christopher Rivera pH (U) 5.5 [pH] Normal 5-9 [facility] Comment on above: Performed By: #### U AMIC #### [facility] [address] [place] [address] Dr. Christopher Rivera RBC 0-2 Normal 0-2 [facility] Comment on above: Performed By: #### U AMIC #### [facility] [address] [address] [address] Christopher Rivera SPEC GRAVITY <=1.005 Abnormal 1.005-<=1.025 [facility] Comment on above: Performed By: #### U AMIC #### [facility] [address] [place] [address] Dr. Christopher Rivera UA PROTEIN Negative Normal NEGATIVE/ TRACE [facility] Comment on above: Performed By: #### U AMIC #### [facility] [address] [place] [address] Dr. Christopher Rivera Urobilinogen Qn (U) 0.2 {Allyssa'U}/dL Normal 0.2 - 1. 0 [facility] Comment on above: Performed By: #### U AMIC #### [facility] [address] [place] [address] Dr. Christopher Rivera WBC NONE SEEN Normal NONE SEEN [facility] Comment on above: Performed By: #### U AMIC #### [facility] [address] [address] [address] Christopher Rivera US KIDNEYS BLADDERon 09-01-2 [...] by: LAURA SORIANO Date: 2022-09-01 10:51 Normal [facility] XR KUB 1 VIEWon 08-26-2022 XR [...] by: RONNIE LYLES Date: 2022-08-26 12:57 Normal [facility] Pathology Noteon 02-20-2022 Pathology Note [id number] CD:127 Normal [facility] Outside Colonoscopyon 2021 Outside Colonoscopy [id number] D:127 Normal [facility] Reminderson 02-19-2022 Reminders - From: Zeny Andujar LPN To: N - Clinical; Sent: 02/19/2022 12:49:40 EDT Show up: 01/19/2032 07:00:00 EDT Subject: colonoscopy recall Due Date/Time: 02/19/2032 07:00:00 EDT Reminder/Recall Patient is due for screening colonoscopy 02/19/2032. Normal [facility] PREG HCG QUALon 02-18-2022 , QUAL Negative Normal NEGATIVE The [facility] Comment on above: Performed By: #### P REG #### [facility] [address] [place] [address] Dr. Christopher Rivera Lab Reportson 02-17-2022 Lab Reports [id number] D:127 Normal [facility] Covid-19 PCR (CVDTB)on SARS-CoV-2 (COVID-19) RNA SUNSHINE+probe Ql (Unsp spec) Not detected Normal NOT DETECTED [facility] Comment on above: Result Comment: This test is not yet approved or cleared by the [place] FDA. When there are no FDA-approved or cleared tests available, and other criteria are met, FDA can make tests available under an emergency access mechanism called an Emergency Use Authorization (EUA). The EUA for this test is supported by the [place] of Health and Human Service's (HHS's) declaration [...] SARS-CoV-2. Performed By: #### C VDTBH #### [facility] [address] [place] [address] Dr. Christopher Rivera Consent for Procedure/Surger yon 01-22-2022 Consent for Procedure/Surgery [id number] D:127 [place] Ambulatory Visit Summaryon 0 01-21-2022 Ambulatory Visit Summary NAHUM SEGOVIA :1980 Visit Date:01/21/2022 Ambulatory Visit Instructions Your Diagnosis Bloody diarrhea Tobacco use Your Care Team Attending Physician - GROVER HUNTER, Gregg Craig Primary Care Physician - Dee HUNTER, John Referring Physician - John Price [...] Shoulder impingement syndrome Tobacco use Uterine leiomyoma [place] CBC with Auto Differentialon 09-04-2021 Absolute Eos # 0.05 [facility] Absolute Lymph # 1.[address] [facility] Absolute Callahan # 0.86 [facility] lt Basophils (Bld) [#/Vol] 0 - 2 % [facility] Basophils Absolute [facility] Eosinophils/100 WBC (Bld) 1 % 0 - 5 % [facility] Hematocrit (Bld) [Volume fraction] 42.8 % 36 - 46 % [facility] Hemoglobin.gastroin testinal spec 1 Ql (Stl) 14.4 g/dL 12.0 - 16.0 g/dL [facility] Interpretation and review of laboratory results Abnormal [facility] Lymphocytes/100 WBC (Bld) 25 % 15 - 40 % [facility] MCH (RBC) [Entitic mass] 31.5 pg 26 - 34 pg [facility] MCHC (RBC) [Mass/Vol] 33.7 g/dL 31 - 37 g/dL [facility] MCV (RBC) [Entitic vol] 93.5 fL 80 - 100 fL [facility] Monocytes/100 WBC (Bld) 18 % High 4 - 8 % [facility] Morphology Vincent (Bld) [Interp] Manual Differential Performed [facility] Platelet distribution width (Bld) [Ratio] 13.3 % 12.1 - 15.2 % [facility] Platelets (Bld) [#/Vol] 227 10*3/uL [facility] RBC (Bld) [#/Vol] 4.57 10*6/uL 4.0 - 5.2 m/uL [facility] Segmented neutrophils/100 WBC (Bld) 56 % 47 - 75 % [facility] Segs Absolute 2.69 [facility] WBC (Bld) [#/Vol] 4.8 10*3/uL [facility] COVID-19, Rapidon 09-04-2021 SARS-CoV-2 (COVID-19) RNA SUNSHINE+probe Ql (Unsp spec) Not detected Not Detected [facility] Comment on above: Rapid NAAT: The specimen [...] management decisions. Fact sheet for Healthcare Providers: https://www.fda.gov/media/172820/download Fact sheet for Patients: https://www.fda.gov/media/116233/download Methodology: Isothermal Nucleic Acid Amplification Specimen Description .NASOPHARYNGEAL SWAB [facility] Comprehensive Metabolic Pane cristina 09-04-2021 Albumin [Mass/Vol] 4.2 g/dL 3.5 - 5.2 g/dL [facility] ALP (Bld) [Catalytic activity/Vol] 87 U/L 35 - 104 U/L [facility] ALT [Catalytic activity/Vol] 17 U/L 5 - 33 U/L [facility] Anion gap [Moles/Vol] 14 mmol/L 9 - 17 mmol/L [facility] AST [Catalytic activity/Vol] 17 U/L <32 [facility] Bilirubin [Mass/Vol] 0.51 mg/dL 0.30 - 1.20 mg/dL [facility] Calcium [Mass/Vol] 9.0 mg/dL 8.6 - 10. 4 mg/dL [facility] Chloride [Moles/Vol] 105 mmol/L 98 - 107 mmol/L [facility] CO2 [Moles/Vol] 18 mmol/L Low 20 - 31 mmol/L [facility] Creatinine [Mass/Vol] 0.64 mg/dL 0.50 - 0.90 mg/dL [facility] Free PSA/Total PSA [Mass fraction] 7.4 g/dL 6.4 - 8.3 g/dL [facility] GFR >60 >60 mL/min [facility] GFR Non- >60 >60 mL/min [facility] GFR/1.73 sq M.predicted MDRD (S/P/Bld) [Vol rate/Area] [facility] Comment on above: Average GFR for 40-4 9 years old: 99 mL/min/1.73sq m Chronic Kidney Disease: <60 mL/min/1.73sq m Kidney failure: <15 mL/min/1.73sq m eGFR calculated using average adult body mass. Additional eGFR calculator available at: http://www.Mobile Complete.Webflakes/multiple_crcl_2011.htm Glucose [Mass/Vol] 105 mg/dL High 70 - 99 mg/dL [facility] Interpretation and review of laboratory results Abnormal [facility] Potassium [Moles/Vol] 4.0 mmol/L 3.7 - 5.3 mmol/L [facility] Sodium [Moles/Vol] 137 mmol/L 135 - 144 mmol/L [facility] Urea nitrogen (BldV) [Mass/Vol] 9 mg/dL 6 - 20 mg/dL [facility] Urea nitrogen/Creatinine (Bld) [Mass ratio] 14 [facility] D-Dimer, Quantitativeon 03-2 D-Dimer, Quant 0.34 [facility] th Comment on above: When combined with [...] more prevalent in patients with distal DVT. [facility] EKG Rhythm Stripon H.Gerardo [facility] Troponinon 09-04-2021 Troponin, High Sensitivity <6 0 - 14 ng/L [facility] Comment on above: High Sensitivity Troponin values cannot be compared with other Troponin methodologies. Patients with high levels of Biotin oral intake (i.e >5mg/day) may have falsely decreased Troponin levels. Samples collected within 8 hours of biotin intake may require additional information for diagnosis. [facility] XR CHEST PORTABLEon 09-05-19 22 No acute disease. [facility] EXAMINATION: XR CHES T PORTABLE HISTORY: Reason for exam:->shortness of breath, left shoulder pain COMPARISON: 09/03/2021 TECHNIQUE: Portable AP upright FINDINGS: LUNGS: No significant pulmonary parenchymal abnormalities. Hyperinflation VASCULATURE: No increased pulmonary vasculature. PLEURA: No pneumothorax, effusion, or pleural thickening. CARDIAC: No cardiomegaly or cardiac silhouette abnormality. MEDIASTINUM: No visible mass or adenopathy. BONES: No fracture or visible bone lesion. OTHER: Negative. [facility] Ronnie Lyles MD - 09/04/2021 EXAMINATION: [...] lesion. OTHER: Negative. IMPRESSION: No acute disease. [facility] Work Phone: Radiology Study observation (narrative) [facility] Work Phone: XR CHEST PORTABLEOrdered By: Ronnie Lyles on 09-04-2021 [facility] Basic Metabolic Panelon 08-13 Anion gap [Moles/Vol] 13 mmol/L 9 - 17 mmol/L [facility] Calcium [Mass/Vol] 9.1 mg/dL 8.6 - 10. 4 mg/dL [facility] Chloride [Moles/Vol] 103 mmol/L 98 - 107 mmol/L [facility] CO2 [Moles/Vol] 18 mmol/L Low 20 - 31 mmol/L [facility] Creatinine [Mass/Vol] 0.64 mg/dL 0.50 - 0.90 mg/dL [facility] GFR >60 >60 mL/min [facility] GFR Non- >60 >60 mL/min [facility] GFR/1.73 sq M.predicted MDRD (S/P/Bld) [Vol rate/Area] [facility] Comment on above: Average GFR for 40-4 9 years old: 99 mL/min/1.73sq m Chronic Kidney Disease: <60 mL/min/1.73sq m Kidney failure: <15 mL/min/1.73sq m eGFR calculated using average adult body mass. Additional eGFR calculator available at: http://www.Mobile Complete.Webflakes/multiple_crcl_2012.htm Glucose [Mass/Vol] 100 mg/dL High 70 - 99 mg/dL [facility] [employer] Interpretation and review of laboratory results Abnormal [facility] Potassium [Moles/Vol] 4.2 mmol/L 3.7 - 5.3 mmol/L [facility] Sodium [Moles/Vol] 134 mmol/L Low 135 - 144 mmol/L [facility] Urea nitrogen (BldV) [Mass/Vol] 9 mg/dL 6 - 20 mg/dL [facility] Urea nitrogen/Creatinine (Bld) [Mass ratio] 14 [facility] CBC with Auto Differentialon 09-03-2021 Absolute Eos # 0.10 [facility] Absolute Lymph # 0.90 Low [facility] alth Absolute Callahan # 0.70 [facility] lth Basophils (Bld) [#/Vol] 0.00 10*3/uL [facility] Basophils/100 WBC (Bld) 1 % 0 - 2 % [facility] Differential Type YES [facility] Eosinophils/100 WBC (Bld) 1 % 0 - 5 % [facility] Hematocrit (Bld) [Volume fraction] 43.4 % 36 - 46 % [facility] Hemoglobin.gastroin testinal spec 1 Ql (Stl) 14.6 g/dL 12.0 - 16.0 g/dL [facility] Interpretation and review of laboratory results Abnormal [facility] Lymphocytes/100 WBC (Bld) 14 % Low 15 - 40 % [facility] MCH (RBC) [Entitic mass] 31.7 pg 26 - 34 pg [facility] MCHC (RBC) [Mass/Vol] 33.8 g/dL 31 - 37 g/dL [facility] MCV (RBC) [Entitic vol] 93.9 fL 80 - 100 fL [facility] Monocytes/100 WBC (Bld) 11 % High 4 - 8 % [facility] Platelet distribution width (Bld) [Ratio] 13.1 % 12.1 - 15.2 % [facility] Platelets (Bld) [#/Vol] 236 10*3/uL [facility] RBC (Bld) [#/Vol] 4.62 10*6/uL 4.0 - 5.2 m/uL [facility] Segmented neutrophils/100 WBC (Bld) 73 % 47 - 75 % [facility] Segs Absolute 4.70 [facility] h WBC (Bld) [#/Vol] 6.3 10*3/uL [facility] D-Dimer, Quantitativeon 08-13 D-Dimer, Quant 0.34 [facility] Comment on above: When combined with [...] more prevalent in patients with distal DVT. [facility] EKG Rhythm Stripon [facility] Microscopic Urinalysison - [facility] Epithelial Cells UA 0 TO 2 /HPF [facility] RBC, UA 2 TO 5 [facility] Troponinon 09-03-2021 Troponin, High Sensitivity <6 0 - 14 ng/L [facility] Comment on above: High Sensitivity Troponin values cannot be compared with other Troponin methodologies. Patients with high levels of Biotin oral intake (i.e >5mg/day) may have falsely decreased Troponin levels. Samples collected within 8 hours of biotin intake may require additional information for diagnosis. [facility] Urinalysison 09-03-2021 Bilirubin Urine Negative NEGATIVE [facility] Color, UA Yellow Yellow [facility] Glucose, Ur Negative NEGATIVE [facility] Interpretation and review of laboratory results Abnormal [facility] Ketones Ql (U) MODERATE Abnormal NEGATIVE [facility] Leukocyte esterase Test strip Ql (U) Negative NEGATIVE [facility] Nitrite, Urine Negative NEGATIVE [facility] pH, UA 5.0 [facility] Protein, UA Negative NEGATIVE [facility] Specific [place], UA 1.025 [facility] Turbidity UA Clear Clear [facility] Urinalysis Comments [facility] Urine Hgb 2+ Abnormal NEGATIVE [facility] Urobilinogen, Urine Normal Normal [facility] XR CHEST PORTABLEon 09-04-19 22 Hyperinflation, clear [...] lesion. OTHER: Negative. IMPRESSION: Hyperinflation, clear lungs [facility] Work Phone: Radiology Study observation (narrative) [employer] Phone: XR CHEST PORTABLEOrdered By: Ronnie Lyles on 09-03-[address] [address] HEAD WO CONTRASTOrdered B y: Joan Diallo on 01-22-2021 No evidence of acute intracranial hemorrhage, hematoma or other structural abnormality. Brain CT is stable compared to January 10, 2018. Intact calvarium and skull base. [employer] Phone: EXAMINATION: CT HEAD WO CONTRAST HISTORY: [...] hemorrhage or hematoma. No focal abnormal density. [employer] Phone: Sourav, pn Incoming Radiant Results From [employer] - 01/22/2021 11:13 AM EDT EXAMINATION: CT [...] 10, 2018. Intact calvarium and skull base. [employer] Phone: [employer] Phone: XR CERVICAL SPINE (4-5 VIEWS )Ordered By: Joan Landrum on 01-22-2021 Minimal degenerative changes, without fracture. [employer] Phone: EXAM: XR CERVICAL SP INE (4-5 VIEWS) HISTORY: S00.93XA 40-year-old female head contusion. COMPARISON: Cervical spine series 12/10/2020. TECHNIQUE: 5 views cervical spine. 6 images. FINDINGS: Minimal age expected degenerative changes in the cervical spine with no fracture or dislocation. Facets and spinous processes are normal. The intervertebral foramina are patent. Lung apices are clear. The odontoid is normal. [facility] Work Phone: Sourav, Mhpn Incoming Radiant Results From [employer] - 01/22/2021 11:44 AM EDT EXAM: XR [...] normal. IMPRESSION: Minimal degenerative changes, without fracture. [facility] Work Phone: [facility] Work Phone: Vital Signs Date Time Vital Sign Value Performing Clinician Faci lity 12-20-2024 08:37-0400 Body height 167.6 cm Johnathan Ramirez MD Work Phone: [facility] 12-20-2024 08:37-0400 Body mass index (BMI) [Ratio] 20.67 kg/m2 Johnathan Ramirez MD Work Phone: [facility] 12-20-2024 08:37-0400 Body temperature 98.01 [degF] Johnathan Ramirez MD Work Phone: [facility] 12-20-2024 08:37-0400 Body weight 58.1 kg Johnathan Ramirez MD Work Phone: [facility] 12-20-2024 08:37-0400 Diastolic blood pressure 62 mm[Hg] Johnathan Ramirez MD Work Phone: [facility] 12-20-2024 08:37-0400 Heart rate 70 /min Johnathan Ramirez MD Work Phone: [facility] 12-20-2024 08:37-0400 Respiratory rate 13 /min Johnathan Ramirez MD Work Phone: [facility] 12-20-2024 08:37-0400 SaO2% (BldA) [Mass fraction] 100 % Johnathan Ramirez MD Work Phone: [facility] 12-20-2024 08:37-0400 Systolic blood pressure 125 mm[Hg] Johnathan Ramirez MD Work Phone: [facility] 11-25-2024 16:30-0400 Diastolic blood pressure 74 mm[Hg] Mina Lindo MD Work Phone: Rep 11-25-2024 16:30-0400 Heart rate 57 /min Mina Lindo MD Work Phone: Rep 11-25-2024 16:30-0400 Respiratory rate 17 /min Mina Lindo MD Work Phone: [facility] [employer] 11-25-2024 16:30-0400 SaO2% (BldA) [Mass fraction] 100 % Mina Lindo MD Work Phone: Rep 11-25-2024 16:30-0400 Systolic blood pressure 139 mm[Hg] Mina Lindo MD Work Phone: [facility] [employer] 11-25-2024 12:27-0400 Body height 167.6 cm Mina Lindo MD Work Phone: Rep 11-25-2024 12:27-0400 Body mass index (BMI) [Ratio] 20.98 kg/m2 Mina Lindo MD Work Phone: Rep 11-25-2024 12:27-0400 Body temperature 98.71 [degF] Mina Lindo MD Work Phone: Rep 11-25-2024 12:27-0400 Body weight 58.97 kg Mina Lindo MD Work Phone: Rep 11-15-2024 12:15-0400 Diastolic blood pressure 74 mm[Hg] Iker Pacheco MD Work Phone: [facility] 11-15-2024 12:15-0400 SaO2% (BldA) [Mass fraction] 99 % Iker Pacheco MD Work Phone: [facility] 11-15-2024 12:15-0400 Systolic blood pressure 115 mm[Hg] Iker Pacheco MD Work Phone: [facility] 11-15-2024 10:45-0400 Heart rate 58 /min Iker Pacheco MD Work Phone: [facility] 11-15-2024 10:45-0400 Respiratory rate 15 /min Iker Pacheco MD Work Phone: [facility] 11-15-2024 09:00-0400 Body temperature 98.01 [degF] Iker Pacheco MD Work Phone: [facility] 11-15-2024 08:59-0400 Body height 170.2 cm Iker Pacheco MD Work Phone: [facility] 11-15-2024 08:59-0400 Body mass index (BMI) [Ratio] 20.36 kg/m2 Iker Pacheco MD Work Phone: [facility] 11-15-2024 08:59-0400 Body weight 58.97 kg Iker Pacheco MD Work Phone: [facility] 10-29-2024 15:30-0400 Diastolic blood pressure 54 mm[Hg] Bola Nam MD Work Phone: [employer] [facility] 10-29-2024 15:30-0400 Heart rate 59 /min Bola Nam MD Work Phone: [facility] 10-29-2024 15:30-0400 Respiratory rate 16 /min Bola Nam MD Work Phone: [facility] 10-29-2024 15:30-0400 SaO2% (BldA) [Mass fraction] 98 % Bola Nam MD Work Phone: Rep 10-29-2024 15:30-0400 Systolic blood pressure 118 mm[Hg] Bola Nam MD Work Phone: Rep 10-29-2024 13:19-0400 Body height 167.6 cm Bola Nam MD Work Phone: Rep 10-29-2024 13:19-0400 Body mass index (BMI) [Ratio] 20.18 kg/m2 Bola Nam MD Work Phone: Rep 10-29-2024 13:19-0400 Body temperature 98.01 [degF] Bola Nam MD Work Phone: Rep 10-29-2024 13:19-0400 Body weight 56.7 kg Bola Nam MD Work Phone: Rep 01-21-2022 15:46-0400 Blood Pressure Location [facility] [place] 01-21-2022 15:46-0400 Diastolic blood pressure 66 mm[Hg] [facility] [place] 01-21-2022 15:46-0400 Heart rate 72 /min [facility] [place] 01-21-2022 15:46-0400 Respiratory rate 16 /min [facility] [place] 01-21-2022 15:46-0400 Systolic blood pressure 124 mm[Hg] [facility] [place] 09-04-2021 10:30-0400 Diastolic blood pressure 69 mm[Hg] Alexis Brandon MD Work Phone: [facility] 09-04-2021 10:30-0400 Heart rate 97 /min Alexis Brandon MD Work Phone: [facility] 09-04-2021 10:30-0400 Respiratory rate 22 /min Alexis Brandon MD Work Phone: [facility] 09-04-2021 10:30-0400 SaO2% (BldA) [Mass fraction] 98 % Alexis Brandon MD Work Phone: [facility] 09-04-2021 10:30-0400 Systolic blood pressure 112 mm[Hg] Alexis Brandon MD Work Phone: [facility] 09-04-2021 07:44-0400 Body temperature 98.2 [degF] Alexis Brandon MD Work Phone: [facility] 09-03-2021 17:00-0400 Diastolic blood pressure 74 mm[Hg] Alexis Brandon MD Work Phone: [facility] 09-03-2021 17:00-0400 Heart rate 94 /min Alexis Brandon MD Work Phone: [facility] 09-03-2021 17:00-0400 Respiratory rate 15 /min Alexis Brandon MD Work Phone: [facility] 09-03-2021 17:00-0400 SaO2% (BldA) [Mass fraction] 96 % Alexis Brandon MD Work Phone: [facility] 09-03-2021 17:00-0400 Systolic blood pressure 119 mm[Hg] Alexis Brandon MD Work Phone: [facility] 09-03-2021 15:02-0400 Body height 167.6 cm Alexis Brandon MD Work Phone: [facility] 09-03-2021 15:02-0400 Body mass index (BMI) [Ratio] 20.98 kg/m2 Alexis Brandon MD Work Phone: [facility] 09-03-2021 15:02-0400 Body weight 58.97 kg Alexis Brandon MD Work Phone: [facility] 09-03-2021 15:01-0400 Body temperature 98.1 [degF] Alexis Brandon MD Work Phone: [facility] Encounters Encounter Date Encounter Type Care Provider Facility Start: 01-30-2025 End: 01-30-2025 Subsequent hospital visit by physician [facility] Comment on above: Arrived Start: 01-29-2025 End: 01-29-2025 [facility]ulatory [facility] Start: 01-29-2025 End: 01-29-2025 Subsequent hospital visit by physician [facility] Comment on above: Arrived Start: 01-26-2025 End: 01-26-2025 ambulatory [facility] Start: 01-25-2025 End: 01-26-2025 Orders Only Johnathan Ramirez MD Work Phone: [facility] Comment on above: Spinal stenosis of c ervical region (Primary Dx) recommended follow u p Arrived Start: 01-23-2025 End: 01-23-2025 ambulatory [facility] Start: 01-23-2025 End: 01-23-2025 Subsequent hospital visit by physician [facility] Comment on above: Arrived Start: 01-22-2025 End: 01-22-2025 ambulatory [facility] Start: 01-18-2025 End: 01-18-2025 ambulatory [facility] Start: 01-18-2025 End: 01-18-2025 Subsequent hospital visit by physician [facility] Comment on above: Arrived Start: 01-16-2025 End: 01-16-2025 ambulatory [facility] M [facility]EE [facility] [place] [facility] Start: 01-16-2025 End: 01-16-2025 Subsequent hospital visit by physician [facility] Comment on above: Arrived Start: 01-15-2025 End: 01-26-2025 ambulatory Johnathan Ramirez MD Work Phone: [facility] Comment on above: MRI/ heart monitor Start: 01-15-2025 End: 01-15-2025 Subsequent hospital visit by physician [facility] Comment on above: Arrived Start: 01-11-2025 End: 01-11-2025 ambulatory JOHN M JESICAAyaan [facility] Start: 01-11-2025 End: 01-11-2025 Subsequent hospital visit by physician [facility] Comment on above: Arrived Start: 01-09-2025 End: 01-09-2025 ambulatory JOHN Brandee JESICAAyaan [facility] Start: 01-09-2025 End: 01-09-2025 Subsequent hospital visit by physician [facility] Comment on above: Arrived Start: 01-08-2025 End: 01-08-2025 ambulatory [facility]EE [facility] Start: 01-08-2025 End: 01-08-2025 Subsequent hospital visit by physician [facility] Comment on above: Arrived Start: 01-04-2025 End: 01-04-2025 ambulatory JOHN Abarca JESICAAyaan [facility] Start: 01-04-2025 End: 01-04-2025 Subsequent hospital visit by physician [facility] Comment on above: Arrived Start: 01-02-2025 End: 01-02-2025 ambulatory [facility]EE [facility] Start: 01-02-2025 End: 01-02-2025 Subsequent hospital visit by physician [facility] Comment on above: Arrived Start: 01-01-2025 End: 01-01-2025 ambulatory JOHN Brandee HOY [facility] Start: 01-01-2025 End: 01-01-2025 Subsequent hospital visit by physician [facility] Comment on above: Arrived Start: 12-28-2024 End: 12-28-2024 ambulatory [facility] Start: 12-28-2024 End: 12-28-2024 Subsequent hospital visit by physician 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 RN [facility] Comment on above: Arrived Start: 12-21-2024 End: 12-21-2024 Telephone encounter Johnathan Ramirez MD Work Phone: [facility] Start: 12-20-2024 End: 12-20-2024 Telephone encounter Johnathan Ramirez MD Work Phone: [facility] Start: 12-20-2024 End: 12-20-2024 Office consultation new/estab patient 80 min Johnathan Ramirez MD Work Phone: [facility] Comment on above: Syncope and collapse (Primary Dx); Spinal stenosis of cervical region Start: 12-20-2024 End: 12-20-2024 ambulatory JOHNATHAN RAMIREZ Facility:[facility] Start: 12-08-2024 End: 12-26-2024 Telephone encounter Johnathan Ramirez MD Work Phone: Neurology Comment on above: Imaging/Records Start: 12-06-2024 End: 12-06-2024 Telephone encounter Neurology Provider [facility] Comment on above: Referral Information (Patient has referral to see a stroke physician see referral from [facility] imported into epic. //) Start: 11-30-2024 End: 11-30-2024 ambulatory [facility] Start: 11-30-2024 End: 11-30-2024 Subsequent hospital visit by physician Keya Mitchell PT [facility] Comment on above: Arrived Start: 11-29-2024 End: 11-29-2024 ambulatory [facility] Start: 11-25-2024 End: 11-25-2024 Emergency department patient visit Mina Lindo MD Work Phone: [facility] Emergency Department Comment on above: Dyspnea, unspecified type (Primary Dx); Costochondritis Start: 11-16-2024 ambulatory [facility]AD FRANCISCO [facility] Start: 11-15-2024 End: 11-17-2024 ambulatory JOHN PRICE [facility] Start: 11-15-2024 End: 11-17-2024 Subsequent hospital visit by physician [facility] Non-Invasive Cardiology Comment on above: Syncope and collapse Start: 11-15-2024 End: 11-15-2024 Emergency department patient visit Iker Pacheco MD Work Phone: [facility] Emergency Department Comment on above: TIA (transient ische cricket attack) (Primary Dx); Syncope and collapse; Symptoms of dehydration; Radicular pain in left arm Start: 11-08-2024 End: 11-08-2024 ambulatory [facility] Start: 11-08-2024 End: 11-08-2024 Encounter for other preprocedural examination [facility] Start: 10-30-2024 End: 10-30-2024 ambulatory [facility] Start: 10-29-2024 End: 10-29-2024 Emergency department patient visit Bola Nam MD Work Phone: [facility] Emergency Department Comment on above: Chest pain, unspecif ied type (Primary Dx) Start: 10-20-2024 End: 10-20-2024 ambulatory [facility] Start: 10-19-2024 ambulatory [facility] Start: 10-10-2024 End: 10-10-2024 ambulatory [facility] Start: 10-10-2024 End: 10-10-2024 ambulatory [facility] Start: 10-03-2024 End: 10-03-2024 ambulatory [facility] Start: 09-29-2024 End: 09-29-2024 ambulatory [facility] Start: 08-29-2024 End: 08-29-2024 Patient encounter procedure oJhn Price MD Work Phone: [facility] [place] Work Phone: Start: 08-29-2024 End: 08-29-2024 ambulatory John Price MD Work Phone: [facility] Work Phone: Start: 08-11-2024 End: 08-11-2024 Departed Referred Sergo Hummel [facility] DO Work Phone: [facility] [address] Work Phone: Start: 08-11-2024 End: 08-11-2024 ambulatory Sergo Hummel [facility] Work Phone: Start: 01-05-2024 End: 01-07-2024 Subsequent hospital visit by physician John Price MD Work Phone: [facility] Radiology Start: 05-04-2023 ambulatory JEANETTE CALABRESE Facility :[facility] Start: 05-04-2023 End: 05-04-2023 Subsequent hospital visit by physician Jeanette Calabrese 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 Work Phone: [facility] [place] Comment on above: Arrived Start: 03-29-2023 End: 03-30-2023 ambulatory CAROL ALVES [facility] Start: 03-04-2023 End: 03-05-2023 ambulatory QUYNH HUGHES [facility] Start: 02-26-2023 End: 02-27-2023 ambulatory JOHN PRICE [facility] Start: 02-26-2023 Encounter for gynecological examination (general) (routine) without abnormal [facility] Start: 09-21-2022 End: 09-22-2022 ambulatory SHELDON BENNETT Facility: Start: 09-01-2022 End: 09-02-[address] JOHN PRICE . Facility:[facility] Start: 08-26-2022 End: 08-27-[address] JOHN PRICE . Facility: Start: 02-18-2022 End: 02-19-2022 ambulatory Gregg NESS Facility:[id number] Start: 02-17-2022 Encounter for preprocedural laboratory examination DR GREGG NESS . [facility] Start: 02-14-2022 End: 02-15-[address] GREGG NESS . Facility:[facility] Start: 02-14-2022 End: 02-15-2022 Encounter for preprocedural laboratory examination DR GREGG NESS . Facility: Start: 01-21-2022 End: 01-22-2022 ambulatory Gregg NESS Facility:[facility] Start: 01-21-2022 End: 01-21-2022 Patient encounter procedure Gregg NESS General Surgery [facility] Start: 12-25-[address] JOHN PRICE . Facili ty:[facility] Start: 09-04-2021 End: 09-04-2021 Emergency department patient visit Alexis Brandon MD Work Phone: [facility] ED Comment on above: Shortness of breath (Primary Dx); Moderate persistent asthma with exacerbation; Dehydration; Diarrhea, unspecified type; Exacerbation of Crohn's disease with complication (HCC) Start: 09-03-2021 End: 09-03-2021 Emergency department patient visit Alexis Brandon MD Work Phone: [facility] ED Comment on above: Nausea and vomiting, intractability of vomiting not specified, unspecified vomiting type (Primary Dx); Diarrhea, unspecified type; Shortness of breath Start: 01-22-2021 End: 01-24-2021 Subsequent hospital visit by physician [facility] Radiology Comment on above: Contusion of head, u nspecified part of head, initial encounter Procedures Date Procedure Procedure Detail Performing Clinician Start: 11-25-2024 Radiologic exam ches t single view Mina Lindo MD Work Phone: Start: 11-25-2024 Comprehensive metabo lic panel Mina Lindo MD Work Phone: Start: 11-15-2024 End: 11-15-2024 [...] cervical 4 or 5 views Joan Diallo 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 AND 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 [employer]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 Work Phone: Start: 01-22-2021 Ct head/brain w/o co ntrast material Joan Diallo SUPERVISOR RECEIVING AND 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 ASSEMBLER Work Phone: Start: 06-09-2016 Diagnostic laparoscopy Gregg NESS Start: 05-09-2012 Diagnostic laparoscopy Gregg NESS Start: 05-20-2011 Colonoscopy Gregg SCHMIDT Cholecystectomy Gregg NESS Endometrial ablation Gregg NESS Ligation of fallopian tube Brandee pierson [place] Plan of Treatment Date Care Activity Detail Author Start: 11-26-2027 Diabetes Screening Diabetes Screening [facility] Start: 02-26-2026 Screening for malignant neoplasm of cervix [facility] [place] Start: 05-04-2025 Screening for malignant neoplasm of breast Breast cancer screen [facility] Start: 04-27-2025 Screening for malignant neoplasm of breast Breast cancer screen [employer] Start: 04-16-2025 End: 04-16-2025 Patient encounter procedure 04/16/2025 10:00 AM EST Appointment [facility] [address] [place] [address] [facility] Start: 04-16-2025 ambulatory Ambulatory Venus [facility] Start: 04-12-2025 End: 04-12-2025 Patient encounter procedure 04/12/2025 10:00 AM EDT Appointment [facility] [address] [place] [address] [facility] Start: 04-10-2025 End: 04-10-2025 Patient encounter procedure 04/10/2025 10:00 AM EDT Appointment [facility] [address] [place] [address] [facility] Start: 04-09-2025 End: 04-09-2025 Patient encounter procedure 04/09/2025 10:00 AM EDT Appointment [facility] [address] [place] [address] [facility] Start: 04-05-2025 End: 04-05-2025 Patient encounter procedure 04/05/2025 10:00 AM EDT Appointment [facility] [address] [place] [address] [facility] Start: 04-03-2025 End: 04-03-2025 Patient encounter procedure 04/03/2025 10:00 AM EDT Appointment [facility] [address] [place] [address] [facility] Start: 04-02-2025 End: 04-02-2025 Patient encounter procedure 04/02/2025 10:00 AM EDT Appointment [facility] [address] [place] [address] [facility] Start: 03-29-2025 End: 03-29-2025 Patient encounter procedure 03/29/2025 10:00 AM EDT Appointment [facility] [address] [place] [address] [facility] Start: 03-27-2025 End: 03-27-2025 Patient encounter procedure 03/27/2025 10:00 AM EDT Appointment [facility] [address] [place] [address] [facility] Start: 03-26-2025 End: 03-26-2025 Patient encounter procedure 03/26/2025 10:00 AM EDT Appointment [facility] [address] [place] [address] [facility] Start: 03-22-2025 End: 03-22-2025 Patient encounter procedure 03/22/2025 10:00 AM EDT Appointment [facility] [address] [place] [address] [facility] Start: 03-20-2025 End: 03-20-2025 Patient encounter procedure 03/20/2025 10:00 AM EDT Appointment [facility] [address] [place] [address] [facility] Start: 03-19-2025 End: 03-19-2025 Patient encounter procedure 03/19/2025 10:00 AM EDT Appointment [facility] [address] [place] [address] [facility] Start: 03-15-2025 End: 03-15-2025 Patient encounter procedure 03/15/2025 10:00 AM EDT Appointment [facility] [address] [place] [address] [facility] Start: 03-15-2025 [facility]ulatory [facility] Start: 03-13-2025 End: 03-13-2025 Patient encounter procedure 03/13/2025 10:00 AM EDT Appointment [facility] [address] [place] [address] [facility] Start: 03-12-2025 End: 03-12-2025 Patient encounter procedure 03/12/2025 10:00 AM EDT Appointment [facility] [address] [place] [address] [facility] Start: 03-08-2025 End: 03-08-2025 Patient encounter procedure 03/08/2025 10:00 AM EDT Appointment [facility] [address] [place] [address] [facility] Start: 03-06-2025 End: 03-06-2025 Patient encounter procedure 03/06/2025 10:00 AM EDT Appointment [facility] [address] [place] [address] [facility] Start: 03-05-2025 End: 03-05-2025 Patient encounter procedure 03/05/2025 10:00 AM EDT Appointment [facility] [address] [place] [address] [facility] Start: 03-01-2025 End: 03-01-2025 Patient encounter procedure 03/01/2025 10:00 AM EDT Appointment [facility] [address] [place] [address] [facility] Start: 02-27-2025 End: 02-27-2025 Patient encounter procedure 02/27/2025 10:00 AM EDT Appointment [facility] [address] [place] [address] [facility] Start: 02-26-2025 End: 02-26-2025 Patient encounter procedure 02/26/2025 10:00 AM EDT Appointment [facility] [address] [address] [facility] Start: 02-22-2025 End: 02-22-2025 Patient encounter procedure 02/22/2025 10:00 AM EDT Appointment [facility] [address] [address] [facility] Start: 02-20-2025 End: 02-20-2025 ambulatory 02/20/2025 9:15 AM EDT Procedure Cardiology [address] [place] [address] Heart Failure Cardiology Comment on above: Heart Failure Start: 02-20-2025 End: 02-20-2025 Patient encounter procedure Cardiology Comment on above: Heart Failure Symptoms of right-si ded weakness, neck pain, and paresthesias in the upper extremities - per Dr. Ramirez Start: 02-19-2025 End: 02-19-2025 Patient encounter procedure 02/19/2025 10:00 AM EDT Appointment [facility] [address] [place] [address] [facility] Start: 02-15-2025 End: 02-15-2025 Patient encounter procedure 02/15/2025 10:00 AM EDT Appointment [facility] [address] [place] [address] [facility] Start: 02-13-2025 End: 02-13-2025 Patient encounter procedure 02/13/2025 10:00 AM EDT Appointment [facility] [address] [place] [address] [facility] Start: 02-12-2025 Influenza vaccination [facility] Start: 02-12-2025 End: 02-12-2025 Patient encounter procedure 02/12/2025 10:00 AM EDT Appointment [facility] [address] [place] [address] [facility] Start: 02-12-2025 ambulatory Ambulatory [facility] Start: 02-08-2025 End: 02-08-2025 Patient encounter procedure 02/08/2025 10:00 AM EDT Appointment [facility] [address] [place] [address] [facility] Start: 02-06-2025 End: 02-06-2025 Patient encounter procedure 02/06/2025 10:00 AM EDT Appointment [facility] [address] [place] [address] [facility] Start: 02-05-2025 End: 02-05-2025 Patient encounter procedure 02/05/2025 10:00 AM EDT Appointment [facility] [address] [place] [address] [facility] Start: 02-01-2025 End: 02-01-2025 Patient encounter procedure 02/01/2025 10:00 AM EDT Appointment [facility] [address] [place] [address] [facility] Start: 01-30-2025 End: 01-30-2025 Patient encounter procedure 01/30/2025 10:00 AM EDT Appointment [facility] [address] [place] [address] [facility] Start: 01-29-2025 End: 01-29-2025 Patient encounter procedure 01/29/2025 10:00 AM EDT Appointment [facility] [address] [place] [address] [facility] Start: 01-25-2025 End: 04-26-2025 Alpha tocopherol [Mass/volume] in Serum or Plasma VITAMIN E/TOCOPHEROL Lab Routine Spinal stenosis of cervical region Expected: 01/25/2025, Expires: 04/26/2025 [facility] Comment on above: Expected: 01/25/2025, Expires: Start: 01-25-2025 End: 04-26-2025 Cobalamin (Vitamin B12) [Mass/volume] in Serum or Plasma VITAMIN B12 Lab Routine Spinal stenosis of cervical region Expected: 01/25/2025, Expires: 04/26/2025 [facility] Work Phone: Comment on above: Expected: 01/25/2025, Expires: Start: 01-25-2025 End: 04-26-2025 COPPER BLOOD COPPER BLOOD Lab Routine Spinal stenosis of cervical region Expected: 01/25/2025, Expires: 04/26/2025 [facility] Comment on above: Expected: 01/25/2025, Expires: Start: 01-25-2025 End: 04-26-2025 Folate [Mass/volume] in Serum or Plasma FOLATE, SERUM Lab Routine Spinal stenosis of cervical region Expected: 01/25/2025, Expires: 04/26/2025 [facility] Comment on above: Expected: 01/25/2025, Expires: Start: 01-25-2025 End: 01-25-2025 Patient encounter procedure 01/25/2025 10:00 AM EDT Appointment [facility] [address] [place] [address] [facility] Start: 01-23-2025 End: 01-23-2025 Patient encounter procedure 01/23/2025 10:00 AM EDT Appointment [facility] [address] [place] [address] [facility] Start: 01-22-2025 End: 01-22-2025 Patient encounter procedure 01/22/2025 10:00 AM EDT Appointment [facility] [address] [place] [address] [facility] Start: 01-18-2025 End: 01-18-2025 Patient encounter procedure 01/18/2025 10:00 AM EDT Appointment [facility] [address] [place] [address] [facility] Start: 01-16-2025 End: 01-16-2025 Patient encounter procedure 01/16/2025 10:00 AM EDT Appointment [facility] [address] [place] [address] [facility] Start: 01-15-2025 End: 01-15-2025 Patient encounter procedure 01/15/2025 10:00 AM EDT Appointment [facility] [address] [place] [address] [facility] Start: 01-12-2025 Influenza vaccination [facility] Start: 01-11-2025 End: 01-11-2025 Patient encounter procedure 01/11/2025 10:00 AM EDT Appointment [facility] [address] [place] [address] [facility] Start: 01-09-2025 End: 01-09-2025 Patient encounter procedure 01/09/2025 10:00 AM EDT Appointment [facility] [address] [place] [address] [facility] Start: 01-08-2025 End: 01-08-2025 Patient encounter procedure 01/08/2025 10:00 AM EDT Appointment [facility] [address] [place] [address] [facility] Start: 01-04-2025 End: 01-04-2025 Patient encounter procedure 01/04/2025 10:00 AM EDT Appointment [facility] [address] [place] [address] [facility] Start: 01-02-2025 End: 01-02-2025 Patient encounter procedure 01/02/2025 10:00 AM EDT Appointment [facility] [address] [place] [address] [facility] Start: 12-20-2024 End: 12-20-2024 Patient encounter procedure 12/20/2024 9:00 AM EDT [facility] [address] [phone] Johnathan Ramirez MD [address] [place], [place] [id number] TIA/CARDIAC SURGERY CLEARANCE [facility] Comment on above: TIA/CARDIAC SURGERY CLEARANCE Start: 11-15-2024 End: 11-15-2025 Extended cardiac holter monitor (3 days-14 day) [facility] Comment on above: Expected: 11/15/2024, Expires: 6 1 Occurrences starti ng 11/15/2024 until 11/15/2024 Start: 11-01-2024 End: 11-01-2024 Patient encounter procedure 11/01/2024 8:40 AM EDT Office Visit [facility] [address] [place] [id number] Quynh Hughes APRN - JACOB [address] [place] [address] [address] [place] [address] yearly [facility] Part [facility] Comment on above: yearly Start: 05-04-2024 Screening for malignant neoplasm of breast Mammogram Screening [facility] Start: 04-15-2024 Depression Screen Depression Screen [facility] Start: 03-26-2024 Screening for malignant neoplasm of breast MAMMOGRAM SCREENING DISCUSSION [facility] Start: 02-13-2024 COVID-19 Vaccine ( season) COVID-19 Vaccine ( season) [facility] Start: 01-13-2024 Influenza vaccination Flu vaccine (#1) [facility] Start: 11-11-2023 Diabetes Screening Diabetes Screening [facility] Start: 11-11-2023 Lipid panel Lipid Screening [facility] Start: 11-11-2023 Screening for malignant neoplasm of colon [facility] Start: 05-12-2023 End: 05-12-2023 Patient encounter procedure [facility] Start: 02-12-2023 Influenza vaccination INFLUENZA VACCINE (#1) [facility] Start: 02-12-2021 Influenza vaccination Flu vaccine (#1) [facility] Start: 2018 Lipid panel [facility] Start: 2018 Screening for malignant neoplasm of breast Mammogram Screening [facility] Start: 2008 Screening for malignant neoplasm of cervix [facility] Start: 11-11-1999 Screening for malignant neoplasm of cervix [facility] Start: 1997 DTaP/Tdap/Td vaccine (2 - Tdap) DTaP/Tdap/Td vaccine (2 - Tdap) [facility] Start: 1997 Hepatitis B vaccine (1 of 3 - 19+ 3-dose series) Hepatitis B vaccine (1 of 3 - 19+ 3-dose series) [facility] Start: 1997 Pneumococcal 0-49 years Vaccine (1 of 2 - PCV) Pneumococcal 0-49 years Vaccine (1 of 2 - PCV) [facility] Start: 1997 Pneumococcal vaccination Pneumococcal Vaccine (1 of 2 - PCV) [facility] Start: 1997 Third diphtheria, tetanus and acellular pertussis (DTaP) vaccination TDAP (ADULT) [facility] Start: 1997 Urine microalbumin profile [facility] Start: 1996 Anxiety Screening Anxiety Screening [facility] Start: 1996 Depression Screening Depression Screening [facility] Start: 1996 Hepatitis C screening [facility] Start: 1996 HIV screening HIV Screening [facility] Start: 1993 HIV screening [facility] Start: 1990 COVID-19 Vaccine (1) COVID-19 Vaccine (1) [facility] [employer] Work Phone: Start: 1990 Depression Screen Depression Screen [facility] Start: 1984 Pneumococcal 0-64 years Vaccine (1 of 2 - PCV) Pneumococcal 0-64 years Vaccine (1 of 2 - PCV) [facility] Start: 1984 Pneumococcal 0-64 years Vaccine (1 of 2 - PPSV23) Pneumococcal 0-64 years Vaccine (1 of 2 - PPSV23) [facility] Start: 11-11-1983 COVID-19 Vaccine (1) COVID-19 Vaccine (1) [facility] Start: 05-13-1979 COVID-19 VACCINE (#1) COVID-19 VACCINE (#1) [facility] Start: 03-13-1979 Polio vaccine (2 of 3 - 4-dose series) Polio vaccine (2 of 3 - 4-dose series) [facility] Start: 1978 Hepatitis B vaccine (1 of 3 - 3-dose series) Hepatitis B vaccine (1 of 3 - 3-dose series) [facility] Start: 1978 Hepatitis C screening [facility] Start: 1978 Tetanus vaccination TETANUS [facility] End: 12-28-2024 CARDIAC PHASE II CARDIAC PHASE II Card Rehab One Time for 1 Occurrences starting 12/28/2024 until 12/28/2024 [facility] Comment on above: One Time for 1 Occurrences starting 12/12 until 12/28/2024 End: 01-15-2025 CARDIAC PHASE II CARDIAC PHASE II Card Rehab One Time for 1 Occurrences starting 01/15/2025 until 01/15/2025 [facility] Comment on above: One Time for 1 Occurrences starting 09/2024 until 01/15/2025 End: 01-30-2025 CARDIAC PHASE II CARDIAC PHASE II Card Rehab One Time for 1 Occurrences starting 01/30/2025 until 01/30/2025 Rep Comment on above: One Time for 1 Occurrences starting 01/12 until 01/30/2025 Continuous pulse oximetry Pulse oximetry, continuous Respiratory Care STAT Every 4hr until discontinued starting 10/29/2024 Rep Comment on above: Every 4hr until discontinued starting EKG 12 Lead EKG 12 Lead ECG STAT 09/03/2021 3:11 PM EDT [employer] Work Phone: EKG 12 Lead EKG 12 Lead ECG STAT 09/04/2021 9:33 AM EDT [employer] Work Phone: EKG 12 Lead EKG 12 Lead ECG STAT 10/29/2024 1:23 PM EDT Rep End: 05-04-2023 MG Breast Views [facility] Work Phone: Comment on above: 1 Occurrences starting 05/04/2023 until 05/04/2023 End: 01-19-2026 MR Cervical spine WO contrast MRI CERVICAL SPINE WO IVCON Radiology Routine Spinal stenosis of cervical region 1 Occurrences starting 12/20/2024 until 01/19/2026 [facility] Work Phone: Comment on above: 1 Occurrences starting 12/20/2024 until 01/19/2026 OUTSIDE VENDOR CARDIAC OUTPATIENT EXTENDED RHYTHM RECORDING (WITHOUT TELEMETRY) OUTSIDE VENDOR CARDIAC OUTPATIENT EXTENDED RHYTHM RECORDING (WITHOUT TELEMETRY) Holter Routine Syncope and collapse Ordered: 12/20/2024 [facility] Comment on above: Ordered: 12/20/2024 Payers Date Payer Category Payer Unknown [id number] 2024 Self-pay 2024 [employer] BLUE CARD PPO OOS [id number] 2024 Unknown [id number] 2024 Unknown [facility] [place] [id number] 2024-Present [phone] [id number] [place] [address] [id number]. 7.3.322561.315 2021 Unknown ANTHEM ANTHEM HM O PPO POS [id number] 2021-Present [address] [place] [address] [id number]. 7.3.479589.315 1978 Unknown [id number] 2.16840.1.192723.3.579.2. 727 1978 Unknown [id number] 2.16840.1.745588.3.579.2. 727 1978 Unknown [id number] 2.16.840.1.229606.3.579.2. 593 1978 Unknown [id number] 2.16.840.1.453335.3.579.2. 593 1978 Unknown [id number] 2.16.840.1.526840.3.579.2. 593 1978 Unknown [id number] 2.16.840.1.497674.3.579.2. 593 1978 Unknown [id number] 2.16.840.1.411951.3.579.2. 593 1978 Unknown [id number] 2.16.840.1.188860.3.579.2. 593 1978 Unknown [id number] 2.16.840.1.028668.3.579.2. 173 1978 Unknown [id number] 2.16.840.1.600213.3.579.2. 173 1978 Unknown [id number] 2.16.840.1.931492.3.579.2. 173 1978 Unknown [id number] 2.16.840.1.485459.3.579.2. 594 1978 Unknown [id number] 2.16.840.1.727823.3.579.2. 174 1978 Unknown [id number] 2.16.840.1.509587.3.579.2. 174 1978 Unknown [id number] 2.16840.1.172147.3.579.2. 174 1978 Unknown [id number] 2.16840.1.000252.3.579.2. 174 1978 Unknown [id number] 2.16840.1.361670.3.579.2. 174 1978 Unknown [id number] 2.16840.1.643221.3.579.2. 174 1978 Unknown [id number] 2.16840.1.192391.3.579.2. 174 1978 Unknown [id number] 2.16.840.1.739675.3.579.2. 174 1978 Unknown [id number] 2.16840.1.015875.3.579.2. 174 1978 Unknown [id number] 2.16.840.1.034137.3.579.2. 174 1978 Unknown [id number] 2.16.840.1.873237.3.579.2. 174 1978 Unknown [id number] 2.16.840.1.621043.3.579.2. 174 1978 Unknown [id number] 2.16.840.1.877216.3.579.2. 174 1978 Unknown [id number] 2.16.840.1.106027.3.579.2. 174 1978 Unknown [id number] 2.16.840.1.439690.3.579.2. 174 1978 Unknown [id number] 2.16.840.1.000240.3.579.2. 174 1978 Unknown [id number] 2.16.840.1.487602.3.579.2. 174 1978 Unknown [id number] 2.16.840.1.818070.3.579.2. 174 1978 Unknown [id number] 2.16.840.1.048271.3.579.2. 174 1978 Unknown [id number] 2.16.840.1.079709.3.579.2. 174 1978 Unknown [id number] 2.16.840.1.976786.3.579.2. 174 1959 Unknown [id number] 1.2.840.648614.1.13.239.2. 7.3.784176.315 1959 Unknown [id number] 1.2.840.662696.1.13.239.2. 7.3.803010.315 Unknown [id number] 2.16.840.1.629957.3.579.2. 531 Social History Date Type Detail Facility Start: 01-24-2021 End: 12-28-2024 Tobacco smoking status LAIS Current every day smoker [employer] Phone: Start: 06-14-1999 History of tobacco use Cigarette Smo ker [facility] Start: 01-24-2021 End: 04-15-2023 Cigarettes smoked current (pack per day) - Reported JEANNINE Splore Start: 01-24-2021 End: 12-28-2024 Tobacco use and exposure Never used [facility] Start: 01-24-2021 End: 12-28-2024 Alcohol intake Current non-drinker of alcohol (finding) [facility] Work Phone: Start: 1980 Sex Assigned At Not on file M [employer] Work Phone: Start: 08-24-2021 End: 09-04-2021 Exposure to SARS-CoV-2 (event) Not sure [facility] Work Phone: Start: 01-21-2022 Tobacco smoking status Heavy t obacco smoker (finding) [facility] [employer] Start: 11-17-2024 Tobacco smoking status Never [facility] [employer] Start: 04-15-2023 End: 04-27-2023 Sex Assigned At Female [facility] Tobacco smoking stat [facility] Tobacco smoking consumption unknown [facility] Work Phone: Start: 07-24-2012 End: 08-12-2024 Sex Female (finding) [facility] Start: 1980 Sex Assigned At Female [facility] How often to you hav e a drink containing alcohol? Never [facility] [employer] Functional Status Date Assessment Result Facility 01-21-2022 Functional Status N/A [facility] [employer] [email or web address] Clinical Notes 01-22-2022 to 01-26-2025 Telephone Encounter - Linda Pastor RN - 01/26/2025 1:49 PM EDTTelephone Encounter - Linda Pastor RN - 01/26/2025 1:49 PM EDTTelephone Encounter - Brandon Batres - 01/16/2025 1:34 PM EDT Note Date & Type Note Facility 01-26-2025 Telephone encounter Note Faxed to [facility], see subsequent encounter. [facility] 01-26-2025 Miscellaneous Notes Faxed to [facility], see subsequent encounter. Received MRI report from [facility], scanned into patient's chart. documented in this encounter [facility] 01-25-2025 Note Cardiothoracic Surge ry Outpatient Follow-Up Reason For Visit Chief Complaint Patient presents with Follow-up Cyst, patient states that she is having back and sternum pain, stereum pain has got worse. History Of Present Illness Nahum Segovia is a 44 y.o. female with PMH [...] completed. She has since followed with a neurologist at [facility] where she was found to have a bulging disc for which she is undergoing further workup. She recently followed up with cardiology on 01/22/[address] Ragland, he started her on Farxiga and Entresto for GDMT for her HFrEF. She started the medications today, due to insurance coverage. She has an echocardiogram planned to be completed in a month at [facility]. States she is participating in cardiac rehab. She is feeling a little stronger. Still endorses intermittent chest pain and left shoulder pain. Endorses intermittent SOB and dizziness. All symptoms are unchanged and not progressively getting worse. Allergies Desonide, Fentanyl, Ibuprofen, Latex, Penicillins, Prednisone, Adhesive, Morphine, Zttyr-rxwzo-nnnjhhh-pramoxine, Bacitracin, and Cephalexin Medications Current Outpatient Medications [...] time. (Patient not taking: Reported on 01/25/2025) tiZANidine (Zanaflex) 4 [...] Cuff Size: Adult) Pulse 76 Temp 36.7 ???C (98 ???F) (Temporal) Physical Exam Vitals reviewed. Constitutional: General: [...] No respiratory distress. Breath sounds: Normal breath sound (more content not included)... [facility] 01-25-2025 Telephone encounter Note Images from the original note were not included. [facility] 01-25-2025 Miscellaneous Notes Images from the original note were not included. documented in this encounter [facility] 01-25-2025 History of Presen t illness Narrative 01/25/25 0711 Treatment Diagnosis Treatment Diagnosis 1 [...] O2 Device Room air Exercise Intervention/Prescription Mode Treadmill;Bike;Stepper;Ergomete r;Rower;Resistance training Frequency per week 3 D/WK Duration [...] Stress Management Techniques Connects with others Consults developmental services worker Currently Taking Psychotropic Meds No (N/A) Medication Changes (N/A) Psychosocial Education Education Cardiac meds;Stress management class;Coping techniques;Relaxation techniques;Signs/symptoms of depression Psychosocial Goals Patient Target Goals Assess presence or absence of depression using a valid screening tool Patient Treatment Goal PT WILL BE ABLE TO BEGIN 1:1 CR STAFF COUNSELING FOR STRESS & DEPRESSION AND ATTEND STRESS MGT CLASSES IN THE NEXT [...] emphasizes vegetables, fruits, wholegrains, healthy proteins and non-tropical oils Nutrition Goals Patient Target Goals LDL-C less than 70 and non-HDL-C <100 for those with ASCVD;Triglycerides less than 150 Patient Treatment Goal PT WILL BE ABLE TO LEARN AND ATTEMPT TO IMPROVE NUTRITIONAL INTAKE VIA NUTRITION CLASSES AND 1:1 EDUCATION IN THE NEXT 30 DAYS Goal Status In progress Progress Towards Goal 2/3 classes completed at this time focusing on Macronutrients, sodium intake, snacking healthier options. Education Learning Barrier Ready to [...] 10:35 AM EDT documented in this encounter [facility] 01-22-2025 Note [place] Cardiology - [facility] Subjective Nahum Segovia is a 44 y.o. year old female [...] presyncopal. Patient states she seen Neuro in [place] who stated MRI is good Neuro muscular [...] yesterday in the emergency room at [facility] due to the above symptoms. Evaluation was negative. She also complained of pain in the right upper arm after the cardiac catheterization procedure. She has tenderness in the upper arm and in the forearm. Visit of 01/22/2025: She is seen in follow-up. She reports that she has been about the same. She continues to have symptoms of shortness of breath with exertion NYHA class II symptoms. She continues to have symptoms of chest pain that are improved when she leans forward. Recently her leg swelling got worse and spironolactone was increased to 50 mg once daily. She continues to be on losartan and metoprolol succinate. She has an appointment with CT surgery on 01/25/2025 to discuss surgery for the pericardial cys (more content not included)... [facility] 01-16-2025 Telephone encounter Note Received MRI report from [facility], scanned into patient's chart. [facility] 12-28-2024 History of Presen t illness Narrative Cardiac Rehab Initial History and Assessment Nahum Quintanilla 1980 [id number] 12/28/2024 Pre-cert Verification: ELIGIBILITY CHECK COMPLETED BY CALLING DANNY TOUSSAINT AT [facility]. REPORTED TO BE IN NETWORK FOR SERVICE AND DX AND 20% CO-INSURANCE EXPECTED OOP UNTIL MAX OOP REACHED THEN 100%. PT STATES HAS MEDICAID SECONDARY. [employer] FINANCIAL ASSISTANCE APPLICATION IS OFFERED, BUT PT DENIES NEED AT THIS TIME. PT VERBALIZES UNDERSTANDING & ACCEPTANCE OF OWN FINANCIAL RESPONSIBILITY FOR OOP NOT COVERED. Primary Diagnosis: HEART FAILURE W/ LVEF 25% Onset: 09/23/24 Living Will: [] Yes [x] No On File: [] Yes [x] No [] N/A Durable Power of Flooring Machine Feeder: [] Yes [x] No Pt requests Living [...] GOOD BALANCE Current Exercise [] Yes - type/frequency/intensity/durati on: [x] No 6. Neurological [] None [] [...] HEALTH CONCERNS Relaxation techniques: PER BELOW Hobbies: [place] [place] Do you have a reliable support network [...] M2) BMI: 20.5 Waist Circumference: 31.25 IN. Bdplw-gp-Usodbj Ratio: 0.47 Cardiovascular- No edema, S1-S2 and apically regular to auscultation, strong bilateral upper and lower extremity pulses at +2, no carotid bruits. Monitor rhythm-SINUS RHYTHM VR- 67 NJ- 0.16 QRS- 0.08 QT- 0.38 Ejection Fraction- [...] graded exercise results as evidenced by the attaining and maintaining the prescribed target heart rate range, a Taco rating of perceived exertion between 11 and 16, duration of >30 - 50 [...] evidence by the Accomplishment Worksheet / [x] Initial Goal [] Progressing to [...] have progressed to 15 reps and feel fairly light on 2 prior occasions in the next [...] and medication compliance / [x] Initial Goal [] Progressing to Goal [] Not Meeting--Needs Reinforcement [] Goal Met [] Goal Not Met -To develop regular home aerobic exercise program for 20 - 60 minutes at least 2 non-rehab days per week, excluding 5 - 10 minutes warm-up and [...] per patient's self report, food diary, and Vctq-wvsi-Wqcfc screening survey / [x] Initial Goal [] Progressing to Goal [] Not Meeting--Needs Reinforcement [] Goal Met [] Goal Not Met To strive to eat < or = 30% of daily caloric intake of total fat and <10% of daily caloric saturated fat tracked by patient's self-report, food diary, and Dmcj-tkhw-Wykxs screening survey / [x] Initial Goal [] Progressing to Goal [] Not Meeting--Needs Reinforcement [] Goal Met [] Goal Not Met To have patient demonstrate knowledge about risk factor reduction, lifestyle modification, and heart health strategies with > / = 80% accuracy via pre- and post-program Test your Heart Health Knowledge screening tool / [x] Initial Goal [] Progressing to Goal [] Not Meeting--Needs Reinforcement [] Goal Met [] Goal Not Met Cosigned by Jordan Mcghee MD at 12/28/2024 2:37 PM EDT Cardiac Rehabilitation Physician Order Form Nahum Quintanilla 1980 [id number] 12/28/2024 [x] Phase 2 ECG Monitored Cardiac Rehabilitation [] ME [] Percutaneous Coronary Intervention [] Other: [] [...] SPINE DISCOMFORT & RT ARM PAIN SHARP-SORE Modalities: [x]Treadmill [x] UBE [x] [...] 2:37 PM EDT documented in this encounter [facility] 12-21-2024 Telephone encounter Note Images from the original note were not included. Faxed cardiac report heart monitor to [facility] and current office notes of 12-20-24 ECG is not completed as of today. [facility] Work Phone: 12-21-2024 Miscellaneous Notes Images from the original note were not included. Faxed cardiac report heart monitor to [facility] and current office notes of 12-20-24 ECG is not completed as of today. documented in this encounter [facility] 12-20-2024 Telephone encounter Note Images from the original note were not included. Faxed MRI Cervical order to [facility] per Dr. Ramirez. Dorothy Ragsdale RN [facility] 12-20-2024 Miscellaneous Notes Images from the original note were not included. Faxed MRI Cervical order to [facility] per Dr. Ramirez. Dorothy Ragsdale RN documented in this encounter [facility] 12-20-2024 Note HNO ID: [id number] Author: JOHNATHAN RAMIREZ MD Service: ? Author Type: Physician Type: Progress Notes Filed: 12/20/2024 12:07 Note Text: [facility] Initial Visit PCP: John Price [address] [place] [address] John Price for an opinion regarding possible TIA. My [...] Yes VATS, Date end of December 2024 Nahum Segovia is a 44-year-old female with a history of asthma, Crohn's disease, dumping syndrome, heart failure, pericardial cyst, and rheumatoid arthritis, presenting for evaluation of possible TIA. Nahum was referred from [facility] for evaluation of a possible TIA. She reports a history of balance issues, lightheadedness, and dizziness, described as both presyncope and room spinning. She also experiences numbness and tingling in her hands and feet, which have been ongoing for some time (approximately 6 months or more). She does not endorse dysarthria or difficulty swallowing. Nahum presented to the ER at [facility] Emergency Department on 11/15/2024 after a syncopal episode at home, during which she experienced chest pain and tinnitus. She is unsure how long she was unconscious. She reports that during the episode, she experienced uncontrollable urination. She does not endorse bowel incontinence. Nahum presented to the ER at [facility] on 11/17/2024 after developing dizziness and lightheadedness associated with pain and paresthesias in the right arm and leg. Nahum reports that her symptoms have been gradually [...] down her arm. She does not endorse left-sided weakness or facial weakness. Nahum reports that her symptoms have not improved [...] by mouth once daily. (Patient not taking: (more content not included)... [facility] 12-20-2024 History of Presen t illness Narrative [facility] Initial Visit PCP: John Price [address] [place] [address] John Price for an opinion regarding possible TIA. My [...] Yes VATS, Date end of December 2024 Nahum Segovia is a 44-year-old female with a history of asthma, Crohn's disease, dumping syndrome, heart failure, pericardial cyst, and rheumatoid arthritis, presenting for evaluation of possible TIA. Nahum was referred from [facility] for evaluation of a possible TIA. She reports a history of balance issues, lightheadedness, and dizziness, described as both presyncope and room spinning. She also experiences numbness and tingling in her hands and feet, which have been ongoing for some time (approximately 6 months or more). She does not endorse dysarthria or difficulty swallowing. Nahum presented to the ER at [facility] Emergency Department on 11/15/2024 after a syncopal episode at home, during which she experienced chest pain and tinnitus. She is unsure how long she was unconscious. She reports that during the episode, she experienced uncontrollable urination. She does not endorse bowel incontinence. Nahum presented to the ER at [facility] on 11/17/2024 after developing dizziness and lightheadedness associated with pain and paresthesias in the right arm and leg. Nahum reports that her symptoms have been gradually [...] down her arm. She does not endorse left-sided weakness or facial weakness. Nahum reports that her symptoms have not improved [...] to affected area two times a day. (Patient not taking: Reported on 12/20/2024) No current [...] BP Cuff Size: Regular Adult) Pulse 70 Temp 36.7 C (98 F) (Temporal) Resp 13 Ht 167.6 cm (5' 6 ) Wt 58.1 kg (128 lb 1.4 oz) SpO2 100% BMI 20.67 kg/m Mental Status: Awake, alert, visually attentive. Oriented [...] upper extremity. Cerebellar: No tremor was noted. Vfeyhz-ku-yiwr testing was intact bilaterally. Gait: Gait was [...] with ataxia and other neurological symptoms Modified Crissy Score: Score: 2 NIH Stroke Scale: LOC: [...] sinus bradycardia with sinus arrhythmia and occasional PVCs, but no atrial fibrillation. Cardiac catheterization revealed normal coronary angiogram and findings consistent with non-ischemic cardiomyopathy. From the neurological perspective, [...] for the MRI to be performed at [facility]. - Scheduled a follow-up video visit to review MRI results and discuss further management. Recording using ambient [employer] software for draft documentation of the visit was discussed with the patient/authorized life assurance representative; all questions welcomed and answered. Patient/authorized life assurance representative agreed to proceed I spent a total of 60 minutes on the date of service which included preparing to see the patient, tspc-vu-ibto patient care, completing clinical documentation, obtaining and/or reviewing separately obtained history, performing a medically appropriate examination, counseling and educating the patient/family/caregiver, and ordering medications, tests, or procedures SIGNATURE Johnathan Ramirez MD Staff, [facility] [place] [address] documented in this encounter [facility] 12-08-2024 Telephone encounter Note Images from the original note were not included. OSH imaging/records received from [facility]: December 08, 2024 - [facility] 12-08-2024 Miscellaneous Notes Images from the original note were not included. OSH imaging/records received from [facility]: December 08, 2024 - [facility] documented in this encounter [facility] 12-06-2024 Telephone encounter Note Patient has referral to see a stroke physician see referral from [facility] imported into [facility]. Diagnosis: Tia left side weakness. [facility] 12-06-2024 Miscellaneous Notes Patient has referral to see a stroke physician see referral from [facility] imported into [facility]. Diagnosis: Tia left side weakness. documented in this encounter [facility] 11-16-2024 Note Subjective Patient ID: Nahum Segovia [...] with cardiology. Most recently she went to [facility] on yesterday(11/15/24) for dizziness and syncope. States [...] PERRLA. Hearing Intact. Nasal And Oral Mucosa [place] And Moist. Pharynx Intact. Neck: Supple Without [...] Atraumatic In Appearanc (more content not included)... [facility] 10-30-2024 Note [place] Cardiology - [facility] Subjective Nahum Segovia is a 44 y.o. year old female patient being seen for a follow up cath. Patient states she feels exhausted, SOB, chest pain, palpitations Patient states she has an increase in anxiety since she stopped smoking weed and decreased cigarettes. Patient complains of chronic diarrhea since increasing water intake. Patient denies leg swelling. Patient states she was in [place] ER yesterday for chest pain and profuse [...] yesterday in the emergency room at [facility] due to the above symptoms. Evaluation was [...] is not ill-appearing. HENT: Head: Normocephalic and atraumat (more content not included)... [facility] 10-20-2024 Note Patient: Nahum chadwick Procedure Information Date/Time: 10/20/24 1000 Procedures: Coronary angiography Right heart cath Location: [facility] MAINFRAME CONSULTANT 2 [facility] / [facility] (Cath) Providers: Sarah Ragland MD [...] consented to blood products. Additional Equipment Requests [facility] 10-19-2024 Note Cardiothoracic Surge ry Outpatient Consultation [...] in acute distre (more content not included)... [facility] 10-19-2024 Note Vijay Beltran OB 1980 Addendum to MARCK Proctor's consult note from today On 10/19/2024 This [...] last month. Seng Irving MD Cardiac Surgery [facility] 09-29-2024 Note [place] Cardiology - [facility] Subjective Nahum Segovia is a 43 y.o. year old female patient being seen to establish care. Ref from Dr. Price for abnormal echo performed this week at [facility]. Says she smokes 1/2 PPD, and [...] normal. Behavior: Behavior (more content not included)... [facility] 08-29-2024 Radiology Diagnostic study note [facility] Main [place] [address] [place], [place] [id number] CT Scan Report Signed Patient: Nahum Guzman MR#: [id number] : 1980 Acct:[id number] Age/Sex: 43 / F ADM Date: 5 Loc: CT Room: Type: [facility] Attending Dr: John Price MD Copies to: [...] Rosa Jones M.D.08/29/2024 10:23 AM Dictation Location: [place] [address] Transcribed By: LISA 08/29/24 1023 Dictated By: Rosa Jones MD 08/29/24 1001 Signed By: 08/29/24 1023 [facility] Work Phone: 02-18-2022 Note OPERATIVE NOTE OPERATION [...] good condition. CC: John Price M.D. [facility] 01-22-2022 Note Chief Complaint consultation [...] Shoulder impingement syndrom (more content not included)... [facility] Comment on above: Result Comment: Elec tronically Signed By: GROVER HUNTER, Gregg Sidhu\Date and Time Signed: 01/22/22 08:44 EDT Evaluation + Plan note No data available for this section General Surgery [employer] Evaluation note Diagnosis Contusion of head, unspecified part of head, initial encounter documented in this encounter [employer] Phone: evaluation note* Diagnosis Contusion of head, unspecified part of head, initial encounter documented in this encounter [employer] Phone: evaluation note* Diagnosis Nausea and vomiting, intractability of vomiting not specified, unspecified vomiting type- Primary Diarrhea, unspecified type Shortness of breath documented in this encounter [employer] Phone: evaluation note* Diagnosis Shortness of breath- Primary Moderate persistent asthma with exacerbation Unspecified asthma, with exacerbation Dehydration Diarrhea, unspecified type Exacerbation of Crohn's disease with complication (HCC) documented in this encounter [employer] Phone: evaluation note* Diagnosis Abnormal finding on breast imaging Other (abnormal) findings on radiological examination of breast [facility] Work Phone: Evaluation note* Diagnosis Chest pain, unspecified type- Primary documented in this encounter [facility] note* Diagnosis TIA (transient ischemic attack)- Primary Unspecified transient cerebral ischemia Syncope and collapse Symptoms of dehydration Radicular pain in left arm Neuralgia, neuritis, and radiculitis, unspecified documented in this encounter [facility] note* Diagnosis Syncope and collapse documented in this encounter [facility] note* Diagnosis Dyspnea, unspecified type- Primary Costochondritis Tietze's disease documented in this encounter [facility] note* Diagnosis Syncope and collapse- Primary Spinal stenosis of cervical region Spinal stenosis in cervical region documented in this encounter [facility] note* Diagnosis Spinal stenosis of cervical region- Primary Spinal stenosis in cervical region [facility] Attachments The following attachments cannot be sent through Care Everywhere. * Clear Liquid Diet: General Info (Lithuanian) [facility] Dis[facility]* Attachments The following attachments cannot be sent through Care Everywhere. * Dehydration (Lithuanian) * Diarrhea (Lithuanian) [facility] Discharge instructions No data available for this section [facility] Surgery [facility] Discharge instructions* Attachments The following attachments cannot be sent through Care Everywhere. * Chest Pain (Lithuanian) [facility] Attachments The following attachments cannot be sent through Care Everywhere. * Fainting (Lithuanian) * Neuropathic Pain (Lithuanian) * TIA (Transient Ischemic Attack) (Lithuanian) [facility]* Attachments The following attachments cannot be sent through Care Everywhere. * SOB (Shortness of Breath) (Lithuanian) * Costochondritis (Lithuanian) [facility] No data available for this section General Surgery [facility] Reason for visit Narrative* Cardiology (Routine) - Closed Specialty Diagnoses / Procedures Referred By Mable t Referred To Contact Cardiology Diagnoses Syncope and collapse Procedures Extended cardiac holter monitor (3 days-14 day) [place] EXTERNAL ECG REC>48HR<7D REVIEW & INTERPRETATION [place] EXTERNAL ECG REC>48HR<7D RECORDING [place] EXTERNAL ECG REC>7D<15D RECORDING [place] EXTERNAL ECG REC>7D<15D REVIEW & INTERPRETATION Iker Pacheco MD [address] [place] [address] Phone: tel: fax: Referral ID Status Reason Start Date Expiration Date Visits Re quested Visits Authorized [id number] Closed 11/15/2024 11/15/2025 1 1 [facility] Advance Directives No Advanced Directives Records FoundDocuments on File Type Date Recorded 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 ACP-Advance Directive ACP-Power of Flooring Machine Feeder Documents on File Type Date Recorded 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 anation ACP-Advance Directive ACP-Power of Flooring Machine Feeder Advance Directive Response Recorded Date/ Time Advance Directives No August 25, 025 9:09am Reason for Referral Status Reason Specialty Diagnoses / Procedures Referre d By Contact Referred To Contact Closed Radiology Diagnoses Contusion of head, unspecified part of head, initial encounter Procedures CT HEAD WO CONTRAST Joan Landrum, SUPERVISOR RECEIVING AND 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 ASSEMBLER [address] [place] [address] [facility] [address] [place] [address] Specialty Diagnoses / Procedures Referred By Mable t Referred To Contact Diagnoses Abnormal finding on breast imaging Procedures BREAST IMAGING SECOND OPINION READING Jeanette Calabrese, 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 [address] [facility] [address] [place] [address] Referral ID Status Reason Start Date Expiration Date V isits Requested Visits Authorized [id number] New Request 05/04/2023 05/28/2024 1 1 Summary [...] HEAD WO CONTRAST Joan Landrum APRN - CROWN WHEEL ASSEMBLER [address] [place] [address] [facility] [address] [place] [address] Status Reason Specialty Diagnoses / Procedures Referre d By Contact Referred To Contact Open Radiology Diagnoses Contusion of unspecified part of head, initial encounter Procedures XR CERVICAL SPINE (4-5 VIEWS) [id number] Joan Landrum APRN - CROWN WHEEL ASSEMBLER [address] [place] [address] [facility] [address] [place] [address] Reason Comments Abdominal Pain pt reports woke up a round 3 am with chest pain, shortness of breath, nausea vomitting and diarrhea. Shortness of Breath Nausea Reason Comments Shortness of Breath increased sob Specialty Diagnoses / Procedures Referred By Contnito t Referred To Contact Diagnoses Abnormal finding on breast imaging Procedures BREAST IMAGING SECOND OPINION READING Jeanette Calabrese, 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 [address] [facility] [address] [place] [address] Referral ID Status Reason Start Date Expiration Date V isits Requested Visits Authorized [id number] New Request 05/04/2023 05/28/2024 1 1 Reason [...] but has been alone for 24 hrs. Reason Comments Referral Information Patient has referra l to see a stroke physician see referral from [facility] imported into [email or web address]. Reason Comments New Patient Evaluation Cardiac Clearance . Reason Comments Imaging/Records Scheduled Active and Recently Administ ered Medications [...] 1,000 mg, Oral, Once, 1 dose, On Wed10/29/24 at 1400, Maximum dose of acetaminophen is [...] mL/hr, Administer over 121 Minutes, ONCE, On 11/15/24 at 0915, For 1 dose 0910 (New [...] Care Teams (unrecognized sec tion and content) Compliance Clerk Relationship Specialty Start Date End Date John Price MD [address] [place] [address] PCP - General 10/13/12 Compliance Clerk Relationship Specialty Start Date End Date John Price MD [address] [place] [address] PCP - General 10/13/12 Compliance Clerk Relationship Specialty Start Date End Date John Price MD [address] [place] [address] PCP - General Family Medicine 04/30/23 Quynh Hughes CNM [address] [place] [address] [place] [address] Certified Nurse Pigment Mixer 04/30/23 Compliance Clerk Relationship Specialty Start Date End Date John Price MD [address] [place] [address] PCP - General 10/13/12 Team Status: Inactive Member Role Status Dates Sergo Hummel - [facility] Attending Provider Active Start: August 11, 2024 End: August 11, 2024 Team Status: Active Member Role Status Dates John Price MD Primary Care Provider Active Team Status: Inactive Member Role Status Dates John Price MD Primary Care Provide r, Attending Provider Active Start: August 29, 2024 End: August 29, 2024 Compliance Clerk Relationship Specialty Start Date End Date John Price MD [address] [place] [address] PCP - General 10/13/12 Compliance Clerk Relationship Specialty Start Date End Date John Price MD [address] [place] [address] PCP - General 10/13/12 Compliance Clerk Relationship Specialty Start Date End Date John Price MD [address] [place] [address] PCP - General 10/13/12 Compliance Clerk Relationship Specialty Start Date End Date John Price MD [address] [place] [address] PCP - General 10/13/12 Compliance Clerk Relationship Specialty Start Date End Date John Price MD [address] [place] [id number] PCP - General Family Medicine 12/19/24 Compliance Clerk Relationship Specialty Start Date End Date John Price MD [address] [place] [id number] PCP - General Family Medicine 12/19/24 Compliance Clerk Relationship Specialty Start Date End Date John Price MD [address] [place] [id number] PCP - General Family Medicine 12/19/24 Compliance Clerk Relationship Specialty Start Date End Date John Price MD [address] [place] [phone] PCP - General 10/13/12 Compliance Clerk Relationship Specialty Start Date End Date John Price MD [address] [place] [phone] PCP - General 10/13/12 Compliance Clerk Relationship Specialty Start Date End Date John Price MD [address] [place] [phone] PCP - General 10/13/12 Compliance Clerk Relationship Specialty Start Date End Date John Prcie MD [address] [place] [address] PCP - General 10/13/12 Compliance Clerk Relationship Specialty Start Date End Date John Price MD [address] [place] [address] PCP - General 10/13/12 Compliance Clerk Relationship Specialty Start Date End Date John Price MD [address] [place] [phone] PCP - General 10/13/12 Compliance Clerk Relationship Specialty Start Date End Date John Price MD [address] [place] [phone] PCP - General 10/13/12 Compliance Clerk Relationship Specialty Start Date End Date John Price MD [address] [place] [phone] PCP - General 10/13/12 Compliance Clerk Relationship Specialty Start Date End Date John Price MD [address] [place] [phone] PCP - General 10/13/12 Compliance Clerk Relationship Specialty Start Date End Date John Price MD [address] [place] [phone] PCP - General 10/13/12 Compliance Clerk Relationship Specialty Start Date End Date John Price MD [address] [place] [address] PCP - General Family Medicine 12/19/24 Compliance Clerk Relationship Specialty Start Date End Date John Price MD [address] [place] [address] PCP - General Family Medicine 12/19/24 Compliance Clerk Relationship Specialty Start Date End Date John Price MD [address] [place] [address] PCP - General 10/13/12 Ordered Prescriptions (unrec [...] section and content) DATE CREATED AUTHOR 02/24/2022 [facility] DATE CREATED AUTHOR AUTHOR'S ORGANIZ ATION 09/27/2022 [facility] DATE CREATED AUTHOR AUTHOR'S ORGANIZ ATION 03/31/2023 [facility] DATE CREATED AUTHOR AUTHOR'S ORGANIZ ATION 05/06/2023 [facility] DATE CREATED AUTHOR AUTHOR'S ORGANIZ ATION 07/04/2023 [facility] DATE CREATED AUTHOR AUTHOR'S ORGANIZ ATION 09/02/2024 [facility] DATE CREATED AUTHOR AUTHOR'S ORGANIZ ATION 12/29/2024 [facility] DATE CREATED AUTHOR AUTHOR'S ORGANIZ ATION 01/30/2025 [facility] DATE CREATED AUTHOR AUTHOR'S ORGANIZ ATION 01/31/2025 [facility] Goals (unrecognized section and content) Goals may be documented in a n alternate section Source Comments (unrecognize d section and content) In the event this informatio n is protected by the Federal Confidentiality of Alcohol and Drug Abuse Patient Records regulations: The Federal rules restrict any use of the information to criminally investigate or prosecute any alcohol or drug abuse patient.[facility] Hospital[facility] the event this information is protected by the Federal Confidentiality of Alcohol and Drug Abuse Patient Records regulations: The Federal rules restrict any use of the information to criminally investigate or prosecute any alcohol or drug abuse patient.[facility] HospitalIn the event this information is protected by the Federal Confidentiality of Alcohol and Drug Abuse Patient Records regulations: The Federal rules restrict any use of the information to criminally investigate or prosecute any alcohol or drug abuse patient.[facility] Hospital[facility] the event this information is protected by the Federal Confidentiality of Alcohol and Drug Abuse Patient Records regulations: The Federal rules restrict any use of the information to criminally investigate or prosecute any alcohol or drug abuse patient.[facility] HospitalIn the event this information is protected by the Federal Confidentiality of Alcohol and Drug Abuse Patient Records regulations: The Federal rules restrict any use of the information to criminally investigate or prosecute any alcohol or drug abuse patient.[facility] HospitalIn the event this information is protected by the Federal Confidentiality of Alcohol and Drug Abuse Patient Records regulations: The Federal rules restrict any use of the information to criminally investigate or prosecute any alcohol or drug abuse patient.[facility] HospitalIn the event this information is protected by the Federal Confidentiality of Alcohol and Drug Abuse Patient Records regulations: The Federal rules restrict any use of the information to criminally investigate or prosecute any alcohol or drug abuse patient.[facility] HospitalIn the event this information is protected by the Federal Confidentiality of Alcohol and Drug Abuse Patient Records regulations: The Federal rules restrict any use of the information to criminally investigate or prosecute any alcohol or drug abuse patient.[facility] FOR RECORDS PERTAINING TO PATIENTS WHO [...] BE BASED ON THE PRIMARY CLINICAL RECORDS. [employer] [facility]. provides no warranty or guarantee of the accuracy or completeness of information in this document.
[2025-01-31 13:26] LABS: Folate 12.30 ng/mL (8.60-58.90)
[2025-02-01 05:07] LABS: Vitamin B12 535 pg/mL (232-1245)
== END 2025-01-31 11:07 | disposition home or self-care (01) ==
LOC: LAB 11:12
PROVIDERS: PCP Family Medicine
DX: M48.02 Spinal stenosis, cervical region (principal)
CPT/HCPCS: 36415; 82525; 82607; 82746; 84446